=== PATIENT | male | born 1965 | race Caucasian/White ===

== ENCOUNTER 2017-05-09 15:00 | Outpatient (RCR) | payer MEDICAID, SELFPAY | END 2017-05-09 15:01 | disposition home or self-care (01) | LOC: PT 15:00 | PROVIDERS: PCP Emergency Medicine; Visit Provider Family Medicine | DX: M54.2 Cervicalgia (principal); M79.601 Pain in right arm | CPT/HCPCS: 97010; 97012; 97014; 97035; 97110; 97140; 97164; G0283 ==

== ENCOUNTER → 2017-10-20 13:24 | Outpatient (CLI) | payer MEDICAID, SELFPAY ==
[2017-10-20 15:57] LABS: Free T4 (Free Thyroxine) 1.21 ng/dl (0.76-1.46); Thyroid Stimulating Hormone 0.52 uIU/ml (0.358-3.740)
== END ==
PROVIDERS: PCP Emergency Medicine; Visit Provider Otolaryngology
DX: D49.7 Neoplasm of unspecified behavior of endocrine glands and other parts of nervous system (principal); E03.9 Hypothyroidism, unspecified
CPT/HCPCS: 36415; 84439; 84443

== ENCOUNTER → 2017-10-24 14:47 | Outpatient (CLI) | payer MEDICAID, SELFPAY ==
--- NOTE | 2017-10-24 14:49 | US_ITS ---
US thyroid HISTORY: ITS.REASON: thyroid neoplasm ORDERING PHYSICIAN: Ranjan Gonzales MD PATIENT AGE: 52 years Comparison: 08/30/2014 FINDINGS: Status post bilateral thyroidectomy. No nodules or residual tissue apparent. No abnormal fluid collections. IMPRESSION: Status post thyroidectomy with no masses or nodules apparent
== END ==
PROVIDERS: PCP Emergency Medicine; Visit Provider Otolaryngology
DX: E03.9 Hypothyroidism, unspecified (principal); D49.7 Neoplasm of unspecified behavior of endocrine glands and other parts of nervous system
CPT/HCPCS: 76536

== ENCOUNTER → 2018-04-06 12:56 | Outpatient (CLI) | payer MEDICAID, SELFPAY ==
[2018-04-06 13:30] LABS: Free T4 (Free Thyroxine) 1.29 ng/dl (0.76-1.46); Thyroid Stimulating Hormone 0.96 uIU/ml (0.358-3.740)
== END ==
PROVIDERS: Visit Provider Otolaryngology
DX: E03.9 Hypothyroidism, unspecified (principal)
CPT/HCPCS: 36415; 84439; 84443

== ENCOUNTER → 2019-04-05 11:31 | Outpatient (CLI) | payer OTHER, SELFPAY ==
[2019-04-05 12:59] LABS: Free T4 (Free Thyroxine) 1.38 ng/dl (0.76-1.46); Thyroid Stimulating Hormone 3.11 uIU/ml (0.358-3.740)
== END ==
PROVIDERS: Visit Provider Otolaryngology
DX: E03.9 Hypothyroidism, unspecified (principal)
CPT/HCPCS: 36415; 84439; 84443

== ENCOUNTER → 2020-04-10 11:45 | Outpatient (CLI) | payer OTHER, SELFPAY ==
[2020-04-10 13:16] LABS: Free T4 (Free Thyroxine) 1.38 ng/dl (0.78-2.19)
[2020-04-10 13:31] LABS: Thyroid Stimulating Hormone 0.47 uIU/mL (0.465-4.68)
== END ==
PROVIDERS: Visit Provider Otolaryngology
DX: E03.9 Hypothyroidism, unspecified (principal)
CPT/HCPCS: 36415; 84439; 84443

== ENCOUNTER → 2021-05-21 12:51 | Outpatient (CLI) | payer OTHER, SELFPAY ==
[2021-05-21 15:19] LABS: Basophils % 0.8 % (0.1-2.0); Eosinophils # 0.1 K/mm3 (0.0-0.4); Eosinophils % 1.6 % (0.1-12.0); Hemoglobin 14.5 g/dL (14.1-18.0); Lymphocytes # 2.2 K/mm3 (0.7-4.5); Lymphocytes % 46.9 % (10-50); Mean Corpuscular HGB Conc 32.3 g/dL (31.8-35.4); Mean Corpuscular Hemoglobin 30.1 pg (27.0-31.2); Mean Corpuscular Volume 93.1 fl (80-94); Mean Platelet Volume 9.4 fl (7.4-10.4); Monocytes # 0.4 K/mm3 (0.1-1.0); Monocytes % 8.6 % (1.7-9.3); Neutrophils % 42.2 % (37.0-80.0); Platelet Count 264 K/mm3 (142-424); Red Blood Count 4.83 M/mm3 (4.60-6.20); Red Cell Distribution Width 13.9 % (11.5-17.5); White Blood Count 4.6 K/mm3 (4.8-10.8)
[2021-05-21 16:24] LABS: Alanine Aminotransferase 28 U/L (12-78); Albumin Level 4.8 g/dl (3.5-5.0); Alkaline Phosphatase 43 U/L (38-126); Anion Gap 15.1 mEq/L (5-15); Aspartate Amino Transferase 35 U/L (17-59); Bilirubin,Total 0.5 mg/dl (0.2-1.3); Blood Urea Nitrogen 13 mg/dl (9-20); Calcium 9.6 mg/dl (8.4-10.2); Carbon Dioxide 27 mmol/L (22.0-30.0); Chloride 102 mmol/L (98-107); Chol/HDL Ratio 5.8 (1-3.5); Cholesterol 216 mg/dl (140-200); Estimated Glomerular Filt Rate 100 ml/min (>60); GFR (African American) 121 ML/MIN (>60); Globulin 2.4 g/dL (1.3-3.2); Glucose 99 mg/dl (74-100); HDL Cholesterol 37 mg/dl (40-60); Potassium 4.1 mmoL/L (3.5-5.1); Sodium 140 mmol/L (136-145); Total Protein,Serum 7.2 g/dl (6.3-8.2); Triglycerides 133 mg/dl (30-150); VLDL Cholesterol 27 mg/dL (0-40)
[2021-05-21 16:36] LABS: Direct LDL Cholesterol 137.77 mg/dL (100-129)
[2021-05-21 16:41] LABS: Free T4 (Free Thyroxine) 1.18 ng/dl (0.78-2.19)
[2021-05-21 16:56] LABS: Prostate Specific Ag Screen 0.6 ng/ml (0.0-4.0); Thyroid Stimulating Hormone 4.15 uIU/mL (0.465-4.68)
== END ==
PROVIDERS: Visit Provider Emergency Medicine
DX: C73 Malignant neoplasm of thyroid gland (principal); I10 Essential (primary) hypertension; E78.5 Hyperlipidemia, unspecified; E55.9 Vitamin D deficiency, unspecified; Z12.5 Encounter for screening for malignant neoplasm of prostate
CPT/HCPCS: 80053; 80061; 82306; 84439; 84443; 85025; G0103

== ENCOUNTER → 2021-06-02 09:22 | Outpatient (CLI) | payer OTHER, SELFPAY ==
--- NOTE | 2021-06-02 09:22 | MR_ITS ---
FINAL REPORT CLINICAL HISTORY: CHRONIC LBP X'S YEARS. PT STATES THAT BACK IS STIFF, PAIN RADIATES DOWN BILATERAL EXTREMITIES. FINDINGS: Multiplanar MR imaging of the lumbar spine was performed without contrast. On the sagittal T2-weighted images, disc degeneration is seen at several levels. There is no evidence of fracture. The conus has an unremarkable appearance. L1-2: No significant canal stenosis or neural foraminal narrowing. L2-3: No significant canal stenosis or neural foraminal narrowing. L3-4: An annular bulge is present. There is no significant canal stenosis or neural foraminal narrowing. L4-5: An annular bulge is present. There is mild bilateral neural foraminal narrowing. There is no significant canal stenosis. L5-S1: No significant canal stenosis or neural foraminal narrowing. IMPRESSION: Mild degenerative disc disease as above. Reviewed, Interpreted and Dictated by Дмитрий Prescott III, MD Transcribed by Rosa Maria Ribeiro Authenticated by Дмитрий Prescott III, MD on 06/03/2021 07:53:24 AM [facility]
--- NOTE | 2021-06-02 09:22 | MR_ITS ---
FINAL REPORT CLINICAL HISTORY: neck pain, chronic. nki. numbness tingling and pain that runs down bilateral extremities. FINDINGS: Multiplanar MR imaging of the cervical spine was performed without contrast. On the sagittal T2-weighted images, disc degeneration is seen at multiple levels. There is no evidence of fracture. There is mild kyphosis centered at C5-6. The cervical spinal cord has an unremarkable appearance without evidence of mass, edema or syrinx. No significant canal stenosis is identified. The cervicomedullary junction is normal. C2-3: There is no significant canal stenosis or neural foraminal narrowing. C3-4: There is no significant canal stenosis or neural foraminal narrowing. C4-5: An annular bulge is present. There is a new left paracentral disc protrusion which mildly indents the thecal sac. C5-6: There is disc osteophyte complex. There is a new small right paracentral disc protrusion which causes mild cord contouring. There is moderate bilateral neural foraminal narrowing, worse on the right as compared to the prior exam. There is mild central canal stenosis with an AP diameter of the thecal sac of 8 mm. C6-7: There is disc osteophyte complex. There is a stable small right paracentral disc protrusion. There is moderate right and mild left neural foraminal narrowing. C7-T1: There is no significant canal stenosis or neural foraminal narrowing. IMPRESSION: Multilevel degenerative disc disease as described above. New disc protrusions at C4-5 and C5-6 with a stable disc protrusion at C6-7. Reviewed, Interpreted and Dictated by Дмитрий Prescott III, MD Transcribed by Rosa Maria Ribeiro Authenticated by Дмитрий Prescott III, MD on 06/03/2021 07:53:25 AM [facility]
== END ==
PROVIDERS: PCP Emergency Medicine; Visit Provider Emergency Medicine
DX: M54.2 Cervicalgia (principal); M54.9 Dorsalgia, unspecified; M54.50 Low back pain, unspecified
CPT/HCPCS: 72141; 72148; 76376

== ENCOUNTER 2021-12-29 15:41 | Emergency (ER) | payer OTHER, SELFPAY ==
[2021-12-29 15:51] VITALS: BMI 29.4
--- NOTE | 2021-12-29 15:52 | CT_ITS ---
PROCEDURE INFORMATION: Exam: CT Abdomen And Pelvis With Contrast Exam date and time: 12/29/2021 4:24 PM Age: 56 years old Clinical indication: Abdominal pain; Generalized; Additional info: Rlq pain TECHNIQUE: Imaging protocol: Computed tomography of the abdomen and pelvis with contrast. Radiation optimization: All CT scans at this facility use at least one of these dose optimization techniques: automated exposure control; mA and/or kV adjustment per patient size (includes targeted exams where dose is matched to clinical indication); or iterative reconstruction. Contrast material: ISOVUE; Contrast volume: 75 ml; Contrast route: IV; COMPARISON: MR LUMBAR SPINE WO CON 06/02/2021 10:02 AM FINDINGS: Liver: Normal. No mass. Gallbladder and bile ducts: Normal. No calcified stones. No ductal dilation. Pancreas: Normal. No ductal dilation. Spleen: Normal. No splenomegaly. Adrenal glands: Normal. No mass. Kidneys and ureters: Mild right hydronephrosis and ureterectasis with abrupt transition of the caliber of the ureter in its distal 3rd, series 3, image 90 and contiguous. No obstructing stone is currently seen in this may be related to recent passage of a stone with some distal ureteral edema, or potentially a obstructing ureteral lesion. Urology consultation is recommended. Limited infiltration in the right perirenal fat. Stomach and bowel: Limited diverticulosis. Appendix: Normal appendix. Intraperitoneal space: Unremarkable. No free air. No significant fluid collection. Vasculature: Atherosclerosis without aneurysm. Lymph nodes: Unremarkable. No enlarged lymph nodes. Urinary bladder: Unremarkable as visualized. Reproductive: Unremarkable as visualized. Bones/joints: Unremarkable. No acute fracture. Soft tissues: Unremarkable. IMPRESSION: Mild right hydronephrosis and ureterectasis with abrupt transition of the caliber of the ureter in its distal 3rd, series 3, image 90 and contiguous. No obstructing stone is currently seen , and this may be related to recent passage of a stone with some distal ureteral edema, or potentially an obstructing ureteral lesion. Urology consultation is recommended.
[2021-12-29 15:53] VITALS: BP 177/90; PULSE 67; RESP 18; TEMP 36.6; O2SAT 98; BMI 29.4
[2021-12-29 15:57] LABS: Microscopic, Urine URINE MICROSCOPIC (MICROSCOPIC)
[2021-12-29 16:10] LABS: Basophils # 0.1 K/mm3 (0-0.2); Basophils % 0.6 % (0.1-2.0); Eosinophils # 0.1 K/mm3 (0.0-0.4); Eosinophils % 0.7 % (0.1-12.0); Hematocrit 44.9 % (42.0-52.0); Hemoglobin 14.9 g/dL (14.1-18.0); Lymphocytes # 1.4 K/mm3 (0.7-4.5); Lymphocytes % 11.7 % (10-50); Mean Corpuscular HGB Conc 33.1 g/dL (31.8-35.4); Mean Corpuscular Hemoglobin 29.5 pg (27.0-31.2); Mean Platelet Volume 8.5 fl (7.4-10.4); Monocytes # 0.6 K/mm3 (0.1-1.0); Monocytes % 4.6 % (1.7-9.3); Neutrophils # 10.1 K/mm3 (1.8-7.8); Neutrophils % 82.4 % (37.0-80.0); Platelet Count 267 K/mm3 (142-424); Red Blood Count 5.04 M/mm3 (4.60-6.20); Red Cell Distribution Width 13.5 % (11.5-17.5); White Blood Count 12.2 K/mm3 (4.8-10.8)
[2021-12-29 16:12] LABS: Appearance,Urine SL CLOUDY (Clear); Bilirubin,Urine Negative (Negative); Blood, Urine 1+ (Negative); Color,Urine YELLOW (Yellow); Glucose,Urine (UA) Negative (Negative); Ketones,Urine 1+ (Negative); Leukocyte Esterase,Urine Negative (Negative); Nitrate,Urine Negative (Negative); PH,Urine 5.5 (5.0-8.5); Protein,Urine Negative (Negative); Specific Gravity, Urine 1.025 (1.005-1.030); Urobilinogen,Urine 0.2 EU/dl (0.2)
[2021-12-29 16:12] LABS: Chloride 101 mmol/L (98-107); Potassium 4.3 mmoL/L (3.5-5.1); Sodium 138 mmol/L (136-145)
[2021-12-29 16:14] LABS: Amylase 77 U/L (30-110)
[2021-12-29 16:15] LABS: Alanine Aminotransferase 40 U/L (12-78); Albumin Level 4.6 g/dl (3.5-5.0); Alkaline Phosphatase 59 U/L (38-126); Anion Gap 15.3 mEq/L (5-15); Aspartate Amino Transferase 41 U/L (17-59); Bilirubin,Direct 0.2 mg/dl (0.0-0.4); Bilirubin,Indirect 0.2 mg/dL (0.0-0.9); Bilirubin,Total 0.4 mg/dl (0.2-1.3); Bilirubin,Unconjugated 0.3 mg/dL (0.0-1.1); Blood Urea Nitrogen 13 mg/dl (9-20); Calcium 9.8 mg/dl (8.4-10.2); Carbon Dioxide 26 mmol/L (22.0-30.0); Creatinine Clearance Estimated 89 mL/min (50-200); Estimated Glomerular Filt Rate 62 ml/min (>60); GFR (African American) 76 ML/MIN (>60); Glucose 125 mg/dl (74-100); Lipase 72 U/L (23-300); Total Protein,Serum 7.5 g/dl (6.3-8.2)
[2021-12-29 16:23] LABS: Squamous Epithelial Cell,Urine Occasional #/hpf (0-5); WBC,Urine Occasional #/hpf (0-3)
--- NOTE | 2021-12-29 16:27 | PC.NURSE ---
Pt to Rad
--- NOTE | 2021-12-29 16:31 | HMH.EDABDPAI ---
Discharge Plan Disposition Patient Disposition: Home, Self-Care Prescriptions Prescriptions: New tamsulosin [Flomax] 0.4 mg capsule 0.4 mg PO DAILY Qty: 10 0RF No Action fluticasone propionate 50 mcg/actuation spray,suspension See Rx Instructions .ROUTE .COMPLEX Qty: 16 5RF Dose Instruction: SPRAY 1 TIME IN EACH N OSTRIL ONCE A DAY Rx Instructions: SPRAY 1 TIME IN EACH N OSTRIL ONCE A DAY gabapentin 800 mg tablet 800 mg PO TID baclofen 10 mg tablet 10 mg PO TID hydrocodone-acetaminophen 10-325 mg tablet 1 tab PO Q8H PRN levothyroxine 125 mcg tablet 125 mcg PO DAILY Qty: 90 4RF montelukast 10 mg tablet See Rx Instructions .ROUTE .COMPLEX Qty: 90 3RF Dose Instruction: TAKE 1 TABLET 1 TIME EACH DAY IN THE EVENING FOR BREATHING PROBLEMS. Rx Instructions: TAKE 1 TABLET 1 TIME EACH DAY IN THE EVENING FOR BREATHING PROBLEMS. pantoprazole 40 mg tablet,delayed release (DR/EC) See Rx Instructions .ROUTE .COMPLEX Qty: 90 3RF Dose Instruction: TAKE 1 TABLET 1 TIME EACH DAY FOR REFLUX Rx Instructions: TAKE 1 TABLET 1 TIME EACH DAY pravastatin 40 mg tablet See Rx Instructions .ROUTE .COMPLEX Qty: 90 3RF Dose Instruction: TAKE 1 TABLET 1 TIME EACH DAY AT BEDTIME FOR CHOLESTEROL Rx Instructions: TAKE 1 TABLET 1 TIME EACH DAY AT BEDTIME FOR CHOLESTEROL lisinopril 10 mg tablet See Rx Instructions .ROUTE .COMPLEX Qty: 90 0RF Dose Instruction: TAKE 1 TABLET 1 TIME EACH DAY FOR BLOOD PRESSURE. Rx Instructions: TAKE 1 TABLET 1 TIME EACH DAY FOR BLOOD PRESSURE. polyethylene glycol 3350 17 gram/dose powder See Rx Instructions .ROUTE .COMPLEX Qty: 238 2RF Dose Instruction: MIX 17 GRAMS IN 8 OUNCES OF WATER AND DRINK ONCE A DAY. Rx Instructions: MIX 17 GRAMS IN 8 OUNCES OF WATER AND DRINK ONCE A DAY. Referrals Follow up/Referrals: Pastor Michel MD [Primary Care Provider] - See instructions Clinical Impressions Clinical Impression: Renal colic on right side Instructions Patient Instructions: DI for Kidney Stones Discharge ED Provider: Pastor Michel Abdominal Pain HPI General Chief Complaint: Abdominal Pain Stated Complaint: lower right Abd pain Time Seen by Provider: 12/29/21 16:05 Mode of Arrival: Wheelchair Source of Information: Patient and Medical Record Limitations: No Limitations Description of Symptoms (Recalled from ER Triage Doc. by RN): C/O RLQ pain since waking this AM. Denies difficulty with urination or BM. Advises that he vomited once earlier today. History of Present Illness HPI narrative: progressive rt sided lower abd pain since this am MD complaint: abdominal pain Onset (ago): hour(s) Consistency: constant Location: RLQ Severity: moderate Quality: sharp Associated symptoms: denies other symptoms Treatments prior to arrival: prescription analgesics Related Data Home Medications Medication Instructions Recorded Confirmed gabapentin 800 mg tablet 800 mg PO TID Pain 03/24/17 12/11/21 baclofen 10 mg tablet 10 mg PO TID Pain 10/19/18 12/11/21 hydrocodone 10 mg-acetaminophen 1 tab PO Q8H PRN 05/21/21 12/11/21 325 mg tablet Previous Rx's Medication Instructions Recorded levothyroxine 125 mcg tablet 125 mcg PO DAILY THYROID #90 tabs 08/20/21 montelukast 10 mg tablet See Rx Instructions .Route 08/20/21 .COMPLEX #90 tabs pantoprazole 40 mg tablet,delayed See Rx Instructions .Route 08/20/21 release .COMPLEX #90 tabs pravastatin 40 mg tablet See Rx Instructions .Route 08/20/21 .COMPLEX #90 tabs lisinopril 10 mg tablet See Rx Instructions .Route 08/23/21 .COMPLEX #90 tabs polyethylene glycol 3350 17 See Rx Instructions .Route 11/06/21 gram/dose oral powder .COMPLEX #238 grams fluticasone propionate 50 See Rx Instructions .Route 12/11/21 mcg/actuation nasal .COMPLEX #16 grams spray,suspension tamsulosin 0.4 mg capsule (Flomax) 0.4 mg PO DAILY #10
--- NOTE | 2021-12-29 16:34 | PC.NURSE ---
Pt returned from Rad via w/c and hooked back up to monitor
[2021-12-29 16:45] VITALS: BP 166/86; PULSE 80; O2SAT 96
--- NOTE | 2021-12-29 18:30 | PC.NURSE ---
pt family called back for update
[2021-12-29 18:35] VITALS: BP 127/87; PULSE 91; RESP 20; O2SAT 95
[2021-12-29 19:02] VITALS: BP 127/87; PULSE 94; RESP 18; TEMP 36.9; O2SAT 94
== END 2021-12-29 19:02 | disposition home or self-care (01) ==
PROVIDERS: Emergency Provider Emergency Medicine; PCP Emergency Medicine
DX: R10.31 Right lower quadrant pain (principal); R39.198 Other difficulties with micturition; Z79.51 Long term (current) use of inhaled steroids; Z79.899 Other long term (current) drug therapy
CPT/HCPCS: 74177; 80048; 80076; 81001; 82150; 83690; 85025; 96361; 96374; 96375; 99285; J2405; Q9967

== ENCOUNTER → 2022-05-15 14:04 | Outpatient (CLI) | payer OTHER, SELFPAY ==
--- NOTE | 2022-05-15 14:14 | CA_ITS ---
FINAL REPORT TECHNIQUE: Color Doppler, duplex Doppler and michel scale sonography of the bilateral neck arterial vasculature was performed. Velocities were measured in the carotid arteries. Stenosis evaluation based on the validated velocity criteria. CLINICAL HISTORY: bruit and dizziness, HTN, hyperlipidemia. FINDINGS: The peak systolic velocity of the right common carotid artery is 108 cm/s. The peak systolic velocity of the right internal carotid artery is 92 cm/s and end diastolic velocity 45 cm/s. The ICA CCA ratio was 0.98. A small amount of plaque is present. The right external carotid artery is patent. The right vertebral artery is patent with antegrade flow. The peak systolic velocity of the left common carotid artery is 123 cm/s. The peak systolic velocity of the left internal carotid artery is 106 cm/s and end diastolic velocity 48 cm/s. The ICA CCA ratio was 1.0. A small amount of plaque is present. The left external carotid artery is patent.The left vertebral artery is patent with antegrade flow. IMPRESSION: Less than 50% bilateral carotid stenoses. Bilateral patent vertebral arteries with antegrade flow. If indicated, CTA or MRA could further evaluate. Reviewed, Interpreted and Dictated by Дмитрий Prescott III, MD Transcribed by May Banks Authenticated and [facility]
== END ==
PROVIDERS: PCP Emergency Medicine; Visit Provider Emergency Medicine
DX: R09.89 Other specified symptoms and signs involving the circulatory and respiratory systems (principal); R42 Dizziness and giddiness
CPT/HCPCS: 93880

== ENCOUNTER → 2022-05-27 09:36 | Outpatient (CLI) | payer OTHER, SELFPAY ==
[2022-05-27 11:03] LABS: Blood Urea Nitrogen 12 mg/dl (9-20); Estimated Glomerular Filt Rate 77 ml/min (>60); GFR (African American) 93 ML/MIN (>60)
== END ==
PROVIDERS: PCP Emergency Medicine; Visit Provider Emergency Medicine
DX: I10 Essential (primary) hypertension (principal)
CPT/HCPCS: 36415; 82565; 84520

== ENCOUNTER → 2022-05-28 12:26 | Outpatient (CLI) | payer OTHER, SELFPAY ==
--- NOTE | 2022-05-28 12:26 | CT_ITS ---
FINAL REPORT CLINICAL HISTORY: carotid stenosis FINDINGS: Thin section axial CT with IV contrast supplemented with multiplanar reconstruction under CT angiogram protocol. This study was performed with techniques to keep radiation doses as low as reasonably achievable (ALARA). Individualized dose reduction techniques using automated exposure control or adjustment of mA and/or kV according to the patient''s size were employed. NASCET criteria was utilized during interpretation. Aortic arch: Arch shows no significant narrowing. Great vessel origins are widely patent. Right carotid: Very mild calcification. Left than 50% stenosis of the proximal ICA. Remaining ICA is patent to the skull base. Left carotid: Less than 50% stenosis of the proximal left ICA due to calcified plaque. Vertebral: Left vertebral artery is dominant. No significant stenosis is present. IMPRESSION: Less than 50% bilateral carotid stenosis. Reviewed, Interpreted and Dictated by La Doty MD Transcribed by Anderson Landa Authenticated and [facility]
== END ==
PROVIDERS: PCP Emergency Medicine; Visit Provider Emergency Medicine
DX: I65.23 Occlusion and stenosis of bilateral carotid arteries (principal)
CPT/HCPCS: 70498; Q9967

== ENCOUNTER → 2022-11-01 10:11 | Outpatient (CLI) | payer OTHER, SELFPAY ==
--- NOTE | 2022-11-01 10:17 | CT_ITS ---
FINAL REPORT TECHNIQUE: Axial images through the abdomen and pelvis were performed without contrast. This study was performed with techniques to keep radiation doses as low as reasonably achievable, (ALARA). Individualized dose reduction techniques using automated exposure control or adjustment of mA and/or kV according to the patient's size were employed. CLINICAL HISTORY: kidney stone, rt flank pain COMPARISON: 12/29/2021 FINDINGS: Abdomen: The lung bases are clear. The liver parenchyma is homogeneous. The gallbladder is present. The spleen, pancreas, adrenals and kidneys are unremarkable. There is marked right hydronephrosis and proximal hydroureter. There is abnormal soft tissue density associated with the mid right ureter. Mild surrounding stranding is identified. There is an apparent soft tissue mass in the mid right ureter well seen on images 35 and 36 of series 601. There has been interval development of adenopathy adjacent to the ureteral mass, largest measuring 2.8 cm in greatest dimension. Other nodes measure up to 1.8 cm in greatest dimension. Pelvis: The urinary bladder is decompressed. There are scattered diverticula throughout the sigmoid colon. The appendix is not visualized. IMPRESSION: Soft tissue mass in the mid right ureter highly concerning for the possibility of transient cell carcinoma. Recommend retrograde ureterogram and urologic evaluation. Interval development of extensive adenopathy. Reviewed, Interpreted and Dictated by Oscar Fried MD Transcribed by May Banks Authenticated and [facility]
[2022-11-01 12:54] LABS: MANUAL DIFFERENTIAL MANUAL DIFFERENTIAL (MANUAL DIFF)
[2022-11-01 13:03] LABS: Basophils % 0.5 % (0.1-2.0); Eosinophils # 0.1 K/mm3 (0.0-0.4); Eosinophils % 1.4 % (0.1-12.0); Hematocrit 44.5 % (42.0-52.0); Hemoglobin 14.6 g/dL (14.1-18.0); Lymphocytes # 2.2 K/mm3 (0.7-4.5); Lymphocytes % 28.6 % (10-50); Mean Corpuscular HGB Conc 32.8 g/dL (31.8-35.4); Mean Corpuscular Hemoglobin 29.7 pg (27.0-31.2); Mean Corpuscular Volume 90.4 fl (80-94); Mean Platelet Volume 8.7 fl (7.4-10.4); Monocytes # 0.6 K/mm3 (0.1-1.0); Monocytes % 8.3 % (1.7-9.3); Neutrophils # 4.7 K/mm3 (1.8-7.8); Neutrophils % 61.2 % (37.0-80.0); Platelet Count 291 K/mm3 (142-424); Red Blood Count 4.92 M/mm3 (4.60-6.20); Red Cell Distribution Width 13.3 % (11.5-17.5); White Blood Count 7.6 K/mm3 (4.8-10.8)
[2022-11-01 13:23] LABS: Lymphocytes % 33 % (10-50); Monocytes % 9 % (2-9); Neutrophils % 58 % (42-76); Platelet Estimate Normal; RBC Morphology Normal; Total Cells Counted 100
[2022-11-01 18:47] LABS: Alanine Aminotransferase 40 U/L (12-78); Albumin Level 4.9 g/dl (3.5-5.0); Albumin/Globulin Ratio 1.4 (1.1-1.8); Alkaline Phosphatase 75 U/L (38-126); Anion Gap 19.6 mEq/L (5-15); Aspartate Amino Transferase 36 U/L (17-59); Bilirubin,Indirect 0.2 mg/dL (0.0-0.9); Bilirubin,Total 0.2 mg/dl (0.2-1.3); Bilirubin,Unconjugated 0.3 mg/dL (0.0-1.1); Blood Urea Nitrogen 18 mg/dl (9-20); Calcium 10.2 mg/dl (8.4-10.2); Carbon Dioxide 27 mmol/L (22.0-30.0); Chloride 97 mmol/L (98-107); Cholesterol 217 mg/dl (140-200); Estimated Glomerular Filt Rate 48 ml/min (>60); GFR (African American) 58 ML/MIN (>60); Globulin 3.4 g/dL (1.3-3.2); Glucose 106 mg/dl (74-100); HDL Cholesterol 27 mg/dl (40-60); Potassium 4.6 mmoL/L (3.5-5.1); Sodium 139 mmol/L (136-145); Total Protein,Serum 8.3 g/dl (6.3-8.2); Triglycerides 162 mg/dl (30-150); VLDL Cholesterol 32 mg/dL (0-40)
[2022-11-01 18:58] LABS: Direct LDL Cholesterol 142.43 mg/dL (100-129)
[2022-11-01 19:04] LABS: 25-OH Vitamin D, Total 40.6 ng/mL (30-100)
[2022-11-01 19:18] LABS: Thyroid Stimulating Hormone 3.79 uIU/mL (0.465-4.68)
== END ==
PROVIDERS: Family Medicine; PCP Emergency Medicine; Visit Provider Emergency Medicine
DX: E55.9 Vitamin D deficiency, unspecified (principal); E78.5 Hyperlipidemia, unspecified; N39.0 Urinary tract infection, site not specified; E66.3 Overweight; Z68.27 Body mass index [BMI] 27.0-27.9, adult; N23 Unspecified renal colic; K21.9 Gastro-esophageal reflux disease without esophagitis
CPT/HCPCS: 74176; 80053; 80061; 80076; 82306; 84439; 84443; 85007; 85014; 85018; 85048; 85049; 87086

== ENCOUNTER → 2022-12-30 09:10 | Outpatient (CLI) | payer OTHER, SELFPAY ==
[2022-12-30 19:35] LABS: Anion Gap 17.6 mEq/L (5-15); Carbon Dioxide 25 mmol/L (22.0-30.0); Chloride 101 mmol/L (98-107); Potassium 4.6 mmoL/L (3.5-5.1); Sodium 139 mmol/L (136-145)
== END ==
PROVIDERS: PCP Internal Medicine; Visit Provider Internal Medicine
DX: E87.6 Hypokalemia (principal)
CPT/HCPCS: 80051

== ENCOUNTER 2023-03-06 10:23 | Outpatient (CLI) | payer OTHER, SELFPAY ==
[2023-03-06 19:09] LABS: Amphetamine/Metha Screen,Urine Negative ng/ml (<1000); Barbiturates Screen,Urine Negative ng/ml (<200); Benzodiazepines Screen,Urine Negative ng/ml (<200); Cannabinoid Screen,Urine Positive ng/ml (<50); Cocaine Screen,Urine Negative ng/ml (<300)
[2023-03-06 19:31] LABS: Methadone Screen,Urine Negative ng/ml (<300); Opiate Screen,Urine Negative ng/ml (<300); Phencyclidine Screen,Urine Negative ng/ml (<25)
== END 2023-03-06 23:59 ==
PROVIDERS: PCP Internal Medicine; Visit Provider Internal Medicine
DX: Z79.899 Other long term (current) drug therapy (principal)
CPT/HCPCS: 80307

== ENCOUNTER 2023-06-26 07:38 | Outpatient (CLI) | payer OTHER, SELFPAY ==
--- NOTE | 2023-06-26 07:45 | CT_ITS ---
FINAL REPORT TECHNIQUE: Routine axial images were obtained from the lung apices to below the diaphragm following IV contrast administration. Individualized dose reduction techniques using automated exposure control or adjustment of the mA and/or kV according to the patient size were employed. CLINICAL HISTORY: MALIGNANT TUMOR OF RT URETER COMPARISON: None FINDINGS: The mediastinal vasculature is adequately opacified. There is a right-sided chest port terminating in the SVC. No pleural or pericardial effusion is seen. No adenopathy or mass lesion is present. There are multiple nodular passages bilaterally which are ill-defined and well-seen in the superior segment of the left lower lobe on image 41 of series 6, this measures approximately 2 cm. IMPRESSION: Ill-defined nodular opacities which may be inflammatory or neoplastic. Recommend 4 to 6-week follow-up. Reviewed, Interpreted and Dictated by Oscar Fried MD Transcribed by PEDRO Flores Authenticated and [facility]
--- NOTE | 2023-06-26 07:45 | CT_ITS ---
FINAL REPORT TECHNIQUE: Pre-and postcontrast axial CT images of the abdomen and pelvis were obtained. Coronal reformatted images were also obtained and reviewed.This study was performed with techniques to keep radiation doses as low as reasonably achievable (ALARA). Individualized dose reduction techniques using automated exposure control or adjustment of mA and/or kV according to the patient''''s size were employed. CLINICAL HISTORY: MALIGNANT TUMOR OF RT URETER COMPARISON: 11/01/2022 FINDINGS: CT OF THE ABDOMEN AND PELVIS WITH AND WITHOUT CONTRAST Abdomen: The liver is mildly fatty infiltrated. The gallbladder is present.. The spleen is unremarkable. No adrenal mass is present. The pancreas has an unremarkable appearance. There is a right ureteral stent present with the proximal loop of the ureter within the right renal pelvis and the distal loop terminating in the urinary bladder. There is soft tissue thickening of the mid right ureter. The aorta is normal in caliber. There are small lymph nodes in the retroperitoneum, nonspecific. There are slightly more evident from the prior exam. No mass or abnormal fluid collection is seen. There is a large amount of stool throughout the colon. Pelvis: The appendix is not well-visualized. The urinary bladder thickened. Wall is diffusely No inflammatory process is seen. There is no evidence of bowel obstruction. Precontrast imaging demonstrates no evidence of nephrolithiasis. IMPRESSION: Interval placement of right ureteral stent. Abnormal urinary bladder wall thickening, may be due to cystitis. Small retroperitoneal lymph nodes more numerous from prior exam, cannot exclude metastatic adenopathy. Consider PET/CT for further evaluation. Reviewed, Interpreted and Dictated by Oscar Fried MD Transcribed by PEDRO Flores Authenticated and . [facility]
[2023-06-26 08:30] LABS: Blood Urea Nitrogen 19 mg/dl (9-20); Estimated Glomerular Filt Rate 44 ml/min (>60); GFR (African American) 54 ML/MIN (>60)
[2023-06-26] MEDS: SODIUM CHLORIDE 0.9% 10ML FLUSH SYRINGE 10 ML IV (09:20)
[2023-06-26] MEDS: SODIUM CHLORIDE 0.9% 10ML SYR (RAD ONLY) 10 ML IV (09:38)
[2023-06-26] MEDS: IOPAMIDOL-370 (76%);100ML BOTTLE 75 ML IV (09:38)
[2023-06-26 15:34] LABS: Free Thyroxine Index 3.1 ug/dL (5.93-13.13); T4 (Thyroxine) 12.1 ug/dl (5.53-11.0); Triiodothryronine (T3) Uptake 26 % (23.5-40.5)
== END 2023-06-26 09:25 | disposition home or self-care (01) ==
LOC: RAD 07:38
PROVIDERS: PCP Internal Medicine; Visit Provider Internal Medicine Hematology & Oncology
DX: C66.1 Malignant neoplasm of right ureter (principal)
CPT/HCPCS: 36415; 71260; 74178; 82565; 84436; 84443; 84479; 84520; 96523; J1642; Q9967

== ENCOUNTER 2023-12-10 15:53 | Outpatient (CLI) | payer OTHER, SELFPAY ==
[2023-12-10 16:05] VITALS: BP 101/70; PULSE 94; RESP 18; TEMP 36.6; O2SAT 98
[2023-12-10] MEDS: 0.9 % SODIUM CHLORIDE 1000ML 1,000 ML 999 ML IV (16:05)
[2023-12-10] MEDS: SODIUM CHLORIDE 0.9% 10ML FLUSH SYRINGE 10 ML IV (16:05)
[2023-12-10 17:15] VITALS: BP 109/62; PULSE 89; RESP 18; O2SAT 98
== END 2023-12-10 17:18 | disposition home or self-care (01) ==
LOC: INF 15:55
PROVIDERS: PCP Internal Medicine; Visit Provider Internal Medicine Hematology & Oncology
DX: E86.0 Dehydration (principal); T45.1X5A Adverse effect of antineoplastic and immunosuppressive drugs, initial encounter; K52.1 Toxic gastroenteritis and colitis; C67.9 Malignant neoplasm of bladder, unspecified
CPT/HCPCS: 96360; J1642; J7030

== ENCOUNTER 2024-04-05 14:29 | Outpatient (CLI) | payer OTHER, SELFPAY ==
[2024-04-05 14:38] VITALS: BP 119/66; PULSE 94; RESP 18; O2SAT 97
[2024-04-05] MEDS: 0.9 % SODIUM CHLORIDE 1000ML 1,000 ML 999 ML IV (14:38)
[2024-04-05 15:45] VITALS: BP 114/79; PULSE 69; RESP 18; O2SAT 96
== END 2024-04-05 15:45 | disposition home or self-care (01) ==
LOC: INF 14:30
PROVIDERS: PCP Internal Medicine; Visit Provider Internal Medicine Hematology & Oncology
DX: C66.9 Malignant neoplasm of unspecified ureter (principal)
CPT/HCPCS: 96360; J1642; J7030

== ENCOUNTER 2024-05-03 11:58 | Outpatient (CLI) | payer OTHER, SELFPAY ==
[2024-05-03 12:15] VITALS: BP 148/28; PULSE 103; RESP 18; TEMP 36.8; O2SAT 98
[2024-05-03 13:15] VITALS: BP 113/56; PULSE 100
[2024-05-03] MEDS: SODIUM CHLORIDE 0.9% 10ML FLUSH SYRINGE 10 ML IV (13:15)
[2024-05-03] MEDS: 0.9 % SODIUM CHLORIDE 1000ML 1,000 ML 999 ML IV (13:15)
== END 2024-05-03 13:20 | disposition home or self-care (01) ==
PROVIDERS: PCP Internal Medicine; Visit Provider Internal Medicine Hematology & Oncology
DX: C66.9 Malignant neoplasm of unspecified ureter (principal); C73 Malignant neoplasm of thyroid gland
CPT/HCPCS: 96360; J1642; J7030

== ENCOUNTER 2024-06-23 12:37 | Outpatient (CLI) | payer OTHER, SELFPAY ==
[2024-06-23 12:53] VITALS: BP 88/51; PULSE 94; RESP 17; O2SAT 95
[2024-06-23] MEDS: 0.9 % SODIUM CHLORIDE 1000ML 1,000 ML 999 ML IV (12:53)
[2024-06-23 13:53] VITALS: BP 91/50; PULSE 83; RESP 16
== END 2024-06-23 14:00 | disposition home or self-care (01) ==
LOC: INF 12:38
PROVIDERS: PCP Family Medicine; Visit Provider Internal Medicine Hematology & Oncology
DX: C66.1 Malignant neoplasm of right ureter (principal)
CPT/HCPCS: 96360; J1642; J7030

== ENCOUNTER 2024-06-30 12:34 | Outpatient (CLI) | payer OTHER, SELFPAY ==
[2024-06-30 12:45] VITALS: BP 101/59; PULSE 98; RESP 18; TEMP 36.6; O2SAT 99
[2024-06-30] MEDS: 0.9 % SODIUM CHLORIDE 1000ML 1,000 ML 999 ML IV (12:45)
[2024-06-30] MEDS: SODIUM CHLORIDE 0.9% 10ML FLUSH SYRINGE 10 ML IV (13:10)
[2024-06-30 13:45] VITALS: BP 92/52; PULSE 93; RESP 18; O2SAT 99
== END 2024-06-30 13:45 | disposition home or self-care (01) ==
LOC: INF 12:35
PROVIDERS: PCP Family Medicine; Visit Provider Internal Medicine Hematology & Oncology
DX: C66.9 Malignant neoplasm of unspecified ureter (principal)
CPT/HCPCS: 96360; J1642; J7030

== ENCOUNTER 2024-07-07 12:33 | Outpatient (CLI) | payer OTHER, SELFPAY ==
[2024-07-07 12:45] VITALS: BP 99/67; PULSE 105; RESP 18; O2SAT 98
[2024-07-07] MEDS: 0.9 % SODIUM CHLORIDE 1000ML 1,000 ML 999 ML IV (12:45)
[2024-07-07 13:55] VITALS: BP 82/42; PULSE 98; RESP 18; O2SAT 98
== END 2024-07-07 13:55 | disposition home or self-care (01) ==
LOC: INF 12:34
PROVIDERS: PCP Family Medicine; Visit Provider Internal Medicine Hematology & Oncology
DX: C66.9 Malignant neoplasm of unspecified ureter (principal)
CPT/HCPCS: 96360; J1642; J7030

== ENCOUNTER 2024-07-15 12:41 | Outpatient (CLI) | payer OTHER, SELFPAY ==
[2024-07-15] MEDS: 0.9 % SODIUM CHLORIDE 1000ML 1,000 ML 999 ML IV (12:59)
[2024-07-15 13:00] VITALS: BP 92/53; PULSE 95; RESP 16; O2SAT 98
[2024-07-15 14:00] VITALS: BP 91/56; PULSE 91; RESP 16
== END 2024-07-15 14:10 | disposition home or self-care (01) ==
LOC: INF 12:42
PROVIDERS: PCP Family Medicine; Visit Provider Internal Medicine Hematology & Oncology
DX: C66.9 Malignant neoplasm of unspecified ureter (principal)
CPT/HCPCS: 96360; J1642; J7030

== ENCOUNTER 2024-08-12 11:35 | Outpatient (CLI) | payer OTHER, SELFPAY ==
--- OUTSIDE RECORDS SUMMARY | 2024-06-14 13:00 | XMS_ITS | Encounter Summary ---
Author Organization Healthcare Address [address] [place] [address] Care Team Providers Care Electrocardiogram Technician Name Role Phone Efren Roy DO Unavailable [phone] Efren Roy DO Primary Care Provider [phone] Rosa Maria Beltran APRN Unavailable [phone] Bobby Vazquez MD Unavailable Cally Henderson Unavailable Reason for Visit * Reason Comments Follow-up * Episode Based Medications (Routine) - Authorized Specialty Diagnoses / Procedures Referred By Contac t Referred To Contact Diagnoses Dehydration Procedures IV Fluid NO Electrolytes Bobby Vazquez MD [address] [facility] [address] [place] [address] Phone: tel: fax: [facility] In[facility] [address] [place] [address] Phone: tel: fax: Referral ID Status Reason Start Date Expiration Date V isits Requested Visits Authorized [id number] Authorized 03/28/2023 09/26/2024 1 1 Encounter Details Date Type Department Care Team (Latest Contact Info) Description 06/14/2024 1:00 PM EDT Clinical Support [facility] [address] [facility], 2nd [place] [address] Dehydration (Primary Dx) Social History Tobacco Use Types Packs/Day Years Used Date Smoking Tobacco: Never Cigarettes 1.5 30 - 2006 Passive Smoke Exposure: Yes Smokeless Tobacco: Current Snuff Tobacco Cessation:Ready to Q uit: Not Asked; Counseling Given: No Comments:10 x daily Alcohol Use Standard Drinks/Week Comments Not Currently 0 (1 standard drink = 0.6 oz pure alcohol) Alcoholic Drinks/day: History of alcohol use Humiliation, Afraid, Rape, and Kick questionnair e Answer Date Recorded Within the last year, have y ou been afraid of your partner or ex-partner? No 05/27/2024 Within the last year, have y ou been humiliated or emotionally abused in other ways by your partner or ex-partner? No Within the last year, have y ou been kicked, hit, slapped, or otherwise physically hurt by your partner or ex-partner? No 05/27/2024 Within the last year, have y ou been raped or forced to have any kind of sexual activity by your partner or ex-partner? No 05/27/2024 PHQ-2 Answer Date Recorded Patient Health Questionnaire-2 Score 0 06/11/2024 Hunger Vital Sign Answer Date Recorded Within the past 12 months, y ou worried that your food would run out before you got the money to buy more. Never true 05/28/19 25 Within the past 12 months, t he food you bought just didn't last and you didn't have money to get more. Never true 05/27/2024 PRAPARE - Transportation Answer Date Re corded In the past 12 months, has l ack of transportation kept you from medical appointments or from getting medications? No 05/02 In the past 12 months, has l ack of transportation kept you from meetings, work, or from getting things needed for daily living? No 05/27/2024 Housing Stability Vital Sign Answer Epi e Recorded In the last 12 months, was t here a time when you were not able to pay the mortgage or rent on time? No 02/28/2023 Number of Places Lived in the Last Year Not on f ile 02/28/2023 In the last 12 months, was t here a time when you did not have a steady place to sleep or slept in a fpc (including now)? No 02/28/2023 PHQ-9 Answer Date Recorded Patient Health Questionnaire-9 Score 0 03/19/2024 Housing Stability Vital Sign Answer Epi e Recorded In the last 12 months, was t here a time when you were not able to pay the mortgage or rent on time? No 05/27/2024 In the past 12 months, how m any times have you moved where you were living? 0 05/27/2024 At any time in the past 12 m [facility], were you homeless or living in a fpc (including now)? No 05/27/2024 CAGE ASSESSMENT Answer Date Recorded Cage unable to access Not on file 02/27/2023 Cage max number of drinks Not on file 2022 Cage Beverages a week Not on file 02/27/2023 Have you ever felt you should CUT down on your d rinking? 0 02/27/2023 Have you been ANNOYED by people criticizing your drinking? 0 02/27/2023 Have you felt GUILTY about your drinking? 0 02/27/2023 Have you had a drink first t tianna in the morning (EYE-ENDOSCOPY SPECIALTY TECHNICIAN) to steady your nerves or to get rid of a hangover? 0 02/27/2023 CAGE Questionnaire Score 0 023 Utilities Answer Date Recorded In the past 12 months has th e electric, gas, oil, or water company threatened to shut off services in your home? No 05/27/2024 PHQ-2A Answer Date Recorded Depression Risk 0 04/30/2024 Sex and Gender Information Value Date Recorded Sex Assigned at Male 07/27/2024 6:43 PM EDT Legal Sex Male 6:40 PM EDT Gender Identity Male 07/27/2024 6:43 PM EDT Sexual Orientation Not on file documented as of this encounter Last Filed Vital Signs Vital Sign Reading Time Taken Comments Blood Pressure 101/67 06/14/2024 1:03 PM EDT Pulse 70 06/14/2024 1:03 PM EDT Temperature 36.7 C (98 F) 06/14/2024 1:03 PM EDT Respiratory Rate 16 06/14/2024 1:03 PM EDT Oxygen Saturation 98% 06/14/2024 1:03 PM EDT Inhaled Oxygen Concentration - - Weight 79.8 kg (175 lb 14.8 oz) 025 11:37 AM EDT Height - - Body Mass Index 25.24 06/11/2024 9:32 AM EDT documented in this encounter Miscellaneous Notes * Clinician Note - Leticia Dmuont RN - 06/14/2024 1:00 PM EDT This patient presents today for IVFs. Patient informed of the process for port access and IVF administration - patient agreeable and verbalized understanding. Port accessed. Patient denies any questions/concerns that need addressed with his provider. IVFs started. IVFs complete. Patient denies any distress - lung sounds clear. Vital signs stable. Port heparin locked and deaccessed. Patient instructed to contact their primary oncology office for any questions/concerns following being discharged from their appointment today. Patient stable and discharged. documented in this encounter Plan of Treatment Upcoming Encounters Date Type Department Care Team (Late st Contact Info) Description 08/27/2024 1:00 PM EDT Office Visit [facility] [address] [place] [address] Bobby Vazquez MD [address] [facility] Shantel Kenneth [address] [address] 08/27/2024 1:00 PM EDT Clinical Support [facility] [address] [place] [address] 08/27/2024 2:30 PM EDT Appointment [facility] Infusion [facility] [address] [place] [address] 10/19/2024 11:30 AM EDT Office Visit [facility] [address] [place] [address] Kym Romero APRN [address] [facility] Sh[address] Kenneth [address] [address] 11/24/2024 11:00 AM EDT Office Visit [facility] [address] [place] [address] Adal Franklin MD [address] [facility] [address] [place] [address] 12/15/2024 1:00 PM EDT Office Visit [facility] [address] [place] [address] Efren Fallon MD [address] [place] [address] 12/29/2024 9:30 AM EDT Clinical Support [facility] [address] [facility] [place] [address] 12/29/2024 10:00 AM EDT Office Visit [facility] [address] [id number] Carlito Mccartney MD [address] [facility] [address] [place] [address] 03/23/2025 10:40 AM EST Office Visit [facility] [address] [facility], [address] [place] [address] Arabella Romero, INTERNAL COMMUNICATIONS WRITER [address] [place] [address] documented as of this encounter Visit Diagnoses Diagnosis Dehydration- Primary documented in this encounter Administered Medications Inactive Administered Medications - up to 3 most recent administrations Medication Order MAR Action Action Date Dose Rate Site sodium chloride 0.9 % bolus 1,000 mL 1,000 mL, Intravenous, Once, 1 dose, On Fri06/14/24 at 1230, Administer over 60 Minutes, RoutineIndications:Dehydrat ion New Bag 06/14/2024 12:01 PM EDT 1,000 mL 1000 mL/hr documented in this encounter Additional Health Concerns Assessment Noted Time PHQ-9 Depression Total Score: 0 03/19/19 25 8:50 AM EST A fall risk assessment has been complete d for the patient 06/14/2024 11:40 AM EDT A Body Mass Index follow-up plan has been documented for the patient 05/27/2024 1:13 PM EDT documented as of this encounter Care Teams Electrocardiogram Technician Relationship Specialty Start Date End Date Efren Roy DO [address] [place] [address] PCP - General 03/04/23 Efren Roy DO [address] [place] [address] Pain Medicine 01/03/23 Rosa Maria Beltran APRN [address] [facility] [address] [place] [phone] Nurse Practitioner Family Medicine 07/21/23 Bobby Vazquez MD [address] [facility] [address] [place] [address] Consulting Physician Medical Oncology 09/17/23 Cally Henderson PA [address] [place] [address] Physician Tube Inspector Urology 09/17/23 documented as of this encounter
--- OUTSIDE RECORDS SUMMARY | 2024-06-16 10:00 | XMS_ITS | Encounter Summary ---
Author Organization [facility] Address [address] [place] [address] Care Team Providers Care It Infrastructure Consultant Name Role Phone Efren Roy DO Unavailable [phone] Efren Roy DO Primary Care Provider [phone] Rosa Maria Beltran APRN Unavailable [phone] Bobby Vazquez MD Unavailable Cally Henderson Unavailable [phone] Encounter Details Date Type Department Care Team (Latest Contact Info) Description 06/16/2024 10:00 AM EDT Clinical Support [facility] Multidisciplinary Oncology Clinic [address] [place] [address] Malignant tumor of right ureter (CMS/HCC) Social History Tobacco Use Types Packs/Day Years Used Date Smoking Tobacco: Never Cigarettes 1.5 30 - 2006 Passive Smoke Exposure: Yes Smokeless Tobacco: Current Snuff Comments:10 x daily Alcohol Use Standard Drinks/Week [...] Date Recorded Patient Health Questionnaire-2 Score 0 06/16/2024 Hunger Vital Sign Answer Date Recorded Within [...] place to sleep or slept in a half-way (including now)? No 02/28/2023 PHQ-9 Answer Date [...] any time in the past 12 m [facility], were you homeless or living in a half-way (including now)? No 05/27/2024 CAGE ASSESSMENT Answer [...] drink first t tianna in the morning (EYE-SCALER PACKER) to steady your nerves or to get rid of a hangover? 0 02/27/2023 CAGE Questionnaire Score 0 023 Utilities Answer Date Recorded In the past 12 months has th e [employer], gas, oil, or water company threatened to shut off services in your home? No 05/27/2024 PHQ-2A Answer Date Recorded Depression Risk 0 04/30/2024 Sex and Gender Information Value Date Recorded Sex Assigned at Male 07/27/2024 6:43 PM EDT Legal Sex Male 6:40 PM EDT Gender Identity Male 07/27/2024 6:43 PM EDT Sexual Orientation Not on file documented as of this encounter Functional Status * Over the past 2 weeks, how often have you been bothered by any of the following problems? Question Answer Date of Assessment Author Little interest or pleasure in doing things Not at all 06/16/2024 9:44 AM EDT Mair Newell Feeling down, depressed, or hopeless Not at all 06/16/2024 9:44 AM EDT Mari Newell Patient Health Questionnaire -2 Score 0 06/16/2024 9:44 AM EDT Mari Newell * Question Answer Date of Assessment Author Thoughts that you would be better off or hurting yourself in some way Not at all 06/16/2024 9:44 AM EDT Trini Newell documented as of this encounter Plan of Treatment Upcoming Encounters Date Type Department Care Team (Late st Contact Info) Description 08/27/2024 1:00 PM EDT Office Visit [facility] Multidisciplinary Oncology Clinic [address] [place] [address] Bobby Vazquez MD 800 [facility] Shantel Cooper [address] [address] 08/27/2024 1:00 PM EDT Clinical Support [facility] [address] [place] [address] 08/27/2024 2:30 PM EDT Appointment [facility] [address] [place] [address] 10/19/2024 11:30 AM EDT Office Visit [facility] [address] [place] [address] Kym Romero R, WET MILLING WHEEL OPERATOR [address] [facility] [address] [place] [address] 11/24/2024 11:00 AM EDT Office Visit [facility] [address] [place] [address] Adal Franklin MD [address] [facility] [address] [place] [address] 12/15/2024 1:00 PM EDT Office Visit [facility] [address] [place] [address] Efren Fallon MD [address] [employer] [address] [place] [address] 12/29/2024 9:30 AM EDT Clinical Support [facility] [address] [facility], [address] [place] [address] 12/29/2024 10:00 AM EDT Office Visit [facility] [address] [facility] [address] [place] [address] Carlito Mccartney MD [address] [facility] [address] [place] [address] 03/23/2025 10:40 AM EST Office Visit [facility] [address] [facility] [address] [place] [address] Arabella Romero, WET MILLING WHEEL OPERATOR [address] [place] [address] documented as of this encounter Procedures Procedure Name Priority Date/Time Associated Diagnosis Comments PHOSPHORUS, PLASMA Routine 06/16/2024 9: 54 AM EDT Malignant tumor of right ureter (CMS/HCC) MAGNESIUM, PLASMA Routine 06/16/2024 9:5 4 AM EDT Malignant tumor of right ureter (CMS/HCC) documented in this encounter Results * (ABNORMAL) Magnesium (06/16/2024 9:54 AM EDT) Magnesium, Plasma 1.7(L) 1.9 - 2.4 mg/dL 06/16/2024 11:04 AM EDT [facility] Blood Venous blood specimen / Unknown (Central Line) Existing Catheter / Unknown 06/16/2024 9:54 AM EDT 06/16/2024 10:21 AM EDT [place] WET MILLING WHEEL OPERATOR LAB BLOOD ORDERABLES Final R esult Performing Organization Address City/[facility]/ZIP Co de Phone Number [facility] [address] [place] [address] * (ABNORMAL) Phosphorus (06/16/2024 9:54 AM EDT) Phosphorus, Plasma 5.5(H) 2.5 - 4.5 mg/dL 06/16/2024 11:04 AM EDT [facility] Blood Venous blood specimen / Unknown (Central Line) Existing Catheter / Unknown 06/16/2024 9:54 AM EDT 06/16/2024 10:21 AM EDT [place] [employer] WET MILLING WHEEL OPERATOR LAB BLOOD ORDERABLES Final R esult [facility] [address] [place] [address] documented in this encounter Visit Diagnoses Diagnosis Malignant tumor of right ureter (CMS/HCC) documented in this encounter Additional Health Concerns Assessment Noted Time PHQ-9 Depression Total Score: 0 03/19/19 25 8:50 AM EST A fall risk assessment has been complete d for the patient 06/16/2024 10:56 AM EDT A Body Mass Index follow-up plan has been documented for the patient 05/27/2024 1:13 PM EDT documented as of this encounter Care Teams It Infrastructure Consultant Relationship Specialty Start Date End Date Efren Roy DO [address] [place], [place] [id number] PCP - General 03/04/23 Efren Roy DO [address] [place] [address] Pain Medicine 01/03/23 Rosa Maria Beltran APRN [address] [place] [address] [address] [place] [address] Nurse Practitioner Family Medicine 07/21/23 Bobby Vazquez MD 800 [facility] [address] [place] [address] Consulting Physician Medical Oncology 09/17/23 Cally Henderson PA [address] [facility] [address] [place] [address] Physician Schedule Clerk Urology 09/17/23 documented as of this encounter
--- OUTSIDE RECORDS SUMMARY | 2024-06-16 10:30 | XMS_ITS | Encounter Summary ---
Author Organization [facility] Address [address] [place] [address] Care Team Providers Care Upkeep Worker Name Role Phone Kirill Efren Parsons Unavailable [phone] Efren Roy DO Primary Care Provider [phone] Rosa Maria Beltran APRN Unavailable [phone] Bobby Vazquez MD Unavailable Cally Henderson Unavailable [phone] Reason for Referral * Imaging (Routine) - Closed Specialty Diagnoses / Procedures Referred By Contac t Referred To Contact Radiology Diagnoses Malignant tumor of right ureter (CMS/HCC) Procedures CT Abdomen Pelvis w IV Contrast Bobby Vazquez MD [address] [facility] [address] [place] [address] Phone: tel: fax: Referral ID Status Reason Start Date Expiration Date Visits Re quested Visits Authorized [id number] Closed 06/16/2024 12/16/2025 1 1 * Imaging (Routine) - Closed Specialty Diagnoses / Procedures Referred By Contac t Referred To Contact Radiology Diagnoses Malignant tumor of right ureter (CMS/HCC) Procedures CT Chest w IV Contrast Bobby Vazquez MD [address] [address] Phone: tel: fax: Referral ID Status Reason Start Date Expiration Date Visits Re quested Visits Authorized [id number] Closed 06/16/2024 12/16/2025 1 1 Reason for Visit * Reason Comments Follow-up Bladder Cancer Encounter Details Date Type Department Care Team (Late st Contact Info) Description 06/16/2024 10:30 AM EDT Office Visit [facility] Clinic [address] [place] [address] Sara Tesfaye, JYOTSNA 800 [facility] Shantel Barrerayaneli Garcia [address] [address] 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) Social History Tobacco Use Types [...] place to sleep or slept in a intermediate (including now)? No 02/28/2023 PHQ-9 Answer Date [...] any time in the past 12 m [facility], were you homeless or living in a intermediate (including now)? No 05/27/2024 CAGE ASSESSMENT Answer [...] drink first t tianna in the morning (EYE-WEB METHODS DEVELOPER) to steady your nerves or to get [...] Sign Reading Time Taken Comments Blood Pressure 100/66 06/16/2024 9:40 AM EDT Pulse 87 06/16/2024 9:40 AM EDT Temperature 36.5 C (97.7 F) 06/16/2024 9:40 AM EDT Respiratory Rate 16 06/16/2024 9:40 AM EDT Oxygen Saturation 96% 06/16/2024 9:40 AM EDT Inhaled Oxygen Concentration - - Weight 81.8 kg (180 lb 5.4 oz) 06/16/2024 9:40 A M EDT Height 177.8 cm (5' 10 ) 06/16/2024 9:40 AM EDT Body Mass Index 25.88 06/16/2024 9:40 AM EDT documented in this encounter Functional Status * Over the past 2 weeks, how often have you been bothered by any of the following problems? Question Answer Date of Assessment Author Little interest or pleasure in doing things Not at all 06/16/2024 9:44 AM EDT Mari Newell Feeling down, depressed, or hopeless Not at all 06/16/2024 9:44 AM EDT Mari Newell Patient Health Questionnaire -2 Score 0 06/16/2024 9:44 AM EDT Mari Newell * Question Answer Date of Assessment Author Thoughts that you would be better off or hurting yourself in some way Not at all 06/16/2024 9:44 AM EDT Trini Newell * Calculated C-SSRS Risk Score (Lifetime/Recent) Answer Date of Assessment Author No Risk Indicated 06/16/2024 10:56 AM EDT Jennie Sheriff * Question Answer Date of Assessment Author 1. Wish to be (Past 1 Month) No 025 10:56 AM EDT Jennie Mott 2. Non-Specific Active Suici katie Thoughts (Past 1 Month) No 06/16/2024 10:56 AM EDT Fanta Mott 6. Suicidal Behavior (Lifetime) No 5 10:56 AM EDT Jennie Mott documented as of this encounter Miscellaneous Notes * Progress Notes - Sara Tesfaye, HIDE AND SKIN PROCESSING WORKER - 06/16/2024 10:30 AM EDT Medical Oncology Clinic Note Patient Name: Adrián Goode Date of : 1965 59 y.o. Referring Physician:No referring provider defined for this encounter. Encounter Date: 06/17/2024 Interval History: The patient presents today for follow up and continuation of treatment. Here with his today. He is feeling pretty good today. He has a good appetite and drinking 5-6 mcdermott per day. He is changing his diet to decrease phosphorus. He gets fatigued quickly, has to rest more. He is using readers to see better but no blurred or double vision. He got fluids last week and he found it helpful with his energy, he would like to get fluids weekly at [facility]- locally. He denies N/V/D/C, edema, fever, chills, or hematuria. No other significant complications noted Oncology History: Oncology History Overview Note -12/10/22: He was seen by Dr. Lopez for his right flank pain for the past 6 weeks. He had a CT non-con showing right hydroureteronephrosis with transition point in the mid-distal ureter. -12/25/22: underwent right diagnostic ureteroscopy and ureteral biopsy. Path showed invasive high-grade urothelial carcinoma involving lamina propria. Negative for lymphovascular invasion. He also had right nephroureteral stent placed. - right distal ureter with right common iliac node >5cm with few additional smaller lymph nodes are observed throughout the right external iliac chain - his CrCl is >60 - discussed chemotherapy either ddMVAC vs. Cisplatin + gemcitabine - unfortunately, he is not a candidate for [id number] due to the size of his regional node - discussed risk and benefits with chemotherapy and its expected side effects - depending on the chemo response, he may nor may not be a surgical candidate - he decided to go with cisplatin + gemcitabine - He received total three cycles of cis and gem from 01/10/23 to 02/21/23. 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 Few additional smaller lymph nodes throughout the right external iliac chain, largest measuring 11mm. Mild urothelial thickening and enhancement within the distal right ureter consistent with the known urothelial carcinoma. Malignant tumor of right ureter (CMS/HCC) 01/03/2023 Initial Diagnosis Malignant tumor of right ureter (CMS/HCC) 01/10/2023 - 02/21/2023 Chemotherapy gemcitabine (Gemzar) 2,067.2 mg in sodium chloride 0.9 % 100 mL chemo IVPB, 1,000 mg/m2 = 2,067.2 mg, Intravenous, Once, 3 of 4 cycles Administration: 2,067.2 mg (01/10/2023), 2,067.2 mg (01/17/2023), 2,067.2 mg (01/31/2023), 2,067.2 mg (02/07/2023), 2,067.2 mg (02/21/2023) CISplatin (Platinol) 145 mg in sodium chloride 0.9 % 500 mL chemo IV, 70 mg/m2 = 145 mg, Intravenous, Once, 3 of 4 cycles Administration: 145 mg (01/10/2023), 145 mg (01/31/2023), 145 mg (02/21/2023) aprepitant (Cinvanti) 130 MG/18ML IV 130 mg, 130 mg, Intravenous, Once, 3 of 4 cycles Administration: 130 mg (01/10/2023), 130 mg (01/31/2023), 130 mg (02/21/2023) 03/26/2023 - 08/27/2023 Chemotherapy pembrolizumab (Keytruda) 200 mg in sodium chloride 0.9 % 100 mL chemo IVPB, 200 mg, Intravenous, Once, 8 of 12 cycles Administration: 200 mg (03/26/2023), 200 mg (04/16/2023), 200 mg (05/07/2023), 200 mg (05/28/2023), 200 mg (06/18/2023), 200 mg (07/09/2023), 200 mg (07/30/2023), 200 mg (08/20/2023) enfortumab vedotin-ejfv (Padcev) 110 mg in sodium chloride 0.9 % 100 mL chemo IVPB, 1.25 mg/kg = 110 mg, Intravenous, Once, 8 of 12 cycles Dose modification: 1 mg/kg (original dose 1.25 mg/kg, Cycle 3) Administration: 110 mg (03/26/2023), 110 mg (04/02/2023), 110 mg (04/16/2023), 85 mg (05/07/2023), 85 mg(05/14/2023), 85 mg (05/28/2023), 85 mg (06/04/2023), 85 mg (06/18/2023), 85 mg (06/25/2023), 85 mg (07/09/2023), 85 mg (07/16/2023), 110 mg (04/23/2023), 85 mg (07/30/2023), 85 mg (08/06/2023), 85 mg (08/20/2023), 85 mg (08/27/2023) 11/28/2023 - 04/16/2024 Research Study Participant [id number]: Arm 1: Sacituzumab govitecan weekly x 2 Every 21 Days Plan Provider: Bobby Vazquez MD Treatment goal: [No plan goal] Line of treatment: [No plan line of treatment] Associated studies: [facility] PATIENT Past Medical, Surgical, Family and Social History: Reviewed, and unchanged from most recent clinic visit or updated as indicated. Allergies and Adverse Drug Reactions: Enfortumab vedotin Medications: Reviewed Review of Systems: 14 pt review of systems performed and negative except as noted in HPI. Physical Exam: Visit Vitals BP 100/66 Pulse 87 Temp 36.5 ??C (97.7 ??F) Ht 1.778 m (5' 10 ) Wt 81.8 kg (180 lb 5.4 oz) SpO2 96% BMI 25.88 kg/m?? Wt Readings from Last 5 Encounters: 06/16/24 82.6 kg (182 lb 1.6 oz) 06/16/24 81.8 kg (180 lb 5.4 oz) 06/14/24 79.8 kg (175 lb 14.8 oz) 06/11/24 79.6 kg (175 lb 6.4 oz) 05/26/24 80.3 kg (177 lb) ECO General: Sitting/resting comfortably in chair, NAD HEENT: NCAT, PERRLA/EOMI, anicteric; no oral lesions Neck: Supple, no lymphadenopathy or JVD Heart: RRR, no MGR Lungs: CTAB; no rales, rhonchi or wheezes Abdomen: Soft, NTND, + BS, weight is stable Extremities: No edema, distal pulses intact Musculoskeletal: No focal tenderness or deformity Skin: No visible rashes or lesions Neuro: Grossly nonfocal; no localizing deficits of strength, sensation, or mentation Psychiatric: Normal mood and thought content LABS: Office Visit on 06/16/2024 Component Date Value Thyroid Stimulating Horm* 06/16/2024 6.11 (H) Glucose, Plasma 06/16/2024 90 BUN, Plasma 06/16/2024 7 (L) Creatinine, Plasma 06/16/2024 1.17 BUN/Creatinine Ratio 06/16/2024 6 Sodium, Plasma 06/16/2024 137 Potassium, Plasma 06/16/2024 4.4 Chloride, Plasma 06/16/2024 102 CO2, Plasma 06/16/2024 24 Anion Gap 06/16/2024 11 Total Calcium, Plasma 06/16/2024 9.5 Total Protein 06/16/2024 6.6 Albumin, Plasma 06/16/2024 3.6 AST, Plasma 06/16/2024 29 ALT, Plasma 06/16/2024 15 Alkaline Phosphatase, Pl* 06/16/2024 77 Total Bilirubin, Plasma 06/16/2024 <0.2 (L) eGFRcr 06/16/2024 71.4 WBC Count 06/16/2024 5.99 RBC Count 06/16/2024 3.82 (L) HGB 06/16/2024 10.0 (L) HCT 06/16/2024 31.4 (L) Platelet Count 06/16/2024 223 MCV 06/16/2024 82 MCH 06/16/2024 26.2 MCHC 06/16/2024 31.8 RDW 06/16/2024 15.4 (H) MPV 06/16/2024 9.3 nRBC 06/16/2024 0.0 Differential Type 06/16/2024 Automated Neutrophils % 06/16/2024 62 Lymphocytes % 06/16/2024 23 Monocytes % 06/16/2024 11 Eosinophils % 06/16/2024 3 Basophils % 06/16/2024 1 Immature Granulocytes % 06/16/2024 0 Neutrophils Absolute 06/16/2024 3.74 Lymphocytes Absolute 06/16/2024 1.36 Monocytes Absolute 06/16/2024 0.67 Eosinophils Absolute 06/16/2024 0.16 Basophils Absolute 06/16/2024 0.04 Immature Granulocytes Ab* 06/16/2024 0.02 Free T4, Plasma 06/16/2024 1.4 Clinical Support on 06/16/2024 Component Date Value Phosphorus, Plasma 06/16/2024 5.5 (H) Magnesium, Plasma 06/16/2024 1.7 (L) RADIOLOGY: No image results found. ASSESSMENT AND PLAN: Adrián Goode is a 59 y.o. male who initially presented with right flank pain and found to have right distal ureteral mass with regional nodes. #Stage IV Upper tract bladder cancer - Right distal ureter with right common iliac node >5cm with few additional smaller lymph nodes are observed throughout the right external iliac chain - his CrCl is >60 - discussed chemotherapy either ddMVAC vs. Cisplatin + gemcitabine - unfortunately, he is not a candidate for [id number] due to the size of his regional node - discussed risk and benefits with chemotherapy and its expected side effects - depending on the chemo response, he may nor may not be a surgical candidate - he decided to go with cisplatin + gemcitabine - He received total three cycles of cis and gem from 01/10/23 to 02/21/23. - had scans which unfortunately showed progression with interval enlargement and new retroperitoneal and pelvic lymph nodes - Discussed that he has now stage IV due to retroperitoneal nodes and the goal is not for cure unless he has a unremarkable response - Discussed pembrolizumab and enfortumab vedotin as a next line option and consent was obtained at last visit - CARIS results from 04/07/23; with benefit for pembrolizumab, high TMV 45, MSI high/dMMR, FGFR3 exon9 mutation - s/p stent exchange per Dr. Franklin on 05/02/23 - 05/26/2023 scans showed a mixed response. Given high TMB and MSI-H from CARIS, continue with pembro + EV - Currrently enrolled on [id number]: A Phase III Randomized Trial of Eribulin (NSC #790202) with or Without Gemcitabine Versus Standard of Care (Physician's Choice) for Treatment of Metastatic Urothelial Carcinoma Refractory to, or Ineligible for, Anti PD1/PDL1 Therapy 04/19/2024 - CT scan showed disease progression and the clinical trial drug is no longer working andhe will need to come off from the study - Given FGFR mutation positive, discussed erdafitinib as a next line therapy - Discussed the expected overall response rate of 40% with median survival around 12 months. Also discussed the potential side effects including but not limited to GI upset, hand-foot syndrome, hyperphosphatemia, nail hyperpigmentation, eye toxicity etc PLAN for 06/16/2024: - Continue Erdafitinib 8mg daily - Labs and PS reviewed and appropriate to proceed with today's treatment. Today: he got 1 liter NS and Magnesium replaced. - Previously, was scheduled to get 1 liter NS in CAT clinic. He can also pursue getting IVFs at [facility] closer to home. Consider scheduling IVFs for the days he follows up with us - Phosphorus today is 5.1-->>saw power driven brush maker who gave him foods to eat and supplement protein/renal drink with low phosphorus. - Of note, in hospital from 05/24-05/27 for progressive weakness and SOA and found to have CAP, CARLOS due to dehydration and hyperphosphatemia due to Erdafitinib. - Plan to Increase to 9 mg PO daily if serum phosphate level <9 mg/dL and there are no ocular disorders or no Grade >=2 adverse reactions but kept at 8 mg today 05/19/2024 due to Grade 1 elevation in LFTs - If no tolerable, consider reducing the dose to 6 mg - Seeing eye doctor on 07/19/2024-->>will need monthly follow up for 4 months (Erdafitinib) - RTC in 1 month to see Md/NICOLE with scans TSH elevated - TSH 6.11, Free T4 1.4- WNL - Taking Tirosint 125 mcg daily - Will cont to monitor, followed by Machine Operator Assistant Hyperphosphatemia - Phosphorus level 5.5 today, will continue on Erdafitinib 8mg and not change dose due to level of phosphorus - Will consider adding a phosphorus binder if level 7 or >, or having symptoms - Director Vaccine advised for him to use Nepro/Renal nutritional supplement and gave him a list of low phosphorus foods. The Nepro /Renal nutrition supplement is expensive and patient was given a carpenter list for it. The regular Boost drinks have too much phos. - Previously educated him on restrict phosphate intake to 600-800 mg/day (saw power driven brush maker) Time was spent on this encounter; including preparing to see the patient, which involved review/interpretation of diagnostics and reports; obtaining and/or reviewing separately obtained history; performing appropriate physical exam; ordering/scheduling medications, tests or procedures; communicating findings and counseling/educating the patient, family and/or caregiver; documentation in EMR; and care coordination. Attending physician previously developed plan of care, which I discussed with the patient, whom I saw independently. The patient verbalized understanding and agrees with plan. All questions answered to their satisfaction. Encouraged to call should other questions/concerns arise. The selection, dosing and administration of anti-cancer agents and the management of associated toxicities requires complex medical decision making and intensive monitoring for toxicity. Modifications of drug dose and schedule as well as the initiation of supportive care interventions are often necessary because of expected toxicities. This varies individually based on patient tolerability, priortreatments and comorbidities/risk status. Monitoring typically entails labs, imaging and/or other diagnostics, utilizing a healthcare delivery team experienced in the use of anticancer agents and themanagement of associated toxicities in patients with cancer. Sara Tesfaye APRN [facility] 1st floor [address] [facility], . * Progress Notes - Leticia Nails, PharmD - 06/16/2024 10:30 AM EDT Pharmacy Hematology/Oncology Treatment Note Adrián Goode is a 59 y.o. male with metastatic UTUC. Cancer Staging No matching staging information was found for the patient. Study Patient: Yes Treatment Plan reviewed for erdafitinib [x] Follow-Up Clinical Review for continuous oral therapy Patient History: 01/10/23: Will plan to start potentially neoadjuvant [place]/Cis. Creatinine is just below 60 ml/min today but ok with continuing today. Could consider split dose with C3 if worsens. 03/26/22: Unfortunately Mr. Goode has metastatic disease progression so will switch to EV + Pembro. 04/16/23: Mr. Goode presented to the ED after C1 with symptomatic anemia and was worked up by cardio-oncology for possible IO induced myocarditis; clinical suspicion is very low so will continue with combo treatment today. 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 He had a mild HSR to EV so added APAP/benadryl and extended infusion. 05/07/23: Mr. Goode has increasing CIPN so will drop EV to 1mg/kg. 07/09/23: OSH scans showed spots in lung which are questionable for metastatic disease; will get lungBx and if positive will likely refer to [facility]. Will continue EV + Pembro for now. 07/30/23: Lung bx was aborted due to resolution of the lesion. Will continue current treatment. 11/28/23: Patient begins treatment on [id number]: Arm 1: Sacituzumab govitecan weekly x2 every 21 days. He received education on this medication today in clinic. Labs were reviewed and are appropriate to proceed with therapy. 12/19/23: Mr. Goode reports experiencing diarrhea (~4 times/day) after his first cycle of Sacituzumab govitecan. He has not been routinely taking Imodium or Lomotil at home. Educated patient on proper administration of these medications and encouraged oral fluid intake. He will receive a 500 mL bolus in infusion today. Labs are appropriate to proceed with C2 of therapy. 12/26/23: Patient presented to infusion clinic for C2 D8 of therapy. He mentioned complaints of fatigue, rash, mucositis, and diarrhea after his D1 dose. The patient was assessed in infusion and deemed to have grade 3 fatigue. Sacituzumab govitecan was ultimately dose reduced to 75% of the originaldose to account for this toxicity. Dose adjustment were in line with study protocol parameters. Allother labs are appropriate to proceed with D8 of therapy today. 01/09/24: Mr. Goode is feeling much better today. His fatigue, nausea, and diarrhea has significantly improved. He was admitted on 12/28 for a UTI and ultimately discharged on levofloxacin that wascompleted yesterday (01/07). Calcium is slightly elevated today but otherwise appropriate to proceedwith Cycle 3 of therapy and will need to be reassessed by pharmacy satellite prior to Day 8 on 01/16/24. 01/28/24: Sacituzumab govitecan had it's FDA approval withdrawn due to lack of OS benefit in phase 3 trial and patients enrolled in S1937 are no longer eligible to use it as physician's choice; however, scans today demonstrate a favorable treatment response so will continue therapy. 03/19/24: Low blood pressure today with mild tachycardia, which patient attributes to being mildly dehydrated. Patient has PRN fluid order, will give 1L of NS today in infusion. Labs otherwise appropriate for patient to receive Sacituzumab today. Ok to continue on treatment. 04/09/24: Patient reports mild chronic back pain, for which NICOLE is enrolling him in the [employer] portal for future treatment. Labs otherwise ok to continue on Sacituzumab at this time. 04/28/24: Mr. Goode had scans that demonstrated progression of disease particularly in the lymph nodes. Dr. Vazquez met with patient via TeleHealth visit today. Will plan to transition to erdafitinibgiven FGFR mutation. 05/19/24: Mr. Goode has started erdafitinib and is tolerating well thus far. He reports thus far he has had no dry eyes/blurry vision or HFS. He notes he did have one episode of nausea, which was managed with home antiemetics, and he has ongoing constipation, which he manages with stool softeners. Phos level was <9 mg/dL today, but given new onset Grade 1 elevation of transaminases, will main tain erdafitinib at the 8 mg daily dose. Patient was referred to ophthalmology for monthly monitoring (for first 4 months). Will return in 4 weeks for repeat labs/phos level). 06/11/24: Patient seen in clinic by NICOLE. Reports having had 2 loose (but not watery) stools in the last 24 hours and continued fatigue. Otherwise is tolerating treatment well. Next planned ophthalmology treatment is planned for 06/19/24, patient aware to have follow up through August 2024. Labs meet parameters to continue on 8 mg dose. Today's Wt: 81.8 Dosing Wt: 80.4 kg Dosing Ht: 177.8 cm DosingBSA: 1.99 m2 Recent Labs: Lab Results Component Value Date WBC 5.99 06/16/2024 NEUTROABS 3.74 06/16/2024 HGB 10.0 (L) 06/16/2024 PLT 223 06/16/2024 Lab Results Component Value Date GLUCOSE 90 06/16/2024 NA 137 06/16/2024 CL 102 06/16/2024 K 4.4 06/16/2024 MG 1.7 (L) 06/16/2024 BUN 7 (L) 06/16/2024 CREATININE 1.17 06/16/2024 Lab Results Component Value Date AST 29 06/16/2024 ALT 15 06/16/2024 ALKPHOS 77 06/16/2024 BILITOT <0.2 (L) 06/16/2024 Lab Results Component Value Date PHOS 5.5 (H) 06/16/2024 Visit Vitals BP 100/66 Pulse 87 Temp 36.5 ??C (97.7 ??F) Resp 16 Other Relevant Monitoring: Next Generation Sequencing (Caris) 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 NTRK1/2/3 fusion not detected RET fusion not detected KRAS/NRAS/BRAF wt BRCA1/2 wt Treatment/Therapy Plan: Erdafitinib 8 mg by mouth daily [x] Maintained at 8 mg daily ([address]) d/t transaminitis Current Treatment Plan History: Erdafitinib: - Initiated April 2024 Rx information Rx sent to: [facility] Refills will be due: June 2024 Prior Treatment History: [place]/Cis Cycle 1: 01/10/23 Cycle 2: 01/31/23 Cycle 3: 02/21/23 EV + Pembro Cycle 1: 03/26, 04/02/23 Cycle 2: 04/16, 04/23/23 Cycle 3: 05/06, 05/14/23 Cycle 4: 05/27, 06/04/23 Cycle 5: 06/17, 06/25/23 Cycle 6: 07/08, 07/16/23 Cycle 7: 07/29, 08/06/23 Cycle 8: 08/19, 08/27/23 Sacituzumab govitecan ([id number]: Arm 1) Cycle 1: 11/28/23, 12/05/23 Cycle 2: 12/19/23, 12/26/23 (dose-reduced to 75% of original dose d/t fatigue) Cycle 3: 01/09/24, 01/16/24 Cycle 4: 01/27, 02/04/24 Cycle 5: 02/26, 03/05/24 Cycle 6: 03/19, 03/26/24 Cycle 7: 04/09, 04/16/24 Plan: Patient will return to clinic in 4 weeks. Will follow-up at that time. Pharmacist Attestation: Leticia Nails, PharmD Clinical Oncology Pharmacist documented in this encounter Plan of Treatment Upcoming Encounters Date Type Department Care Team (Late st Contact Info) Description 08/27/2024 1:00 PM EDT Office Visit [facility] [address] [place] [address] Bobby Vazquez MD 800 [facility] Sh[address] [address] 08/27/2024 1:00 PM EDT Clinical Support [facility] [address] [place] [address] 08/27/2024 2:30 PM EDT Appointment [facility] [address] [place] [address] 10/19/2024 11:30 AM EDT Office Visit [facility] [address] [place] [id number] Kym Romero, HIDE AND SKIN PROCESSING WORKER 800 [facility] [address] [place] [phone] 11/24/2024 11:00 AM EDT Office Visit [facility] [address] [place] [phone] Adal Franklin MD [address] [place] [address] 12/15/2024 1:00 PM EDT Office Visit [facility] [address] [place] [address] Efren Fallon MD [address] [facility] [address] [place] [address] 12/29/2024 9:30 AM EDT Clinical Support [facility] [address] [facility] [place] [id number] 12/29/2024 10:00 AM EDT Office Visit [facility] [address] [facility] [place] [phone] Carlito Mccartney MD [address] [facility] [address] [place] [address] 03/23/2025 10:40 AM EST Office Visit [facility] [address] [facility] [place] [address] Arabella Romero, [employer] AND [employer] PROCESSING WORKER [address] [place] [address] documented as of this encounter Procedures Procedure Name Priority Date/Time Associated Diagnosis Comments TSH REFLEX FT4 Routine 06/16/2024 9:54 AM EDT Malignant tumor of right ureter (CMS/HCC) CBC WITH AUTO DIFFERENTIAL Routine 06/16/2024 9:54 AM EDT Malignant tumor of right ureter (CMS/HCC) FREE T4, PLASMA Routine 06/16/2024 9:54 AM EDT Malignant tumor of right ureter (CMS/HCC) COMPREHENSIVE METABOLIC PANEL, PLASMA Routine 06/16/2024 9:54 AM EDT Malignant tumor of right ureter (CMS/HCC) documented in this encounter Results * CT Abdomen Pelvis w IV Contrast (07/14/2024 9:15 AM EDT) Anatomical Region Laterality Modality Abdomen, Pelvis Computed Tomogra phy Impressions 07/14/2024 10:14 AM EDT Chest: Interval increase in size of the left upper pretracheal lymph node in comparison to prior. Otherwise, no new site of disease in the chest. Abdomen/Pelvis: 1. A right nephroureteral stent is in place with associated urothelial thickening and enhancement of the right renal pelvis and proximal ureter and mild adjacent periureteric stranding similar to prior. No new renal or urothelial lesion identified. 2. Multiple new and increase in size the retroperitoneal and pelvic lymph nodes, as described above, concerning for metastatic lymphadenopathy. CRITICAL RESULT: No. COMMUNICATION: Per this written report. Drafted by Abbie Guido MD on 07/14/2024 9:41 AM Final report signed by Abbie Guido MD on 07/14/2024 10:14 AM Narrative 07/14/2024 10:14 AM EDT CLINICAL INDICATION: Bladder cancer, invasive, assess treatment response TECHNIQUE: Multiple axial CT images were obtained from thoracic inlet through pubic symphysis following administration of IV contrast, Omnipaque 300, 100 mL. Reformatted images in the coronal and sagittal planes were generated from the axial data set to facilitate diagnostic accuracy. Total DLP (Dose-Length Product): 993.50 mGy.cm (accession [id number]), 993.50 mGy.cm (accession [id number]). Please note: The reported value represents the total of one or more individual components during the CT acquisition on this date and at this time, and as such, the same value may appear in more than one CT report depending on the interpreting/reporting physicians. COMPARISON: None. FINDINGS: Chest: Lymph Nodes and Mediastinum: Interval increase in size of the left upper pretracheal lymph nodes currently measuring about 2.0 cm (series 4, image 87), in comparison to 1.2 cm previously. No mediastinal mass lesions. Cardiovascular: The heart is normal in caliber. No pericardial effusion. Thoracic great vessels are patent. Lungs and Pleura: The central airways are patent. No suspicious or sizable lung nodules to suggest metastatic disease. Bibasal atelectatic changes. No pleural effusions or suspicious thickening. Musculoskeletal and Body Wall: No clearly aggressive bone lesions. Abdomen/Pelvis: Liver, Gallbladder, Biliary Tract: No suspicious liver lesion. Unremarkable gallbladder. No bile duct dilatation. Spleen: Unremarkable. Pancreas: No suspicious pancreatic lesion. No duct dilatation. Adrenal Glands: Unremarkable. Kidneys: A right nephroureteral stent is in place with associated urothelial thickening and in enhancement of the right renal pelvis and proximal ureter with mild adjacent periureteric stranding similar to prior. Stable all fullness of the right pelvicalyceal system. No well-defined nodule or mass of the right renal collecting system. No suspicious cortical lesion of the right kidney. No suspicious left renal mass. No left hydronephrosis and no left urothelial thickening. Lymph Nodes: Interval increase in size and new retroperitoneal lymphadenopathy along the periaortic, pericaval and aortocaval region, for example aortocaval lymph node measuring about 18 mm (series 3, image 116), previously measured about 13 mm, new aortocaval and pericaval lymph nodes measuring up to 14 mm (series 3, image 137). Interval increase in size and multiple new lymph nodes in the pelvis along the common iliac, internal and external lymph node chains, for example left external iliac lymph node measuring about 3.1 cm (series 3, image 234) is, previously measured about 1.7 cm, right external iliac lymph node measuring about 3.0 cm (series 3, image 247), previously measured about 2.6 cm. Right internal iliac lymph node measuring about 1.6 cm (series 3, image 253), new from prior. Interval increase in size of the inguinal lymph nodes measuring about 1.3 cm, previously measured about 0.7 cm (series 3, image 291). Vasculature: The aortoiliac vasculature is normal in caliber and patent throughout demonstrating mild to moderate atherosclerotic changes. GI Tract/Mesentery/Peritoneum: The large and small bowel appear normal in caliber. No evidence of inflammatory change. No large suspicious peritoneal/mesenteric findings. Mild thickening of the peritoneal reflections in the lower abdomen and pelvis. Pelvic Viscera: Grossly similar mild wall thickening at the posterior bladder wall (series 3, image 269). Stable enlarged pelvic lymph nodes as described above. Free Fluid: No free fluid in the abdomen or pelvis. Musculoskeletal and Body Wall: No clearly aggressive bone lesion. Procedure Note Abbie Guido MD - 07/14/2024 CLINICAL INDICATION: Bladder cancer, invasive, assess treatment response TECHNIQUE: Multiple axial CT images were obtained from thoracic inlet through pubicsymphysis following administration of IV contrast, Omnipaque 300, 100 mL.Reformatted images in the coronal and sagittal planes were generated fromthe axial data set to facilitate diagnostic accuracy. Total DLP (Dose-Length Product): 993.50 mGy.cm (accession [id number]),993.50 mGy.cm (accession [id number]). Please note: The reported valuerepresents the total of one or more individual components during the CTacquisition on this date and at this time, and as such, the same value mayappear in more than one CT report depending on the interpreting/reportingphysicians. COMPARISON: None. FINDINGS: Chest: Lymph Nodes and Mediastinum: Interval increase in size of the left upperpretracheal lymph nodes currently measuring about 2.0 cm (series 4, image87), in comparison to 1.2 cm previously. No mediastinal mass lesions. Cardiovascular: The heart is normal in caliber. No pericardial effusion.Thoracic great vessels are patent. Lungs and Pleura: The central airways are patent. No suspicious or sizablelung nodules to suggest metastatic disease. Bibasal atelectatic changes.No pleural effusions or suspicious thickening. Musculoskeletal and Body Wall: No clearly aggressive bone lesions. Abdomen/Pelvis: Liver, Gallbladder, Biliary Tract: No suspicious liver lesion.Unremarkable gallbladder. No bile duct dilatation. Spleen: Unremarkable. Pancreas: No suspicious pancreatic lesion. No duct dilatation. Adrenal Glands: Unremarkable. Kidneys: A right nephroureteral stent is in place with associatedurothelial thickening and in enhancement of the right renal pelvis andproximal ureter with mild adjacent periureteric stranding similar toprior. Stable all fullness of the right pelvicalyceal system. Myrna-defined nodule or mass of the right renal collecting system. Nosuspicious cortical lesion of the right kidney. No suspicious left renalmass. No left hydronephrosis and no left urothelial thickening. Lymph Nodes: Interval increase in size and new retroperitoneallymphadenopathy along the periaortic, pericaval and aortocaval region, forexample aortocaval lymph node measuring about 18 mm (series 3, image 116),previously measured about 13 mm, new aortocaval and pericaval lymph nodesmeasuring up to 14 mm (series 3, image 137). Interval increase in size andmultiple new lymph nodes in the pelvis along the common iliac, internaland external lymph node chains, for example left external iliac lymph nodemeasuring about 3.1 cm (series 3, image 234) is, previously measured about1.7 cm, right external iliac lymph node measuring about 3.0 cm (series 3,image 247), previously measured about 2.6 cm. Right internal iliac lymphnode measuring about 1.6 cm (series 3, image 253), new from prior.Interval increase in size of the inguinal lymph nodes measuring about 1.3cm, previously measured about 0.7 cm (series 3, image 291). Vasculature: The aortoiliac vasculature is normal in caliber and patentthroughout demonstrating mild to moderate atherosclerotic changes. GI Tract/Mesentery/Peritoneum: The large and small bowel appear normal incaliber. No evidence of inflammatory change. No large suspiciousperitoneal/mesenteric findings. Mild thickening of the peritonealreflections in the lower abdomen and pelvis. Pelvic Viscera: Grossly similar mild wall thickening at the posteriorbladder wall (series 3, image 269). Stable enlarged pelvic lymph nodes asdescribed above. Free Fluid: No free fluid in the abdomen or pelvis. Musculoskeletal and Body Wall: No clearly aggressive bone lesion. IMPRESSION: Chest: Interval increase in size of the left upper pretracheal lymph nodein comparison to prior. Otherwise, no new site of disease in the chest. Abdomen/Pelvis: 1. A right nephroureteral stent is in place with associated urothelialthickening and enhancement of the right renal pelvis and proximal ureterand mild adjacent periureteric stranding similar to prior. No new renalor urothelial lesion identified. 2. Multiple new and increase in size the retroperitoneal and pelvic lymphnodes, as described above, concerning for metastatic lymphadenopathy. CRITICAL RESULT: No. COMMUNICATION: Per this written report. Drafted by Abbie Guido MD on 07/14/2024 9:41 AM Final report signed by Abbie Guido MD on 07/14/2024 10:14 AM Bobby Vazquez MD IMG CT PROCEDURES Final Result * CT Chest w IV Contrast (07/14/2024 9:15 AM EDT) Anatomical Region Laterality Modality Chest Computed Tomogra phy Impressions 07/14/2024 10:14 AM EDT Chest: Interval increase in size of the left upper pretracheal lymph node in comparison to prior. Otherwise, no new site of disease in the chest. Abdomen/Pelvis: 1. A right nephroureteral stent is in place with associated urothelial thickening and enhancement of the right renal pelvis and proximal ureter and mild adjacent periureteric stranding similar to prior. No new renal or urothelial lesion identified. 2. Multiple new and increase in size the retroperitoneal and pelvic lymph nodes, as described above, concerning for metastatic lymphadenopathy. CRITICAL RESULT: No. COMMUNICATION: Per this written report. Drafted by Abbie Guido MD on 07/14/2024 9:41 AM Final report signed by Abbie Guido MD on 07/14/2024 10:14 AM Narrative 07/14/2024 10:14 AM EDT CLINICAL INDICATION: Bladder cancer, invasive, assess treatment response TECHNIQUE: Multiple axial CT images were obtained from thoracic inlet through pubic symphysis following administration of IV contrast, Omnipaque 300, 100 mL. Reformatted images in the coronal and sagittal planes were generated from the axial data set to facilitate diagnostic accuracy. Total DLP (Dose-Length Product): 993.50 mGy.cm (accession [id number]), 993.50 mGy.cm (accession [id number]). Please note: The reported value represents the total of one or more individual components during the CT acquisition on this date and at this time, and as such, the same value may appear in more than one CT report depending on the interpreting/reporting physicians. COMPARISON: None. FINDINGS: Chest: Lymph Nodes and Mediastinum: Interval increase in size of the left upper pretracheal lymph nodes currently measuring about 2.0 cm (series 4, image 87), in comparison to 1.2 cm previously. No mediastinal mass lesions. Cardiovascular: The heart is normal in caliber. No pericardial effusion. Thoracic great vessels are patent. Lungs and Pleura: The central airways are patent. No suspicious or sizable lung nodules to suggest metastatic disease. Bibasal atelectatic changes. No pleural effusions or suspicious thickening. Musculoskeletal and Body Wall: No clearly aggressive bone lesions. Abdomen/Pelvis: Liver, Gallbladder, Biliary Tract: No suspicious liver lesion. Unremarkable gallbladder. No bile duct dilatation. Spleen: Unremarkable. Pancreas: No suspicious pancreatic lesion. No duct dilatation. Adrenal Glands: Unremarkable. Kidneys: A right nephroureteral stent is in place with associated urothelial thickening and in enhancement of the right renal pelvis and proximal ureter with mild adjacent periureteric stranding similar to prior. Stable all fullness of the right pelvicalyceal system. No well-defined nodule or mass of the right renal collecting system. No suspicious cortical lesion of the right kidney. No suspicious left renal mass. No left hydronephrosis and no left urothelial thickening. Lymph Nodes: Interval increase in size and new retroperitoneal lymphadenopathy along the periaortic, pericaval and aortocaval region, for example aortocaval lymph node measuring about 18 mm (series 3, image 116), previously measured about 13 mm, new aortocaval and pericaval lymph nodes measuring up to 14 mm (series 3, image 137). Interval increase in size and multiple new lymph nodes in the pelvis along the common iliac, internal and external lymph node chains, for example left external iliac lymph node measuring about 3.1 cm (series 3, image 234) is, previously measured about 1.7 cm, right external iliac lymph node measuring about 3.0 cm (series 3, image 247), previously measured about 2.6 cm. Right internal iliac lymph node measuring about 1.6 cm (series 3, image 253), new from prior. Interval increase in size of the inguinal lymph nodes measuring about 1.3 cm, previously measured about 0.7 cm (series 3, image 291). Vasculature: The aortoiliac vasculature is normal in caliber and patent throughout demonstrating mild to moderate atherosclerotic changes. GI Tract/Mesentery/Peritoneum: The large and small bowel appear normal in caliber. No evidence of inflammatory change. No large suspicious peritoneal/mesenteric findings. Mild thickening of the peritoneal reflections in the lower abdomen and pelvis. Pelvic Viscera: Grossly similar mild wall thickening at the posterior bladder wall (series 3, image 269). Stable enlarged pelvic lymph nodes as described above. Free Fluid: No free fluid in the abdomen or pelvis. Musculoskeletal and Body Wall: No clearly aggressive bone lesion. Procedure Note Abbie Guido MD - 07/14/2024 CLINICAL INDICATION: Bladder cancer, invasive, assess treatment response TECHNIQUE: Multiple axial CT images were obtained from thoracic inlet through pubicsymphysis following administration of IV contrast, Omnipaque 300, 100 mL.Reformatted images in the coronal and sagittal planes were generated fromthe axial data set to facilitate diagnostic accuracy. Total DLP (Dose-Length Product): 993.50 mGy.cm (accession [id number]),993.50 mGy.cm (accession [id number]). Please note: The reported valuerepresents the total of one or more individual components during the CTacquisition on this date and at this time, and as such, the same value mayappear in more than one CT report depending on the interpreting/reportingphysicians. COMPARISON: None. FINDINGS: Chest: Lymph Nodes and Mediastinum: Interval increase in size of the left upperpretracheal lymph nodes currently measuring about 2.0 cm (series 4, image87), in comparison to 1.2 cm previously. No mediastinal mass lesions. Cardiovascular: The heart is normal in caliber. No pericardial effusion.Thoracic great vessels are patent. Lungs and Pleura: The central airways are patent. No suspicious or sizablelung nodules to suggest metastatic disease. Bibasal atelectatic changes.No pleural effusions or suspicious thickening. Musculoskeletal and Body Wall: No clearly aggressive bone lesions. Abdomen/Pelvis: Liver, Gallbladder, Biliary Tract: No suspicious liver lesion.Unremarkable gallbladder. No bile duct dilatation. Spleen: Unremarkable. Pancreas: No suspicious pancreatic lesion. No duct dilatation. Adrenal Glands: Unremarkable. Kidneys: A right nephroureteral stent is in place with associatedurothelial thickening and in enhancement of the right renal pelvis andproximal ureter with mild adjacent periureteric stranding similar toprior. Stable all fullness of the right pelvicalyceal system. Myrna-defined nodule or mass of the right renal collecting system. Nosuspicious cortical lesion of the right kidney. No suspicious left renalmass. No left hydronephrosis and no left urothelial thickening. Lymph Nodes: Interval increase in size and new retroperitoneallymphadenopathy along the periaortic, pericaval and aortocaval region, forexample aortocaval lymph node measuring about 18 mm (series 3, image 116),previously measured about 13 mm, new aortocaval and pericaval lymph nodesmeasuring up to 14 mm (series 3, image 137). Interval increase in size andmultiple new lymph nodes in the pelvis along the common iliac, internaland external lymph node chains, for example left external iliac lymph nodemeasuring about 3.1 cm (series 3, image 234) is, previously measured about1.7 cm, right external iliac lymph node measuring about 3.0 cm (series 3,image 247), previously measured about 2.6 cm. Right internal iliac lymphnode measuring about 1.6 cm (series 3, image 253), new from prior.Interval increase in size of the inguinal lymph nodes measuring about 1.3cm, previously measured about 0.7 cm (series 3, image 291). Vasculature: The aortoiliac vasculature is normal in caliber and patentthroughout demonstrating mild to moderate atherosclerotic changes. GI Tract/Mesentery/Peritoneum: The large and small bowel appear normal incaliber. No evidence of inflammatory change. No large suspiciousperitoneal/mesenteric findings. Mild thickening of the peritonealreflections in the lower abdomen and pelvis. Pelvic Viscera: Grossly similar mild wall thickening at the posteriorbladder wall (series 3, image 269). Stable enlarged pelvic lymph nodes asdescribed above. Free Fluid: No free fluid in the abdomen or pelvis. Musculoskeletal and Body Wall: No clearly aggressive bone lesion. IMPRESSION: Chest: Interval increase in size of the left upper pretracheal lymph nodein comparison to prior. Otherwise, no new site of disease in the chest. Abdomen/Pelvis: 1. A right nephroureteral stent is in place with associated urothelialthickening and enhancement of the right renal pelvis and proximal ureterand mild adjacent periureteric stranding similar to prior. No new renalor urothelial lesion identified. 2. Multiple new and increase in size the retroperitoneal and pelvic lymphnodes, as described above, concerning for metastatic lymphadenopathy. CRITICAL RESULT: No. COMMUNICATION: Per this written report. Drafted by Abbie Guido MD on 07/14/2024 9:41 AM Final report signed by Abbie Guido MD on 07/14/2024 10:14 AM us Bobby Vazquez MD IMG CT PROCEDURES Final Result * Free T4, Plasma (06/16/2024 9:54 AM EDT) Free T4, Plasma 1.4 0.8 - 1.7 ng/dL 06/16/2024 11:48 AM EDT [facility] Blood Venous blood specimen / Unknown (Central Line) Existing Catheter / Unknown 06/16/2024 9:54 AM EDT 06/16/2024 10:21 AM EDT us Bobby Vazquez MD LAB BLOOD ORDERABLES Final Resul t Performing Organization Address City/[facility] Co de Phone Number [facility] [address] [place] [address] * (ABNORMAL) Phosphorus (06/16/2024 9:54 AM EDT) Phosphorus, Plasma 5.5(H) 2.5 - 4.5 mg/dL 06/16/2024 11:04 AM EDT [facility] Blood Venous blood specimen / Unknown (Central Line) Existing Catheter / Unknown 06/16/2024 9:54 AM EDT 06/16/2024 10:21 AM EDT Sara Tesfaye H[employer] AND [employer] PROCESSING WORKER LAB BLOOD ORDERABLES Final R esult Performing Organization Address City/[facility]/ZIP Co de Phone Number [facility] [address] [place] [address] * (ABNORMAL) Magnesium (06/16/2024 9:54 AM EDT) Magnesium, Plasma 1.7(L) 1.9 - 2.4 mg/dL 06/16/2024 11:04 AM EDT [facility] Blood Venous blood specimen / Unknown (Central Line) Existing Catheter / Unknown 06/16/2024 9:54 AM EDT 06/16/2024 10:21 AM EDT us Sara Tesfaye APRN LAB BLOOD ORDERABLES Final R esult Performing Organization Address City/[facility]/ZIP Co de Phone Number [facility] [address] [place] [address] * (ABNORMAL) TSH Reflex FT4 (06/16/2024 9:54 AM EDT) Thyroid Stimulating Hormone, Plasma 6.11(H) 0.40 - 4.20 uIU/mL 06/16/2024 11:04 AM EDT [facility] Blood Venous blood specimen / Unknown (Central Line) Existing Catheter / Unknown 06/16/2024 9:54 AM EDT 06/16/2024 10:21 AM EDT us Bobby Vazquez MD LAB BLOOD ORDERABLES Final Resul t Performing Organization Address City/[facility]/ZIP Co de Phone Number [facility] [address] [place] [address] * (ABNORMAL) Comprehensive Metabolic Panel, Plasma (06/16/2024 9:54 AM EDT) Glucose, Plasma 90 74 - 99 mg/dL 06/16/2024 11:04 AM EDT [facility] BUN, Plasma 7(L) 8 - 23 mg/dL 06/16/2024 11:04 AM EDT [facility] Creatinine, Plasma 1.17 0.70 - 1.20 mg/dL 06/16/2024 11:04 AM EDT [facility] BUN/Creatinine Ratio 6 06/16/2024 11:04 AM EDT [facility] Sodium, Plasma 137 136 - 145 mmol/L 06/16/2024 11:04 AM EDT [facility] Potassium, Plasma 4.4 3.6 - 4.9 mmol/L 06/16/2024 11:04 AM EDT [facility] Chloride, Plasma 102 97 - 107 mmol/L 06/16/2024 11:04 AM EDT [facility] CO2, Plasma 24 22 - 29 mmol/L 06/16/2024 11:04 AM EDT [facility] Anion Gap 11 6 - 16 mmol/L 06/16/2024 11:04 AM EDT [facility] Total Calcium, Plasma 9.5 8.9 - 10.2 mg/dL 06/16/2024 11:04 AM EDT [facility] Total Protein 6.6 6.3 - 7.9 g/dL 06/16/2024 11:04 AM EDT [facility] Albumin, Plasma 3.6 3.5 - 5.2 g/dL 06/16/2024 11:04 AM EDT [facility] AST, Plasma 29 10 - 50 U/L 06/16/2024 11:04 AM EDT [facility] ALT, Plasma 15 10 - 50 U/L 06/16/2024 11:04 AM EDT [facility] Alkaline Phosphatase, Plasma 77 40 - 115 U/L 06/16/2024 11:04 AM EDT [facility] Total Bilirubin, Plasma <0.2(L) 0.2 - 1.1 mg/dL 06/16/2024 11:04 AM EDT [facility] eGFRcr 71.4 mL/min/1.7 3m*2 06/16/2024 11:04 AM EDT [facility] Comment:Reported eGFRcr in m L/min/1.73m2 is based the CKD-EPI 2020 equation that does not use a race coefficient. Blood Venous blood specimen / Unknown (Central Line) Existing Catheter / Unknown 06/16/2024 9:54 AM EDT 06/16/2024 10:21 AM EDT us Bobby Vazquez MD LAB BLOOD ORDERABLES Final Resul t [facility] [address] [place] [address] * (ABNORMAL) CBC and Differential (06/16/2024 9:54 AM EDT) WBC Count 5.99 3.70 - 10.30 10*3/uL LAB HEMATOLOGY METHOD 06/16/2024 10:21 AM EDT [facility] RBC Count 3.82(L) 4.60 - 6.10 10*6/uL LAB HEMATOLOGY METHOD 06/16/2024 10:21 AM EDT [facility] HGB 10.0(L) 13.7 - 17.5 g/dL LAB HEMATOLOGY METHOD 06/16/2024 10:21 AM EDT [facility] HCT 31.4(L) 40.0 - 51.0 % LAB HEMATOLOGY METHOD 06/16/2024 10:21 AM EDT [facility] Platelet Count 223 155 - 369 10*3/uL LAB HEMATOLOGY METHOD 06/16/2024 10:21 AM EDT [facility] [facility] MCV 82 79 - 98 fL LAB HEMATOLOGY METHOD 06/16/2024 10:21 AM EDT [facility] MCH 26.2 26.0 - 32.0 pg LAB HEMATOLOGY METHOD 06/16/2024 10:21 AM EDT [facility] MCHC 31.8 30.7 - 35.5 g/dL LAB HEMATOLOGY METHOD 06/16/2024 10:21 AM EDT [facility] RDW 15.4(H) 11.5 - 14.5 % LAB HEMATOLOGY METHOD 06/16/2024 10:21 AM EDT [facility] MPV 9.3 8.8 - 12.5 fL LAB HEMATOLOGY METHOD 06/16/2024 10:21 AM EDT [facility] nRBC 0.0 <=0.0 per 100 WBCs LAB HEMATOLOGY METHOD 06/16/2024 10:21 AM EDT [facility] Differential Type Automated LAB HEMATOLOGY METHOD 06/16/2024 10:21 AM EDT [facility] Neutrophils % 62 % LAB HEMATOLOGY METHOD 06/16/2024 10:21 AM EDT [facility] Lymphocytes % 23 % LAB HEMATOLOGY METHOD 06/16/2024 10:21 AM EDT [facility] Monocytes % 11 % LAB HEMATOLOGY METHOD 06/16/2024 10:21 AM EDT [facility] Eosinophils % 3 % LAB HEMATOLOGY METHOD 06/16/2024 10:21 AM EDT [facility] Basophils % 1 % LAB HEMATOLOGY METHOD 06/16/2024 10:21 AM EDT [facility] Immature Granulocytes % 0 % LAB HEMATOLOGY METHOD 06/16/2024 10:21 AM EDT [facility] Neutrophils Absolute 3.74 1.60 - 6.10 10*3/uL LAB HEMATOLOGY METHOD 06/16/2024 10:21 AM EDT [facility] Lymphocytes Absolute 1.36 1.20 - 3.90 10*3/uL LAB HEMATOLOGY METHOD 06/16/2024 10:21 AM EDT [facility] Monocytes Absolute 0.67 0.30 - 0.90 10*3/uL LAB HEMATOLOGY METHOD 06/16/2024 10:21 AM EDT [facility] Eosinophils Absolute 0.16 0.00 - 0.50 10*3/uL LAB HEMATOLOGY METHOD 06/16/2024 10:21 AM EDT [facility] Basophils Absolute 0.04 0.00 - 0.10 10*3/uL LAB HEMATOLOGY METHOD 06/16/2024 10:21 AM EDT [facility] Immature Granulocytes Absolute 0.02 0.00 - 0.06 10*3/uL LAB HEMATOLOGY METHOD 06/16/2024 10:21 AM EDT [facility] Blood Venous blood specimen / Unknown (Central Line) Existing Catheter / Unknown 06/16/2024 9:54 AM EDT 06/16/2024 10:17 AM EDT Narrative [facility] - 06/16/2024 10:21 AM EDT Therapeutic decision making should be based on absolute values, rather than percentages. 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) documented [...] documented as of this encounter Care Teams Upkeep Worker Relationship Specialty Start Date End Date Efren Roy DO [address] [place] [address] PCP - General 03/04/23 Efren Roy DO [address] [place] [address] Pain Medicine 01/03/23 Rosa Maria Beltran APRN [address] [facility] [address] [place] [address] Nurse Practitioner Family Medicine 07/21/23 Bobby Vazquez MD [address] [facility] [address] [place] [address] Consulting Physician Medical Oncology 09/17/23 Cally Henderson PA [address] [place] [address] Physician Corn Shucker Urology 09/17/23 documented as of this encounter
--- OUTSIDE RECORDS SUMMARY | 2024-06-16 11:00 | XMS_ITS | Encounter Summary ---
Author Organization Healthcare Address [address] [place] [address] Care Team Providers Care Shelter Case Manager Name Role Phone Efren Roy DO Unavailable [phone] Efren Roy DO Primary Care Provider [phone] Rosa Maria Beltran APRN Unavailable [phone] Bobby Vazquez MD Unavailable Cally Henderson Unavailable Reason for Visit * Reason Comments Follow-up * Episode Based Medications (Routine) - Authorized Specialty Diagnoses / Procedures Referred By Contac t Referred To Contact Diagnoses Dehydration Procedures IV Fluid NO Electrolytes Bobby Vazquez MD [address] [facility] [address] [place] [address] Phone: tel: fax: [facility] [address] [place] [address] Phone: tel: fax: Referral ID Status Reason Start Date Expiration Date V isits Requested Visits Authorized [id number] Authorized 03/28/2023 09/26/2024 1 1 Encounter Details Date Type Department Care Team (Latest Contact Info) Description 06/16/2024 11:00 AM EDT Clinical Support [facility] [address] [facility], [address]nd [place] [address] Dehydration (Primary Dx); Malignant neoplasm of urinary bladder, unspecified site (CMS/HCC) Social History Tobacco Use Types Packs/Day [...] place to sleep or slept in a senior care (including now)? No 02/28/2023 PHQ-9 Answer Date [...] any time in the past 12 m onths, were you homeless or living in a senior care (including now)? 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 Suicidal Behavior (Lifetime) No 10:56 AM EDT Jennie Mott documented as of this encounter Miscellaneous Notes * Clinician Note - Joyce Cortes RN - 06/16/2024 11:00 AM EDT Pt ambulated to room without difficulty - present. Educated on IVF and patient stated understanding. Port accessed by prior clinic. GIN Cortes confirmed placement with flush and positive blood return. IVF bolus started. Electrolyte replacement given per protocol. JYOTSNA Tesfaye educated patient on low phosphorous foods. IVF completed and port flushed, positive blood return, heparin dwell, and de- accessed per protocol. Final VS and patient discharged. documented in this encounter Plan of Treatment Upcoming Encounters Date Type Department Care Team ([facility] Contact Info) Description 08/27/2024 1:00 PM EDT Office Visit [facility] [address] [place] [phone] Bobby Vazquez MD 800 [facility] [address] [place] [phone] 08/27/2024 1:00 PM EDT Clinical Support [facility] [address] [place] [phone] 08/27/2024 2:30 PM EDT Appointment [facility] [address] [place] [phone] 10/19/2024 11:30 AM EDT Office Visit [facility] [address] [place] [phone] Kym Romero, HR SYSTEMS ANALYST [address] [facility] [address] [place] [phone] 11/24/2024 11:00 AM EDT Office Visit [facility] [address] [place] [phone] Adal Franklin MD [address] [facility] [address] [place] [phone] 12/15/2024 1:00 PM EDT Office Visit [facility] [address] [place] [address] Efren Fallon MD [address] [facility] [address] [place] [address] 12/29/2024 9:30 AM EDT Clinical Support [facility] [address] [facility], [address] [place] [address] 12/29/2024 10:00 AM EDT Office Visit [facility] [address] [phone] Carlito Mccartney MD [address] [facility] [address] [place] [address] 03/23/2025 10:40 AM EST Office Visit [facility] [address] [phone] Arabella Romero, HR SYSTEMS ANALYST [address] [place] [address] documented as of this encounter Visit Diagnoses Diagnosis Dehydration- Primary Malignant neoplasm of urinary bladder, unspecified site (CMS/HCC) documented in this encounter Administered Medications Inactive Administered Medications - up to 3 most recent administrations Medication Order MAR Action Action Date Dose Rate Site magnesium oxide (Mag-Ox) tablet 400 mg 400 mg, Oral, Once as needed, 1 dose, Starting on Fri06/16/24 at 1118, Until Fri06/16/24 at 1125, Routine, For magnesium value 1.5 to 1.8 and patient having LESS THAN or EQUAL to 3 loose stools per dayIndications:Malignant neoplasm of urinary bladder, unspecified site (CMS/HCC) Given 06/16/2024 11:25 AM EDT 400 mg sodium chloride 0.9 % bolus 1,000 mL 1,000 mL, Intravenous, Once, 1 dose, On Fri06/16/24 at 1200, Administer over 60 Minutes, RoutineIndications:Dehydrat ion New Bag 06/16/2024 11:03 AM EDT 1,000 mL 1000 mL/hr documented in this encounter Additional Health Concerns Assessment Noted Time PHQ-9 Depression Total Score: 0 03/19/19 8:50 AM EST A fall risk assessment has been complete d for the patient 06/16/2024 10:56 AM EDT A Body Mass Index follow-up plan has been documented for the patient 05/27/2024 1:13 PM EDT documented as of this encounter Care Teams Shelter Case Manager Relationship Specialty Start Date End Date Efren Roy DO [address] [place], [place] [id number] PCP - General 03/04/23 Efren Roy JaquelineDO [address] [place], [place] [phone] Pain Medicine 01/03/23 Rosa Maria Beltran APRN [address] [facility] [address] [place] [phone] Nurse Practitioner Family Medicine 07/21/23 Bobby Vazquez MD 800 [facility] [address] [place] [address] Consulting Physician Medical Oncology 09/17/23 Cally Henderson PA [address] [place] [phone] Physician District Service Manager Urology 09/17/23 documented as of this encounter
--- OUTSIDE RECORDS SUMMARY | 2024-07-14 08:28 | XMS_ITS | Encounter Summary ---
Author Organization [facility] Address [address] [place] [address] Care Team Providers Care Engineer Process Name Role Phone Kirill Efren Parsons Unavailable [phone] Efren Roy DO Primary Care Provider [phone] Rosa Maria Beltran APRN Unavailable [phone] Bobby Vazquez MD Unavailable Cally Henderson Unavailable [phone] Reason for Referral * Imaging (Routine) - Closed Specialty Diagnoses / Procedures Referred By Contac t Referred To Contact Radiology Diagnoses Malignant tumor of right ureter (CMS/HCC) Procedures CT Abdomen Pelvis w IV Contrast Bobby Vazquez MD [address] [facility] [address] [place] [address] Phone: tel: fax: Referral ID Status Reason Start Date Expiration Date Visits Re quested Visits Authorized [id number] Closed 06/16/2024 12/16/2025 1 1 * Imaging (Routine) - Closed Specialty Diagnoses / Procedures Referred By Contac t Referred To Contact Radiology Diagnoses Malignant tumor of right ureter (CMS/HCC) Procedures CT Chest w IV Contrast Bobby Vazquez MD [address] [facility] [address] [place] [address] Phone: tel: fax: Referral ID Status Reason Start Date Expiration Date Visits Re quested Visits Authorized [id number] Closed 06/16/2024 12/16/2025 1 1 Reason for Visit * Imaging (Routine) - Closed Specialty Diagnoses / Procedures Referred By Contac t Referred To Contact Radiology Diagnoses Malignant tumor of right ureter (CMS/HCC) Procedures CT Abdomen Pelvis w IV Contrast Bobby Vazquez MD 800 [facility] [address] [place] [address] Phone: tel: fax: Referral ID Status Reason Start Date Expiration Date Visits Re quested Visits Authorized [id number] Closed 06/16/2024 12/16/2025 1 1 Encounter Details Date Type Department Care Team (Latest Contact Info) Description 07/14/2024 8:28 AM EDT - 07/14/2024 11:59 PM EDT Hospital Encounter [facility] [address] [place] [address] Malignant tumor of right ureter (CMS/HCC) Discharge Disposition: Home or Self Care Social History Tobacco Use Types Packs/Day Years [...] Date Recorded Patient Health Questionnaire-2 Score 0 07/14/2024 Hunger Vital Sign Answer Date Recorded Within [...] place to sleep or slept in a nursing home (including now)? No 02/28/2023 PHQ-9 Answer Date Recorded Patient Health Questionnaire-9 Score 0 07/14/2024 Housing Stability Vital Sign Answer Epi e Recorded In the last 12 months, was t here a time when you were not able to pay the mortgage or rent on time? No 05/27/2024 In the past 12 months, how m any times have you moved where you were living? 0 05/27/2024 At any time in the past 12 m [facility], were you homeless or living in a nursing home (including now)? 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 0 02/27/2023 CAGE Questionnaire Score 0 023 Utilities Answer Date Recorded In the past [address], gas, oil, or water company threatened to [...] pleasure in doing things Not at all 07/14/2024 12:22 PM Aide Garsia A Feeling down, depressed, or hopeless Not at all 07/14/2024 12:22 PM Aide Garsia A Patient Health Questionnaire -2 Score 0 07/14/2024 12:22 PM Aide Garsia A * Question Answer Date of Assessment Author Trouble falling or staying asleep, or sleeping too much Not at all 07/14/2024 12:22 PM Aide Parks A Feeling tired or having jeanie le energy Not at all 07/14/2024 12:22 PM Aide Garsia A Poor appetite or overeating Not at all 07/14/2024 12 :22 PM Aide Garsia A Feeling bad about yourself - or that you are a failure or have let yourself or your family down Not at all 07/14/2024 12:22 PM Aide Garsia A Trouble concentrating on things, such as reading the newspaper or watching television Not at all 07/14/2024 12:22 PM Aide Garsia A Moving or speaking so slowly that other people could have noticed? Or the opposite - being so fidgety or restless that you have been moving around a lot more than usual. Not at all 07/14/2024 12:22 PM Aide Spence Thoughts that you would be better off or hurting yourself in some way Not at all 07/14/2024 12:22 PM Jessica Garsia Patient Health Questionnaire -9 Score 0 07/14/2024 12:22 PM EDT Aide Ramirez * If you checked off any problems on this questionnaire so far, Question Answer Date of Assessment Author How difficult have these problems made it for you to do your work, take care of things at home, or get along with other people? Not difficult at all 07/14/2024 12:22 PM Jessica Garsia documented as of this encounter Medications at Time of Discharge dexamethasone (Decadron) 4 MG tabletIndications:M alignant tumor of right ureter (CMS/HCC) Take 2 tablets by mouth 2 times a day. Start day prior to docetaxel and continue for a total of 3 days. 72 tablet 07/14/2024 dronabinol (Marinol) 5 MG capsule Take 1 capsule by mouth 2 times a day before meals. 60 capsule 07/14/2024 erdafitinib (Balversa) 4 MG tablet Take 2 tablets (8 mg total) by mouth daily. Take with or without food. Do not crush, chew, or dissolve. Swallow tablet(s) whole. 60 tablet 2 06/01/2024 fluticasone (Flonase) 50 MCG/ACT nasal spray Administer 1 spray into each nostril 1 (one) time each day. Shake gently. Before first use, prime pump. After use, clean tip and replace cap. 16 g 12 08/20/2023 gabapentin (Neurontin) 800 MG tablet Take 1 tablet by mouth 3 (three) times a day. loperamide (Imodium A-D) 2 MG tabletIndications:D ehydration,Malignan t tumor of right ureter (CMS/HCC) 2 mg by mouth every 2 hours as needed for diarrhea; Not to exceed 16 mg in 24 hours 30 tablet 5 11/28/2023 magic mouthwash BLM (FIRST-Mouthwash) suspensionIndicatio ns:Malignant tumor of right ureter (CMS/HCC) Use 15 mL in the mouth or throat 4 (four) times a day as needed for mucositis (swish and swallow prn for mouth sores). 237 mL 3 04/30/2024 montelukast (Singulair) 10 MG tablet Take 1 tablet by mouth nightly. 30 tablet 05/27/2024 morphine CR (MS Contin) 15 MG 12 hr tablet TAKE 1 TABLET 2 TIMES EACH DAY DO NOT CRUSH, CHEW OR SPLIT. 60 tablet 05/05/2023 mupirocin (Bactroban) 2 % ointment Put muprocin in bilateral nares twice daily for 7 days 1 g 12/26/2023 Nutritional Supplements (nepro/carb steady) Take 237 mL by mouth 2 (two) times a day. 59439 mL 5 06/16/2024 ondansetron ODT (Zofran-ODT) 4 MG disintegrating tablet Take 2 tablets (8 mg) by mouth every 8 (eight) hours. Alternate with compazine 60 tablet 3 01/21/2024 oxyCODONE (Roxicodone) 10 MG immediate release tablet Take 1 tablet by mouth 4 (four) times a day as needed. pantoprazole (Protonix) 40 MG EC tablet Take 1 tablet by mouth daily. polyethylene glycol (Miralax) 17 GM/SCOOP powder Take 17 g by mouth daily. tamsulosin (Flomax) 0.4 MG 24 hr capsule TAKE 1 CAPSULE BY MOUTH ONCE A DAY WITH DINNER 30 capsule 02/17/2023 tiZANidine (Zanaflex) 2 MG tablet Take 1 tablet by mouth 3 (three) times a day as needed for muscle spasms. senna-docusate sodium (Senokot-S) 8.6-50 MG tablet Take 1 tablet by mouth 1 (one) time each day. 30 tablet 3 05/28/2023 OLANZapine (ZyPREXA) 10 MG tablet Take 1 tablet by mouth nightly. 5 prochlorperazine (Compazine) 10 MG tabletIndications:D ehydration,Malignan t tumor of right ureter (CMS/HCC) Take 1 tablet (10 mg) by mouth every 6 (six) hours if needed for nausea or vomiting. 30 tablet 5 11/28/2023 5 hydrOXYzine pamoate (Vistaril) 25 MG capsule Take 1 capsule (25 mg) by mouth 3 (three) times a day if needed for anxiety. 30 capsule 02/27/2024 5 oxybutynin XL (Ditropan-XL) 10 MG 24 hr tablet Take 1 tablet (10 mg) by mouth 1 (one) time each day. Do not crush, chew, or split. 30 tablet 11 07/30/2023 5 Tirosint 125 MCG capsule Take 1 capsule by mouth daily before breakfast. 90 capsule 06/18/2024 5 documented as of this encounter Miscellaneous Notes * Sirisha Apodaca N - 07/14/2024 8:31 AM EDT Images from the original note were not included. 1639 Caring for Yourself after Contrast Imaging If you had ORAL contrast: ?? You can go back to your normal diet and activities as tolerated. ?? Drink plenty of fluids, unless told otherwise. If you had IV contrast: ?? You can go back to your normal diet and activities as tolerated. ?? Drink plenty of fluids, unless told otherwise. ?? Leave a bandage on the site for 30 minutes (where the IV was inserted or blood was drawn). If you had Intravesical (bladder) contrast: ?? Return to normal diet and activity. What you need to know about delayed reaction to IV contrast What is IV Contrast? ?? Contrast is a dye that is put into your body through an IV. ?? It is used for imaging scans such as CT scans and MRIs. ?? The contrast makes blood vessels, organs and other parts of your body show up better on the scan. What do I need to do after IV contrast? ?? Drink lots of fluids. This will help flush the contrast out of your system. ?? Drink 2-3 extra glasses or bottles of water within 4 hours of your scan. What is a contrast reaction? ?? A contrast reaction is a bad side effect from the contrast dye. ?? It is rare but it does happen. ?? They can be mild - such as sneezing, itching, or hives. ?? They can be severe - such as trouble breathing, throat swelling, and irregular heart beat. When do these reactions happen? ?? They often happen right after the contrast is injected. ?? Some happen hours after going home. Go to the nearest Emergency Department right away if you have any of these symptoms after you leavethe clinic or hospital. ?? Sneezing ?? Itching in your mouth, throat, eyes, ears, or skin ?? Rash or hives ?? Throwing up or stomach sickness ?? High heart rate or ?racing? of your heart ?? Feeling dizzy or woozy ?? Feeling short of breath or like you can?t take a deep breath ?? Feeling very anxious for no other reason It is very important that these reactions be treated. Tell the doctor or nurse that you are having a reaction to IV contrast dye. Do not ignore any sign of a reaction! All reactions must be assessed by a doctor. Call 911 if you are alone and your reaction is more than mild sneezing or itching. If you have a mild reaction, call to speak with a Radiologist, explain that you havehad a contrast reaction, as this needs to be added to your medical record. documented in this encounter Plan of Treatment Upcoming Encounters Date Type Department Care Team (Late st Contact Info) Description 08/27/2024 1:00 PM EDT Office Visit [facility] Multidisciplinary Oncology Clinic [address] [place] [address] Bobby Vazquez MD 800 [facility] Sh[address] [address] 08/27/2024 1:00 PM EDT Clinical Support [facility] Multidisciplinary Oncology Clinic [address] [place] [address] 08/27/2024 2:30 PM EDT Appointment [facility] Infusion Clinic 2 [address] [place] [address] 10/19/2024 11:30 AM EDT Office Visit [facility] Multidisciplinary Oncology Clinic [address] [place] [phone] Kym Romero, DIRECTORY CLERK 800 [facility] [address] [place] [address] 11/24/2024 11:00 AM EDT Office Visit [facility] [address] [place] [address] Adal Franklin MD [address] [place] [address] 12/15/2024 1:00 PM EDT Office Visit [facility] [address] [facility] [place] [address] Efren Fallon MD 110 [facility] [address] [place] [address] 12/29/2024 9:30 AM EDT Clinical Support [facility] [address] [facility], [address]nd [place] [address] 12/29/2024 10:00 AM EDT Office Visit [facility] [address] [facility], [address]nd [place] [address] Carlito Mccartney MD [facility] [address] [place] [address] 03/23/2025 10:40 AM EST Office Visit [facility] [address] [facility], [address] [place] [address] Arabella Romero, DIRECTORY CLERK [address] [place] [address] documented as of this encounter Procedures Procedure Name Priority Date/Time Associated Diagnosis Comments CT ABDOMEN PELVIS W IV CONTRAST Routine 07/14/2024 9:15 AM EDT Malignant tumor of right ureter (CMS/HCC) CT CHEST W IV CONTRAST Routine 07/14/2024 9:15 AM EDT Malignant tumor of right ureter [...] Total DLP (Dose-Length Product): 993.50 mGy.cm (accession [id number]), 993.50 mGy.cm (accession [id number]). Please note: The reported value represents the [...] Total DLP (Dose-Length Product): 993.50 mGy.cm (accession [id number]),993.50 mGy.cm (accession [id number]). Please note: The reported valuerepresents the total [...] Total DLP (Dose-Length Product): 993.50 mGy.cm (accession [id number]), 993.50 mGy.cm (accession [id number]). Please note: The reported value represents the [...] Total DLP (Dose-Length Product): 993.50 mGy.cm (accession [id number]),993.50 mGy.cm (accession [id number]). Please note: The reported valuerepresents the total [...] on 07/14/2024 10:14 AM Bobby Vazquez MD IM CT PROCEDURES Final Result documented in this encounter Visit Diagnoses Diagnosis Malignant tumor of right ureter (CMS/HCC) documented in this encounter Administered Medications Inactive Administered Medications - up to 3 most recent administrations Medication Order MAR Action Action Date Dose Rate Site iohexol (OMNIPaque) 300 MG/ML injection 100 mL 100 mL, Intravenous, Once in imaging, 1 dose, Starting on Fri07/14/24 at 0831, Until Fri07/14/24 at 0915, Routine, Imaging Protocol Orders Given 07/14/2024 9:15 AM EDT 100 mL iohexol (OMNIPaque) 9 MG/ML oral contrast 500 mL 500 mL, Oral, Once in imaging, 1 dose, Starting on Fri07/14/24 at 0831, Until Fri07/14/24 at 0836, Routine, Imaging Protocol Orders Given 07/14/2024 8:36 AM EDT 500 mL documented in this encounter Additional Health Concerns Assessment Noted Time PHQ-9 Depression Total Score: 0 07/15/19 12:22 PM EDT A fall risk assessment has been complete d for the patient 07/14/2024 12:22 PM EDT A Body Mass Index follow-up plan has been documented for the patient 05/27/2024 1:13 PM EDT documented as of this encounter Care Teams Engineer Process Relationship Specialty Start Date End Date Efren Roy DO [address] [place] [address] PCP - General 03/04/23 Efren Roy DO [address] [place] [address] Pain Medicine 01/03/23 Rosa Maria Beltran APRN [address] [place] [address] Nurse Practitioner Family Medicine 07/21/23 Bobby Vazquez MD [address] [facility] [address] [place] [address] Consulting Physician Medical Oncology 09/17/23 Cally Henderson PA [address] [facility] [address] [place] [address] Physician Table Assembler Metal Urology 09/17/23 documented as of this encounter
--- OUTSIDE RECORDS SUMMARY | 2024-07-14 13:00 | XMS_ITS | Encounter Summary ---
Author Organization [facility] Address [address] [place] [address] Care Team Providers Care Boat Driver Name Role Phone Efren Roy DO Unavailable [phone] Efren Roy DO Primary Care Provider [phone] Rosa Maria Beltran OPERATIONS OFFICER Unavailable [phone] Bobby Vazquez MD Unavailable Cally Henderson Unavailable Reason for Visit * Reason Comments Follow-up Malignant tumor of r ight ureter Encounter Details Date Type Department Care Team (Late st Contact Info) Description 07/14/2024 1:00 PM EDT Office Visit [facility] Multidisciplinary Oncology Clinic [address] [place] [address] Kym Romero, OPERATIONS OFFICER [address] [facility] [address] [address] 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) Social History Tobacco Use Types Packs/Day Years Used Date Smoking Tobacco: Never Cigarettes 1.5 30 - 2006 Passive Smoke Exposure: Yes Smokeless Tobacco: Current Snuff Tobacco Cessation:Ready to Q uit: Not Asked; Counseling Given: Not Answered Comments:10 x daily Alcohol Use Standard Drinks/Week [...] place to sleep or slept in a assisted (including now)? No 02/28/2023 PHQ-9 Answer Date [...] any time in the past 12 m [facility], were you homeless or living in a assisted (including now)? No 05/27/2024 CAGE ASSESSMENT Answer [...] drink first t tianna in the morning (EYE-PRESS PULLER) to steady your nerves or to get rid of a hangover? 0 02/27/2023 CAGE Questionnaire Score 0 023 Utilities Answer Date Recorded In the past 12 months has th [employer] gas, oil, or water [employer] threatened to shut off services in your [...] Sign Reading Time Taken Comments Blood Pressure 105/73 07/14/2024 12:17 PM EDT Pulse 90 07/14/2024 12:17 PM EDT Temperature 36.4 C (97.6 F) 07/14/2024 12:17 PM EDT Respiratory Rate - - Oxygen Saturation 100% 07/14/2024 12:17 PM EDT Inhaled Oxygen Concentration - - Weight 80.1 kg (176 lb 9.4 oz) 07/14/2024 12:17 PM EDT Height 177.8 cm (5' 10 ) 07/14/2024 12:17 PM EDT Body Mass Index 25.34 07/14/2024 12:17 PM EDT documented in this encounter Functional Status * Over the past 2 weeks, how often have you been bothered by any of the following problems? Question Answer Date of Assessment Author Little interest or pleasure in doing things Not at all 07/14/2024 12:22 PM Aide Garsia Feeling down, depressed, or hopeless Not at all 07/14/2024 12:22 PM Aide Garsia Patient Health Questionnaire -2 Score 0 07/14/2024 12:22 PM Aide Garsia * Question Answer Date of Assessment Author Trouble falling or staying asleep, or sleeping too much Not at all 07/14/2024 12:22 PM Aide Parks Feeling tired or having jeanie le energy Not at all 07/14/2024 12:22 PM Aide Garsia Poor appetite or overeating Not at all 07/14/2024 12 :22 PM Aide Garsia A Feeling bad about yourself - or that you are a failure or have let yourself or your family down Not at all 07/14/2024 12:22 PM Aide Garsia Trouble concentrating on things, such as reading the newspaper or watching television Not at all 07/14/2024 12:22 PM Aide Garsia Moving or speaking so slowly that other [...] Questionnaire -9 Score 0 07/14/2024 12:22 PM Aide Garsia * If you checked off any problems on this questionnaire so far, Question Answer Date of Assessment Author How difficult have these problems made it for you to do your work, take care of things at home, or get along with other people? Not difficult at all 07/14/2024 12:22 PM Jessica Garsia documented as of this encounter Miscellaneous Notes * Progress Notes - Kym Romero APRN - 07/14/2024 1:00 PM EDT Medical Oncology Clinic Note Patient Name: Adrián Goode Date of : 1965 59 y.o. Referring Physician:No referring provider defined for this encounter. Encounter Date: 07/14/2024 Interval History: The patient presents today for follow up and continuation of treatment with Erdafitinib. He is heretoday accompanied by hs . He rates pain 6/10 today and would like a refill on Marinol. It helpswith his appetite. He alternates between diarrhea and constipation. Has fatigue. Appetite is low and weight is fluctuating. Denies neuropathy, edema, n/v. No other significant clinical findings. Oncology History: Oncology History Overview Note -12/10/22: [...] unfortunately, he is not a candidate for [id number] due to the size of his regional [...] (08/27/2023) 11/28/2023 - 04/16/2024 Research Study Participant [id number]: Arm 1: Sacituzumab govitecan weekly x 2 Every 21 Days Plan Provider: Bobby Vazquez MD Treatment goal: [No plan goal] Line of treatment: [No plan line of treatment] Associated studies: [facility] RESEARCH PATIENT Past Medical, Surgical, Family and Social History: Reviewed, and unchanged from most recent clinic visit or updated as indicated. Allergies and Adverse Drug Reactions: Enfortumab vedotin Medications: Reviewed Review of Systems: 14 pt review of systems performed and negative except as noted in HPI. Physical Exam: Temp: [36.4 ??C (97.6 ??F)] 36.4 ??C (97.6 ??F) Heart Rate: [90] 90 BP: (105)/(73) 105/73 SpO2: [100 %] 100 % ECO General: Sitting/resting comfortably in chair, NAD HEENT: NCAT, PERRLA/EOMI, anicteric; no oral lesions Neck: Supple, no lymphadenopathy or JVD Heart: RRR, no MGR Lungs: CTAB; no rales, rhonchi or wheezes Abdomen: Soft, NTND, + BS Extremities: No edema, distal pulses intact Musculoskeletal: No focal tenderness or deformity Skin: No visible rashes or lesions Neuro: Grossly nonfocal; no localizing deficits of strength, sensation, or mentation Psychiatric: Normal mood and thought content LABS: Clinical Support on 07/14/2024 Component Date Value WBC Count 07/14/2024 7.19 RBC Count 07/14/2024 4.11 (L) HGB 07/14/2024 10.5 (L) HCT 07/14/2024 33.4 (L) Platelet Count 07/14/2024 248 MCV 07/14/2024 81 MCH 07/14/2024 25.5 (L) MCHC 07/14/2024 31.4 RDW 07/14/2024 14.7 (H) MPV 07/14/2024 9.4 nRBC 07/14/2024 0.0 Differential Type 07/14/2024 Automated Neutrophils % 07/14/2024 69 Lymphocytes % 07/14/2024 18 Monocytes % 07/14/2024 10 Eosinophils % 07/14/2024 1 Basophils % 07/14/2024 1 Immature Granulocytes % 07/14/2024 1 Neutrophils Absolute 07/14/2024 5.00 Lymphocytes Absolute 07/14/2024 1.32 Monocytes Absolute 07/14/2024 0.71 Eosinophils Absolute 07/14/2024 0.07 Basophils Absolute 07/14/2024 0.04 Immature Granulocytes Ab* 07/14/2024 0.05 Glucose, Plasma 07/14/2024 95 BUN, Plasma 07/14/2024 14 Creatinine, Plasma 07/14/2024 1.09 BUN/Creatinine Ratio 07/14/2024 13 Sodium, Plasma 07/14/2024 133 (L) Potassium, Plasma 07/14/2024 4.4 Chloride, Plasma 07/14/2024 97 CO2, Plasma 07/14/2024 25 Anion Gap 07/14/2024 11 Total Calcium, Plasma 07/14/2024 9.9 Total Protein 07/14/2024 7.2 Albumin, Plasma 07/14/2024 3.8 AST, Plasma 07/14/2024 40 ALT, Plasma 07/14/2024 32 Alkaline Phosphatase, Pl* 07/14/2024 113 Total Bilirubin, Plasma 07/14/2024 <0.2 (L) eGFRcr 07/14/2024 77.7 RADIOLOGY: CLINICAL INDICATION: Bladder cancer, invasive, assess treatment response TECHNIQUE: Multiple axial CT images were obtained from thoracic inlet through pubic symphysis following administration of IV contrast, Omnipaque 300, 100 mL. Reformatted images in the coronal and sagittal planes were generated from the axial data set to facilitate diagnostic accuracy. Total DLP (Dose-Length Product): 993.50 mGy.cm (accession [id number]), 993.50 mGy.cm (accession [id number]). Please note: The reported value represents the [...] caliber. No pericardial effusion. Thoracic great vessels arepatent. Lungs and Pleura: The central airways are [...] new aortocaval and pericaval lymph nodes measuring upto 14 mm (series 3, image 137). Interval [...] (series 3, image 247), previously measured about 2.6cm. Right internal iliac lymph node measuring about [...] at the posterior bladder wall (series 3, ). Stable enlarged pelvic lymph nodes as described [...] as described above, concerning for metastatic lymphadenopathy. ASSESSMENT AND PLAN: Adrián Goode is a [...] unfortunately, he is not a candidate for [id number] due to the size of his regional [...] pembro + EV - Currrently enrolled on [id number]: A Phase III Randomized Trial of Eribulin (NSC #[id number]) with or Without Gemcitabine Versus Standard of [...] nail hyperpigmentation, eye toxicity etc PLAN for 07/14/2024: - Due to progression on scans (see above) will stop Erdafitinib 8mg daily - Labs and PS reviewed - Consent obtained today for Docetaxel per Dr. Vazquez - Slot held for 07/23/2024 for C1 Docetaxel - RTC on 08/13/2024 for f/up with Dr. Vazquez and C2 #TSH elevated - TSH 6.11, Free T4 1.4- WNL - Taking Tirosint 125 mcg daily - Will cont to monitor, followed by Die [employer] Bench [employer]amping #Hyperphosphatemia - Phosphorus level 5.5 on 06/16/2024, will no longer be monitored since he will not be taking Erdafitinib The selection, dosing and administration of anti-cancer [...] of associated toxicities in patients with cancer. Kym Romero APRN Division of Medical Oncology * Progress Notes - Leticia Nails PharmD - 07/14/2024 1:00 PM EDT Images from the original note were not included. Pharmacy Hematology/Oncology Patient Education Note I counseled the patient on their cancer treatment regimen, which is planned to start pending infusion schedule. The cancer therapy that this patient is scheduled to receive includes: docetaxel. I provided the patient with a written explanation of the docetaxel, and its expected side effects, toxicities, and adverse reactions, including but not limited to: Reduced blood counts Fatigue/weakness Diarrhea Nausea/vomiting Hair loss Rash/Skin/nail changes Infusion reactions Neuropathy Fluid buildup I provided verbal explanation of the same material and provided methods for self-monitoring: Management of antiemetics was reviewed Home steroid prescription instructions were reviewed Reasons to contact clinic (fever >100.4, uncontrolled symptoms, etc) were reviewed. [X] Docetaxel consent was signed 07/14/24. I answered all questions that the patient and caregiver had. The patient and caregiver demonstratedunderstanding of the material, and wished to proceed with the treatment. Leticia Nails PharmD Clinical Oncology Pharmacist documented in this encounter Plan of Treatment Upcoming Encounters Date Type Department Care Team (Late st Contact Info) Description 08/27/2024 1:00 PM EDT Office Visit [facility] Multidisciplinary Oncology Clinic [address] [place] [address] TaylorBobby currie MD 800 [facility] [address] [address] 08/27/2024 1:00 PM EDT Clinical Support [facility] Multidisciplinary Oncology Clinic [address] [place] [address] 08/27/2024 2:30 PM EDT Appointment [facility] [address] [place] [address] 10/19/2024 11:30 AM EDT Office Visit [facility] Multidisciplinary Oncology Clinic [address] [place] [phone] Kym Romero R, OPERATIONS OFFICER 800 [facility] [address] [place] [address] 11/24/2024 11:00 AM EDT Office Visit [facility]cology [facility] [address] [place] [address] Adal Franklin MD [address] [place] [phone] 12/15/2024 1:00 PM EDT Office Visit [facility] [address] [facility] [place] [address] Efren Fallon MD [address] [facility] [address] [place] [address] 12/29/2024 9:30 AM EDT Clinical Support [facility] [address] [facility] [place] [phone] 12/29/2024 10:00 AM EDT Office Visit [facility] [address] [facility] [place] [address] Carlito Mccartney MD [address] [facility] [address] [place] [phone] 03/23/2025 10:40 AM EST Office Visit [facility] [address] [facility] [place] [phone] Arabella Romero, OPERATIONS OFFICER [address] [place] [address] documented as of this encounter Results * (ABNORMAL) Comprehensive Metabolic Panel, Plasma (07/14/2024 10:09 AM EDT) Glucose, Plasma 95 74 - 99 mg/dL 07/14/2024 11:00 AM EDT [facility] BUN, Plasma 14 8 - 23 mg/dL 07/14/2024 11:00 AM EDT [facility] Creatinine, Plasma 1.09 0.70 - 1.20 mg/dL 07/14/2024 11:00 AM EDT [facility] BUN/Creatinine Ratio 13 07/14/2024 11:00 AM EDT [facility] Sodium, Plasma 133(L) 136 - 145 mmol/L 07/14/2024 11:00 AM EDT [facility] Potassium, Plasma 4.4 3.6 - 4.9 mmol/L 07/14/2024 11:00 AM EDT [facility] Chloride, Plasma 97 97 - 107 mmol/L 07/14/2024 11:00 AM EDT [facility] CO2, Plasma 25 22 - 29 mmol/L 07/14/2024 11:00 AM EDT [facility] Anion Gap 11 6 - 16 mmol/L 07/14/2024 11:00 AM EDT [facility] Total Calcium, Plasma 9.9 8.9 - 10.2 mg/dL 07/14/2024 11:00 AM EDT [facility] Total Protein 7.2 6.3 - 7.9 g/dL 07/14/2024 11:00 AM EDT [facility] Albumin, Plasma 3.8 3.5 - 5.2 g/dL 07/14/2024 11:00 AM EDT [facility] AST, Plasma 40 10 - 50 U/L 07/14/2024 11:00 AM EDT [facility] ALT, Plasma 32 10 - 50 U/L 07/14/2024 11:00 AM EDT [facility] Alkaline Phosphatase, Plasma 113 40 - 115 U/L 07/14/2024 11:00 AM EDT [facility] Total Bilirubin, Plasma <0.2(L) 0.2 - 1.1 mg/dL 07/14/2024 11:00 AM EDT [facility] eGFRcr 77.7 mL/min/1.7 3m*2 07/14/2024 11:00 AM EDT [facility] Comment:Reported eGFRcr in m L/min/1.73m2 is based the CKD-EPI 2020 equation that does not use a race coefficient. Blood Blood sample taken from central line / Unknown (Port) Long-term Catheter / Unknown 07/14/2024 10:09 AM EDT 07/14/2024 10:28 AM EDT us Bobby Vazquez MD LAB BLOOD ORDERABLES Final Resul t [facility] [address] [place] [address] * (ABNORMAL) CBC and Differential (07/14/2024 10:09 AM EDT) WBC Count 7.19 3.70 - 10.30 10*3/uL LAB HEMATOLOGY METHOD 07/14/2024 10:50 AM EDT [facility] RBC Count 4.11(L) 4.60 - 6.10 10*6/uL LAB HEMATOLOGY METHOD 07/14/2024 10:50 AM EDT [facility] HGB 10.5(L) 13.7 - 17.5 g/dL LAB HEMATOLOGY METHOD 07/14/2024 10:50 AM EDT [facility] HCT 33.4(L) 40.0 - 51.0 % LAB HEMATOLOGY METHOD 07/14/2024 10:50 AM EDT [facility] Platelet Count 248 155 - 369 10*3/uL LAB HEMATOLOGY METHOD 07/14/2024 10:50 AM EDT [facility] MCV 81 79 - 98 fL LAB HEMATOLOGY METHOD 07/14/2024 10:50 AM EDT [facility] MCH 25.5(L) 26.0 - 32.0 pg LAB HEMATOLOGY METHOD 07/14/2024 10:50 AM EDT [facility] MCHC 31.4 30.7 - 35.5 g/dL LAB HEMATOLOGY METHOD 07/14/2024 10:50 AM EDT [facility] RDW 14.7(H) 11.5 - 14.5 % LAB HEMATOLOGY METHOD 07/14/2024 10:50 AM EDT [facility] MPV 9.4 8.8 - 12.5 fL LAB HEMATOLOGY METHOD 07/14/2024 10:50 AM EDT [facility] nRBC 0.0 <=0.0 per 100 WBCs LAB HEMATOLOGY METHOD 07/14/2024 10:50 AM EDT [facility] Differential Type Automated LAB HEMATOLOGY METHOD 07/14/2024 10:50 AM EDT [facility] Neutrophils % 69 % LAB HEMATOLOGY METHOD 07/14/2024 10:50 AM EDT [facility] Lymphocytes % 18 % LAB HEMATOLOGY METHOD 07/14/2024 10:50 AM EDT [facility] Monocytes % 10 % LAB HEMATOLOGY METHOD 07/14/2024 10:50 AM EDT [facility] Eosinophils % 1 % LAB HEMATOLOGY METHOD 07/14/2024 10:50 AM EDT [facility] Basophils % 1 % LAB HEMATOLOGY METHOD 07/14/2024 10:50 AM EDT [facility] Immature Granulocytes % 1 % LAB HEMATOLOGY METHOD 07/14/2024 10:50 AM EDT [facility] Neutrophils Absolute 5.00 1.60 - 6.10 10*3/uL LAB HEMATOLOGY METHOD 07/14/2024 10:50 AM EDT [facility] Lymphocytes Absolute 1.32 1.20 - 3.90 10*3/uL LAB HEMATOLOGY METHOD 07/14/2024 10:50 AM EDT [facility] Monocytes Absolute 0.71 0.30 - 0.90 10*3/uL LAB HEMATOLOGY METHOD 07/14/2024 10:50 AM EDT [facility] Eosinophils Absolute 0.07 0.00 - 0.50 10*3/uL LAB HEMATOLOGY METHOD 07/14/2024 10:50 AM EDT [facility] Basophils Absolute 0.04 0.00 - 0.10 10*3/uL LAB HEMATOLOGY METHOD 07/14/2024 10:50 AM EDT [facility] Immature Granulocytes Absolute 0.05 0.00 - 0.06 10*3/uL LAB HEMATOLOGY METHOD 07/14/2024 10:50 AM EDT [facility] Blood Blood sample taken from central line / Unknown (Port) Long-term Catheter / Unknown 07/14/2024 10:09 AM EDT 07/14/2024 10:40 AM EDT Narrative [facility] - 07/14/2024 10:50 AM EDT Therapeutic decision making should be based on absolute values, rather than percentages. us Bobby Vazquez MD LAB BLOOD ORDERABLES Final Resul t [facility] [address] [place] [address] documented in this encounter Visit Diagnoses Diagnosis 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 documented in this encounter Additional Health Concerns Assessment Noted Time PHQ-9 Depression Total Score: 0 07/15/19 25 12:22 PM EDT A fall risk assessment has been complete d for the patient 07/14/2024 12:22 PM EDT A Body Mass Index follow-up plan has been documented for the patient 05/27/2024 1:13 PM EDT documented as of this encounter Care Teams Boat Driver Relationship Specialty Start Date End Date Efren Roy DO [address] [place] [id number] PCP - General 03/04/23 Efren Roy DO [address] [place] [id number] Pain Medicine 01/03/23 Rosa Maria Beltran APRN [address] [address] Nurse Practitioner Family Medicine 07/21/23 Bobby Vazquez MD [address] [facility] [address] [place] [address] Consulting Physician Medical Oncology 09/17/23 Cally Henderson PA [address] [facility] [address] [place] [address] Physician Mobile Ui Developer Urology 09/17/23 documented as of this encounter
--- OUTSIDE RECORDS SUMMARY | 2024-07-14 13:00 | XMS_ITS | Encounter Summary ---
Author Organization [facility] Address [address] [place] [address] Care Team Providers Care Pulmonary Nurse Practitioner Name Role Phone Efren Roy DO Unavailable [phone] Efrne Roy DO Primary Care Provider [phone] Rosa Maria Beltran APRN Unavailable [phone] Bobby Vazquez MD Unavailable Cally Henderson Unavailable [phone] Encounter Details Date Type Department Care Team (Latest Contact Info) Description 07/14/2024 1:00 PM EDT Clinical Support [facility] Multidisciplinary Oncology Clinic [address] [place] [address] Georgina Lucero, RN Malignant tumor of right [...] place to sleep or slept in a alf (including now)? No 02/28/2023 PHQ-9 Answer Date [...] any time in the past 12 m [facility], were you homeless or living in a alf (including now)? No 05/27/2024 CAGE ASSESSMENT Answer [...] drink first t tianna in the morning (EYE-RECREATION SPECIALIST) to steady your nerves or to get [...] Description 08/27/2024 1:00 PM EDT Office Visit [facility] Multidisciplinary Oncology Clinic [address] [place] [phone] Bobby Vazquez MD 800 [facility] [address] [address] 08/27/2024 1:00 PM EDT Clinical Support [facility] Multidisciplinary Oncology Clinic [address] [place] [phone] 08/27/2024 2:30 PM EDT Appointment [facility] Infusion Clinic [address] [place] [phone] 10/19/2024 11:30 AM EDT Office Visit [facility] [address] [place] [phone] Kym Romero, DEPARTMENT COORDINATOR 800 [facility] [address] [place] [phone] 11/24/2024 11:00 AM EDT Office Visit [facility] [address] [place] [phone] Adal Franklin MD [address] [place] [phone] 12/15/2024 1:00 PM EDT Office Visit [facility] [address] [place] [address] Efren Fallon MD 110 [facility] [address] [place] [address] 12/29/2024 9:30 AM EDT Clinical Support [facility] [address] [facility], [address]nd [place] [phone] 12/29/2024 10:00 AM EDT Office Visit [facility] [address] [facility], [address] [place] [phone] Carlito Mccartney MD [address] [facility] [address] [place] [address] 03/23/2025 10:40 AM EST Office Visit [facility] [address] [facility], [address]nd [place] [phone] Arabella Romero, DEPARTMENT COORDINATOR [address] [place] [address] documented as of this encounter [...] - 99 mg/dL 07/14/2024 11:00 AM EDT [facility] BUN, Plasma 14 8 - 23 mg/dL 07/14/2024 11:00 AM EDT [facility] Creatinine, Plasma 1.09 0.70 - 1.20 mg/dL 07/14/2024 11:00 AM EDT [facility] BUN/Creatinine Ratio 13 07/14/2024 11:00 AM EDT [facility] Sodium, Plasma 133(L) 136 - 145 mmol/L 07/14/2024 11:00 AM EDT [facility] Potassium, Plasma 4.4 3.6 - 4.9 mmol/L 07/14/2024 11:00 AM EDT [facility] Chloride, Plasma 97 97 - 107 mmol/L 07/14/2024 11:00 AM EDT [facility] CO2, Plasma 25 22 - 29 mmol/L 07/14/2024 11:00 AM EDT [facility] Anion Gap 11 6 - 16 mmol/L 07/14/2024 11:00 AM EDT [facility] Total Calcium, Plasma 9.9 8.9 - 10.2 mg/dL 07/14/2024 11:00 AM EDT [facility] Total Protein 7.2 6.3 - 7.9 g/dL 07/14/2024 11:00 AM EDT [facility] Albumin, Plasma 3.8 3.5 - 5.2 g/dL 07/14/2024 11:00 AM EDT [facility] AST, Plasma 40 10 - 50 U/L 07/14/2024 11:00 AM EDT [facility] ALT, Plasma 32 10 - 50 U/L 07/14/2024 11:00 AM EDT [facility] Alkaline Phosphatase, Plasma 113 40 - 115 U/L 07/14/2024 11:00 AM EDT [facility] Total Bilirubin, Plasma <0.2(L) 0.2 - 1.1 mg/dL 07/14/2024 11:00 AM EDT [facility] eGFRcr 77.7 mL/min/1.7 3m*2 07/14/2024 11:00 AM EDT [facility] Comment:Reported eGFRcr in m L/min/1.73m2 is based the CKD-EPI 2020 equation that does not use a race coefficient. Blood Blood sample taken from central line / Unknown (Port) Long-term Catheter / Unknown 07/14/2024 10:09 AM EDT 07/14/2024 10:28 AM EDT us Bobby Vazquez MD LAB BLOOD ORDERABLES Final Resul t [facility] [address] [place] [address] * (ABNORMAL) CBC and Differential (07/14/2024 10:09 AM EDT) WBC Count 7.19 3.70 - 10.30 10*3/uL LAB HEMATOLOGY METHOD 07/14/2024 10:50 AM EDT [facility] RBC Count 4.11(L) 4.60 - 6.10 10*6/uL LAB HEMATOLOGY METHOD 07/14/2024 10:50 AM EDT [facility] HGB 10.5(L) 13.7 - 17.5 g/dL LAB HEMATOLOGY METHOD 07/14/2024 10:50 AM EDT [facility] HCT 33.4(L) 40.0 - 51.0 % LAB HEMATOLOGY METHOD 07/14/2024 10:50 AM EDT [facility] Platelet Count 248 155 - 369 10*3/uL LAB HEMATOLOGY METHOD 07/14/2024 10:50 AM EDT [facility] MCV 81 79 - 98 fL LAB HEMATOLOGY METHOD 07/14/2024 10:50 AM EDT [facility] MCH 25.5(L) 26.0 - 32.0 pg LAB HEMATOLOGY METHOD 07/14/2024 10:50 AM EDT [facility] MCHC 31.4 30.7 - 35.5 g/dL LAB HEMATOLOGY METHOD 07/14/2024 10:50 AM EDT [facility] RDW 14.7(H) 11.5 - 14.5 % LAB HEMATOLOGY METHOD 07/14/2024 10:50 AM EDT [facility] MPV 9.4 8.8 - 12.5 fL LAB HEMATOLOGY METHOD 07/14/2024 10:50 AM EDT [facility] nRBC 0.0 <=0.0 per 100 WBCs LAB HEMATOLOGY METHOD 07/14/2024 10:50 AM EDT [facility] Differential Type Automated LAB HEMATOLOGY METHOD 07/14/2024 10:50 AM EDT [facility] Neutrophils % 69 % LAB HEMATOLOGY METHOD 07/14/2024 10:50 AM EDT [facility] Lymphocytes % 18 % LAB HEMATOLOGY METHOD 07/14/2024 10:50 AM EDT [facility] Monocytes % 10 % LAB HEMATOLOGY METHOD 07/14/2024 10:50 AM EDT [facility] Eosinophils % 1 % LAB HEMATOLOGY METHOD 07/14/2024 10:50 AM EDT [facility] Basophils % 1 % LAB HEMATOLOGY METHOD 07/14/2024 10:50 AM EDT [facility] Immature Granulocytes % 1 % LAB HEMATOLOGY METHOD 07/14/2024 10:50 AM EDT [facility] Neutrophils Absolute 5.00 1.60 - 6.10 10*3/uL LAB HEMATOLOGY METHOD 07/14/2024 10:50 AM EDT [facility] Lymphocytes Absolute 1.32 1.20 - 3.90 10*3/uL LAB HEMATOLOGY METHOD 07/14/2024 10:50 AM EDT [facility] Monocytes Absolute 0.71 0.30 - 0.90 10*3/uL LAB HEMATOLOGY METHOD 07/14/2024 10:50 AM EDT [facility] Eosinophils Absolute 0.07 0.00 - 0.50 10*3/uL LAB HEMATOLOGY METHOD 07/14/2024 10:50 AM EDT [facility] Basophils Absolute 0.04 0.00 - 0.10 10*3/uL LAB HEMATOLOGY METHOD 07/14/2024 10:50 AM EDT [facility] Immature Granulocytes Absolute 0.05 0.00 - 0.06 10*3/uL LAB HEMATOLOGY METHOD 07/14/2024 10:50 AM EDT [facility] Blood Blood sample taken from central line / Unknown (Port) Long-term Catheter / Unknown 07/14/2024 10:09 AM EDT 07/14/2024 10:40 AM EDT Narrative [facility] - 07/14/2024 10:50 AM EDT Therapeutic decision making should be based on absolute values, rather than percentages. us Bobby Vazquez MD LAB BLOOD ORDERABLES Final Resul t [facility] [address] [place] [phone] documented in this encounter Visit Diagnoses Diagnosis [...] documented as of this encounter Care Teams Pulmonary Nurse Practitioner Relationship Specialty Start Date End Date Efren Roy DO [address] [place] [id number] PCP - General 03/04/23 Efren Roy DO [address] [place] [address] Pain Medicine 01/03/23 Rosa Maria Beltran APRN [address] [facility] [address] [place] [phone] Nurse Practitioner Family Medicine 07/21/23 Bobby Vazquez MD 800 [facility] [address] [facility] [address] [place] [phone] Consulting Physician Medical Oncology 09/17/23 Cally Henderson PA [address] [address] Physician [employer] Urology 09/17/23 documented as of this encounter
--- OUTSIDE RECORDS SUMMARY | 2024-07-23 11:29 | XMS_ITS | Encounter Summary ---
Author Organization Healthcare Address [address] [place] [address] Care Team Providers Care Wound Nurse Name Role Phone Efren Roy DO Unavailable [phone] Efren Roy DO Primary Care Provider [phone] Rosa Maria Beltran APRN Unavailable Bobby Vazquez MD Unavailable Cally Henderson Unavailable [phone] Reason for Visit * Reason Comments Vomiting * Auth/Cert (Routine) Specialty Diagnoses / Procedures Referred By Contmartha t Referred To Contact Diagnoses Nausea and vomiting, unspecified vomiting type [facility] [address] [place] [address] Phone: tel: [facility] A Emergency Department [address] [place] [address] Phone: tel: Referral ID Status Reason Start Date Expiration Date Visits Re quested Visits Authorized [id number] 1 1 Encounter Details Date Type Department Care Team (Latest Contact Info) Description 07/23/2024 11:29 AM EDT - 07/24/2024 9:27 AM EDT Hospital Encounter [facility] Emergency Department [address] [place] [address] Tanna Grande MD [address] [place] [address] Elliot Frankel MD [address] [place] [address] Tomasz Pedraza DO [address] [place] [address] Radha Wong MD [address] [place] [address] Acute cystitis without hematuria (Primary [...] place to sleep or slept in a halfway (including now)? No 02/28/2023 PHQ-9 Answer Date [...] any time in the past 12 m [facility], were you homeless or living in a halfway (including now)? No 05/27/2024 CAGE ASSESSMENT Answer [...] drink first t tianna in the morning (EYE-ASSISTANT IMPORT MANAGER) to steady your nerves or to get [...] by mouth 2 (two) times a day. 31922 mL 5 06/16/2024 ondansetron ODT (Zofran-ODT) 4 [...] time each day. 30 tablet 3 05/28/2023 amoxicillin (Amoxil) 500 MG capsuleIndications: Acute cystitis without hematuria Take 1 capsule by mouth 3 times a day for 10 days. 30 capsule 07/27/2024 5 cefadroxil (Duricef) 500 MG capsuleIndications: Acute cystitis without hematuria Take 2 capsules by mouth 2 times a day for 10 days. 40 capsule 07/24/2024 5 OLANZapine (ZyPREXA) 10 MG tablet Take [...] not crush, chew, or split. 30 tablet 07/30/2023 5 Tirosint 125 MCG capsule Take 1 capsule by mouth daily before breakfast. 90 capsule 06/18/2024 5 documented as of this encounter Miscellaneous Notes * Progress Notes - Shital Campo MD - 07/24/2024 9:27 AM EDT [facility] Urology Inpatient Progress Note Primary Attending: [...] urologic perspective Shital Campo MD Msc Urology PGY-7 Cosigned by Lucille Crockett MD at 07/24/2024 3:50 PM EDT Associated attestation - Lucille Crockett MD - 07/24/2024 3:50 PM EDT I saw and evaluated the patient with the resident/fellow. I discussed the case with the resident/fellow and agree with the findings and plan as documented. * Jg Garza MD - 07/24/2024 9:13 AM EDT Images from the original note were not included. [id number] Bladder Infection, Male (Adult) You have a [...] dizziness Last Reviewed Date: 2021 00:00:00 ?? [id number] [employer]. All rights reserved. This information is not intended as a substitute for professional medical care. Always follow your healthcare professional's instructions. * Discharge Summary - Jg Newby MD - 07/24/2024 9:00 AM EDT Hospitalization Admit Date/Time: 07/23/2024 11:29 AM Admitting Attending: Discharge Date: 07/24/2024 Discharge Attending Physician: Radha Wong MD PCP name and Address: Efren Roy DO [address] [place] [address] / [place] [address] Referring provider name and address: No referring [...] Your Medications These medications were sent to [facility] - [place], [place] - 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 [facility] at [facility]. Cal Stanford 07/23/24 9127 * H&P - Ave Hoffman MD - [...] Value Units Date/Time Urine culture- (clean catch) [[id number]] Collected: 07/23/24 1536 Order Status: Sent Specimen: [...] 5mg BiD for nausea, as well as [id number] IV q6hr PRN - Continue Flomax 0.4mg [...] pIV CODE: Full Code SOCIAL: Lives in [facility] PT/OT: Not indicated at this time [...] Procedure Laterality Date COLONOSCOPY PORTACATH PLACEMENT Right NM CYSTO/URETERO/PYELOSCOPY, DX Right 12/20/2022 Procedure: DIAGNOSTIC URETEROSCOPY; Surgeon: Sunday Lopez MD; Location: [facility]; Service: Urology THYROID SURGERY N/A Thyroid Surgery from [facility] UPPER GASTROINTESTINAL ENDOSCOPY [4] Family History Problem [...] MD Consult ordered by: Tanna Grande MD [facility] Urology Consult Note 07/23/24 Service Requesting [...] For questions or concerns, please contact the construction project administrator urologic oncology resident via [employer] Secure Chat. Shital Campo MD Msc Urology [...] Procedure Laterality Date COLONOSCOPY PORTACATH PLACEMENT Right NM CYSTO/URETERO/PYELOSCOPY, DX Right 12/20/2022 Procedure: DIAGNOSTIC URETEROSCOPY; Surgeon: Sunday Lopez MD; Location: [facility] OR; Service: Urology THYROID SURGERY N/A Thyroid Surgery from [facility] UPPER GASTROINTESTINAL ENDOSCOPY [3] Family History Problem [...] at this time. History provided by: Patient ship keeper used: No Main ED Adrián Goode is [...] draw Order ID Start Status Ordering Provider [id number] 07/24/24399 Acknowledged HOFFMAN, ALI N 07/25/24 0400 Scheduled HOFFMAN, ALI N 07/26/24 0400 Scheduled HOFFMAN, ALI N 07/27/24 0400 Scheduled HOFFMAN, ALI N 07/28/24 0400 Scheduled HOFFMAN, ALI N Acknowledged HOFFMAN, ALI N 07/23/24 193 Phosphorus, Plasma Morning draw Order ID Start Status Ordering Provider [id number] 07/24/24399 Acknowledged HOFFMAN, ALI N 07/25/24 0400 Scheduled HOFFMAN, ALI N 07/26/24 0400 Scheduled HOFFMAN, ALI N 07/27/24 0400 Scheduled HOFFMAN, ALI N 07/28/24 040 Scheduled HOFFMAN, ALI N Acknowledged HOFFMAN, ALI N 07/23/24 193 Magnesium, Plasma Morning draw Order ID Start Status Ordering Provider [id number] 07/24/24399 Acknowledged HOFFMAN, ALI N 07/25/24 0400 Scheduled HOFFMAN, ALI N 07/26/24 0400 Scheduled HOFFMAN, ALI N 07/27/24 0400 Scheduled HOFFMAN, ALI N 07/28/24 0400 Scheduled HOFFMAN, ALI N Acknowledged HOFFMAN, ALI N 07/23/24 1930 CBC and Differential Morning draw Order ID Start Status Ordering Provider [id number] 07/24/24399 Acknowledged HOFFMAN, ALI N 07/25/24 0400 [...] 07/23/24 1209 Magnesium STAT Final result TANNA GRADNE Estella 07/23/24 1123 Bladder scan Once Acknowledged [...] Lactic acid, venous STAT Final result [facility] ED Course as of 07/23/241935July 23, 2024 [...] Procedure Laterality Date COLONOSCOPY PORTACATH PLACEMENT Right NM CYSTO/URETERO/PYELOSCOPY, DX Right 12/20/2022 Procedure: DIAGNOSTIC URETEROSCOPY; Surgeon: Sunday Lopez MD; Location: [facility]; Service: Urology THYROID SURGERY N/A Thyroid Surgery from [facility] UPPER GASTROINTESTINAL ENDOSCOPY [3] Family History Problem [...] 1:00 PM EDT Office Visit [facility] Multidisciplinary Oncology Clinic [address] [place] [address] Bobby Vazquez MD [address] [facility] [address] [place] [address] 08/27/2024 1:00 PM EDT Clinical Support [facility] Multidisciplinary Oncology Clinic [address] [place] [address] 08/27/2024 2:30 PM EDT Appointment [facility] Infusion Clinic [address] [place] [address] 10/19/2024 11:30 AM EDT Office Visit [facility] Multidisciplinary Oncology Clinic [address] [place] [address] Kym Romero, JYOTSNA [address] [facility] [address] [place] [address] 11/24/2024 11:00 AM EDT Office Visit [facility] Multidisciplinary Oncology Clinic [address] [place] [address] Adal Franklin MD [address] [facility] [address] [place] [address] 12/15/2024 1:00 PM EDT Office Visit [facility] [address] [place] [address] Efren Fallon MD [address] [facility] [address] [place] [address] 12/29/2024 9:30 AM EDT Clinical Support [facility] [address] [facility], [address] [place] [address] 12/29/2024 10:00 AM EDT Office Visit [facility] [address] [facility], [address] [place] [address] Carlito Mccartney MD [address] [facility] [address] [place] [address] 03/23/2025 10:40 AM EST Office Visit [facility] [address] [facility], [address] [place] [address] Arabella Romero, PROFESSOR OF GRAPHIC DESIGN [address] [place] [address] documented as of this encounter [...] CBC and Differential (07/24/2024 4:06 AM EDT) WBC Count 8.94 3.70 - 10.30 10*3/uL LAB HEMATOLOGY METHOD 07/24/2024 4:11 AM EDT [facility] RBC Count 3.56(L) 4.60 - 6.10 10*6/uL LAB HEMATOLOGY METHOD 07/24/2024 4:11 AM EDT [facility] HGB 9.2(L) 13.7 - 17.5 g/dL LAB HEMATOLOGY METHOD 07/24/2024 4:11 AM EDT [facility] HCT 28.2(L) 40.0 - 51.0 % LAB HEMATOLOGY METHOD 07/24/2024 4:11 AM EDT [facility] Platelet Count 203 155 - 369 10*3/uL LAB HEMATOLOGY METHOD 07/24/2024 4:11 AM EDT [facility] MCV 79 79 - 98 fL LAB HEMATOLOGY METHOD 07/24/2024 4:11 AM EDT [facility] MCH 25.8(L) 26.0 - 32.0 pg LAB HEMATOLOGY METHOD 07/24/2024 4:11 AM EDT [facility] MCHC 32.6 30.7 - 35.5 g/dL LAB HEMATOLOGY METHOD 07/24/2024 4:11 AM EDT [facility] RDW 15.5(H) 11.5 - 14.5 % LAB HEMATOLOGY METHOD 07/24/2024 4:11 AM EDT [facility] MPV 9.3 8.8 - 12.5 fL LAB HEMATOLOGY METHOD 07/24/2024 4:11 AM EDT [facility] nRBC 0.0 <=0.0 per 100 WBCs LAB HEMATOLOGY METHOD 07/24/2024 4:11 AM EDT [facility] Differential Type Automated LAB HEMATOLOGY METHOD 07/24/2024 4:11 AM EDT [facility] Neutrophils % 75 % LAB HEMATOLOGY METHOD 07/24/2024 4:11 AM EDT [facility] Lymphocytes % 16 % LAB HEMATOLOGY METHOD 07/24/2024 4:11 AM EDT [facility] Monocytes % 8 % LAB HEMATOLOGY METHOD 07/24/2024 4:11 AM EDT [facility] Eosinophils % 1 % LAB HEMATOLOGY METHOD 07/24/2024 4:11 AM EDT [facility] Basophils % 0 % LAB HEMATOLOGY METHOD 07/24/2024 4:11 AM EDT [facility] Immature Granulocytes % 0 % LAB HEMATOLOGY METHOD 07/24/2024 4:11 AM EDT [facility] Neutrophils Absolute 6.64(H) 1.60 - 6.10 10*3/uL LAB HEMATOLOGY METHOD 07/24/2024 4:11 AM EDT [facility] Lymphocytes Absolute 1.45 1.20 - 3.90 10*3/uL LAB HEMATOLOGY METHOD 07/24/2024 4:11 AM EDT [facility] Monocytes Absolute 0.73 0.30 - 0.90 10*3/uL LAB HEMATOLOGY METHOD 07/24/2024 4:11 AM EDT [facility] Eosinophils Absolute 0.06 0.00 - 0.50 10*3/uL LAB HEMATOLOGY METHOD 07/24/2024 4:11 AM EDT [facility] Basophils Absolute 0.02 0.00 - 0.10 10*3/uL LAB HEMATOLOGY METHOD 07/24/2024 4:11 AM EDT [facility] Immature Granulocytes Absolute 0.04 0.00 - 0.06 10*3/uL LAB HEMATOLOGY METHOD 07/24/2024 4:11 AM EDT [facility] Blood Venous blood specimen / Unknown Venipuncture / Unknown 07/24/2024 4:06 AM EDT 07/24/2024 4:08 AM EDT Narrative [facility] - 07/24/2024 4:11 AM EDT Therapeutic decision making should be based on absolute values, rather than percentages. us Elliot Frankel MD LAB BLOOD ORDERABLES Final Res ult Performing Organization Address City/[facility]/ZIP Co de Phone Number [facility] [address] [place] [address] * Magnesium, Plasma (07/24/2024 4:06 AM EDT) Magnesium, Plasma 2.0 1.9 - 2.4 mg/dL 07/24/2024 4:50 AM EDT [facility] Blood Venous blood specimen / Unknown Venipuncture / Unknown 07/24/2024 4:06 AM EDT 07/24/2024 4:19 AM EDT us Elliot Frankel MD LAB BLOOD ORDERABLES Final Res ult Performing Organization Address [facility] Co de Phone Number [facility] [address] [place] [address] * Phosphorus, Plasma (07/24/2024 4:06 AM EDT) Phosphorus, Plasma 3.3 2.5 - 4.5 mg/dL 07/24/2024 4:50 AM EDT [facility] Blood Venous blood specimen / Unknown Venipuncture / Unknown 07/24/2024 4:06 AM EDT 07/24/2024 4:19 AM EDT us Elliot Frankel MD LAB BLOOD ORDERABLES Final Res ult Performing Organization Address [facility] [place] [address] * (ABNORMAL) Comprehensive Metabolic Panel, Plasma (07/24/2024 4:06 AM EDT) Glucose, Plasma 100(H) 74 - 99 mg/dL 07/24/2024 4:50 AM EDT [facility] BUN, Plasma 14 8 - 23 mg/dL 07/24/2024 4:50 AM EDT [facility] Creatinine, Plasma 1.15 0.70 - 1.20 mg/dL 07/24/2024 4:50 AM EDT [facility] BUN/Creatinine Ratio 12 07/24/2024 4:50 AM EDT [facility] Sodium, Plasma 138 136 - 145 mmol/L 07/24/2024 4:50 AM EDT [facility] Potassium, Plasma 4.1 3.6 - 4.9 mmol/L 07/24/2024 4:50 AM EDT [facility] Chloride, Plasma 102 97 - 107 mmol/L 07/24/2024 4:50 AM EDT [facility] CO2, Plasma 26 22 - 29 mmol/L 07/24/2024 4:50 AM EDT [facility] Anion Gap 10 6 - 16 mmol/L 07/24/2024 4:50 AM EDT [facility] Total Calcium, Plasma 9.3 8.9 - 10.2 mg/dL 07/24/2024 4:50 AM EDT [facility] Total Protein 6.3 6.3 - 7.9 g/dL 07/24/2024 4:50 AM EDT [facility] Albumin, Plasma 3.4(L) 3.5 - 5.2 g/dL 07/24/2024 4:50 AM EDT [facility] AST, Plasma 31 10 - 50 U/L 07/24/2024 4:50 AM EDT [facility] ALT, Plasma 29 10 - 50 U/L 07/24/2024 4:50 AM EDT [facility] Alkaline Phosphatase, Plasma 91 40 - 115 U/L 07/24/2024 4:50 AM EDT [facility] Total Bilirubin, Plasma <0.2(L) 0.2 - 1.1 mg/dL 07/24/2024 4:50 AM EDT [facility] eGFRcr 72.9 mL/min/1.7 3m*2 07/24/2024 4:50 AM EDT [facility] Comment:Reported eGFRcr in m L/min/1.73m2 is based the CKD-EPI 2020 equation that does not use a race coefficient. Blood Venous blood specimen / Unknown Venipuncture / Unknown 07/24/2024 4:06 AM EDT 07/24/2024 4:19 AM EDT us Elliot Frankel MD LAB BLOOD ORDERABLES Final Res ult Performing Organization Address [facility] [place] [address] * Creatinine, urine, random (07/23/2024 10:59 PM EDT) Creatinine, Urine 16 mg/dL 07/23/2024 11:46 PM EDT [facility] Urine Urine specimen obtained by clean catch procedure / Unknown Non-blood Collection / Unknown 07/23/2024 10:59 PM EDT 07/23/2024 11:14 PM EDT Tomasz Pedraza DO LAB URINE ORDERABLES Final Res ult Performing Organization Address [facility] de Phone Number [facility] [address] [place] [address] * Sodium, urine, random (07/23/2024 10:59 PM EDT) Sodium, Urine 22 mmol/L 07/23/2024 11:46 PM EDT [facility] Urine Urine specimen obtained by clean catch procedure / Unknown Non-blood Collection / Unknown 07/23/2024 10:59 PM EDT 07/23/2024 11:14 PM EDT Tomasz Pedraza DO LAB URINE ORDERABLES Final Res ult Performing Organization Address [facility] de Phone Number [facility] [address] [place] [address] * (ABNORMAL) Urine culture- (clean catch) (07/23/2024 3:36 PM EDT) Culture 10,000 - 100,000 CFU/mL Enterococcus faecalis(A) JENNY 07/26/2024 10:31 AM EDT [facility] Comment: This isolate has been identified using the FDA Approved [employer] [place] System Edited result: Previously reported as [...] MICROBIOLOGY - GENERAL ORDER NAHEED Final Result [facility] [address] [place] [address] * CT Abdomen Pelvis w IV Contrast [...] Vladimir Flores MD on 07/23/2024 2:40 PM us Benny Joy MD IMG CT PROCEDURES Fin al Result * Urinalysis Microscopic Examination (07/23/2024 1:38 PM EDT) Urine Urine specimen obtained by clean catch procedure / Unknown Non-blood Collection / Unknown 07/23/2024 1:38 PM EDT 07/23/2024 1:41 PM EDT us Benny Joy MD LAB URINE ORDERABLES Final Result [facility] [address] [place] [address] * (ABNORMAL) Urinalysis with reflex microscopic (Culture NOT Included) (07/23/2024 1:38 PM EDT) Color, Urine Dark Yellow LAB URINALYSIS - AUTOMATED METHOD 07/23/2024 2:14 PM EDT [facility] Clarity, Urine Clear LAB URINALYSIS - AUTOMATED METHOD 07/23/2024 2:14 PM EDT [facility] Spec [place], Urine 1.008 1.005 - 1.030 LAB URINALYSIS - AUTOMATED METHOD 07/23/2024 2:14 PM EDT [facility] pH, Urine 6.5 5.0 - 8.0 LAB URINALYSIS - AUTOMATED METHOD 07/23/2024 2:14 PM EDT [facility] Protein, Urine 100(A) Negative mg/dL LAB URINALYSIS - AUTOMATED METHOD 07/23/2024 2:14 PM EDT [facility] Glucose, Urine Negative Negative mg/dL LAB URINALYSIS - AUTOMATED METHOD 07/23/2024 2:14 PM EDT [facility] Ketones, Urine Negative Negative mg/dL LAB URINALYSIS - AUTOMATED METHOD 07/23/2024 2:14 PM EDT [facility] Blood, Urine Moderate(A) Negative LAB URINALYSIS - AUTOMATED METHOD 07/23/2024 2:14 PM EDT [facility] Bilirubin, Urine Negative Negative LAB URINALYSIS - AUTOMATED METHOD 07/23/2024 2:14 PM EDT [facility] Urobilinogen, Urine 1.0 0.2 to 1.0 mg/dL LAB URINALYSIS - AUTOMATED METHOD 07/23/2024 2:14 PM EDT [facility] Leukocytes, Urine Trace(A) Negative LAB URINALYSIS - AUTOMATED METHOD 07/23/2024 2:14 PM EDT [facility] Nitrite, Urine Positive(A) Negative LAB URINALYSIS - AUTOMATED METHOD 07/23/2024 2:14 PM EDT [facility] RBC, Urine 4 - 10(A) 0 to 3 /HPF LAB URINALYSIS - AUTOMATED METHOD 07/23/2024 2:14 PM EDT [facility] Comment:This result was prev iously suppressed from the chart. WBC, Urine 0 - 5 0 to 5 /HPF LAB URINALYSIS - AUTOMATED METHOD 07/23/2024 2:14 PM EDT [facility] Comment:This result was prev iously suppressed from the chart. Squamous Epithelial Cells 0 - 2 0 to 5 /HPF LAB URINALYSIS - AUTOMATED METHOD 07/23/2024 2:14 PM EDT [facility] Comment:This result was prev iously suppressed from the chart. Hyaline Casts 0 - 2 0 to 5 /LPF LAB URINALYSIS - AUTOMATED METHOD 07/23/2024 2:14 PM EDT [facility] Comment:This result was prev iously suppressed from the chart. Bacteria, Urine Negative Negative LAB URINALYSIS - AUTOMATED METHOD 07/23/2024 2:14 PM EDT [facility] Comment: Verified by manual microscopic. Specimen color or other interfering substances may cause false positive nitrite. This result was previously suppressed from the chart. Renal Tubular Cells Present Absent 07/23/2024 2:14 PM EDT [facility] Comment:This result was prev iously suppressed from the chart. Urine Urine specimen obtained by clean catch procedure / Unknown Non-blood Collection / Unknown 07/23/2024 1:38 PM EDT 07/23/2024 1:41 PM EDT Narrative [facility] - 07/23/2024 2:14 PM EDT Performed by manual method us Benny Joy MD LAB URINE ORDERABLES Final Result [facility] [address] [place] [address] * (ABNORMAL) Magnesium (07/23/2024 11:55 AM EDT) Magnesium, Plasma 1.8(L) 1.9 - 2.4 mg/dL 07/23/2024 12:25 PM EDT [facility] Blood Venous blood specimen / Unknown Venipuncture / Unknown 07/23/2024 11:55 AM EDT 07/23/2024 11:58 AM EDT us Tanna Heller LAB BLOOD ORDERABLES Final Resul t Performing Organization Address City/[facility]/ZIP Co de Phone Number [facility] [address] [place] [address] * Lactic acid, venous (07/23/2024 11:55 AM EDT) Lactate, Venous, Whole Blood 1.7 0.5 - 2.2 mmol/L LAB HEMATOLOGY METHOD 07/23/2024 11:59 AM EDT [facility] Blood Venous blood specimen / Unknown Venipuncture / Unknown 07/23/2024 11:55 AM EDT 07/23/2024 11:58 AM EDT us Benny Joy MD LAB BLOOD ORDERABLES Final Result Performing Organization Address [facility] [place] [address] * Phosphorus (07/23/2024 11:55 AM EDT) Phosphorus, Plasma 2.6 2.5 - 4.5 mg/dL 07/23/2024 12:25 PM EDT [facility] Blood Venous blood specimen / Unknown Venipuncture / Unknown 07/23/2024 11:55 AM EDT 07/23/2024 11:58 AM EDT us Benny Joy MD LAB BLOOD ORDERABLES Final Result Performing Organization Address City/[facility] Co de Phone Number [facility] [address] [place] [address] * (ABNORMAL) CBC w/diff (07/23/2024 11:55 AM EDT) [facility] WBC Count 14.74(H) 3.70 - 10.30 10*3/uL LAB HEMATOLOGY METHOD 07/23/2024 12:01 PM EDT [facility] RBC Count 4.20(L) 4.60 - 6.10 10*6/uL LAB HEMATOLOGY METHOD 07/23/2024 12:01 PM EDT [facility] HGB 10.9(L) 13.7 - 17.5 g/dL LAB HEMATOLOGY METHOD 07/23/2024 12:01 PM EDT [facility] HCT 32.8(L) 40.0 - 51.0 % LAB HEMATOLOGY METHOD 07/23/2024 12:01 PM EDT [facility] Platelet Count 243 155 - 369 10*3/uL LAB HEMATOLOGY METHOD 07/23/2024 12:01 PM EDT [facility] MCV 78(L) 79 - 98 fL LAB HEMATOLOGY METHOD 07/23/2024 12:01 PM EDT [facility] MCH 26.0 26.0 - 32.0 pg LAB HEMATOLOGY METHOD 07/23/2024 12:01 PM EDT [facility] MCHC 33.2 30.7 - 35.5 g/dL LAB HEMATOLOGY METHOD 07/23/2024 12:01 PM EDT [facility] RDW 14.9(H) 11.5 - 14.5 % LAB HEMATOLOGY METHOD 07/23/2024 12:01 PM EDT [facility] MPV 9.5 8.8 - 12.5 fL LAB HEMATOLOGY METHOD 07/23/2024 12:01 PM EDT [facility] nRBC 0.0 <=0.0 per 100 WBCs LAB HEMATOLOGY METHOD 07/23/2024 12:01 PM EDT [facility] Differential Type Automated LAB HEMATOLOGY METHOD 07/23/2024 12:01 PM EDT [facility] Neutrophils % 85 % LAB HEMATOLOGY METHOD 07/23/2024 12:01 PM EDT [facility] Lymphocytes % 8 % LAB HEMATOLOGY METHOD 07/23/2024 12:01 PM EDT [facility] Monocytes % 6 % LAB HEMATOLOGY METHOD 07/23/2024 12:01 PM EDT [facility] Eosinophils % 0 % LAB HEMATOLOGY METHOD 07/23/2024 12:01 PM EDT [facility] Basophils % 0 % LAB HEMATOLOGY METHOD 07/23/2024 12:01 PM EDT [facility] Immature Granulocytes % 1 % LAB HEMATOLOGY METHOD 07/23/2024 12:01 PM EDT [facility] Neutrophils Absolute 12.58(H) 1.60 - 6.10 10*3/uL LAB HEMATOLOGY METHOD 07/23/2024 12:01 PM EDT [facility] Lymphocytes Absolute 1.15(L) 1.20 - 3.90 10*3/uL LAB HEMATOLOGY METHOD 07/23/2024 12:01 PM EDT [facility] Monocytes Absolute 0.93(H) 0.30 - 0.90 10*3/uL LAB HEMATOLOGY METHOD 07/23/2024 12:01 PM EDT [facility] Eosinophils Absolute 0.00 0.00 - 0.50 10*3/uL LAB HEMATOLOGY METHOD 07/23/2024 12:01 PM EDT [facility] Basophils Absolute 0.01 0.00 - 0.10 10*3/uL LAB HEMATOLOGY METHOD 07/23/2024 12:01 PM EDT [facility] Immature Granulocytes Absolute 0.07(H) 0.00 - 0.06 10*3/uL LAB HEMATOLOGY METHOD 07/23/2024 12:01 PM EDT [facility] Blood Venous blood specimen / Unknown Venipuncture / Unknown 07/23/2024 11:55 AM EDT 07/23/2024 11:58 AM EDT Narrative [facility] - 07/23/2024 12:01 PM EDT Therapeutic decision making should be based on absolute values, rather than percentages. us Benny Joy MD LAB BLOOD ORDERABLES Final Result [facility] [address] [place] [address] * (ABNORMAL) CMP (07/23/2024 11:55 AM EDT) Glucose, Plasma 115(H) 74 - 99 mg/dL 07/23/2024 12:25 PM EDT [facility] BUN, Plasma 17 8 - 23 mg/dL 07/23/2024 12:25 PM EDT [facility] Creatinine, Plasma 1.43(H) 0.70 - 1.20 mg/dL 07/23/2024 12:25 PM EDT [facility] BUN/Creatinine Ratio 12 07/23/2024 12:25 PM EDT [facility] Sodium, Plasma 129(L) 136 - 145 mmol/L 07/23/2024 12:25 PM EDT [facility] Potassium, Plasma 4.9 3.6 - 4.9 mmol/L 07/23/2024 12:25 PM EDT [facility] Chloride, Plasma 93(L) 97 - 107 mmol/L 07/23/2024 12:25 PM EDT [facility] CO2, Plasma 23 22 - 29 mmol/L 07/23/2024 12:25 PM EDT [facility] Anion Gap 13 6 - 16 mmol/L 07/23/2024 12:25 PM EDT [facility] Total Calcium, Plasma 9.6 8.9 - 10.2 mg/dL 07/23/2024 12:25 PM EDT [facility] Total Protein 7.2 6.3 - 7.9 g/dL 07/23/2024 12:25 PM EDT [facility] Albumin, Plasma 4.0 3.5 - 5.2 g/dL 07/23/2024 12:25 PM EDT [facility] AST, Plasma 40 10 - 50 U/L 07/23/2024 12:25 PM EDT [facility] ALT, Plasma 37 10 - 50 U/L 07/23/2024 12:25 PM EDT [facility] Alkaline Phosphatase, Plasma 110 40 - 115 U/L 07/23/2024 12:25 PM EDT [facility] Total Bilirubin, Plasma <0.2(L) 0.2 - 1.1 mg/dL 07/23/2024 12:25 PM EDT [facility] eGFRcr 56.1 mL/min/1.7 3m*2 07/23/2024 12:25 PM EDT [facility] Comment:Reported eGFRcr in m L/min/1.73m2 is based the CKD-EPI 2020 equation that does not use a race coefficient. Blood Venous blood specimen / Unknown Venipuncture / Unknown 07/23/2024 11:55 AM EDT 07/23/2024 11:58 AM EDT Benny Joy MD LAB BLOOD ORDERABLES Final Result [facility] [address] [place] [address] documented in this encounter Visit Diagnoses Diagnosis [...] STAT 1912 (New Bag - Provider: Olga Johnston)194 (Stopped - Provider: Olga Johnston) dronabinol (Marinol) capsule 5 mg 5 mg, Oral, 2 times daily before meals, First dose on Fri07/24/24 at 0800, Until Discontinued, Routine 07 (Given - Provid er: Shae Love RN) fluticasone (Flonase) nasal spray 1 spray 1 spray, Each Nostril, Daily, First dose on Fri07/23/24 at 1920, Until Discontinued, Routine 1937 (Given - Provider: Olga Johnston) 0815 (Given - Provider: Shae Love RN) gabapentin (Neurontin) capsule 800 mg 800 mg, Oral, 3 times daily, First dose on Fri07/23/24 at 2100, Until Discontinued 2139 (Given - Provider: Jewel Arreola RN) 0815 [...] Arreola RN) 0812 (Given - Provider: Shae Love RN) morphine PF 4 mg (COMPLETED) 4 mg, Intravenous, Once, 1 dose, On Fri07/23/24 at 1230, STAT 1302 (Given - Provider: Hua Ledezma RN) morphine PF 4 mg (COMPLETED) 4 mg, Intravenous, Once, 1 dose, On Fri07/23/24 at 1600, STAT 1609 (Given - Provider: Hua Ledezma RN) morphine PF 4 mg (COMPLETED) 4 mg, Intravenous, Once, 1 dose, On Fri07/23/24 at 1920, STAT 193 (Given - Provider: Olga Johnston) OLANZapine (ZyPREXA) [...] 1 dose, On Fri07/23/24 at 1825, STAT 183 (Given - Provider: Hua Ledezma RN) oxyCODONE [...] Olga Johnston) 0815 (Given - Provider: Shae Love, GIN) polyethylene glycol (Miralax) packet 17 g 17 g, Oral, Daily, First dose on Fri07/23/24 at 1920, Until Discontinued 1938 (Given - Provider: Olga Johnston) 0815 (Given - Provider: Shae Love, GIN) sodium chloride 0.9 % flush 10 mL(Linked Group 1) 10 mL, Intravenous, Every 12 hours, First dose on Fri07/23/24 at 1905, Until Discontinued, Routine 191 (Given - Provider: Olga Johnston) 0648 (Given - Provider: Chris Ortiz) tamsulosin (Flomax) 24 hr capsule 0.4 mg 0.4 mg, Oral, Daily, First dose on Fri07/23/24 at 1920, Until Discontinued, Routine 193 (Given - Provider: Olga Johnston) 0815 (Given - Provider: Shae Love, GIN) Continuous Medication Order 07/22/2024 07/23/2024 07/24/2024 lactated Ringer's infusion 120 mL/hr, Intravenous, Continuous, Starting on Fri07/23/24 at 2015, Until 07/24/24 at 0906, Routine 2106 (New Bag - Provider: Olga Johnston) 0916 (Stopped - Provider: Shae Love, GIN) PRN Medication Order 07/22/2024 07/23/2024 07/24/2024 ondansetron [...] documented as of this encounter Care Teams Wound Nurse Relationship Specialty Start Date End Date Efren Roy DO [address] [place] [id number] PCP - General 03/04/23 Efren Roy DO [address] [place] [id number] Pain Medicine 01/03/23 Rosa Maria Beltran APRN [address] [facility] [address] [place] [address] Nurse Practitioner Family Medicine 07/21/23 Bobby Vazquez MD [address] [facility] [facility] Saurav [address] [place] [id number] Consulting Physician Medical Oncology 09/17/23 Cally Henderson PA [address] [id number] Physician Postal Clerk Urology 09/17/23 documented as of this encounter
--- OUTSIDE RECORDS SUMMARY | 2024-07-27 18:26 | XMS_ITS | Encounter Summary ---
Author Organization Healthcare Address [address] [place] [address] Care Team Providers Care Consulting Services Manager Name Role Phone Efren Roy DO Unavailable [phone] Efrne Roy DO Primary Care Provider [phone] Rosa Maria Beltran APRN Unavailable [phone] Bobby Vazquez MD Unavailable Cally Henderson Unavailable [phone] Reason for Visit * Reason Comments Abdominal Pain Constipation * Auth/Cert (Routine) Specialty Diagnoses / Procedures Referred By Contac t Referred To Contact Diagnoses Hydronephrosis Hydronephrosis with renal and ureteral calculus obstruction Hydronephrosis, unspecified hydronephrosis type Adal Franklin MD [address] [facility] [address] [place] [address] Phone: tel: fax: [facility] [address] [place] [address] Phone: tel: Referral ID Status Reason Start Date Expiration Date Visits Re quested Visits Authorized [id number] 1 1 Encounter Details Date Type Department Care Team (Late st Contact Info) Description 07/27/2024 6:26 PM EDT - 07/28/2024 3:44 PM EDT Hospital Encounter [facility] [address] [place] [address] Jin Clark MD [address] [place] [address] Lincoln Arnold MD [address] [place] [address] Adal Franklin MD [address] [facility] [address] [place] [address] Hydronephrosis with renal and ureteral calculus obstruction (Primary Dx); Hydronephrosis, unspecified hydronephrosis type Discharge Disposition: Home or Self Care Social [...] Date Recorded Patient Health Questionnaire-2 Score 0 08/06/2024 Hunger Vital Sign Answer Date Recorded Within [...] place to sleep or slept in a group home (including now)? No 02/28/2023 PHQ-9 Answer [...] any time in the past 12 m [facility], were you homeless or living in a group home (including now)? No 05/27/2024 CAGE ASSESSMENT [...] drink first t tianna in the morning (EYE-SUPERINTENDENT DRILLING) to steady your nerves or to get [...] Sign Reading Time Taken Comments Blood Pressure 108/60 07/28/2024 2:45 PM EDT Pulse 81 07/28/2024 2:45 PM EDT Temperature 36.7 C (98 F) 07/28/2024 2:15 PM EDT Respiratory Rate 15 07/28/2024 2:45 PM EDT Oxygen Saturation 97% 07/28/2024 2:45 PM EDT Inhaled Oxygen Concentration - - Weight 80.7 kg (178 lb) 07/27/2024 6:33 PM EDT Height 177.8 cm (5' 10 ) 07/27/2024 6:33 PM EDT Body Mass Index 25.54 07/27/2024 6:33 PM EDT documented in this encounter Functional Status * Calculated C-SSRS Risk Score (Lifetime/Recent) Answer Date of Assessment Author No Risk Indicated 07/28/2024 10:43 AM EDT Makayla Eagle RN * Question Answer Date of Assessment Author 1. Wish to be (Past 1 Month) No 025 10:43 AM EDT Makayla Burden RN 2. Non-Specific Active Suici katie Thoughts (Past 1 Month) No 07/28/2024 10:43 AM EDT Miguel Burden RN 6. Suicidal Behavior (Lifetime) No 10:43 AM EDT Makayla Burden RN documented as of this encounter Discharge Instructions * Discharge Instructions* Efren Knight MD - 07/28/2024 2:41 PM EDT Urology Discharge Instructions: Continue ureteral stent Precautions: - You have received sedation/anesthesia today. You may not drive, drink alcohol, or do anything that requires a clear head for the next 24 hours. Medications: - You may take 200mg phenazopyridine (Pyridium) up to three times daily for stent and bladder discomfort. This medication will make your urine turn orange. - You may take 500mg Tylenol every 6 hours for mild - moderate pain. You may take up to 1000mg every 6 hours but do not take more than 4000mg in a day. - You may also take 600mg ibuprofen (if you normally are able to) every 6 hours for mild-moderate pain. - You may resume your previous medications unless otherwise instructed. Nutrition: - You may resume your normal diet as tolerated, focusing on liquids to keep yourself hydrated. Activity: - You may resume normal physical activity as tolerated - You may not drive for 24 hours after surgery Potential Issues: - It is normal to have some mild bladder, abdominal, or flank discomfort as well as some urinary frequency and discomfort with voiding - Call the office if you have a fever greater than 101 F - Call the office if you have severe abdominal discomfort, nausea and vomiting, or feeling unwell Follow Up: - You will not require surgery in 08/2024 as previously scheduled. We will call you to coordinate follow up with Dr. Franklin in 4 months to discuss repeat ureteral stent exchange. Questions or Concerns and Appointments (physicians work at both clinics so confirm your location ahead of your appointment) [facility] Urology Department Clinic at [address], [address], [facility], [address] [place] [address] Clinic After Hours [facility] Office Building Urology Clinic [address] [facility] [address] [place] [address] Clinic After Hours documented in this encounter Medications at Time [...] by mouth 2 (two) times a day. [address]2837 mL 5 06/16/2024 ondansetron ODT (Zofran-ODT) 4 [...] time each day. 30 tablet 3 05/28/2023 phenazopyridine (Pyridium) 200 MG tablet Take 1 tablet by mouth 3 times a day as needed for pain, discomfort or irritation for up to 3 days. 10 tablet 07/28/2024 5 amoxicillin (Amoxil) 500 MG capsuleIndications: Acute cystitis without hematuria Take 1 capsule by mouth 3 times a day for 10 days. 30 capsule 07/27/2024 5 cefadroxil (Duricef) 500 MG capsuleIndications: Acute cystitis without hematuria Take 2 capsules by mouth 2 times a day for 10 days. 40 capsule 07/24/2024 5 lactulose (Kristalose) 10 g packetIndications:M alignant neoplasm of urinary bladder, unspecified site (CMS/HCC) Take 1 packet by mouth 3 times a day. 90 packet 07/27/2024 5 OLANZapine (ZyPREXA) 10 MG tablet Take [...] needed for anxiety. 30 capsule 02/27/2024 5 Tirosint 125 MCG capsule Take 1 capsule by mouth daily before breakfast. 90 capsule 06/18/2024 5 documented as of this encounter Miscellaneous Notes * Odessa Ames RN - 07/28/2024 2:30 PM EDT Images from the original note were not included. 68 Cystoscopy Discharge Instructions () Cystoscopy is a test that lets your doctor look inside your bladder. If you have stones, they may be removed during the cystoscopy. Home care ?? If you have back pain or bladder spasms, warm tub baths (no bubbles) may help it go away. ?? You may see some blood in your urine. If so, it will look pink. This should go away within 48 hours. ?? Drink 6 to 8 glasses of liquid each day. Limit the amount of caffeine. ?? You may feel like resting more after surgery. Slowly start to do more each day. Rest when you feel it?s needed. Call your doctor if you have any of the following ?? Temperature over 101.5??F or any other sign or symptom of infection ?? Trouble passing urine ?? Clots of blood in urine You can call the Urology Clinic at . Nights, weekends and holidays, call [facility] at and ask for the Urology Resident technical solutions engineer. Call [phone] if you have any of the following ?? A lot of pain or vomiting ?? Urine becomes bright martinez red or has many clots of blood in it ?? Shaking chills ?? A large amount of bleeding ?? Cannot urinate for 10 to 12 hours and have lower abdominal pain or bloating * Anesthesia PACU Signout - Gilma Mcdonald DO - 07/28/2024 2:22 PM EDT Patient: Adrián Goode Anesthesia Type: general Vitals Value Taken Time BP 106/58 07/28/24 14:15 Temp 36.7 ??C (98.1 ??F) 07/28/24 13:44 Pulse 89 07/28/24 14:21 Resp 13 07/28/24 14:21 SpO2 94 % 07/28/24 14:21 Vitals shown include unfiled device data. Anesthesia PACU Signout Patient location during evaluation: PACU Patient participation: complete - patient participated Level of consciousness: baseline and awake Pain management: adequate (pain score 0-3) Airway patency: natural airway Hydration status: stable PONV: none Cardiovascular status: hemodynamically stable and blood pressure returned to baseline Respiratory status: spontaneous ventilation, unassisted, nonlabored ventilation and room air Discharge Disposition: home Cosigned by Nanda Arce MD at 07/28/2024 2:37 PM EDT Associated attestation - Nanda Arce MD - 07/28/2024 2:37 PM EDT Agree with above assessment and evaluation from resident/COMMUNITY ARTS OFFICER. * Op Note - Efren Knight MD - 07/28/2024 1:22 PM EDT Operative Note Date: 07/28/24 Location: [facility] Name: Adrián Goode, : 1965, Diagnoses: Pre-op Diagnosis Hydronephrosis with renal and ureteral calculus obstruction Post-op Diagnosis Hydronephrosis with renal and ureteral calculus obstruction Procedure(s): Cystoscopy with right retrograde pyelogram Right ureteral stent exchange Attending Surgeon(s): * Gloria Velasquez - Primary Inside Sales Account Representative(s): * Efren Knight MD - Resident - Assisting Anesthesia: General ASA: III Blood Administration: Blood Product Administration History Date Volume Status Transfuse RBC 04/05/2023 1000 mL Completed 04/05/232006 Estimated Blood Loss: Minimal Drains: * None in log * Implants Type Name Action Serial No. Stent STENT URETERAL TRIA FIRM MONOFILAMENT 7F/26CM - [id number] Implanted Specimen: Specimens ID Source Frozen? A Kidney, Right Description: Right kidney urine for culture Findings: Cystoscopy without mass, tumor, or lesion. Bullous edema noted around right ureteral orifice with ureteral stent in place Right retrograde pyelogram with dilated collecting system, urine sent for culture Right ureteral stent (7Fr x26CM Tria) exchanged with some resistance in the mid ureter Indications: Adrián Goode is a 59 y.o. male with hx of UTUC of right distal ureter and retroperitoneal and pelvic LAD causing right ureteral obstruction. He was admitted to the hospital with rightflank pain and hydronephrosis with sent in place. After a discussion of risks and benefits he elected to proceed to the OR for cystoscopy with right ureteral stent exchange. Narrative: After informed consent was obtained, the patient was brought into the surgical suite. The patient was placed in the dorsal lithotomy position. General anesthesia was administered, SCDs were placed onthe patient and preoperative antibiotics were administered prior to the start of the case. A 21 Fr rigid cystoscope was introduced into the patient's urethral meatus and advanced into the urinary bladder. The bladder was examined and did not have any masses or stones. Bullous edema was noted near the right ureteral orifice in the setting of indwelling stent. The ureteral stent was seen extruding from the right ureteral orifice. A sensor wire was advanced alongside the stent and up to the mid ureter were resistance was met. A 5Fr open ended ureteral cathter was advanced over the wire and past the point of resistance under fluoroscopy allowing the wire to be advanced into the right collecting system. The distal end of the stent was grasped and it was removed in its entirety. Right renal pelvis urine was collected and sent for culture. A retrograde pyelogram was performed showing a dilated collecting system. A 7 Fr x 26 cm Tria stent without strings was placed with some resistance at the mid ureter. The patient tolerated the procedure well and was awakened from anesthesia without difficulty. Dr. Velasquez was present for the entirety of the procedure. Postoperative Plan: The patient will follow up in 4 months to discuss repeat stent change. He will be discharged home when meeting PACU goals of care. Surgery in 08/2024 will be cancelled. There were NO signs of surgical site infection (SSI) present at the time of surgery (PATOS). Complications: None; patient tolerated the procedure well. Submitted by: Efren Knight MD - 07/28/2024 Cosigned by Gloria Velasquez MD at 07/29/2024 1:42 PM EDT Associated attestation - Gloria Velasquez MD - 07/29/2024 1:42 PM EDT I was present for the entirety of the procedure(s). * Significant Event - Jin Olivas DO - 07/28/2024 6:26 AM EDT Patient to OR today for cystoscopy and right ureteral stent exchange - No significant change in HPI - Risks and benefits were discussed with the patient including but not limited to bleeding, infection, damage to surrounding structures, need for further procedures, anesthesia risks, blood clot, embolism, stroke, and heart attack. - Patient verbally expressed agreement. Written consent obtained and placed in the patient's chart - NPO since midnight Anish Olivas DO PGY-3, Department of Urology Pager: [phone] Cosigned by Gloria Velaqsuez MD at 07/28/2024 12:51 PM EDT Associated attestation - Gloria Velasquez MD - 07/28/2024 12:51 PM EDT I saw and evaluated the patient. I discussed the case with the resident/fellow and agree with the findings and plan as documented. Gloria Velasquez MD * H&P - German Franklin MD - 07/27/2024 11:42 PM EDTAssociated Order(s): Consult to Urology Consult to Urology Consult performed by: German Franklin MD Consult ordered by: Jin Clark MD [facility] Urology Consult Note 07/27/24 Service Requesting Consultation: EM CC: flank pain, n/v HPI: Adrián Goode is a 59 y.o. 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 He has right ureteral obstruction due to UTUC/bulky richelle disease, last exchanged in January. He is scheduled for his next exchange 08/27. He recently presented to the ED on 07/23/24 with a three day history of N/V with difficulty urinating. At the time, he had an CARLOS that was thought to be related to dehydration and evidence of UTI. He was given fluids and had improvement in labs and symptoms so was discharged from ED obs 07/24. He re- presents today with similar complaints. He has had right flank pain, nausea, and reduced urine output. He denies vomiting, fevers, dysuria, hematuria, CP, or SOB. He has had improvement in urine output and pain since receiving fluids in ED. Of note, he was discharged from ED on 07/24 with Cefadroxil, but notified of urine culture results and transitioned to Amoxicillin today. From a cancer perspective, he was initially [...] to receive his first infusion of docetaxal 07/23, but he was unable to receive it dueto his symptoms. Past Medical History: Medical History[1] Past Surgical History:: Surgical History[2] Family History: Family History[3] Social History: Social History[4] PHYSICAL EXAM: Temp: [36.8 ??C (98.3 ??F)-36.9 ??C (98.5 ??F)] 36.9 ??C (98.5 ??F) Heart Rate: [83-110] 98 Resp: [12-24] 13 BP: (81-101)/(53-68) 94/67 SpO2: [96 %-100 %] 98 % No intake/output data recorded. I/O this shift: In: 100 [IV Piggyback:100] Out: - GEN: NAD HEENT: NCAT, EOMI RESP: Equal bilateral chest rise, normal work of breathing CV: Appears well perfused ABD: Soft, nontender, nondistended, right CVAT EXT: No gross deformities MSK: Normal ROM in BL UE NEURO: No focal deficits, AOx3 PSYCH: Appropriate mood and affect LABS: Results from last 7 days Lab Units 07/27/24 1850 WBC 10*3/uL 9.93 HEMOGLOBIN g/dL 10.5* HEMATOCRIT % 32.2* PLATELETS 10*3/uL 249 Results from last 7 days Lab Units 07/27/24 1850 SODIUM mmol/L 131* POTASSIUM mmol/L 4.1 CHLORIDE mmol/L 95* CO2 mmol/L 23 BUN mg/dL 11 CREATININE mg/dL 1.16 EGFR mL/min/1.73m*2 72.1 GLUCOSE mg/dL 100* CALCIUM mg/dL 9.2 Results from last 7 days Lab Units 07/27/24 1951 COLOR UA Dark Yellow SPEC GRAV U 1.008 PH UA 7.0 PROTEIN UR mg/dL 100* GLUCOSE UA mg/dL Negative KETONES UA mg/dL Negative LEUKOCYTES UA Small* NITRITE UA Positive* RBC, URINE /HPF 3 WBC, URINE /HPF 0 - 5 SQUAMOUS /HPF 0 - 2 BACTERIA UR HPF Present Results from last 7 days Lab Units 07/23/24 1536 URINE CULTURE 10,000 - 100,000 CFU/mL Enterococcus faecalis* Imaging: I personally reviewed the following imaging: - CT abd/pel 07/27, compared to 07/23 and 07/14: right ureteral stent in appropriate position with hydronephrosis gradually increasing on imaging over the last two weeks, mildly distended bladder with some surrounding stranding, similar LAD compared to prior exams Hospital Problem List: Active Problems: There are no active Hospital Problems. Assessment: Adrián Goode is a 59 y.o. male with hx of UTUC of right distal ureter and retroperitoneal and pelvic LAD causing right ureteral obstruction. This is managed with indwelling stent, lastexchanged 02/2024. Patient is due for next exchange 08/27. This is his second presentation to ED in last week for flank pain, nausea, and poor UOP. At visit 07/23, he had CARLOS that improved with fluid resuscitation and UTI. He was prescribed Cefadroxil at that time as well, however, urine culture resulted as E. Faecalis which is not covered by that. He was called and prescribed amoxicillin today. Here-presented with similar symptoms. He is afebrile and HDS. He was a little hypotensive upon arrival, but that improved with fluids. He does not have leukocytosis and Cr is normal. UA consistent withindwelling stent vs persistent UTI. Imaging does show slight worsening of right hydro with each setof scans from 07/14 to 07/23 to today. Discussed with patient that we would recommend stent exchange sooner than 08/27. If he is feeling well enough to go home tonight, we could reschedule this as an outpatient sooner or he could stay for continued fluids and pain control with plans to add him on while here. Patient elected for stent exchange while inpatient. It has been 6 mo since last stent exchange so it is reasonable to believe that his syx will improvewith an exchange. However, given progression of disease, did discuss very small possibility of overall stent failure in which case he may need a nephrostomy tube in the future. He expressed understanding. Plan: - admit to uro obs - npo at al - to OR for cysto, right stent exchange as TSA; paper consent obtained and placed in chart - mIVF - Unasyn based on ucx from 07/23 which grew sung-sensitive E. faecalis - resume home meds as appropriate - SQH for DVT PPX Komal Franklin MD PGY-3 Urology [1] Past Medical History: Diagnosis Date Acute kidney failure, unspecified ([facility]) 02/28/2023 Adverse effect of anesthesia aspirated during colonoscopy few yrs. ago - also DDD cervical area Bladder cancer ([facility]) 12/2022 Cancer ([facility]) thyroid - surgery only Cervicalgia Neck pain [...] Procedure Laterality Date COLONOSCOPY PORTACATH PLACEMENT Right CA CYSTO/URETERO/PYELOSCOPY, DX Right 12/20/2022 Procedure: DIAGNOSTIC URETEROSCOPY; Surgeon: Sunday Lopez MD; Location: [facility]; Service: Urology THYROID SURGERY N/A [facility] UPPER GASTROINTESTINAL ENDOSCOPY [3] Family History Problem [...] use Cosigned by Adal Franklin MD at 07/29/2024 1:26 PM EDT Associated attestation - Adla Franklin MD - 07/29/2024 1:26 PM EDT I saw and evaluated the patient with the resident/fellow. I discussed the case with the resident/fellow and agree with the findings and plan as documented. * ED Provider Notes - Shantell Chua MD - 07/27/2024 6:16 PM EDT Images from the original note were not included. - HPI Chief Complaint Patient presents with Abdominal Pain Constipation HPI Adrián Goode is a 59 y.o. male presenting to the ED with decreased UOP and flank pain. 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 Due to his bulky LAD, he has received right ureteral stent exchanges every 6 months with his nextone due on 08/27/24. Patient was admitted to ED observation at that time for treatment of CARLOS with IV hydration and antibiotics for urinary tract infection. He was discharged in hemodynamically stable condition with improving CARLOS. He was called today to discussed that his by mouth antibiotics, cefadroxil, did not adequately covered bacteria found on culture. He was told to switch to amoxicillin. He was unable to start the medication before he hand decreased urine output, last urination was at 1000, and worsening right flank pain. On arrival to the emergency department patient was found to be hypotensive and felt generally weak. Patient History Medical History[1] Surgical History[2] Family History[3] Social History[4] Allergies: Allergies[5] Physical Exam ED Triage Vitals [07/27/24 1821] Temp Heart Rate Resp BP 36.8 ??C (98.3 ??F) 110 16 84/53 SpO2 Temp src Heart Rate Source Patient Position 96 % -- -- Sitting BP Location FiO2 (%) Right arm -- Physical Exam Vitals and nursing note reviewed. Constitutional: General: He is not in acute distress. Appearance: He is well-developed. He is ill-appearing. HENT: Head: Normocephalic and atraumatic. Eyes: Conjunctiva/sclera: Conjunctivae normal. Cardiovascular: Rate and Rhythm: Regular rhythm. Heart sounds: No murmur heard. Comments: Borderline tachycardia Pulmonary: Effort: Pulmonary effort is normal. No respiratory distress. Breath sounds: Normal breath sounds. Abdominal: General: Abdomen is flat. Palpations: Abdomen is soft. Tenderness: There is abdominal tenderness in the suprapubic area. There is right CVA tenderness. There is no left CVA tenderness, guarding or rebound. Musculoskeletal: General: No swelling. Cervical back: Neck supple. Skin: General: Skin is warm and dry. Capillary Refill: Capillary refill takes less than 2 seconds. Neurological: General: No focal deficit present. Mental Status: He is alert and oriented to person, place, and time. Psychiatric: Mood and Affect: Mood normal. Jesus Coma Scale Score: 15 ED Course & MDM - Assessment: 59 y.o. male presents to ED with complaint of right flank pain, generalized weakness, decreased urine output. It should be noted that the chronic conditions included in HPI, which currently is not atgoal therapy. This complicates the clinical picture because it Comorbidities: may be exacerbating symptoms Differential Diagnosis: Urinary tract infection, CARLOS, urinary retention, bowel obstruction In order to fully explore the differential diagnosis the following treatments and tests were ordered: ED Medication Administration from 07/27/2024 1815 to 07/28/2024 0001 Date/Time Order Dose Route Action 07/27/2024 1857 EDT lactated Ringer's bolus 1,614 mL 1,614 mL Intravenous New Bag 07/27/2024 1858 EDT piperacillin-tazobactam (Zosyn) 4.5 g in sodium chloride 0.9% 100 mL IVPB (vialadapter required) 4.5 g Intravenous New Bag 07/27/2024 1937 EDT piperacillin-tazobactam (Zosyn) 4.5 g in sodium chloride 0.9% 100 mL IVPB (vialadapter required) 0 g Intravenous Stopped 07/27/20242058 EDT lactated Ringer's bolus 1,614 mL 0 mL Intravenous Stopped 07/27/20242106 EDT iohexol (OMNIPaque) 300 MG/ML injection 100 mL 100 mL Intravenous Given 07/27/20242124 EDT HYDROmorphone (Dilaudid) injection 0.5 mg 0.5 mg Intravenous Given All Other Orders Ordered Status Ordering Provider 07/28/24 0001 Hemogram (CBC) Morning draw Start Status Ordering Provider 07/29/24 0400 Scheduled GERMAN FRANKLIN 07/30/24 0400 Scheduled GERMAN FRANKLIN 07/31/24 0400 Scheduled GERMAN FRANKLIN 08/01/24 0400 Scheduled GERMAN FRANKLIN 08/02/24 0400 Scheduled GERMAN FRANKLIN Ordered GERMAN FRANKLIN 07/28/24 0001 Basic metabolic panel Morning draw Start Status Ordering Provider 07/29/24 0400 Scheduled GERMAN FRANKLIN 07/30/24 0400 Scheduled GERMAN FRANKLIN 07/31/24 0400 Scheduled GERMAN FRANKLIN 08/01/24 0400 Scheduled LISBETH FRANKLINNDRA Quyen 08/02/24 0400 Scheduled MAXIMILIAN FRANKLINRA M Ordered GERMAN FRANKLIN 07/28/24 0001 Ambulate patient 4 times daily Ordered GERMAN FRANKLIN 07/28/24 0001 Do Not Give Nicotine Replacement Until discontinued Ordered GERMAN FRANKLIN 07/28/24 0001 NPO diet NPO except: Sips with meds Diet effective now Ordered GERMAN FRANKLIN 07/28/24 0001 Mobility Orders Until discontinued Ordered GERMAN FRANKLIN 07/28/24 0001 Out of Bed Until discontinued Ordered GERMAN FRANKLIN 07/28/24 0001 Notify Provider Until discontinued Ordered GERMAN FRANKLIN 07/28/24 0001 Vital Signs (Every 4 hours) Every 4 hours Ordered GERMAN FRANKLIN 07/28/24 0001 Check pulse oximetry (Every 4 hours) Every 4 hours Ordered GERMAN FRANKLIN 07/28/24 0001 Intake and Output (Every 4 hours) Every 4 hours Ordered FRANKLIN, GERMAN M 07/28/24 0001 Insert peripheral IV Once Placed in And Linked Group Ordered GERMAN FRANKLIN 07/28/24 0001 Saline lock IV Once Placed in And Linked Group Ordered GERMAN FRANKLIN M 07/28/24 0001 Do NOT transfer patient to [facility] without chief resident or attending apporval Until discontinued Ordered GERMAN FRANKLIN 07/28/24 0001 Initiate observation status Once Ordered GERMAN FRANKLIN 07/28/24 0001 Full code Continuous Ordered GERMAN FRANKLIN Quyen 07/27/242237 Consult to Urology Once Specialty: Urology Provider: (Not yet assigned) Completed SHANTELL CHUA 07/27/241956 Urinalysis Microscopic Examination Once Final result SHANTELL CHUA 07/27/24 185 Urinalysis with reflex microscopic AND reflex culture (IF UTI SUSPECTED) STAT Final result SHANTELL CHUA 07/27/24 185 Urinalysis with reflex microscopic (Culture NOT Included) PROCEDURE ONCE Final result SHANTELL CHUA 07/27/24 185 Urine Heaton Panel PROCEDURE ONCE Final result SHANTELL CHUA 07/27/24 184 CBC w/diff STAT Final result SHANTELL CHUA 07/27/24 184 CMP STAT Final result SHANTELL CHUA 07/27/24 1844 Lipase STAT Final result SHANTELL CHUA 07/27/24 184 Lactic acid, venous STAT Final result SHANTELL CHUA 07/27/24 184 Procalcitonin STAT Final result SHANTELL CHUA 07/27/[address] Abdomen Pelvis w IV Contrast Once Final result SHANTELL CHUA ED Course as of 07/28/24 0014 FriJuly 27, 20242057 Urinalysis with reflex microscopic AND reflex culture (IF UTI SUSPECTED)(!) Still consistent with urinary tract infection with small leukocytes and positive nitrites. Micro pending. [KAT] 2058 Sodium(!): 131 Mild hyponatremia [KAT] 2058 Hemoglobin(!): 10.5 Nonactionable [KAT] 2118 Creatinine: 1.16 Improving from recent admission when had CARLOS with Cr 1.43 [KAT] 2210 WBC, Urine: 0 - 5 Micro shows more reassuring findings with bacteria present but 0-5 WBC [KAT] 234 Consulted urology and had interactive discussion about patient's clinical presentation and recent visits for UTI, hypotension on arrival and worsening hydro on scans. They will admit patient forstent exchange. Pt agreeable to this plan. [KAT] ED Course User Index [KAT] Shantell Chua MD Clinical Impressions as of 07/28/24 0014 Hydronephrosis, unspecified hydronephrosis type Social Determinates of Health Risks (including Economic Stability, Education and level of understanding, Healthcare access and quality and concerning social factors): None identified on this visit Ultimately, this patient was Was admitted (Admission) The primary encounter diagnosis was Hydronephrosis with renal and ureteral calculus obstruction. A diagnosis of Hydronephrosis, unspecified hydronephrosis type was also pertinent to this visit.. Patient believed to require admission for the listed diagnoses. The urology service was consulted for admission and was agreeable to admit to Acute Floor (Med/Surg). ED Prescriptions None Disposition Admit Admitting/Attending Physician: ADAL FRANKLIN [[id number]] Provider Care Team: URO ONCOLOGY [[id number]] Are they the primary team?: Yes [1] - Shantell Chua MD Resident 07/28/24 0011 [1] Past Medical History: Diagnosis Date Acute [...] Procedure Laterality Date COLONOSCOPY PORTACATH PLACEMENT Right CA CYSTO/URETERO/PYELOSCOPY, DX Right 12/20/2022 Procedure: DIAGNOSTIC URETEROSCOPY; Surgeon: Sunday Lopez MD; Location: [facility]; Service: Urology THYROID SURGERY N/A Thyroid Surgery from [facility] UPPER GASTROINTESTINAL ENDOSCOPY [3] Family History Problem [...] document in the comment field Back pain Shantell Chua MD Resident 07/28/24 0014 Cosigned by Jin Clark MD at 07/28/2024 6:56 AM EDT Associated attestation - Jin Clark MD - 07/28/2024 6:56 AM EDT I saw and evaluated the patient with the resident/fellow. I discussed the case with the resident/fellow and agree with the findings and plan as documented. * ED Triage Notes - Richa Mota RN - 07/27/2024 6:16 PM EDT Says he has bladder cancer and has been having abd pain and has not been able to urinate or have a bowel movement since yesterday. documented in this encounter Plan of Treatment Upcoming Encounters Date Type Department Care Team (Late st Contact Info) Description 08/27/2024 1:00 PM EDT Office Visit [facility] Multidisciplinary Oncology Clinic [address] [phone] Bobby Vazquez MD [address] [facility] [address] [place] [address] 08/27/2024 1:00 PM EDT Clinical Support [facility] Multidisciplinary Oncology Clinic [address] [place] [phone] 08/27/2024 2:30 PM EDT Appointment [facility] Infusion Clinic [address] [phone] 10/19/2024 11:30 AM EDT Office Visit [facility] Multidisciplinary Oncology Clinic [address] [place] [phone] Kym Romero, PHYSICAL SCIENTIST [address] [facility] [address] [place] [address] 11/24/2024 11:00 AM EDT Office Visit [facility] Multidisciplinary Oncology Clinic [address] [place] [phone] Adal Franklin MD [address] [facility] [address] [place] [phone] 12/15/2024 1:00 PM EDT Office Visit [facility] [address] [place] [address] Efren Fallon MD [address] [facility] [address] [place] [address] 12/29/2024 9:30 AM EDT Clinical Support [facility] [address] [facility], [address] [place] [address] 12/29/2024 10:00 AM EDT Office Visit [facility] [address] [facility], [address] [place] [address] Carlito Mccartney MD [address] [facility] [address] [place] [phone] 03/23/2025 10:40 AM EST Office Visit [facility] [address] [facility] [place] [address] Arabella Romero, PHYSICAL SCIENTIST [address] [place] [phone] documented as of this encounter Procedures Procedure Name Priority Date/Time Associated Diagnosis Comments FL LESS THAN 1 HOUR (NON-REPORTABLE) Routine 07/28/2024 1:42 PM EDT URINE CULTURE Routine 07/28/2024 1:32 PM EDT Hydronephrosis with renal and ureteral calculus obstruction CA CYSTOSCOPY,INSERT URETERAL STENT 07/28/2024 12:39 PM EDT Hydronephrosis with renal and ureteral calculus obstruction CT ABDOMEN PELVIS W IV CONTRAST STAT 07/27/2024 9:11 PM EDT URINALYSIS WITH REFLEX MICROSCOPIC AND CULTURE STAT 07/27/2024 7:51 PM EDT URINE HEATON PANEL STAT 07/27/2024 7:51 PM EDT URINALYSIS MICROSCOPIC FOR UA REFLEX STAT 07/27/2024 7:51 PM EDT URINALYSIS WITH REFLEX MICROSCOPIC STAT 07/27/2024 7:51 PM EDT LACTATE, VENOUS STAT 07/27/2024 6:50 PM EDT PROCALCITONIN, PLASMA STAT 07/27/2024 6:50 PM EDT CBC WITH AUTO DIFFERENTIAL STAT 07/27/2024 6:50 PM EDT LIPASE, PLASMA STAT 07/27/2024 6:50 PM EDT COMPREHENSIVE METABOLIC PANEL, PLASMA STAT 07/27/2024 6:50 PM EDT documented in this encounter Results * FL Less than 1 Hour Intraoperative (07/28/2024 1:42 PM EDT) Narrative IMAGING - 07/28/2024 1:42 PM EDT Images were obtained for surgical purposes. See Gloria Velasquez's surgical note in the patient's chart for the findings. Gloria Velasquez MD IMG FLUOROSCOPY PROCEDURES F inal Result IMAGING * Urine Culture (07/28/2024 1:32 PM EDT) Culture No growth at day 1 07/29/2024 11:09 AM EDT [facility] Urine Right kidney structure / Unknown 07/28/2024 1:32 PM EDT 07/28/2024 2:03 PM EDT Comment:Pre-op diagnosis: Hydronephrosis with renal and ureteral calculus obstruction [N13.2] Gloria Velasquez MD LAB MICROBIOLOGY - GENERAL O RDERABLES Final Result [facility] [address] [facility] [place] [address] * CT Abdomen Pelvis w IV Contrast (07/27/2024 9:11 PM EDT) Anatomical Region Laterality Modality Abdomen, Pelvis Computed Tomogra phy Impressions 07/27/2024 11:14 PM EDT Significant urinary bladder wall thickening with perivesical fat stranding. Correlate for cystitis. Known high-grade upper tract urothelial carcinoma. Similar mild thickening of the right renal pelvis and proximal ureter. No obvious masses discerned within the right collecting system. Similar retroperitoneal, pelvic and inguinal femoral lymphadenopathy. Similar mild right hydronephrosis with a indwelling JJ stent in place. No left hydronephrosis. CRITICAL RESULT: No. COMMUNICATION: Per this written report. Drafted by Bonnie Roberson MD on 07/27/2024 11:02 PM Final report signed by Bonnie Roberson MD on 07/27/2024 11:14 PM Narrative 07/27/2024 11:14 PM EDT CLINICAL INDICATION: Abdominal pain, acute, nonlocalized TECHNIQUE: Imaging of the abdomen and pelvis was performed, from lung bases through pubic symphysis, using spiral technique, following administration of IV contrast, Omnipaque 300, 100 mL. Delayed (excretory phase) images were performed through the kidneys. Reformatted images in the coronal and sagittal planes were generated from the axial data set to facilitate diagnostic accuracy. Total DLP (Dose-Length Product): 729.47 mGy.cm. Please note: The reported value represents the total of one or more individual components during the CT acquisition on this date and at this time, and as such, the same value may appear in more than one CT report depending on the interpreting/reporting physicians. COMPARISON: 07/23/2024 FINDINGS: Lung Bases: Bibasal atelectasis. Liver/Gallbladder/Biliary system: The liver demonstrates homogeneous enhancement. Normal Gallbladder. No intra- or extra-hepatic biliary ductal dilatation. Spleen: The spleen enhances homogeneously. Pancreas: The pancreas enhances homogeneously. Adrenals: The adrenals are morphologically unremarkable. Kidneys: Similar mild right hydronephrosis with a indwelling JJ stent in place. Similar mild thickening of the right renal pelvis. No obvious masses discerned. Punctate stone in the left lower pole. No left hydronephrosis. Bowel/Mesentery: Small hiatal hernia. The small bowel is not dilated. The large bowel loops are not dilated. Uncomplicated colonic diverticulosis pronounced in the sigmoid colon. The appendix is not visualized. Vessels/Lymph Nodes: The abdominal aorta is unremarkable. Redemonstrated periportal, para-aortic and retrocaval lymph nodes dominant in the aortocaval window measuring 1.9 cm similar to prior. Unchanged large right pelvic lymph node measuring 3.4 cm in AP diameter. Similar left pelvic wall lymph nodes. Similar right inguinal femoral nodes measuring approximately 1.7 cm in the inguinal region. Fluid Survey: No free fluid in the abdomen. No free fluid in the pelvis. Pelvis: No pelvic mass. Diffusely thickened urinary bladder with perivesical fat stranding. Nonspecific stranding in the pelvis. Body Wall: Normal. Bones: No acute fracture. Procedure Note Bonnie Roberson MD - 07/27/2024 CLINICAL INDICATION: Abdominal pain, acute, nonlocalized TECHNIQUE: Imaging of the abdomen and pelvis was performed, from lung bases throughpubic symphysis, using spiral technique, following administration of IVcontrast, Omnipaque 300, 100 mL. Delayed (excretory phase) images wereperformed through the kidneys. Reformatted images in the coronal andsagittal planes were generated from the axial data set to facilitatediagnostic accuracy. Total DLP (Dose-Length Product): 729.47 mGy.cm. Please note: The reportedvalue represents the total of one or more individual components during theCT acquisition on this date and at this time, and as such, the same valuemay appear in more than one CT report depending on theinterpreting/reporting physicians. COMPARISON: 07/23/2024 FINDINGS: Lung Bases: Bibasal atelectasis. Liver/Gallbladder/Biliary system: The liver demonstrates homogeneousenhancement. Normal Gallbladder. No intra- or extra-hepatic biliary ductaldilatation. Spleen: The spleen enhances homogeneously. Pancreas: The pancreas enhances homogeneously. Adrenals: The adrenals are morphologically unremarkable. Kidneys: Similar mild right hydronephrosis with a indwelling JJ stent inplace. Similar mild thickening of the right renal pelvis. No obviousmasses discerned. Punctate stone in the left lower pole. No lefthydronephrosis. Bowel/Mesentery: Small hiatal hernia. The small bowel is not dilated. Thelarge bowel loops are not dilated. Uncomplicated colonic diverticulosispronounced in the sigmoid colon. The appendix is not visualized. Vessels/Lymph Nodes: The abdominal aorta is unremarkable. Redemonstratedperiportal, para-aortic and retrocaval lymph nodes dominant in theaortocaval window measuring 1.9 cm similar to prior. Unchanged large rightpelvic lymph node measuring 3.4 cm in AP diameter. Similar left pelvicwall lymph nodes. Similar right inguinal femoral nodes measuringapproximately 1.7 cm in the inguinal region. Fluid Survey: No free fluid in the abdomen. No free fluid in the pelvis. Pelvis: No pelvic mass. Diffusely thickened urinary bladder withperivesical fat stranding. Nonspecific stranding in the pelvis. Body Wall: Normal. Bones: No acute fracture. IMPRESSION: Significant urinary bladder wall thickening with perivesical fatstranding. Correlate for cystitis. Known high-grade upper tract urothelial carcinoma. Similar mild thickeningof the right renal pelvis and proximal ureter. No obvious masses discernedwithin the right collecting system. Similar retroperitoneal, pelvic andinguinal femoral lymphadenopathy. Similar mild right hydronephrosis with a indwelling JJ stent in place. Noleft hydronephrosis. CRITICAL RESULT: No. COMMUNICATION: Per this written report. Drafted by Bonnie Roberson MD on 07/27/2024 11:02 PM Final report signed by Bonnie Roberson MD on 07/27/2024 11:14 PM Jin Clark MD IMG CT PROCEDURES Final Result * Urinalysis Microscopic Examination (07/27/2024 7:51 PM EDT) Urine Urine specimen obtained by clean catch procedure / Unknown Non-blood Collection / Unknown 07/27/2024 7:51 PM EDT 07/27/2024 7:54 PM EDT us Jin Clark MD LAB URINE ORDERABLES Fi nal Result [facility] [address] [place] [address] * Urine Heaton Panel (07/27/2024 7:51 PM EDT) Extra Reflex urine culture not indicated 07/27/2024 10:01 PM EDT [facility] Urine Urine specimen obtained by clean catch procedure / Unknown Non-blood Collection / Unknown 07/27/2024 7:51 PM EDT 07/27/2024 8:04 PM EDT Jin Clark MD LAB URINE ORDERABLES Fi nal Result [facility] [address] [place] [address] * (ABNORMAL) Urinalysis with reflex microscopic (Culture NOT Included) (07/27/2024 7:51 PM EDT) Color, Urine Dark Yellow LAB URINALYSIS - AUTOMATED METHOD 07/27/2024 9:44 PM EDT [facility] Clarity, Urine Clear LAB URINALYSIS - AUTOMATED METHOD 07/27/2024 9:44 PM EDT [facility] Spec [place], Urine 1.008 1.005 - 1.030 LAB URINALYSIS - AUTOMATED METHOD 07/27/2024 9:44 PM EDT [facility] pH, Urine 7.0 5.0 - 8.0 LAB URINALYSIS - AUTOMATED METHOD 07/27/2024 9:44 PM EDT [facility] Protein, Urine 100(A) Negative mg/dL LAB URINALYSIS - AUTOMATED METHOD 07/27/2024 9:44 PM EDT [facility] Glucose, Urine Negative Negative mg/dL LAB URINALYSIS - AUTOMATED METHOD 07/27/2024 9:44 PM EDT [facility] Ketones, Urine Negative Negative mg/dL LAB URINALYSIS - AUTOMATED METHOD 07/27/2024 9:44 PM EDT [facility] Blood, Urine Large(A) Negative LAB URINALYSIS - AUTOMATED METHOD 07/27/2024 9:44 PM EDT [facility] Bilirubin, Urine Negative Negative LAB URINALYSIS - AUTOMATED METHOD 07/27/2024 9:44 PM EDT [facility] Urobilinogen, Urine 1.0 0.2 to 1.0 mg/dL LAB URINALYSIS - AUTOMATED METHOD 07/27/2024 9:44 PM EDT [facility] Leukocytes, Urine Small(A) Negative LAB URINALYSIS - AUTOMATED METHOD 07/27/2024 9:44 PM EDT [facility] Nitrite, Urine Positive(A) Negative LAB URINALYSIS - AUTOMATED METHOD 07/27/2024 9:44 PM EDT [facility] RBC, Urine 3 0 to 3 /HPF LAB URINALYSIS - AUTOMATED METHOD 07/27/2024 9:44 PM EDT [facility] Comment: Confirmed This result was previously suppressed from the chart. WBC, Urine 0 - 5 0 to 5 /HPF LAB URINALYSIS - AUTOMATED METHOD 07/27/2024 9:44 PM EDT [facility] Comment:This result was prev iously suppressed from the chart. Squamous Epithelial Cells 0 - 2 0 to 5 /HPF LAB URINALYSIS - AUTOMATED METHOD 07/27/2024 9:44 PM EDT [facility] Comment:This result was prev iously suppressed from the chart. Hyaline Casts 0 - 2 0 to 5 /LPF LAB URINALYSIS - AUTOMATED METHOD 07/27/2024 9:44 PM EDT [facility] Comment:This result was prev iously suppressed from the chart. Bacteria, Urine Present Negative LAB URINALYSIS - AUTOMATED METHOD 07/27/2024 9:44 PM EDT [facility] Comment:This result was prev iously suppressed from the chart. Urine Urine specimen obtained by clean catch procedure / Unknown Non-blood Collection / Unknown 07/27/2024 7:51 PM EDT 07/27/2024 7:54 PM EDT Narrative [facility] - 07/27/2024 9:44 PM EDT Performed by manual method us Jin Clark MD LAB URINE ORDERABLES Fi nal Result [facility] [address] [place] [address] * Procalcitonin (07/27/2024 6:50 PM EDT) Procalcitonin, Plasma 0.07 <0.09 ng/mL 07/27/2024 7:45 PM EDT [facility] Blood Venous blood specimen / Unknown Venipuncture / Unknown 07/27/2024 6:50 PM EDT 07/27/2024 7:04 PM EDT Narrative [facility] - 07/27/2024 7:45 PM EDT Procalcitonin concentrations in healthy individuals are <0.09 ng/mL. Published data support the following interpretive risk assessment: An elevated procalcitonin result does not always indicate sepsis. Various non-infectious conditions are known to increase procalcitonin. Results should be considered in the context of clinical symptoms and other laboratory tests. Procalcitonin >2.0 ng/mL: Concentrations >2.0 ng/mL on the first day of ICU admission are associated with a higher risk of progression to severe sepsis and/or septic shock. The change in PCT over time may help predict 28 day mortality risk. Please consult [email or web address]-aie-xizhbhzpdt.com for more information. Test performed at [facility]. Jin Clark MD LAB BLOOD ORDERABLES Fi nal Result Performing Organization Address [facility] [place] [address] * Lactic acid, venous (07/27/2024 6:50 PM EDT) Lactate, Venous, Whole Blood 1.9 0.5 - 2.2 mmol/L LAB HEMATOLOGY METHOD 07/27/2024 7:14 PM EDT [facility] Blood Venous blood specimen / Unknown Venipuncture / Unknown 07/27/2024 6:50 PM EDT 07/27/2024 7:09 PM EDT Result [facility] Jin Clark MD LAB BLOOD ORDERABLES Fi nal Result Performing Organization Address [facility] [place] [address] * Lipase (07/27/2024 6:50 PM EDT) Lipase, Plasma 25 19 - 63 U/L 07/27/2024 7:45 PM EDT [facility] Blood Venous blood specimen / Unknown Venipuncture / Unknown 07/27/2024 6:50 PM EDT 07/27/2024 7:04 PM EDT Jin Clark MD LAB BLOOD ORDERABLES Fi nal Result Performing Organization Address [facility] Co de Phone Number [facility] [address] [place] [address] [place] [address] * (ABNORMAL) CMP (07/27/2024 6:50 PM EDT) Glucose, Plasma 100(H) 74 - 99 mg/dL 07/27/2024 7:45 PM EDT [facility] BUN, Plasma 11 8 - 23 mg/dL 07/27/2024 7:45 PM EDT [facility] Creatinine, Plasma 1.16 0.70 - 1.20 mg/dL 07/27/2024 7:45 PM EDT [facility] BUN/Creatinine Ratio 9 07/27/2024 7:45 PM EDT [facility] Sodium, Plasma 131(L) 136 - 145 mmol/L 07/27/2024 7:45 PM EDT [facility] Potassium, Plasma 4.1 3.6 - 4.9 mmol/L 07/27/2024 7:45 PM EDT [facility] Chloride, Plasma 95(L) 97 - 107 mmol/L 07/27/2024 7:45 PM EDT [facility] CO2, Plasma 23 22 - 29 mmol/L 07/27/2024 7:45 PM EDT [facility] Anion Gap 13 6 - 16 mmol/L 07/27/2024 7:45 PM EDT [facility] Total Calcium, Plasma 9.2 8.9 - 10.2 mg/dL 07/27/2024 7:45 PM EDT [facility] Total Protein 7.0 6.3 - 7.9 g/dL 07/27/2024 7:45 PM EDT [facility] Albumin, Plasma 3.8 3.5 - 5.2 g/dL 07/27/2024 7:45 PM EDT [facility] AST, Plasma 48 10 - 50 U/L 07/27/2024 7:45 PM EDT [facility] ALT, Plasma 37 10 - 50 U/L 07/27/2024 7:45 PM EDT [facility] Alkaline Phosphatase, Plasma 109 40 - 115 U/L 07/27/2024 7:45 PM EDT [facility] Total Bilirubin, Plasma 0.2 0.2 - 1.1 mg/dL 07/27/2024 7:45 PM EDT [facility] eGFRcr 72.1 mL/min/1.7 3m*2 07/27/2024 7:45 PM EDT [facility] Comment:Reported eGFRcr in m L/min/1.73m2 is based the CKD-EPI 2020 equation that does not use a race coefficient. Blood Venous blood specimen / Unknown Venipuncture / Unknown 07/27/2024 6:50 PM EDT 07/27/2024 7:04 PM EDT us Jin Clark MD LAB BLOOD ORDERABLES Fi nal Result [facility] [address] [place] [address] * (ABNORMAL) CBC w/diff (07/27/2024 6:50 PM EDT) WBC Count 9.93 3.70 - 10.30 10*3/uL LAB HEMATOLOGY METHOD 07/27/2024 7:46 PM EDT [facility] RBC Count 4.06(L) 4.60 - 6.10 10*6/uL LAB HEMATOLOGY METHOD 07/27/2024 7:46 PM EDT [facility] HGB 10.5(L) 13.7 - 17.5 g/dL LAB HEMATOLOGY METHOD 07/27/2024 7:46 PM EDT [facility] HCT 32.2(L) 40.0 - 51.0 % LAB HEMATOLOGY METHOD 07/27/2024 7:46 PM EDT [facility] Platelet Count 249 155 - 369 10*3/uL LAB HEMATOLOGY METHOD 07/27/2024 7:46 PM EDT [facility] MCV 79 79 - 98 fL LAB HEMATOLOGY METHOD 07/27/2024 7:46 PM EDT [facility] MCH 25.9(L) 26.0 - 32.0 pg LAB HEMATOLOGY METHOD 07/27/2024 7:46 PM EDT [facility] MCHC 32.6 30.7 - 35.5 g/dL LAB HEMATOLOGY METHOD 07/27/2024 7:46 PM EDT [facility] RDW 15.7(H) 11.5 - 14.5 % LAB HEMATOLOGY METHOD 07/27/2024 7:46 PM EDT [facility] MPV 9.8 8.8 - 12.5 fL LAB HEMATOLOGY METHOD 07/27/2024 7:46 PM EDT [facility] nRBC 0.0 <=0.0 per 100 WBCs LAB HEMATOLOGY METHOD 07/27/2024 7:46 PM EDT [facility] Differential Type Automated LAB HEMATOLOGY METHOD 07/27/2024 7:46 PM EDT [facility] Neutrophils % 77 % LAB HEMATOLOGY METHOD 07/27/2024 7:46 PM EDT [facility] Lymphocytes % 11 % LAB HEMATOLOGY METHOD 07/27/2024 7:46 PM EDT [facility] Monocytes % 10 % LAB HEMATOLOGY METHOD 07/27/2024 7:46 PM EDT [facility] Eosinophils % 1 % LAB HEMATOLOGY METHOD 07/27/2024 7:46 PM EDT [facility] Basophils % 0 % LAB HEMATOLOGY METHOD 07/27/2024 7:46 PM EDT [facility] Immature Granulocytes % 1 % LAB HEMATOLOGY METHOD 07/27/2024 7:46 PM EDT [facility] Neutrophils Absolute 7.63(H) 1.60 - 6.10 10*3/uL LAB HEMATOLOGY METHOD 07/27/2024 7:46 PM EDT [facility] Lymphocytes Absolute 1.11(L) 1.20 - 3.90 10*3/uL LAB HEMATOLOGY METHOD 07/27/2024 7:46 PM EDT [facility] Monocytes Absolute 1.02(H) 0.30 - 0.90 10*3/uL LAB HEMATOLOGY METHOD 07/27/2024 7:46 PM EDT [facility] Eosinophils Absolute 0.06 0.00 - 0.50 10*3/uL LAB HEMATOLOGY METHOD 07/27/2024 7:46 PM EDT [facility] Basophils Absolute 0.03 0.00 - 0.10 10*3/uL LAB HEMATOLOGY METHOD 07/27/2024 7:46 PM EDT [facility] Immature Granulocytes Absolute 0.08(H) 0.00 - 0.06 10*3/uL LAB HEMATOLOGY METHOD 07/27/2024 7:46 PM EDT [facility] Blood Venous blood specimen / Unknown Venipuncture / Unknown 07/27/2024 6:50 PM EDT 07/27/2024 7:04 PM EDT Narrative [facility] - 07/27/2024 7:46 PM EDT Therapeutic decision making should be based on absolute values, rather than percentages. us Jin Clark MD LAB BLOOD ORDERABLES Fi nal Result [facility] [address] [place] [address] documented in this encounter Visit Diagnoses Diagnosis Hydronephrosis- Primary Hydronephrosis with renal and ureteral calculus obstruction Hydronephrosis, unspecified hydronephrosis type documented in this encounter Admitting Diagnoses Diagnosis Hydronephrosis documented in this encounter Administered Medications Inactive Administered Medications - up to 3 most recent administrations Medication Order MAR Action Action Date Dose Rate Site acetaminophen (Tylenol) tablet 1,000 mg 1,000 mg, Oral, Once as needed, 1 dose, Starting on Fri07/28/24 at 1338, Until Fri07/28/24 at 1744, Routine, Recovery (Phase I only), pain score of >1 out of 10 acetaminophen (Tylenol) tablet 650 mg 650 mg, Oral, Every 6 hours scheduled, First dose on Fri07/28/24 at 0005, Until Discontinued, Routine Given 07/28/2024 1:37 AM EDT 650 mg ampicillin-sulbactam (Unasyn) 3 g in sodium chloride 0.9% 100 mL IVPB (vial adapter required) 3 g, Intravenous, Every 6 hours, First dose on Fri07/28/24 at 0015, Until Discontinued, Routine New Bag 07/28/2024 7:45 AM EDT 3 g 220 mL/hr New Bag 07/28/2024 1:37 AM EDT 3 g 220 mL/hr docusate sodium (Colace) capsule 100 mg 100 mg, Oral, 2 times daily, First dose on Fri07/28/24 at 0005, Until Discontinued, Routine Given 07/28/2024 8:00 AM EDT 100 mg Given 07/28/2024 1:37 AM EDT 100 mg droperidol (Inapsine) injection 0.625 mg 0.625 mg, Intravenous, Once as needed, 1 dose, Starting on Fri07/28/24 at 1338, Until Fri07/28/24 at 1744, Routine, Recovery (Phase I only), nausea, vomiting enoxaparin (Lovenox) syringe 40 mg 40 mg, Subcutaneous, Every 24 hours scheduled, First dose on Fri07/28/24 at 0900, Until Discontinued, RoutineIndications:Prophylaxis of Venous Thromboembolism fentaNYL (Sublimaze) injection 50 mcg 50 mcg, Intravenous, Every 5 min PRN, 2 doses, Starting on Fri07/28/24 at 1338, Until Fri07/28/24 at 1744, Routine, Recovery (Phase I only), pain score of 5-8 out of 10 HYDROmorphone (Dilaudid) injection 0.5 mg 0.5 mg, Intravenous, Once, 1 dose, On Fri07/27/24 at 2125, Routine Given 07/27/2024 9:25 PM EDT 0.5 mg HYDROmorphone (Dilaudid) injection 0.5 mg 0.5 mg, Intravenous, Every 2 hour PRN, Starting on Fri07/28/24 at 1051, Until Fri07/28/24 at 1744, Routine, Recovery(Phase II-Outpatient)/On Unit(Inpatient), mild - moderate pain HYDROmorphone (Dilaudid) injection 0.5 mg 0.5 mg, Intravenous, Every 10 min PRN, 2 doses, Starting on Fri07/28/24 at 1338, Until Fri07/28/24 at 1744, Routine, Recovery (Phase I only), pain score of 9-10 out of 10 HYDROmorphone (Dilaudid) injection 1 mg 1 mg, Intravenous, Every 2 hour PRN, Starting on Fri07/28/24 at 1051, Until Fri07/28/24 at 1744, Routine, Recovery(Phase II-Outpatient)/On Unit(Inpatient), severe pain ibuprofen tablet 400 mg 400 mg, Oral, Every 6 hours PRN, Starting on Fri07/28/24 at 0001, Until Fri07/28/24 at 1744, Routine, mild pain Given 07/28/2024 7:46 AM EDT 400 mg iohexol (OMNIPaque) 300 MG/ML injection 100 mL 100 mL, Intravenous, Once in imaging, 1 dose, Starting on Fri07/27/24 at 2103, Until Fri07/27/24 at 2107, Routine, Imaging Protocol Orders Given 07/27/2024 9:07 PM EDT 100 mL lactated Ringer's bolus 1,614 mL 1,614 mL (20 mL/kg 80.7 kg), Intravenous, Once, 1 dose, On Fri07/27/24 at 1855, Administer over 2 Hours, Routine New Bag 07/27/2024 6:57 PM EDT 1,614 mL 807 mL/hr lactated Ringer's infusion 75 mL/hr, Intravenous, Continuous, Starting on Fri07/28/24 at 0005, Until Fri07/28/24 at 1744, Routine New Bag 07/28/2024 12:54 PM EDT Restarted 07/28/2024 9:42 AM EDT 75 mL/hr 75 mL/hr New Bag 07/28/2024 1:42 AM EDT 75 mL/hr 75 mL/hr morphine CR (MS Contin) 12 hr tablet 15 mg 15 mg, Oral, 2 times daily, First dose on Fri07/28/24 at 0900, Until Discontinued, Routine Given 07/28/2024 8:00 AM EDT 15 mg ondansetron (Zofran) injection 4 mg 4 mg, Intravenous, Every 6 hours PRN, Starting on Fri07/28/24 at 0001, Until Fri07/28/24 at 1744, Routine, nausea, vomiting ondansetron (Zofran) injection 4 mg 4 mg, Intravenous, Once as needed, 1 dose, Starting on Fri07/28/24 at 1338, Until Fri07/28/24 at 1744, Routine, Recovery (Phase I only), nausea, vomiting oxyCODONE (Roxicodone) immediate release tablet 10 mg 10 mg, Oral, Every 6 hours PRN, Starting on Fri07/28/24 at 0656, Until Fri07/28/24 at 1744, Routine, severe pain oxyCODONE (Roxicodone) immediate release tablet 10 mg 10 mg, Oral, Once as needed, 2 doses, Starting on Fri07/28/24 at 1338, Until Fri07/28/24 at 1744, Routine, Recovery (Phase I only), pain score of 6-8 out of 10 oxyCODONE (Roxicodone) immediate release tablet 5 mg 5 mg, Oral, Once as needed, 2 doses, Starting on Fri07/28/24 at 1338, Until Fri07/28/24 at 1744, Routine, Recovery (Phase I only), pain score of 3-5 out of 10 phenazopyridine (Pyridium) tablet 200 mg 200 mg, Oral, 3 times daily PRN, Starting on Fri07/28/24 at 0000, Until Fri07/28/24 at 1744, Routine, pain, discomfort, irritation piperacillin-tazobactam (Zosyn) 4.5 g in sodium chloride 0.9% 100 mL IVPB (vial adapter required) 4.5 g, Intravenous, Once, 1 dose, On Fri07/27/24 at 1855, Routine New Bag 07/27/2024 6:58 PM EDT 4.5 g 220 mL/hr Povidone-Iodine 5 % swab solution 1 Application Nasal, Once, 1 dose, On Fri07/28/24 at 1130, Routine Given 07/28/2024 11:02 AM EDT 1 Application sodium chloride 0.9 % flush 10 mL 10 mL, Intravenous, Every 12 hours, First dose on Fri07/28/24 at 0005, Until Discontinued, Routine sodium chloride 0.9 % flush 10 mL 10 mL, Intravenous, As needed, Starting on Fri07/27/24 at 2359, Until Fri07/28/24 at 1744, Routine, line care sodium chloride 0.9 % flush 10 mL 10 mL, Intravenous, Every 12 hours, First dose on Fri07/28/24 at 1130, Until Discontinued, Routine, Holding - Preprocedure Given 07/28/2024 11:02 AM EDT 10 mL sodium chloride 0.9 % flush 10 mL 10 mL, Intravenous, As needed, Starting on Fri07/28/24 at 1041, Until Fri07/28/24 at 1744, Routine, Holding - Preprocedure, line care tamsulosin (Flomax) 24 hr capsule 0.4 mg 0.4 mg, Oral, Nightly, First dose on Fri07/28/24 at 0005, Until Discontinued, Routine Given 07/28/2024 1:37 AM EDT 0.4 mg documented in this encounter Active and Recently Administered Medications Times are shown in EDT. Scheduled Medication Order 07/26/2024 07/27/2024 07/28/2024 acetaminophen (Tylenol) tablet 650 mg 650 mg, Oral, Every 6 hours scheduled, First dose on Fri07/28/24 at 0005, Until Discontinued, Routine 0137 (Given - Provid er: Re Mcmahon)0510 (Not Given - Provider: Re Mcmahon - Reason: NPO)1037 (MAR Hold - Provider: Automatic Transfer Provider - Reason: Patient in procedure)1200 (Dose Auto Held - Provider: Automatic Transfer Provider)1744 (MAR Unhold - Provider: Automatic Discharge Provider) ampicillin-sulbactam (Unasyn) 3 g in sodium chloride 0.9% 100 mL IVPB (vial adapter required) 3 g, Intravenous, Every 6 hours, First dose on Fri07/28/24 at 0015, Until Discontinued, Routine 0137 (New Bag - Prov ider: Re Mcmahon)0207 (Stopped - Provider: Re Mcmahon)0745 (New Bag - Provider: Marilee Quiroga, GIN)0942 (Stopped - Provider: Marilee Quiroga, GIN)1215 (Canceled Entry - Provider: Automatic Discharge Provider - Comment: Automatically canceled at discontinue of medication order) docusate sodium (Colace) capsule 100 mg 100 mg, Oral, 2 times daily, First dose on Fri07/28/24 at 0005, Until Discontinued, Routine 0137 (Given - Provid er: Re Mcmahon)0800 (Given - Provider: Marilee Quiroga, RN)1037 (MAR Hold - Provider: Automatic Transfer Provider - Reason: Patient in procedure)1744 (MAR Unhold - Provider: Automatic Discharge Provider) enoxaparin (Lovenox) syringe 40 mg 40 mg, Subcutaneous, Every 24 hours scheduled, First dose on Fri07/28/24 at 0900, Until Discontinued, Routine 0800 (Not Given - Provider: Marilee Quiroga, GIN - Reason: Patient/family refused)1037 (MAR Hold - Provider: Automatic Transfer Provider - Reason: Patient in procedure)1744 (MAR Unhold - Provider: Automatic Discharge Provider) HYDROmorphone (Dilaudid) injection 0.5 mg (COMPLETED) 0.5 mg, Intravenous, Once, 1 dose, On Fri07/27/24 at 2125, Routine 212 (Given - Provider: Indiana Rascon, RN) iohexol (OMNIPaque) 300 MG/ML injection 100 mL (COMPLETED) 100 mL, Intravenous, Once in imaging, 1 dose, Starting on Fri07/27/24 at 2103, Until Fri07/27/24 at 210, Routine, Imaging Protocol Orders 2106 (Given - Provider: Loki Rosas) lactated Ringer's bolus 1,614 mL (COMPLETED) 1,614 mL (20 mL/kg 80.7 kg), Intravenous, Once, 1 dose, On Fri07/27/24 at 1855, Administer over 2 Hours, Routine 185 (New Bag - Provider: Karma Hopkins)2058 (Stopped - Provider: Indiana Rascon, GIN) lactated Ringer's infusion 20 mL/hr, Intravenous, Once, 1 dose, On Fri07/28/24 at 1430, Routine 1430 (Canceled Entry - Provider: Automatic Discharge Provider - Comment: Automatically canceled at discontinue of medication order) morphine CR (MS Contin) 12 hr tablet 15 mg 15 mg, Oral, 2 times daily, First dose on Fri07/28/24 at 0900, Until Discontinued, Routine 0800 (Given - Provid er: Marilee Quiroga RN)1037 (MAY Hold - Provider: Automatic Transfer Provider - Reason: Patient in procedure)1744 (MAY Unhold - Provider: Automatic Discharge Provider) piperacillin-tazobactam (Zosyn) 4.5 g in sodium chloride 0.9% 100 mL IVPB (vial adapter required) (COMPLETED) 4.5 g, Intravenous, Once, 1 dose, On Fri07/27/24 at 1855, Routine 1858 (New Bag - Provider: Karma Hopkins)1937 (Stopped - Provider: Ara Woodruff, RN) Povidone-Iodine 5 % swab solution 1 Application (COMPLETED) Nasal, Once, 1 dose, On Fri07/28/24 at 1130, Routine 1102 (Given - Provid er: Makayla Burden RN) sodium chloride 0.9 % flush 10 mL(Linked Group 1) 10 mL, Intravenous, Every 12 hours, First dose on Fri07/28/24 at 0005, Until Discontinued, Routine 0144 (Not Given - Provider: Re Mcmahon - Reason: Order parameters not met - Comment: fluids infusing)1037 (MAR Hold - Provider: Automatic Transfer Provider - Reason: Patient in procedure)1205 (Dose Auto Held - Provider: Automatic Transfer Provider)1744 (MAR Unhold - Provider: Automatic Discharge Provider) sodium chloride 0.9 % flush 10 mL(Linked Group 2) 10 mL, Intravenous, Every 12 hours, First dose on Fri07/28/24 at 1130, Until Discontinued, Routine, Holding - Preprocedure 1102 (Given - Provid er: Makayla Burden RN) tamsulosin (Flomax) 24 hr capsule 0.4 mg 0.4 mg, Oral, Nightly, First dose on Fri07/28/24 at 0005, Until Discontinued, Routine 0137 (Given - Provid er: Re Mcmahon)1037 (MAY Hold - Provider: Automatic Transfer Provider - Reason: Patient in procedure)1744 (MAR Unhold - Provider: Automatic Discharge Provider) Continuous Medication Order 07/26/2024 07/27/2024 07/28/2024 lactated Ringer's infusion 75 mL/hr, Intravenous, Continuous, Starting on Fri07/28/24 at 0005, Until Fri07/28/24 at 1744, Routine 0142 (New Bag - Prov ider: Re Mcmahon)0746 (Paused - Provider: Marilee Quiroga, GIN)0942 (Restarted - Provider: Marilee Quiroga RN)1253 (Paused - Provider: Miriam Mayfield CRNA - Comment: Switch to gravity)1254 (New Bag - Provider: Miriam Mayfield CRNA) PRN Medication Order 07/26/2024 07/27/2024 07/28/2024 acetaminophen (Tylenol) tablet 1,000 mg 1,000 mg, Oral, Once as needed, 1 dose, Starting on Fri07/28/24 at 1338, Until Fri07/28/24 at 1744, Routine, Recovery (Phase I only), pain score of >1 out of 10 droperidol (Inapsine) injection 0.625 mg 0.625 mg, Intravenous, Once as needed, 1 dose, Starting on Fri07/28/24 at 1338, Until Fri07/28/24 at 1744, Routine, Recovery (Phase I only), nausea, vomiting fentaNYL (Sublimaze) injection 50 mcg 50 mcg, Intravenous, Every 5 min PRN, 2 doses, Starting on Fri07/28/24 at 1338, Until Fri07/28/24 at 1744, Routine, Recovery (Phase I only), pain score of 5-8 out of 10 HYDROmorphone (Dilaudid) injection 0.5 mg(Linked Group 3) 0.5 mg, Intravenous, Every 2 hour PRN, Starting on Fri07/28/24 at 1051, Until Fri07/28/24 at 1744, Routine, Recovery(Phase II-Outpatient)/On Unit(Inpatient), mild - moderate pain HYDROmorphone (Dilaudid) injection 0.5 mg 0.5 mg, Intravenous, Every 10 min PRN, 2 doses, Starting on Fri07/28/24 at 1338, Until Fri07/28/24 at 1744, Routine, Recovery (Phase I only), pain score of 9-10 out of 10 HYDROmorphone (Dilaudid) injection 1 mg(Linked Group 3) 1 mg, Intravenous, Every 2 hour PRN, Starting on Fri07/28/24 at 1051, Until Fri07/28/24 at 1744, Routine, Recovery(Phase II-Outpatient)/On Unit(Inpatient), severe pain ibuprofen tablet 400 mg 400 mg, Oral, Every 6 hours PRN, Starting on Fri07/28/24 at 0001, Until Fri07/28/24 at 1744, Routine, mild pain 0746 (Given - Provid er: Marilee Quiroga RN)1037 (MAY Hold - Provider: Automatic Transfer Provider - Reason: Patient in procedure)1744 (MAY Unhold - Provider: Automatic Discharge Provider) iohexol (OMNIPaque) 300 MG/ML injection (CANCELED) As needed, Starting on Fri07/28/24 at 1200, Until Fri07/28/24 at 1348, Routine, Intraprocedure 1322 (Given - Provid er: Gloria Velasquez MD) ondansetron (Zofran) injection 4 mg 4 mg, Intravenous, Every 6 hours PRN, Starting on Fri07/28/24 at 0001, Until Fri07/28/24 at 1744, Routine, nausea, vomiting 1037 ([facility] Hold - Pro vider: Automatic Transfer Provider - Reason: Patient in procedure)174 ([facility] Unhold - Provider: Automatic Discharge Provider) ondansetron (Zofran) injection 4 mg 4 mg, Intravenous, Once as needed, 1 dose, Starting on Fri07/28/24 at 1338, Until Fri07/28/24 at 1744, Routine, Recovery (Phase I only), nausea, vomiting oxyCODONE (Roxicodone) immediate release tablet 10 mg 10 mg, Oral, Every 6 hours PRN, Starting on Fri07/28/24 at 0656, Until Fri07/28/24 at 1744, Routine, severe pain 1037 ([facility] Hold - Pro vider: Automatic Transfer Provider - Reason: Patient in procedure)1743 ([facility] Unhold - Provider: Automatic Discharge Provider) oxyCODONE (Roxicodone) immediate release tablet 10 mg(Linked Group 4) 10 mg, Oral, Once as needed, 2 doses, Starting on Fri07/28/24 at 1338, Until Fri07/28/24 at 1744, Routine, Recovery (Phase I only), pain score of 6-8 out of 10 oxyCODONE (Roxicodone) immediate release tablet 5 mg(Linked Group 4) 5 mg, Oral, Once as needed, 2 doses, Starting on Fri07/28/24 at 1338, Until Fri07/28/24 at 1744, Routine, Recovery (Phase I only), pain score of 3-5 out of 10 phenazopyridine (Pyridium) tablet 200 mg 200 mg, Oral, 3 times daily PRN, Starting on Fri07/28/24 at 0000, Until Fri07/28/24 at 1744, Routine, pain, discomfort, irritation 1037 ([facility] Hold - Pro vider: Automatic Transfer Provider - Reason: Patient in procedure)174 ([facility] Unhold - Provider: Automatic Discharge Provider) sodium chloride 0.9 % flush 10 mL(Linked Group 1) 10 mL, Intravenous, As needed, Starting on Fri07/27/24 at 2359, Until Fri07/28/24 at 1744, Routine, line care 1037 ([facility] Hold - Pro vider: Automatic Transfer Provider - Reason: Patient in procedure)1743 ([facility] Unhold - Provider: Automatic Discharge Provider) sodium chloride 0.9 % flush 10 mL(Linked Group 2) 10 mL, Intravenous, As needed, Starting on Fri07/28/24 at 1041, Until Fri07/28/24 at 1744, Routine, Holding - Preprocedure, line care Linked Groups Order Group 1: Insert peripheral IV (CANCELED) Once, On Fri07/28/24 at 0000, For 1 occurrence And Saline lock IV (CANCELED) Once, On Fri07/28/24 at 0000, For 1 occurrence And sodium chloride 0.9 % flush 10 mLJump to med 10 mL, Intravenous, Every 12 hours, First dose on Fri07/28/24 at 0005, Until Discontinued, Routine And sodium chloride 0.9 % flush 10 mLJump to med 10 mL, Intravenous, As needed, Starting on Fri07/27/24 at 2359, Until Fri07/28/24 at 1744, Routine, line care Group 2: Insert peripheral IV (CANCELED) Once, On Fri07/28/24 at 1042, For 1 occurrence, Holding - Preprocedure And Saline lock IV (CANCELED) Once, On Fri07/28/24 at 1042, For 1 occurrence, Holding - Preprocedure And sodium chloride 0.9 % flush 10 mLJump to med 10 mL, Intravenous, Every 12 hours, First dose on Fri07/28/24 at 1130, Until Discontinued, Routine, Holding - Preprocedure And sodium chloride 0.9 % flush 10 mLJump to med 10 mL, Intravenous, As needed, Starting on Fri07/28/24 at 1041, Until Fri07/28/24 at 1744, Routine, Holding - Preprocedure, line care Group 3: HYDROmorphone (Dilaudid) injection 0.5 mgJump to med 0.5 mg, Intravenous, Every 2 hour PRN, Starting on Fri07/28/24 at 1051, Until Fri07/28/24 at 1744, Routine, Recovery(Phase II-Outpatient)/On Unit(Inpatient), mild - moderate pain Or HYDROmorphone (Dilaudid) injection 1 mgJump to med 1 mg, Intravenous, Every 2 hour PRN, Starting on Fri07/28/24 at 1051, Until Fri07/28/24 at 1744, Routine, Recovery(Phase II-Outpatient)/On Unit(Inpatient), severe pain Group 4: oxyCODONE (Roxicodone) immediate release tablet 5 mgJump to med 5 mg, Oral, Once as needed, 2 doses, Starting on Fri07/28/24 at 1338, Until Fri07/28/24 at 1744, Routine, Recovery (Phase I only), pain score of 3-5 out of 10 Or oxyCODONE (Roxicodone) immediate release tablet 10 mgJump to med 10 mg, Oral, Once as needed, 2 doses, Starting on Fri07/28/24 at 1338, Until Fri07/28/24 at 1744, Routine, Recovery (Phase I only), pain score of 6-8 out of 10 documented in this encounter Additional Health Concerns Assessment Noted Time PHQ-9 Depression Total Score: 0 07/15/19 12:22 PM EDT A fall risk assessment has been complete d for the patient 07/14/2024 12:22 PM EDT A Body Mass Index follow-up plan has been documented for the patient 05/27/2024 1:13 PM EDT documented as of this encounter Care Teams Consulting Services Manager Relationship Specialty Start Date End Date Efren Roy DO [address] [place] [id number] PCP - General 03/04/23 Efren Roy DO [address] [place] [id number] Pain Medicine 01/03/23 Rosa Maria Beltran APRN [address] [place] [address] [address] [place] [address] Nurse Practitioner Family Medicine 07/21/23 Bobby Vazquez MD [address] [facility] Shantel Cooper [facility] [address] [place] [address] Consulting Physician Medical Oncology 09/17/23 Cally Henderson PA [address] [place] [address] Physician Inside Sales Account Representative Urology 09/17/23 documented as of this encounter
--- OUTSIDE RECORDS SUMMARY | 2024-07-28 09:45 | XMS_ITS | Encounter Summary ---
Author Organization Healthcare Address [address] [place] [address] Care Team Providers Care Patent Drafter Name Role Phone Efren Roy DO Unavailable [phone] Efren Roy DO Primary Care Provider [phone] Rosa Maria Beltran APRN Unavailable [phone] Bobby Vazquez MD Unavailable Cally Henderson Unavailable [phone] Reason for Visit * Reason Comments Abdominal Pain Constipation * Auth/Cert (Routine) Specialty Diagnoses / Procedures Referred By Contac t Referred To Contact Diagnoses Hydronephrosis Hydronephrosis with renal and ureteral calculus obstruction Hydronephrosis, unspecified hydronephrosis type Adal Franklin MD [address] [facility] [address] [place] [address] Phone: tel: fax: [facility] [address] [place] [address] Phone: tel: Referral ID Status Reason Start Date Expiration Date Visits Re quested Visits Authorized [id number] 1 1 Encounter Details Date Type Department Care Team ([facility] st Contact Info) Description 07/28/2024 9:45 AM EDT - 07/28/2024 11:05 AM EDT Surgery [facility] [address] [place] [address] Gloria Velasquez MD [address] [place] [phone] CYSTOSCOPY, WITH URETERAL STENT INSERTION [69217 (CPT )] Surgery Details Date/Time Status Location OR Service Patient Class Case Class Case Type Trauma Case? 07/28/2024 9:45 AM Posted [facility] 19 Urology Inpatient E-Electiv e Panel 1 [...] place to sleep or slept in a longterm (including now)? No 02/28/2023 PHQ-9 Answer Date [...] any time in the past 12 m [facility], were you homeless or living in a longterm (including now)? No 05/27/2024 CAGE ASSESSMENT Answer [...] drink first t tianna in the morning (EYE-RETAIL PHARMACY MANAGER) to steady your nerves or to [...] confirm your location ahead of your appointment) [facility] Urology Department Clinic at [address], 2nd Floor, [facility], [address] [place] [address] Clinic After Hours [facility] Office Building Urology Clinic [address] [facility] [facility] [address] [place] [address] Clinic After Hours documented in this encounter [...] by mouth 2 (two) times a day. 34805 mL 5 06/16/2024 ondansetron ODT (Zofran-ODT) 4 [...] at . Nights, weekends and holidays, call [facility] at and ask for the Urology Resident supervisor home restoration service. Call [phone] if you have any of the following [...] Agree with above assessment and evaluation from resident/FRUIT PACKER. * Op Note - Efren Knight MD - 07/28/2024 1:22 PM EDT Operative Note Date: 07/28/24 Location: [place] OR Name: Adrián Goode, : 1965, Diagnoses: Pre-op Diagnosis Hydronephrosis with renal and ureteral calculus obstruction Post-op Diagnosis Hydronephrosis with renal and ureteral calculus obstruction Procedure(s): Cystoscopy with right retrograde pyelogram Right ureteral stent exchange Attending Surgeon(s): * Gloria Velasquez - Primary Clinical Dietitian(s): * Efren Knight MD - Resident - Assisting Anesthesia: General ASA: III Blood Administration: Blood Product Administration History Date Volume Status Transfuse RBC 04/05/2023 1000 mL Completed 04/05/232006 Estimated Blood Loss: Minimal Drains: * None in log * Implants Type Name Action Serial No. Stent STENT URETERAL [employer] MONOFILAMENT 7F/[id number] - [id number] Implanted Specimen: Specimens ID Source Frozen? A [...] Olivas DO PGY-3, Department of Urology Pager: [phone] Cosigned by Gloria Velasquez MD at 07/28/2024 [...] MD Consult ordered by: Jin Clark MD [facility] Urology Consult Note 07/27/24 Service Requesting [...] admit to uro obs - npo at [place] - to OR for cysto, right stent [...] - also DDD cervical area Bladder cancer ([facility]) 12/2022 Cancer ([facility]) thyroid - surgery only Cervicalgia Neck [...] Procedure Laterality Date COLONOSCOPY PORTACATH PLACEMENT Right VT CYSTO/URETERO/PYELOSCOPY, DX Right 12/20/2022 Procedure: DIAGNOSTIC URETEROSCOPY; Surgeon: Sunday Lopez MD; Location: [facility]; Service: Urology THYROID SURGERY N/A Thyroid Surgery from [employer] UPPER GASTROINTESTINAL ENDOSCOPY [3] Family History Problem [...] 07/28/24 0001 Do NOT transfer patient to [facility] without chief resident or attending apporval [...] 1.16 Improving from recent admission when had CAROLS with Cr 1.43 [KAT] 2210 WBC, Urine: [...] None Disposition Admit Admitting/Attending Physician: ADAL FRANKLIN [[id number]] Provider Care Team: URO ONCOLOGY [[id number]] Are [...] Procedure Laterality Date COLONOSCOPY PORTACATH PLACEMENT Right VT CYSTO/URETERO/PYELOSCOPY, DX Right 12/20/2022 Procedure: DIAGNOSTIC URETEROSCOPY; Surgeon: Sunday Lopez MD; Location: [facility]; Service: Urology THYROID SURGERY N/A [facility] UPPER GASTROINTESTINAL ENDOSCOPY [3] Family [...] Description 08/27/2024 1:00 PM EDT Office Visit [facility] Multidisciplinary Oncology Clinic [address] [place] [phone] Bobby Vazquez MD 800 [facility] [address] [place] [phone] 08/27/2024 1:00 PM EDT Clinical Support [facility] Multidisciplinary Oncology Clinic [address] [place] [phone] 08/27/2024 2:30 PM EDT Appointment [facility] 2 [address] [place] [phone] 10/19/2024 11:30 AM EDT Office Visit [facility] Multidisciplinary Oncology Clinic [address] [place] [phone] Kym Romero, INVENTORY AUDITOR 800 [facility] [address] [place] [address] 11/24/2024 11:00 AM EDT Office Visit [facility] Multidisciplinary Oncology Clinic [address] [place] [phone] Adal Franklin MD [address] [facility] [address] [place] [phone] 12/15/2024 1:00 PM EDT Office Visit [facility] [address] [place] [address] Efren Fallon MD 110 [facility] [address] [place] [address] 12/29/2024 9:30 AM EDT Clinical Support [facility] [address] [facility], 2nd [place] [address] 12/29/2024 10:00 AM EDT Office Visit [facility] [address] [facility], 2nd [place] [address] Carlito Mccartney MD [address] [facility] [address] [place] [phone] 03/23/2025 10:40 AM EST Office Visit [facility] [address] [facility], [address] [place] [address] Arabella Romero, INVENTORY AUDITOR [address] [place] [phone] documented as of this encounter Procedures Procedure Name Priority Date/Time Associated Diagnosis Comments FL LESS THAN 1 HOUR (NON-REPORTABLE) Routine 07/28/2024 1:42 PM EDT URINE CULTURE Routine 07/28/2024 1:32 PM EDT Hydronephrosis with renal and ureteral calculus obstruction VT CYSTOSCOPY,INSERT URETERAL STENT 07/28/2024 12:39 PM EDT [...] at day 1 07/29/2024 11:09 AM EDT [facility] Urine Right kidney structure / Unknown 07/28/2024 1:32 PM EDT 07/28/2024 2:03 PM EDT Comment:Pre-op diagnosis: Hydronephrosis with renal and ureteral calculus obstruction [N13.2] Gloria Velasquez MD LAB MICROBIOLOGY - GENERAL O RDERABLES Final Result [facility] [address] [place] [address] * CT Abdomen Pelvis w IV Contrast [...] MD LAB URINE ORDERABLES Fi nal Result [facility] [address] [place] [address] * Urine [place] Panel (07/27/2024 7:51 PM EDT) Extra Reflex urine culture not indicated 07/27/2024 10:01 PM EDT [facility] Urine Urine specimen obtained by clean catch procedure / Unknown Non-blood Collection / Unknown 07/27/2024 7:51 PM EDT 07/27/2024 8:04 PM EDT Jin Clark MD LAB URINE ORDERABLES Fi nal Result [facility] [address] [place] [address] * (ABNORMAL) Urinalysis with reflex microscopic (Culture NOT Included) (07/27/2024 7:51 PM EDT) Color, Urine Dark Yellow LAB URINALYSIS - AUTOMATED METHOD 07/27/2024 9:44 PM EDT [facility] Clarity, Urine Clear LAB URINALYSIS - AUTOMATED METHOD 07/27/2024 9:44 PM EDT [facility] Spec [facility], Urine 1.008 1.005 - 1.030 LAB URINALYSIS - AUTOMATED METHOD 07/27/2024 9:44 PM EDT [facility] pH, Urine 7.0 5.0 - 8.0 LAB URINALYSIS - AUTOMATED METHOD 07/27/2024 9:44 PM EDT [facility] Protein, Urine 100(A) Negative mg/dL LAB URINALYSIS - AUTOMATED METHOD 07/27/2024 9:44 PM EDT [facility] Glucose, Urine Negative Negative mg/dL LAB URINALYSIS - AUTOMATED METHOD 07/27/2024 9:44 PM EDT [facility] Ketones, Urine Negative Negative mg/dL LAB URINALYSIS - AUTOMATED METHOD 07/27/2024 9:44 PM EDT [facility] Blood, Urine Large(A) Negative LAB URINALYSIS - AUTOMATED METHOD 07/27/2024 9:44 PM EDT [facility] Bilirubin, Urine Negative Negative LAB URINALYSIS - AUTOMATED METHOD 07/27/2024 9:44 PM EDT [facility] Urobilinogen, Urine 1.0 0.2 to 1.0 mg/dL LAB URINALYSIS - AUTOMATED METHOD 07/27/2024 9:44 PM EDT [facility] Leukocytes, Urine Small(A) Negative LAB URINALYSIS - AUTOMATED METHOD 07/27/2024 9:44 PM EDT [facility] Nitrite, Urine Positive(A) Negative LAB URINALYSIS - AUTOMATED METHOD 07/27/2024 9:44 PM EDT [facility] RBC, Urine 3 0 to 3 /HPF LAB URINALYSIS - AUTOMATED METHOD 07/27/2024 9:44 PM EDT [facility] Comment: Confirmed This result was previously suppressed from the chart. WBC, Urine 0 - 5 0 to 5 /HPF LAB URINALYSIS - AUTOMATED METHOD 07/27/2024 9:44 PM EDT [facility] Comment:This result was prev iously suppressed from the chart. Squamous Epithelial Cells 0 - 2 0 to 5 /HPF LAB URINALYSIS - AUTOMATED METHOD 07/27/2024 9:44 PM EDT [facility] Comment:This result was prev iously suppressed from the chart. Hyaline Casts 0 - 2 0 to 5 /LPF LAB URINALYSIS - AUTOMATED METHOD 07/27/2024 9:44 PM EDT [facility] Comment:This result was prev iously suppressed from the chart. Bacteria, Urine Present Negative LAB URINALYSIS - AUTOMATED METHOD 07/27/2024 9:44 PM EDT [facility] Comment:This result was prev iously suppressed from the chart. Urine Urine specimen obtained by clean catch procedure / Unknown Non-blood Collection / Unknown 07/27/2024 7:51 PM EDT 07/27/2024 7:54 PM EDT [facility] - 07/27/2024 9:44 PM EDT Performed by manual method us Jin Clark MD LAB URINE ORDERABLES Fi nal Result [facility] [address] [place] [address] * Procalcitonin (07/27/2024 6:50 PM EDT) Procalcitonin, Plasma 0.07 <0.09 ng/mL 07/27/2024 7:45 PM EDT [facility] Blood Venous blood specimen / Unknown Venipuncture / Unknown 07/27/2024 6:50 PM EDT 07/27/2024 7:04 PM EDT [facility] - 07/27/2024 7:45 PM EDT Procalcitonin [...] predict 28 day mortality risk. Please consult [email or web address]-[email or web address] for more information. Test performed at [facility], Core Laboratory. Jin Clark MD LAB BLOOD ORDERABLES Fi nal Result Performing Organization Address City/[facility]/[place] [address] * Lactic acid, venous (07/27/2024 6:50 PM EDT) Lactate, Venous, Whole Blood 1.9 0.5 - 2.2 mmol/L LAB HEMATOLOGY METHOD 07/27/2024 7:14 PM EDT [facility] Blood Venous blood specimen / Unknown Venipuncture / Unknown 07/27/2024 6:50 PM EDT 07/27/2024 7:09 PM EDT Jin Clark MD LAB BLOOD ORDERABLES Fi nal Result Performing Organization Address City/[facility] Co de Phone Number [facility] [address] [place] [address] * Lipase (07/27/2024 6:50 PM EDT) Lipase, Plasma 25 19 - 63 U/L 07/27/2024 7:45 PM EDT [facility] Blood Venous blood specimen / Unknown Venipuncture / Unknown 07/27/2024 6:50 PM EDT 07/27/2024 7:04 PM EDT Jin Clark MD LAB BLOOD ORDERABLES Fi nal Result Performing Organization Address City/[facility]/ZIP Co de Phone Number [facility] [address] [place] [address] * (ABNORMAL) CMP (07/27/2024 6:50 PM EDT) Glucose, Plasma 100(H) 74 - 99 mg/dL 07/27/2024 7:45 PM EDT [facility] BUN, Plasma 11 8 - 23 mg/dL 07/27/2024 7:45 PM EDT [facility] Creatinine, Plasma 1.16 0.70 - 1.20 mg/dL 07/27/2024 7:45 PM EDT [facility] BUN/Creatinine Ratio 9 07/27/2024 7:45 PM EDT [facility] Sodium, Plasma 131(L) 136 - 145 mmol/L 07/27/2024 7:45 PM EDT [facility] Potassium, Plasma 4.1 3.6 - 4.9 mmol/L 07/27/2024 7:45 PM EDT [facility] Chloride, Plasma 95(L) 97 - 107 mmol/L 07/27/2024 7:45 PM EDT [facility] CO2, Plasma 23 22 - 29 mmol/L 07/27/2024 7:45 PM EDT [facility] Anion Gap 13 6 - 16 mmol/L 07/27/2024 7:45 PM EDT [facility] Total Calcium, Plasma 9.2 8.9 - 10.2 mg/dL 07/27/2024 7:45 PM EDT [facility] Total Protein 7.0 6.3 - 7.9 g/dL 07/27/2024 7:45 PM EDT [facility] Albumin, Plasma 3.8 3.5 - 5.2 g/dL 07/27/2024 7:45 PM EDT [facility] AST, Plasma 48 10 - 50 U/L 07/27/2024 7:45 PM EDT [facility] ALT, Plasma 37 10 - 50 U/L 07/27/2024 7:45 PM EDT [facility] Alkaline Phosphatase, Plasma 109 40 - 115 U/L 07/27/2024 7:45 PM EDT [facility] Total Bilirubin, Plasma 0.2 0.2 - 1.1 mg/dL 07/27/2024 7:45 PM EDT [facility] eGFRcr 72.1 mL/min/1.7 3m*2 07/27/2024 7:45 PM EDT [facility] Comment:Reported eGFRcr in m L/min/1.73m2 is based the CKD-EPI 2020 equation that does not use a race coefficient. Blood Venous blood specimen / Unknown Venipuncture / Unknown 07/27/2024 6:50 PM EDT 07/27/2024 7:04 PM EDT us Jin Clark MD LAB BLOOD ORDERABLES Fi nal Result [facility] [address] [place] [address] * (ABNORMAL) CBC w/diff (07/27/2024 6:50 PM EDT) WBC Count 9.93 3.70 - 10.30 10*3/uL LAB HEMATOLOGY METHOD 07/27/2024 7:46 PM EDT [facility] RBC Count 4.06(L) 4.60 - 6.10 10*6/uL LAB HEMATOLOGY METHOD 07/27/2024 7:46 PM EDT [facility] HGB 10.5(L) 13.7 - 17.5 g/dL LAB HEMATOLOGY METHOD 07/27/2024 7:46 PM EDT [facility] HCT 32.2(L) 40.0 - 51.0 % LAB HEMATOLOGY METHOD 07/27/2024 7:46 PM EDT [facility] Platelet Count 249 155 - 369 10*3/uL LAB HEMATOLOGY METHOD 07/27/2024 7:46 PM EDT [facility] MCV 79 79 - 98 fL LAB HEMATOLOGY METHOD 07/27/2024 7:46 PM EDT [facility] MCH 25.9(L) 26.0 - 32.0 pg LAB HEMATOLOGY METHOD 07/27/2024 7:46 PM EDT [facility] MCHC 32.6 30.7 - 35.5 g/dL LAB HEMATOLOGY METHOD 07/27/2024 7:46 PM EDT [facility] RDW 15.7(H) 11.5 - 14.5 % LAB HEMATOLOGY METHOD 07/27/2024 7:46 PM EDT [facility] MPV 9.8 8.8 - 12.5 fL LAB HEMATOLOGY METHOD 07/27/2024 7:46 PM EDT [facility] nRBC 0.0 <=0.0 per 100 WBCs LAB HEMATOLOGY METHOD 07/27/2024 7:46 PM EDT [facility] Differential Type Automated LAB HEMATOLOGY METHOD 07/27/2024 7:46 PM EDT [facility] Neutrophils % 77 % LAB HEMATOLOGY METHOD 07/27/2024 7:46 PM EDT [facility] Lymphocytes % 11 % LAB HEMATOLOGY METHOD 07/27/2024 7:46 PM EDT [facility] Monocytes % 10 % LAB HEMATOLOGY METHOD 07/27/2024 7:46 PM EDT [facility] Eosinophils % 1 % LAB HEMATOLOGY METHOD 07/27/2024 7:46 PM EDT [facility] Basophils % 0 % LAB HEMATOLOGY METHOD 07/27/2024 7:46 PM EDT [facility] Immature Granulocytes % 1 % LAB HEMATOLOGY METHOD 07/27/2024 7:46 PM EDT [facility] Neutrophils Absolute 7.63(H) 1.60 - 6.10 10*3/uL LAB HEMATOLOGY METHOD 07/27/2024 7:46 PM EDT [facility] Lymphocytes Absolute 1.11(L) 1.20 - 3.90 10*3/uL LAB HEMATOLOGY METHOD 07/27/2024 7:46 PM EDT [facility] Monocytes Absolute 1.02(H) 0.30 - 0.90 10*3/uL LAB HEMATOLOGY METHOD 07/27/2024 7:46 PM EDT [facility] Eosinophils Absolute 0.06 0.00 - 0.50 10*3/uL LAB HEMATOLOGY METHOD 07/27/2024 7:46 PM EDT [facility] Basophils Absolute 0.03 0.00 - 0.10 10*3/uL LAB HEMATOLOGY METHOD 07/27/2024 7:46 PM EDT [facility] Immature Granulocytes Absolute 0.08(H) 0.00 - 0.06 10*3/uL LAB HEMATOLOGY METHOD 07/27/2024 7:46 PM EDT [facility] Blood Venous blood specimen / Unknown Venipuncture / Unknown 07/27/2024 6:50 PM EDT 07/27/2024 7:04 PM EDT Narrative [facility] - 07/27/2024 7:46 PM EDT Therapeutic decision making should be based on absolute values, rather than percentages. us Jin Clark MD LAB BLOOD ORDERABLES Fi nal Result [facility] [address] [place] [address] documented in this encounter Visit Diagnoses Diagnosis [...] Transfer Provider - Reason: Patient in procedure)1744 ([facility] Unhold - Provider: Automatic Discharge Provider) HYDROmorphone [...] at 1855, Administer over 2 Hours, Routine 1856 (New Bag - Provider: Karma Hopkins)2058 (Stopped [...] (Given - Provid er: Marilee Quiroga RN)1037 ([facility] Hold - Provider: Automatic Transfer Provider - Reason: Patient in procedure)1744 ([facility] Unhold - Provider: Automatic Discharge Provider) piperacillin-tazobactam (Zosyn) 4.5 g in sodium chloride 0.9% 100 mL IVPB (vial adapter required) (COMPLETED) 4.5 g, Intravenous, Once, 1 dose, On Fri07/27/24 at 1855, Routine 1858 (New Bag - Provider: Karma Hopkins)193 (Stopped - Provider: rAa Woodruff, GIN) Povidone-Iodine 5 % swab solution 1 Application (COMPLETED) Nasal, Once, 1 dose, On Fri07/28/24 at 1130, Routine 1102 (Given - Provid er: Makayla Burden, GIN) sodium chloride 0.9 % flush 10 [...] ([facility] Unhold - Provider: Automatic Discharge Provider) iohexol [...] Transfer Provider - Reason: Patient in procedure)174 ([facility] Unhold - Provider: Automatic Discharge Provider) ondansetron (Zofran) injection 4 mg 4 mg, Intravenous, Once as needed, 1 dose, Starting on Fri07/28/24 at 1338, Until Fri07/28/24 at 1744, Routine, Recovery (Phase I only), nausea, vomiting oxyCODONE (Roxicodone) immediate release tablet 10 mg 10 mg, Oral, Every 6 hours PRN, Starting on Fri07/28/24 at 0656, Until Fri07/28/24 at 1744, Routine, severe pain 1037 ([facility] Hold - Pro vider: Automatic Transfer Provider - Reason: Patient in procedure)1743 ([facility] Unhold - Provider: Automatic Discharge Provider) oxyCODONE [...] at 1744, Routine, pain, discomfort, irritation 1037 ([facility] Hold - Pro vider: Automatic Transfer Provider - Reason: Patient in procedure)174 ([facility] Unhold - Provider: Automatic Discharge Provider) sodium chloride 0.9 % flush 10 mL(Linked Group 1) 10 mL, Intravenous, As needed, Starting on Fri07/27/24 at 2359, Until Fri07/28/24 at 1744, Routine, line care 1037 ([facility] Hold - Pro vider: Automatic Transfer Provider - Reason: Patient in procedure)1744 ([facility] Unhold - Provider: Automatic Discharge Provider) sodium [...] documented as of this encounter Care Teams Patent Drafter Relationship Specialty Start Date End Date Efren Roy DO [address] [place] [address] PCP - General 03/04/23 Efren Roy DO [address] [place] [address] Pain Medicine 01/03/23 Rosa Maria Beltran APRN [address] [place] [phone] Nurse Practitioner Family Medicine 07/21/23 Bobby Vazquez MD [address] [facility] [address] [place] [address] Consulting Physician Medical Oncology 09/17/23 Cally Henderson PA [address] [place] [address] Physician Clinical Dietitian Urology 09/17/23 documented as of this encounter
--- OUTSIDE RECORDS SUMMARY | 2024-07-28 12:54 | XMS_ITS | Encounter Summary ---
Author Organization Healthcare Address [address] [place] [address] Care Team Providers Care Chemist Internship Name Role Phone Efren Roy DO Unavailable [phone] Efren Roy DO Primary Care Provider [phone] Rosa Maria Beltran APRN Unavailable [phone] Bobby Vazquez MD Unavailable Cally Henderson Unavailable [phone] Reason for Visit * Auth/Cert (Routine) Specialty Diagnoses / Procedures Referred By Ric t Referred To Contact Diagnoses Hydronephrosis Hydronephrosis with renal and ureteral calculus obstruction Hydronephrosis, unspecified hydronephrosis type Adal Franklin MD [address] [facility] [address] [place] [address] Phone: tel: fax: [facility] [address] [place] [address] Phone: tel: Referral ID Status Reason Start Date Expiration Date Visits Re quested Visits Authorized [id number] 1 1 Encounter Details Date Type Department Care Team (Late st Contact Info) Description 07/28/2024 12:54 PM EDT Anesthesia Event [facility] [address] [place] [address] Juvenal Royal MD [address] [place] [address] Fariha Kwon PA [address] [place] [address] Anesthesia Record Procedure Summary Procedure [...] place to sleep or slept in a mcc (including now)? No 02/28/2023 PHQ-9 Answer Date [...] time in the past 12 m [facility], were you homeless or living in a mcc (including now)? No 05/27/2024 CAGE ASSESSMENT Answer [...] drink first t tianna in the morning (EYE-HIGH SCHOOL GUIDANCE COUNSELOR) to steady your nerves or to get rid of a hangover? 0 02/27/2023 CAGE Questionnaire Score 0 023 Utilities Answer Date Recorded In the past 12 months has th [employer] electric, gas, oil, or water company threatened [...] Notes * Anesthesia Postprocedure Evaluation - Miriam Mafyield CRNA - 07/28/2024 1:51 PM EDT Patient: [...] and Staff Patient location during procedure: OR PIPING ENGINEER: Miriam Mayfield CRNA Performed: PIPING ENGINEER Patient Condition Indications for airway management: anesthesia [...] CYSTOSCOPY, WITH URETERAL STENT INSERTION (Right) Location: [facility] [place] OR Surgeons: Adal Franklin MD HPI Adrián [...] Functions Testing Results: No results found for: LAP7YWH , EMJ4KTIO , BYZ6GWS , FVCPRED Body mass index is 25.54 [...] have CAD, CHF, dysrhythmias, pacemaker or past UT. hypertension: Respiratory: no asthma: no COPD: Respiratory ROS additional comments: Former smoker HEENT: missing teeth.Does not have loose teeth. Neurological: no seizures: Did not have a cerebrovascular accident.Does not have TIA. Musculoskeletal: Does not have cervical spine limited mobility. [facility] additional comments: cervical DDD with limited mobility [...] Plan ASA 3 Plan was reviewed with: PIPING ENGINEER and attending Anesthesia technique(s) discussed with the [...] Procedure Laterality Date COLONOSCOPY PORTACATH PLACEMENT Right SC CYSTO/URETERO/PYELOSCOPY, DX Right 12/20/2022 Procedure: DIAGNOSTIC URETEROSCOPY; Surgeon: Sunday Lopez MD; Location: [facility] Service: Urology THYROID SURGERY N/A Thyroid Surgery from [facility] [place] UPPER GASTROINTESTINAL ENDOSCOPY [3] Allergies Allergen Reactions Enfortumab Vedotin Other - please document in the comment field Back pain documented in this encounter Plan of Treatment Upcoming Encounters Date Type Department Care Team (Late st Contact Info) Description 08/27/2024 1:00 PM EDT Office Visit [facility] Multidisciplinary Oncology Clinic [address] [place] [address] Bobby Vazquez MD 800 [facility] Shantel Cooper [address] [address] 08/27/2024 1:00 PM EDT Clinical Support [facility] Multidisciplinary Oncology Clinic [address] [place] [address] 08/27/2024 2:30 PM EDT Appointment [facility] Infusion Clinic 2 [address] [place] [address] 10/19/2024 11:30 AM EDT Office Visit [facility] [address] [place] [address] Kym Romero, THERAPIST ASST 800 [facility] Shantel [address] [place] [address] 11/24/2024 11:00 AM EDT Office Visit [facility] [address] [place] [address] Adal Franklin MD [address] [place] [address] 12/15/2024 1:00 PM EDT Office Visit [facility] [address] [facility] [place] [address] Efren Fallon MD 110 [facility] [address] [place] [address] 12/29/2024 9:30 AM EDT Clinical Support [facility] [address] [facility], [address]nd [place] [address] 12/29/2024 10:00 AM EDT Office Visit [facility] [address] [facility], [address] [place] [address] Carlito Mccartney MD [facility] [facility] [address] [place] [address] 03/23/2025 10:40 AM EST Office Visit [facility] [address] [facility], [address] [place] [address] Arabella Romero, THERAPIST ASST [address] [place] [address] documented as of this encounter Procedures Procedure Name Priority Date/Time Associated Diagnosis Comments PB ANESTHESIA PLACEHOLDER Routine 07/28/2024 1:02 PM EDT SC AN ELECTIVE ENDOTRACHEAL AIRWAY Routine 07/28/2024 1:02 PM EDT documented in this encounter Results * SC AN ELECTIVE ENDOTRACHEAL AIRWAY, PB ANESTHESIA PLACEHOLDER (07/28/2024 1:02 PM EDT) Narrative Miriam Mayfield CRNA - 07/28/2024 1:02 PM EDT Miriam Mayfield CRNA 07/28/2024 1:14 PM Airway Date/Time: 07/28/2024 1:02 PM Reason: elective Airway not difficult General Information and Staff Patient location during procedure: OR PIPING ENGINEER: Miriam Mayfield CRNA Performed: PIPING ENGINEER Patient Condition Indications for airway management: anesthesia [...] (+) ETCO2, Atraumatic, No change to dentition. Juvenal Royal MD ANESTHESIA ORDERABLES Final Res [...] documented as of this encounter Care Teams Chemist Internship Relationship Specialty Start Date End Date Efren Roy DO [address] [place] [phone] PCP - General 03/04/23 Efren Roy DO [address] [place] [phone] Pain Medicine 01/03/23 Rosa Maria Beltran APRN [address] [place] [address] [address] [place] [address] Nurse Practitioner Family Medicine 07/21/23 Bobby Vazquez MD 800 [facility] [address] [place] [address] Consulting Physician Medical Oncology 09/17/23 Cally Henderson PA [address] [facility] [address] [place] [address] Physician Webbing Seamer [employer] Urology 09/17/23 documented as of this encounter
--- OUTSIDE RECORDS SUMMARY | 2024-08-02 09:30 | XMS_ITS | Encounter Summary ---
Author Organization [facility] Address [address] [place] [address] Care Team Providers Care Underground Electrician Name Role Phone Efren Roy DO Unavailable [phone] Efren Roy DO Primary Care Provider [phone] Rosa Maria Beltran APRN Unavailable [phone] Bobby Vazquez MD Unavailable Cally Henderson Unavailable [phone] Reason for Visit * Reason Comments Labs PORT labs Encounter Details Date Type Department Care Team (Latest Contact Info) Description 08/02/2024 9:30 AM EDT Clinical Support [facility] [address] [place] [address] Post-surgical hypothyroidism Social History Tobacco Use Types [...] place to sleep or slept in a snf (including now)? No 02/28/2023 PHQ-9 Answer Date [...] any time in the past 12 m [facility], were you homeless or living in a snf (including now)? No 05/27/2024 CAGE ASSESSMENT Answer [...] drink first t tianna in the morning (EYE-PLANNING OFFICIAL) to steady your nerves or to get [...] Description 08/27/2024 1:00 PM EDT Office Visit [facility] Multidisciplinary Oncology Clinic [address] [place] [address] Bobby Vazquez MD 800 [facility] Shantel Barrerason [address] [address] 08/27/2024 1:00 PM EDT Clinical Support [facility] Multidisciplinary Oncology Clinic [address] [place] [address] 08/27/2024 2:30 PM EDT Appointment [facility] Infusion Clinic 2 [address] [place] [address] 10/19/2024 11:30 AM EDT Office Visit [facility] Multidisciplinary Oncology Clinic [address] [place] [address] Kym Romero, JYOTSNA 800 [facility] Shantel Barrerason [address] [address] 11/24/2024 11:00 AM EDT Office Visit [facility] [address] [place] [address] Adal Franklin MD [address] [facility] [address] [place] [address] 12/15/2024 1:00 PM EDT Office Visit [facility] [address] [place] [address] Efren Fallon MD [address] [place] [address] 12/29/2024 9:30 AM EDT Clinical Support [facility] [address] [facility], [address] [place] [address] 12/29/2024 10:00 AM EDT Office Visit [facility] [address] [facility], [address] [place] [address] Carlito Mccartney MD [address] [facility] 125 [place] [address] 03/23/2025 10:40 AM EST Office Visit [facility] [address] [facility], [address] [place] [address] Arabella Romero, RUG SETTER VELVET [address] [place] [address] documented as of this encounter Procedures Procedure Name Priority Date/Time Associated Diagnosis Comments TSH Routine 08/02/2024 9:30 AM EDT Post-surgical hypothyroidism FREE T4, PLASMA Routine 08/02/2024 9:30 AM EDT Post-surgical hypothyroidism documented in this encounter Results * T4, free (08/02/2024 9:30 AM EDT) Free T4, Plasma 1.6 0.8 - 1.7 ng/dL 08/02/2024 10:13 AM EDT [facility] Blood Blood sample taken from central line / Unknown (Port) Long-term Catheter / Unknown 08/02/2024 9:30 AM EDT 08/02/2024 9:36 AM EDT us Carlito Mccartney MD LAB BLOOD ORDERABLES Final Resu lt Performing Organization Address [facility] Co de Phone Number [facility] [address] [place] [address] * (ABNORMAL) TSH (08/02/2024 9:30 AM EDT) Thyroid Stimulating Hormone, Plasma 6.39(H) 0.40 - 4.20 uIU/mL 08/02/2024 10:13 AM EDT [facility] Blood Blood sample taken from central line / Unknown (Port) Long-term Catheter / Unknown 08/02/2024 9:30 AM EDT 08/02/2024 9:36 AM EDT us Carlito Mccartney MD LAB BLOOD ORDERABLES Final Resu lt Performing Organization Address [facility] [place] [address] documented in this encounter Visit Diagnoses Diagnosis [...] documented as of this encounter Care Teams Underground Electrician Relationship Specialty Start Date End Date Efren Roy DO [address] [place] [address] PCP - General 03/04/23 Efren Roy DO [address] [place], [place] [address] Pain Medicine 01/03/23 Rosa Maria Beltran APRN [address] [facility] 125 [place] [address] Nurse Practitioner Family Medicine 07/21/23 Bobby Vazquez MD 800 [facility] [address] [place] [address] Consulting Physician Medical Oncology 09/17/23 Cally Henderson PA [address] [facility] [address] [place] [address] Physician Prosthetist Urology 09/17/23 documented as of this encounter
--- OUTSIDE RECORDS SUMMARY | 2024-08-02 10:00 | XMS_ITS | Encounter Summary ---
Author Organization [facility] Address [address] [place] [address] Care Team Providers Care Cutter Operator Helper Name Role Phone Efren Roy DO Unavailable [phone] Efren Roy DO Primary Care Provider Rosa Maria Beltran APRN Unavailable [phone] Bobby Vazquez MD Unavailable Cally Henderson Unavailable [phone] Reason for Visit * Reason Comments Follow-up Encounter Details Date Type Department Care Team (Late st Contact Info) Description 08/02/2024 10:00 AM EDT Office Visit [facility] Res[facility] [address] [facility], 2nd [place] [address] Carlito Mccartney MD [address] [place] [address] Post-surgical hypothyroidism (Primary Dx); H/O malignant neoplasm of thyroid; Sinus tachycardia; Fatigue, unspecified type Social History Tobacco Use Types Packs/Day Years Used Date Smoking Tobacco: Never Cigarettes 1.5 30 - 2006 Passive Smoke Exposure: Yes Smokeless Tobacco: Current Snuff Tobacco Cessation:Ready to Q uit: No; Counseling Given: No Comments:10 x daily Alcohol [...] time in the past 12 m [facility], were you homeless or living [...] drink first t tianna in the morning (EYE-GREEN HOUSE MANAGER) to steady your nerves or to get rid of a hangover? 0 02/27/2023 CAGE Questionnaire Score 0 023 Utilities Answer Date Recorded In the past 12 months has th e [employer], gas, oil, or water company threatened to [...] Sign Reading Time Taken Comments Blood Pressure 105/70 08/02/2024 8:47 AM EDT Pulse 110 08/02/2024 8:47 AM EDT Temperature 36.8 C (98.3 F) 08/02/2024 8:47 AM EDT Respiratory Rate 18 08/02/2024 8:47 AM EDT Oxygen Saturation 98% 08/02/2024 8:47 AM EDT Inhaled Oxygen Concentration - - Weight 79.3 kg (174 lb 13.2 oz) 08/02/2024 8:47 AM EDT Height 177.8 cm (5' 10 ) 08/02/2024 8:47 AM EDT Body Mass Index 25.08 08/02/2024 8:47 AM EDT documented in this encounter Miscellaneous Notes * Progress Notes - Carlito Mccartney MD - 08/02/2024 10:00 AM EDT Reason for visit: F/U on Thyroid cancer and Hypothyroidism. Subjective Adrián Goode is a 59 y.o. male. The Pt is here w/ his girlfriend who contributed to the history. His previous visit at the [facility] was on 05/05/24. He has been following up w/ Medical Oncology for metastatic upper tract urothelial cancer. Reviewedthe office note by Kym Romero APRN dated 07/15/24. Due to progression on scans, Erdafitinib 8mgdaily was stopped and he was prescribed Docetaxel per Dr. Vazquez. His thyroid cancer history dates back to about 2014 when he was found w/ a goiter on exam by his PCP. A thyroid US was done and the Pt was subsequently scheduled for a Bx but it was reportedly not successful so, he was scheduled for thyroid surgery which he had in 2 steps in 11/2014 and in 01/2015. His path showed a L-sided 0.4 cm PTC- FV. The patient does not report problems with swallowing. No hoarseness. The patient reports fatigue, cold intolerance, and anxiousness. He denies tremulousness, palpitations, and sweating. No weight loss compared to 05/2024. The patient is on (Tirosint) 125 MCG daily (changed to tirosint after his labs in 10/2023). He takesit qam before eating. There is no personal history of radiation exposure prior to thyroid cancer Dx. There is no family history of thyroid cancer. There is family history of thyroid problems, hypothyroidism in sister. Objective VS: Blood pressure 105/70, pulse 110, temperature 36.8 ??C (98.3 ??F), temperature source Oral, resp. rate 18, height 1.778 m (5' 10 ), weight 79.3 kg (174 lb 13.2 oz), SpO2 98%. Body mass index is 25.08 kg/m??. Wt 79.7 kg (175 lb 11.3 oz) on 05/05/2024. Wt (180 lb 12.4 oz) on 02/04/24. PE: Constitutional: Appearance: chronically ill-appearing. HENT: NL voice. Neck: Thyroidectomy scar. No neck LN enlargement. Cardiovascular: Heart Rate: sinus tachycardia. NL S1 S2. Pulmonary: Effort: Pulmonary effort is normal. No wheezes / crackles. Neurological: Mental Status: alert. No tremor. Tests Reviewed: TSH Free T4 0.40 - 4.20 uIU/mL 0.8 - 1.7 ng/dL 02/27/2023 46.09 1.0 03/14/2023 46.00 04/05/2023 15.59 1.4 05/07/2023 18.40 06/18/2023 15.70 1.2 07/16/2023 0.55 07/21/2023 1.97 1.4 07/30/2023 8.35 09/10/2023 10.20 10/15/2023 24.50 1.2 02/04/24 3.43 1.4 05/05/2024 05/24/2024 06/16/2024 08/02/2024 Free T4 0.8 - 1.7 ng/dL 1.7 1.5 1.4 1.6 TSH 0.40 - 4.20 uIU/mL 0.45 4.17 6.11 (H) 6.39 (H) 08/06/23 at 11:47 am ACTH 7.2 - 63 pg/mL 17.1 Cortisol Before 10am: 3.7- 9.4. After 5pm: 2.9-17.3 7.9 PTH Intact Total 9 - 77 pg/mL 23 07/27/2024 CREATININE 1.16 POTASSIUM 4.1 SODIUM 131 CALCIUM 9.2 AST 48 ALT 37 ALP 109 WBC 9.3 HEMOGLOBIN 10.5 PLATELETS 249 Thyroid Path 11/15/14 LEFT SUPERIOR PARATHYROID, BIOPSY (A): - CELLULAR PARATHYROID TISSUE. TOTAL LEFT THYROID, SUBTOTAL RIGHT (13.8 GM), EXCISION (B): - MARKED CHRONIC CLASSIC LYMPHOCYTIC THYROIDITIS (CARLOS'S TYPE) WITH 1.2 CM HURTHLE CELL NODULE. 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 - INCLUDED BENIGN LYMPH NODES (0/2). Thyroid Path 01/11/15 RIGHT SUPERIOR PARATHYROID, BIOPSY (A): - NORMOCELLULAR PARATHYROID TISSUE. THYROID, RIGHT LOBE, COMPLETION THYROIDECTOMY (B): - FLORID CHRONIC LYMPHOCYTIC THYROIDITIS WITH FOCAL PERITHYROIDAL FIBROSIS AND SUTURE GRANULOMATA (STATUS POST LEFT THYROID LOBECTOMY AND ISTHMUSECTOMY). - NO MALIGNANCY IDENTIFIED. Brain MRI 08/14/23: No evidence of brain metastases. Assessment/Plan Post surgical hypothyroidism The elevated TSH in 01/2023 was in the setting of inconsistency w/ taking LT4 when he was having chemoRX. It gradually improved to NL in early - mid 07/2023 after becoming more consistent taking LT4. However, it went up again on 07/30/23 and in 09/2023 which can be in the setting of decreased GI absorption. I adjusted his LT4 to 137 mcg daily in 08/2023. Recheck TSH still elevated in 10/2023, LT4 tablet form was changed to Ti-rosint for more consistent GI absorption. HIS DOSE WAS DECREASED FROM 137 to 125 MCG DAILY on 05/05/24 due to low-normal TSH, tachycardia, and weight loss. TSH borderline higher than normal but with normal free T4 today. Will continue same dosage and monitor. 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 No SOTO was needed after thyroidectomy. Sinus tachycardia No hypotension or fever. Fatigue Multifactorial. Cortisol and ACTH NL in 08/2023. His calcium NL in 07/2024. PTH WNL in 08/2023. He hasanemia and progression of his urothelial cancer. RTC: 3 months. Tests ordered: TSH FT4 in 3 months. Electronically signed by: Carlito Mccartney MD [facility] [place]. [address] PHONE [phone] FAX: [phone] documented in this encounter Plan of Treatment Upcoming Encounters Date Type Department Care Team (Late st Contact Info) Description 08/27/2024 1:00 PM EDT Office Visit [facility] [address] [place] [address] Bobby Vazquez MD 800 [facility] [address] [place] [address] 08/27/2024 1:00 PM EDT Clinical Support [facility] [address] [place] [address] 08/27/2024 2:30 PM EDT Appointment [facility] 2 [address] [place] [address] 10/19/2024 11:30 AM EDT Office Visit [facility] [address] [place] [address] Kym Romero, AUTOMATIC OUTSOLE CUTTER 800 [facility] [address] [place] [address] 11/24/2024 11:00 AM EDT Office Visit [facility] [address] [place] [address] Adal Franklin MD [address] [facility] [address] [place] [address] 12/15/2024 1:00 PM EDT Office Visit [facility] [address] [facility] [place] [address] Efren Fallon MD [address] [facility] [address] [place] [address] 12/29/2024 9:30 AM EDT Clinical Support [facility] 800 [facility], 2nd [place] [address] 12/29/2024 10:00 AM EDT Office Visit [facility] 800 [facility], [address]nd [place] [address] Carlito Mccartney MD [facility] [address] [place] [address] 03/23/2025 10:40 AM EST Office Visit [facility] Res[facility] 800 [facility], [address]nd [place] [address] Arabella Romero, AUTOMATIC OUTSOLE CUTTER [address] [place] [address] Scheduled Orders Name Type Priority Associated Diagnoses Orde r Schedule Thyroid Stimulating Hormone, Plasma (TSH) Lab Routine Post-surgical hypothyroidism Expected: 11/02/2024 (Approximate), Expires: 02/03/2026 Free T4, Plasma Lab Routine Post-surgical hypothyroidism Expected: 11/02/2024 (Approximate), Expires: 02/03/2026 documented as of this encounter Visit Diagnoses Diagnosis Post-surgical hypothyroidism- Primary Postsurgical hypothyroidism H/O malignant neoplasm of thyroid Sinus tachycardia Other specified cardiac dysrhythmias Fatigue, unspecified type documented in this encounter Additional Health Concerns Assessment Noted Time PHQ-9 Depression Total Score: 0 07/15/19 25 12:22 PM EDT A fall risk assessment has been complete d for the patient 08/02/2024 8:51 AM EDT A Body Mass Index follow-up plan has been documented for the patient 05/27/2024 1:13 PM EDT documented as of this encounter Care Teams Cutter Operator Helper Relationship Specialty Start Date End Date Efren Roy DO [address] [place] [address] PCP - General 03/04/23 Efren Roy DO [address] [place] [address] Pain Medicine 01/03/23 Rosa Maria Beltran APRN [address] [facility] 125 [place] [phone] Nurse Practitioner Family Medicine 07/21/23 Bobby Vazquez MD 800 [facility] [address] [facility] 134 [place] [address] Consulting Physician Medical Oncology 09/17/23 Cally Henderson PA [address] [facility] [address] [place] [address] Physician Pearl Diver Urology 09/17/23 documented as of this encounter
--- OUTSIDE RECORDS SUMMARY | 2024-08-06 11:30 | XMS_ITS | Encounter Summary ---
Author Organization [facility] Address [address] [place] [address] Care Team Providers Care Record Changer Assembler Name Role Phone Efren Roy DO Unavailable [phone] Efren Roy DO Primary Care Provider [phone] Rosa Maria Beltran APRN Unavailable [phone] Bobby Vazquez MD Unavailable Cally Henderson Unavailable [phone] Encounter Details Date Type Department Care Team (Latest Contact Info) Description 08/06/2024 11:30 AM EDT Clinical Support [facility] Multidisciplinary Oncology Clinic [address] [place] [address] Social History Tobacco Use Types Packs/Day Years [...] place to sleep or slept in a jail (including now)? No 02/28/2023 PHQ-9 Answer Date [...] any time in the past 12 m [facility], were you homeless or living in a jail (including now)? 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 0 02/27/2023 CAGE Questionnaire Score 0 023 Utilities Answer Date Recorded In the past 12 months has e [employer], gas, oil, or water [employer] [place] threatened to shut off services in your [...] pleasure in doing things Not at all 08/06/2024 11:03 AM EDT Gretchen Wei Feeling down, depressed, or hopeless Not at all 08/06/2024 11:03 AM EDT Gretchen Wei Patient Health Questionnaire -2 Score 0 08/06/2024 11:03 AM EDT Gretchen Wei * Question Answer Date of Assessment Author Thoughts that you would be b ramin off or hurting yourself in some way Not at all 08/06/2024 11:03 AM EDT Gretchne Wei documented as of this encounter Miscellaneous Notes * Clinician Note - Purvi Morales RN - 08/06/2024 11:30 AM EDT Patient was accessed without difficulty. Good blood return. Labs obtained and sent to lab. Patient complained that the antimicrobial dressing and he began to complain of pain at the insertion site. Changed to a transparent dressing and the pain went away. Heparin given. documented in this encounter Plan of Treatment Upcoming Encounters Date Type Department Care Team (Late st Contact Info) Description 08/27/2024 1:00 PM EDT Office Visit [facility] Multidisciplinary Oncology Clinic [address] [place] [address] Bobby Vazquez MD 800 [facility] Kenneth [facility] 134 [place] [address] 08/27/2024 1:00 PM EDT Clinical Support [facility] [address] [place] [address] 08/27/2024 2:30 PM EDT Appointment [facility] 2 [address] [place] [address] 10/19/2024 11:30 AM EDT Office Visit [facility] Multidisciplinary Oncology Clinic [address] [place] [address] Kym Romero, MARKETING EXECUTIVE 800 [facility] [address] [place] [address] 11/24/2024 11:00 AM EDT Office Visit [facility] Multidisciplinary Oncology Clinic [address] [place] [address] Adal Franklin MD [address] [place] [address] 12/15/2024 1:00 PM EDT Office Visit [facility] [address] [place] [address] Efren Fallon MD [address] [facility] 550 [place] [address] 12/29/2024 9:30 AM EDT Clinical Support [facility]ck [facility] Respiratory 800 [facility], 2nd [place] [address] 12/29/2024 10:00 AM EDT Office Visit [facility] Res[facility] 800 [facility], 2nd [place] [address] Carlito Mccartney MD [address] [facility] 125 [place] [address] 03/23/2025 10:40 AM EST Office Visit [facility] Head[facility]ck [facility] Respiratory 800 [facility], [address]nd [place] [address] Arabella Romero, MARKETING EXECUTIVE 800 [place] [address] documented as of this encounter Visit Diagnoses Not on filedocumented in this encounter Additional Health Concerns Assessment Noted Time PHQ-9 Depression Total Score: 0 07/15/19 25 12:22 PM EDT A fall risk assessment has been complete d for the patient 08/06/2024 12:31 PM EDT A Body Mass Index follow-up plan has been documented for the patient 05/27/2024 1:13 PM EDT documented as of this encounter Care Teams Record Changer Assembler Relationship Specialty Start Date End Date Efren Roy DO [address] [place] [address] PCP - General 03/04/23 Efren Roy DO [address] [place] [address] Pain Medicine 01/03/23 Rosa Maria Beltran APRN [address] [place] [address] Nurse Practitioner Family Medicine 07/21/23 Bobby Vazquez MD 800 [facility] [address] Cooper [facility] [address] [place] [address] Consulting Physician Medical Oncology 09/17/23 Cally Henderson PA [address] [facility] [address] [place] [address] Physician Interface Designer Urology 09/17/23 documented as of this encounter
--- OUTSIDE RECORDS SUMMARY | 2024-08-06 11:30 | XMS_ITS | Encounter Summary ---
Author Organization [facility] Address [address] [place] [address] Care Team Providers Care Salt Washer Name Role Phone Efren Roy DO Unavailable [phone] Efren Roy DO Primary Care Provider [phone] Rosa Maria Beltran ACOUSTICAL INSTALLER Unavailable [phone] Bobby Vazquez MD Unavailable Cally Henderson Unavailable Reason for Visit * Reason Comments Follow-up Malignant tumor of r ight ureter Encounter Details Date Type Department Care Team (Late st Contact Info) Description 08/06/2024 11:30 AM EDT Office Visit [facility] Multidisciplinary Oncology Clinic [address] [place] [address] Sara Tesfaye, ACOUSTICAL INSTALLER [address] [facility] [address] [place] [address] Malignant neoplasm of urinary bladder, unspecified site (CMS/HCC) (Primary Dx); Dysuria; Dehydration; Malignant tumor of right ureter (CMS/HCC) Social [...] place to sleep or slept in a penitentiary (including now)? No 02/28/2023 PHQ-9 Answer Date [...] any time in the past 12 m [facility], were you homeless or living in a penitentiary (including now)? No 05/27/2024 CAGE ASSESSMENT Answer [...] drink first t tianna in the morning (EYE-DRIVE THRU ORDER TAKER) to steady your nerves or to get rid of a hangover? 0 02/27/2023 CAGE Questionnaire Score 0 023 Utilities Answer Date Recorded In the past 12 months has th e [place], gas, oil, or water [employer] threatened to shut off services in your [...] Sign Reading Time Taken Comments Blood Pressure 103/73 08/06/2024 11:01 AM EDT Pulse 115 08/06/2024 11:01 AM EDT Temperature - - Respiratory Rate 16 08/06/2024 11:01 AM EDT Oxygen Saturation 97% 08/06/2024 11:01 AM EDT Inhaled Oxygen Concentration - - Weight 76.9 kg (169 lb 8.5 oz) 08/06/2024 11:01 AM EDT Height 177.8 cm (5' 10 ) 08/06/2024 11:01 AM EDT Body Mass Index 24.33 08/06/2024 11:01 AM EDT documented in this encounter Functional Status * Over the past 2 weeks, how often have you been bothered by any of the following problems? Question Answer Date of Assessment Author Little interest or pleasure in doing things Not at all 08/06/2024 11:03 AM Gretchen Posey Feeling down, depressed, or hopeless Not at all 08/06/2024 11:03 AM Gretchen Posey Patient Health Questionnaire -2 Score 0 08/06/2024 11:03 AM TAYET Gretchen Wei * Question Answer Date of Assessment Author Thoughts that you would be b ramin off or hurting yourself in some way Not at all 08/06/2024 11:03 AM Gretchen Posey documented as of this encounter Miscellaneous Notes * Progress Notes - Sara Tesfaye APRN - 08/06/2024 11:30 AM EDT Medical Oncology Clinic Note Patient Name: Adrián Goode Date of : 1965 59 y.o. Referring Physician:No referring provider defined for this encounter. Encounter Date: 08/06/2024 Interval History: The patient presents today for follow up and continuation of treatment. Here with this . He reports going to the [facility] 07/27 for flank pain and constipation, while in the hospital Dr. Franklin completed a cystoscopy and stent exchange. He is continues to have back painfrom lower to mid back, he is taking pain medications and it is not helping. Pain level 8/10, we discussed making a referral to Palliative Pain Management and he is agreeable. He makes himself eat meals but appetite is decreased. He is drinking 2 supplement shakes per day. He notes he is losing weight despite eating. He has constipation, goes 3-4 days without having a stool, uses miralax and a stool softener daily. Has fatigue, doesn't feel like doing much. Denies neuropathy, edema, n/v. No other significant [...] unfortunately, he is not a candidate for [id number] due to the size of his regional [...] (08/27/2023) 11/28/2023 - 04/16/2024 Research Study Participant [id number]: Arm 1: Sacituzumab govitecan weekly x 2 Every 21 Days Plan Provider: Bobby Vazquez MD Treatment goal: [No plan goal] Line of treatment: [No plan line of treatment] Associated studies: [facility] RESEARCH PATIENT 07/23/2024 - Chemotherapy DOCEtaxel (Taxotere) 150 mg in sodium chloride 0.9 % 250 mL IVPB, 75 mg/m2 = 150 mg, Intravenous, Once, 0 of 6 cycles Past Medical, Surgical, Family and Social History: Reviewed, and unchanged from most recent clinic visit or updated as indicated. Allergies and Adverse Drug Reactions: Enfortumab vedotin Medications: Reviewed Review of Systems: 14 pt review of systems performed and negative except as noted in HPI. Physical Exam: Temp: [37 ??C (98.6 ??F)] 37 ??C (98.6 ??F) Heart Rate: [107-115] 107 Resp: [16-17] 17 BP: (103-110)/(73-75) 110/75 SpO2: [97 %-98 %] 98 % Wt Readings from Last 5 Encounters: 08/06/24 76.3 kg (168 lb 3.4 oz) 08/06/24 76.9 kg (169 lb 8.5 oz) 08/02/24 79.3 kg (174 lb 13.2 oz) 07/27/24 80.7 kg (178 lb) 07/23/24 80.7 kg (178 lb) ECO General: Sitting/resting comfortably in chair, NAD, thin, fatigued HEENT: NCAT, PERRLA/EOMI, anicteric; no oral lesions [...] and thought content LABS: Office Visit on 08/06/2024 Component Date Value Glucose, Plasma 08/06/2024 95 BUN, Plasma 08/06/2024 21 Creatinine, Plasma 08/06/2024 1.05 BUN/Creatinine Ratio 08/06/2024 20 Sodium, Plasma 08/06/2024 133 (L) Potassium, Plasma 08/06/2024 4.5 Chloride, Plasma 08/06/2024 97 CO2, Plasma 08/06/2024 23 Anion Gap 08/06/2024 13 Total Calcium, Plasma 08/06/2024 9.9 Total Protein 08/06/2024 7.8 Albumin, Plasma 08/06/2024 4.3 AST, Plasma 08/06/2024 43 ALT, Plasma 08/06/2024 30 Alkaline Phosphatase, Pl* 08/06/2024 117 (H) Total Bilirubin, Plasma 08/06/2024 0.2 eGFRcr 08/06/2024 81.3 WBC Count 08/06/2024 22.24 (H) RBC Count 08/06/2024 4.38 (L) HGB 08/06/2024 11.2 (L) HCT 08/06/2024 34.8 (L) Platelet Count 08/06/2024 313 MCV 08/06/2024 80 MCH 08/06/2024 25.6 (L) MCHC 08/06/2024 32.2 RDW 08/06/2024 17.2 (H) MPV 08/06/2024 9.4 nRBC 08/06/2024 0.0 Differential Type 08/06/2024 Automated Neutrophils % 08/06/2024 86 Lymphocytes % 08/06/2024 7 Monocytes % 08/06/2024 5 Eosinophils % 08/06/2024 0 Basophils % 08/06/2024 0 Immature Granulocytes % 08/06/2024 2 Neutrophils Absolute 08/06/2024 19.25 (H) Lymphocytes Absolute 08/06/2024 1.45 Monocytes Absolute 08/06/2024 1.14 (H) Eosinophils Absolute 08/06/2024 0.01 Basophils Absolute 08/06/2024 0.04 Immature Granulocytes Ab* 08/06/2024 0.35 (H) RADIOLOGY: CLINICAL INDICATION: Bladder cancer, invasive, assess treatment response TECHNIQUE: Multiple axial CT images were obtained from thoracic inlet through pubic symphysis following administration of IV contrast, Omnipaque 300, 100 mL. Reformatted images in the coronal and sagittal planes were generated from the axial data set to facilitate diagnostic accuracy. Total DLP (Dose-Length Product): 993.50 mGy.cm (accession [id number]), 993.50 mGy.cm (accession [id number]). Please note: The reported value represents the [...] at the posterior bladder wall (series 3, [id number]). Stable enlarged pelvic lymph nodes as described [...] unfortunately, he is not a candidate for [id number] due to the size of his regional [...] pembro + EV - Currrently enrolled on [id number]: A Phase III Randomized Trial of Eribulin (NSC #[id number]) with or Without Gemcitabine Versus Standard of [...] nail hyperpigmentation, eye toxicity etc PLAN for 08/06/24: - Due to progression on scans (see above) will stop Erdafitinib 8mg daily. - Okay to proceed with C1D1 Docetaxel - Labs and PS reviewed - Getting weekly IV fluids as needed - RTC on 08/27/2024 for f/up with Dr. Vazquez and C2 #Opioid induced constipation #Pain management - Constipation for 2-4 days - Using miralax and stool softeners - E'scribed lactulose, sent to infusion chair today - Pain is not controlled with oxycodone, MS contin and gabapentin - will make a referral for Palliative Medicine- he is currently on a wait list #Hydronephrosis with renal and ureteral calculus obstruction - Followed by Urology - Had cystoscopy and stent exchange on 07/28 - F/u on 11/[address] Franklin #Decreased appetite Weight loss - Weight loss of 10 lbs since 07/23/24 - Encouraged a high calorie and high protein diet - He is drinking Nepro/carb supplements 1-2 per day #TSH elevated - TSH 6.11, Free T4 1.4- WNL - Taking Tirosint 125 mcg daily - Will cont to monitor, followed by Cnc Lathe Machine Operator #Hyperphosphatemia - Phosphorus level 5.5 on 06/16/2024, will no longer be monitored since he will not be taking Erdafitinib Time was spent on this encounter; including preparing to see the patient, which involved review/interpretation of diagnostics and reports; obtaining and/or reviewing separately obtained history; performing appropriate physical exam; ordering/scheduling medications, tests or procedures; communicating findings and counseling/educating the patient, family and/or caregiver; documentation in EMR; and care coordination. The selection, dosing and administration of anti-cancer [...] APRN [facility] 1st floor [facility], . * Progress Notes - Rocky Martinez, PharmD - 08/06/2024 11:30 AM EDT Pharmacy Hematology/Oncology Treatment Note Adrián Goode is a 59 y.o. male with metastatic UTUC. Cancer Staging No matching staging information was found for the patient. Study Patient: Yes Treatment Plan reviewed for Docetaxel [x] Follow-Up Clinical Review for Cycle 1 [] Follow-Up Clinical Review for continuous oral therapy Patient History: 01/10/23: Will plan to start potentially neoadjuvant Appling/Cis. Creatinine is just below 60 ml/min today [...] and if positive will likely refer to [facility]. Will continue EV + Pembro for now. 07/30/23: Lung bx was aborted due to resolution of the lesion. Will continue current treatment. 11/28/23: Patient begins treatment on [id number]: Arm 1: Sacituzumab govitecan weekly x2 every [...] which NICOLE is enrolling him in the [employer] [facility] portal for future treatment. Labs otherwise ok [...] parameters to continue on 8 mg dose. 08/06/24: Unfortunately, Mr. Goode was found to have disease progression on 07/14/24 scans. Mr. Goode was seen in clinic by NICOLE for initiation of docetaxel therapy. Labs meet parameters for treatment. Today's Wt: 81.8 Dosing Wt: 80.4 kg Dosing Ht: 177.8 cm DosingBSA: 1.99 m2 Recent Labs: Lab Results Component Value Date WBC 22.24 (H) 08/06/2024 NEUTROABS 19.25 (H) 08/06/2024 HGB 11.2 (L) 08/06/2024 PLT 313 08/06/2024 Lab Results Component Value Date GLUCOSE 95 08/06/2024 NA 133 (L) 08/06/2024 CL 97 08/06/2024 K 4.5 08/06/2024 MG 2.0 07/24/2024 BUN 21 08/06/2024 CREATININE 1.05 08/06/2024 Lab Results Component Value Date AST 43 08/06/2024 ALT 30 08/06/2024 ALKPHOS 117 (H) 08/06/2024 BILITOT 0.2 08/06/2024 Lab Results Component Value Date PHOS 3.3 07/24/2024 Visit Vitals BP 103/73 Pulse (!) 115 Resp 16 Other Relevant Monitoring: Next Generation Sequencing (Caris) 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 NTRK1/2/3 fusion not detected RET fusion not detected KRAS/NRAS/BRAF wt BRCA1/2 wt Treatment/Therapy Plan: Docetaxel 75 mg/m2 (150 mg) IV on Day 1 Every 21 days [x] Maintained at 8 mg daily ([address]) d/t transaminitis Current Treatment Plan History: Docetaxel - Cycle 1: 08/06/24 Rx information Rx sent to: [facility] Refills will be due: June 2024 Prior Treatment History: Appling/Cis Cycle 1: 01/10/23 Cycle 2: 01/31/23 Cycle 3: 02/21/23 EV + Pembro Cycle 1: 03/26, 04/02/23 Cycle 2: 04/16, 04/23/23 Cycle 3: 05/06, 05/14/23 Cycle 4: 05/27, 06/04/23 Cycle 5: 06/17, 06/25/23 Cycle 6: 07/08, 07/16/23 Cycle 7: 07/29, 08/06/23 Cycle 8: 08/19, 08/27/23 Sacituzumab govitecan ([id number]: Arm 1) Cycle 1: 11/28/23, 12/05/23 Cycle 2: 12/19/23, 12/26/23 (dose-reduced to 75% of original dose d/t fatigue) Cycle 3: 01/09/24, 01/16/24 Cycle 4: 01/27, 02/04/24 Cycle 5: 02/26, 03/05/24 Cycle 6: 03/19, 03/26/24 Cycle 7: 04/09, 04/16/24 Erdafitinib: - Initiated April 2024 - Discontinued August 2024 for progression Plan: Patient will return to clinic in 4 weeks. Will follow-up at that time. Pharmacist Attestation: Rocky Martinez PharmD Clinical Oncology Pharmacist documented in this encounter Plan of Treatment Upcoming Encounters Date Type Department Care Team (Late st Contact Info) Description 08/27/2024 1:00 PM EDT Office Visit [facility] Multidisciplinary Oncology Clinic [address] [place] [address] Bobby Vazquez MD [address] [facility] [address] [address] 08/27/2024 1:00 PM EDT Clinical Support [facility] Multidisciplinary Oncology Clinic [address] [place] [address] 08/27/2024 2:30 PM EDT Appointment [facility] Infusion Clinic [address] [place] [address] 10/19/2024 11:30 AM EDT Office Visit [facility] Multidisciplinary Oncology Clinic [address] [place] [address] Kym Romero, JYOTSNA [address] [facility] [address] [place] [address] 11/24/2024 11:00 AM EDT Office Visit [facility] Multidisciplinary Oncology Clinic [address] [place] [address] Adal Franklin MD [address] [facility] [address] [place] [address] 12/15/2024 1:00 PM EDT Office Visit [facility] [address] [place] [address] Efren Fallon MD [address] [place] [address] 12/29/2024 9:30 AM EDT Clinical Support [facility] [address] [facility]nd [place] [address] 12/29/2024 10:00 AM EDT Office Visit [facility] [address] [facility] [place] [address] Carlito Mccartney MD [address] [facility] [address] [place] [address] 03/23/2025 10:40 AM EST Office Visit [facility] [address] [facility] [place] [address] Arabella Romero, ACOUSTICAL INSTALLER [address] [place] [address] documented as of this encounter Procedures Procedure Name Priority Date/Time Associated Diagnosis Comments COMPREHENSIVE METABOLIC PANEL, PLASMA Routine 08/06/2024 12:16 PM EDT Malignant neoplasm of urinary bladder, unspecified site (CMS/HCC) CBC WITH AUTO DIFFERENTIAL Routine 08/06/2024 11:26 AM EDT Malignant neoplasm of urinary bladder, unspecified site (CMS/HCC) documented in this encounter Results * (ABNORMAL) Comprehensive Metabolic Panel, Plasma (08/06/2024 12:16 PM EDT) Glucose, Plasma 95 74 - 99 mg/dL 08/06/2024 12:16 PM EDT [facility] BUN, Plasma 21 8 - 23 mg/dL 08/06/2024 12:16 PM EDT [facility] Creatinine, Plasma 1.05 0.70 - 1.20 mg/dL 08/06/2024 12:16 PM EDT [facility] BUN/Creatinine Ratio 20 08/06/2024 12:16 PM EDT [facility] Sodium, Plasma 133(L) 136 - 145 mmol/L 08/06/2024 12:16 PM EDT [facility] Potassium, Plasma 4.5 3.6 - 4.9 mmol/L 08/06/2024 12:16 PM EDT [facility] Chloride, Plasma 97 97 - 107 mmol/L 08/06/2024 12:16 PM EDT [facility] CO2, Plasma 23 22 - 29 mmol/L 08/06/2024 12:16 PM EDT [facility] Anion Gap 13 6 - 16 mmol/L 08/06/2024 12:16 PM EDT [facility] Total Calcium, Plasma 9.9 8.9 - 10.2 mg/dL 08/06/2024 12:16 PM EDT [facility] Total Protein 7.8 6.3 - 7.9 g/dL 08/06/2024 12:16 PM EDT [facility] Albumin, Plasma 4.3 3.5 - 5.2 g/dL 08/06/2024 12:16 PM EDT [facility] AST, Plasma 43 10 - 50 U/L 08/06/2024 12:16 PM EDT [facility] ALT, Plasma 30 10 - 50 U/L 08/06/2024 12:16 PM EDT [facility] Alkaline Phosphatase, Plasma 117(H) 40 - 115 U/L 08/06/2024 12:16 PM EDT [facility] Total Bilirubin, Plasma 0.2 0.2 - 1.1 mg/dL 08/06/2024 12:16 PM EDT [facility] eGFRcr 81.3 mL/min/1.7 3m*2 08/06/2024 12:16 PM EDT [facility] Comment:Reported eGFRcr in m L/min/1.73m2 is based the CKD-EPI 2020 equation that does not use a race coefficient. Blood Venous blood specimen / Unknown 08/06/2024 11:45 AM EDT us Bobby Vazquez MD LAB BLOOD ORDERABLES Final Resul t [facility] [address] [place] [address] * (ABNORMAL) CBC and Differential (08/06/2024 11:26 AM EDT) WBC Count 22.24(H) 3.70 - 10.30 10*3/uL LAB HEMATOLOGY METHOD 08/06/2024 12:23 PM EDT [facility] RBC Count 4.38(L) 4.60 - 6.10 10*6/uL LAB HEMATOLOGY METHOD 08/06/2024 12:23 PM EDT [facility] HGB 11.2(L) 13.7 - 17.5 g/dL LAB HEMATOLOGY METHOD 08/06/2024 12:23 PM EDT [facility] HCT 34.8(L) 40.0 - 51.0 % LAB HEMATOLOGY METHOD 08/06/2024 12:23 PM EDT [facility] Platelet Count 313 155 - 369 10*3/uL LAB HEMATOLOGY METHOD 08/06/2024 12:23 PM EDT [facility] MCV 80 79 - 98 fL LAB HEMATOLOGY METHOD 08/06/2024 12:23 PM EDT [facility] MCH 25.6(L) 26.0 - 32.0 pg LAB HEMATOLOGY METHOD 08/06/2024 12:23 PM EDT [facility] MCHC 32.2 30.7 - 35.5 g/dL LAB HEMATOLOGY METHOD 08/06/2024 12:23 PM EDT [facility] RDW 17.2(H) 11.5 - 14.5 % LAB HEMATOLOGY METHOD 08/06/2024 12:23 PM EDT [facility] MPV 9.4 8.8 - 12.5 fL LAB HEMATOLOGY METHOD 08/06/2024 12:23 PM EDT [facility] nRBC 0.0 <=0.0 per 100 WBCs LAB HEMATOLOGY METHOD 08/06/2024 12:23 PM EDT [facility] Differential Type Automated LAB HEMATOLOGY METHOD 08/06/2024 12:23 PM EDT [facility] Neutrophils % 86 % LAB HEMATOLOGY METHOD 08/06/2024 12:23 PM EDT [facility] Lymphocytes % 7 % LAB HEMATOLOGY METHOD 08/06/2024 12:23 PM EDT [facility] Monocytes % 5 % LAB HEMATOLOGY METHOD 08/06/2024 12:23 PM EDT [facility] Eosinophils % 0 % LAB HEMATOLOGY METHOD 08/06/2024 12:23 PM EDT [facility] Basophils % 0 % LAB HEMATOLOGY METHOD 08/06/2024 12:23 PM EDT [facility] Immature Granulocytes % 2 % LAB HEMATOLOGY METHOD 08/06/2024 12:23 PM EDT [facility] Neutrophils Absolute 19.25(H) 1.60 - 6.10 10*3/uL LAB HEMATOLOGY METHOD 08/06/2024 12:23 PM EDT [facility] Lymphocytes Absolute 1.45 1.20 - 3.90 10*3/uL LAB HEMATOLOGY METHOD 08/06/2024 12:23 PM EDT [facility] Monocytes Absolute 1.14(H) 0.30 - 0.90 10*3/uL LAB HEMATOLOGY METHOD 08/06/2024 12:23 PM EDT [facility] Eosinophils Absolute 0.01 0.00 - 0.50 10*3/uL LAB HEMATOLOGY METHOD 08/06/2024 12:23 PM EDT [facility] Basophils Absolute 0.04 0.00 - 0.10 10*3/uL LAB HEMATOLOGY METHOD 08/06/2024 12:23 PM EDT [facility] Immature Granulocytes Absolute 0.35(H) 0.00 - 0.06 10*3/uL LAB HEMATOLOGY METHOD 08/06/2024 12:23 PM EDT [facility] Blood Venous blood specimen / Unknown (Central Line) Existing Catheter / Unknown 08/06/2024 11:26 AM EDT 08/06/2024 12:20 PM EDT Narrative [facility] - 08/06/2024 12:23 PM EDT Therapeutic decision making should be based on absolute values, rather than percentages. us Bobby Vazquez MD LAB BLOOD ORDERABLES Final Resul t [facility] [address] [place] [address] documented in this encounter Visit Diagnoses Diagnosis Malignant neoplasm of urinary bladder, unspecified site (CMS/HCC)- Primary Dysuria Dehydration Malignant tumor of right ureter (CMS/HCC) documented in this encounter Additional Health Concerns Assessment Noted Time PHQ-9 Depression Total Score: 0 05/14/20 25 12:22 PM EDT A fall risk assessment has been complete d for the patient 08/06/2024 12:31 PM EDT A Body Mass Index follow-up plan has been documented for the patient 05/27/2024 1:13 PM EDT documented as of this encounter Care Teams Salt Washer Relationship Specialty Start Date End Date Efren Roy DO [address] [place], [place] [id number] PCP - General 03/04/23 Efren Roy DO [address] [place], [place] [id number] Pain Medicine 01/03/23 Rosa Maria Beltran APRN [address] [facility] [address] [place] [phone] Nurse Practitioner Family Medicine 07/21/23 Bobby Vazquez MD [address] [facility] [address] [place] [address] Consulting Physician Medical Oncology 09/17/23 Cally Henderson PA [address] [place] [phone] Physician Assisted Living Assistant Urology 09/17/23 documented as of this encounter
--- OUTSIDE RECORDS SUMMARY | 2024-08-06 12:29 | XMS_ITS | Encounter Summary ---
Author Organization [facility] Address [address] [place] [address] Care Team Providers Care Criminal Intelligence Analyst Name Role Phone Efren Roy DO Unavailable [phone] Efren Roy DO Primary Care Provider [phone] Rosa Maria Beltran APRN Unavailable [phone] Bobby Vazquez MD Unavailable Cally Henderson Unavailable [phone] Reason for Visit * Episode Based Medications (Routine) - Authorized Specialty Diagnoses / Procedures Referred By Contmartha t Referred To Contact Diagnoses Malignant tumor of right ureter (CMS/HCC) Procedures DOCEtaxel Every 21 Days Bobby Vazquez MD [address] [place] [address] [address] Phone: tel: fax: Bobby Vazquez MD [address] [place] [address] [address] Phone: tel: fax: Referral ID Status Reason Start Date Expiration Date V isits Requested Visits Authorized [id number] Authorized 07/21/2024 01/20/2026 1 3 Encounter Details Date Type Department Care Team (Latest Contact Info) Description 08/06/2024 12:29 PM EDT - 08/06/2024 11:59 PM EDT Hospital Encounter [facility] 1 [address] [place] [address] Malignant tumor of right ureter (CMS/HCC) (Primary [...] any time in the past [address] [facility], were you homeless or living in [...] drink first t tianna in the morning (EYE-STRAIGHT CUTTER MACHINE) to steady your nerves or to get rid of a hangover? 0 02/27/2023 CAGE Questionnaire Score 0 023 Utilities Answer Date Recorded In the past 12 months has e [employer], gas, oil, or water [employer] threatened to shut off services in your [...] as needed for anxiety. 30 capsule 07/29/2024 loperamide (Imodium A-D) 2 MG tabletIndications:D ehydration,Malignan [...] by mouth 2 (two) times a day. 09984 mL 5 06/16/2024 ondansetron ODT (Zofran-ODT) 4 [...] nausea or vomiting. 30 tablet 5 08/06/2024 tamsulosin (Flomax) 0.4 MG 24 hr capsule TAKE 1 CAPSULE BY MOUTH ONCE A DAY WITH DINNER 30 capsule 02/17/2023 Tirosint 125 MCG capsule Take 1 capsule by mouth daily before breakfast. 90 capsule 1 08/02/2024 tiZANidine (Zanaflex) 2 MG tablet Take 1 tablet by mouth 3 (three) times a day as needed for muscle spasms. lactulose (Chronulac) 10 GM/15ML oral solution Take 15 mL by mouth 2 times a day as needed (For constipation. Hold for diarrhea). 946 mL 1 08/06/2024 5 OLANZapine (ZyPREXA) 5 MG tablet Take 1 tablet by mouth nightly. Please send to infusion chair WH1 30 tablet 2 08/06/2024 5 senna-docusate sodium (Senokot-S) 8.6-50 MG tablet Take [...] Description 08/27/2024 1:00 PM EDT Office Visit [facility] [address] [place] [address] Bobby Vazquez MD 800 [facility] Sh[address] [address] 08/27/2024 1:00 PM EDT Clinical Support [facility] 800 [place] [address] 08/27/2024 2:30 PM EDT Appointment [facility] 2 [address] [place] [address] 10/19/2024 11:30 AM EDT Office Visit [facility] 800 [place] [address] Kym Romero, INDUSTRIAL SOCIOLOGIST 800 [facility] Sh[address] [place] [address] 11/24/2024 11:00 AM EDT Office Visit [facility] 800 [place] [address] Adal [place] MD [address] [facility] [address] [place] [address] 12/15/2024 1:00 PM EDT Office Visit [facility] [address] [place] [address] Efren Fallon MD [address] [facility] 550 [place] [address] 12/29/2024 9:30 AM EDT Clinical Support [facility] 800 [facility], 2[address] [place] [address] 12/29/2024 10:00 AM EDT Office Visit [facility] 800 [facility], [address] [place] [address] Carlito Mccartney MD 2195 [facility] 125 [place] [address] 03/23/2025 10:40 AM EST Office Visit [facility] 800 [facility] 2nd [place] [address] Arabella Romero, INDUSTRIAL SOCIOLOGIST 800 [place] [address] documented as of this encounter Visit Diagnoses [...] documented as of this encounter Care Teams Criminal Intelligence Analyst Relationship Specialty Start Date End Date Efren Roy DO [address] [place] [address] PCP - General 03/04/23 Efren Roy DO [address] [place] [address] Pain Medicine 01/03/23 Rosa Maria Beltran APRN [address] [address] Nurse Practitioner Family Medicine 07/21/23 Bobby Vazquez MD 800 [facility] Shantel Cooper [facility] [address] [place] [address] Consulting Physician Medical Oncology 09/17/23 Cally Henderson PA [address] [place] [address] Physician Industrial/Organizational Psychologist Urology 09/17/23 documented as of this encounter
[2024-08-12 11:50] VITALS: BP 89/62; PULSE 111; RESP 16; O2SAT 99
[2024-08-12] MEDS: 0.9 % SODIUM CHLORIDE 1000ML 1,000 ML 999 ML IV (11:50)
[2024-08-12] MEDS: SODIUM CHLORIDE 0.9% 10ML FLUSH SYRINGE 10 ML IV (11:50)
[2024-08-12 12:50] VITALS: BP 102/70; PULSE 100; RESP 17
--- OUTSIDE RECORDS SUMMARY | 2024-08-12 13:22 | XMS_ITS | Encounter Summary ---
Author Organization [facility] Address [address] [place] [address] Care Team Providers Care Meter Installer Name Role Phone Efren Roy DO Unavailable [phone] Efren Roy DO Primary Care Provider [phone] Rosa Maria Beltran APRN Unavailable [phone] Bobby Vazquez MD Unavailable Cally Henderson Unavailable [phone] Encounter Details Date Type Department Care Team (Latest Contact Info) Description 07/14/2024 Travel Social History Tobacco Use Types Packs/Day Years [...] place to sleep or slept in a [place] facility (including now)? No 02/28/2023 PHQ-9 Answer Date [...] any time in the past 12 [facility], [facility] or living in a [place] [facility] [place] facility (including now)? No 05/27/2024 CAGE ASSESSMENT Answer [...] drink first t tianna in the morning (EYE-SUPERVISOR ELECTRONICS INSPECTION) to steady your nerves or to get rid of a hangover? 0 02/27/2023 CAGE Questionnaire Score 0 023 Utilities Answer Date Recorded In the past 12 months has th [employer], gas, oil, or water company threatened to [...] usual. Not at all 07/14/2024 12:22 PM EDT Aide Iyer Thoughts that you would be better off or hurting yourself in some way Not at all 07/14/2024 12:22 PM EDT Jessica Ramirez A Patient Health Questionnaire -9 Score 0 07/14/2024 12:22 PM EDT Adie Ramirez * If you checked off any problems on this questionnaire so far, Question Answer Date of Assessment Author How difficult have these problems made it for you to do your work, take care of things at home, or get along with other people? Not difficult at all 07/14/2024 12:22 PM EDT Jessica Ramirez A documented as of this encounter Plan of Treatment Upcoming Encounters Date Type Department Care Team (Late st Contact Info) Description 08/27/2024 1:00 PM EDT Office Visit [facility] 800 [place] [address] Bobby Vazquez MD 800 [facility] [address] [address] 08/27/2024 1:00 PM EDT Clinical Support [facility] 800 [place] [address] 08/27/2024 2:30 PM EDT Appointment [facility] 2 [address] [place] [address] 10/19/2024 11:30 AM EDT Office Visit [facility] 800 [place] [address] Kym Romero APRN 800 [facility] Kenneth [facility] 134 [place] [address] 11/24/2024 11:00 AM EDT Office Visit [facility] 800 [place] [address] Adal [place] MD [address] [place] [address] 12/15/2024 1:00 PM EDT Office Visit [facility] [address] [place] [address] Efren Fallon MD [address] [facility] [address] [place] [address] 12/29/2024 9:30 AM EDT Clinical Support [facility] 800 [facility], 2nd [place] [address] 12/29/2024 10:00 AM EDT Office Visit [facility] 800 [facility], 2nd [place] [address] Carlito Mccartney MD 2195 [facility] 125 [place] [address] 03/23/2025 10:40 AM EST Office Visit [facility] 800 [facility], [address]nd [place] [address] Arabella Romero, MACHINE TOOL DRESSER 800 [place] [address] documented as of this encounter Visit Diagnoses [...] documented as of this encounter Care Teams Meter Installer Relationship Specialty Start Date End Date Efren Roy DO [address] [place] [address] PCP - General 03/04/23 Efren Roy DO 439 [place] [address] Pain Medicine 01/03/23 Rosa Maria Beltran APRN 2195 [facility] [address] [place] [address] Nurse Practitioner Family Medicine 07/21/23 Bobby Vazquez MD 800 [facility] [address] [place] [address] Consulting Physician Medical Oncology 09/17/23 Cally Henderson PA [address] [place] [address] Physician Chainman Urology 09/17/23 documented as of this encounter
--- OUTSIDE RECORDS SUMMARY | 2024-08-12 13:22 | XMS_ITS | Encounter Summary ---
Author Organization [facility] Address [address] [place] [address] Care Team Providers Care Studio Couch Frame Builder Name Role Phone Kirill Efren Jaqueline HOWELL Unavailable [phone] Efren Roy DO Primary Care Provider Rosa Maria Beltran APRN Unavailable [phone] Bobby Vazquez MD Unavailable Cally Henderson Unavailable [phone] Encounter Details Date Type Department Care Team (Late st Contact Info) Description 07/15/2024 Orders Only [facility] 800 [place] [address] Bobby Vazquez MD [address] [address] Malignant tumor of right ureter (CMS/HCC) (Primary [...] in the past 12 m [facility], were you homeless or living in a [...] drink first t tianna in the morning (EYE-COOK NIGHT) to steady your nerves or to get [...] [facility] 800 [place] [address] Bobby Vazquez MD [address] [facility] Sh[address] [address] 08/27/2024 1:00 PM EDT Clinical Support [facility] 800 [place] [address] 08/27/2024 2:30 PM EDT Appointment [facility] 2 [address] [place] [address] 10/19/2024 11:30 AM EDT Office Visit [facility] 800 [place] [address] Kym Romero, MD SENIOR RESEARCH SCIENTIST 800 [facility] [address] [place] [address] 11/24/2024 11:00 AM EDT Office Visit [facility] 800 [place] [address] Adal [place] MD [address] [place] [address] 12/15/2024 1:00 PM EDT Office Visit [facility] 110 [facility] [place] [address] Efren Fallon MD [address] [facility] 550 [place] [address] 12/29/2024 9:30 AM EDT Clinical Support [facility] [address] [facility], 2nd [place] [address] 12/29/2024 10:00 AM EDT Office Visit [facility] 800 [facility] 2nd [place] [address] Carlito Mccartney MD 2195 [facility] 125 [place] [address] 03/23/2025 10:40 AM EST Office Visit [facility] [address] [facility], 2nd [place] [address] Arabella Romero, MD SENIOR RESEARCH SCIENTIST 800 [place] [address] Scheduled Orders Name Type Priority Associated Diagnoses Orde r Schedule CBC and differential Lab Routine Malignant tumor of right ureter (CMS/HCC) Expected: 08/27/2024, Expires: 08/27/2025 Comprehensive metabolic panel Lab Routine Malignant tumor of right ureter (CMS/HCC) Expected: 08/27/2024, Expires: 08/27/2025 documented as of this encounter Visit Diagnoses [...] documented as of this encounter Care Teams Studio Couch Frame Builder Relationship Specialty Start Date End Date Efren Roy DO [address] [place] [address] PCP - General 03/04/23 Efren Roy DO [address] [place], [place] [address] Pain Medicine 01/03/23 Rosa Maria Beltran APRN [address] [place] [address] [address] [place] [address] Nurse Practitioner Family Medicine 07/21/23 Bobby Vazquez MD 800 [facility] [address] [place] [address] Consulting Physician Medical Oncology 09/17/23 Cally Henderson PA [address] [place] [address] Physician String Studies Director Urology 09/17/23 documented as of this encounter
--- OUTSIDE RECORDS SUMMARY | 2024-08-12 13:22 | XMS_ITS | Encounter Summary ---
Author Organization [facility] Address [address] [place] [address] Care Team Providers Care Lap Winding Machine Operator Name Role Phone Efren Roy DO Unavailable [phone] Efren Roy DO Primary Care Provider [phone] Rosa Maria Beltran APRN Unavailable [phone] Bobby Vazquez MD Unavailable Cally Henderson Unavailable [phone] Encounter Details Date Type Department Care Team (Late st Contact Info) Description 06/15/2024 Clinical Support [facility] [address] [place] [address] Rocky Martinez, PharmD Malignant neoplasm of urinary bladder, unspecified site (CMS/HCC) (Primary Dx) Social History Tobacco Use [...] time in the past 12 m [facility], were you homeless or living [...] drink first t tianna in the morning (EYE-FOOD SAMPLER) to steady your nerves or to get [...] Description 08/27/2024 1:00 PM EDT Office Visit [facility] [address] [place] [address] Bobby Vazquez MD 800 [facility] Shantel Bar[address] [address] 08/27/2024 1:00 PM EDT Clinical Support [facility] [address] [place] [address] 08/27/2024 2:30 PM EDT Appointment [facility] Infusion Clinic 2 [address] [place] [address] 10/19/2024 11:30 AM EDT Office Visit [facility] [address] [place] [address] Kym Romero, JYOTSNA 800 [facility] Shantel [address] [address] 11/24/2024 11:00 AM EDT Office Visit [facility] [address] [place] [address] Adal [place] MD [address] [place] [address] 12/15/2024 1:00 PM EDT Office Visit [facility] [address] [place] [address] Efren Fallon MD [address] [place] [address] 12/29/2024 9:30 AM EDT Clinical Support [facility] 800 [facility], 2nd [place] [address] 12/29/2024 10:00 AM EDT Office Visit [facility] 800 [facility], [address] [place] [address] Carlito Mccartney MD 2195 [facility] 125 [place] [address] 03/23/2025 10:40 AM EST Office Visit [facility] 800 [facility], [address] [place] [address] Arabella Romero, MIDDLE SCHOOL SPORTS COACH [address] [place] [address] documented as of this encounter Visit Diagnoses Diagnosis Malignant neoplasm of urinary bladder, unspecified site (CMS/HCC)- Primary documented in this encounter Additional Health Concerns Assessment Noted Time PHQ-9 Depression Total Score: 0 03/19/19 25 8:50 AM EST A fall risk assessment has been complete d for the patient 06/14/2024 11:40 AM EDT A Body Mass Index follow-up plan has been documented for the patient 05/27/2024 1:13 PM EDT documented as of this encounter Care Teams Lap Winding Machine Operator Relationship Specialty Start Date End Date Efren Roy DO 439 [place] [address] PCP - General 03/04/23 Efren Roy JaquelineDO 439 [place] [address] Pain Medicine 01/03/23 Rosa Maria Beltran APRN 2195 [facility] [address] [place] [address] Nurse Practitioner Family Medicine 07/21/23 Bobby Vazquez MD 800 [facility] Shantel Cooper [facility] Saur[address] [place] [address] Consulting Physician Medical Oncology 09/17/23 Cally Henderson PA [address] [place] [address] Physician High Pressure Firer Urology 09/17/23 documented as of this encounter
--- OUTSIDE RECORDS SUMMARY | 2024-08-12 13:22 | XMS_ITS | Encounter Summary ---
Author Organization [facility] Address [address] [place] [address] Care Team Providers Care Egg Factory Worker Name Role Phone Efren Roy DO Unavailable [phone] Efren Roy DO Primary Care Provider [phone] Rosa Maria Beltran APRN Unavailable [phone] Bobby Vazquez MD Unavailable Cally Henderson Unavailable [phone] Encounter Details Date Type Department Care Team (Latest Contact Info) Description 07/13/2024 Travel Social History Tobacco Use Types Packs/Day [...] drink first t tianna in the morning (EYE-AFLOAT CRYPTOLOGIC MANAGER) to steady your nerves or to [...] Description 08/27/2024 1:00 PM EDT Office Visit [facility] 800 [place] [address] Bobby Vazquez MD 800 [facility] Sh[address] [address] 08/27/2024 1:00 PM EDT Clinical Support [facility] 800 [place] [address] 08/27/2024 2:30 PM EDT Appointment [facility] Infusion Clinic 2 [address] [place] [address] 10/19/2024 11:30 AM EDT Office Visit [facility] [address] [place] [address] Kym Romero, RADIATION OFFICER 800 [facility] Shantel Barrerason [address] [address] 11/24/2024 11:00 AM EDT Office Visit [facility] [address] [place] [address] Adal [place] MD [address] [facility] [address] [place] [address] 12/15/2024 1:00 PM EDT Office Visit [facility] [address] [place] [address] Efren Fallon MD [address] [facility] S[address] [place] [address] 12/29/2024 9:30 AM EDT Clinical Support [facility] 800 [facility], 2nd [place] [address] 12/29/2024 10:00 AM EDT Office Visit [facility] 800 [facility], 2nd [place] [address] Carlito Mccartney MD 2195 [facility] 125 [place] [address] 03/23/2025 10:40 AM EST Office Visit [facility] 800 [facility], 2nd [place] [address] Arabella Romero, RADIATION OFFICER 800 [place] [address] documented as of this encounter Visit Diagnoses [...] documented as of this encounter Care Teams Egg Factory Worker Relationship Specialty Start Date End Date Efren Roy DO [address] [place] [address] PCP - General 03/04/23 Efren Roy DO [address] [place] [address] Pain Medicine 01/03/23 Rosa Maria Beltran APRN 2195 [facility] [address] [place] [address] Nurse Practitioner Family Medicine 07/21/23 Bobby Vazquez MD 800 [facility] S[facility] [place] [address] Consulting Physician Medical Oncology 09/17/23 Cally Henderson PA [address] [place] [address] Physician Betting Agency Manager Urology 09/17/23 documented as of this encounter
--- OUTSIDE RECORDS SUMMARY | 2024-08-12 13:22 | XMS_ITS | Encounter Summary ---
Author Organization [facility] Address [address] [place] [address] Care Team Providers Care Tight Cooper Name Role Phone Efren Roy DO Unavailable [phone] Efren Roy DO Primary Care Provider [phone] Rosa Maria Beltran APRN Unavailable [phone] Bobby Vazquez MD Unavailable Cally Henderson Unavailable [phone] Encounter Details Date Type Department Care Team (Latest Contact Info) Description 07/22/2024 Travel Social History Tobacco Use Types Packs/Day [...] in the past 12 m [facility], were you homeless or living in a [...] drink first t tianna in the morning (EYE-TECHNICAL SUPPORT INTERNSHIP) to steady your nerves or to get [...] Description 08/27/2024 1:00 PM EDT Office Visit [facility] [address] [place] [address] Bobby Vazquez MD 800 [facility] [address] [address] 08/27/2024 1:00 PM EDT Clinical Support [facility] [address] [place] [address] 08/27/2024 2:30 PM EDT Appointment [facility] Infusion Clinic 2 [address] [place] [address] 10/19/2024 11:30 AM EDT Office Visit [facility] 800 [place] [address] Kym Romero, MEDICAL CASE MANAGER 800 [facility] Shantel Barrerason [address] [address] 11/24/2024 11:00 AM EDT Office Visit [facility] 800 [place] [address] Adal [place] MD [address] [place] [address] 12/15/2024 1:00 PM EDT Office Visit [facility] [address] [place] [address] Efren Fallon MD [address] [facility] [address] [place] [address] 12/29/2024 9:30 AM EDT Clinical Support [facility] 800 [facility], 2nd [place] [address] 12/29/2024 10:00 AM EDT Office Visit [facility] 800 [facility], 2nd [place] [address] Carlito Mccartney MD [address] [facility] [address] [place] [address] 03/23/2025 10:40 AM EST Office Visit [facility] 800 [facility], 2nd [place] [address] Arabella Romero, MEDICAL CASE MANAGER 800 [place] [address] documented as of this encounter Visit Diagnoses [...] documented as of this encounter Care Teams Tight Cooper Relationship Specialty Start Date End Date Efren Roy DO [address] [place] [address] PCP - General 03/04/23 Efren Roy DO 439 [place] [address] Pain Medicine 01/03/23 Rosa Maria Beltran APRN [address] [facility] [address] [place] [address] Nurse Practitioner Family Medicine 07/21/23 Bobby Vazquez MD 800 [facility] [address] [place] [address] Consulting Physician Medical Oncology 09/17/23 Cally Henderson PA [address] [place] [address] Physician Mine Inspector Urology 09/17/23 documented as of this encounter
--- OUTSIDE RECORDS SUMMARY | 2024-08-12 13:22 | XMS_ITS | Encounter Summary ---
Author Organization [facility] Address [address] [place] [address] Care Team Providers Care Slate Roofer Name Role Phone Efren Roy DO Unavailable [phone] Efren Roy DO Primary Care Provider [phone] Rosa Maria Beltran APRN Unavailable Bobby Vazquez MD Unavailable Cally Henderson Unavailable [phone] Encounter Details Date Type Department Care Team (Late st Contact Info) Description [facility]/19[facility] [address] [place] [address] Rosa Maria Eckert MD [address] [address] Social History Tobacco Use Types Packs/Day Years [...] time in the past 12 m [facility], were you homeless or living in a [...] drink first t tianna in the morning (EYE-FURNACE COMBUSTION TESTER) to steady your nerves or to get [...] as of this encounter Miscellaneous Notes * Telephone Encounter - Miya Crow - 07/19/2024 8:32 AM EDT Called lvm for patient that we need to reschedule today's appointment due to provider having familyemergency. documented in this encounter Plan of Treatment Upcoming Encounters Date Type Department Care Team (Late st Contact Info) Description 08/27/2024 1:00 PM EDT Office Visit [facility] [address] [place] [address] Bobby Vazquez MD 800 [facility] [address] [address] 08/27/2024 1:00 PM EDT Clinical Support [facility] [address] [place] [address] 08/27/2024 2:30 PM EDT Appointment [facility] 2 [address] [place] [address] 10/19/2024 11:30 AM EDT Office Visit [facility] [address] [place] [address] Kym Romero, CANINE ENFORCEMENT OFFICER 800 [facility] Shant[address] [place] [address] 11/24/2024 11:00 AM EDT Office Visit [facility] [address] [place] [address] Adal [place] MD [address] [place] [address] 12/15/2024 1:00 PM EDT Office Visit [facility] [address] [facility] [place] [address] Efren Fallon MD [address] [facility] [address] [place] [address] 12/29/2024 9:30 AM EDT Clinical Support [facility] 800 [facility] 2nd [place] [address] 12/29/2024 10:00 AM EDT Office Visit [facility] [address] [address] Carlito Mccartney MD 2195 [facility] 125 [place] [address] 03/23/2025 10:40 AM EST Office Visit [facility] [address] [address] Arabella Romero, CANINE ENFORCEMENT OFFICER 800 [place] [address] documented as of this encounter Visit Diagnoses [...] documented as of this encounter Care Teams Slate Roofer Relationship Specialty Start Date End Date Efren Roy DO [address] [place] [address] [id number] PCP - General 03/04/23 Efren Roy DO [address] [place] [address] Pain Medicine 01/03/23 Rosa Maria Beltran APRN 2195 [facility] [address] 125 [place] [address] Nurse Practitioner Family Medicine 07/21/23 Bobby Vazquez MD 800 [facility] Saurav [address] [place] [address] Consulting Physician Medical Oncology 09/17/23 Cally Henderson PA [address] [facility] [address] [place] [address] Physician Weld Lay Out Worker Urology 09/17/23 documented as of this encounter
--- OUTSIDE RECORDS SUMMARY | 2024-08-12 13:22 | XMS_ITS | Encounter Summary ---
Author Organization [facility] Address [address] [place] [address] Care Team Providers Care Rn Pacu Name Role Phone Efren Roy DO Unavailable [phone] Efren Roy DO Primary Care Provider [phone] Rosa Maria Beltran APRN Unavailable [phone] Bobby Vazquez MD Unavailable Cally Henderson Unavailable [phone] Encounter Details Date Type Department Care Team (Late st Contact Info) Description 07/13/2024 Refill [facility] 800 [place] [address] Bobby Vazquez MD [address] [address] Social History Tobacco Use Types Packs/Day Years [...] drink first t tianna in the morning (EYE-LAMINATION INSPECTOR) to steady your nerves or to get rid of a hangover? 0 02/27/2023 CAGE Questionnaire Score 0 023 Utilities Answer Date Recorded In the past 12 months has e [employer], gas, oil, or water company threatened to [...] Description 08/27/2024 1:00 PM EDT Office Visit [facility] 800 [place] [address] Bobby Vazquez MD 800 [facility] Shantel Cooper [address] [address] 08/27/2024 1:00 PM EDT Clinical Support [facility] 800 [place] [address] 08/27/2024 2:30 PM EDT Appointment [facility] 2 [address] [place] [address] 10/19/2024 11:30 AM EDT Office Visit [facility] [address] [place] [address] Kym Romero, VICE PRESIDENT INTEGRATED 800 [facility] Kenneth [address] [address] 11/24/2024 11:00 AM EDT Office Visit [facility] [address] [place] [address] Adal [place] MD [address] [facility] [address] [place] [address] 12/15/2024 1:00 PM EDT Office Visit [facility] [address] [facility] [place] [address] Efren Fallon MD 110 [facility] 550 [place] [address] 12/29/2024 9:30 AM EDT Clinical Support [facility] 800 [facility], 2nd [place] [address] 12/29/2024 10:00 AM EDT Office Visit [facility] [address] [address] Carlito Mccartney MD 2195 [facility] 125 [place] [address] 03/23/2025 10:40 AM EST Office Visit [facility] 800 [facility], 2nd [place] [address] Arabella Romero, VICE PRESIDENT INTEGRATED 800 [place] [address] documented as of this encounter Visit Diagnoses [...] documented as of this encounter Care Teams Rn Pacu Relationship Specialty Start Date End Date Efren Roy DO 439 [place] [address] PCP - General 03/04/23 Efren Roy DO [address] [place] [address] Pain Medicine 01/03/23 Rosa Maria Beltran APRN 2195 [facility] [address] 125 [place] [address] Nurse Practitioner Family Medicine 07/21/23 Bobby Vazquez MD 800 [facility] [address] 134 [place] [address] Consulting Physician Medical Oncology 09/17/23 Cally Henderson PA [address] [place] [address] Physician Senior Boiler Operator Urology 09/17/23 documented as of this encounter
--- OUTSIDE RECORDS SUMMARY | 2024-08-12 13:22 | XMS_ITS | Encounter Summary ---
Author Organization [facility] Address [address] [place] [address] Care Team Providers Care Unit Control Worker Name Role Phone Efren Roy DO Unavailable [phone] Efren Roy DO Primary Care Provider [phone] Rosa Maria Beltran APRN Unavailable [phone] Bobby Vazquez MD Unavailable Cally Henderson Unavailable [phone] Reason for Visit * Reason Onset Date Comments Distress Screen Follow-up 07/06/2024 Encounter Details Date Type Department Care Team (Late st Contact Info) Description 07/06/2024 Telephone [facility] 800 [place] [address] Tarsha Rider Distress Screen Follow-up Social History Tobacco Use Types Packs/Day Years [...] time in the past 12 m [facility], were you homeless or living [...] drink first t tianna in the morning (EYE-SIEVE REPAIRER) to steady your nerves or to get [...] encounter Miscellaneous Notes * Telephone Encounter - Tarsha Rider - 07/06/2024 2:43 PM EDT Encounter Type: Distress Follow Up - Phone Call Disease Status: Established Patient Clinic Location: [facility] Disease Type: Urinary Bladder Intervention Level: 2 Units (1 unit = 15 minutes): 1 Narrative: pet crematory worker contacted patient as a follow up to recent distress screen score. SW introduced self, explained non-urgent nature of the call, and inquired about patient's well-being. Patient endorses doing well overall. He is hopeful his Boost will be delivered today by [facility]. SW reiterated ongoing availability of Psych-Onc services to which the patient denied any immediate needs. SW encouraged patient to reach out should any questions or needs arise. Patient expressed understandingand appreciation for the call. Tarsha Rider, HARBOR PILOT, STAFF FIELD ENGINEER [facility] Psych-Oncology Services [phone] documented in this encounter Plan of Treatment Upcoming Encounters Date Type Department Care Team (Late st Contact Info) Description 08/27/2024 1:00 PM EDT Office Visit [facility] 800 [place] [address] Bobby Vazquez MD 800 [facility] Kenneth [facility] 134 [place] [address] 08/27/2024 1:00 PM EDT Clinical Support [facility] [address] [place] [address] 08/27/2024 2:30 PM EDT Appointment [facility] 2 7[address] [place] [address] 10/19/2024 11:30 AM EDT Office Visit [facility] [address] [place] [address] Kym Romero, METAL PAINTER 800 [facility] 134 [place] [address] 11/24/2024 11:00 AM EDT Office Visit [facility] Mult[facility]isciplinary Oncology Clinic [address] [place] [address] Adal [place] MD [address] [place] [address] 12/15/2024 1:00 PM EDT Office Visit [facility] [address] [facility] [place] [address] Efren Fallon MD 110 [facility] 550 [place] [address] 12/29/2024 9:30 AM EDT Clinical Support [facility] 800 [facility], 2nd [place] [address] 12/29/2024 10:00 AM EDT Office Visit [facility] 800 [facility], 2nd [place] [address] Carlito Mccartney MD 2195 [facility] S[address] [place] [address] 03/23/2025 10:40 AM EST Office Visit [facility] 800 [facility], 2nd [place] [address] Arabella Romero, METAL PAINTER 800 [place] [address] documented as of this encounter Visit Diagnoses [...] documented as of this encounter Care Teams Unit Control Worker Relationship Specialty Start Date End Date Efren Roy DO 439 [place] [address] PCP - General 03/04/23 Efren Roy DO [address] [place] [address] Pain Medicine 01/03/23 Rosa Maria Beltran APRN 2195 [facility] 125 [place] [address] Nurse Practitioner Family Medicine 07/21/23 Bobby Vazquez MD 800 [facility] Shantel [address] S[address] [place] [address] Consulting Physician Medical Oncology 09/17/23 Cally Henderson PA [address] [place] [address] Physician Metal Ceiling Hanger Urology 09/17/23 documented as of this encounter
--- OUTSIDE RECORDS SUMMARY | 2024-08-12 13:22 | XMS_ITS | Encounter Summary ---
Author Organization [facility] Address [address] [place] [address] Care Team Providers Care Equipment Lead Name Role Phone Efren Roy DO Unavailable [phone] Efren Roy DO Primary Care Provider [phone] Rosa Maria Beltran APRN Unavailable [phone] Bobby Vazquez MD Unavailable Cally Henderson Unavailable [phone] Encounter Details Date Type Department Care Team (Latest Contact Info) Description 06/16/2024 Travel Social History Tobacco Use Types Packs/Day [...] any time in the past 12 m [facility], were you homeless or living in a [...] drink first t tianna in the morning (EYE-COMMUNICATIONS CONTROLLER) to steady your nerves or to get [...] (Past 1 Month) No 025 10:56 AM TAYET Jennie Mott 2. Non-Specific Active Suici katie Thoughts (Past 1 Month) No 06/16/2024 10:56 AM EDT Fanta Mott 6. Suicidal Behavior (Lifetime) No 10:56 AM TAYET Jennie Mott documented as of this encounter Plan of Treatment Upcoming Encounters Date Type Department Care Team (Ghislaine Contact Info) Description 08/27/2024 1:00 PM EDT Office Visit [facility] Multidisciplinary Oncology Clinic 800 [place] [address] Bobby Vazquez MD 800 [facility] Kenneth [facility] 134 [place] [address] 08/27/2024 1:00 PM EDT Clinical Support [facility] [address] [place] [address] 08/27/2024 2:30 PM EDT Appointment [facility] 2 7[address] [place] [address] 10/19/2024 11:30 AM EDT Office Visit [facility] Multidisciplinary Oncology Clinic 800 [place] [address] Kym Romero, PROPERTY INSURANCE INSPECTOR 800 [facility] 134 [place] [address] 11/24/2024 11:00 AM EDT Office Visit [facility] Mult[facility]isciplinary Oncology Clinic 800 [place] [address] Adal [place] MD [address] [facility] [address] [place] [address] 12/15/2024 1:00 PM EDT Office [facility] 110 [facility] [place] [address] Efren Fallon MD 110 [address] [facility] 550 [place] [address] 12/29/2024 9:30 AM EDT Clinical Support [facility] 800 [facility], 2nd [place] [address] 12/29/2024 10:00 AM EDT Office Visit [facility] [address] [address] Carlito Mccartney MD 2195 [facility] 125 [place] [address] 03/23/2025 10:40 AM EST Office Visit [facility] 800 [facility] 2nd [place] [address] Arabella Romero, JYOTSNA 800 [place] [address] documented as of this encounter [...] documented as of this encounter Care Teams Equipment Lead Relationship Specialty Start Date End Date Efren Roy DO [address] [place] [address] PCP - General 03/04/23 Efren Roy DO [address] [place] [address] Pain Medicine 01/03/23 Rosa Maria Beltran APRN 5 [facility] 125 [place] [address] Nurse Practitioner Family Medicine 07/21/23 Bobby Vazquez MD 800 [facility] Shantel Cooper [facility] 134 [place] [address] Consulting Physician Medical Oncology 09/17/23 Cally Henderson PA 740 [address] [facility] [address] [place] [address] Physician Master Certified Rv Technician Urology 09/17/23 documented as of this encounter
--- OUTSIDE RECORDS SUMMARY | 2024-08-12 13:23 | XMS_ITS | Encounter Summary ---
Author Organization [facility] Address [address] [place] [address] Care Team Providers Care Curriculum Coach Name Role Phone Efren Roy DO Unavailable [phone] Efren Roy DO Primary Care Provider [phone] Rosa Maria Beltran APRN Unavailable Bobby Vazquez MD Unavailable Cally Henderson Unavailable Encounter Details Date Type Department Care Team (Late st Contact Info) Description 05/31/2024 Refill [facility] 800 [place] [address] Bobby Vazquez MD [address] [address] Social History Tobacco Use Types Packs/Day Years Used Date Smoking Tobacco: Passive Smo ke Exposure - Never Smoker Cigarettes 1.5 30 03/03/18 - 2006 Passive Smoke Exposure: Yes Smokeless [...] Date Recorded Patient Health Questionnaire-2 Score 0 05/19/2024 Hunger Vital Sign Answer Date Recorded Within [...] place to sleep or slept in a care home (including now)? No 02/28/2023 PHQ-9 Answer [...] in the past 12 m [facility], were you homeless or living in a care home (including now)? No 05/27/2024 CAGE ASSESSMENT [...] drink first t tianna in the morning (EYE-FUNDS DEVELOPMENT DIRECTOR) to steady your nerves or to get rid of a hangover? 0 02/27/2023 CAGE Questionnaire Score 0 023 Utilities Answer Date Recorded In the past 12 months has th [employer], gas, oil, or water [employer] threatened to shut off services in your home? No 05/27/2024 PHQ-2A Answer Date Recorded Depression Risk 0 04/30/2024 Sex and Gender Information Value Date Recorded Sex Assigned at Male 07/27/2024 6:43 PM EDT Legal Sex Male 6:40 PM EDT Gender Identity Male 07/27/2024 6:43 PM EDT Sexual Orientation Not on file documented as of this encounter Miscellaneous Notes * Telephone Encounter - Louise Adair - 06/01/2024 8:15 AM EDT Status Update Call #1 1st call regarding the status of the initial request. Best contact number: [phone] Optimal time of day to reach caller: Anytime Additional comments/information from caller: Patient calling to check on the status of this. Note: Please do not reply to this message. Follow-up communication and further actions as a result of this message need to be communicated with the patient directly, if the patient is not active onMyChart. If the patient is active on MyChart, they will receive notification of the communication/outcome via [employer]. * Telephone Encounter - Zaria Randall - 05/31/2024 10:32 AM EDT Patient Phone Message Reason for Call: Mr. Goode was recently discharged and was told to come in sooner than scheduledappointment for labs. They are not sure if any orders are in place. Best contact number and optimal time of day to reach caller: [phone] Note: Please do not reply to this message. Follow-up communication and further actions as a result of this message need to be communicated with the patient directly, if the patient is not active onMyChart. If the patient is active on MyChart, they will receive notification of the communication/outcome via [employer]. documented in this encounter Plan of Treatment Upcoming Encounters Date Type Department Care Team (Late st Contact Info) Description 08/27/2024 1:00 PM EDT Office Visit [facility] Multidisciplinary Oncology Clinic 800 [place] [address] Bobby Vazquez MD 800 [facility] [address] [address] 08/27/2024 1:00 PM EDT Clinical Support [facility] Multidisciplinary Oncology Clinic 800 [place] [address] 08/27/2024 2:30 PM EDT Appointment [facility] Infusion Clinic 2 [address] [place] [address] 10/19/2024 11:30 AM EDT Office Visit [facility] Multidisciplinary Oncology Clinic 800 [place] [address] Kym Romero, JYOTSNA 800 [facility] Kenneth [facility] 134 [place] [address] 11/24/2024 11:00 AM EDT Office Visit [facility] Multidisciplinary Oncology Clinic [address] [place] [address] Adal [place] MD [address] [facility] [address] [place] [address] 12/15/2024 1:00 PM EDT Office Visit [facility] [address] [place] [address] Efren Fallon MD 110 [facility] 550 [place] [address] 12/29/2024 9:30 AM EDT Clinical Support [facility] 800 [facility], 2nd [place] [address] 12/29/2024 10:00 AM EDT Office Visit [facility] 800 [facility], 2nd [place] [address] Carlito Mccartney MD 2195 [facility] 125 [place] [address] 03/23/2025 10:40 AM EST Office Visit [facility] 800 [facility], 2nd [place] [address] Arabella Rmoero, PUNCH PRESS SETTER 800 [place] [address] documented as of this encounter Visit Diagnoses Not on filedocumented in this encounter Additional Health Concerns Assessment Noted Time PHQ-9 Depression Total Score: 0 03/19/19 25 8:50 AM EST A fall risk assessment has been complete d for the patient 05/19/2024 10:27 AM EDT A Body Mass Index follow-up plan has been documented for the patient 05/27/2024 1:13 PM EDT documented as of this encounter Care Teams Curriculum Coach Relationship Specialty Start Date End Date Efren Roy DO [address] [place] [address] PCP - General 03/04/23 Efren Roy DO [address] [place] [address] Pain Medicine 01/03/23 Rosa Maria Beltran APRN 2195 [facility] [address] [place] [address] Nurse Practitioner Family Medicine 07/21/23 Bobby Vazquez MD 800 [facility] S[facility]av 134 [place] [address] Consulting Physician Medical Oncology 09/17/23 Cally Henderson PA [address] [place] [address] Physician Electric Stove Installer Urology 09/17/23 documented as of this encounter
--- OUTSIDE RECORDS SUMMARY | 2024-08-12 13:23 | XMS_ITS | Encounter Summary ---
Author Organization [facility] Address [address] [place] [address] Care Team Providers Care Business Banking Sales Assistant Name Role Phone Efren Roy DO Unavailable [phone] Efren Roy DO Primary Care Provider Rosa Maria Beltran APRN Unavailable Bobby Vazquez MD Unavailable Cally Henderson Unavailable Encounter Details Date Type Department Care Team (Late st Contact Info) Description 06/16/2024 Telephone [facility] [address] [place] [address] Bobby Vazquez MD [address] [address] Social History Tobacco Use Types [...] drink first t tianna in the morning (EYE-LMFT) to steady your nerves or to get rid of a hangover? 0 02/27/2023 CAGE Questionnaire Score 0 023 Utilities Answer Date Recorded In the past 12 months has th e [employer], gas, oil, or water company threatened to [...] encounter Miscellaneous Notes * Telephone Encounter - Anderson Hernandezpaulo Trotter - 06/16/2024 11:16 AM EDT Patient Phone Message Reason for Call: [facility] infusion dept. Is calling whoever is sending a referral to them is sending it to there phone line and not there fax line. There fax number is [phone] Best contact number and optimal time of day to reach caller:[phone] Note: Please do not reply to this message. Follow-up communication and further actions as a result of this message need to be communicated with the patient directly, if the patient is not active on MyChart. If the patient is active on MyChart, they will receive notification of the communication/outcome via amBX. documented in this encounter Plan of Treatment Upcoming Encounters Date Type Department Care Team (Late st Contact Info) Description 08/27/2024 1:00 PM EDT Office Visit [facility] Multidisciplinary Oncology Clinic [address] [place] [address] Bobby Vazquez MD 800 [facility] Shantel Cooper [address] [address] 08/27/2024 1:00 PM EDT Clinical Support [facility] [address] [place] [address] 08/27/2024 2:30 PM EDT Appointment [facility] Infusion [facility] 2 [address] [place] [address] 10/19/2024 11:30 AM EDT Office Visit [facility] Multidisciplinary Oncology Clinic [address] [place] [address] Kym Romero, MANAGER COMMUNITY RELATIONS 800 [facility] [address] [place] [address] 11/24/2024 11:00 AM EDT Office Visit [facility] [address] [place] [address] Adal Franklin MD [address] [place] [address] 12/15/2024 1:00 PM EDT Office Visit [facility] 110 [facility] [place] [address] Efren Fallon MD 110 [facility] [address] [place] [address] 12/29/2024 9:30 AM EDT Clinical Support [facility] [address] [phone] 12/29/2024 10:00 AM EDT Office Visit [facility] [address] [address] Carlito Mccartney MD Critical access hospital5 [facility] 125 [place] [address] 03/23/2025 10:40 AM EST Office Visit [facility] [address] [address] Arabella Romero, MANAGER COMMUNITY RELATIONS 800 [place] [address] documented as of this encounter Visit Diagnoses [...] documented as of this encounter Care Teams Business Banking Sales Assistant Relationship Specialty Start Date End Date Efren Roy DO [address] [place], [place] [phone] PCP - General 03/04/23 Efren Roy DO [address] [place], [place] [phone] Pain Medicine 01/03/23 Rosa Maria Beltran APRN [address] [facility] S[address] [place] [address] Nurse Practitioner Family Medicine 07/21/23 Bobby Vazquez MD 800 [facility] [address] [place] [address] Consulting Physician Medical Oncology 09/17/23 Cally Henderson PA 740 [facility] [address] [place] [address] Physician Invoicing Machine Operator Urology 09/17/23 documented as of this encounter
--- OUTSIDE RECORDS SUMMARY | 2024-08-12 13:23 | XMS_ITS | Encounter Summary ---
Author Organization [facility] Address [address] [place] [address] Care Team Providers Care Neon Sign Maker Name Role Phone Efren Roy DO Unavailable [phone] Efren Roy DO Primary Care Provider [phone] Rosa Maria Beltran APRN Unavailable [phone] Bobby Vazquez MD Unavailable Cally Henderson Unavailable [phone] Encounter Details Date Type Department Care Team (Latest Contact Info) Description 07/28/2024 Travel Social History Tobacco Use Types Packs/Day [...] place to sleep or slept in a usp (including now)? No 02/28/2023 PHQ-9 Answer Date [...] time in the past [address] [facility], were you homeless or living in a usp (including now)? No 05/27/2024 CAGE ASSESSMENT Answer [...] drink first t tianna in the morning (EYE-SUPPLY CHAIN COORDINATOR) to steady your nerves or to get [...] Month) No 025 10:43 AM EDT Makayla Burden, RN 2. Non-Specific Active Suici katie Thoughts (Past 1 Month) No 07/28/2024 10:43 AM EDT Miguel Burden, RN 6. Suicidal Behavior (Lifetime) No 10:43 AM EDT Makayla Burden, RN documented as of this encounter Plan of Treatment Upcoming Encounters Date Type Department Care Team (Late st Contact Info) Description 08/27/2024 1:00 PM EDT Office Visit [facility] Multidisciplinary Oncology Clinic [address] [place] [address] Bobby Vazquez MD 800 [facility] Shantel Cooper [address] [address] 08/27/2024 1:00 PM EDT Clinical Support [facility] Multidisciplinary Oncology Clinic [address] [place] [address] 08/27/2024 2:30 PM EDT Appointment [facility] Infusion Clinic 2 [address] [place] [address] 10/19/2024 11:30 AM EDT Office Visit [facility] [address] [place] [address] Kym Romero, IT SECURITY PROJECT MANAGER 800 [facility] [address] [place] [address] 11/24/2024 11:00 AM EDT Office Visit [facility] [address] [place] [address] Adal Franklin MD [address] [facility] [address] [place] [address] 12/15/2024 1:00 PM EDT Office Visit [facility] [address] [place] [address] Efren Fallon MD 110 [address] [facility] [address] [place] [address] 12/29/2024 9:30 AM EDT Clinical Support [facility] 800 [facility] [address] [place] [address] 12/29/2024 10:00 AM EDT Office Visit [facility] [address] [address] Carlito Mccartney MD 2195 [facility] 125 [place] [address] 03/23/2025 10:40 AM EST Office Visit [facility] [address] [address] Arabella Romero, IT SECURITY PROJECT MANAGER 800 [place] [address] documented as of this encounter Visit Diagnoses [...] documented as of this encounter Care Teams Neon Sign Maker Relationship Specialty Start Date End Date Efren Roy DO 439 [place], [place] [phone] PCP - General 03/04/23 Efren Roy DO [address] [place] [address] Pain Medicine 01/03/23 Rosa Maria Beltran APRN 2195 [facility] [address] [place] [address] Nurse Practitioner Family Medicine 07/21/23 Bobby Vazquez MD 800 [facility] [address] [place] [address] Consulting Physician Medical Oncology 09/17/23 Cally Henderson PA 740 [address] [facility] [address] [place] [address] Physician Sort Worker Urology 09/17/23 documented as of this encounter
--- OUTSIDE RECORDS SUMMARY | 2024-08-12 13:23 | XMS_ITS | Encounter Summary ---
Author Organization [facility] Address [address] [place] [address] Care Team Providers Care Farrowing Worker Name Role Phone Efren Roy DO Unavailable [phone] Efren Roy DO Primary Care Provider [phone] Rosa Maria Beltran APRN Unavailable [phone] Bobby Vazquez MD Unavailable Cally Henderson Unavailable [phone] Encounter Details Date Type Department Care Team (Late st Contact Info) Description 06/23/2024 Telephone [facility] [address] [place] [address] [address] Ramos [address] [address] Social History Tobacco Use Types Packs/Day Years [...] place to sleep or slept in a long-term (including now)? No 02/28/2023 PHQ-9 Answer Date [...] were you homeless or living in a long-term (including now)? No 05/27/2024 CAGE ASSESSMENT Answer [...] drink first t tianna in the morning (EYE-DEMONSTRATOR SALES) to steady your nerves or to get rid of a hangover? 0 02/27/2023 CAGE Questionnaire Score 0 023 Utilities Answer Date Recorded In the past 12 months has th e [employer], gas, oil, or water [employer] threatened to shut off services in your home? No 05/27/2024 PHQ-2A Answer Date Recorded Depression Risk 0 04/30/2024 Sex and Gender Information Value Date Recorded Sex Assigned at Male 07/27/2024 6:43 PM EDT Legal Sex Male 6:40 PM EDT Gender Identity Male 07/27/2024 6:43 PM EDT Sexual Orientation Not on file documented as of this encounter Miscellaneous Notes * Telephone Encounter - Radha Ramos - 06/23/2024 3:12 PM EDT Reason for call: ONS Referral source: RD Call details: F/u phone call to patient r/t oral supplements; discussed that this is in process with [facility] unable to do Nepro for pt; [facility] which is similar to Nepro and rec 1-2/day. Pt voiced understanding; RD will continue to be avail prn. Wt Readings from Last 5 Encounters: 06/16/24 82.6 kg (182 lb 1.6 oz) 06/16/24 81.8 kg (180 lb 5.4 oz) 06/14/24 79.8 kg (175 lb 14.8 oz) 06/11/24 79.6 kg (175 lb 6.4 oz) 05/26/24 80.3 kg (177 lb) Ht Readings from Last 1 Encounters: 06/16/24 1.778 m (5' 10 ) BMI Readings from Last 1 Encounters: 06/16/24 26.13 kg/m?? Current Medications[1] [1] Current Outpatient Medications: erdafitinib (Balversa) 4 MG tablet, Take 2 tablets (8 mg total) by mouth daily. Take with or without food. Do not crush, chew, or dissolve. Swallow tablet(s) whole., Disp: 60 tablet, Rfl: 2 fluticasone (Flonase) 50 MCG/ACT nasal spray, Administer 1 spray into each nostril 1 (one) time each day. Shake gently. Before first use, prime pump. After use, clean tip and replace cap., Disp: 16 g, Rfl: 12 gabapentin (Neurontin) 800 MG tablet, Take 1 tablet by mouth 3 (three) times a day., Disp: , Rfl: hydrOXYzine pamoate (Vistaril) 25 MG capsule, Take 1 capsule (25 mg) by mouth 3 (three) times a dayif needed for anxiety., Disp: 30 capsule, Rfl: 0 loperamide (Imodium A-D) 2 MG tablet, 2 mg by mouth every 2 hours as needed for diarrhea; Not to exceed 16 mg in 24 hours, Disp: 30 tablet, Rfl: 5 magic mouthwash BLM (FIRST-Mouthwash) suspension, Use 15 mL in the mouth or throat 4 (four) times aday as needed for mucositis (swish and swallow prn for mouth sores)., Disp: 237 mL, Rfl: 3 montelukast (Singulair) 10 MG tablet, Take 1 tablet by mouth nightly., Disp: 30 tablet, Rfl: 0 morphine CR (MS Contin) 15 MG 12 hr tablet, TAKE 1 TABLET 2 TIMES EACH DAY DO NOT CRUSH, CHEW OR SPLIT., Disp: 60 tablet, Rfl: 0 mupirocin (Bactroban) 2 % ointment, Put muprocin in bilateral nares twice daily for 7 days, Disp: 1g, Rfl: 0 Nutritional Supplements (nepro/carb steady), Take 237 mL by mouth 2 (two) times a day., Disp: [id number], Rfl: 5 OLANZapine (ZyPREXA) 10 MG tablet, Take 1 tablet by mouth nightly., Disp: , Rfl: ondansetron ODT (Zofran-ODT) 4 MG disintegrating tablet, Take 2 tablets (8 mg) by mouth every 8 (eight) hours. Alternate with compazine, Disp: 60 tablet, Rfl: 3 oxybutynin XL (Ditropan-XL) 10 MG 24 hr tablet, Take 1 tablet (10 mg) by mouth 1 (one) time each day. Do not crush, chew, or split., Disp: 30 tablet, Rfl: 11 oxyCODONE (Roxicodone) 10 MG immediate release tablet, Take 1 tablet by mouth 4 (four) times a day as needed., Disp: , Rfl: pantoprazole (Protonix) 40 MG EC tablet, Take 1 tablet by mouth daily., Disp: , Rfl: polyethylene glycol (Miralax) 17 GM/SCOOP powder, Take 17 g by mouth daily., Disp: , Rfl: prochlorperazine (Compazine) 10 MG tablet, Take 1 tablet (10 mg) by mouth every 6 (six) hours if needed for nausea or vomiting., Disp: 30 tablet, Rfl: 5 senna-docusate sodium (Senokot-S) 8.6-50 MG tablet, Take 1 tablet by mouth 1 (one) time each day., Disp: 30 tablet, Rfl: 3 tamsulosin (Flomax) 0.4 MG 24 hr capsule, TAKE 1 CAPSULE BY MOUTH ONCE A DAY WITH DINNER, Disp: 30 capsule, Rfl: 0 Tirosint 125 MCG capsule, Take 1 capsule by mouth daily before breakfast., Disp: 90 capsule, Rfl: 0 tiZANidine (Zanaflex) 2 MG tablet, Take 1 tablet by mouth 3 (three) times a day as needed for muscle spasms., Disp: , Rfl: documented in this encounter Plan of Treatment Upcoming Encounters Date Type Department Care Team (Late st Contact Info) Description 08/27/2024 1:00 PM EDT Office Visit [facility] Multidisciplinary Oncology Clinic 800 [place] [address] Bobby Vazquez MD 800 [facility] Shant[address] [address] 08/27/2024 1:00 PM EDT Clinical Support [facility] Multidisciplinary Oncology Clinic 800 [place] [address] 08/27/2024 2:30 PM EDT Appointment [facility] Infusion [facility] 2 [address] [place] [address] 10/19/2024 11:30 AM EDT Office Visit [facility]cology [facility] 800 [place] [phone] Kym Romero, DISC PAD PLATE FILLER 800 [facility] Shant[address] [place] [address] 11/24/2024 11:00 AM EDT Office Visit [facility] [address] [place] [phone] Adal Franklin MD [address] [place] [address] 12/15/2024 1:00 PM EDT Office Visit [facility] [address] [facility] [place] [address] Efren Fallon MD [address] [facility] [address] [place] [address] 12/29/2024 9:30 AM EDT Clinical Support [facility] 800 [facility], [address] [place] [address] 12/29/2024 10:00 AM EDT Office Visit [facility] 800 [facility] [address] [place] [address] Carlito Mccartney MD 2195 [facility] 125 [place] [address] 03/23/2025 10:40 AM EST Office Visit [facility] 800 [facility] [address] [place] [address] Arabella Romero, DISC PAD PLATE FILLER 800 [place] [address] documented as of this encounter Visit Diagnoses [...] documented as of this encounter Care Teams Farrowing Worker Relationship Specialty Start Date End Date Efren Roy DO [address] [place] [address] PCP - General 03/04/23 Efren Roy DO [address] [place] [address] Pain Medicine 01/03/23 Rosa Maria Beltran APRN 2195 [facility] 125 [place] [address] Nurse Practitioner Family Medicine 07/21/23 Bobby Vazquez MD 800 [facility] S[address] [place] [address] Consulting Physician Medical Oncology 09/17/23 Cally Henderson PA 740 [address] [facility] [address] [place] [address] Physician Cuff Setter Urology 09/17/23 documented as of this encounter
--- OUTSIDE RECORDS SUMMARY | 2024-08-12 13:23 | XMS_ITS | Encounter Summary ---
Author Organization [facility] Address [address] [place] [address] Care Team Providers Care Waiter/Waitress Captain Name Role Phone Efren Roy DO Unavailable [phone] Efren Roy DO Primary Care Provider Rosa Maria Beltran APRN Unavailable [phone] Bobby Vazquez MD Unavailable Cally Henderson Unavailable Encounter Details Date Type Department Care Team (Late st Contact Info) Description 03/19/2023 Lab Requisition [facility] H Lab 800 [place] [address] Ryan Hewitt MD 800 [place] [phone] Malignant neoplasm of right ureter (CMS/HCC) Social History Tobacco Use Types Packs/Day Years Used Date Smoking Tobacco: Former Cigarettes 1 7 - 2006 Smokeless Tobacco: Current Snuff Comments:10 x daily Alcohol Use Standard Drinks/Week Comments Not Currently 0 (1 standard drink = 0.6 oz pure alcohol) Alcoholic Drinks/day: History of alcohol use PHQ-2 Answer Date Recorded Patient Health Questionnaire-2 Score 0 01/13/2023 Hunger Vital Sign Answer Date Recorded Within the past 12 months, y ou worried that your food would run out before you got the money to buy more. Never true 02/29/20 Within the past 12 months, t he food you bought just didn't last and you didn't have money to get more. Never true 02/28/2023 PRAPARE - Transportation Answer Date Re corded In the past 12 months, has l ack of transportation kept you from medical appointments or from getting medications? No 02/01 In the past 12 months, has l ack of transportation kept you from meetings, work, or from getting things needed for daily living? No 02/28/2023 Housing Stability Vital Sign Answer Epi e [...] health care facility (including now)? No 02/28/2023 CAGE ASSESSMENT Answer Date Recorded Cage unable [...] drink first t tianna in the morning (EYE-ELECTRICAL ENGINEERING PROFESSOR) to steady your nerves or to get rid of a hangover? 0 02/27/2023 CAGE Questionnaire Score 0 023 Utilities Answer Date Recorded In the past 12 months has th e electric, gas, oil, or water company threatened to shut off services in your home? No 02/28/2023 PHQ-2A Answer Date Recorded Patient Health Questionnaire-2 Score 0 01/13/2023 Sex and Gender Information Value Date Recorded Sex Assigned at Male 07/27/2024 6:43 PM EDT Legal Sex Male 6:40 PM EDT Gender Identity Male 07/27/2024 6:43 PM EDT Sexual Orientation Not on file documented as of this encounter Plan of Treatment Upcoming Encounters Date Type Department Care Team (Late st Contact Info) Description 08/27/2024 1:00 PM EDT Office Visit [facility] Multidisciplinary Oncology Clinic 800 [place] [phone] Bobby Vazquez MD 800 [facility] [address] [facility] 134 [place] [address] 08/27/2024 1:00 PM EDT Clinical Support [facility] 800 [place] [address] 08/27/2024 2:30 PM EDT Appointment [facility] Infusion [facility] 2 [address] [place] [address] 10/19/2024 11:30 AM EDT Office Visit [facility] Multidisciplinary Oncology Clinic 800 [place] [address] Kym Romero, TAX ECONOMIST 800 [facility] [address] [place] [address] 11/24/2024 11:00 AM EDT Office Visit [facility] Multidisciplinary Oncology Clinic 800 [place] [phone] Adal Franklin MD [address] [facility] [address] [place] [address] 12/15/2024 1:00 PM EDT Office Visit [facility] [address] [place] [address] Efren Fallon MD [address] [facility] [address] [place] [address] 12/29/2024 9:30 AM EDT Clinical Support [facility] 800 [facility], 2nd [place] [address] 12/29/2024 10:00 AM EDT Office Visit [facility] 800 [facility], 2nd [place] [address] Carlito Mccartney MD [address] [place] [address] 03/23/2025 10:40 AM EST Office Visit [facility] 800 [facility], 2nd [place] [address] Arabella Romero, TAX ECONOMIST 800 [place] [address] documented as of this encounter Procedures Procedure Name Priority Date/Time Associated Diagnosis Comments AP MISCELLANEOUS LAB TEST (SO) Routine 03/19/2023 12:00 AM EST Malignant neoplasm of right ureter (CMS/HCC) documented in this encounter Results * - AP Miscellaneous Test (03/19/2023 12:00 AM EST) Test name IN Profile-Ca ris 04/07/2023 3:42 PM EST [facility] Comment:[id number] Test Result See Scan 04/07/2023 3:42 PM EST [facility] See Scanned Result 04/07/2023 3:42 PM EST [facility] Tissue 03/19/2023 03/19/2023 3:5 1 PM EST us Ryan Hewitt MD LAB REF LAB BLOOD AND FLUID O RD Final Result [facility] 800 [place] [address] documented in this encounter Visit Diagnoses Diagnosis Malignant neoplasm of right ureter documented in this encounter Additional Health Concerns Infection Onset Date Last Indicated Resolved Time COVID-19 Rule-Out 12/29/2023 12/29/2023 12/29/2023 1:16 PM EDT COVID-19 Rule-Out 05/24/2024 05/24/2024 05/24/2024 8:55 PM EDT Respiratory Rule-Out 05/24/2024 05/24/2024 025 1:33 AM EDT Assessment Noted Time A fall risk assessment has been complete d for the patient 03/14/2023 8:06 AM EST A Body Mass Index follow-up plan has been documented for the patient 03/01/2023 12:26 PM EST documented as of this encounter Care Teams Waiter/Waitress Captain Relationship Specialty Start Date End Date Efren Roy DO [address] [place], [place] [phone] PCP - General 03/04/23 Efren Roy DO [address] [place], [place] [phone] Pain Medicine 01/03/23 Rosa Maria Beltran APRN [address] [facility] [address] [place] [phone] Nurse Practitioner Family Medicine 07/21/23 Bobby Vazquez MD 800 [facility] [address] [place] [address] Consulting Physician Medical Oncology 09/17/23 Cally Henderson PA [address] [place] [address] Physician Bookkeeper Receptionist Urology 09/17/23 documented as of this encounter
--- OUTSIDE RECORDS SUMMARY | 2024-08-12 13:23 | XMS_ITS | Encounter Summary ---
Author Organization [facility] Address [address] [place] [address] Care Team Providers Care Program Director Cable Television Name Role Phone Efren Roy DO Unavailable [phone] Efren Roy DO Primary Care Provider Rosa Maria Beltran APRN Unavailable Bobby Vazquez MD Unavailable Cally Henderson Unavailable Encounter Details Date Type Department Care Team (Late st Contact Info) Description 03/31/2023 Orders Only [facility] [address] [place] [address] Bobby Vazquez MD [address] [address] Social History Tobacco Use Types [...] the money to buy more. Never true 12/29/20 23 Within the past 12 months, t he [...] place to sleep or slept in a chcf (including now)? No 02/28/2023 CAGE ASSESSMENT Answer [...] drink first t tianna in the morning (EYE-MASS COMMUNICATIONS INSTRUCTOR) to steady your nerves or to get [...] Description 08/27/2024 1:00 PM EDT Office Visit [facility] Multidisciplinary Oncology Clinic [address] [place] [address] Bobby Vazquez MD 800 [facility] Kenneth [facility] 134 [place] [address] 08/27/2024 1:00 PM EDT Clinical Support [facility] [address] [place] [address] 08/27/2024 2:30 PM EDT Appointment [facility] Infusion [facility] 2 [address] [place] [address] 10/19/2024 11:30 AM EDT Office Visit [facility] Multidisciplinary Oncology Clinic [address] [place] [address] Kym Romero, HOT MOLDER 800 [facility] 134 [place] [address] 11/24/2024 11:00 AM EDT Office Visit [facility] Multidisciplinary Oncology Clinic [address] [place] [address] Adal Franklin MD 740 [facility] [address] [place] [address] 12/15/2024 1:00 PM EDT Office Visit [facility] 110 [place] [address] Efren Fallon MD 110 [facility] 550 [place] [address] 12/29/2024 9:30 AM EDT Clinical Support [facility] 800 [facility], 2nd [place] [address] 12/29/2024 10:00 AM EDT Office Visit [facility] 800 [facility], 2nd [place] [address] Carlito Mccartney MD 5 [facility] 125 [place] [address] 03/23/2025 10:40 AM EST Office Visit [facility] 800 [facility], 2nd [place] [address] Arabella Romero APRN 800 [place] [address] documented as of this encounter Visit Diagnoses Not on filedocumented in this encounter Additional Health Concerns Infection Onset Date Last Indicated Resolved Time COVID-19 Rule-Out 12/29/2023 12/29/2023 12/29/2023 1:16 PM EDT COVID-19 Rule-Out 05/24/2024 05/24/2024 05/24/2024 8:55 PM EDT Respiratory Rule-Out 05/24/2024 05/24/2024 025 1:33 AM EDT Assessment Noted Time A fall risk assessment has been complete d for the patient 03/26/2023 10:50 AM EST A Body Mass Index follow-up plan has been documented for the patient 03/01/2023 12:26 PM EST documented as of this encounter Care Teams Program Director Cable Television Relationship Specialty Start Date End Date Efren Roy DO [address] [place] [id number] PCP - General 03/04/23 Efren Roy DO [address] [place] [address] Pain Medicine 01/03/23 Rosa Maria Beltran APRN 219 [facility] 125 [place] [address] Nurse Practitioner Family Medicine 07/21/23 Bobby Vazquez MD [address] Shantel Cooper [facility] Saurav [address] [place] [address] Consulting Physician Medical Oncology 09/17/23 Cally Henderson PA [address] [place] [address] Physician Yolk Spray Drier Urology 09/17/23 documented as of this encounter
--- OUTSIDE RECORDS SUMMARY | 2024-08-12 13:23 | XMS_ITS | Encounter Summary ---
Author Organization [facility] Address [address] [place] [address] Care Team Providers Care Proof Clerk Name Role Phone Efren Roy DO Unavailable [phone] Efren Roy DO Primary Care Provider [phone] Rosa Maria Beltran APRN Unavailable [phone] Bobby Vazquez MD Unavailable Cally Henderson Unavailable [phone] Encounter Details Date Type Department Care Team (Latest Contact Info) Description 08/02/2024 Travel Social History Tobacco Use Types Packs/Day [...] time in the past 12 m [facility], were you homeless or living [...] drink first t tianna in the morning (EYE-NUTRITION FACULTY MEMBER) to steady your nerves or to get [...] Description 08/27/2024 1:00 PM EDT Office Visit [facility] Multidisciplinary Oncology Clinic 800 [place] [address] Bobby Vazquez MD 800 [facility] Sh[address] [address] 08/27/2024 1:00 PM EDT Clinical Support [facility] Multidisciplinary Oncology Clinic 800 [place] [address] 08/27/2024 2:30 PM EDT Appointment [facility] Infusion Clinic 2 7[address] [place] [address] 10/19/2024 11:30 AM EDT Office Visit [facility] Multidisciplinary Oncology Clinic 800 [place] [address] Kym Romero, HEATING AND VENTILATING TENDER 800 [facility] Shantel Barrerason [address] [address] 11/24/2024 11:00 AM EDT Office Visit [facility] Multidisciplinary Oncology Clinic 800 [place] [address] Adal Franklin MD [address] [facility] [address] [place] [address] 12/15/2024 1:00 PM EDT Office Visit [facility] [address] [place] [address] Efren Fallon MD 110 [address] [facility] Saur[address] [place] [address] 12/29/2024 9:30 AM EDT Clinical Support [facility] 800 [facility], 2nd [place] [address] 12/29/2024 10:00 AM EDT Office Visit [facility] 800 [facility], 2nd [place] [address] Carlito Mccartney MD 2195 [facility] 125 [place] [address] 03/23/2025 10:40 AM EST Office Visit [facility] 800 [facility], 2nd [place] [address] Arabella Romero, HEATING AND VENTILATING TENDER 800 [place] [address] documented as of this encounter Visit Diagnoses [...] documented as of this encounter Care Teams Proof Clerk Relationship Specialty Start Date End Date Erfen Roy DO [address] [place] [address] PCP - General 03/04/23 Efren Roy DO 439 [place] [address] Pain Medicine 01/03/23 Rosa Maria Beltran APRN 2195 [facility] S[address] [place] [address] Nurse Practitioner Family Medicine 07/21/23 Bobby Vazquez MD 800 [facility] S[facility] [address] [place] [address] Consulting Physician Medical Oncology 09/17/23 Cally Henderson PA [address] [place] [address] Physician Fire Sprinkler Inspector Urology 09/17/23 documented as of this encounter
--- OUTSIDE RECORDS SUMMARY | 2024-08-12 13:23 | XMS_ITS | Encounter Summary ---
Author Organization [facility] Address [address] [place] [address] Care Team Providers Care Cisco Administrator Name Role Phone Kirill Efren Jaqueline HOWELL Unavailable [phone] Efren Roy DO Primary Care Provider [phone] Rosa Maria Beltran APRN Unavailable Bobby Vazquez MD Unavailable Cally Henderson Unavailable Reason for Visit * Reason Onset Date Comments Med Refill 07/29/2024 Encounter Details Date Type Department Care Team (Late st Contact Info) Description 07/29/2024 Refill [facility] [address] [place] [address] Bobby Vazquez MD [address] [address] Social History Tobacco Use Types Packs/Day Years [...] drink first t tianna in the morning (EYE-ALGORITHM DESIGN ENGINEER) to steady your nerves or to get [...] Description 08/27/2024 1:00 PM EDT Office Visit [facility] Multidisciplinary Oncology Clinic [address] [place] [address] Bobby Vazqeuz MD 800 [facility] Sh[address] [address] 08/27/2024 1:00 PM EDT Clinical Support [facility] Multidisciplinary Oncology Clinic [address] [place] [address] 08/27/2024 2:30 PM EDT Appointment [facility] Infusion [facility] 2 [address] [place] [address] 10/19/2024 11:30 AM EDT Office Visit [facility] Multidisciplinary Oncology Clinic [address] [place] [address] Kym Romero, SHERIFF 800 [facility] [address] [place] [address] 11/24/2024 11:00 AM EDT Office Visit [facility] [address] [place] [address] Adal Franklin MD [address] [place] [address] 12/15/2024 1:00 PM EDT Office Visit [facility] 110 [facility] [place] [address] Efren Fallon MD 110 [address] [facility] 550 [place] [address] 12/29/2024 9:30 AM EDT Clinical Support [facility] Res[facility] 800 [facility], 2nd [place] [address] 12/29/2024 10:00 AM EDT Office Visit [facility] [address] [address] Carlito Mccartney MD 2195 [facility] 125 [place] [address] 03/23/2025 10:40 AM EST Office Visit [facility] Res[facility] 800 [facility], 2nd [place] [address] Arabella Romeor, SHERIFF [address] [place] [address] documented as of this encounter Visit Diagnoses [...] documented as of this encounter Care Teams Cisco Administrator Relationship Specialty Start Date End Date Efren Roy DO 439 [place] [address] PCP - General 03/04/23 Efren Roy DO [address] [place] [address] [id number] Pain Medicine 01/03/23 Rosa Maria Beltran APRN 2195 [facility] 125 [place] [address] Nurse Practitioner Family Medicine 07/21/23 Bobby Vazquez MD 800 [facility] S[address] [place] [address] Consulting Physician Medical Oncology 09/17/23 Cally Henderson PA 740 [facility] [address] [place] [address] Physician Board Certified Behavioral Analyst Urology 09/17/23 documented as of this encounter
--- OUTSIDE RECORDS SUMMARY | 2024-08-12 13:23 | XMS_ITS | Encounter Summary ---
Author Organization [facility] Address [address] [place] [address] Care Team Providers Care Roving Winder Name Role Phone Efren Roy DO Unavailable [phone] Efren Roy DO Primary Care Provider Rosa Maria Beltran APRN Unavailable [phone] Bobby Vazquez MD Unavailable Cally Henderson Unavailable Encounter Details Date Type Department Care Team (Late st Contact Info) Description 08/02/2024 Results Follow-Up [facility]ck [facility] Respiratory [address] 2[address] [place] [address] Carlito Mccartney MD 6696 [facility] [address] 125 [place] [address] Social History Tobacco Use Types Packs/Day Years [...] any time in the past 12 m [facility], were you homeless or living in a [...] drink first t tianna in the morning (EYE-DRY PAN FEEDER) to steady your nerves or to get rid of a hangover? 0 02/27/2023 CAGE Questionnaire Score 0 023 Utilities Answer Date Recorded In the past 12 months has e [employer], gas, oil, or water company threatened to [...] Description 08/27/2024 1:00 PM EDT Office Visit [facility] Multidisciplinary Oncology Clinic 800 [place] [address] Bobby Vazquez MD 800 [facility] Shantel Cooper [address] [address] 08/27/2024 1:00 PM EDT Clinical Support [facility] Multidisciplinary Oncology Clinic 800 [place] [address] 08/27/2024 2:30 PM EDT Appointment [facility] Infusion [facility] 2 [address] [place] [address] 10/19/2024 11:30 AM EDT Office Visit [facility] Multidisciplinary Oncology Clinic 800 [place] [address] Kym Romero, PUMP PRESS OPERATOR [address] Shantel Cooper [address] [place] [address] 11/24/2024 11:00 AM EDT Office Visit [facility] 800 [place] [address] Adal Franklin MD [address] [facility] [address] [place] [address] 12/15/2024 1:00 PM EDT Office Visit [facility] [address] [facility] [place] [address] Efren Fallon MD 110 [address] [facility] 550 [place] [address] 12/29/2024 9:30 AM EDT Clinical Support [facility] Respiratory 800 [facility], 2nd [place] [address] 12/29/2024 10:00 AM EDT Office Visit [facility] Res[facility] [address] [address] Carlito Mccartney MD 2195 [facility] 125 [place] [address] 03/23/2025 10:40 AM EST Office Visit [facility] [address] [address] Arabella Romero, PUMP PRESS OPERATOR 800 [place] [address] documented as of this encounter Visit Diagnoses [...] documented as of this encounter Care Teams Roving Winder Relationship Specialty Start Date End Date Efren Roy DO 439 [place] [address] PCP - General 03/04/23 Efren Roy DO 439 [place] [address] Pain Medicine 01/03/23 Rosa Maria Beltran APRN 2195 [facility] [address] 125 [place] [address] Nurse Practitioner Family Medicine 07/21/23 Bobby Vazquez MD 800 [facility] 134 [place] [address] Consulting Physician Medical Oncology 09/17/23 Cally Henderson PA 740 [address] [facility] [address] [place] [address] Physician Delivery Crew Member Urology 09/17/23 documented as of this encounter
--- OUTSIDE RECORDS SUMMARY | 2024-08-12 13:23 | XMS_ITS | Encounter Summary ---
Author Organization [facility] Address [address] 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) Bobby Vazquez MD 800 [facility] Shantel Cooper [address] [address] Phone: tel: fax: [facility] CC Hematology/BMT and Cellular Therapy Program [address] [place] [address] Phone: tel: fax: Referral ID Status Reason Start Date Expiration Date Visits Requested Visits Authorized [id number] Authorized Consult and Treat 08/10/2024 02/09/2026 1 1 Encounter Details Date Type Department Care Team (Late st Contact Info) Description 08/10/2024 Telephone [facility] 800 [place] [address] Bobby Vazquez MD [address] [place] [address] Social History Tobacco Use Types Packs/Day [...] any time in the past 12 m [facility], were you homeless or living in [...] drink first t tianna in the morning (EYE-RUNNING INSTRUCTOR) to steady your nerves or to [...] encounter Miscellaneous Notes * Telephone Encounter - Lin Breen - 08/10/2024 11:35 AM EDT Urgent referral placed, last office note mentions pt is on waiting list. * Telephone Encounter - Lucy Markham - 08/10/2024 10:42 AM EDT Patient Phone Message Reason for Call: Pts sister is calling because when they were seen last week they were told he would be referred to palliative care and they haven't heard anything yet. His pain is getting worse so they really need to be seen. Please call with update. Best contact number and optimal time of day to reach caller: [phone] Note: Please do not reply to this message. Follow-up communication and further actions as a result of this message need to be communicated with the patient directly, if the patient is not active onMyChart. If the patient is active on MyChart, they will receive notification of the communication/outcome via [employer]. documented in this encounter Plan of Treatment Upcoming Encounters Date Type Department Care Team (Late st Contact Info) Description 08/27/2024 1:00 PM EDT Office Visit [facility] Multidisciplinary Oncology Clinic 800 [place] [address] Bobby Vazquez MD 800 [facility] Shantel Cooper [address] [address] 08/27/2024 1:00 PM EDT Clinical Support [facility] Multidisciplinary Oncology Clinic 800 [place] [address] 08/27/2024 2:30 PM EDT Appointment [facility] Infusion Clinic 2 [address] [place] [address] 10/19/2024 11:30 AM EDT Office Visit [facility] Multidisciplinary Oncology Clinic [address] [place] [address] Kym Romero, POULTRY FIELD SERVICE TECHNICIAN 800 [facility] Sh[address] [place] [address] 11/24/2024 11:00 AM EDT Office Visit [facility] 800 [place] [address] Adal Franklin MD [address] [place] [address] 12/15/2024 1:00 PM EDT Office Visit [facility] 110 [place] [address] Efren Fallon MD 110 [address] [facility] 550 [place] [address] 12/29/2024 9:30 AM EDT Clinical Support [facility] Res[facility] 800 [facility], 2nd [place] [address] 12/29/2024 10:00 AM EDT Office Visit [facility] Res[facility] [address] [address] Carlito Mccartney MD 2195 [facility] 125 [place] [address] 03/23/2025 10:40 AM EST Office Visit [facility]ck [facility] Respiratory 800 [facility] 2nd [place] [address] Arabella Romero, POULTRY FIELD SERVICE TECHNICIAN 800 [place] [address] Scheduled Referrals Name Type Priority Associated Diagnoses Orde r Schedule Ambulatory referral to Palliative Care Outpatient Referral Routine Malignant neoplasm of urinary bladder, unspecified site (CMS/HCC) Malignant tumor of right ureter (CMS/HCC) 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) Expected: 08/10/2024 (Approximate), Expires: 2026 documented as of this encounter Visit Diagnoses Diagnosis Malignant neoplasm of urinary bladder, unspecified site (CMS/HCC)- Primary Malignant tumor of right ureter (CMS/HCC) 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) documented in this encounter Additional Health Concerns Assessment Noted Time PHQ-9 Depression Total Score: 0 07/15/19 25 12:22 PM EDT A fall risk assessment has been complete d for the patient 08/06/2024 12:31 PM EDT A Body Mass Index follow-up plan has been documented for the patient 05/27/2024 1:13 PM EDT documented as of this encounter Care Teams Job Development Specialist Relationship Specialty Start Date End Date Efren Roy DO 439 [place] [address] PCP - General 03/04/23 Efren Roy DO [address] [place] [address] Pain Medicine 01/03/23 Rosa Maria Beltran APRN [address] [place] [address] Nurse Practitioner Family Medicine 07/21/23 Bobby Vazquez MD 800 [facility] 134 [place] [address] Consulting Physician Medical Oncology 09/17/23 Cally Henderson PA [address] [place] [address] Physician Industrial Relations Representative Urology 09/17/23 documented as of this encounter
--- OUTSIDE RECORDS SUMMARY | 2024-08-12 13:23 | XMS_ITS | Encounter Summary ---
Author Organization [facility] Address [address] [place] [address] Care Team Providers Care Branch Service Representative Name Role Phone Efren Roy DO Unavailable [phone] Efren Roy DO Primary Care Provider [phone] Rosa Maria Beltran APRN Unavailable [phone] Bobby Vazquez MD Unavailable Cally Henderson Unavailable [phone] Encounter Details Date Type Department Care Team (Latest Contact Info) Description 06/13/2024 Travel Social History Tobacco Use Types Packs/Day [...] drink first t tianna in the morning (EYE-SALES AGENT BUSINESS SERVICES) to steady your nerves or to get [...] 1:00 PM EDT Office Visit [facility] Multidisciplinary Oncology Clinic 800 [place] [address] Bobby Vazquez MD 800 [facility] [address] [address] 08/27/2024 1:00 PM EDT Clinical Support [facility] Multidisciplinary Oncology Clinic 800 [place] [address] 08/27/2024 2:30 PM EDT Appointment [facility] Infusion Clinic 2 [address] [place] [address] 10/19/2024 11:30 AM EDT Office Visit [facility] Multidisciplinary Oncology Clinic [address] [place] [address] Kym Romero APRN 800 [facility] Kenneth [address] [address] 11/24/2024 11:00 AM EDT Office Visit [facility] Multidisciplinary Oncology Clinic 800 [place] [address] Adal Fraknlin MD [address] [place] [address] 12/15/2024 1:00 PM EDT Office Visit [facility] Eye [facility] [address] [facility] [address] Efren Fallon MD [address] [facility] [address] [place] [address] 12/29/2024 9:30 AM EDT Clinical Support [facility] Respiratory 800 [facility], 2nd [place] [address] 12/29/2024 10:00 AM EDT Office Visit [facility]ck [facility] Respiratory 800 [facility], 2nd [place] [address] Carlito Mccartney MD [facility] 125 [place] [address] 03/23/2025 10:40 AM EST Office Visit [facility] Head[facility] Neck [facility] Respiratory 800 [facility], [address]nd [place] [address] Arabella Romero, WOOL FLEECE GRADER 800 [place] [address] documented as of this encounter Visit Diagnoses Not on filedocumented in this encounter Additional Health Concerns Assessment Noted Time PHQ-9 Depression Total Score: 0 03/19/19 25 8:50 AM EST A fall risk assessment has been complete d for the patient 06/11/2024 9:42 AM EDT A Body Mass Index follow-up plan has been documented for the patient 05/27/2024 1:13 PM EDT documented as of this encounter Care Teams Branch Service Representative Relationship Specialty Start Date End Date Efren Roy DO [address] [place] [address] PCP - General 03/04/23 Efren Roy DO [address] [place] [address] Pain Medicine 01/03/23 Rosa Maria Beltran APRN 2195 [facility] [address] 125 [place] [address] Nurse Practitioner Family Medicine 07/21/23 Bobby Vazquez MD 800 [facility] [address] [place] [address] Consulting Physician Medical Oncology 09/17/23 Cally Henderson PA [address] [place] [address] Physician Burrer Hand Urology 09/17/23 documented as of this encounter
--- OUTSIDE RECORDS SUMMARY | 2024-08-12 13:23 | XMS_ITS | Encounter Summary ---
Author Organization [facility] Address [address] [place] [address] Care Team Providers Care Hydraulic Jack Mechanic Name Role Phone Efren Roy DO Unavailable [phone] Efren Roy DO Primary Care Provider [phone] Rosa Maria Beltran APRN Unavailable [phone] Bobby Vazquez MD Unavailable Cally Henderson Unavailable [phone] Encounter Details Date Type Department Care Team (Latest Contact Info) Description 08/06/2024 Travel Social History Tobacco Use Types Packs/Day [...] any time in the past 12 m [facility], were you homeless or living [...] drink first t tianna in the morning (EYE-BUILDING RIGGER) to steady your nerves or to get rid of a hangover? 0 02/27/2023 CAGE Questionnaire Score 0 023 Utilities Answer Date Recorded In the past 12 months has th [email or web address], gas, oil, or water company threatened [...] Gretchen Wei documented as of this encounter Plan of Treatment Upcoming Encounters Date Type Department Care Team (Late st Contact Info) Description 08/27/2024 1:00 PM EDT Office Visit [facility] [address] [place] [address] Bobby Vazquez MD 800 [facility] Sh[address] [address] 08/27/2024 1:00 PM EDT Clinical Support [facility] Multidisciplinary Oncology Clinic [address] [place] [address] 08/27/2024 2:30 PM EDT Appointment [facility] 2 [address] [place] [address] 10/19/2024 11:30 AM EDT Office Visit [facility] [address] [place] [address] Kym Romero, FINANCIAL AIDS OFFICER 800 [facility] [address] [place] [address] 11/24/2024 11:00 AM EDT Office Visit [facility] [address] [place] [address] Adal Franklin MD [address] [place] [address] 12/15/2024 1:00 PM EDT Office Visit [facility] [address] [place] [address] Efren Fallon MD [address] [facility] [address] [place] [address] 12/29/2024 9:30 AM EDT Clinical Support [facility] 800 [facility], 2nd [place] [address] 12/29/2024 10:00 AM EDT Office Visit [facility] [address] [address] Carlito Mccartney MD 2195 [facility] 125 [place] [address] 03/23/2025 10:40 AM EST Office Visit [facility] [address] [address] Arabella Romero, FINANCIAL AIDS OFFICER [address] [place] [address] documented as of this encounter [...] documented as of this encounter Care Teams Hydraulic Jack Mechanic Relationship Specialty Start Date End Date Efren Roy DO [address] [place] [address] [id number] PCP - General 03/04/23 Efren Roy DO [address] [place] [address] Pain Medicine 01/03/23 Rosa Maria Beltran APRN 2195 [facility] 125 [place] [address] Nurse Practitioner Family Medicine 07/21/23 Bobby Vazquez MD 800 [facility] [address] [place] [address] Consulting Physician Medical Oncology 09/17/23 Cally Henderson PA [address] [facility] [address] [place] [address] Physician Hair Colorist Urology 09/17/23 documented as of this encounter
--- OUTSIDE RECORDS SUMMARY | 2024-08-12 13:23 | XMS_ITS | Encounter Summary ---
Author Organization [facility] Address [address] [place] [address] Care Team Providers Care [employer] Hazmat Tanker Driver Name Role Phone Efren Roy DO Unavailable [phone] Efren Roy DO Primary Care Provider [phone] Rosa Maria Beltran APRN Unavailable [phone] Bobby Vazquez MD Unavailable Cally Henderson Unavailable [phone] Encounter Details Date Type Department Care Team (Latest Contact Info) Description 06/14/2024 Travel Social History Tobacco Use Types Packs/Day [...] place to sleep or slept in a detention (including now)? No 02/28/2023 PHQ-9 Answer Date [...] any time in the past 12 m [facility], were you homeless or living in a detention (including now)? No 05/27/2024 CAGE ASSESSMENT Answer [...] drink first t tianna in the morning (EYE-BAR CAPTAIN) to steady your nerves or to get [...] Description 08/27/2024 1:00 PM EDT Office Visit [facility] Multidisciplinary Oncology Clinic [address] [place] [address] Bobby Vazquez MD 800 [facility] [address] [address] 08/27/2024 1:00 PM EDT Clinical Support [facility] Multidisciplinary Oncology Clinic [address] [place] [address] 08/27/2024 2:30 PM EDT Appointment [facility] Infusion Clinic 2 [address] [place] [address] 10/19/2024 11:30 AM EDT Office Visit [facility] Multidisciplinary Oncology Clinic [address] [place] [address] Kym Romero, ONCOLOGY TRANSPLANT NETWORK MANAGER 800 [facility] Shantel Barrerason [address] [address] 11/24/2024 11:00 AM EDT Office Visit [facility] Multidisciplinary Oncology Clinic [address] [place] [address] Adal Franklin MD [address] [facility] [address] [place] [address] 12/15/2024 1:00 PM EDT Office Visit [facility] [address] [place] [address] Efren Fallon MD [address] [facility] [address] [place] [address] 12/29/2024 9:30 AM EDT Clinical Support [facility] 800 [facility], 2nd [place] [address] 12/29/2024 10:00 AM EDT Office Visit [facility] 800 [facility], 2nd [place] [address] Carlito Mccartney MD 2195 [facility] 125 [place] [address] 03/23/2025 10:40 AM EST Office Visit [facility] 800 [facility], 2nd [place] [address] Arabella Romero, ONCOLOGY TRANSPLANT NETWORK MANAGER [address] [place] [address] documented as of this encounter Visit Diagnoses [...] documented as of this encounter Care Teams [employer] Hazmat Tanker Driver Relationship Specialty Start Date End Date Efren Roy DO [address] [place] [address] PCP - General 03/04/23 Efren Roy DO [address] [place] [address] Pain Medicine 01/03/23 Rosa Maria Beltran APRN [address] [facility] [address] [place] [address] Nurse Practitioner Family Medicine 07/21/23 Bobby Vazquez MD 800 [facility] [place] [address] Consulting Physician Medical Oncology 09/17/23 Cally Henderson PA [address] [place] [address] Physician Sanitary Plumber Urology 09/17/23 documented as of this encounter
--- OUTSIDE RECORDS SUMMARY | 2024-08-12 13:24 | XMS_ITS | Encounter Summary ---
Author Organization [facility] Address [address] [place] [address] Care Team Providers Care Theoretical Physics Teacher Name Role Phone Efren Roy DO Unavailable [phone] Efren Roy DO Primary Care Provider [phone] Rosa Maria Beltran APRN Unavailable Bobby Vazquez MD Unavailable Cally Henderson Unavailable [phone] Encounter Details Date Type Department Care Team (Late st Contact Info) Description 07/27/2024 Telephone [facility] 800 [place] [address] Bobby Vazquez MD [address] [address] Social History Tobacco Use Types [...] place to sleep or slept in a prison (including now)? No 02/28/2023 PHQ-9 Answer Date [...] time in the past [address] [facility], were you homeless or living in a prison (including now)? No 05/27/2024 CAGE ASSESSMENT Answer [...] drink first t tianna in the morning (EYE-LEAK DETECTION ENGINEER) to steady your nerves or to get rid of a hangover? 0 02/27/2023 CAGE Questionnaire Score 0 023 Utilities Answer Date Recorded In the past 12 months has th e [employer], gas, oil, or water company threatened to [...] Description 08/27/2024 1:00 PM EDT Office Visit [facility] Mult[facility]isciplinary Oncology Clinic 800 [place] [address] Bobby Vazquez MD 800 [facility] Shantel Cooper [address] [address] 08/27/2024 1:00 PM EDT Clinical Support [facility] 800 [place] [address] 08/27/2024 2:30 PM EDT Appointment [facility] 2 [address] [place] [address] 10/19/2024 11:30 AM EDT Office Visit [facility] [address] [place] [address] Kym Romero, X RAY TECHNICIAN 800 [facility] [address] [place] [address] 11/24/2024 11:00 AM EDT Office Visit [facility] 800 [place] [address] Adal Franklin MD [address] [place] [address] 12/15/2024 1:00 PM EDT Office Visit [facility] [address] [facility] [place] [address] Efren Fallon MD [address] [facility] [address] [place] [address] 12/29/2024 9:30 AM EDT Clinical Support [facility] 800 [facility], [address] [place] [address] 12/29/2024 10:00 AM EDT Office Visit [facility] 800 [facility], [address] [place] [address] Carlito Mccartney MD 2195 [facility] [address] [place] [address] 03/23/2025 10:40 AM EST Office Visit [facility] 800 [facility], [address] [place] [address] Arabella Romero, X RAY TECHNICIAN 800 [place] [address] documented as of this encounter Visit Diagnoses [...] documented as of this encounter Care Teams Theoretical Physics Teacher Relationship Specialty Start Date End Date Efren Roy DO [address] [place], [place] [phone] PCP - General 03/04/23 Efren Roy DO [address] [place] [address] Pain Medicine 01/03/23 Rosa Maria Beltran, JYOTSNA 2195 [facility] [address] [place] [address] Nurse Practitioner Family Medicine 07/21/23 Bobby Vazquez MD 800 [facility] [address] [place] [address] Consulting Physician Medical Oncology 09/17/23 Cally Henderson PA [address] [place] [address] Physician Commercial Loan Analyst Urology 09/17/23 documented as of this encounter
--- OUTSIDE RECORDS SUMMARY | 2024-08-12 13:24 | XMS_ITS | Encounter Summary ---
Author Organization [facility] Address [address] [place] [address] Care Team Providers Care Newscast Producer Name Role Phone Efren Roy DO Unavailable [phone] Efren Roy DO Primary Care Provider Rosa Maria Beltran APRN Unavailable Bobby Vazquez MD Unavailable Cally Henderson Unavailable [phone] Encounter Details Date Type Department Care Team (Late st Contact Info) Description 07/27/2024 Telephone [facility] [address] [place] [address] Bobby Vazquez MD [address] [address] Social History Tobacco Use Types [...] any time in the past 12 m [facility], were you homeless or living [...] drink first t tianna in the morning (EYE-PUMP MECHANIC) to steady your nerves or to get rid of a hangover? 0 02/27/2023 CAGE Questionnaire Score 0 023 Utilities Answer Date Recorded In the past 12 months has th e [employer], gas, oil, or water company threatened to [...] * Telephone Encounter - Lin Breen - 07/27/2024 9:01 AM EDT Addressed in separate encounter. * Telephone Encounter - Lucy Markham - 07/27/2024 8:41 AM EDT Patient Phone Message Reason for Call: Sister Minerva is calling to find out if or when infusion will be r/s. Pt was scheduled for last Friday but ended up in the ED instead. Please call to discuss Best contact number and optimal time of day to reach caller: [phone] Note: Please do not reply to this message. Follow-up communication and further actions as a result of this message need to be communicated with the patient directly, if the patient is not active onMyChart. If the patient is active on MyChart, they will receive notification of the communication/outcome via MyChart. documented in this encounter Plan of Treatment Upcoming Encounters Date Type Department Care Team (Late st Contact Info) Description 08/27/2024 1:00 PM EDT Office Visit [facility] Multidisciplinary Oncology Clinic [address] [place] [address] Bobby Vazquez MD 800 [facility] [address] [place] [address] 08/27/2024 1:00 PM EDT Clinical Support [facility] Multidisciplinary Oncology Clinic [address] [place] [address] 08/27/2024 2:30 PM EDT Appointment [facility] Infusion Clinic 2 [address] [place] [address] 10/19/2024 11:30 AM EDT Office Visit [facility] Multidisciplinary Oncology Clinic [address] [place] [address] Kym Romero, TRUCK SALES REPRESENTATIVE 800 [facility] [address] [place] [address] 11/24/2024 11:00 AM EDT Office Visit [facility] Multidisciplinary Oncology Clinic [address] [place] [address] Adal Franklin MD [address] [facility] [address] [place] [address] 12/15/2024 1:00 PM EDT Office Visit [facility] [address] [place] [address] Efren Fallon MD 110 [facility] 550 [place] [address] 12/29/2024 9:30 AM EDT Clinical Support [facility] 800 [facility], 2nd [place] [address] 12/29/2024 10:00 AM EDT Office Visit [facility] [address] [facility], 2nd [place] [address] Carlito Mccartney MD 2194 [facility] 125 [place] [address] 03/23/2025 10:40 AM EST Office Visit [facility] [address] [facility], 2nd [place] [address] Arabella Romero, TRUCK SALES REPRESENTATIVE [address] [place] [address] documented as of this encounter [...] documented as of this encounter Care Teams Newscast Producer Relationship Specialty Start Date End Date Efren Roy DO [address] [place] [address] PCP - General 03/04/23 Efren Roy DO [address] [place] [address] Pain Medicine 01/03/23 Rosa Maria Beltran APRN [address] [place] [address] Nurse Practitioner Family Medicine 07/21/23 Bobby Vazquez MD 800 [facility] Shantel Sadlerrickson [facility] S[address] [place] [address] Consulting Physician Medical Oncology 09/17/23 Cally Henderson PA [address] [address] Physician Altitude Chamber Technician Urology 09/17/23 documented as of this encounter
--- OUTSIDE RECORDS SUMMARY | 2024-08-12 13:24 | XMS_ITS ---
Author Organization [facility] Address [address] [place] [address] Care Team Providers Care Occupational Therapy Director Name Role Phone Efren Roy DO Unavailable [phone] Efren Roy DO Primary Care Provider Rosa Maria Beltran APRN Unavailable Bobby Vazquez MD Unavailable Cally Henderson Unavailable Active Problems Problem Noted Date Diagnosed Date Hydronephrosis 07/28/2024 Cancer related pain 05/25/2024 Non-seasonal allergic rhinitis 05/24/2024 Second hand smoke exposure 02/04/2024 Adverse effect of anesthesia 10/15/2023 Overview (10/15/2023): aspirated during colonoscopy few yrs. ago - also DDD cervical area DDD (degenerative disc disease), lumbar 10/15/19 Overview (10/15/2023): and cervical Dental disease 10/15/2023 Overview (10/15/2023): endentulous Status post administration of cardiotoxic chemot herapy 04/17/2023 Tobacco use disorder 04/09/2023 Cervical radicular pain 04/09/2023 Thyroid malignant neoplasm 04/09/2023 Hyperglycemia 04/09/2023 Dehydration 03/28/2023 Malignant neoplasm of urinary bladder 03/26/2023 Nausea 03/26/2023 Weight loss 03/26/2023 Flank pain 03/26/2023 Bilateral low back pain with right-sided sciatic a 03/26/2023 Complex care coordination 03/26/2023 Other chronic pain 03/14/2023 Hypertensive chronic kidney disease with stage 1 through stage 4 chronic kidney disease, or unspecified chronic kidney disease 02/28/2023 Hypothyroidism, unspecified 02/28/2023 Hyperlipidemia, unspecified 02/27/2023 Tachycardia, unspecified 02/27/2023 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 Essential (primary) hypertension 12/20/2022 Hydronephrosis with ureteral stricture, not elsewhere classified 12/20/2022 Sacroiliitis, not elsewhere classified Gastro-esophageal reflux disease without esophag itis 11/01/2022 Postprocedural hypothyroidism 11/01/2022 Other spondylosis with radiculopathy, lumbar reg ion 07/25/2022 Occlusion and stenosis of unspecified carotid ar ana m 05/28/2022 Current Treatment and Therapy Plans (ONC) Med Onc Outpatient Electrolyte Replacement Protocol* Plan Start Date: 02/04/2024 Plan Provider:Shameka Greer APRN Linked Problems Malignant neoplasm of urinar y bladder, unspecified site (CMS/HCC) Treatment Medications No medications scheduled. DOCEtaxel Every 21 Days* Plan Start Date:07/14/2024 Plan Provider:Bobby Vazquez MD Linked Problems Malignant tumor of right ure ter (CMS/HCC) Treatment Medications Current Day (Day 1 , Cycle 2 - Planned for 08/27/2024) Next Day (Day 1, Cycle 3 - Planned for 09/17/2024) DOCEtaxel (Taxotere)DOCEtaxe l (Taxotere) chemo IVPB 250 mL DOCEtaxel (Taxotere) 150 mg in sodium chloride 0.9 % 250 mL IVPB DOCEtaxel (Taxotere) 150 mg in sodium chloride 0.9 % 250 mL IVPB Other Current Plans IV Fluid NO Electrolytes* Plan Start Date:03/28/2023 Plan Provider:Bobby Vazquez MD Linked Problems Dehydration Treatment Medications No medications scheduled. Past Treatment and Therapy Plans Oncology Treatment Plan Name Start Date Discontinue Date Treatment Medications Discontinue Reason Plan Provider Cycles [id number]: Arm 1: Sacituzumab govitecan weekly x 2 Every 21 Days 11/28/1904/28/2024 sacituzumab govitecan-hziy (Trodelvy)sacituzum ab govitecan-hziy (Trodelvy) IVPB - 250 mL Progression Bobby Vazquez MD 7 of 18 cycles started ENFORTUMAB VEDOTIN WEEKLY X 2 / PEMBROLIZUMAB EVERY 21 DAYS 03/26/19 24 10/01/2023 enfortumab vedotin-ejfv (Padcev)enfortumab vedotin-ejfv IVPBpembrolizumab (Keytruda)pembroliz umab (Keytruda) IVPB Therapy Complete Bobby Vazquez MD 8 of 12 cycles started Gemcitabine Weekly X 2 / Cisplatin Every 21 Days 023 03/13/2023 CISplatin (Platinol)CISplatin (Platinol) IVPBgemcitabine (Gemzar)gemcitabine (Gemzar) IVPB Other (See Comments) Bobby Vazquez MD 3 of 4 cycles started Lifetime Dose Tracking * Chemical Lifetime Dose Automatic Entry Manual Entr y Fluoro Time 1.369 minutes 1.369 minutes 0 minutes Air Kerma 17.06 mGy 17.06 mGy 0 mGy Radiation (DLP) Retired 368 mGy-cm. 368 mGy-cm. 0 mG y-cm. CTDIvol 10.8 mGy 10.8 mGy 0 mGy Air Kerma Area Product 20.24 Gym 20.24 Gym 0 Gym Resolved Problems Problem Noted Date Diagnosed Date Resolved Date Pneumonia of right lower lob e due to infectious organism 05/24/2024 05/27/2024 Cancer 10/15/2023 01/28/2024 Overview (10/15/2023): thyroid - surgery only Congested nose 10/15/2023 01/28/2024 Personal history of other di seases of the circulatory system 10/15/2023 01/28/2024 Overview (10/15/2023): History of hypertension Personal history of other di seases of the digestive system 10/15/2023 01/28/2024 Overview (10/15/2023): History of esophageal reflux Personal history of other di seases of the musculoskeletal system and connective tissue 10/15/2023 01/28/2024 Overview (10/15/2023): History of backache Second hand smoke exposure 04/09/2023 1 03/29/2023 Hypertension 04/09/2023 01/28/2024 Overweight (BMI 25.0-29.9) 04/09/2023 0 04/09/2024 Renal colic on right side 04/09/2023 Anorexia 03/26/2023 01/28/2024 Encounter for injection education 03/26/2023 01/28/2024 Right lower quadrant abdominal pain 03/26/2023 01/28/2024 Immunodeficiency, unspecified 03/14/2023 01/28/2024 Systemic inflammatory respon se syndrome (sirs) of non-infectious origin without acute organ dysfunction 03/14/2023 01/28/2024 Localized enlarged lymph nodes 03/05/2023 01/28/2024 Other nonspecific abnormal f inding of lung field 03/05/2023 01/28/2024 Unspecified hydronephrosis 03/05/2023 1 03/29/2023 CARLOS (acute kidney injury) 02/28/2023 Confusion 02/27/2023 01/28/2024 Altered mental status, unspecified 02/27/2023 01/28/2024 Disorientation, unspecified 02/27/2023 01/28/2024 Mixed disorder of acid-base balance 02/27/2023 01/28/2024 Other specified disorders of kidney and ureter 01/01/2023 01/28/2024 Other abnormal findings on c ytological and histological examination of urine 12/20/20222023 Ureteral mass 12/10/2022 01/28/2024 Disorder of kidney and ureter, unspecified 11/21/2022 01/28/2024 Unspecified renal colic 11/01/202201/02 Dizziness and giddiness 08/14/202201/02 Other specified symptoms and signs involving the circulatory and respiratory systems 05/15/2022 01/28/2024 Cervicalgia 09/21/2015 01/28/2024 Abnormal immunological findi ngs in specimens from other organs, systems and tissues 06/16/2014 1 03/29/2023
--- OUTSIDE RECORDS SUMMARY | 2024-08-12 13:24 | XMS_ITS | Encounter Summary ---
Author Organization [facility] Address [address] [place] [address] Care Team Providers Care Retail Pharmacy Technician Name Role Phone Efren oRy DO Unavailable [phone] Efren Roy DO Primary Care Provider [phone] Rosa Maria Beltran APRN Unavailable Bobby Vazquez MD Unavailable Cally Henderson Unavailable Encounter Details Date Type Department Care Team (Late st Contact Info) Description 07/27/2024 Orders Only [facility] [address] [place] [address] Bobby Vazquez MD [address] [address] Social History Tobacco Use Types [...] in a chcf (including now)? No 02/28/2023 PHQ-9 Answer Date [...] any time in the past 12 m [facility], were you homeless or living in a chcf (including now)? No 05/27/2024 CAGE ASSESSMENT Answer [...] drink first t tianna in the morning (EYE-OTHER WOOD PROCESSING MACHINE OPERATOR) to steady your nerves or to get rid of a hangover? 0 02/27/2023 CAGE Questionnaire Score 0 023 Utilities Answer Date Recorded In the past 12 months has e [employer], gas, oil, or water company threatened to [...] Description 08/27/2024 1:00 PM EDT Office Visit [facility] Multidisciplinary Oncology Clinic [address] [place] [address] Bobby Vazquez MD 800 [facility] Shantel Cooper [address] [address] 08/27/2024 1:00 PM EDT Clinical Support [facility] [address] [place] [address] 08/27/2024 2:30 PM EDT Appointment [facility] Infusion Clinic 2 [address] [place] [address] 10/19/2024 11:30 AM EDT Office Visit [facility] Multidisciplinary Oncology Clinic [address] [place] [address] Kym Romero, BIOLOGICAL INSPECTOR 800 [facility] Kenneth [address] [address] 11/24/2024 11:00 AM EDT Office Visit [facility] [address] [place] [address] Adal Franklin MD [address] [facility] [address] [place] [address] 12/15/2024 1:00 PM EDT Office Visit [facility] [address] [facility] [place] [address] Efren Fallon MD 110 [facility] 550 [place] [address] 12/29/2024 9:30 AM EDT Clinical Support [facility] 800 [facility], 2nd [place] [address] 12/29/2024 10:00 AM EDT Office Visit [facility] [address] [address] Carlito Mccartney MD 2195 [facility] 125 [place] [address] 03/23/2025 10:40 AM EST Office Visit [facility] 800 [facility], 2nd [place] [address] Arabella Romero, BIOLOGICAL INSPECTOR [address] [place] [address] documented as of this encounter Visit Diagnoses [...] documented as of this encounter Care Teams Retail Pharmacy Technician Relationship Specialty Start Date End Date Efren Roy DO [address] [place] [address] PCP - General 03/04/23 Efren Roy DO [address] [place], [place] [phone] Pain Medicine 01/03/23 Rosa Maria Beltran APRN [address] [facility] Saur[address] [place] [address] Nurse Practitioner Family Medicine 07/21/23 Bobby Vazquez MD 800 [facility] [address] Saurav [address] [place] [address] Consulting Physician Medical Oncology 09/17/23 Cally Henderson PA [address] [place] [address] Physician Sew Out Operator Urology 09/17/23 documented as of this encounter
--- OUTSIDE RECORDS SUMMARY | 2024-08-12 13:24 | XMS_ITS | Encounter Summary ---
Author Organization [facility] Address [address] [place] [address] Care Team Providers Care Creel Cleaner Name Role Phone Efren Roy DO Unavailable [phone] Efren Roy DO Primary Care Provider [phone] Rosa Maria Beltran APRN Unavailable [phone] Bobby Vazquez MD Unavailable Cally Henderson Unavailable [phone] Encounter Details Date Type Department Care Team (Latest Contact Info) Description 07/27/2024 Travel Social History Tobacco Use Types Packs/Day [...] in the past 12 m [facility], were you homeless or living in [...] drink first t tianna in the morning (EYE-VERIFICATION LEAD) to steady your nerves or to get [...] Date of Assessment Author No Risk Indicated 07/27/2024 7:14 PM EDT Indiana Rascon RN * Question Answer Date of Assessment Author 1. Wish to be (Past 1 Month) No 025 7:14 PM EDT Indiana Rascon, RN 2. Non-Specific Active Suici katie Thoughts (Past 1 Month) No 07/27/2024 7:14 PM EDT Shanna Rascon RN 6. Suicidal Behavior (Lifetime) No 7:14 PM EDT Indiana Rascon, RN documented as of this encounter Plan of Treatment Upcoming Encounters Date Type Department Care Team (Late st Contact Info) Description 08/27/2024 1:00 PM EDT Office Visit [facility] Multidisciplinary Oncology Clinic [address] [place] [address] Bobby Vazquez MD 800 [facility] Shantel Cooper [address] [address] 08/27/2024 1:00 PM EDT Clinical Support [facility] Multidisciplinary Oncology Clinic [address] [place] [address] 08/27/2024 2:30 PM EDT Appointment [facility] Infusion Clinic 2 [address] [place] [address] 10/19/2024 11:30 AM EDT Office Visit [facility] [address] [place] [address] Kym Romero, CLIENT LIAISON 800 [facility] Shantel [address] Saurav [address] [place] [address] 11/24/2024 11:00 AM EDT Office Visit [facility] [address] [place] [address] Adal Franklin MD [address] [place] [address] 12/15/2024 1:00 PM EDT Office Visit [facility] [address] [facility] [place] [address] Efren Fallon MD 110 [address] [facility] Saurav [address] [place] [address] 12/29/2024 9:30 AM EDT Clinical Support [facility] 800 [facility], 2nd [place] [address] 12/29/2024 10:00 AM EDT Office Visit [facility] 800 [facility] 2nd [place] [address] Carlito Mccartney MD 2195 [facility] Saur[address] [place] [address] 03/23/2025 10:40 AM EST Office Visit [facility] 800 [facility] 2nd [place] [address] Arabella Romero, CLIENT LIAISON 800 [place] [address] documented as of this encounter Visit Diagnoses [...] documented as of this encounter Care Teams Creel Cleaner Relationship Specialty Start Date End Date Efren Roy DO [address] [place], [place] [phone] PCP - General 03/04/23 Efren Roy DO [address] [place] [phone] Pain Medicine 01/03/23 Rosa Maria Beltran APRN [address] [place] [address] [address] [place] [address] Nurse Practitioner Family Medicine 07/21/23 Bobby Vazquez MD 800 [facility] [address] [place] [address] Consulting Physician Medical Oncology 09/17/23 Cally Henderson PA 740 [facility] [address] [place] [address] Physician Publication Distributor Urology 09/17/23 documented as of this encounter
--- OUTSIDE RECORDS SUMMARY | 2024-08-12 13:24 | XMS_ITS | Encounter Summary ---
Author Organization [facility] Address [address] [place] [address] Care Team Providers Care Doughnut Batter Mixer Name Role Phone Efren Roy DO Unavailable [phone] Efren Roy DO Primary Care Provider [phone] Rosa Maria Beltran APRN Unavailable Bobby Vazquez MD Unavailable Cally Henderson Unavailable [phone] Encounter Details Date Type Department Care Team (Late st Contact Info) Description 07/27/2024 Results Follow-Up [facility] A Emergency Department [address] [place] [address] Alma Garvey, PharmD [address] [place] [address] Social History Tobacco Use Types Packs/Day Years [...] in the past [address] 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 He was discharged with prescription for cefadroxil. Antibiotic may not adequately cover the organism resulted. Contacted patient to relay results and discuss therapy change. New prescription for Amoxicillin [facility] Patient expressed understanding and all questions answered. documented in this encounter Plan of Treatment Upcoming Encounters Date Type Department Care Team (Late st Contact Info) Description 08/27/2024 1:00 PM EDT Office Visit [facility] Multidisciplinary Oncology Clinic [address] [place] [address] Bobby Vazquez MD 800 [facility] Kenneth [facility] 134 [place] [address] 08/27/2024 1:00 PM EDT Clinical Support [facility] Multidisciplinary Oncology Clinic [address] [place] [address] 08/27/2024 2:30 PM EDT Appointment [facility] Infusion Clinic 2 [address] [place] [address] 10/19/2024 11:30 AM EDT Office Visit [facility] Multidisciplinary Oncology Clinic [address] [place] [address] Kym Romero, INTEGRITY ASSESSOR 800 [facility] [address] [address] 11/24/2024 11:00 AM EDT Office Visit [facility] Multidisciplinary Oncology Clinic [address] [place] [address] Adal Franklin MD [address] [facility] [address] [place] [address] 12/15/2024 1:00 PM EDT Office Visit [facility] 110 [place] [address] Efren Fallon MD 110 [facility] 550 [place] [address] 12/29/2024 9:30 AM EDT Clinical Support [facility] 800 [facility], 2nd [place] [address] 12/29/2024 10:00 AM EDT Office Visit [facility] 800 [facility], 2nd [place] [address] Carlito Mccartney MD 2195 [facility] Saur[address] 125 [place] [address] 03/23/2025 10:40 AM EST Office Visit [facility] 800 [facility], [address] [place] [address] Arabella Romero APRN [address] [place] [address] documented as of this encounter [...] documented as of this encounter Care Teams Doughnut Batter Mixer Relationship Specialty Start Date End Date Efren Roy DO [address] [place] [address] PCP - General 03/04/23 Efren Roy DO [address] [place] [address] Pain Medicine 01/03/23 Rosa Maria Beltran APRN 219 [facility] 125 [place] [address] Nurse Practitioner Family Medicine 07/21/23 Bobby Vazquez MD 800 [facility] Shant[address] Saurav [address] [place] [address] Consulting Physician Medical Oncology 09/17/23 Cally Henderson PA [address] [facility] [address] [place] [address] Physician Finish Rolls Operator Urology 09/17/23 documented as of this encounter
--- OUTSIDE RECORDS SUMMARY | 2024-08-12 13:24 | XMS_ITS | Clinical Summary ---
Author Organization [facility] Address [address] [place] [address] Phone Care Team Providers Care Pocketed Spring Assembler Name Role Phone Unavailable Primary Care Provider Unavailabl e Social History Tobacco Use Types Packs/Day Years Used Date Smoking Tobacco: Never Assessed Sex and Gender Information Value Date Recorded Sex Assigned at Not on file Legal Sex Male 12:46 PM EDT Gender Identity Not on file Sexual Orientation Not on file Plan of Treatment Health Maintenance Due Date Last Done Comments Annual Wellness Exam 02/10/1967 Hepatitis C Screening 02/10/1982 DTaP/TDaP/Td (1 - Tdap) 02/10/1983 Cologuard 02/10/2009 Colon Cancer Screening 02/10/2009 Colonoscopy 02/10/2009 FIT 02/10/2009 Sigmoidoscopy 02/10/2009 Virtual Colonography 02/10/2009 Pneumococcal Vaccine 50+ (1 of 1 - PCV) 02/10/2014 Zoster (1 of 2) 02/10/2014 COVID-19 Vaccine ( - 2023-2 5 season) 2023 Influenza Vaccine (Season Ended) 2024 02/12/2022, 11/29/2016 Hepatitis B Vaccine Aged Out No longe r eligible based on patient's age to complete this topic Meningococcal B Vaccine Aged Out No l onger eligible based on patient's age to complete this topic
--- OUTSIDE RECORDS SUMMARY | 2024-08-12 13:24 | XMS_ITS | Encounter Summary ---
Author Organization [facility] Address [address] [place] [address] Care Team Providers Care Salesperson Florist Supplies Name Role Phone Efren Roy DO Unavailable [phone] Efren Roy DO Primary Care Provider [phone] Rosa Maria Beltran APRN Unavailable [phone] Bobby Vazquez MD Unavailable Cally Henderson Unavailable [phone] Encounter Details Date Type Department Care Team (Late st Contact Info) Description 07/27/2024 Telephone [facility] [address] [place] [address] Bobby Vazquez MD [address] [address] Social History Tobacco Use Types [...] first t tianna in the morning (EYE-FOOD PROCESSING PLANT MANAGER) to steady your nerves or to get rid of a hangover? 0 02/27/2023 CAGE Questionnaire Score 0 023 Utilities Answer Date Recorded In the past 12 months has th e [employer], gas, oil, or water company threatened to [...] Telephone Encounter - Lin Breen - 07/27/2024 2:56 PM EDT Called and spoke with pts sister, let her know script was sent in to local pharmacy. Also advised her on pt trying Milk of Magnesia if needed. ER precautions given, she verbalized understanding and had no further questions. * Telephone Encounter - Lin Breen - 07/27/2024 2:26 PM EDT Called and spoke with patients sister, patient has not had a bowel movement for about 5 days now. He is taking Miralax, stool softener and suppository with no relief but did quit doing the suppositories the other day. No abdominal pain, nausea or vomiting. He is eating and drinking okay as well. She is wondering if there is something else patient can try for constipation. * Telephone Encounter - Alma Longoria - 07/27/2024 2:21 PM EDT Patient Phone Message Reason for Call: Pt sisters calling about him being constipated for about 5 days now. Can you call in anything? Best contact number and optimal time of day to reach caller: [phone] Note: Please do not reply to this message. Follow-up communication and further actions as a result of this message need to be communicated with the patient directly, if the patient is not active onMyChart. If the patient is active on MyChart, they will receive notification of the communication/outcome via [employer]. documented in this encounter Plan of Treatment Upcoming Encounters Date Type Department Care Team (Late st Contact Info) Description 08/27/2024 1:00 PM EDT Office Visit [facility] Multidisciplinary Oncology Clinic [address] [place] [address] Bobby Vazquez MD 800 [facility] Shant[address] [address] 08/27/2024 1:00 PM EDT Clinical Support [facility] Multidisciplinary Oncology Clinic [address] [place] [address] 08/27/2024 2:30 PM EDT Appointment [facility] Infusion Clinic 2 [address] [place] [address] 10/19/2024 11:30 AM EDT Office Visit [facility] Multidisciplinary Oncology Clinic [address] [place] [address] Kym Romero, MATTRESS RENOVATOR 800 [facility] Kenneth [address] [address] 11/24/2024 11:00 AM EDT Office Visit [facility] Multidisciplinary Oncology Clinic [address] [place] [address] Adal Franklin MD [address] [facility] [address] [place] [address] 12/15/2024 1:00 PM EDT Office [facility] [address] [place] [address] Efren Fallon MD [address] [facility] 550 [place] [address] 12/29/2024 9:30 AM EDT Clinical Support [facility] 800 [facility], 2nd [place] [address] 12/29/2024 10:00 AM EDT Office Visit [facility] 800 [facility], 2nd [place] [address] Carlito Mccartney MD 2195 [facility] 125 [place] [address] 03/23/2025 10:40 AM EST Office Visit [facility] 800 [facility], 2nd [place] [address] Arabella Romero, MATTRESS RENOVATOR [address] [place] [address] documented as of this encounter Visit Diagnoses [...] documented as of this encounter Care Teams Salesperson Florist Supplies Relationship Specialty Start Date End Date Efren Roy DO [address] [place] [address] PCP - General 03/04/23 Efren Roy DO [address] [place] [address] Pain Medicine 01/03/23 Rosa Maria Beltran APRN 2195 [facility] Saur[address] [place] [address] Nurse Practitioner Family Medicine 07/21/23 Bobby Vazquez MD 800 [facility] [address] Saur[address] [place] [address] Consulting Physician Medical Oncology 09/17/23 Cally Henderson PA [address] [place] [address] Physician Induction Coordination Power Engineer Urology 09/17/23 documented as of this encounter
--- OUTSIDE RECORDS SUMMARY | 2024-08-12 13:24 | XMS_ITS | Encounter Summary ---
Author Organization [facility] Address [address] [place] [address] Care Team Providers Care Wood Turning Lathe Operator Name Role Phone Efren Roy DO Unavailable [phone] Efren Roy DO Primary Care Provider [phone] Rosa Maria Beltran APRN Unavailable [phone] Bobby Vazquez MD Unavailable Cally Henderson Unavailable [phone] Encounter Details Date Type Department Care Team (Late st Contact Info) Description 07/23/2024 Telephone [facility] [address] [place] [address] Humberto Larios, PharmD Social History Tobacco Use Types Packs/Day Years [...] any time in the past 12 m [facility], were you homeless or living [...] drink first t tianna in the morning (EYE-WOMENS VOLLEYBALL COACH) to steady your nerves or to get rid of a hangover? 0 02/27/2023 CAGE Questionnaire Score 0 023 Utilities Answer Date Recorded In the past 12 months has th e [employer], gas, oil, or water [employer] threatened to shut off services in your home? No 05/27/2024 PHQ-2A Answer Date Recorded Depression Risk 0 04/30/2024 Sex and Gender Information Value Date Recorded Sex Assigned at Male 07/27/2024 6:43 PM EDT Legal Sex Male 6:40 PM EDT Gender Identity Male 07/27/2024 6:43 PM EDT Sexual Orientation Not on file documented as of this encounter Miscellaneous Notes * Telephone Encounter - Humberto Larios PharmD - 07/23/2024 9:[address] [facility] Discharge of Clinical Services Specialty Medications and their indications: [place] Reason(s) for discharge: Discontinued/ Completed Therapy Summary of care provided: Benefits investigation and Prior authorization Patient's ongoing unmet needs/care: Patient has no ongoing unmet needs. Instructions or referral information provided to the patient/responsible green party: No referral information needed- Medication was stopped Humberto Larios PharmD 07/23/2024 9:30 AM documented in this encounter Plan of Treatment Upcoming Encounters Date Type Department Care Team (Late st Contact Info) Description 08/27/2024 1:00 PM EDT Office Visit [facility] Multidisciplinary Oncology Clinic [address] [place] [address] Bobby Vazquez MD 800 [facility] Shantel Cooper [address] [address] 08/27/2024 1:00 PM EDT Clinical Support [facility] 800 [place] [address] 08/27/2024 2:30 PM EDT Appointment [facility] Infusion Clinic 2 [address] [place] [address] 10/19/2024 11:30 AM EDT Office Visit [facility] [address] [place] [address] Kym Romero R, PLASTIC SURGERY MANAGER 800 [facility] [address] Saurav [address] [place] [address] 11/24/2024 11:00 AM EDT Office Visit [facility] 800 [place] [address] Adal Franklin MD [address] [facility] [address] [place] [address] 12/15/2024 1:00 PM EDT Office Visit [facility] [address] [facility] [place] [address] Efren Fallon MD [address] [facility] 550 [place] [address] 12/29/2024 9:30 AM EDT Clinical Support [facility] 800 [facility], 2nd [place] [address] 12/29/2024 10:00 AM EDT Office Visit [facility] 800 [facility] 2nd [place] [address] Carlito Mccartney MD [address] [facility] 125 [place] [address] 03/23/2025 10:40 AM EST Office Visit [facility] 800 [facility] 2nd [place] [address] Arabella Romero, PLASTIC SURGERY MANAGER 800 [place] [address] documented as of this encounter Visit Diagnoses [...] documented as of this encounter Care Teams Wood Turning Lathe Operator Relationship Specialty Start Date End Date Efren Roy DO [address] [place] [address] PCP - General 03/04/23 Efren Roy DO [address] [place] [address] Pain Medicine 01/03/23 Rosa Maria Beltran, PLASTIC SURGERY MANAGER [address] [facility] 125 [place] [address] Nurse Practitioner Family Medicine 07/21/23 Bobby Vazquez MD 800 [facility] [address] S[address] [place] [address] Consulting Physician Medical Oncology 09/17/23 Cally Henderson PA [address] [place] [address] Physician Extension Service Agent Urology 09/17/23 documented as of this encounter
--- OUTSIDE RECORDS SUMMARY | 2024-08-12 13:24 | XMS_ITS | Encounter Summary ---
Author Organization [facility] Address [address] [place] [address] Care Team Providers Care Six Sigma Black Trainer Name Role Phone Efren Roy DO Unavailable [phone] Efren Roy DO Primary Care Provider [phone] Rosa Maria Beltran APRN Unavailable [phone] Bobby Vazquez MD Unavailable Cally Henderson Unavailable [phone] Encounter Details Date Type Department Care Team (Latest Contact Info) Description 07/23/2024 Travel Social History Tobacco Use Types Packs/Day [...] drink first t tianna in the morning (EYE-CONTROL OFFICER) to steady your nerves or to get [...] Arreola RN documented as of this encounter Plan of Treatment Upcoming Encounters Date Type Department Care Team (Late st Contact Info) Description 08/27/2024 1:00 PM EDT Office Visit [facility] Multidisciplinary Oncology Clinic [address] [place] [address] Bobby Vazquez MD 800 [facility] Shantel Cooper [address] [address] 08/27/2024 1:00 PM EDT Clinical Support [facility] Multidisciplinary Oncology Clinic [address] [place] [address] 08/27/2024 2:30 PM EDT Appointment [facility] Infusion Clinic 2 [address] [place] [address] 10/19/2024 11:30 AM EDT Office Visit [facility] [address] [place] [address] Kym Romero, SENIOR ENERGY TRADER 800 [facility] Shantel Cooper [address] [place] [address] 11/24/2024 11:00 AM EDT Office Visit [facility] [address] [place] [address] Adal Franklin MD [address] [place] [address] 12/15/2024 1:00 PM EDT Office Visit [facility] [address] [facility] [place] [address] Efren Fallon MD [address] [facility] [address] [place] [address] 12/29/2024 9:30 AM EDT Clinical Support [facility] [address] [facility], [address] [place] [address] 12/29/2024 10:00 AM EDT Office Visit [facility] [address] [facility], [address] [place] [address] Carlito Mccartney MD 2[address] [facility] [address] [place] [address] 03/23/2025 10:40 AM EST Office Visit [facility] 800 [facility] [address] [place] [address] Arabella Romero, SENIOR ENERGY TRADER [address] [place] [address] documented as of this encounter Visit Diagnoses [...] documented as of this encounter Care Teams Six Sigma Black Trainer Relationship Specialty Start Date End Date Efren Roy DO [address] [place], [place] [id number] PCP - General 03/04/23 Efren Roy DO [address] [place] [id number] Pain Medicine 01/03/23 Rosa Maria Beltran APRN [address] [place] [address] [address] [place] [address] Nurse Practitioner Family Medicine 07/21/23 Bobby Vazquez MD 800 [facility] [address] [place] [address] Consulting Physician Medical Oncology 09/17/23 Cally Henderson PA [address] [facility] [address] [place] [address] Physician Distribution Operations Supervisor Urology 09/17/23 documented as of this encounter
--- OUTSIDE RECORDS SUMMARY | 2024-08-12 13:25 | XMS_ITS | Encounter Summary ---
Author Organization [facility] Address [address] [place] [address] Care Team Providers Care Stock Lifter Name Role Phone Pastor Michel MD Primary Care Provider + [phone] Pastor Michel MD Primary Care Provider + [phone] Efren Roy DO Unavailable [phone] Efren Roy DO Primary Care Provider [phone] Rosa Maria Beltran APRN Unavailable [phone] Bobby Vazquez MD Unavailable Cally Henderson Unavailable [phone] Encounter Details Date Type Department Care Team (Late st Contact Info) Description 11/01/2022 Orders Only External Location [address] [place] [address] Provider, External Social History Tobacco Use Types Packs/Day Years Used Date Smoking Tobacco: Former Alcohol Use Standard Drinks/Week Comments Not Currently 0 (1 standard drink = 0.6 oz pure alcohol) Alcoholic Drinks/day: History of alcohol use Sex and Gender Information Value Date Recorded [...] Office Visit [facility] [address] [place] [address] Bobby Vazquez MD 800 [facility] Kenneth [facility] [address] [place] [address] 08/27/2024 1:00 PM EDT Clinical Support [facility] [address] [place] [address] 08/27/2024 2:30 PM EDT Appointment [facility] Infusion [facility] 2 [address] [place] [address] 10/19/2024 11:30 AM EDT Office Visit [facility] [address] [place] [address] Kym Romero, PRESS TENDER INCENDIARY GRENADE 800 [facility] [address] [place] [address] 11/24/2024 11:00 AM EDT Office Visit [facility] [address] [place] [address] Adal Franklin MD [address] [place] [address] 12/15/2024 1:00 PM EDT Office Visit [facility] [address] [place] [address] Efren Fallon MD 110 [facility] [address] [place] [address] 12/29/2024 9:30 AM EDT Clinical Support [facility] 800 [facility], [address]nd [place] [address] 12/29/2024 10:00 AM EDT Office Visit [facility] 800 [facility], [address] [place] [address] Carlito Mccartney MD [address] [place] [address] 03/23/2025 10:40 AM EST Office Visit [facility] [address] , [address] [place] [address] Arabella Romero, PRESS TENDER INCENDIARY GRENADE [address] [place] [address] documented as of this encounter Procedures Procedure Name Priority Date/Time Associated Diagnosis Comments CT OUTSIDE IMAGES 11/01/2022 10:21 AM EDT documented in this encounter Results * CT OUTSIDE IMAGES (11/01/2022 10:21 AM EDT) Anatomical Region Laterality Modality Computed Tomogra phy 11/01/2022 10:2 1 AM EDT External Provider IMG CT PROCEDURES Final Result documented in this encounter Visit Diagnoses Not on filedocumented in this encounter Additional Health Concerns Infection Onset Date Last Indicated Resolved Time COVID-19 Rule-Out 03/14/2023 03/14/2023 03/14/2023 3:07 PM EST COVID-19 Rule-Out 12/29/2023 12/29/2023 12/29/2023 1:16 PM EDT COVID-19 Rule-Out 05/24/2024 05/24/2024 05/24/2024 8:55 PM EDT Respiratory Rule-Out 05/24/2024 05/24/2024 025 1:33 AM EDT documented as of this encounter Care Teams Stock Lifter Relationship Specialty Start Date End Date Pastor Michel MD [address] [place] [address] PCP - General 07/14/20 01/02/23 Pastor Michel MD [address] [place] [address] PCP - General 01/03/23 03/03/23 Efren Roy DO [address] [place] [address] PCP - General 03/04/23 Efren Roy DO [address] [place] [address] Pain Medicine 01/03/23 Rosa Maria Beltran APRN [address] [facility] [address] [place] [address] Nurse Practitioner Family Medicine 07/21/23 Bobby Vazquez MD 800 [facility] [address] [place] [address] Consulting Physician Medical Oncology 09/17/23 Cally Henderson PA [address] [facility] [address] [place] [address] Physician Industrial Green Systems Designer Urology 09/17/23 documented as of this encounter
--- OUTSIDE RECORDS SUMMARY | 2024-08-12 13:25 | XMS_ITS | Encounter Summary ---
Author Organization [facility] Address [address] [place] [address] Care Team Providers Care Educational Fundraising Director Name Role Phone Pastor Michel MD Primary Care Provider + [phone] Pastor Michel MD Primary Care Provider + [phone] Efren Roy DO Unavailable [phone] Efren Roy DO Primary Care Provider [phone] Rosa Maria Beltran TRANSPLANTER Unavailable [phone] Bobby Vazquez MD Unavailable Cally Henderson Unavailable [phone] Encounter Details Date Type Department Care Team (Late st Contact Info) Description 12/29/2021 Orders Only External Location [address] [place] [address] Pastor Michel MD [address] [place] [address] Social History Tobacco Use Types Packs/Day Years [...] Office Visit [facility] [address] [place] [address] Bobby Vazquez MD 800 [facility] Kenneth [facility] [address] [place] [address] 08/27/2024 1:00 PM EDT Clinical Support [facility] [address] [place] [address] 08/27/2024 2:30 PM EDT Appointment [facility] 2 [address] [place] [address] 10/19/2024 11:30 AM EDT Office Visit [facility] [address] [place] [address] Kym Romero, TRANSPLANTER 800 [facility] [address] [place] [address] 11/24/2024 11:00 AM EDT Office Visit [facility] Multidisciplinary Oncology Clinic [address] [place] [address] Adal Franklin MD [address] [place] [address] 12/15/2024 1:00 PM EDT Office Visit [facility] [address] [place] [address] Efren Fallon MD 110 [facility] [address] [place] [address] 12/29/2024 9:30 AM EDT Clinical Support [facility] 800 [facility], 2nd [place] [address] 12/29/2024 10:00 AM EDT Office Visit [facility] 800 [facility], [address]nd [place] [address] Carlito Mccartney MD [address] [facility] [address] [place] [address] 03/23/2025 10:40 AM EST Office Visit [facility] 800 [facility], [address]nd [place] [address] Arabella Romero, TRANSPLANTER [address] [place] [address] documented as of this encounter Procedures Procedure Name Priority Date/Time Associated Diagnosis Comments CT OUTSIDE IMAGES 12/29/2021 4:24 PM EDT documented in this encounter Results * CT OUTSIDE IMAGES (12/29/2021 4:24 PM EDT) Anatomical Region Laterality Modality Computed Tomogra phy 12/29/2021 4:24 PM EDT Pastor Michel MD IMG CT PROCEDURES Final Resu lt documented in this encounter Visit Diagnoses Not on filedocumented in this encounter Additional Health Concerns Infection Onset Date Last Indicated Resolved Time COVID-19 Rule-Out 03/14/2023 03/14/2023 03/14/2023 3:07 PM EST COVID-19 Rule-Out 12/29/2023 12/29/2023 12/29/2023 1:16 PM EDT COVID-19 Rule-Out 05/24/2024 05/24/2024 05/24/2024 8:55 PM EDT Respiratory Rule-Out 05/24/2024 05/24/2024 025 1:33 AM EDT documented as of this encounter Care Teams Educational Fundraising Director Relationship Specialty Start Date End Date Pastor Michel MD [address] [place] [address] PCP - General 07/14/20 01/02/23 Pastor Michel MD [address] [place] [address] PCP - General 01/03/23 03/03/23 Efren Roy DO [address] [place] [address] PCP - General 03/04/23 Efren Roy DO [address] [place] [address] [phone] Pain Medicine 01/03/23 Rosa Maria Beltran APRN [address] [place] [address] [address] [place] [address] Nurse Practitioner Family Medicine 07/21/23 Bobby Vazquez MD 800 [facility] [address] [place] [address] Consulting Physician Medical Oncology 09/17/23 Cally Henderson PA [address] [facility] [address] [place] [address] Physician Doctor Of Naprapathy Urology 09/17/23 documented as of this encounter
--- OUTSIDE RECORDS SUMMARY | 2024-08-12 13:25 | XMS_ITS | Clinical Summary ---
Author Organization [facility] Address [address] [place] [address] Care Team Providers Care Lehr Operator Name Role Phone Efren Roy DO Unavailable [phone] Efren Roy DO Primary Care Provider Rosa Maria Beltran APRN Unavailable [phone] Bobby Vazquez MD Unavailable Cally Henderson Unavailable [phone] Allergies Active Allergy Reactions Criticality Noted Date Comments Enfortumab Vedotin Other - please docum ent in the comment field Low 03/26/2023 Back pain Medications pantoprazole (Protonix) 40 MG EC tablet Take 1 tablet by mouth daily. Active polyethylene glycol (Miralax) 17 GM/SCOOP powder Take 17 g by mouth daily. Active oxyCODONE (Roxicodone) 10 MG immediate release tablet Take 1 tablet by mouth 4 (four) times a day as needed. Active tamsulosin (Flomax) 0.4 MG 24 hr capsule TAKE 1 CAPSULE BY MOUTH ONCE A DAY WITH DINNER 30 capsule 02/18/20 Active tiZANidine (Zanaflex) 2 MG tablet Take 1 tablet by mouth 3 (three) times a day as needed for muscle spasms. Active morphine CR (MS Contin) 15 MG 12 hr tablet TAKE 1 TABLET 2 TIMES EACH DAY DO NOT CRUSH, CHEW OR SPLIT. 60 tablet 05/05/19 24 Active senna-docusate sodium (Senokot-S) 8.6-50 MG tablet Take 1 tablet by mouth 1 (one) time each day. 30 tablet 3 05/28/19 24 Active Additional Information Patient not taking.Reported on 08/06/2024 fluticasone (Flonase) 50 MCG/ACT nasal spray Administer 1 spray into each nostril 1 (one) time each day. Shake gently. Before first use, prime pump. After use, clean tip and replace cap. 16 g 12 08/20/19 24 Active loperamide (Imodium A-D) 2 MG tabletIndications: Dehydration,Malign ant tumor of right ureter (CMS/HCC) 2 mg by mouth every 2 hours as needed for diarrhea; Not to exceed 16 mg in 24 hours 30 tablet 5 11/28/19 24 Active mupirocin (Bactroban) 2 % ointment Put muprocin in bilateral nares twice daily for 7 days 1 g 12/26/19 24 Active ondansetron ODT (Zofran-ODT) 4 MG disintegrating tablet Take 2 tablets (8 mg) by mouth every 8 (eight) hours. Alternate with compazine 60 tablet 3 01/21/20 24 Active gabapentin (Neurontin) 800 MG tablet Take 1 tablet by mouth 3 (three) times a day. Active magic mouthwash BLM (FIRST-Mouthwash) suspensionIndicati ons:Malignant tumor of right ureter (CMS/HCC) Use 15 mL in the mouth or throat 4 (four) times a day as needed for mucositis (swish and swallow prn for mouth sores). 237 mL 3 04/30/19 25 Active montelukast (Singulair) 10 MG tablet Take 1 tablet by mouth nightly. 30 tablet 05/28/19 25 Active erdafitinib (Balversa) 4 MG tablet Take 2 tablets (8 mg total) by mouth daily. Take with or without food. Do not crush, chew, or dissolve. Swallow tablet(s) whole. 60 tablet 2 06/02/19 25 025 Active Nutritional Supplements (nepro/carb steady) Take 237 mL by mouth 2 (two) times a day. 94855 mL 5 06/17/19 25 025 Active dexamethasone (Decadron) 4 MG tabletIndications: Malignant tumor of right ureter (CMS/HCC) Take 2 tablets by mouth 2 times a day. Start day prior to docetaxel and continue for a total of 3 days. 72 tablet 07/15/19 25 Active dronabinol (Marinol) 5 MG capsule Take 1 capsule by mouth 2 times a day before meals. 60 capsule 07/15/19 25 Active hydrOXYzine pamoate (Vistaril) 25 MG capsule Take 1 capsule by mouth 3 times a day as needed for anxiety. 30 capsule 07/30/19 25 Active Tirosint 125 MCG capsule Take 1 capsule by mouth daily before breakfast. 90 capsule 1 08/03/19 25 Active prochlorperazine (Compazine) 10 MG tabletIndications: Dehydration,Malign ant tumor of right ureter (CMS/HCC) Take 1 tablet by mouth every 6 hours as needed for nausea or vomiting. 30 tablet 5 08/07/19 25 Active OLANZapine (ZyPREXA) 5 MG tablet Take 1 tablet by mouth nightly. Please send to infusion chair WH1 30 tablet 2 08/07/19 25 025 Active lactulose (Chronulac) 10 GM/15ML oral solution Take 15 mL by mouth 2 times a day as needed (For constipation. Hold for diarrhea). 946 mL 1 08/07/19 25 025 Active OLANZapine (ZyPREXA) 10 MG tablet Take 1 tablet by mouth nightly. 025 Discontinu ed(Per Patient Report) oxybutynin XL (Ditropan-XL) 10 MG 24 hr tablet Take 1 tablet (10 mg) by mouth 1 (one) time each day. Do not crush, chew, or split. 30 tablet 11 07/30/19 24 025 Discontinu ed(Stop Taking at Discharge) prochlorperazine (Compazine) 10 MG tabletIndications: Dehydration,Malign ant tumor of right ureter (CMS/HCC) Take 1 tablet (10 mg) by mouth every 6 (six) hours if needed for nausea or vomiting. 30 tablet 5 11/28/19 24 025 Discontinu ed(Reorder ) hydrOXYzine pamoate (Vistaril) 25 MG capsule Take 1 capsule (25 mg) by mouth 3 (three) times a day if needed for anxiety. 30 capsule 02/27/20 24 025 Discontinu ed(Reorder ) Tirosint 125 MCG capsule Take 1 capsule by mouth daily before breakfast. 90 capsule 06/19/19 25 025 Discontinu ed(Reorder ) dronabinol (Marinol) 5 MG capsule Take 1 capsule by mouth 2 times a day before meals. 60 capsule 07/14/19 25 025 Discontinu ed(Reorder ) cefadroxil (Duricef) 500 MG capsuleIndications :Acute cystitis without hematuria Take 2 capsules by mouth 2 times a day for 10 days. 40 capsule 07/25/19 25 025 Discontinu ed(Per Patient Report) amoxicillin (Amoxil) 500 MG capsuleIndications :Acute cystitis without hematuria Take 1 capsule by mouth 3 times a day for 10 days. 30 capsule 07/28/19 25 025 Discontinu ed(Per Patient Report) lactulose (Kristalose) 10 g packet Take 1 packet by mouth 3 times a day. 90 packet 1 07/28/19 25 025 Discontinu ed(Reorder ) lactulose (Kristalose) 10 g packetIndications: Malignant neoplasm of urinary bladder, unspecified site (CMS/HCC) Take 1 packet by mouth 3 times a day. 90 packet 07/28/19 25 025 Discontinu ed(Reorder ) phenazopyridine (Pyridium) 200 MG tablet Take 1 tablet by mouth 3 times a day as needed for pain, discomfort or irritation for up to 3 days. 10 tablet 07/29/19 25 025 lactulose (Kristalose) 10 g packetIndications: Malignant neoplasm of urinary bladder, unspecified site (CMS/HCC) Take 1 packet by mouth 3 times a day. 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); Malignant neoplasm of urinary bladder, unspecified site (CMS/HCC); Dysuria Discharge Disposition: Home or Self Care 08/06/2024 11:30 AM EDT Clinical Support [facility] [address] [place] [address] 08/06/2024 11:30 AM EDT Office Visit [facility] Clinic [address] [place] [phone] Sara Tesfaye APRN Malignant neoplasm of urinary bladder, unspecified site (CMS/HCC) (Primary Dx); Dysuria; Dehydration; Malignant tumor of right ureter (CMS/HCC) 08/06/2024 Travel 08/02/2024 10:00 AM EDT Office Visit [facility] [address] [phone] Carlito Mccarteny MD Post-surgical hypothyroidism (Primary Dx); H/O malignant neoplasm of thyroid; Sinus tachycardia; Fatigue, unspecified type 08/02/2024 9:30 AM EDT Clinical Support [facility] [address] [phone] Post-surgical hypothyroidism 08/02/2024 Results Follow-Up [facility] [address] [phone] Carlito Mccartney MD 08/02/2024 Travel 07/29/2024 Refill [facility] [address] [address] Bobby Vazquez MD 07/28/2024 12:54 PM EDT Anesthesia Event [facility] [address] [address] Juvenal Royal MD Rock, Holly R, PA 07/28/2024 9:45 AM EDT - 07/28/2024 11:05 AM EDT Surgery [facility] [address] [address] Gloria Velasquez MD CYSTOSCOPY, WITH URETERAL STENT INSERTION [[id number] (CPT )] 07/28/2024 Travel 07/27/2024 6:26 PM EDT - 07/28/2024 3:44 PM EDT Hospital Encounter [facility] [address] [address] Jin Clark MD Micciche, MD Noemi Savage Patrick J, MD Hydronephrosis with renal and ureteral calculus obstruction (Primary Dx); Hydronephrosis, unspecified hydronephrosis type Discharge Disposition: Home or Self Care 07/27/2024 Travel 07/27/2024 Telephone [facility] [address] [place] [address] Bobby Vazquez MD 07/27/2024 Orders Only [facility] [address] [place] [address] Bobby Vazquez MD 07/27/2024 Telephone [facility] [address] [place] [address] Bobby Vazquez MD 07/27/2024 Results Follow-Up [facility] [address] [place] [address] Alma Garvey, PharmD 07/27/2024 Telephone [facility] [address] [place] [address] Bobby Vazquez MD 07/23/2024 11:29 AM EDT - 07/24/2024 9:27 AM EDT Hospital Encounter [facility] [address] [place] [phone] Holli Ledezma MD Trott, Terren R, MD Carter, Craig T, DO Wells, Kimberly J, MD Acute cystitis without hematuria (Primary Dx); Nausea and vomiting, unspecified vomiting type; Hyponatremia; Malignant neoplasm of urinary bladder, unspecified site (CMS/HCC) Discharge Disposition: Home or Self Care 07/23/2024 Travel 07/23/2024 Telephone [facility] [address] [place] [phone] Humberto Larios, PharmD 07/22/2024 Travel 07/19/2024 Telephone [facility] [address] [place] [address] Rosa Maria Eckert MD 07/15/2024 Orders Only [facility] [address] [place] [phone] Bobby Vazquez MD 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 [place] [address] Malignant tumor of right ureter (CMS/HCC) Discharge Disposition: Home or Self Care 07/14/2024 Travel 07/13/2024 Travel 07/13/2024 Refill [facility] [address] [place] [address] Bobby Vazquez MD 07/06/2024 Telephone [facility] [address] [place] [address] Tarsha Rider Distress Screen Follow-up 06/23/2024 Telephone [facility] [address] [place] [phone] Radha Ramos 06/16/2024 11:00 AM EDT Clinical Support [facility] [address] [facility] [address] [place] [address] Dehydration (Primary Dx); Malignant neoplasm of urinary bladder, unspecified site (CMS/HCC) 06/16/2024 10:30 AM EDT Office Visit [facility] [address] [place] [phone] Sara Tesfaye APRN 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) 06/16/2024 10:00 AM EDT Clinical Support [facility] [address] [place] [phone] Malignant tumor of right ureter (CMS/HCC) 06/16/2024 Telephone [facility] [address] [place] [phone] Bobby Vazquez MD 06/16/2024 Travel 06/15/2024 Clinical Support [facility] [address] [place] [phone] Rocky Martinez, PharmD Malignant neoplasm of urinary bladder, unspecified site (CMS/HCC) (Primary Dx) 06/14/2024 1:00 PM EDT Clinical Support [facility] [address] [facility] [address] [place] [address] Dehydration (Primary Dx) 06/14/2024 Travel 06/13/2024 Travel 06/11/2024 10:00 AM EDT Office Visit [facility] [address] [place] [phone] Kym Romero APRN 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) 06/11/2024 9:30 AM EDT Clinical Support [facility] [address] [place] [address] Malignant tumor of right ureter (CMS/HCC) 06/11/2024 Nutrition [facility] [address] [place] [address] Richard Radha Gauthier 06/11/2024 Travel 06/10/2024 Travel 06/02/2024 Telephone [facility] [address] [place] [phone] Madisyn Gaspar, PharmD 05/31/2024 Refill [facility] [address] [place] [address] Bobby Vazquez MD 05/25/2024 Travel 05/24/2024 6:29 PM EDT - 05/27/2024 2:16 PM EDT Hospital Encounter [facility] Inpatient [address] [place] [address] Lincoln Arnold MD Prabhu, MD Emmett Randolph Gareth J, MD Kirk, Rosendo Hauser MD Pneumonia of right lower lobe due to infectious organism (Primary Dx); Weakness Discharge Disposition: Home or Self Care 05/24/2024 Travel 05/24/2024 Telephone [facility] [address] [place] [address] Sara Tesfaye APRN 05/19/2024 11:30 AM EDT Office Visit [facility] [address] [place] [address] Kym Romero, NUCLEAR MONITORING TECHNICIAN 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) 05/19/2024 11:00 AM EDT Clinical Support [facility] [address] [place] [address] Malignant tumor of right ureter (CMS/HCC) 05/19/2024 Travel 05/14/2024 Travel from Last 3 Months Immunizations Immunization Administration Dates Next Due Influenza, injectable, quadrivalent 11/29/2016 Influenza, injectable, quadrivalent, preservativ e free 02/12/2022 Influenza, seasonal, injectable 11/29/2016 Family History Medical History Relation Name Comments Colon cancer Brother Cardiac disorder Father Elaine Goode Hypertension Father Elaine Goode Other cancer Mother Other cancer Sister 1 Hepatitis Sister 2 Anesthesia problems Neg Hx Malig Hyperthermia Neg Hx Pseudochol deficiency Neg Hx Relation Name Status Comments Brother Father Elaine Goode Mother Sister 1 Sister 2 Social History Tobacco Use Types Packs/Day Years [...] drink first t tianna in the morning (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 0 02/27/2023 CAGE Questionnaire Score 0 023 Utilities Answer Date Recorded In the past 12 months has th e [employer], gas, oil, or water company threatened to shut off services in your home? No 05/27/2024 PHQ-2A Answer Date Recorded Depression Risk 0 04/30/2024 Sex and Gender Information Value Date Recorded Sex Assigned at Male 07/27/2024 6:43 PM EDT Legal Sex Male 6:40 PM EDT Gender Identity Male 07/27/2024 6:43 PM EDT Sexual Orientation Not on file Last Filed Vital Signs Vital Sign Reading [...] Mass Index 24.14 08/06/2024 12:32 PM EDT Plan of Treatment Upcoming Encounters Date Type Department Care Team (Late st Contact Info) Description 08/27/2024 1:00 PM EDT Office Visit [facility] [address] [place] [phone] Bobby Vazquez MD 800 [facility] [address] [place] [address] 08/27/2024 1:00 PM EDT Clinical Support [facility] [address] [place] [phone] 08/27/2024 2:30 PM EDT Appointment [facility] Infusion Clinic [address] [place] [phone] 10/19/2024 11:30 AM EDT Office Visit [facility] [address] [place] [phone] Kym Romero, JYOTSNA 800 [facility] [address] [place] [phone] 11/24/2024 11:00 AM EDT Office Visit [facility] [address] [place] [phone] Adal Franklin MD [address] [facility] [address] [place] [phone] 12/15/2024 1:00 PM EDT Office Visit [facility] [address] [place] [address] Efren Fallon MD [address] [place] [address] 12/29/2024 9:30 AM EDT Clinical Support [facility] [address] [facility], [address]nd [place] [phone] 12/29/2024 10:00 AM EDT Office Visit [facility] [address] [facility], [address]nd [place] [address] Carlito Mccartney MD [address] [place] [address] 03/23/2025 10:40 AM EST Office Visit [facility] [address] [facility], [address] [place] [address] Arabella Romero, NUCLEAR MONITORING TECHNICIAN [address] [place] [address] Health Maintenance Due Date Last Done Comments [facility]-Infant/Child/Adol SDOH Screenings 1965 [id number] Vaccine (#1) 02/10/1969 [facility]-Pneumococcal Vaccine: 50 + Years (1 of 2 - PCV) 02/10/1983 [facility]-Zoster Vaccines (1 of 2) 02/10/1983 CT Colonography 02/10/2009 Colonoscopy 02/10/2009 FIT-DNA 02/10/2009 FIT 02/10/2009 FOBT 02/10/2009 Sigmoidoscopy 02/10/2009 [facility]-Colorectal Cancer Screening 02/10/2009 [facility]-RSV Vaccine: 60+ Years o r (1 - Risk 60-74 years 1-dose series) 2024 [facility]-Influenza Vaccine (Seaso n Ended) 2024 02/12/2022, 11/29/2016, 11/29/2016 [facility]- SDOH Screenings 11/27/2024 [facility]-Adult SDOH Screenings 11/27/2024 05/27/2024 [facility]-Depression Screening 08/06/2025 025, 07/14/2024, 04/30/2024 [facility]-DTaP,Tdap,and Td Vaccine s (2 - Td or Tdap) 04/21/2033 04/21/2023 [facility]-HIV Screening Completed 05/24/2024, 02/27/2023, 06/16/2014 [facility]-Hepatitis C Screening Completed 2024, 02/27/2023, 02/27/2023 HPV Vaccines Aged Out No longer eligi ble based on patient's age to complete this topic [facility]-HIB Vaccines Aged Out No longer e ligible based on patient's age to complete this topic [facility]-Hepatitis A Vaccines Aged Out No longer eligible based on patient's age to complete this topic [facility]-IPV Vaccines Aged Out No longer e ligible based on patient's age to complete this topic [facility]-Rotavirus Vaccines Aged Out No lo nger eligible based on patient's age to complete this topic Medical Devices Implanted Type Area Vegetable Worker Device Identifier Shelf Expiration Date Model / Serial / Lot Stent Ureteral Double Pigtail Pos 6fr 26cm - [id number] - [id number] Implanted:Qty: 1 on 02/20/2024 by Adal Franklin MD at [facility] [id number] 11/30/2025 [id number] / [id number] / [id number] Stent Ureteral [employer] Monofilament 7f/26cm - [id number] Implanted:Qty: 1 on 07/28/2024 by Gloria Velasquez MD at [facility] Stent Right: Ureter [employer]-[id number] 02/07/2027 [id number] / / [id number] Stent Ureteral Double Pigtail Pos 6fr 26cm - [id number] Implanted:Qty: 1 on 12/20/2022 by Sunday Lopez MD at [facility] Right: Ureter [employer]-[id number] 07/14/2024 [id number] / / [id number] [employer] 8fr - [id number] Implanted:Qty: 1 on 01/30/2023 by Lincoln Patel MD at [facility] [employer]-[id number] / / Stent Ureteral Double Pigtail Pos 6fr 26cm - [id number] - [id number] Implanted:Qty: 1 on 05/02/2023 by Adal Franklin MD at [facility] Right: Ureter [employer]-[id number] 12/08/2024 [id number] / NA / [id number] Stent Ureteral Double Pigtail Pos 6fr 26cm - [id number] Implanted:Qty: 1 on 11/07/2023 by Adal Franklin MD at [facility] Right: Ureter [employer]-[id number] 08/20/2025 [id number] / / [id number] Procedures Procedure Name Priority Date/Time Associated Diagnosis Comments COMPREHENSIVE METABOLIC PANEL, PLASMA Routine 08/06/2024 12:16 PM EDT Malignant neoplasm of urinary bladder, unspecified site (CMS/HCC) CBC WITH AUTO DIFFERENTIAL Routine 08/06/2024 11:26 AM EDT Malignant neoplasm of urinary bladder, unspecified site (CMS/HCC) FREE T4, PLASMA Routine 08/02/2024 9:30 AM EDT Post-surgical hypothyroidism TSH Routine 08/02/2024 9:30 AM EDT Post-surgical hypothyroidism FL LESS THAN 1 HOUR (NON-REPORTABLE) Routine 07/28/2024 1:42 PM EDT URINE CULTURE Routine 07/28/2024 1:32 PM EDT Hydronephrosis with renal and ureteral calculus obstruction PB ANESTHESIA PLACEHOLDER Routine 07/28/2024 1:02 PM EDT TN AN ELECTIVE ENDOTRACHEAL AIRWAY Routine 07/28/2024 1:02 PM EDT TN CYSTOSCOPY,INSERT URETERAL STENT 07/28/2024 12:39 PM EDT Hydronephrosis with renal and ureteral calculus obstruction CT ABDOMEN PELVIS W IV CONTRAST STAT 07/27/2024 9:11 PM EDT URINALYSIS MICROSCOPIC FOR UA REFLEX STAT 07/27/2024 7:51 PM EDT URINE HEATON PANEL STAT 07/27/2024 7:51 PM EDT URINALYSIS WITH REFLEX MICROSCOPIC STAT 07/27/2024 7:51 PM EDT URINALYSIS WITH REFLEX MICROSCOPIC AND CULTURE STAT 07/27/2024 7:51 PM EDT PROCALCITONIN, PLASMA STAT 07/27/2024 6:50 PM EDT LACTATE, VENOUS STAT 07/27/2024 6:50 PM EDT LIPASE, PLASMA STAT 07/27/2024 6:50 PM EDT COMPREHENSIVE METABOLIC PANEL, PLASMA STAT 07/27/2024 6:50 PM EDT CBC WITH AUTO DIFFERENTIAL STAT 07/27/2024 6:50 PM EDT CBC WITH AUTO DIFFERENTIAL STAT 07/24/2024 4:06 AM EDT MAGNESIUM, PLASMA STAT 07/24/2024 4:0 6 AM EDT PHOSPHORUS, PLASMA STAT 07/24/2024 4: 06 AM EDT COMPREHENSIVE METABOLIC PANEL, PLASMA STAT 07/24/2024 4:06 AM EDT CREATININE, RANDOM URINE STAT 07/23/2024 10:59 PM EDT SODIUM, URINE, RANDOM STAT 07/23/2024 10:59 PM EDT URINE CULTURE STAT 07/23/2024 3:[address] ABDOMEN PELVIS W IV CONTRAST STAT 07/23/2024 1:50 PM EDT URINALYSIS MICROSCOPIC FOR UA REFLEX STAT 07/23/2024 1:38 PM EDT URINALYSIS WITH REFLEX MICROSCOPIC STAT 07/23/2024 1:38 PM EDT MAGNESIUM, PLASMA STAT Add-on 07/23/2024 11:55 AM EDT LACTATE, VENOUS STAT 07/23/2024 11:55 AM EDT PHOSPHORUS, PLASMA STAT 07/23/2024 11:55 AM EDT CBC WITH AUTO DIFFERENTIAL STAT 07/23/2024 11:55 AM EDT COMPREHENSIVE METABOLIC PANEL, PLASMA STAT 07/23/2024 11:55 AM EDT COMPREHENSIVE METABOLIC PANEL, PLASMA Routine 07/14/2024 10:09 AM EDT Malignant tumor of right ureter (CMS/HCC) CBC WITH AUTO DIFFERENTIAL Routine 07/14/2024 10:09 AM EDT Malignant tumor of right ureter (CMS/HCC) CT ABDOMEN PELVIS W IV CONTRAST Routine 07/14/2024 9:15 AM EDT Malignant tumor of right ureter (CMS/HCC) CT CHEST W IV CONTRAST Routine 9:15 AM EDT Malignant tumor of right ureter (CMS/HCC) FREE T4, PLASMA Routine 06/16/2024 9:54 AM EDT Malignant tumor of right ureter (CMS/HCC) MAGNESIUM, PLASMA Routine 06/16/2024 9:5 4 AM EDT Malignant tumor of right ureter (CMS/HCC) PHOSPHORUS, PLASMA Routine 06/16/2024 9: 54 AM EDT Malignant tumor of right ureter (CMS/HCC) CBC WITH AUTO DIFFERENTIAL Routine 06/16/2024 9:54 AM EDT Malignant tumor of right ureter (CMS/HCC) COMPREHENSIVE METABOLIC PANEL, PLASMA Routine 06/16/2024 9:54 AM EDT Malignant tumor of right ureter (CMS/HCC) TSH REFLEX FT4 Routine 06/16/2024 9:54 AM EDT Malignant tumor of right ureter (CMS/HCC) PHOSPHORUS, PLASMA Add-On 06/11/2024 9: 13 AM EDT Malignant tumor of right ureter (CMS/HCC) CBC WITH AUTO DIFFERENTIAL Routine 06/11/2024 9:13 AM EDT Malignant tumor of right ureter (CMS/HCC) COMPREHENSIVE METABOLIC PANEL, PLASMA Routine 06/11/2024 9:13 AM EDT Malignant tumor of right ureter (CMS/HCC) PHOSPHORUS, PLASMA Routine 05/27/2024 5: 03 AM EDT MAGNESIUM, PLASMA Routine 05/27/2024 5:0 3 AM EDT BASIC METABOLIC PANEL, PLASMA Routine 05/27/2024 5:03 AM EDT PHOSPHORUS, PLASMA Routine 05/26/2024 4: 38 AM EDT MAGNESIUM, PLASMA Routine 05/26/2024 4:3 8 AM EDT CBC WITH AUTO DIFFERENTIAL Routine 05/26/2024 4:38 AM EDT BASIC METABOLIC PANEL, PLASMA Routine 05/26/2024 4:38 AM EDT METHICILLIN RESISTANT STAPHYLOCOCCUS AUREUS (MRSA) BY PCR Routine 05/25/2024 9:30 AM EDT RENAL FUNCTION PANEL, PLASMA Routine 05/25/2024 4:28 AM EDT PROTHROMBIN TIME(PT) / INR Routine 05/25/2024 4:28 AM EDT CBC W/O DIFFERENTIAL Routine 05/25/2024 4:28 AM EDT BLOOD CULTURE (AEROBIC/ANAEROBIC SET) Routine 05/25/2024 4:28 AM EDT STREPTOCOCCUS PNEUMONIAE AND LEGIONELLA URINARY ANTIGEN STAT 05/25/2024 12:40 AM EDT TROPONIN T, HIGH SENSITIVITY, 2 HOUR, PLASMA Timed 05/24/2024 9:[address] ANGIO PULMONARY EMBOLISM STAT 05/24/2024 9:[address] HEAD WO IV CONTRAST STAT 9:27 PM EDT URINALYSIS MICROSCOPIC FOR UA REFLEX STAT 05/24/2024 9:15 PM EDT URINE HEATON PANEL STAT 05/24/2024 9:15 PM EDT URINALYSIS WITH REFLEX MICROSCOPIC STAT 05/24/2024 9:15 PM EDT URINALYSIS WITH REFLEX MICROSCOPIC AND CULTURE STAT 05/24/2024 9:15 PM EDT TROPONIN T, HIGH SENSITIVITY, 0 HOUR, PLASMA, REFLEX TO 2 HOUR STAT 05/24/2024 7:26 PM EDT LACTATE, VENOUS STAT 05/24/2024 7:26 PM EDT NASOPHARYNGEAL RESPIRATORY PANEL Add-On 05/24/2024 7:26 PM EDT SARS-COV-2, FLU A, FLU B, AND RSV - RAPID STAT 05/24/2024 7:26 PM EDT XR CHEST 2 VIEWS STAT 05/24/2024 7:06 PM EDT ED HIV 1/2 ANTIBODY/ANTIGEN SCREEN WITH REFLEX TO HIV I/II DIFFERENTIATION STAT 05/24/2024 6:47 PM EDT ED PROTOCOL HIV 1/2 ANTIBODY/ANTIGEN SCREEN W/REFLEX TO HIV 1/2 ANTIBODY DIFFERENTIATION STAT 05/24/2024 6:47 PM EDT HEPATITIS C ANTIBODY - ED W/REFLEX TO HCV QUANT PCR STAT 05/24/2024 6:47 PM EDT PHOSPHORUS, PLASMA STAT 05/24/2024 6: 47 PM EDT MAGNESIUM, PLASMA STAT 05/24/2024 6:4 7 PM EDT FREE T4, PLASMA STAT 05/24/2024 6:47 PM EDT TSH STAT 05/24/2024 6:47 PM EDT CBC WITH AUTO DIFFERENTIAL STAT 05/24/2024 6:47 PM EDT COMPREHENSIVE METABOLIC PANEL, PLASMA STAT 05/24/2024 6:47 PM EDT ECG ADULT STAT 05/24/2024 5:31 PM EDT PHOSPHORUS, PLASMA Routine 05/19/2024 11:09 AM EDT Malignant tumor of right ureter (CMS/HCC) COMPREHENSIVE METABOLIC PANEL, PLASMA Routine 05/19/2024 11:09 AM EDT Malignant tumor of right ureter (CMS/HCC) CBC WITH AUTO DIFFERENTIAL Routine 05/19/2024 11:09 AM EDT Malignant tumor of right ureter (CMS/HCC) from Last 3 Months Results * (ABNORMAL) Comprehensive Metabolic Panel, Plasma (08/06/2024 12:16 PM EDT) Only the most recent of9 resultswithin the time period is included. Glucose, Plasma 95 74 - 99 mg/dL 08/06/2024 12:16 PM EDT [facility] BUN, Plasma 21 8 - 23 mg/dL 08/06/2024 12:16 PM EDT [facility] Creatinine, Plasma 1.05 0.70 - 1.20 mg/dL 08/06/2024 12:16 PM EDT [facility] BUN/Creatinine Ratio 20 08/06/2024 12:16 PM EDT [facility] Sodium, Plasma 133(L) 136 - 145 mmol/L 08/06/2024 12:16 PM EDT [facility] Potassium, Plasma 4.5 3.6 - 4.9 mmol/L 08/06/2024 12:16 PM EDT [facility] Chloride, Plasma 97 97 - 107 mmol/L 08/06/2024 12:16 PM EDT [facility] CO2, Plasma 23 22 - 29 mmol/L 08/06/2024 12:16 PM EDT [facility] Anion Gap 13 6 - 16 mmol/L 08/06/2024 12:16 PM EDT [facility] Total Calcium, Plasma 9.9 8.9 - 10.2 mg/dL 08/06/2024 12:16 PM EDT [facility] Total Protein 7.8 6.3 - 7.9 g/dL 08/06/2024 12:16 PM EDT [facility] Albumin, Plasma 4.3 3.5 - 5.2 g/dL 08/06/2024 12:16 PM EDT [facility] AST, Plasma 43 10 - 50 U/L 08/06/2024 12:16 PM EDT [facility] ALT, Plasma 30 10 - 50 U/L 08/06/2024 12:16 PM EDT [facility] Alkaline Phosphatase, Plasma 117(H) 40 - 115 U/L 08/06/2024 12:16 PM EDT [facility] Total Bilirubin, Plasma 0.2 0.2 - 1.1 mg/dL 08/06/2024 12:16 PM EDT [facility] eGFRcr 81.3 mL/min/1.7 3m*2 08/06/2024 12:16 PM EDT [facility] Comment:Reported eGFRcr in m L/min/1.73m2 is based the CKD-EPI 2020 equation that does not use a race coefficient. Blood Venous blood specimen / Unknown 08/06/2024 11:45 AM EDT us Bobby Vazquez MD LAB BLOOD ORDERABLES Final Resul t [facility] [address] [place] [address] * (ABNORMAL) CBC and Differential (08/06/2024 11:26 AM EDT) Only the most recent of10 resultswithin the time period is included. WBC Count 22.24(H) 3.70 - 10.30 10*3/uL LAB HEMATOLOGY METHOD 08/06/2024 12:23 PM EDT [facility] RBC Count 4.38(L) 4.60 - 6.10 10*6/uL LAB HEMATOLOGY METHOD 08/06/2024 12:23 PM EDT [facility] HGB 11.2(L) 13.7 - 17.5 g/dL LAB HEMATOLOGY METHOD 08/06/2024 12:23 PM EDT [facility] HCT 34.8(L) 40.0 - 51.0 % LAB HEMATOLOGY METHOD 08/06/2024 12:23 PM EDT [facility] Platelet Count 313 155 - 369 10*3/uL LAB HEMATOLOGY METHOD 08/06/2024 12:23 PM EDT [facility] MCV 80 79 - 98 fL LAB HEMATOLOGY METHOD 08/06/2024 12:23 PM EDT [facility] MCH 25.6(L) 26.0 - 32.0 pg LAB HEMATOLOGY METHOD 08/06/2024 12:23 PM EDT [facility] MCHC 32.2 30.7 - 35.5 g/dL LAB HEMATOLOGY METHOD 08/06/2024 12:23 PM EDT [facility] RDW 17.2(H) 11.5 - 14.5 % LAB HEMATOLOGY METHOD 08/06/2024 12:23 PM EDT [facility] MPV 9.4 8.8 - 12.5 fL LAB HEMATOLOGY METHOD 08/06/2024 12:23 PM EDT [facility] nRBC 0.0 <=0.0 per 100 WBCs LAB HEMATOLOGY METHOD 08/06/2024 12:23 PM EDT [facility] Differential Type Automated LAB HEMATOLOGY METHOD 08/06/2024 12:23 PM EDT [facility] Neutrophils % 86 % LAB HEMATOLOGY METHOD 08/06/2024 12:23 PM EDT [facility] Lymphocytes % 7 % LAB HEMATOLOGY METHOD 08/06/2024 12:23 PM EDT [facility] Monocytes % 5 % LAB HEMATOLOGY METHOD 08/06/2024 12:23 PM EDT [facility] Eosinophils % 0 % LAB HEMATOLOGY METHOD 08/06/2024 12:23 PM EDT [facility] Basophils % 0 % LAB HEMATOLOGY METHOD 08/06/2024 12:23 PM EDT [facility] Immature Granulocytes % 2 % LAB HEMATOLOGY METHOD 08/06/2024 12:23 PM EDT [facility] Neutrophils Absolute 19.25(H) 1.60 - 6.10 10*3/uL LAB HEMATOLOGY METHOD 08/06/2024 12:23 PM EDT [facility] Lymphocytes Absolute 1.45 1.20 - 3.90 10*3/uL LAB HEMATOLOGY METHOD 08/06/2024 12:23 PM EDT [facility] Monocytes Absolute 1.14(H) 0.30 - 0.90 10*3/uL LAB HEMATOLOGY METHOD 08/06/2024 12:23 PM EDT [facility] Eosinophils Absolute 0.01 0.00 - 0.50 10*3/uL LAB HEMATOLOGY METHOD 08/06/2024 12:23 PM EDT [facility] Basophils Absolute 0.04 0.00 - 0.10 10*3/uL LAB HEMATOLOGY METHOD 08/06/2024 12:23 PM EDT [facility] Immature Granulocytes Absolute 0.35(H) 0.00 - 0.06 10*3/uL LAB HEMATOLOGY METHOD 08/06/2024 12:23 PM EDT [facility] Blood Venous blood specimen / Unknown (Central Line) Existing Catheter / Unknown 08/06/2024 11:26 AM EDT 08/06/2024 12:20 PM EDT Narrative [facility] - 08/06/2024 12:23 PM EDT Therapeutic decision making should be based on absolute values, rather than percentages. us Bobby Vazquez MD LAB BLOOD ORDERABLES Final Resul t [facility] [address] [place] [address] * (ABNORMAL) TSH (08/02/2024 9:30 AM EDT) Only the most recent of2 resultswithin the time period is included. Thyroid Stimulating Hormone, Plasma 6.39(H) 0.40 - 4.20 uIU/mL 08/02/2024 10:[address] [facility] Blood Blood sample taken from central line / Unknown (Port) Long-term Catheter / Unknown 08/02/2024 9:30 AM EDT 08/02/2024 9:36 AM EDT us Carlito Mccartney MD LAB BLOOD ORDERABLES Final Resu lt Performing Organization Address [facility]/[place] [address] * T4, free (08/02/2024 9:30 AM EDT) Only the most recent of3 resultswithin the time period is included. Free T4, Plasma 1.6 0.8 - 1.7 ng/dL 08/02/2024 10:[address] [facility] Blood Blood sample taken from central line / Unknown (Port) Long-term Catheter / Unknown 08/02/2024 9:30 AM EDT 08/02/2024 9:36 AM EDT us Carlito Mccartney MD LAB BLOOD ORDERABLES Final Resu lt Performing Organization Address [facility]/[place] [address] * [place] Less than 1 Hour Intraoperative (07/28/2024 1:42 PM EDT) Narrative [facility] - 07/28/2024 1:42 PM EDT Images were obtained for surgical purposes. See Gloria Velasquez's surgical note in the patient's chart for the findings. us Gloria Velasquez MD IMG FLUOROSCOPY PROCEDURES F inal Result Performing Organization Address City/[facility]/ZIP Co de Phone Number IMAGING * Urine Culture (07/28/2024 1:32 PM EDT) Only the most recent of2 resultswithin the time period is included. Culture No growth at day 1 07/29/2024 11:09 AM EDT [facility] Urine Right kidney structure / Unknown 07/28/2024 1:32 PM EDT 07/28/2024 2:03 PM EDT Comment:Pre-op diagnosis: Hydronephrosis with renal and ureteral calculus obstruction [N13.2] us Gloria Velasquez MD LAB MICROBIOLOGY - GENERAL O RDERABLES Final Result [facility] [address] [place] [address] * [place] AN ELECTIVE ENDOTRACHEAL AIRWAY, PB ANESTHESIA PLACEHOLDER (07/28/2024 1:02 PM EDT) Narrative Miriam Mayfield CRNA - 07/28/2024 1:02 PM EDT Miriam Mayfield CRNA 07/28/2024 1:14 PM Airway Date/Time: 07/28/2024 1:02 PM Reason: elective Airway not difficult General Information and Staff Patient location during procedure: [place] PROFESSIONAL VOLLEYBALL PLAYER: Miriam Mayfield CRNA Performed: PROFESSIONAL VOLLEYBALL PLAYER Patient Condition Indications for airway management: anesthesia [...] Royal MD ANESTHESIA ORDERABLES Final Res ult * CT Abdomen Pelvis w IV Contrast (07/27/2024 9:11 PM EDT) Only the most recent of3 resultswithin the time period is included. Anatomical Region Laterality Modality Abdomen, Pelvis Computed [...] MD IMG CT PROCEDURES Final Result * Urine [place] Panel (07/27/2024 7:51 PM EDT) Only the most recent of2 resultswithin the time period is included. Extra Reflex urine culture not indicated 07/27/2024 10:01 PM EDT [facility] Urine Urine specimen obtained by clean catch procedure / Unknown Non-blood Collection / Unknown 07/27/2024 7:51 PM EDT 07/27/2024 8:04 PM EDT Jin Clark MD LAB URINE ORDERABLES Fi nal Result [facility] [address] [place] [address] * Urinalysis Microscopic Examination (07/27/2024 7:51 PM EDT) Only the most recent of3 resultswithin the time period is included. Urine Urine specimen obtained by clean catch procedure / Unknown Non-blood Collection / Unknown 07/27/2024 7:51 PM EDT 07/27/2024 7:54 PM EDT us Jin Clark MD LAB URINE ORDERABLES Fi nal Result [facility] [address] [place] [address] * (ABNORMAL) Urinalysis with reflex microscopic (Culture NOT Included) (07/27/2024 7:51 PM EDT) Only the most recent of3 resultswithin the time period is included. Color, Urine Dark Yellow LAB URINALYSIS - AUTOMATED METHOD 07/27/2024 9:44 PM EDT [facility] Clarity, Urine Clear LAB URINALYSIS - AUTOMATED METHOD 07/27/2024 9:44 PM EDT [facility] Spec [place], Urine 1.008 1.005 - 1.030 LAB URINALYSIS - AUTOMATED METHOD 07/27/2024 9:44 PM EDT [facility] pH, Urine 7.0 5.0 - 8.0 LAB URINALYSIS - AUTOMATED METHOD 07/27/2024 9:44 PM EDT [facility] Protein, Urine 100(A) Negative mg/dL LAB URINALYSIS - AUTOMATED METHOD 07/27/2024 9:44 PM EDT [facility] Glucose, Urine Negative Negative mg/dL LAB URINALYSIS - AUTOMATED METHOD 07/27/2024 9:44 PM EDT [facility] Ketones, Urine Negative Negative mg/dL LAB URINALYSIS - AUTOMATED METHOD 07/27/2024 9:44 PM EDT [facility] Blood, Urine Large(A) Negative LAB URINALYSIS - AUTOMATED METHOD 07/27/2024 9:44 PM EDT [facility] Bilirubin, Urine Negative Negative LAB URINALYSIS - AUTOMATED METHOD 07/27/2024 9:44 PM EDT [facility] Urobilinogen, Urine 1.0 0.2 to 1.0 mg/dL LAB URINALYSIS - AUTOMATED METHOD 07/27/2024 9:44 PM EDT [facility] Leukocytes, Urine Small(A) Negative LAB URINALYSIS - AUTOMATED METHOD 07/27/2024 9:44 PM EDT [facility] Nitrite, Urine Positive(A) Negative LAB URINALYSIS - AUTOMATED METHOD 07/27/2024 9:44 PM EDT [facility] RBC, Urine 3 0 to 3 /HPF LAB URINALYSIS - AUTOMATED METHOD 07/27/2024 9:44 PM EDT [facility] Comment: Confirmed This result was previously suppressed from the chart. WBC, Urine 0 - 5 0 to 5 /HPF LAB URINALYSIS - AUTOMATED METHOD 07/27/2024 9:44 PM EDT [facility] Comment:This result was prev iously suppressed from the chart. Squamous Epithelial Cells 0 - 2 0 to 5 /HPF LAB URINALYSIS - AUTOMATED METHOD 07/27/2024 9:44 PM EDT [facility] Comment:This result was prev iously suppressed from the chart. Hyaline Casts 0 - 2 0 to 5 /LPF LAB URINALYSIS - AUTOMATED METHOD 07/27/2024 9:44 PM EDT [facility] Comment:This result was prev iously suppressed from the chart. Bacteria, Urine Present Negative LAB URINALYSIS - AUTOMATED METHOD 07/27/2024 9:44 PM EDT [facility] Comment:This result was prev iously suppressed from the chart. Urine Urine specimen obtained by clean catch procedure / Unknown Non-blood Collection / Unknown 07/27/2024 7:51 PM EDT 07/27/2024 7:54 PM EDT Narrative [facility] - 07/27/2024 9:44 PM EDT Performed by manual method us Jin Clark MD LAB URINE ORDERABLES Fi nal Result [facility] [address] [place] [address] * Lactic acid, venous (07/27/2024 6:50 PM EDT) Only the most recent of3 resultswithin the time period is included. Lactate, Venous, Whole Blood 1.9 0.5 - 2.2 mmol/L LAB HEMATOLOGY METHOD 07/27/2024 7:14 PM EDT [facility] Blood Venous blood specimen / Unknown Venipuncture / Unknown 07/27/2024 6:50 PM EDT 07/27/2024 7:09 PM EDT Jin Clark MD LAB BLOOD ORDERABLES Fi nal Result Performing Organization Address [facility] Co de Phone Number [facility] [address] [place] [address] * Procalcitonin (07/27/2024 6:50 PM EDT) Procalcitonin, Plasma 0.07 <0.09 ng/mL 07/27/2024 7:45 PM EDT [facility] Blood Venous blood specimen / Unknown Venipuncture / Unknown 07/27/2024 6:50 PM EDT 07/27/2024 7:04 PM EDT Narrative [facility] - 07/27/2024 7:45 PM EDT [...] predict 28 day mortality risk. Please consult [email or web address] for more information. Test performed at [facility]. Jin Clark MD LAB BLOOD ORDERABLES Fi nal Result Performing Organization Address City/[facility]/ZIP Co de Phone Number [facility] [address] [place] [address] * Lipase (07/27/2024 6:50 PM EDT) Lipase, Plasma 25 19 - 63 U/L 07/27/2024 7:45 PM EDT [facility] Blood Venous blood specimen / Unknown Venipuncture / Unknown 07/27/2024 6:50 PM EDT 07/27/2024 7:04 PM EDT Jin Clark MD LAB BLOOD ORDERABLES Fi nal Result Performing Organization Address City/[facility]/ZIP Co de Phone Number [facility] [address] [place] [address] * Phosphorus, Plasma (07/24/2024 4:06 AM EDT) Only the most recent of8 resultswithin the time period is included. Phosphorus, Plasma 3.3 2.5 - 4.5 mg/dL 07/24/2024 4:50 AM EDT [facility] Blood Venous blood specimen / Unknown Venipuncture / Unknown 07/24/2024 4:06 AM EDT 07/24/2024 4:19 AM EDT Elliot Frankel MD LAB BLOOD ORDERABLES Final Res ult Performing Organization Address City/[facility]/[place] [address] * Magnesium, Plasma (07/24/2024 4:06 AM EDT) Only the most recent of6 resultswithin the time period is included. Magnesium, Plasma 2.0 1.9 - 2.4 mg/dL 07/24/2024 4:50 AM EDT [facility] Blood Venous blood specimen / Unknown Venipuncture / Unknown 07/24/2024 4:06 AM EDT 07/24/2024 4:19 AM EDT Elliot Frankel MD LAB BLOOD ORDERABLES Final Res ult [facility] [address] [place] [address] * Sodium, urine, random (07/23/2024 10:59 PM EDT) Sodium, Urine 22 mmol/L 07/23/2024 11:46 PM EDT [facility] Urine Urine specimen obtained by clean catch procedure / Unknown Non-blood Collection / Unknown 07/23/2024 10:59 PM EDT 07/23/2024 11:14 PM EDT us Tomasz T Milo DO LAB URINE ORDERABLES Final Res ult Performing Organization Address [facility]/ZIP Co de Phone Number [facility] [address] [place] [address] * Creatinine, urine, random (07/23/2024 10:59 PM EDT) Creatinine, Urine 16 mg/dL 07/23/2024 11:46 PM EDT [facility] Urine Urine specimen obtained by clean catch procedure / Unknown Non-blood Collection / Unknown 07/23/2024 10:59 PM EDT 07/23/2024 11:14 PM EDT us Pandabuser DO LAB URINE ORDERABLES Final Res ult Performing Organization Address [facility] de Phone Number [facility] [address] [place] [address] * CT Chest w IV Contrast (07/14/2024 [...] Total DLP (Dose-Length Product): 993.50 mGy.cm (accession [id number]), 993.50 mGy.cm (accession [id number]). Please note: The reported value represents the [...] Total DLP (Dose-Length Product): 993.50 mGy.cm (accession [id number]),993.50 mGy.cm (accession [id number]). Please note: The reported valuerepresents the total [...] MD IMG CT PROCEDURES Final Result * (ABNORMAL) TSH Reflex FT4 (06/16/2024 9:54 AM EDT) Pathologist [facility] Thyroid Stimulating Hormone, Plasma 6.11(H) 0.40 - 4.20 uIU/mL 06/16/2024 11:04 AM EDT [facility] Blood Venous blood specimen / Unknown (Central Line) Existing Catheter / Unknown 06/16/2024 9:54 AM EDT 06/16/2024 10:21 AM EDT us Bobby Vazquez MD LAB BLOOD ORDERABLES Final Resul t [facility] [address] [place] [address] * (ABNORMAL) Basic metabolic panel (05/27/2024 5:03 AM EDT) Only the most recent of2 resultswithin the time period is included. Pathologist [facility] Glucose, Plasma 103(H) 74 - 99 mg/dL 05/27/2024 5:49 AM EDT [facility] BUN, Plasma 7(L) 8 - 23 mg/dL 05/27/2024 5:49 AM EDT [facility] Creatinine, Plasma 1.08 0.70 - 1.20 mg/dL 05/27/2024 5:49 AM EDT [facility] BUN/Creatinine Ratio 6 05/27/2024 5:49 AM EDT [facility] Sodium, Plasma 140 136 - 145 mmol/L 05/27/2024 5:49 AM EDT [facility] Potassium, Plasma 4.1 3.6 - 4.9 mmol/L 05/27/2024 5:49 AM EDT [facility] Chloride, Plasma 103 97 - 107 mmol/L 05/27/2024 5:49 AM EDT [facility] CO2, Plasma 25 22 - 29 mmol/L 05/27/2024 5:49 AM EDT [facility] Anion Gap 12 6 - 16 mmol/L 05/27/2024 5:49 AM EDT [facility] Total Calcium, Plasma 9.6 8.9 - 10.2 mg/dL 05/27/2024 5:49 AM EDT [facility] eGFRcr 78.6 mL/min/1.7 3m*2 05/27/2024 5:49 AM EDT [facility] Comment:Reported eGFRcr in m L/min/1.73m2 is based the CKD-EPI 2020 equation that does not use a race coefficient. Blood Venous blood specimen / Unknown Venipuncture / Unknown 05/27/2024 5:03 AM EDT 05/27/2024 5:17 AM EDT us Rosendo Heard MD LAB BLOOD ORDERABLES Final Res ult [facility] [address] [place] [address] * Methicillin Resistant Staphylococcus aureus (MRSA) by PCR (05/25/2024 9:30 AM EDT) Pathologist [facility] Methicillin Resistant Staphylococcus aureus (MRSA) by PCR Not Detected Not Detected 05/25/2024 11:54 AM EDT [facility] Swab Both anterior nares / Unknown Non-blood Collection / Unknown 05/25/2024 9:30 AM EDT 05/25/2024 9:57 AM EDT Narrative [facility] - 05/25/2024 11:54 AM EDT This test is FDA approved for use with nares swab specimens using the eSwabs. This test is used for clinical purposes. It should not be regarded as investigational or for research. This laboratory is certified under the Clinical Laboratory improvement Amendments of 1988 (CLIA-88 as qualified to perform high complexity clinical laboratory testing. Rosendo Heard MD LAB MICROBIOLOGY - GENERAL ORD ERABLES Final Result Performing Organization Address City/[facility]/ZIP Co de Phone Number [facility] [address] [place] [address] * Blood Culture (Aerobic/Anaerobet Set) (05/25/2024 4:28 AM EDT) Culture No growth at day 5 05/30/2024 7:01 AM EDT [facility] Blood Structure of part of left upper limb / Unknown Venipuncture / Unknown 05/25/2024 4:28 AM EDT 05/25/2024 5:58 AM EDT Narrative [facility] - 05/30/2024 7:01 AM EDT Low blood volume submitted, results may be compromised Elsa Mohamud APRN LAB MICROBIOLOGY - GENERAL ORDERABLES Final Result [facility] [address] [place] [address] * Prothrombin Time/INR (05/25/2024 4:28 AM EDT) Prothrombin Time 13.9 12.0 - 14.3 sec 05/25/2024 5:16 AM EDT [facility] INR 1.1 0.9 - 1.1 05/25/2024 5:16 AM EDT [facility] Blood Venous blood specimen / Unknown Venipuncture / Unknown 05/25/2024 4:28 AM EDT 05/25/2024 5:02 AM EDT Narrative [facility] - 05/25/2024 5:16 AM EDT OPTIMAL INR RANGES FOR PATIENT ON ORAL ANTICOAGULANT THERAPY Prevention of venous thromboembolism INR 2.0 to 3.0 In patients with heart disease: Atrial fibrillation INR 2.0 to 3.0 Valvular heart disease INR 2.0 to 3.0 Tissue heart valves INR 2.0 to 3.0 Mechanical prosthetic valves INR 2.5 to 3.5 Prevention of recurrent NH INR 2.5 to 3.5 us Elsa Mohamud NUCLEAR MONITORING TECHNICIAN LAB BLOOD ORDERABLES Final Result [facility] [address] [place] [address] * (ABNORMAL) CBC (05/25/2024 4:28 AM EDT) WBC Count 8.29 3.70 - 10.30 10*3/uL LAB HEMATOLOGY METHOD 05/25/2024 5:05 AM EDT [facility] RBC Count 3.64(L) 4.60 - 6.10 10*6/uL LAB HEMATOLOGY METHOD 05/25/2024 5:05 AM EDT [facility] HGB 9.8(L) 13.7 - 17.5 g/dL LAB HEMATOLOGY METHOD 05/25/2024 5:05 AM EDT [facility] HCT 30.6(L) 40.0 - 51.0 % LAB HEMATOLOGY METHOD 05/25/2024 5:05 AM EDT [facility] Platelet Count 233 155 - 369 10*3/uL LAB HEMATOLOGY METHOD 05/25/2024 5:05 AM EDT [facility] MCV 84 79 - 98 fL LAB HEMATOLOGY METHOD 05/25/2024 5:05 AM EDT [facility] MCH 26.9 26.0 - 32.0 pg LAB HEMATOLOGY METHOD 05/25/2024 5:05 AM EDT [facility] MCHC 32.0 30.7 - 35.5 g/dL LAB HEMATOLOGY METHOD 05/25/2024 5:05 AM EDT [facility] RDW 15.6(H) 11.5 - 14.5 % LAB HEMATOLOGY METHOD 05/25/2024 5:05 AM EDT [facility] MPV 9.6 8.8 - 12.5 fL LAB HEMATOLOGY METHOD 05/25/2024 5:05 AM EDT [facility] nRBC 0.0 <=0.0 per 100 WBCs LAB HEMATOLOGY METHOD 05/25/2024 5:05 AM EDT [facility] Blood Venous blood specimen / Unknown Venipuncture / Unknown 05/25/2024 4:28 AM EDT 05/25/2024 5:02 AM EDT Elsa Mohamud APRN LAB BLOOD ORDERABLES Final Result [facility] [address] [place] [address] * (ABNORMAL) Renal function panel (05/25/2024 4:28 AM EDT) Glucose, Plasma 116(H) 74 - 99 mg/dL 05/25/2024 5:51 AM EDT [facility] BUN, Plasma 13 8 - 23 mg/dL 05/25/2024 5:51 AM EDT [facility] [facility] Creatinine, Plasma 1.23(H) 0.70 - 1.20 mg/dL 05/25/2024 5:51 AM EDT [facility] BUN/Creatinine Ratio 11 05/25/2024 5:51 AM EDT [facility] Sodium, Plasma 141 136 - 145 mmol/L 05/25/2024 5:51 AM EDT [facility] Potassium, Plasma 4.3 3.6 - 4.9 mmol/L 05/25/2024 5:51 AM EDT [facility] Chloride, Plasma 102 97 - 107 mmol/L 05/25/2024 5:51 AM EDT [facility] CO2, Plasma 27 22 - 29 mmol/L 05/25/2024 5:51 AM EDT [facility] Anion Gap 12 6 - 16 mmol/L 05/25/2024 5:51 AM EDT [facility] Total Calcium, Plasma 9.6 8.9 - 10.2 mg/dL 05/25/2024 5:51 AM EDT [facility] Phosphorus, Plasma 5.5(H) 2.5 - 4.5 mg/dL 05/25/2024 5:51 AM EDT [facility] Albumin, Plasma 3.7 3.5 - 5.2 g/dL 05/25/2024 5:51 AM EDT [facility] eGFRcr 67.2 mL/min/1.7 3m*2 05/25/2024 5:51 AM EDT [facility] Comment:Reported eGFRcr in m L/min/1.73m2 is based the CKD-EPI 2020 equation that does not use a race coefficient. Blood Venous blood specimen / Unknown Venipuncture / Unknown 05/25/2024 4:28 AM EDT 05/25/2024 5:11 AM EDT Elsa Mohamud APRN LAB BLOOD ORDERABLES Final Result [facility] [address] [place] [address] * Streptococcus pneumoniae and Legionella Urinary Antigen (05/25/2024 12:40 AM EDT) Pathologist [facility] Legionella pneumophila serogroup 1 Antigen Result (Urine) Negative Negative 05/25/2024 8:02 AM EDT [facility] Streptococcus pneumoniae Antigen Result (Urine) Negative Negative 05/25/2024 8:02 AM EDT [facility] Urine Urine specimen obtained by clean catch procedure / Unknown Non-blood Collection / Unknown 05/25/2024 12:40 AM EDT 05/25/2024 12:42 AM EDT Elsa Mohamud APRN LAB MICROBIOLOGY - GENERAL ORDERABLES Final Result [facility] [address] [place] [address] * (ABNORMAL) Troponin T, High Sensitivity, 2 Hour, Plasma (05/24/2024 9:37 PM EDT) Troponin T, High Sensitivity, 2 Hour 31(H) <19 ng/L 05/24/2024 10:00 PM EDT [facility] Troponin Delta 7 <10 ng/L 05/24/2024 10:00 PM EDT [facility] Troponin Delta Interpretation Not Significant 05/24/2024 10:00 PM EDT [facility] Comment:Not Significant. No acute change in troponin observed between the baseline and 2 hour samples. Blood Venous blood specimen / Unknown Venipuncture / Unknown 05/24/2024 9:37 PM EDT 05/24/2024 9:40 PM EDT us Lincoln Arnold MD LAB BLOOD ORDERABLES Final Result [facility] [address] [place] [address] * CT Angio Pulmonary Embolism (05/24/2024 9:27 PM EDT) Anatomical Region Laterality Modality Chest Computed Tomogra phy Impressions 05/24/2024 10:19 PM EDT No pulmonary embolism. Endobronchial debris in the right lower lobe bronchus with associated consolidation of the right medial and lateral segments suggestive of aspiration or infection. CRITICAL RESULT: No. COMMUNICATION: Per this written report. Drafted by Bonnie Roberson MD on 05/24/2024 10:17 PM Final report signed by Bonnie Roberson MD on 05/24/2024 10:19 PM Narrative 05/24/2024 10:19 PM EDT CLINICAL INDICATION: concern for pe TECHNIQUE: Imaging of the chest was performed from thoracic inlet through upper abdomen, using spiral technique, with administration of IV contrast per the pulmonary angiogram protocol. 100 mL of Omnipaque-350 were administered intravenously. Coronal MIP images were reconstructed from this dataset. Total DLP (Dose-Length Product): 1435.24 mGy.cm. Please note: The reported value represents the total of one or more individual components during the CT acquisition on this date and at this time, and as such, the same value may appear in more than one CT report depending on the interpreting/reporting physicians. COMPARISON: 04/19/2024 FINDINGS: Pulmonary Arteries/Vessels: No filling defect. Right Heart Strain: Absent. Mediastinum and Pleura: No mediastinal or hilar adenopathy. No pleural or pericardial effusion. Lungs: Endobronchial debris in the right lower lobe bronchus with associated consolidation of the right medial and lateral segments of the lower lobe. Upper Abdomen: No suspicious lesions in the partially visualized upper abdomen. Musculoskeletal: No suspicious lytic or sclerotic lesion. Procedure Note Bonnie Roberson MD - 05/24/2024 CLINICAL INDICATION: concern for pe TECHNIQUE: Imaging of the chest was performed from thoracic inlet through upperabdomen, using spiral technique, with administration of IV contrast perthe pulmonary angiogram protocol. 100 mL of Omnipaque-350 wereadministered intravenously. Coronal MIP images were reconstructed fromthis dataset. Total DLP (Dose-Length Product): 1435.24 mGy.cm. Please note: The reportedvalue represents the total of one or more individual components during theCT acquisition on this date and at this time, and as such, the same valuemay appear in more than one CT report depending on theinterpreting/reporting physicians. COMPARISON: 04/19/2024 FINDINGS: Pulmonary Arteries/Vessels: No filling defect. Right Heart Strain: Absent. Mediastinum and Pleura: No mediastinal or hilar adenopathy. No pleural orpericardial effusion. Lungs: Endobronchial debris in the right lower lobe bronchus withassociated consolidation of the right medial and lateral segments of thelower lobe. Upper Abdomen: No suspicious lesions in the partially visualized upperabdomen. Musculoskeletal: No suspicious lytic or sclerotic lesion. IMPRESSION: No pulmonary embolism. Endobronchial debris in the right lower lobe bronchus with associatedconsolidation of the right medial and lateral segments suggestive ofaspiration or infection. CRITICAL RESULT: No. COMMUNICATION: Per this written report. Drafted by Bonnie Roberson MD on 05/24/2024 10:17 PM Final report signed by Bonnie Roberson MD on 05/24/2024 10:19 PM us Lincoln Arnold MD IMG CT PROCEDURES Final Res ult * CT Head wo IV Contrast (05/24/2024 9:27 PM EDT) Anatomical Region Laterality Modality Head Computed Tomogra phy Impressions 05/24/2024 9:48 PM EDT No acute findings. CRITICAL RESULT: No. COMMUNICATION: Per this written report. Drafted by Jose Woods MD on 05/24/2024 9:46 PM Final report signed by Jose Woods MD on 05/24/2024 9:48 PM Narrative 05/24/2024 9:48 PM EDT CLINICAL INDICATION: ams TECHNIQUE: Routine contiguous axial CT images of the head were obtained without contrast administration. Total DLP (Dose-Length Product): 1435.24 mGy.cm. Please note: The reported value represents the total of one or more individual components during the CT acquisition on this date and at this time, and as such, the same value may appear in more than one CT report depending on the interpreting/reporting physicians. COMPARISON: 02/27/2023 FINDINGS: The CSF spaces appear clear. There is no midline shift, no attenuation of the basilar cisterns. Stable ventricular size, configuration. No evidence of acute large territory infarct. No acute intracranial hemorrhage. The calvarium and the skull base are without acute findings. The mastoids, middle ear cavities, and the paranasal sinuses are aerated. Extracranial soft tissues without acute findings. Procedure Note Jose Woods MD - 05/24/2024 CLINICAL INDICATION: ams TECHNIQUE: Routine contiguous axial CT images of the head were obtained withoutcontrast administration. Total DLP (Dose-Length Product): 1435.24 mGy.cm. Please note: The reportedvalue represents the total of one or more individual components during theCT acquisition on this date and at this time, and as such, the same valuemay appear in more than one CT report depending on theinterpreting/reporting physicians. COMPARISON: 02/27/2023 FINDINGS: The CSF spaces appear clear. There is no midline shift, no attenuation of the basilar cisterns. Stable ventricular size, configuration. No evidence of acute large territory infarct. No acute intracranial hemorrhage. The calvarium and the skull base are without acute findings. The mastoids, middle ear cavities, and the paranasal sinuses areaerated. Extracranial soft tissues without acute findings. IMPRESSION: No acute findings. CRITICAL RESULT: No. COMMUNICATION: Per this written report. Drafted by Jose Woods MD on 05/24/2024 9:46 PM Final report signed by Jose Woods MD on 05/24/2024 9:48 PM Lincoln Arnold MD IMG CT PROCEDURES Final Res ult * SARS-CoV-2, Flu A, Flu B, and RSV - Rapid (05/24/2024 7:26 PM EDT) [facility] SARS CoV-2/COVID-19 RNA PCR Result Not Detected Not Detected 05/24/2024 8:55 PM EDT [facility] Influenza A Virus PCR Result Not Detected Not Detected 05/24/2024 8:55 PM EDT [facility] Influenza B Virus PCR Result Not Detected Not Detected 05/24/2024 8:55 PM EDT [facility] Respiratory Syncytial Virus (RSV) PCR Result Not Detected Not Detected 05/24/2024 8:55 PM EDT [facility] Swab Nasopharyngeal structure / Unknown Non-blood Collection / Unknown 05/24/2024 7:26 PM EDT 05/24/2024 7:54 PM EDT Narrative [facility] - 05/24/2024 8:55 PM EDT This test is FDA approved for use with nasopharyngeal specimens in Viral Transport Media (VTM). This test is used for clinical purposes. It should not be regarded as investigational or for research. This laboratory is certified under the Clinical Laboratory improvement Amendments of 1988 (CLIA-88 as qualified to perform high complexity clinical laboratory testing. This test was performed on the Xpert Xpress SARS CoV-2 Plus assay test, a PCR- based method. Negative results should be considered presumptive and do not preclude current or future infection obtained through community transmission or other exposures. Negative results must be considered in the context of an individual's recent exposures, history, presence of clinical signs and symptoms consistent with COVID-19. Lincoln Arnold MD LAB MICROBIOLOGY - GENERAL ORDERABLES Final Result [facility] [address] [place] [address] * (ABNORMAL) Troponin now and 120 min (05/24/2024 7:26 PM EDT) [facility] Troponin T, High Sensitivity, 0 Hour 38(H) <19 ng/L 05/24/2024 7:51 PM EDT [facility] Blood Venous blood specimen / Unknown Venipuncture / Unknown 05/24/2024 7:26 PM EDT 05/24/2024 7:28 PM EDT Lincoln Arnold MD LAB BLOOD ORDERABLES Final Result [facility] [address] [place] [address] * Nasopharyngeal Respiratory Panel (05/24/2024 7:26 PM EDT) [facility] Nasopharyngeal Respiratory PCR Interpretation Not Detected for all analytes Not Detected for all analytes 05/25/2024 1:33 AM EDT [facility] Swab Nasopharyngeal structure / Unknown Non-blood Collection / Unknown 05/24/2024 7:26 PM EDT 05/24/2024 7:54 PM EDT Narrative [facility] - 05/25/2024 1:33 AM EDT This assay can detect Adenovirus, Coronavirus, Human Metapneumovirus, Human Rhino/Enterovirus, Influenza A, Influenza A H1, Influenza A H1 2009, Influenza A H3, Influenza B, Parainfluenza Virus 1, Parainfluenza Virus 2, Parainfluenza Virus 3, Parainfluenza Virus 4, Respiratory Syncytial Virus A, Respiratory Syncytial Virus B, Chlamydia pneumoniae, and Mycoplasma pneumoniae. Note: This assay does NOT detect SARS/CoV, novel Coronavirus 2019-nCoV, Bordetella pertussis or Bordetella parapertussis. Nasopharyngeal Respiratory PCR Panel is performed using the Vision[employer] ePlex instrument. This test is FDA approved for use with Nasopharyngeal swabs only. This test is used for clinical purposes. It should not be regarded as investigational or for research. [facility] Micro[facility] Laboratory is certified under the Clinical Laboratory Improvement Amendments of 1988 (CLIA-88) as qualified to perform high complexity clinical laboratory testing. Elsa Mohamud APRN LAB MICROBIOLOGY - GENERAL ORDERABLES Final Result [facility] [address] [place] [address] * XR Chest 2 Views (05/24/2024 7:06 PM EDT) Anatomical Region Laterality Modality Chest Computed Radiogr aphy Impressions 05/24/2024 7:37 PM EDT No appreciable consolidation. Blunting of the posterior costophrenic sulci on the lateral view, suggesting presence of small effusions. CRITICAL RESULT: No. COMMUNICATION: Per this written report. Drafted by Jose Woods MD on 05/24/2024 7:35 PM Final report signed by Jose Woods MD on 05/24/2024 7:37 PM Narrative 05/24/2024 7:37 PM EDT CLINICAL INDICATION: SOA TECHNIQUE: XR CHEST 2 VIEWS COMPARISON: Chest x-ray 12/29/2023, CT of the chest 04/19/2024 FINDINGS: Stable cardiac size, and similar appearance of the cardiac and mediastinal contours. No appreciable consolidation. Blunting of the posterior costophrenic sulci on the lateral view, suggesting small basilar effusions. No pneumothorax. Right IJ Port-A-Cath in place, the tip of the catheter at the cavoatrial border. No free subdiaphragmatic gas. No acute osseous findings. Procedure Note Jose Woods MD - 05/24/2024 CLINICAL INDICATION: SOA TECHNIQUE: XR CHEST 2 VIEWS COMPARISON: Chest x-ray 12/29/2023, CT of the chest 04/19/2024 FINDINGS: Stable cardiac size, and similar appearance of the cardiac and mediastinalcontours. No appreciable consolidation. Blunting of the posteriorcostophrenic sulci on the lateral view, suggesting small basilareffusions. No pneumothorax. Right IJ Port-A-Cath in place, the tip of thecatheter at the cavoatrial border. No free subdiaphragmatic gas. No acuteosseous findings. IMPRESSION: No appreciable consolidation. Blunting of the posterior costophrenic sulcion the lateral view, suggesting presence of small effusions. CRITICAL RESULT: No. COMMUNICATION: Per this written report. Drafted by Jose Woods MD on 05/24/2024 7:35 PM Final report signed by Jose Woods MD on 05/24/2024 7:37 PM Lincoln Arnold MD IMG XR PROCEDURES Final Res ult * ED HIV 1/2 Antibody/Antigen Screen w/Reflex to HIV 1/2 Differentiation (05/24/2024 6:47 PM EDT) Pathologist [facility] HIV 1 & 2 Antibody/Antigen Screen Non Reactive Non Reactive 05/24/2024 7:38 PM EDT [facility] Comment:Screening for HIV 1 & 2 antibodies, and P24 antigen is NONREACTIVE. No confirmatory testing is required. Blood Venous blood specimen / Unknown Venipuncture / Unknown 05/24/2024 6:47 PM EDT 05/24/2024 6:58 PM EDT Lincoln Arnold MD LAB BLOOD ORDERABLES Final Result Performing Organization Address [facility] Co de Phone Number [facility] [address] [place] [address] * Hepatitis C Antibody - ED (05/24/2024 6:47 PM EDT) [facility] Hepatitis C Antibody Negative Negative 05/24/2024 7:38 PM EDT [facility] Blood Venous blood specimen / Unknown Venipuncture / Unknown 05/24/2024 6:47 PM EDT 05/24/2024 6:59 PM EDT Lincoln Arnold MD LAB BLOOD ORDERABLES Final Result Performing Organization Address City/[facility]/ZIP Co de Phone Number [facility] [address] [place] [address] * EKG now - STAT (adult) (05/24/2024 5:31 PM EDT) [facility] EKG DIAGNOSIS CLASS Borderline Normal MUSE ECG Ventricular Rate 119 BPM MUSE ECG Atrial Rate 119 BPM MUSE ECG TN Interval 150 ms MUSE ECG QRSD Interval 64 ms MUSE ECG QT Interval 280 ms MUSE ECG QTC Interval 393 ms MUSE ECG P [place] 55 degrees MUSE ECG R [place] 13 degrees MUSE ECG T Wave [place] 36 degrees MUSE ECG Diagnosis Poor data quality, interpretation may be adversely affected MUSE ECG Diagnosis Sinus tachycardia MUSE ECG Diagnosis Otherwise normal ECG MUSE ECG Diagnosis MUSE ECG Diagnosis Confirmed by Soledad Orta ([id number]) on 05/25/2024 10:57:28 AM MUSE ECG 05/24/2024 5:31 PM EDT 05/25/2024 10:57 AM EDT us Lincoln Arnold MD ECG ORDERABLES Final Resul t MUSE ECG from Last 3 Months Insurance [employer] [facility] MEDICAID Advance Directives * Full Code (Latest Code Status on File) Date Activated Date Inactivated Comments 07/28/2024 12:01 AM 07/28/2024 5:50 PM Question Answer Comments I have reviewed the capacity from the link above and, if needed, have updated to appropriate status: Yes * Full Code Date Activated Date Inactivated Comments 07/23/2024 7:02 PM 07/24/2024 11:33 AM Question Answer Comments I have reviewed the capacity from the link above and, if needed, have updated to appropriate status: Yes * Full Code Date Activated Date Inactivated Comments 05/24/2024 11:57 PM 05/27/2024 4:21 PM * Full Code Date Activated Date Inactivated Comments 02/27/2023 3:34 PM 03/01/2023 5:31 PM Question Answer Comments Patient has decision-making capacity? Yes Care Teams Lehr Operator Relationship Specialty Start Date End Date Efren Roy DO [address] [place], [place] [id number] PCP - General 03/04/23 Efren Roy DO [address] [place], [place] [id number] Pain Medicine 01/03/23 Rosa Maria Beltran APRN [address] [place] [address] [address] [place] [address] Nurse Practitioner Family Medicine 07/21/23 Bobby Vazquez MD [address] [facility] [address] [place] [address] Consulting Physician Medical Oncology 09/17/23 Cally Henderson PA [address] [facility] [address] [place] [address] Physician Department Store Salesperson Urology 09/17/23
== END 2024-08-12 12:55 | disposition home or self-care (01) ==
LOC: INF 11:36
PROVIDERS: PCP Family Medicine; Visit Provider Internal Medicine Hematology & Oncology
DX: C67.9 Malignant neoplasm of bladder, unspecified (principal)
CPT/HCPCS: 96360; J1642; J7030

== ENCOUNTER 2024-08-19 12:02 | Outpatient (CLI) | payer OTHER, SELFPAY ==
--- OUTSIDE RECORDS SUMMARY | 2024-07-14 08:28 | XMS_ITS | Encounter Summary ---
Author Organization [facility] Address [address] [place] [address] Care Team Providers Care Health Services Coordinator Name Role Phone Kirill Efren Parsons Unavailable [phone] Efren Roy DO Primary Care Provider [phone] Rosa Maria Beltran APRN Unavailable [phone] Bobby Vazquez MD Unavailable Cally Henderson Unavailable [phone] Reason for Referral * Imaging (Routine) - Closed Specialty Diagnoses / Procedures Referred By Contac t Referred To Contact Radiology Diagnoses Malignant tumor of right ureter (CMS/HCC) Procedures CT Abdomen Pelvis w IV Contrast Bobby Vazquez MD [address] [facility] [address] [place] [address] Phone: tel: fax: Referral ID Status Reason Start Date Expiration Date Visits Re quested Visits Authorized [id number] Closed 06/16/2024 12/16/2025 1 1 * Imaging (Routine) - Closed Specialty Diagnoses / Procedures Referred By Contac t Referred To Contact Radiology Diagnoses Malignant tumor of right ureter (CMS/HCC) Procedures CT Chest w IV Contrast Bobby Vazquez MD [address] [facility] [address] [place] [address] Phone: tel: fax: Referral ID Status Reason Start Date Expiration Date Visits Re quested Visits Authorized [id number] Closed 06/16/2024 12/16/2025 1 1 Reason for Visit * Imaging (Routine) - Closed Specialty Diagnoses / Procedures Referred By Contac t Referred To Contact Radiology Diagnoses Malignant tumor of right ureter (CMS/HCC) Procedures CT Abdomen Pelvis w IV Contrast Bobby Vazquez MD 800 [facility] [address] [place] [address] Phone: tel: fax: Referral ID Status Reason Start Date Expiration Date Visits Re quested Visits Authorized [id number] Closed 06/16/2024 12/16/2025 1 1 Encounter Details Date Type Department Care Team (Latest Contact Info) Description 07/14/2024 8:28 AM EDT - 07/14/2024 11:59 PM EDT Hospital Encounter [facility] [address] [place] [address] Malignant tumor of right ureter [...] place to sleep or slept in a fci (including now)? No 02/28/2023 PHQ-9 Answer Date [...] any time in the past 12 m [facility], were you homeless or living in a fci (including now)? No 05/27/2024 CAGE ASSESSMENT Answer [...] drink first t tianna in the morning (EYE-HUMAN CAPITAL ANALYST) to steady your nerves or to get rid of a hangover? 0 02/27/2023 CAGE Questionnaire Score 0 023 Utilities Answer Date Recorded In the past 12 months has th [employer], gas, oil, or water company threatened to [...] by mouth 2 (two) times a day. 82095 mL 5 06/16/2024 ondansetron ODT (Zofran-ODT) 4 [...] powder Take 17 g by mouth daily. senna-docusate sodium (Senokot-S) 8.6-50 MG tablet Take 1 tablet by mouth 1 (one) time each day. 30 tablet 3 05/28/2023 tamsulosin (Flomax) 0.4 MG 24 hr capsule TAKE 1 CAPSULE BY MOUTH ONCE A DAY WITH DINNER 30 capsule 02/17/2023 tiZANidine (Zanaflex) 2 MG tablet Take 1 tablet by mouth 3 (three) times a day as needed for muscle spasms. hydrOXYzine pamoate (Vistaril) 25 MG capsule Take 1 capsule (25 mg) by mouth 3 (three) times a day if needed for anxiety. 30 capsule 02/27/2024 OLANZapine (ZyPREXA) 10 MG tablet Take 1 tablet by mouth nightly. 5 oxybutynin XL (Ditropan-XL) 10 MG 24 hr tablet Take 1 tablet (10 mg) by mouth 1 (one) time each day. Do not crush, chew, or split. 30 tablet 11 07/30/2023 5 prochlorperazine (Compazine) 10 MG tabletIndications:D ehydration,Malignan t tumor of right ureter (CMS/HCC) Take 1 tablet (10 mg) by mouth every 6 (six) hours if needed for nausea or vomiting. 30 tablet 5 11/28/2023 5 Tirosint 125 MCG capsule Take 1 [...] Care Team (Late st Contact Info) Description 08/20/2024 9:30 AM EDT Office Visit [facility] Multidisciplinary Oncology Clinic [address] [place] [address] Sara Tesfaye APRN 800 [facility] Kenneth [address] [phone] 08/27/2024 1:00 PM EDT Office Visit [facility] Multidisciplinary Oncology Clinic [address] [place] [address] Bobby Vazquez MD 800 [facility] [address] [phone] 08/27/2024 1:00 PM EDT Clinical Support [facility] [address] [place] [address] 08/27/2024 2:30 PM EDT Appointment [facility] Infusion [facility] 2 [address] [place] [address] 09/17/2024 2:30 PM EDT Appointment [facility] 2 [address] [place] [address] 10/08/2024 2:30 PM EDT Appointment [facility] 2 [address] [place] [address] 10/19/2024 11:30 AM EDT Office Visit [facility] Multidisciplinary Oncology Clinic [address] [place] [address] Kym Romero, DIRECTOR [employer] 800 [facility] Kenneth [facility] [address] [place] [address] 11/24/2024 11:00 AM EDT Office Visit [facility] [address] [place] [address] Adal Franklin MD [address] [facility] [address] [place] [address] 12/15/2024 1:00 PM EDT Office Visit [facility] [address] [facility] [place] [address] Efren Fallon MD [address] [facility] [address] [place] [address] 12/29/2024 9:30 AM EDT Clinical Support [facility] [address] [facility], 2nd [place] [address] 12/29/2024 10:00 AM EDT Office Visit [facility] [address] [facility], [address]nd [place] [address] Carlito Mccartney MD [address] [facility] [address] [place] [address] 03/23/2025 10:40 AM EST Office Visit [facility] [address] [facility], [address]nd [place] [address] Arabella Romero, DIRECTOR [employer] [address] [place] [address] documented as of this encounter Procedures Procedure [...] Total DLP (Dose-Length Product): 993.50 mGy.cm (accession [id number]), 993.50 mGy.cm (accession [id number]). Please note: The reported value represents the [...] Total DLP (Dose-Length Product): 993.50 mGy.cm (accession [id number]),993.50 mGy.cm (accession [id number]). Please note: The reported valuerepresents the total [...] Total DLP (Dose-Length Product): 993.50 mGy.cm (accession [id number]), 993.50 mGy.cm (accession [id number]). Please note: The reported value represents the [...] Total DLP (Dose-Length Product): 993.50 mGy.cm (accession [id number]),993.50 mGy.cm (accession [id number]). Please note: The reported valuerepresents the total [...] Vazquez MD IMG CT PROCEDURES Final Result documented in this [...] documented as of this encounter Care Teams Health Services Coordinator Relationship Specialty Start Date End Date Efren Roy DO [address] [place] [address] PCP - General 03/04/23 Efren Roy DO [address] [place] [address] Pain Medicine 01/03/23 Rosa Maria Beltran APRN [address] [place] [address] [address] [place] [address] Nurse Practitioner Family Medicine 07/21/23 Bobby Vazquez MD 800 [facility] Saurav [address] [place] [address] Consulting Physician Medical Oncology 09/17/23 Cally Henderson PA [address] [facility] [address] [place] [address] Physician Bi Consultant Urology 09/17/23 documented as of this encounter
--- OUTSIDE RECORDS SUMMARY | 2024-07-14 13:00 | XMS_ITS | Encounter Summary ---
Author Organization [facility] Address [address] [place] [address] Care Team Providers Care Machinist Bench Name Role Phone Efren Roy DO Unavailable [phone] Efren Roy DO Primary Care Provider [phone] Rosa Maria Beltran APRN Unavailable [phone] Bobby Vazquez MD Unavailable Cally Henderson Unavailable [phone] Encounter Details Date Type Department Care Team (Latest Contact Info) Description 07/14/2024 1:00 PM EDT Clinical Support [facility] Multidisciplinary Oncology Clinic [address] [place] [address] Georgina Lucero, RN Malignant tumor of right ureter (CMS/HCC) Social [...] place to sleep or slept in a skilled nursing (including now)? No 02/28/2023 PHQ-9 Answer Date [...] any time in the past 12 m [facility], were you homeless or living in a skilled nursing (including now)? No 05/27/2024 CAGE ASSESSMENT Answer [...] drink first t tianna in the morning (EYE-COLOR SPRAYER) to steady your nerves or to get rid of a hangover? 0 02/27/2023 CAGE Questionnaire Score 0 023 Utilities Answer Date Recorded In the past 12 months has e electric, gas, oil, or water company threatened to shut off services in your home? No 05/27/2024 PHQ-2A Answer Date Recorded Depression Risk 0 04/30/2024 Sex and Gender Information Value Date Recorded Sex Assigned at Male 07/27/2024 6:43 PM EDT Legal Sex Male 6:40 PM EDT Gender Identity Male 07/27/2024 6:43 PM EDT Sexual Orientation Not on file documented as of this encounter Miscellaneous Notes * Progress Notes - Georgina Lucero, RN - 07/14/2024 1:00 PM EDT Port labs drawn documented in this encounter Plan of Treatment Upcoming Encounters Date Type Department Care Team (Late st Contact Info) Description 08/20/2024 9:30 AM EDT Office Visit [facility] Multidisciplinary Oncology Clinic [address] [place] [address] Sara Tesfaye APRN [address] [facility] [address] [phone] 08/27/2024 1:00 PM EDT Office Visit [facility] Multidisciplinary Oncology Clinic [address] [place] [address] Bobby Vazquez MD [address] [facility] [address] [address] 08/27/2024 1:00 PM EDT Clinical Support [facility] [address] [place] [address] 08/27/2024 2:30 PM EDT Appointment [facility] 2 [address] [place] [address] 09/17/2024 2:30 PM EDT Appointment [facility] [address] [place] [address] 10/08/2024 2:30 PM EDT Appointment [facility] [address] [place] [address] 10/19/2024 11:30 AM EDT Office Visit [facility] Multidisciplinary Oncology Clinic [address] [place] [address] Kym Romero, FLOOR NURSE [address] [facility] [address] [place] [address] 11/24/2024 11:00 AM EDT Office Visit [facility] [address] [place] [phone] Adal [place] MD [address] [place] [address] 12/15/2024 1:00 PM EDT Office Visit [facility] [address] [facility] [place] [address] Efren Fallon MD [address] [place] [address] 12/29/2024 9:30 AM EDT Clinical Support [facility] [address] [facility]nd [place] [phone] 12/29/2024 10:00 AM EDT Office Visit [facility] [address] [facility]nd [place] [address] Carlito Mccartney MD [address] [facility] [address] [place] [address] 03/23/2025 10:40 AM EST Office Visit [facility] [address] [facility]nd [place] [address] Arabella Romero, FLOOR NURSE [address] [place] [address] documented as of this encounter Procedures Procedure Name Priority Date/Time Associated Diagnosis Comments CBC WITH AUTO DIFFERENTIAL Routine 07/14/2024 10:09 AM EDT Malignant tumor of right ureter (CMS/HCC) COMPREHENSIVE METABOLIC PANEL, PLASMA Routine 07/14/2024 10:09 AM EDT Malignant tumor of right ureter (CMS/HCC) documented in this encounter Results * (ABNORMAL) Comprehensive Metabolic Panel, Plasma (07/14/2024 10:09 AM EDT) Glucose, Plasma 95 74 - 99 mg/dL 07/14/2024 11:00 AM EDT [facility] BUN, Plasma 14 8 - 23 mg/dL 07/14/2024 11:00 AM EDT [facility] Creatinine, Plasma 1.09 0.70 - 1.20 mg/dL 07/14/2024 11:00 AM EDT [facility] BUN/Creatinine Ratio 13 07/14/2024 11:00 AM EDT [facility] Sodium, Plasma 133(L) 136 - 145 mmol/L 07/14/2024 11:00 AM EDT [facility] Potassium, Plasma 4.4 3.6 - 4.9 mmol/L 07/14/2024 11:00 AM EDT [facility] Chloride, Plasma 97 97 - 107 mmol/L 07/14/2024 11:00 AM EDT [facility] CO2, Plasma 25 22 - 29 mmol/L 07/14/2024 11:00 AM EDT [facility] Anion Gap 11 6 - 16 mmol/L 07/14/2024 11:00 AM EDT [facility] Total Calcium, Plasma 9.9 8.9 - 10.2 mg/dL 07/14/2024 11:00 AM EDT [facility] Total Protein 7.2 6.3 - 7.9 g/dL 07/14/2024 11:00 AM EDT [facility] Albumin, Plasma 3.8 3.5 - 5.2 g/dL 07/14/2024 11:00 AM EDT [facility] AST, Plasma 40 10 - 50 U/L 07/14/2024 11:00 AM EDT [facility] ALT, Plasma 32 10 - 50 U/L 07/14/2024 11:00 AM EDT [facility] Alkaline Phosphatase, Plasma 113 40 - 115 U/L 07/14/2024 11:00 AM EDT [facility] Total Bilirubin, Plasma <0.2(L) 0.2 - 1.1 mg/dL 07/14/2024 11:00 AM EDT [facility] eGFRcr 77.7 mL/min/1.7 3m*2 07/14/2024 11:00 AM EDT [facility] Comment:Reported eGFRcr in m L/min/1.73m2 is based the CKD-EPI 2020 equation that does not use a race coefficient. Blood Blood sample taken from central line / Unknown (Port) Long-term Catheter / Unknown 07/14/2024 10:09 AM EDT 07/14/2024 10:28 AM EDT us Bobby Vazquez MD LAB BLOOD ORDERABLES Final Resul t [facility] [address] [place] [address] * (ABNORMAL) CBC and Differential (07/14/2024 10:09 AM EDT) WBC Count 7.19 3.70 - 10.30 10*3/uL LAB HEMATOLOGY METHOD 07/14/2024 10:50 AM EDT [facility] RBC Count 4.11(L) 4.60 - 6.10 10*6/uL LAB HEMATOLOGY METHOD 07/14/2024 10:50 AM EDT [facility] HGB 10.5(L) 13.7 - 17.5 g/dL LAB HEMATOLOGY METHOD 07/14/2024 10:50 AM EDT [facility] HCT 33.4(L) 40.0 - 51.0 % LAB HEMATOLOGY METHOD 07/14/2024 10:50 AM EDT [facility] Platelet Count 248 155 - 369 10*3/uL LAB HEMATOLOGY METHOD 07/14/2024 10:50 AM EDT [facility] MCV 81 79 - 98 fL LAB HEMATOLOGY METHOD 07/14/2024 10:50 AM EDT [facility] MCH 25.5(L) 26.0 - 32.0 pg LAB HEMATOLOGY METHOD 07/14/2024 10:50 AM EDT [facility] MCHC 31.4 30.7 - 35.5 g/dL LAB HEMATOLOGY METHOD 07/14/2024 10:50 AM EDT [facility] RDW 14.7(H) 11.5 - 14.5 % LAB HEMATOLOGY METHOD 07/14/2024 10:50 AM EDT [facility] MPV 9.4 8.8 - 12.5 fL LAB HEMATOLOGY METHOD 07/14/2024 10:50 AM EDT [facility] nRBC 0.0 <=0.0 per 100 WBCs LAB HEMATOLOGY METHOD 07/14/2024 10:50 AM EDT [facility] Differential Type Automated LAB HEMATOLOGY METHOD 07/14/2024 10:50 AM EDT [facility] Neutrophils % 69 % LAB HEMATOLOGY METHOD 07/14/2024 10:50 AM EDT [facility] Lymphocytes % 18 % LAB HEMATOLOGY METHOD 07/14/2024 10:50 AM EDT [facility] Monocytes % 10 % LAB HEMATOLOGY METHOD 07/14/2024 10:50 AM EDT [facility] Eosinophils % 1 % LAB HEMATOLOGY METHOD 07/14/2024 10:50 AM EDT [facility] Basophils % 1 % LAB HEMATOLOGY METHOD 07/14/2024 10:50 AM EDT [facility] Immature Granulocytes % 1 % LAB HEMATOLOGY METHOD 07/14/2024 10:50 AM EDT [facility] Neutrophils Absolute 5.00 1.60 - 6.10 10*3/uL LAB HEMATOLOGY METHOD 07/14/2024 10:50 AM EDT [facility] Lymphocytes Absolute 1.32 1.20 - 3.90 10*3/uL LAB HEMATOLOGY METHOD 07/14/2024 10:50 AM EDT [facility] Monocytes Absolute 0.71 0.30 - 0.90 10*3/uL LAB HEMATOLOGY METHOD 07/14/2024 10:50 AM EDT [facility] Eosinophils Absolute 0.07 0.00 - 0.50 10*3/uL LAB HEMATOLOGY METHOD 07/14/2024 10:50 AM EDT [facility] Basophils Absolute 0.04 0.00 - 0.10 10*3/uL LAB HEMATOLOGY METHOD 07/14/2024 10:50 AM EDT [facility] Immature Granulocytes Absolute 0.05 0.00 - 0.06 10*3/uL LAB HEMATOLOGY METHOD 07/14/2024 10:50 AM EDT [facility] Blood Blood sample taken from central line / Unknown (Port) Long-term Catheter / Unknown 07/14/2024 10:09 AM EDT 07/14/2024 10:40 AM EDT Narrative [facility] - 07/14/2024 10:50 AM EDT Therapeutic decision making should be based on absolute values, rather than percentages. us Bobby Vazquez MD LAB BLOOD ORDERABLES Final Resul t [facility] [address] [place] [address] documented in this encounter Visit Diagnoses Diagnosis [...] documented as of this encounter Care Teams Machinist Bench Relationship Specialty Start Date End Date Efren Roy DO [address] [place] [address] PCP - General 03/04/23 Efren Roy DO [address] [place] [address] Pain Medicine 01/03/23 Rosa Maria Beltran APRN [address] [facility] [address] [place] [address] Nurse Practitioner Family Medicine 07/21/23 Bobby Vazquez MD [address] [facility] [address] [place] [address] Consulting Physician Medical Oncology 09/17/23 Cally Henderson PA [address] [place] [address] Physician Coordinator Skill Training Program Urology 09/17/23 documented as of this encounter
--- OUTSIDE RECORDS SUMMARY | 2024-07-14 13:00 | XMS_ITS | Encounter Summary ---
Author Organization [facility] Address [address] [place] [address] Care Team Providers Care Printed Circuit Board Preassembler Name Role Phone Efren Roy DO Unavailable [phone] Efren Roy DO Primary Care Provider [phone] Rosa Maria Beltran PRIMER INSPECTOR Unavailable Bobby Vazquez MD Unavailable Cally Henderson Unavailable Reason for Visit * Reason Comments Follow-up Malignant tumor of r ight ureter Encounter Details Date Type Department Care Team (Late st Contact Info) Description 07/14/2024 1:00 PM EDT Office Visit [facility] Multidisciplinary Oncology Clinic [address] [place] [address] Kym Romero, PRIMER INSPECTOR [address] [facility] [address] [address] Malignant tumor of right ureter (CMS/HCC) (Primary [...] place to sleep or slept in a retirement (including now)? No 02/28/2023 PHQ-9 Answer Date [...] any time in the past 12 m [facility], were you homeless or living in a retirement (including now)? No 05/27/2024 CAGE ASSESSMENT Answer [...] drink first t tianna in the morning (EYE-CONTRACT ASSISTANT) to steady your nerves or to get rid of a hangover? 0 02/27/2023 CAGE Questionnaire Score 0 023 Utilities Answer Date Recorded In the past 12 months has th [employer], gas, oil, or water [employer] threatened to shut off services in your [...] unfortunately, he is not a candidate for [id number] due to the size of his regional [...] (08/27/2023) 11/28/2023 - 04/16/2024 Research Study Participant [id number]: Arm 1: Sacituzumab govitecan weekly x 2 Every 21 Days Plan Provider: Bobby Vazquez MD Treatment goal: [No plan goal] Line of treatment: [No plan line of treatment] Associated studies: [facility] RESEARCH PATIENT Past Medical, Surgical, Family and [...] Total DLP (Dose-Length Product): 993.50 mGy.cm (accession [id number]), 993.50 mGy.cm (accession [id number]). Please note: The reported value represents the [...] at the posterior bladder wall (series 3, [id number]). Stable enlarged pelvic lymph nodes as described [...] unfortunately, he is not a candidate for [id number] due to the size of his regional [...] pembro + EV - Currrently enrolled on [id number]: A Phase III Randomized Trial of Eribulin (NSC #[id number]) with or Without Gemcitabine Versus Standard of [...] - Will cont to monitor, followed by Meat Washer #Hyperphosphatemia - Phosphorus level 5.5 on 06/16/2024, [...] Description 08/20/2024 9:30 AM EDT Office Visit [facility] Multidisciplinary Oncology Clinic [address] [place] [address] Sara Tesfaye APRN 800 [facility] [address] [place] [address] 08/27/2024 1:00 PM EDT Office Visit [facility] Multidisciplinary Oncology Clinic [address] [place] [address] Bobby Vazquez MD 800 [facility] Shantel Cooper [facility] [address] [place] [address] 08/27/2024 1:00 PM EDT Clinical Support [facility] Multidisciplinary Oncology Clinic [address] [place] [address] 08/27/2024 2:30 PM EDT Appointment [facility] 2 [address] [place] [address] 09/17/2024 2:30 PM EDT Appointment [facility] Infusion Clinic 2 [address] [place] [address] 10/08/2024 2:30 PM EDT Appointment [facility] Infusion Clinic 2 [address] [place] [address] 10/19/2024 11:30 AM EDT Office Visit [facility] Multidisciplinary Oncology Clinic [address] [place] [phone] Kym Romero, PRIMER INSPECTOR 800 [facility] Shantel Cooper [facility] [address] [place] [address] 11/24/2024 11:00 AM EDT Office Visit [facility] Multidisciplinary Oncology Clinic [address] [place] [address] Adal [place] MD [address] [place] [address] 12/15/2024 1:00 PM EDT Office Visit [facility] [address] [place] [address] Efren Fallon MD 110 [facility] [address] [place] [address] 12/29/2024 9:30 AM EDT Clinical Support [facility] [address] [facility], 2nd [place] [address] 12/29/2024 10:00 AM EDT Office Visit [facility] [address] [facility], 2nd [place] [address] Carlito Mccartney MD [address] [facility] [address] [place] [address] 03/23/2025 10:40 AM EST Office Visit [facility] [address] [facility], 2nd [place] [address] Arabella Romero, PRIMER INSPECTOR [address] [place] [address] documented as of this encounter Results * (ABNORMAL) Comprehensive Metabolic Panel, Plasma (07/14/2024 10:09 AM EDT) Glucose, Plasma 95 74 - 99 mg/dL 07/14/2024 11:00 AM EDT [facility] BUN, Plasma 14 8 - 23 mg/dL 07/14/2024 11:00 AM EDT [facility] Creatinine, Plasma 1.09 0.70 - 1.20 mg/dL 07/14/2024 11:00 AM EDT [facility] BUN/Creatinine Ratio 13 07/14/2024 11:00 AM EDT [facility] Sodium, Plasma 133(L) 136 - 145 mmol/L 07/14/2024 11:00 AM EDT [facility] Potassium, Plasma 4.4 3.6 - 4.9 mmol/L 07/14/2024 11:00 AM EDT [facility] Chloride, Plasma 97 97 - 107 mmol/L 07/14/2024 11:00 AM EDT [facility] CO2, Plasma 25 22 - 29 mmol/L 07/14/2024 11:00 AM EDT [facility] Anion Gap 11 6 - 16 mmol/L 07/14/2024 11:00 AM EDT [facility] Total Calcium, Plasma 9.9 8.9 - 10.2 mg/dL 07/14/2024 11:00 AM EDT [facility] Total Protein 7.2 6.3 - 7.9 g/dL 07/14/2024 11:00 AM EDT [facility] Albumin, Plasma 3.8 3.5 - 5.2 g/dL 07/14/2024 11:00 AM EDT [facility] AST, Plasma 40 10 - 50 U/L 07/14/2024 11:00 AM EDT [facility] ALT, Plasma 32 10 - 50 U/L 07/14/2024 11:00 AM EDT [facility] Alkaline Phosphatase, Plasma 113 40 - 115 U/L 07/14/2024 11:00 AM EDT [facility] Total Bilirubin, Plasma <0.2(L) 0.2 - 1.1 mg/dL 07/14/2024 11:00 AM EDT [facility] eGFRcr 77.7 mL/min/1.7 3m*2 07/14/2024 11:00 AM EDT [facility] Comment:Reported eGFRcr in m L/min/1.73m2 is based the CKD-EPI 2020 equation that does not use a race coefficient. Blood Blood sample taken from central line / Unknown (Port) Long-term Catheter / Unknown 07/14/2024 10:09 AM EDT 07/14/2024 10:28 AM EDT us Bobby Vazquez MD LAB BLOOD ORDERABLES Final Resul t [facility] [address] [place] [address] * (ABNORMAL) CBC and Differential (07/14/2024 10:09 AM EDT) WBC Count 7.19 3.70 - 10.30 10*3/uL LAB HEMATOLOGY METHOD 07/14/2024 10:50 AM EDT [facility] RBC Count 4.11(L) 4.60 - 6.10 10*6/uL LAB HEMATOLOGY METHOD 07/14/2024 10:50 AM EDT [facility] HGB 10.5(L) 13.7 - 17.5 g/dL LAB HEMATOLOGY METHOD 07/14/2024 10:50 AM EDT [facility] HCT 33.4(L) 40.0 - 51.0 % LAB HEMATOLOGY METHOD 07/14/2024 10:50 AM EDT [facility] Platelet Count 248 155 - 369 10*3/uL LAB HEMATOLOGY METHOD 07/14/2024 10:50 AM EDT [facility] MCV 81 79 - 98 fL LAB HEMATOLOGY METHOD 07/14/2024 10:50 AM EDT [facility] MCH 25.5(L) 26.0 - 32.0 pg LAB HEMATOLOGY METHOD 07/14/2024 10:50 AM EDT [facility] MCHC 31.4 30.7 - 35.5 g/dL LAB HEMATOLOGY METHOD 07/14/2024 10:50 AM EDT [facility] RDW 14.7(H) 11.5 - 14.5 % LAB HEMATOLOGY METHOD 07/14/2024 10:50 AM EDT [facility] MPV 9.4 8.8 - 12.5 fL LAB HEMATOLOGY METHOD 07/14/2024 10:50 AM EDT [facility] nRBC 0.0 <=0.0 per 100 WBCs LAB HEMATOLOGY METHOD 07/14/2024 10:50 AM EDT [facility] Differential Type Automated LAB HEMATOLOGY METHOD 07/14/2024 10:50 AM EDT [facility] Neutrophils % 69 % LAB HEMATOLOGY METHOD 07/14/2024 10:50 AM EDT [facility] Lymphocytes % 18 % LAB HEMATOLOGY METHOD 07/14/2024 10:50 AM EDT [facility] Monocytes % 10 % LAB HEMATOLOGY METHOD 07/14/2024 10:50 AM EDT [facility] Eosinophils % 1 % LAB HEMATOLOGY METHOD 07/14/2024 10:50 AM EDT [facility] Basophils % 1 % LAB HEMATOLOGY METHOD 07/14/2024 10:50 AM EDT [facility] Immature Granulocytes % 1 % LAB HEMATOLOGY METHOD 07/14/2024 10:50 AM EDT [facility] Neutrophils Absolute 5.00 1.60 - 6.10 10*3/uL LAB HEMATOLOGY METHOD 07/14/2024 10:50 AM EDT [facility] Lymphocytes Absolute 1.32 1.20 - 3.90 10*3/uL LAB HEMATOLOGY METHOD 07/14/2024 10:50 AM EDT [facility] Monocytes Absolute 0.71 0.30 - 0.90 10*3/uL LAB HEMATOLOGY METHOD 07/14/2024 10:50 AM EDT [facility] Eosinophils Absolute 0.07 0.00 - 0.50 10*3/uL LAB HEMATOLOGY METHOD 07/14/2024 10:50 AM EDT [facility] Basophils Absolute 0.04 0.00 - 0.10 10*3/uL LAB HEMATOLOGY METHOD 07/14/2024 10:50 AM EDT [facility] Immature Granulocytes Absolute 0.05 0.00 - 0.06 10*3/uL LAB HEMATOLOGY METHOD 07/14/2024 10:50 AM EDT [facility] Blood Blood sample taken from central line / Unknown (Port) Long-term Catheter / Unknown 07/14/2024 10:09 AM EDT 07/14/2024 10:40 AM EDT Narrative [facility] - 07/14/2024 10:50 AM EDT Therapeutic decision making should be based on absolute values, rather than percentages. us Bobby Vazquez MD LAB BLOOD ORDERABLES Final Resul t [facility] [address] [place] [address] documented in this encounter Visit Diagnoses Diagnosis [...] documented as of this encounter Care Teams Printed Circuit Board Preassembler Relationship Specialty Start Date End Date Efren Roy DO [address] [place] [address] PCP - General 03/04/23 Efren Roy DO [address] [place] [address] Pain Medicine 01/03/23 Rosa Maria Beltran APRN [address] [facility] [address] [place] [address] Nurse Practitioner Family Medicine 07/21/23 Bobby Vazquez MD 800 [facility] [address] [place] [address] Consulting Physician Medical Oncology 09/17/23 Cally Henderson PA [address] [facility] [address] [place] [address] Physician Dimension Stone Quarry Supervisor Urology 09/17/23 documented as of this encounter
--- OUTSIDE RECORDS SUMMARY | 2024-07-23 11:29 | XMS_ITS | Encounter Summary ---
Author Organization Healthcare Address [address] [place] [address] Care Team Providers Care Rug Clipper Name Role Phone Efren Roy DO Unavailable [phone] Efren Roy DO Primary Care Provider [phone] Rosa Maria Beltran APRN Unavailable [phone] Bobby Vazquez MD Unavailable Cally Henderson Unavailable [phone] Reason for Visit * Reason Comments Vomiting * Auth/Cert (Routine) Specialty Diagnoses / Procedures Referred By Contmartha t Referred To Contact Diagnoses Nausea and vomiting, unspecified vomiting type [facility] [address] [place] [address] Phone: tel: [facility] Emergency Department [address] [place] [address] Phone: tel: Referral ID Status Reason Start Date Expiration Date Visits Re quested Visits Authorized [id number] 1 1 Encounter Details Date Type Department Care Team (Latest Contact Info) Description 07/23/2024 11:29 AM EDT - 07/24/2024 9:27 AM EDT Hospital Encounter [facility] Emergency [facility] [address] [place] [address] Tanna Grande MD [address] [place] [address] Elliot Frankel MD [address] [place] [address] Tomasz Pedraza DO [address] [place] [address] Radha Wong MD [address] [place] [address] Acute cystitis without hematuria (Primary Dx); Nausea and vomiting, unspecified vomiting type; Hyponatremia; Malignant neoplasm of urinary bladder, unspecified site (CMS/HCC) Discharge Disposition: Home or Self Care [...] any time in the past 12 [facility], were you homeless or living in a [...] drink first t tianna in the morning (EYE-OVEN HEATER) to steady your nerves or to get [...] Sign Reading Time Taken Comments Blood Pressure 107/69 07/24/2024 9:19 AM EDT Pulse 82 07/24/2024 9:19 AM EDT Temperature 36.6 C (97.9 F) 07/24/2024 9:19 AM EDT Respiratory Rate 14 07/24/2024 9:19 AM EDT Oxygen Saturation 98% 07/24/2024 9:19 AM EDT Inhaled Oxygen Concentration - - Weight 80.7 kg (178 lb) 07/23/2024 10:51 AM EDT Height 177.8 cm (5' 10 ) 07/23/2024 10:51 AM EDT Body Mass Index 25.54 07/23/2024 10:51 AM EDT documented in this encounter Functional Status * Calculated C-SSRS Risk Score (Lifetime/Recent) Answer Date of Assessment Author No Risk Indicated 07/23/2024 9:57 PM EDT Lazaro Arreola RN * Question Answer Date of Assessment Author 1. Wish to be (Past 1 Month) No 025 9:57 PM EDT Jewel Arreola RN 2. Non-Specific Active Suici katie Thoughts (Past 1 Month) No 07/23/2024 9:57 PM EDT Jewel Arreola RN 6. Suicidal Behavior (Lifetime) No 9:57 PM EDT Jewel Arreola RN documented as of this encounter Discharge Instructions * Discharge Instructions* Jg Newby MD - 07/23/2024 8:30 PM EDT You were admitted to ED OBS for concerns of persistent nausea and vomiting with a possible infection. We will be discharging you with cefadroxil to take for 10 more days for antibiotic treatment. Please follow up with your cancer doctor as soon as possible to discuss starting your chemotherapy medication. You also need to follow with Urology to have your stent replaced. This is on 6/27/25. documented in this encounter Medications at Time of Discharge [...] by mouth 2 (two) times a day. 57374 mL 5 06/16/2024 ondansetron ODT (Zofran-ODT) 4 [...] a day as needed for muscle spasms. amoxicillin (Amoxil) 500 MG capsuleIndications: Acute cystitis without hematuria Take 1 capsule by mouth 3 times a day for 10 days. 30 capsule 07/27/2024 5 cefadroxil (Duricef) 500 MG capsuleIndications: Acute cystitis without hematuria Take 2 capsules by mouth 2 times a day for 10 days. 40 capsule 07/24/2024 5 hydrOXYzine pamoate (Vistaril) 25 MG capsule Take 1 capsule (25 mg) by mouth 3 (three) times a day if needed for anxiety. 30 capsule 02/27/2024 5 OLANZapine (ZyPREXA) 10 MG tablet Take 1 tablet by mouth nightly. oxybutynin XL (Ditropan-XL) 10 MG 24 hr [...] encounter Miscellaneous Notes * Progress Notes - Shital Campo MD - 07/24/2024 9:27 AM EDT [facility] Urology Inpatient Progress Note Primary Attending: Adal Franklin MD Procedure(s): None SUBJECTIVE: He feels much better this morning and has been able to eat and drink without issue. PHYSICAL EXAM: Temp: [36.3 ??C (97.4 ??F)-37.1 ??C (98.7 ??F)] 36.6 ??C (97.9 ??F) Heart Rate: [59-105] 82 Resp: [10-17] 14 BP: (97-124)/(56-86) 107/69 SpO2: [92 %-100 %] 98 % I O Shift I O 24Hrs LDAs I/O this shift: In: - Out: 800 [Urine:800] I/O last 3 completed shifts: In: 2340 (29 mL/kg) [P.O.:240; I.V.:1999 (24.8 mL/kg); IV Piggyback:100] Out: 2089 (25.9 mL/kg) [Urine:2089 (0.7 mL/kg/hr)] Weight: 80.7 kg GEN: NAD HEENT: NCAT, EOMI RESP: Equal bilateral chest rise, normal work of breathing CV: Regular rate, appears well perfused ABD: Nondistended : No CVA tenderness EXT: No gross deformities MSK: Full ROM in BL UE NEURO: No focal deficits, alert and oriented PSYCH: Normal mood and affect LABS: Results from last 7 days Lab Units 07/24/24 0406 WBC 10*3/uL 8.94 HEMOGLOBIN g/dL 9.2* HEMATOCRIT % 28.2* PLATELETS 10*3/uL 203 Results from last 7 days Lab Units 07/24/24 0406 SODIUM mmol/L 138 POTASSIUM mmol/L 4.1 CHLORIDE mmol/L 102 CO2 mmol/L 26 BUN mg/dL 14 CREATININE mg/dL 1.15 EGFR mL/min/1.73m*2 72.9 GLUCOSE mg/dL 100* CALCIUM mg/dL 9.3 Results from last 7 days Lab Units 07/23/24 1338 COLOR UA Dark Yellow SPEC GRAV U 1.008 PH UA 6.5 PROTEIN UR mg/dL 100* GLUCOSE UA mg/dL Negative KETONES UA mg/dL Negative LEUKOCYTES UA Trace* NITRITE UA Positive* RBC, URINE /HPF 4 - 10* WBC, URINE /HPF 0 - 5 SQUAMOUS /HPF 0 - 2 BACTERIA UR HPF Negative IMAGING: No new imaging HOSPITAL PROBLEM LIST: 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 Due to his bulky LAD, he has received right ureteral stent exchanges every 6months with his next one due on 08/27/24. On CT he does have mild worsening of his right hydronephrosis, but his stent appears to be in an appropriate position. He did have an CARLOS with a creatinine of1.43 from a normal baseline, but this has since improved after PO and IV hydration. This indicates his CARLOS was due to dehydration from frequent emesis as opposed to stent failure given the lack of hydronephrosis on his scan from 07/14/24. He also had signs of possible infection on his UA and a urineculture is pending. As such, there is no emergent need to exchange his stent, and this can be done at his previously scheduled time. PLAN: - Keep scheduled stent exchange for 08/27 - Recommend discharging with antibiotics to treat a possible UTI - Ok to discharge from a urologic perspective Shital Campo MD [employer] [facility] PGY-6 Cosigned by Lucille Crockett MD at 07/24/2024 3:50 PM EDT Associated attestation - Lucille Crockett MD - 07/24/2024 3:50 PM EDT I saw and evaluated the patient with the resident/fellow. I discussed the case with the resident/fellow and agree with the findings and plan as documented. * Jg Garza MD - 07/24/2024 9:13 AM EDT Images from the original note were not included. [id number] Bladder Infection, Male (Adult) You have a bladder infection. Pee (urine) is normally free of bacteria. But bacteria can get into the urinary tract from the skinaround the rectum. Or it may travel in the blood from other parts of the body. This is called a urinary tract infection (UTI). An infection can occur anywhere in the urinary tract. It could be in a kidney (pyelonephritis) or in the bladder (cystitis) and urethra (urethritis). The urethra is the tube that drains pee from the bladder through the tip of the penis. The most common place for a UTI is in the bladder. This is called a bladder infection. Most bladderinfections are easily treated. They aren't serious unless the infection spreads up to the kidney. The terms bladder infection, UTI, and cystitis are often used to describe the same thing. But they aren?t always the same. Cystitis is an inflammation of the bladder. The most common cause of cystitis is an infection. Keep in mind: ?? Infections in pee are called UTIs. ?? Cystitis is often caused by a UTI. ?? Not all UTIs and cases of cystitis are bladder infections. ?? Bladder infections are the most common type of cystitis. Symptoms of a bladder infection The infection causes inflammation in the urethra and bladder. This inflammation causes many of the symptoms. The most common symptoms of a bladder infection are: ?? Pain or burning feeling when peeing ?? Having to go more often than normal ?? Feeling like you need to go right away ?? Only a small amount of pee comes out ?? Blood in your pee ?? Discomfort in your belly (abdomen), often in the lower belly, above the pubic bone ?? Cloudy, strong, or bad-smelling pee ?? Unable to pee (urinary retention) ?? Urinary incontinence ?? Fever ?? Loss of appetite Older adults may also feel confused. Causes of a bladder infection Bladder infections aren't contagious. You can't get one from someone else, from a toilet seat, or from sharing a bath. The most common cause of bladder infections is bacteria from the bowels. The bacteria get onto the skin around the opening of the urethra. From there they can get into the pee and travel up to the bladder. This causes inflammation and an infection. This often happens because of: ?? An enlarged prostate ?? Poor cleaning of the genitals ?? Procedures that put a tube in your bladder, such as a Ryan catheter ?? Bowel incontinence ?? Older age ?? Not emptying your bladder (the pee stays there, giving the bacteria a chance to grow) ?? Dehydration (this lets pee stay in the bladder longer) ?? Constipation (this can cause the bowels to push on the bladder or urethra and keep the bladder from emptying) Treatment Bladder infections are treated with antibiotics. They often clear up quickly without complications.Treatment helps prevent a more serious kidney infection. Medicines Medicines can help in treating a bladder infection: ?? You may have been given phenazopyridine to ease burning when you pee. It will cause your pee to be bright orange. It can stain clothing. ?? You may have been prescribed antibiotics. Take this medicine until you have finished it, even ifyou feel better. Taking all of the medicine will make sure the infection has cleared. You can use acetaminophen or ibuprofen for pain, fever, or discomfort, unless another medicine was prescribed. You can also alternate them. Or you can use both together. They work differently and area different class of medicines, so taking them together is not an overdose. If you have chronic liver or kidney disease, talk with your healthcare provider before using these medicines. Also talk with your provider if you?ve had a stomach ulcer or GI (gastrointestinal) bleeding or are taking blood thinner medicines. Home care Here are some guidelines to help you care for yourself at home: ?? Drink plenty of fluids, unless your healthcare provider told you not to. Fluids will prevent dehydration and flush out your bladder. ?? Use good personal hygiene. Wipe from front to back after using the toilet, and clean your penis regularly. If you aren?t circumcised, retract the foreskin when cleaning. ?? Pee more often. Don?t try to hold it in for long periods of time, if possible. ?? Wear loose-fitting clothes and cotton underwear. Don't wear tight-fitting pants. This helps keepyou clean and dry. ?? Change your diet to prevent constipation. This means eating more fresh foods and more fiber, andless junk and fatty foods. ?? Don't have sex until your symptoms are gone. ?? Don't have caffeine, alcohol, and spicy foods. These can irritate the bladder. Follow-up care Follow up with your healthcare provider, or as advised, if all symptoms haven't cleared up in 5 days. It's important to keep your follow-up appointment. You can talk with your provider to see if you need more tests of the urinary tract. This is especially important if you have infections that keep coming back. If a culture was done, you'll be told if your treatment needs to be changed. If directed, you can call to find out the results. If X-rays were taken, you'll be told of any findings that may affect your care. Call 911 Call 911 if any of these occur: ?? Trouble breathing ?? Trouble waking up ?? Feeling confused ?? Fainting or loss of consciousness ?? Fast heart rate When to get medical advice Call your healthcare provider right away if any of these occur: ?? Fever of 100.4??F (38??C) or higher, or as advised by your provider ?? Your symptoms don?t improve after 2 days of treatment ?? Back or belly pain that gets worse ?? Repeated vomiting, or you aren?t able to keep medicine down ?? Weakness or dizziness Last Reviewed Date: 2021 00:00:00 ?? [id number] [employer]. All rights reserved. This information is not intended as a substitute for professional medical care. Always follow your healthcare professional's instructions. * Discharge Summary - Jg Newby MD - 07/24/2024 9:00 AM EDT Hospitalization Admit Date/Time: 07/23/2024 11:29 AM Admitting Attending: Discharge Date: 07/24/2024 Discharge Attending Physician: Radha Wong MD PCP name and Address: Efren Roy DO [address] [place] [address] / [place] [address] Referring provider name and address: No referring provider defined for this encounter. Chief Concern, Brief History of Present Illness, and Hospital Course Adrián Goode is a 59 y.o. male with PMH significant for bladder cancer, HLD, HTN, and right portacath placement admitted to ED Observation for CARLOS and complicated UTI. #Cystitis ISO Stage IV Bladder Cancer #Inability to tolerate PO (improving) - Patient presents with history of right ureteral stent and hx of metastatic bladder cancer - Following with hematology oncology with previous infusion treatments, planned to start new chemotherapy today but has had worsening n/v in the past 24 hours - Worsening lower abdominal pain and new inability to tolerate oral intake - Labs notable for elevated WBC (however started on steroids 1 day prior for heme/onc history) - UA shows nitrites but no bacteria, urology recommends no acute urologic intervention and outpatient stent replacement - On ED Obs evaluation with IV fluids and IV pain regimen, patient has been shown to tolerate oral hydration - CT abd showing bilateral mild hydroureteronephrosis, left periureteral stranding and bladder wallthickening Intervention: - Admit to ED OBS for overnight management of cystitis symptoms in the setting of poor oral intake - given ceftriaxone 2 g in ED, fluids End results: - patient feeling much better, labs improved - will send home with cefadroxil 1000 mg BID for 10 days to complete treatment for complicated UTI - follow up with your #Pre-Renal (likely) CARLOS, resolved - Patient presents with Cr of 1.4, greater than baseline of 1 - Notably has had vomiting/nausea and reduced intake for 24 hours - Likely etiology is pre-renal, some concern of obstructive pathology in the setting of metastatic cancer and bladder cancer - Hydronephrosis worsening bilaterally in CT imaging of the kidneys - Patient now tolerating oral intake, s/p 2L LR in ED - Cr. Improved to baseline 1.15 on discharge Medication changes: Cefadroxil 1000 mg BID for 10 days Do not take any more dexamethasone due to not getting chemo, discuss with your oncologist prior to starting docetaxel at later time Surgeries and Procedures Medication List .. cefadroxil 500 MG capsule Commonly known as: Duricef Take 2 capsules by mouth 2 times a day for 10 days. . dexamethasone 4 MG tablet Commonly known as: Decadron Take 2 tablets by mouth 2 times a day. Start day prior to docetaxel and continue for a total of 3 days. dronabinol 5 MG capsule Commonly known as: Marinol Take 1 capsule by mouth 2 times a day before meals. erdafitinib 4 MG tablet Commonly known as: Balversa Take 2 tablets (8 mg total) by mouth daily. Take with or without food. Do not crush, chew, or dissolve. Swallow tablet(s) whole. fluticasone 50 MCG/ACT nasal spray Commonly known as: Flonase Administer 1 spray into each nostril 1 (one) time each day. Shake gently. Before first use, prime pump. After use, clean tip and replace cap. gabapentin 800 MG tablet Commonly known as: Neurontin Take 1 tablet by mouth 3 (three) times a day. hydrOXYzine pamoate 25 MG capsule Commonly known as: Vistaril Take 1 capsule (25 mg) by mouth 3 (three) times a day if needed for anxiety. loperamide 2 MG tablet Commonly known as: Imodium A-D 2 mg by mouth every 2 hours as needed for diarrhea; Not to exceed 16 mg in 24 hours magic mouthwash BLM suspension Use 15 mL in the mouth or throat 4 (four) times a day as needed for mucositis (swish and swallow prn for mouth sores). montelukast 10 MG tablet Commonly known as: Singulair Take 1 tablet by mouth nightly. morphine CR 15 MG 12 hr tablet Commonly known as: MS Contin TAKE 1 TABLET 2 TIMES EACH DAY DO NOT CRUSH, CHEW OR SPLIT. mupirocin 2 % ointment Commonly known as: Bactroban Put muprocin in bilateral nares twice daily for 7 days nepro/carb steady Take 237 mL by mouth 2 (two) times a day. OLANZapine 10 MG tablet Commonly known as: ZyPREXA Take 1 tablet by mouth nightly. ondansetron ODT 4 MG disintegrating tablet Commonly known as: Zofran-ODT Take 2 tablets (8 mg) by mouth every 8 (eight) hours. Alternate with compazine oxybutynin XL 10 MG 24 hr tablet Commonly known as: Ditropan-XL Take 1 tablet (10 mg) by mouth 1 (one) time each day. Do not crush, chew, or split. oxyCODONE 10 MG immediate release tablet Commonly known as: Roxicodone Take 1 tablet by mouth 4 (four) times a day as needed. pantoprazole 40 MG EC tablet Commonly known as: Protonix Take 1 tablet by mouth daily. polyethylene glycol 17 GM/SCOOP powder Commonly known as: Miralax Take 17 g by mouth daily. prochlorperazine 10 MG tablet Commonly known as: Compazine Take 1 tablet (10 mg) by mouth every 6 (six) hours if needed for nausea or vomiting. senna-docusate sodium 8.6-50 MG tablet Commonly known as: Senokot-S Take 1 tablet by mouth 1 (one) time each day. tamsulosin 0.4 MG 24 hr capsule Commonly known as: Flomax TAKE 1 CAPSULE BY MOUTH ONCE A DAY WITH DINNER Tirosint 125 MCG capsule Generic drug: levothyroxine Take 1 capsule by mouth daily before breakfast. tiZANidine 2 MG tablet Commonly known as: Zanaflex Take 1 tablet by mouth 3 (three) times a day as needed for muscle spasms. Where to Get Your Medications These medications were sent to [facility] - [place], [place] - [address] [facility] [id number] cefadroxil 500 MG capsule Discharge Diagnosis Medical Problems Post Discharge Instructions You were admitted to ED OBS for concerns of persistent nausea and vomiting with a possible infection. We will be discharging you with cefadroxil to take for 10 more days for antibiotic treatment. Please follow up with your cancer doctor as soon as possible to discuss starting your chemotherapy medication. You also need to follow with Urology to have your stent replaced. This is on 08/27/24. 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 HENT: Head: Normocephalic and atraumatic. Cardiovascular: Rate and Rhythm: Normal rate and regular rhythm. Pulses: Normal pulses. Heart sounds: Normal heart sounds. Pulmonary: Effort: Pulmonary effort is normal. Breath sounds: Normal breath sounds. Abdominal: Tenderness: There is abdominal tenderness. Musculoskeletal: Right lower leg: No edema. Left lower leg: No edema. Neurological: Mental Status: He is alert and oriented to person, place, and time. Discharge Disposition/Condition Disposition: Home Condition: Stable (s/sx potential problems absent or manageable) I spent >30 minutes of patient care and instruction time in preparation for this discharge. Jg Newby MD, PGY-2 Internal Medicine Pager: [phone], Epic chat preferred Cosigned by Radha Wong MD at 07/31/2024 7:31 AM EDT Associated attestation - Radha Wong MD - 07/31/2024 7:31 AM EDT I saw and evaluated the patient with the resident/fellow. I discussed the case with the resident/fellow and agree with the findings and plan as documented. I spent 35 minutes of patient care and instruction time in preparation for this discharge. * ED Notes - Cal Stanford - 07/23/2024 10:55 PM EDT Assumed care of pt at this time. Pt is AAOX4, on CCM, VS stable and WNL. Side rails up x2, call light within reach. No needs expressed/identified at this time. [facility] Cal Stanford 07/23/24 9024 * H&P - Ave Hoffman MD - 07/23/2024 7:19 PM EDT Images from the original note were not included. EB OBS History and Physical Note Patient: Adrián Goode Admit Date: 07/23/2024 Admitting Attending: Elliot Frankel MD Chief Complaint: Chief Complaint Patient presents with Vomiting HPI: Adrián Goode is a 59 y.o. male with PMH significant for bladder cancer, HLD, HTN, and right portacath placement presenting for nausea and vomiting. Per ED resident report, patient notes symptoms of nausea and vomiting that began 07/22/24 in the PM.Patient has had vomiting overnight as well as 3 episodes of vomiting throughout 07/23/24 (today). His PO has been difficult, and he also notes that he was going to start a new chemotherapy medication today at his infusion clinic. Patient endorses symptoms of burning with urination as well as constipation, and also endorses a history of right nephroureteral stent that has not been exchanged in an extended period of time (last planned August 2024). Steroids were also started 07/22/24. On evaluation by ED OBS team, patient notes that he has some improved PO with fluid hydration here in ED. He otherwise endorses pain, but notably, patient has chronic pain medications including oral morphine and gabapentin that he has not been able to tolerate orally since yesterday. Dysuria remains. ED Course: Vitals POA: 109/72, 98.7F, 73 HR, 16 RR, 99% O2. Lab work pertinent for Cr to 1.43 (baseline 1), Na of 129 (baseline 135), chloride 93 (baseline 100), blood in urine with positive nitritesand negative bacteria, WBC of 14. ED Imaging conducted and significant for, CT abdomen revealing mild left hydroureteronephrosis with adjacent periureteral stranding and increased from previous- alongside this, bladder wall thickening with adjacent stranding and trace fluid. Moderate right hydroureteronephrosis has also increased in interval size from last time as well. Additional workup/management in ED includes but not limited to: IV morphine for pain, Rocephin 2g IV. ROS: Review of Systems As Per HPI History: Medical History[1] Problem List[2] Surgical History[3] Family History[4] Social History Socioeconomic History Marital status: Significant Other Spouse name: Not on file Number of children: Not on file Years of education: Not on file Highest education level: Not on file Occupational History Not on file Tobacco Use Smoking status: Never Passive exposure: Yes Smokeless tobacco: Current Types: Snuff Tobacco comments: 10 x daily Vaping Use Vaping status: Never Used Substance and Sexual Activity Alcohol use: Not Currently Comment: Alcoholic Drinks/day: History of alcohol use Drug use: Not Currently Comment: Drug use: History of drug use Sexual activity: Not Currently Partners: Female Other Topics Concern Not on file Social History Narrative Not on file Social Drivers of Health Financial Resource Strain: Not on file Food Insecurity: No Food Insecurity (05/27/2024) Hunger Vital Sign Worried About Running Out of Food in the Last Year: Never true Ran Out of Food in the Last Year: Never true Transportation Needs: No Transportation Needs (05/27/2024) PRAPARE - Transportation Lack of Transportation (Medical): No Lack of Transportation (Non-Medical): No Physical Activity: Not on file Stress: Not on file Social Connections: Not on file Intimate Partner Violence: Not At Risk (05/27/2024) Humiliation, Afraid, Rape, and Kick questionnaire Fear of Current or Ex-Partner: No Emotionally Abused: No Physically Abused: No Sexually Abused: No Housing Stability: Low Risk (05/27/2024) Housing Stability Vital Sign Unable to Pay for Housing in the Last Year: No Number of Times Moved in the Last Year: 0 Homeless in the Last Year: No Allergies[5] Medications: Home Medications: Current Outpatient Medications Medication Instructions dexamethasone (DECADRON) 8 mg, Oral, 2 times daily, Start day prior to docetaxel and continue for atotal of 3 days. dronabinol (MARINOL) 5 mg, Oral, 2 times daily before meals erdafitinib (BALVERSA) 8 mg, Oral, Daily, Take with or without food. Do not crush, chew, or dissolve. Swallow tablet(s) whole. fluticasone (Flonase) 50 MCG/ACT nasal spray 1 spray, Each Nostril, Daily, Shake gently. Before first use, prime pump. After use, clean tip and replace cap. gabapentin (NEURONTIN) 800 mg, 3 times daily hydrOXYzine pamoate (VISTARIL) 25 mg, Oral, 3 times daily PRN loperamide (Imodium A-D) 2 MG tablet 2 mg by mouth every 2 hours as needed for diarrhea; Not to exceed 16 mg in 24 hours magic mouthwash BLM (FIRST-Mouthwash) suspension 15 mL, Mouth/Throat, 4 times daily PRN montelukast (SINGULAIR) 10 mg, Oral, Nightly morphine CR (MS Contin) 15 MG 12 hr tablet TAKE 1 TABLET 2 TIMES EACH DAY DO NOT CRUSH, CHEW OR SPLIT. mupirocin (Bactroban) 2 % ointment Put muprocin in bilateral nares twice daily for 7 days Nutritional Supplements (nepro/carb steady) 237 mL, Oral, 2 times daily OLANZapine (ZyPREXA) 10 MG tablet Take 1 tablet by mouth nightly. ondansetron ODT (ZOFRAN-ODT) 8 mg, Oral, Every 8 hours scheduled, Alternate with compazine oxybutynin XL (DITROPAN-XL) 10 mg, Oral, Daily, Do not crush, chew, or split. oxyCODONE (ROXICODONE) 10 mg, 4 times daily PRN pantoprazole (Protonix) 40 MG EC tablet Take 1 tablet by mouth daily. polyethylene glycol (Miralax) 17 GM/SCOOP powder Take 17 g by mouth daily. prochlorperazine (COMPAZINE) 10 mg, Oral, Every 6 hours PRN senna-docusate sodium (Senokot-S) 8.6-50 MG tablet 1 tablet, Oral, Daily tamsulosin (Flomax) 0.4 MG 24 hr capsule TAKE 1 CAPSULE BY MOUTH ONCE A DAY WITH DINNER Tirosint 125 mcg, Oral, Daily before breakfast tiZANidine (ZANAFLEX) 2 mg, 3 times daily PRN Current Medications: cefTRIAXone, 2 g, Intravenous, Once [START ON 07/24/2024] dronabinol, 5 mg, Oral, BID AC fluticasone, 1 spray, Each Nostril, Daily gabapentin, 800 mg, Oral, TID [START ON 07/24/2024] levothyroxine, 125 mcg, Oral, q AM montelukast, 10 mg, Oral, Nightly morphine CR, 15 mg, Oral, BID morphine, 4 mg, Intravenous, Once OLANZapine, 10 mg, Oral, Nightly oxybutynin XL, 10 mg, Oral, Daily oxyCODONE, 10 mg, Oral, q6h ERASTO pantoprazole, 40 mg, Oral, Daily polyethylene glycol, 17 g, Oral, Daily sodium chloride, 10 mL, Intravenous, q12h tamsulosin, 0.4 mg, Oral, Daily PRN medications: ondansetron, ondansetron ODT, polyethylene glycol, senna, Insert peripheral IV AND Saline lock IV AND sodium chloride AND sodium chloride Objective: Visit Vitals BP 108/67 Pulse 73 Temp 36.4 ??C (97.6 ??F) Resp 16 Ht 1.778 m (5' 10 ) Wt 80.7 kg (178 lb) SpO2 99% BMI 25.54 kg/m?? Smoking Status Never BSA 2 m?? Physical Exam Constitutional: Appearance: He is ill-appearing. HENT: Right Ear: External ear normal. Left Ear: External ear normal. Nose: No congestion. Mouth/Throat: Mouth: Mucous membranes are dry. Eyes: General: Scleral icterus present. Pulmonary: Effort: No respiratory distress. Abdominal: Tenderness: There is abdominal tenderness (Diffusely across lower abdomen). Skin: General: Skin is warm and dry. Neurological: Mental Status: He is alert. Mental status is at baseline. Laboratory: Heme: Lab Results Component Value Date WBC 14.74 (H) 07/23/2024 RBC 4.20 (L) 07/23/2024 HGB 10.9 (L) 07/23/2024 HCT 32.8 (L) 07/23/2024 PLT 243 07/23/2024 MCV 78 (L) 07/23/2024 MCH 26.0 07/23/2024 MCHC 33.2 07/23/2024 RDW 14.9 (H) 07/23/2024 NRBC 0.0 07/23/2024 Lab Results Component Value Date WBC 14.74 (H) 07/23/2024 NEUTOPHILPCT 85 07/23/2024 LYMPHOPCT 8 07/23/2024 MONOPCT 6 07/23/2024 EOSPCT 0 07/23/2024 Coagulation: No results found for: INR , PT , PTT , CLFGN Renal: Lab Results Component Value Date NA 129 (L) 07/23/2024 K 4.9 07/23/2024 CL 93 (L) 07/23/2024 CO2 23 07/23/2024 BUN 17 07/23/2024 CREATININE 1.43 (H) 07/23/2024 GLUCOSE 115 (H) 07/23/2024 CALCIUM 9.6 07/23/2024 MG 1.8 (L) 07/23/2024 PHOS 2.6 07/23/2024 Liver: Lab Results Component Value Date AST 40 07/23/2024 ALT 37 07/23/2024 BILITOT <0.2 (L) 07/23/2024 Glucose: No results found for: PGLU Lab Results Component Value Date HGBA1C 5.5 04/09/2023 Microbiology Results Procedure Component Value Units Date/Time Urine culture- (clean catch) [[id number]] Collected: 07/23/24 1536 Order Status: Sent Specimen: Urine, Clean Catch Updated: 07/23/24 1617 ? Imaging: CT Abdomen Pelvis w IV Contrast Result Date: 07/23/2024 Redemonstration extensive adenopathy about the abdomen and pelvis as above concerning for metastatic lymphadenopathy, similar over the short-term interval. Redemonstration right ureteral stent in situ. Interval increased moderate right hydroureteronephrosis to the level of the mid ureter with associated urothelial hyperenhancement. Ureteral stenosis or underlying lesion not excluded. Persistent right periureteral stranding and trace fluid. Mild left hydroureteronephrosis with adjacent periureteral stranding, increased over the interval. Borderline bladder wall thickening with adjacent stranding and trace fluid, correlate for cystitis/urinary tract infection. Mild thickening distal thoracic esophagus, nonspecific, correlate for reflux and reflux esophagitis. CRITICAL RESULT: No. COMMUNICATION: Per this written report. Drafted by Vladimir Folres MD on 07/23/2024 2:26 PM Final report signed by Vladimir Flores MD on 07/23/2024 2:40 PM Assessment & Plan: Adrián Goode is a 59 y.o. male with PMH significant for bladder cancer, HLD, HTN, and right portacath placement admitted to ED Observation for CARLOS and complicated UTI. #Cystitis ISO Stage IV Bladder Cancer #Inability to tolerate PO (improving) - Patient presents with history of right ureteral stent and hx of metastatic bladder cancer - Following with hematology oncology with previous infusion treatments, planned to start new chemotherapy today but has had worsening n/v in the past 24 hours - Worsening lower abdominal pain and new inability to tolerate oral intake - Labs notable for elevated WBC (however started on steroids 1 day prior for heme/onc history) - UA shows nitrites but no bacteria, urology recommends no acute urologic intervention and outpatient stent replacement - On ED Obs evaluation with IV fluids and IV pain regimen, patient has been shown to tolerate oral hydration PLAN: - Admit to ED OBS for overnight management of cystitis symptoms in the setting of poor oral intake - Continue Rocephin 2g IV q24hr, plan to discharge with Cefadroxil 1g BiD for 10 days of total treatment - q4hr vitals, morning CBC/CMP/Mag/Phos - Oral pain regimen: home regimen of Oxy 10mg q6hr scheduled, MS Contin 15mg BiD, Gabapentin 800mg TiD - Hold chemotherapy agents at this time, continue drobanbinol 5mg BiD for nausea, as well as [id number] IV q6hr PRN - Continue Flomax 0.4mg daily, Oxybutynin 10mg daily - Prompt f/u outpatient with oncology for re-establishing oncological drugs #Pre-Renal (likely) CARLOS - Patient presents with Cr of 1.4, greater than baseline of 1 - Notably has had vomiting/nausea and reduced intake for 24 hours - Likely etiology is pre-renal, some concern of obstructive pathology in the setting of metastatic cancer and bladder cancer - Hydronephrosis worsening bilaterally in CT imaging of the kidneys - Patient now tolerating oral intake, s/p 2L LR in ED PLAN: - Maintenance fluids at 1x, 120ml/hr for 12 hours - Urine sodium, urine creatinine ordered and pending - Re-evaluate with morning CMP - Encourage PO as tolerated #Chronic Conditions - Seasonal allergies: Singular 10mg nightly - Insomnia: Zyprexa 10mg nightly - Hypothyroidism: Synthroid 125mcg daily in mornings - GERD: Continue Protonix 40mg daily - Opioid induced constipation: Miralax 17g daily, Senna 8.6mg nightly PRN F: Regular E: Monitor and replace as necessary N: Regular GI: no PPI DVT prophylaxis: pLOV Lines and Tubes: pIV CODE: Full Code SOCIAL: [facility] PT/OT: Not indicated at this time Ave Hoffman MD PGY-2 Family Medicine [1] Past Medical History: Diagnosis Date Acute kidney failure, unspecified (CMS/HCC) 02/28/2023 Adverse effect of anesthesia aspirated during colonoscopy few yrs. ago - also DDD cervical area Bladder cancer (CMS/HCC) 12/2022 Cancer (CMS/HCC) thyroid - surgery only Cervicalgia Neck pain Congested nose Cough mild cough, mild chest congestion, started week ago from 02/16/24, denies fever, fatigue DDD (degenerative disc disease), lumbar and cervical Dental disease endentulous GERD (gastroesophageal reflux disease) Hyperlipidemia Hypertension Hypothyroidism Personal history of other diseases of the circulatory system History of hypertension Personal history of other diseases of the digestive system History of esophageal reflux Personal history of other diseases of the musculoskeletal system and connective tissue History of backache Personal history of other endocrine, nutritional and metabolic disease History Of Hypercholesterolemia [2] Patient Active Problem List Diagnosis Malignant tumor of right ureter (CMS/HCC) Malignant neoplasm of urinary bladder (CMS/HCC) Nausea Weight loss Flank pain Bilateral low back pain with right-sided sciatica Complex care coordination Dehydration Tobacco use disorder Cervical radicular pain Essential (primary) hypertension Gastro-esophageal reflux disease without esophagitis Hyperlipidemia, unspecified Hypertensive chronic kidney disease with stage 1 through stage 4 chronic kidney disease, or unspecified chronic kidney disease Hypothyroidism, unspecified Occlusion and stenosis of unspecified carotid artery Other chronic pain Other spondylosis with radiculopathy, lumbar region Postprocedural hypothyroidism Sacroiliitis, not elsewhere classified (CMS/HCC) Tachycardia, unspecified Thyroid malignant neoplasm (CMS/HCC) Hydronephrosis with ureteral stricture, not elsewhere classified Hyperglycemia Status post administration of cardiotoxic chemotherapy Adverse effect of anesthesia DDD (degenerative disc disease), lumbar Dental disease Second hand smoke exposure Non-seasonal allergic rhinitis Cancer related pain [3] Past Surgical History: Procedure Laterality Date COLONOSCOPY PORTACATH PLACEMENT Right [place] CYSTO/URETERO/PYELOSCOPY, DX Right 12/20/2022 Procedure: DIAGNOSTIC URETEROSCOPY; Surgeon: Sunday Lopez MD; Location: [facility]; Service: Urology THYROID SURGERY N/A Thyroid Surgery from [place] UPPER GASTROINTESTINAL ENDOSCOPY [4] Family History Problem Relation Name Age of Onset Other cancer Mother Cardiac disorder Father Elaine Goode Hypertension Father Elaine Goode Other cancer Sister Hepatitis Sister Colon cancer Brother Anesthesia problems Neg Hx Malig Hyperthermia Neg Hx Pseudochol deficiency Neg Hx [5] Allergies Allergen Reactions Enfortumab Vedotin Other - please document in the comment field Back pain Cosigned by Radha Wong MD at 07/31/2024 7:30 AM EDT Associated attestation - Radha Wong MD - 07/31/2024 7:30 AM EDT I saw and evaluated the patient with the resident/fellow. I discussed the case with the resident/fellow and agree with the findings and plan as documented. I personally spent a total of 20 minutes on this encounter. This time includes face to face with patient, counseling, and discussion and/or coordination of care. * Consults - Shital Campo MD - 07/23/2024 3:45 PM EDTAssociated Order(s): Consult to Urology Consult to Urology Consult performed by: Shital Campo MD Consult ordered by: Tanna Grande MD [facility] Urology Consult Note 07/23/24 Service Requesting Consultation: ED CC: hydronephrosis with stent in place HPI: Adrián Goode is a 59 y.o. 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 From a cancer perspective, he was initially diagnosed in the Fall 2022 with a right distal ureteralmass and large right common iliac node. At that time he had a ureteral stent placed and has had it exchanged every 6 months. He was initially started on cisplatin and gemcitabine from 01/2023-01/2023. However, he then had progression of his disease with large RP nodes and was switched to EV Pembro in 04/2023. He then progressed again on scans as of 07/14/24 and he was scheduled to start docetaxel. He was supposed to receive his first infusion of docetaxal today, but he was unable to receive it due to his symptoms. He has been nauseous with frequent vomiting for the last 3 days. He had predominantly left sided abdominal pain, but he also just feels poorly all over his body. What ultimately made him come to the ED was difficulty urinating. He otherwise denied any dysuria, fevers, or chills. He also has had GI upset and was given a dose of steroids yesterday for possible immunotherapy colitis. He initially reported difficulty urinating, but once he got to the ED and was given some IV fluids,he was able to urinate a moderate volume of clear, yellow urine. Past Medical History: reviewed Medical History[1] Past Surgical History: reviewed Surgical History[2] Family History: reviewed Family History[3] Social History: reviewed Social History[4] Outpatient Medications: Current Outpatient Medications Medication Instructions dexamethasone (DECADRON) 8 mg, Oral, 2 times daily, Start day prior to docetaxel and continue for atotal of 3 days. dronabinol (MARINOL) 5 mg, Oral, 2 times daily before meals erdafitinib (BALVERSA) 8 mg, Oral, Daily, Take with or without food. Do not crush, chew, or dissolve. Swallow tablet(s) whole. fluticasone (Flonase) 50 MCG/ACT nasal spray 1 spray, Each Nostril, Daily, Shake gently. Before first use, prime pump. After use, clean tip and replace cap. gabapentin (NEURONTIN) 800 mg, 3 times daily hydrOXYzine pamoate (VISTARIL) 25 mg, Oral, 3 times daily PRN loperamide (Imodium A-D) 2 MG tablet 2 mg by mouth every 2 hours as needed for diarrhea; Not to exceed 16 mg in 24 hours magic mouthwash BLM (FIRST-Mouthwash) suspension 15 mL, Mouth/Throat, 4 times daily PRN montelukast (SINGULAIR) 10 mg, Oral, Nightly morphine CR (MS Contin) 15 MG 12 hr tablet TAKE 1 TABLET 2 TIMES EACH DAY DO NOT CRUSH, CHEW OR SPLIT. mupirocin (Bactroban) 2 % ointment Put muprocin in bilateral nares twice daily for 7 days Nutritional Supplements (nepro/carb steady) 237 mL, Oral, 2 times daily OLANZapine (ZyPREXA) 10 MG tablet Take 1 tablet by mouth nightly. ondansetron ODT (ZOFRAN-ODT) 8 mg, Oral, Every 8 hours scheduled, Alternate with compazine oxybutynin XL (DITROPAN-XL) 10 mg, Oral, Daily, Do not crush, chew, or split. oxyCODONE (ROXICODONE) 10 mg, 4 times daily PRN pantoprazole (Protonix) 40 MG EC tablet Take 1 tablet by mouth daily. polyethylene glycol (Miralax) 17 GM/SCOOP powder Take 17 g by mouth daily. prochlorperazine (COMPAZINE) 10 mg, Oral, Every 6 hours PRN senna-docusate sodium (Senokot-S) 8.6-50 MG tablet 1 tablet, Oral, Daily tamsulosin (Flomax) 0.4 MG 24 hr capsule TAKE 1 CAPSULE BY MOUTH ONCE A DAY WITH DINNER Tirosint 125 mcg, Oral, Daily before breakfast tiZANidine (ZANAFLEX) 2 mg, 3 times daily PRN PHYSICAL EXAM: Temp: [36.7 ??C (98 ??F)-37.1 ??C (98.7 ??F)] 36.7 ??C (98 ??F) Heart Rate: [80-93] 80 Resp: [16-17] 16 BP: (107-109)/(72-74) 107/74 SpO2: [97 %-98 %] 98 % GEN: Appears chronically ill HEENT: NCAT, EOMI RESP: Equal bilateral chest rise, normal work of breathing CV: Regular rate, appears well perfused ABD: Nondistended. Mildly tender diffusely. : No CVA tenderness. EXT: No gross deformities MSK: Full ROM in BL UE NEURO: No focal deficits, alert and oriented PSYCH: Normal mood and affect LABS: Results from last 7 days Lab Units 07/23/24 1155 WBC 10*3/uL 14.74* HEMOGLOBIN g/dL 10.9* HEMATOCRIT % 32.8* PLATELETS 10*3/uL 243 Results from last 7 days Lab Units 07/23/24 1155 SODIUM mmol/L 129* POTASSIUM mmol/L 4.9 CHLORIDE mmol/L 93* CO2 mmol/L 23 BUN mg/dL 17 CREATININE mg/dL 1.43* EGFR mL/min/1.73m*2 56.1 GLUCOSE mg/dL 115* CALCIUM mg/dL 9.6 Results from last 7 days Lab Units 07/23/24 1338 COLOR UA Dark Yellow SPEC GRAV U 1.008 PH UA 6.5 PROTEIN UR mg/dL 100* GLUCOSE UA mg/dL Negative KETONES UA mg/dL Negative LEUKOCYTES UA Trace* NITRITE UA Positive* RBC, URINE /HPF 4 - 10* WBC, URINE /HPF 0 - 5 SQUAMOUS /HPF 0 - 2 BACTERIA UR HPF Negative Imaging: CT A&P (07/23/24): I personally reviewed this scan from a urologic perspective. He has mild right sided hydronephrosis which is slightly worse than his scan from 07/14/24. The right ureteral stent appears to be in an appropriate position. His bladder is mildly distended with some mild wall thickening which may indicate cystits. He also has extensive pelvic and RP LAD which is the same as his last scan. Hospital Problem List: High Grade Upper Tract Urothelial Carcinoma with Bulky Lymphadenopathy Nausea & Vomiting Assessment: Adrián Goode is a 59 y.o. 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 Due to his bulky LAD, he has received right ureteral stent exchanges every 6months with his next one due on 08/27/24. On CT he does have mild worsening of his right hydronephrosis, but his stent appears to be in an appropriate position. He does have an CARLOS with a creatinine of 1.43 from a normal baseline. This is more likely to be due to dehydration from frequent emesis than stent failure given the lack of hydronephrosis on his scan from 07/14/24. He also has signs of possi ble infection on his UA and a urine culture is pending. His symptoms are likely not related to the hydronephrosis seen on his scan and instead could be attributed to his metastatic disease, current use of systemic therapy, viral illness, or a UTI. As such, there is no emergent need to exchange his stent, and this can be done at his previously scheduled time. Plan: - No acute urologic intervention indicated - Keep scheduled stent exchange for 08/27/24 - Recommend treating for possible UTI with tailoring to culture data as they become available - Recommend IV hydration and rechecking his kidney function - No urologic indication for admission and would recommend admission to Hospital Medicine if he requires inpatient care. For questions or concerns, please contact the occupational safety specialist urologic oncology resident via [employer]. Shital Campo MD Msc Urology PGY-3 [1] Past Medical History: Diagnosis Date Acute kidney failure, unspecified (CMS/HCC) 02/28/2023 Adverse effect of anesthesia aspirated during colonoscopy few yrs. ago - also DDD cervical area Bladder cancer (CMS/HCC) 12/2022 Cancer (CMS/HCC) thyroid - surgery only Cervicalgia Neck pain Congested nose Cough mild cough, mild chest congestion, started week ago from 02/16/24, denies fever, fatigue DDD (degenerative disc disease), lumbar and cervical Dental disease endentulous GERD (gastroesophageal reflux disease) Hyperlipidemia Hypertension Hypothyroidism Personal history of other diseases of the circulatory system History of hypertension Personal history of other diseases of the digestive system History of esophageal reflux Personal history of other diseases of the musculoskeletal system and connective tissue History of backache Personal history of other endocrine, nutritional and metabolic disease History Of Hypercholesterolemia [2] Past Surgical History: Procedure Laterality Date COLONOSCOPY PORTACATH PLACEMENT Right [place] CYSTO/URETERO/PYELOSCOPY, DX Right 12/20/2022 Procedure: DIAGNOSTIC URETEROSCOPY; Surgeon: Sunday Lopez MD; Location: [facility]; Service: Urology THYROID SURGERY N/A Thyroid Surgery from [place] UPPER GASTROINTESTINAL ENDOSCOPY [3] Family History Problem Relation Name Age of Onset Other cancer Mother Cardiac disorder Father Elaine Goode Hypertension Father Elaine Goode Other cancer Sister Hepatitis Sister Colon cancer Brother Anesthesia problems Neg Hx Malig Hyperthermia Neg Hx Pseudochol deficiency Neg Hx [4] Social History Tobacco Use Smoking status: Never Passive exposure: Yes Smokeless tobacco: Current Types: Snuff Tobacco comments: 10 x daily Vaping Use Vaping status: Never Used Substance Use Topics Alcohol use: Not Currently Comment: Alcoholic Drinks/day: History of alcohol use Drug use: Not Currently Comment: Drug use: History of drug use Cosigned by Adal Franklin MD at 07/27/2024 6:58 AM EDT Associated attestation - Adal Franklin MD - 07/27/2024 6:58 AM EDT I saw and evaluated the patient with the resident/fellow. I discussed the case with the resident/fellow and agree with the findings and plan as documented. * ED Provider Notes - Lester Gonzalez DO - 07/23/2024 10:44 AM EDT Images from the original note were not included. - HPI Chief Complaint Patient presents with Vomiting PIT NOTE Adrián Goode is a 59 y.o. male with a h/o bladder cancer, HLD, HTN, and right portacath placement who presents to the ED with vomiting. Pt c/o nausea and vomiting since yesterday. Pt states stent was supposed to be replaced in August but was not. Pt denies smoking, etoh, and recreational drug use.Pt denies chest pain, shortness of breath, cough, abdominal pain, and diarrhea. Pt denies any othercomplaints at this time. 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 male with history of metastatic upper tract bladder cancer stage IV with right ureteral stent, Hld, HTN, right portacath placement, history of thyroid cancer s/p thyroidectomy in 2014. Presents to the ED with nausea and vomiting for 1 day. Patient states he has vomited 3 times today and has had a hard time keeping anything down. He reports he had planned to start a new chemotherapy medication today at infusion clinic but had to cancel due to vomiting. Denies blood in the vomit. States his last bowel movement was 2 days ago and does not believe he has passed gas. Patient also states he has had pain and burning with urination for around 1 week and has felt an overal increased difficulty in urinating. Denies blood in his urine. Has a history of a right nephroureteral stent that was planned for exchange at the end of August. States he has overall feeling of weakness. Patient does note that he started steroids yesterday morning in preparation of infusion today. Denies fever, chest pain, SOA, diarrhea, swelling. Patient History Medical History[1] Surgical History[2] Family History[3] Social History[4] Allergies: Allergies[5] Physical Exam ED Triage Vitals [07/23/24 1051] Temp Heart Rate Resp BP 37.1 ??C (98.7 ??F) 93 17 109/72 SpO2 Temp Source Heart Rate Source Patient Position -- Oral -- -- BP Location FiO2 (%) -- -- Physical Exam Constitutional: General: He is not in acute distress. Appearance: He is normal weight. HENT: Head: Normocephalic. Comments: No facial swelling Mouth/Throat: Mouth: Mucous membranes are moist. Eyes: Conjunctiva/sclera: Conjunctivae normal. Cardiovascular: Rate and Rhythm: Normal rate and regular rhythm. Heart sounds: Normal heart sounds. Pulmonary: Effort: Pulmonary effort is normal. No respiratory distress. Breath sounds: Normal breath sounds and air entry. Comments: Speaking full sentences. Symmetric chest rise Abdominal: General: There is no distension. Palpations: Abdomen is soft. Tenderness: There is abdominal tenderness (diffusely in lower quadrants, greater in suprapubic region). Musculoskeletal: General: Normal range of motion. Cervical back: Normal range of motion. Comments: Atraumatic, moves all extremities spontaneously Skin: General: Skin is warm. Comments: Facial redness appreciated, patient denies recent sun exposure and denies feeling hot Neurological: Mental Status: He is alert and oriented to person, place, and time. Mental status is at baseline. Comments: Awake Psychiatric: Mood and Affect: Mood normal. Behavior: Behavior normal. No data recorded ED Course & MDM Date/Time: 07/23/2024/11:24 AM Scribe Attestation: This note was dictated to me, Dora Engle, acting as a scribe for Dr. Benny Joy MD. Attending Attestation: The documentation was recorded by Dora Engle acting as scribe in my presence at the time of the encounter and accurately reflects the service I personally performed. - Assessment: 59 y.o. male presents to ED with complaint of nausea and vomiting. It should be noted that the chronic conditions includes bladder cancer stage IV, right nephroureteral stent, which currently is not at goal therapy. This complicates the clinical picture because it Comorbidities: may be exacerbatingsymptoms, increases the amount and complexity of data to be reviewed, and complicates the clinical workup Differential Diagnosis: complication of nephroureteral stent, cystitis, bowel obstruction, UTI, gastroenteritis, In order to fully explore the differential diagnosis the following treatments and tests were ordered: ED Medication Administration from 07/23/2024 1044 to 07/23/2024 1935 Date/Time Order Dose Route Action 07/23/2024 1158 EDT lactated Ringer's infusion 1,000 mL 1,000 mL Intravenous New Bag 07/23/2024 1300 EDT ondansetron (Zofran) injection 4 mg 4 mg Intravenous Given 07/23/2024 1302 EDT morphine PF 4 mg 4 mg Intravenous Given 07/23/2024 1330 EDT lactated Ringer's infusion 1,000 mL 0 mL Intravenous Stopped 07/23/2024 1345 EDT iohexol (OMNIPaque) 300 MG/ML injection 100 mL 100 mL Intravenous Given 07/23/2024 1609 EDT morphine PF 4 mg 4 mg Intravenous Given 07/23/2024 1839 EDT oxyCODONE (Roxicodone) immediate release tablet 10 mg 10 mg Oral Given 07/23/2024 191 EDT lactated Ringer's infusion 1,000 mL 1,000 mL Intravenous New Bag 07/23/20241911 EDT cefTRIAXone (Rocephin) 2 g in sodium chloride 0.9% 100 mL IVPB (vial adapter required) 2 g Intravenous New Bag 07/23/20241913 EDT sodium chloride 0.9 % flush 10 mL 10 mL Intravenous Given 07/23/20241922 EDT oxyCODONE (Roxicodone) immediate release tablet 10 mg 10 mg Oral Not Given All Other Orders Ordered Status Ordering Provider 07/23/241929 Comprehensive Metabolic Panel, Plasma Morning draw Order ID Start Status Ordering Provider [id number] 07/24/24399 Acknowledged HOFFMAN, ALI N 07/25/24 0400 Scheduled HOFFMAN, ALI N 07/26/24 0400 Scheduled HOFFMAN, ALI N 07/27/24 0400 Scheduled HOFFMAN, ALI N 07/28/24 0400 Scheduled HOFFMAN, ALI N Acknowledged HOFFMAN, ALI N 07/23/24 193 Phosphorus, Plasma Morning draw Order ID Start Status Ordering Provider [id number] 07/24/24399 Acknowledged HOFFMAN, ALI N 07/25/24 0400 Scheduled HOFFMAN, ALI N 07/26/24 0400 Scheduled HOFFMAN, ALI N 07/27/24 0400 Scheduled HOFFMAN, ALI N 07/28/24 040 Scheduled HOFFMAN, ALI N Acknowledged HOFFMAN, ALI N 07/23/24 193 Magnesium, Plasma Morning draw Order ID Start Status Ordering Provider [id number] 07/24/24399 Acknowledged HOFFMAN, ALI N 07/25/24 0400 Scheduled HOFFMAN, ALI N 07/26/24 0400 Scheduled HOFFMAN, ALI N 07/27/24 0400 Scheduled HOFFMAN, ALI N 07/28/24 0400 Scheduled HOFFMAN, ALI N Acknowledged HOFFMAN, ALI N 07/23/24 1930 CBC and Differential Morning draw Order ID Start Status Ordering Provider [id number] 07/24/24399 Acknowledged HOFFMAN, ALI N 07/25/24 0400 Scheduled HOFFMAN, ALI N 07/26/24 0400 Scheduled HOFFMAN, ALI N 07/27/24 0400 Scheduled HOFFMAN, ALI N 07/28/24 0400 Scheduled HOFFMAN, ALI N Acknowledged HOFFMAN, ALI N 07/23/24 190 Vital Signs Every 4 hours Acknowledged JG NEWBY 07/23/241900 Notify Provider Until discontinued Comments: temp greater than 100.4, SBP greater than 160/less than 90, MAPs greater than 110, less than 65, HR greater than 110/less than 50, SpO2 less than 88, Glucose less than 80 or greater than 250, chest pain = obtain ECG and notify provider Acknowledged JG NEWBY 07/23/24 190 Insert peripheral IV Once Placed in And Linked Group Acknowledged JG NEWBY 07/23/24 190 Saline lock IV Once Placed in And Linked Group Acknowledged JG NEWBY 07/23/24 190 Full code Continuous Acknowledged JG NEWBY 07/23/24 190 Adult diet Diet texture: Regular Diet effective now Acknowledged JG NEWBY 07/23/24 190 Sequential compression device Until discontinued Comments: SCDs must be in place and turned on EXCEPT when ACTIVELY ambulating. Acknowledged JG NEWBY 07/23/24 1606 Diet effective now Canceled LESTER GONZALEZ 07/23/24 1606 PO challenge Once Acknowledged LESTER GONZALEZ 07/23/24 1527 Urine culture- (clean catch) STAT In process LESTER GONZALEZ 07/23/24 1459 Consult to Urology Once Specialty: Urology Provider: (Not yet assigned) Completed LESTER GONZALEZ 07/23/24 1344 Urinalysis Microscopic Examination Once Final result BENNY JOY 07/23/24 1209 Magnesium STAT Final result TANNA GRANDE Estella 07/23/24 1123 Bladder scan Once Acknowledged BENNY JOY 07/23/[address] Abdomen Pelvis w IV Contrast Once Final result BENNY JOY 07/23/24 1123 Insert peripheral IV Once Acknowledged BENNY JOY 07/23/24 1123 CMP STAT Final result BENNY JOY 07/23/24 1123 CBC w/diff STAT Final result BENNY JOY 07/23/24 1123 Urinalysis with reflex microscopic (Culture NOT Included) STAT Final result BENNY JOY 07/23/24 1123 Phosphorus STAT Final result BENNY JOY 07/23/24 1123 Lactic acid, venous STAT Final result BENNY JYO ED Course as of 07/23/241935July 23, 2024 1224 Patient is hemodynamically stable. Hx of stage IV metastatic bladder cancer. Aox3, states he vomited 3x today and last took prochlorperazine at 7am. He denies nausea at this time. Feels overall weak. Suprapubic tenderness on exam. States he has had pain and burning with urination over the pastweek. Hx of nephroureteral stent [MD] 1226 CBC w/diff(!) Leukocytosis WBC 14.74. Left shift ANC 12.58 [MD] 1232 CMP(!) Creatinine 1.43, NA 129 [MD] 1233 Bladder scan performed 71mL [MD] 1350 Urinalysis with reflex microscopic (Culture NOT Included)(!) Positive for nitrites, tace leukocytes, moderate blood in urine. Urine culture ordered [MD] 1515 CT Abdomen Pelvis w IV Contrast Worsening hydronephrosis bilaterally [MD] 1521 Urology consulted [MD] 1612 Pending urine culture [MD] 1613 Will PO challenge and re-evaluate [MD] 1752 Patient tolerating PO but minimal to no improvement in overall feeling. Will plan to admit to ED obs for IV fluid hydration, pain control, improvement of hyponatremia likely secondary to hypovolemia . Monitor CMP [MD] ED Course User Index [MD] Lester Gonzalez, DO Clinical Impressions as of 07/23/241935 Nausea and vomiting, unspecified vomiting type Hyponatremia Malignant neoplasm of urinary bladder, unspecified site (CMS/HCC) Social Determinates of Health Risks (including Economic Stability, Education and level of understanding, Healthcare access and quality and concerning social factors): None identified on this visit Ultimately, this patient was Was admitted (Admission) The primary encounter diagnosis was Nausea and vomiting, unspecified vomiting type. Diagnoses of Hyponatremia and Malignant neoplasm of urinary bladder, unspecified site (CMS/HCC) were also pertinent to this visit.. Patient believed to require admission for the listed diagnoses. The Ed Observation service was consulted for admission and was agreeable to admit to ED Obs for rehydrationwith IV fluids,and monitoring in setting of hyponatremia likely due to hypovolemia . ED Prescriptions None Disposition Observation Provider Care Team: AMANDA DAVIS ADULT [56] Are they the primary team?: Yes [1] - [1] Past Medical History: Diagnosis Date Acute kidney failure, unspecified (CMS/HCC) 02/28/2023 Adverse effect of anesthesia aspirated during colonoscopy few yrs. ago - also DDD cervical area Bladder cancer (CMS/HCC) 12/2022 Cancer (CMS/HCC) thyroid - surgery only Cervicalgia Neck pain Congested nose Cough mild cough, mild chest congestion, started week ago from 02/16/24, denies fever, fatigue DDD (degenerative disc disease), lumbar and cervical Dental disease endentulous GERD (gastroesophageal reflux disease) Hyperlipidemia Hypertension Hypothyroidism Personal history of other diseases of the circulatory system History of hypertension Personal history of other diseases of the digestive system History of esophageal reflux Personal history of other diseases of the musculoskeletal system and connective tissue History of backache Personal history of other endocrine, nutritional and metabolic disease History Of Hypercholesterolemia [2] Past Surgical History: Procedure Laterality Date COLONOSCOPY PORTACATH PLACEMENT Right [place] CYSTO/URETERO/PYELOSCOPY, DX Right 12/20/2022 Procedure: DIAGNOSTIC URETEROSCOPY; Surgeon: Sunday Lopez MD; Location: [facility]; Service: Urology THYROID SURGERY N/A Thyroid Surgery from [facility] UPPER GASTROINTESTINAL ENDOSCOPY [3] Family History Problem Relation Name Age of Onset Other cancer Mother Cardiac disorder Father Elaine Goode Hypertension Father Elaine Goode Other cancer Sister Hepatitis Sister Colon cancer Brother Anesthesia problems Neg Hx Malig Hyperthermia Neg Hx Pseudochol deficiency Neg Hx [4] Tobacco Use Smoking status: Never Passive exposure: Yes Smokeless tobacco: Current Types: Snuff Tobacco comments: 10 x daily Vaping Use Vaping status: Never Used Substance Use Topics Alcohol use: Not Currently Comment: Alcoholic Drinks/day: History of alcohol use Drug use: Not Currently Comment: Drug use: History of drug use [5] Allergies Allergen Reactions Enfortumab Vedotin Other - please document in the comment field Back pain Lester Gonzalez DO Resident 07/23/241935 Cosigned by Elliot Frankel MD at 07/26/2024 3:50 PM EDT Associated attestation - Elliot Frankel MD - 07/26/2024 3:50 PM EDT I saw and evaluated the patient with the resident/fellow. I discussed the case with the resident/fellow and agree with the findings and plan as documented. * ED Triage Notes - Merle Julian, RN - 07/23/2024 10:44 AM EDT [place] since yesterday documented in this encounter Plan of Treatment Upcoming Encounters Date Type Department Care Team (Late st Contact Info) Description 08/20/2024 9:30 AM EDT Office Visit [facility] Multidisciplinary Oncology Clinic [address] [place] [address] Sara Tesfaye APRN [address] [facility] [address] [address] 08/27/2024 1:00 PM EDT Office Visit [facility] Multidisciplinary Oncology [facility] [address] [place] [phone] Bobby Vazquez MD [address] [facility] [address] [address] 08/27/2024 1:00 PM EDT Clinical Support [facility] Mult[facility] Oncology Clinic [address] [place] [address] 08/27/2024 2:30 PM EDT Appointment [facility] Infusion Clinic [address] [place] [address] 09/17/2024 2:30 PM EDT Appointment [facility] Infusion Clinic [address] [place] [address] 10/08/2024 2:30 PM EDT Appointment [facility] Infusion [facility] [address] [place] [address] 10/19/2024 11:30 AM EDT Office Visit [facility] Multidisciplinary Oncology Clinic [address] [place] [phone] Kym Romero CATALYST OPERATOR [address] [facility] [place] [address] [address] 11/24/2024 11:00 AM EDT Office Visit [facility] [address] [place] [address] Adal Franklin MD [address] [place] [address] 12/15/2024 1:00 PM EDT Office Visit [facility] [address] [place] [address] Efren Fallon MD [address] [place] [address] 12/29/2024 9:30 AM EDT Clinical Support [facility] [address] [facility] [place] [address] 12/29/2024 10:00 AM EDT Office Visit [facility] [address] [facility] [place] [phone] Carlito Mccartney MD [address] [facility] [address] [place] [address] 03/23/2025 10:40 AM EST Office Visit [facility] [address] [facility], [address] [place] [address] Arabella Romero, CATALYST OPERATOR [address] [place] [address] documented as of this encounter Procedures Procedure Name Priority Date/Time Associated Diagnosis Comments CBC WITH AUTO DIFFERENTIAL STAT 07/24/2024 4:06 AM EDT PHOSPHORUS, PLASMA STAT 07/24/2024 4: 06 AM EDT MAGNESIUM, PLASMA STAT 07/24/2024 4:0 6 AM EDT COMPREHENSIVE METABOLIC PANEL, PLASMA STAT 07/24/2024 4:06 AM EDT SODIUM, URINE, RANDOM STAT 07/23/2024 10:59 PM EDT CREATININE, RANDOM URINE STAT 07/23/2024 10:59 PM EDT URINE CULTURE STAT 07/23/2024 3:[address] ABDOMEN PELVIS W IV CONTRAST STAT 07/23/2024 1:50 PM EDT URINALYSIS MICROSCOPIC FOR UA REFLEX STAT 07/23/2024 1:38 PM EDT URINALYSIS WITH REFLEX MICROSCOPIC STAT 07/23/2024 1:38 PM EDT LACTATE, VENOUS STAT 07/23/2024 11:55 AM EDT CBC WITH AUTO DIFFERENTIAL STAT 07/23/2024 11:55 AM EDT PHOSPHORUS, PLASMA STAT 07/23/2024 11 :55 AM EDT MAGNESIUM, PLASMA STAT Add-on 07/23/2024 11: 55 AM EDT COMPREHENSIVE METABOLIC PANEL, PLASMA STAT 07/23/2024 11:55 AM EDT documented in this encounter Results * (ABNORMAL) CBC and Differential (07/24/2024 4:06 AM EDT) Pathologist [facility] WBC Count 8.94 3.70 - 10.30 10*3/uL LAB HEMATOLOGY METHOD 07/24/2024 4:11 AM EDT [facility] RBC Count 3.56(L) 4.60 - 6.10 10*6/uL LAB HEMATOLOGY METHOD 07/24/2024 4:11 AM EDT [facility] HGB 9.2(L) 13.7 - 17.5 g/dL LAB HEMATOLOGY METHOD 07/24/2024 4:11 AM EDT [facility] HCT 28.2(L) 40.0 - 51.0 % LAB HEMATOLOGY METHOD 07/24/2024 4:11 AM EDT [facility] Platelet Count 203 155 - 369 10*3/uL LAB HEMATOLOGY METHOD 07/24/2024 4:11 AM EDT [facility] MCV 79 79 - 98 fL LAB HEMATOLOGY METHOD 07/24/2024 4:11 AM EDT [facility] MCH 25.8(L) 26.0 - 32.0 pg LAB HEMATOLOGY METHOD 07/24/2024 4:11 AM EDT [facility] MCHC 32.6 30.7 - 35.5 g/dL LAB HEMATOLOGY METHOD 07/24/2024 4:11 AM EDT [facility] RDW 15.5(H) 11.5 - 14.5 % LAB HEMATOLOGY METHOD 07/24/2024 4:11 AM EDT [facility] MPV 9.3 8.8 - 12.5 fL LAB HEMATOLOGY METHOD 07/24/2024 4:11 AM EDT [facility] nRBC 0.0 <=0.0 per 100 WBCs LAB HEMATOLOGY METHOD 07/24/2024 4:11 AM EDT [facility] Differential Type Automated LAB HEMATOLOGY METHOD 07/24/2024 4:11 AM EDT [facility] Neutrophils % 75 % LAB HEMATOLOGY METHOD 07/24/2024 4:11 AM EDT [facility] Lymphocytes % 16 % LAB HEMATOLOGY METHOD 07/24/2024 4:11 AM EDT [facility] Monocytes % 8 % LAB HEMATOLOGY METHOD 07/24/2024 4:11 AM EDT [facility] Eosinophils % 1 % LAB HEMATOLOGY METHOD 07/24/2024 4:11 AM EDT [facility] Basophils % 0 % LAB HEMATOLOGY METHOD 07/24/2024 4:11 AM EDT [facility] Immature Granulocytes % 0 % LAB HEMATOLOGY METHOD 07/24/2024 4:11 AM EDT [facility] Neutrophils Absolute 6.64(H) 1.60 - 6.10 10*3/uL LAB HEMATOLOGY METHOD 07/24/2024 4:11 AM EDT [facility] Lymphocytes Absolute 1.45 1.20 - 3.90 10*3/uL LAB HEMATOLOGY METHOD 07/24/2024 4:11 AM EDT [facility] Monocytes Absolute 0.73 0.30 - 0.90 10*3/uL LAB HEMATOLOGY METHOD 07/24/2024 4:11 AM EDT [facility] Eosinophils Absolute 0.06 0.00 - 0.50 10*3/uL LAB HEMATOLOGY METHOD 07/24/2024 4:11 AM EDT [facility] Basophils Absolute 0.02 0.00 - 0.10 10*3/uL LAB HEMATOLOGY METHOD 07/24/2024 4:11 AM EDT [facility] Immature Granulocytes Absolute 0.04 0.00 - 0.06 10*3/uL LAB HEMATOLOGY METHOD 07/24/2024 4:11 AM EDT [facility] Blood Venous blood specimen / Unknown Venipuncture / Unknown 07/24/2024 4:06 AM EDT 07/24/2024 4:08 AM EDT Narrative [facility] - 07/24/2024 4:11 AM EDT Therapeutic decision making should be based on absolute values, rather than percentages. Elliot Frankel MD LAB BLOOD ORDERABLES Final Res ult Performing Organization Address City/[facility]/ZIP Co de Phone Number [facility] [address] [place] [address] * Magnesium, Plasma (07/24/2024 4:06 AM EDT) Magnesium, Plasma 2.0 1.9 - 2.4 mg/dL 07/24/2024 4:50 AM EDT [facility] Blood Venous blood specimen / Unknown Venipuncture / Unknown 07/24/2024 4:06 AM EDT 07/24/2024 4:19 AM EDT Elliot Frankel MD LAB BLOOD ORDERABLES Final Res ult [facility] [address] [place] [address] * Phosphorus, Plasma (07/24/2024 4:06 AM EDT) Phosphorus, Plasma 3.3 2.5 - 4.5 mg/dL 07/24/2024 4:50 AM EDT [facility] Blood Venous blood specimen / Unknown Venipuncture / Unknown 07/24/2024 4:06 AM EDT 07/24/2024 4:19 AM EDT us Elliot Frankel MD LAB BLOOD ORDERABLES Final Res ult [facility] [address] [place] [address] * (ABNORMAL) Comprehensive Metabolic Panel, Plasma (07/24/2024 4:06 AM EDT) Glucose, Plasma 100(H) 74 - 99 mg/dL 07/24/2024 4:50 AM EDT [facility] BUN, Plasma 14 8 - 23 mg/dL 07/24/2024 4:50 AM EDT [facility] Creatinine, Plasma 1.15 0.70 - 1.20 mg/dL 07/24/2024 4:50 AM EDT [facility] BUN/Creatinine Ratio 12 07/24/2024 4:50 AM EDT [facility] Sodium, Plasma 138 136 - 145 mmol/L 07/24/2024 4:50 AM EDT [facility] Potassium, Plasma 4.1 3.6 - 4.9 mmol/L 07/24/2024 4:50 AM EDT [facility] Chloride, Plasma 102 97 - 107 mmol/L 07/24/2024 4:50 AM EDT [facility] CO2, Plasma 26 22 - 29 mmol/L 07/24/2024 4:50 AM EDT [facility] Anion Gap 10 6 - 16 mmol/L 07/24/2024 4:50 AM EDT [facility] Total Calcium, Plasma 9.3 8.9 - 10.2 mg/dL 07/24/2024 4:50 AM EDT [facility] Total Protein 6.3 6.3 - 7.9 g/dL 07/24/2024 4:50 AM EDT [facility] Albumin, Plasma 3.4(L) 3.5 - 5.2 g/dL 07/24/2024 4:50 AM EDT [facility] AST, Plasma 31 10 - 50 U/L 07/24/2024 4:50 AM EDT [facility] ALT, Plasma 29 10 - 50 U/L 07/24/2024 4:50 AM EDT [facility] Alkaline Phosphatase, Plasma 91 40 - 115 U/L 07/24/2024 4:50 AM EDT [facility] Total Bilirubin, Plasma <0.2(L) 0.2 - 1.1 mg/dL 07/24/2024 4:50 AM EDT [facility] eGFRcr 72.9 mL/min/1.7 3m*2 07/24/2024 4:50 AM EDT [facility] Comment:Reported eGFRcr in m L/min/1.73m2 is based the CKD-EPI 2020 equation that does not use a race coefficient. Blood Venous blood specimen / Unknown Venipuncture / Unknown 07/24/2024 4:06 AM EDT 07/24/2024 4:19 AM EDT us Elliot Frankel MD LAB BLOOD ORDERABLES Final Res ult Performing Organization Address City/[facility]/ZIP Co de Phone Number [facility] [address] [place] [address] * Creatinine, urine, random (07/23/2024 10:59 PM EDT) Creatinine, Urine 16 mg/dL 07/23/2024 11:46 PM EDT [facility] Urine Urine specimen obtained by clean catch procedure / Unknown Non-blood Collection / Unknown 07/23/2024 10:59 PM EDT 07/23/2024 11:14 PM EDT us Tomasz Pedraza DO LAB URINE ORDERABLES Final Res ult [facility] [address] [place] [address] * Sodium, urine, random (07/23/2024 10:59 PM EDT) Sodium, Urine 22 mmol/L 07/23/2024 11:46 PM EDT [facility] Urine Urine specimen obtained by clean catch procedure / Unknown Non-blood Collection / Unknown 07/23/2024 10:59 PM EDT 07/23/2024 11:14 PM EDT us Tomasz Pedraza DO LAB URINE ORDERABLES Final Res ult Performing Organization Address City/[facility]/ZIP Co de Phone Number [facility] [address] [place] [address] * (ABNORMAL) Urine culture- (clean catch) (07/23/2024 3:36 PM EDT) [facility] Culture 10,000 - 100,000 CFU/mL Enterococcus faecalis(A) JENNY 07/26/2024 10:31 AM EDT [facility] Comment: This isolate has been identified using the FDA Approved Be[employer]ky[employer] [place] System Edited result: Previously reported as Gram positive cocci on 07/24/2024 at 1253 EDT. Urine Urine specimen obtained by clean catch procedure / Unknown Non-blood Collection / Unknown 07/23/2024 3:36 PM EDT 07/23/2024 4:17 PM EDT Narrative Organism Antibiotic Method Susceptibility Enterococcus faecalis Ampicillin JENNY 1 ug/ml: Susceptible Enterococcus faecalis Daptomycin JENNY 2 ug/ml: Susceptible Enterococcus faecalis Gentamicin Synergy , 500 UG/ML JENNY <=500 ug/ml: Susceptible Comment:Synergy of a minoglycoside with Penicillin is likely. Serious Enterococcal infections require combined therapy with high dose Ampicillin or Vancomycin plus Gentamicin or Streptomycin. Enterococcus faecalis Levofloxacin JENNY <=1 ug/ml: Susceptible Enterococcus faecalis Linezolid JENNY <=1 ug/ml: Susceptible Enterococcus faecalis Penicillin G JENNY 4 ug/ml: Susceptible Enterococcus faecalis Streptomycin Syner gy, 1000 UG/ML JENNY <=1,000 ug/ml: Susceptible Comment:Synergy of a minoglycoside with Penicillin is likely. Serious Enterococcal infections require combined therapy with high dose Ampicillin or Vancomycin plus Gentamicin or Streptomycin. Enterococcus faecalis Tetracycline JENNY <=0.5 ug/ml: Susceptible Enterococcus faecalis Vancomycin JENNY 1 ug/ml: Susceptible Tanna Heller LAB MICROBIOLOGY - GENERAL ORDER NAHEED Final Result Performing Organization Address [facility]/ZIP Co de Phone Number [facility] [address] [place] [address] * CT Abdomen Pelvis w IV Contrast (07/23/2024 1:50 PM EDT) Anatomical Region Laterality Modality Abdomen, Pelvis Computed Tomogra phy Impressions 07/23/2024 2:40 PM EDT Redemonstration extensive adenopathy about the abdomen and pelvis as above concerning for metastatic lymphadenopathy, similar over the short-term interval. Redemonstration right ureteral stent in situ. Interval increased moderate right hydroureteronephrosis to the level of the mid ureter with associated urothelial hyperenhancement. Ureteral stenosis or underlying lesion not excluded. Persistent right periureteral stranding and trace fluid. Mild left hydroureteronephrosis with adjacent periureteral stranding, increased over the interval. Borderline bladder wall thickening with adjacent stranding and trace fluid, correlate for cystitis/urinary tract infection. Mild thickening distal thoracic esophagus, nonspecific, correlate for reflux and reflux esophagitis. CRITICAL RESULT: No. COMMUNICATION: Per this written report. Drafted by Vladimir Flores MD on 07/23/2024 2:26 PM Final report signed by Vladimir Flores MD on 07/23/2024 2:40 PM Narrative 07/23/2024 2:40 PM EDT CLINICAL INDICATION: Abdominal pain, acute, nonlocalized TECHNIQUE: Imaging of the abdomen and pelvis was performed, from lung bases through pubic symphysis, using spiral technique, following administration of IV contrast. Delayed (excretory phase) images were performed through the kidneys. Reformatted images in the coronal and sagittal planes were generated from the axial data set to facilitate diagnostic accuracy. Total DLP (Dose-Length Product): 1249.44 mGy.cm. Please note: The reported value represents the total of one or more individual components during the CT acquisition on this date and at this time, and as such, the same value may appear in more than one CT report depending on the interpreting/reporting physicians. COMPARISON: 07/14/2024 FINDINGS: Lung Bases: Mild dependent scarring and atelectasis right greater than left. Liver: No suspicious focal hepatic mass lesion. Portal vein is patent. Gallbladder:No abnormal gallbladder wall thickening. Spleen: No suspicious splenic mass lesion. Pancreas: No suspicious pancreatic mass lesion. Adrenals: No suspicious adrenal mass lesion. Kidneys: Mild left hydroureteronephrosis with adjacent periureteral stranding, increased over the interval. Redemonstration right ureteral stent, proximal aspect of the right renal collecting system with distal aspect terminating within the urinary bladder. Interval increased moderate right hydroureteronephrosis to the level of the mid ureter with associated urothelial hyperenhancement. Ureteral stenosis or underlying lesion not excluded. No obstructing ureteral calculus. Borderline bladder wall thickening with adjacent stranding and trace fluid, correlate for cystitis/urinary tract infection. Persistent right periureteral stranding and trace fluid. Bowel/Mesentery: Mild thickening distal thoracic esophagus, nonspecific, correlate for reflux and reflux esophagitis. No evidence of small bowel obstruction. Unchanged mild thickening of the peritoneal reflections lower abdomen and pelvis. Vessels/Lymph Nodes: Atherosclerotic disease bilateral aorta and iliac vasculature. Redemonstration extensive adenopathy about the abdomen and pelvis, grossly similar over the short-term interval. For example 2.7 cm left iliac chain image 66 series 2 and 2.1 cm left iliac chain image 65 series 2, similar over the interval. 3.1 cm right external iliac chain lymph node image 71 series 2, similar over the interval. Additional right inguinal adenopathy similar over the interval. Multiple retroperitoneal periaortic lymph nodes, similar over the interval, for example 14 mm image 40 series 2, previously 14 mm. Findings concerning for metastatic lymphadenopathy. Fluid Survey: Trace scattered free fluid. Body Wall: Mild scattered subcutaneous edema. Bones: No acute osseous abnormality. Procedure Note Vladimir Flores MD - 07/23/2024 CLINICAL INDICATION: Abdominal pain, acute, nonlocalized TECHNIQUE: Imaging of the abdomen and pelvis was performed, from lung bases throughpubic symphysis, using spiral technique, following administration of IVcontrast. Delayed (excretory phase) images were performed through thekidneys. Reformatted images in the coronal and sagittal planes weregenerated from the axial data set to facilitate diagnostic accuracy. Total DLP (Dose-Length Product): 1249.44 mGy.cm. Please note: The reportedvalue represents the total of one or more individual components during theCT acquisition on this date and at this time, and as such, the same valuemay appear in more than one CT report depending on theinterpreting/reporting physicians. COMPARISON: 07/14/2024 FINDINGS: Lung Bases: Mild dependent scarring and atelectasis right greater thanleft. Liver: No suspicious focal hepatic mass lesion. Portal vein is patent. Gallbladder:No abnormal gallbladder wall thickening. Spleen: No suspicious splenic mass lesion. Pancreas: No suspicious pancreatic mass lesion. Adrenals: No suspicious adrenal mass lesion. Kidneys: Mild left hydroureteronephrosis with adjacent periureteralstranding, increased over the interval. Redemonstration right ureteralstent, proximal aspect of the right renal collecting system with distalaspect terminating within the urinary bladder. Interval increased moderateright hydroureteronephrosis to the level of the mid ureter with associatedurothelial hyperenhancement. Ureteral stenosis or underlying lesion notexcluded. No obstructing ureteral calculus. Borderline bladder wallthickening with adjacent stranding and trace fluid, correlate forcystitis/urinary tract infection. Persistent right periureteral strandingand trace fluid. Bowel/Mesentery: Mild thickening distal thoracic esophagus, nonspecific,correlate for reflux and reflux esophagitis. No evidence of small bowelobstruction. Unchanged mild thickening of the peritoneal reflections lowerabdomen and pelvis. Vessels/Lymph Nodes: Atherosclerotic disease bilateral aorta and iliacvasculature. Redemonstration extensive adenopathy about the abdomen andpelvis, grossly similar over the short-term interval. For example 2.7 cmleft iliac chain image 66 series 2 and 2.1 cm left iliac chain image 65series 2, similar over the interval. 3.1 cm right external iliac chainlymph node image 71 series 2, similar over the interval. Additional rightinguinal adenopathy similar over the interval. Multiple retroperitonealperiaortic lymph nodes, similar over the interval, for example 14 mm image40 series 2, previously 14 mm. Findings concerning for metastaticlymphadenopathy. Fluid Survey: Trace scattered free fluid. Body Wall: Mild scattered subcutaneous edema. Bones: No acute osseous abnormality. IMPRESSION: Redemonstration extensive adenopathy about the abdomen and pelvis as aboveconcerning for metastatic lymphadenopathy, similar over the short-terminterval. Redemonstration right ureteral stent in situ. Interval increased moderateright hydroureteronephrosis to the level of the mid ureter with associatedurothelial hyperenhancement. Ureteral stenosis or underlying lesion notexcluded. Persistent right periureteral stranding and trace fluid. Mild left hydroureteronephrosis with adjacent periureteral stranding,increased over the interval. Borderline bladder wall thickening with adjacent stranding and tracefluid, correlate for cystitis/urinary tract infection. Mild thickening distal thoracic esophagus, nonspecific, correlate forreflux and reflux esophagitis. CRITICAL RESULT: No. COMMUNICATION: Per this written report. Drafted by Vladimir Flores MD on 07/23/2024 2:26 PM Final report signed by Vladimir Flores MD on 07/23/2024 2:40 PM Benny Joy MD IMG CT PROCEDURES Fin al Result * Urinalysis Microscopic Examination (07/23/2024 1:38 PM EDT) Urine Urine specimen obtained by clean catch procedure / Unknown Non-blood Collection / Unknown 07/23/2024 1:38 PM EDT 07/23/2024 1:41 PM EDT Benny Joy MD LAB URINE ORDERABLES Final Result [facility] [address] [place] [address] * (ABNORMAL) Urinalysis with reflex microscopic (Culture NOT Included) (07/23/2024 1:38 PM EDT) Color, Urine Dark Yellow LAB URINALYSIS - AUTOMATED METHOD 07/23/2024 2:14 PM EDT [facility] Clarity, Urine Clear LAB URINALYSIS - AUTOMATED METHOD 07/23/2024 2:14 PM EDT [facility] Spec [place], Urine 1.008 1.005 - 1.030 LAB URINALYSIS - AUTOMATED METHOD 07/23/2024 2:14 PM EDT [facility] pH, Urine 6.5 5.0 - 8.0 LAB URINALYSIS - AUTOMATED METHOD 07/23/2024 2:14 PM EDT [facility] Protein, Urine 100(A) Negative mg/dL LAB URINALYSIS - AUTOMATED METHOD 07/23/2024 2:14 PM EDT [facility] Glucose, Urine Negative Negative mg/dL LAB URINALYSIS - AUTOMATED METHOD 07/23/2024 2:14 PM EDT [facility] Ketones, Urine Negative Negative mg/dL LAB URINALYSIS - AUTOMATED METHOD 07/23/2024 2:14 PM EDT [facility] Blood, Urine Moderate(A) Negative LAB URINALYSIS - AUTOMATED METHOD 07/23/2024 2:14 PM EDT [facility] Bilirubin, Urine Negative Negative LAB URINALYSIS - AUTOMATED METHOD 07/23/2024 2:14 PM EDT [facility] Urobilinogen, Urine 1.0 0.2 to 1.0 mg/dL LAB URINALYSIS - AUTOMATED METHOD 07/23/2024 2:14 PM EDT [facility] Leukocytes, Urine Trace(A) Negative LAB URINALYSIS - AUTOMATED METHOD 07/23/2024 2:14 PM EDT [facility] Nitrite, Urine Positive(A) Negative LAB URINALYSIS - AUTOMATED METHOD 07/23/2024 2:14 PM EDT [facility] RBC, Urine 4 - 10(A) 0 to 3 /HPF LAB URINALYSIS - AUTOMATED METHOD 07/23/2024 2:14 PM EDT [facility] Comment:This result was prev iously suppressed from the chart. WBC, Urine 0 - 5 0 to 5 /HPF LAB URINALYSIS - AUTOMATED METHOD 07/23/2024 2:14 PM EDT [facility] Comment:This result was prev iously suppressed from the chart. Squamous Epithelial Cells 0 - 2 0 to 5 /HPF LAB URINALYSIS - AUTOMATED METHOD 07/23/2024 2:14 PM EDT [facility] Comment:This result was prev iously suppressed from the chart. Hyaline Casts 0 - 2 0 to 5 /LPF LAB URINALYSIS - AUTOMATED METHOD 07/23/2024 2:14 PM EDT [facility] Comment:This result was prev iously suppressed from the chart. Bacteria, Urine Negative Negative LAB URINALYSIS - AUTOMATED METHOD 07/23/2024 2:14 PM EDT [facility] Comment: Verified by manual microscopic. Specimen color or other interfering substances may cause false positive nitrite. This result was previously suppressed from the chart. Renal Tubular Cells Present Absent 07/23/2024 2:14 PM EDT [facility] Comment:This result was prev iously suppressed from the chart. Urine Urine specimen obtained by clean catch procedure / Unknown Non-blood Collection / Unknown 07/23/2024 1:38 PM EDT 07/23/2024 1:41 PM EDT Narrative [facility] - 07/23/2024 2:14 PM EDT Performed by manual method us Benny Joy MD LAB URINE ORDERABLES Final Result Performing Organization Address City/[facility]/[place] [address] * (ABNORMAL) Magnesium (07/23/2024 11:55 AM EDT) Magnesium, Plasma 1.8(L) 1.9 - 2.4 mg/dL 07/23/2024 12:25 PM EDT [facility] Blood Venous blood specimen / Unknown Venipuncture / Unknown 07/23/2024 11:55 AM EDT 07/23/2024 11:58 AM EDT us Tanna Heller LAB BLOOD ORDERABLES Final Resul t Performing Organization Address City/[facility] [place] [address] * Lactic acid, venous (07/23/2024 11:55 AM EDT) Lactate, Venous, Whole Blood 1.7 0.5 - 2.2 mmol/L LAB HEMATOLOGY METHOD 07/23/2024 11:59 AM EDT [facility] Blood Venous blood specimen / Unknown Venipuncture / Unknown 07/23/2024 11:55 AM EDT 07/23/2024 11:58 AM EDT us Benny Joy MD LAB BLOOD ORDERABLES Final Result Performing Organization Address City/[facility]/[place] [address] * Phosphorus (07/23/2024 11:55 AM EDT) Phosphorus, Plasma 2.6 2.5 - 4.5 mg/dL 07/23/2024 12:25 PM EDT [facility] Blood Venous blood specimen / Unknown Venipuncture / Unknown 07/23/2024 11:55 AM EDT 07/23/2024 11:58 AM EDT us Benny Joy MD LAB BLOOD ORDERABLES Final Result [facility] [address] [place] [address] * (ABNORMAL) CBC w/diff (07/23/2024 11:55 AM EDT) Pathologist [facility] WBC Count 14.74(H) 3.70 - 10.30 10*3/uL LAB HEMATOLOGY METHOD 07/23/2024 12:01 PM EDT [facility] RBC Count 4.20(L) 4.60 - 6.10 10*6/uL LAB HEMATOLOGY METHOD 07/23/2024 12:01 PM EDT [facility] HGB 10.9(L) 13.7 - 17.5 g/dL LAB HEMATOLOGY METHOD 07/23/2024 12:01 PM EDT [facility] HCT 32.8(L) 40.0 - 51.0 % LAB HEMATOLOGY METHOD 07/23/2024 12:01 PM EDT [facility] Platelet Count 243 155 - 369 10*3/uL LAB HEMATOLOGY METHOD 07/23/2024 12:01 PM EDT [facility] MCV 78(L) 79 - 98 fL LAB HEMATOLOGY METHOD 07/23/2024 12:01 PM EDT [facility] MCH 26.0 26.0 - 32.0 pg LAB HEMATOLOGY METHOD 07/23/2024 12:01 PM EDT [facility] MCHC 33.2 30.7 - 35.5 g/dL LAB HEMATOLOGY METHOD 07/23/2024 12:01 PM EDT [facility] RDW 14.9(H) 11.5 - 14.5 % LAB HEMATOLOGY METHOD 07/23/2024 12:01 PM EDT [facility] MPV 9.5 8.8 - 12.5 fL LAB HEMATOLOGY METHOD 07/23/2024 12:01 PM EDT [facility] nRBC 0.0 <=0.0 per 100 WBCs LAB HEMATOLOGY METHOD 07/23/2024 12:01 PM EDT [facility] Differential Type Automated LAB HEMATOLOGY METHOD 07/23/2024 12:01 PM EDT [facility] Neutrophils % 85 % LAB HEMATOLOGY METHOD 07/23/2024 12:01 PM EDT [facility] Lymphocytes % 8 % LAB HEMATOLOGY METHOD 07/23/2024 12:01 PM EDT [facility] Monocytes % 6 % LAB HEMATOLOGY METHOD 07/23/2024 12:01 PM EDT [facility] Eosinophils % 0 % LAB HEMATOLOGY METHOD 07/23/2024 12:01 PM EDT [facility] Basophils % 0 % LAB HEMATOLOGY METHOD 07/23/2024 12:01 PM EDT [facility] Immature Granulocytes % 1 % LAB HEMATOLOGY METHOD 07/23/2024 12:01 PM EDT [facility] Neutrophils Absolute 12.58(H) 1.60 - 6.10 10*3/uL LAB HEMATOLOGY METHOD 07/23/2024 12:01 PM EDT [facility] Lymphocytes Absolute 1.15(L) 1.20 - 3.90 10*3/uL LAB HEMATOLOGY METHOD 07/23/2024 12:01 PM EDT [facility] Monocytes Absolute 0.93(H) 0.30 - 0.90 10*3/uL LAB HEMATOLOGY METHOD 07/23/2024 12:01 PM EDT [facility] Eosinophils Absolute 0.00 0.00 - 0.50 10*3/uL LAB HEMATOLOGY METHOD 07/23/2024 12:01 PM EDT [facility] Basophils Absolute 0.01 0.00 - 0.10 10*3/uL LAB HEMATOLOGY METHOD 07/23/2024 12:01 PM EDT [facility] Immature Granulocytes Absolute 0.07(H) 0.00 - 0.06 10*3/uL LAB HEMATOLOGY METHOD 07/23/2024 12:01 PM EDT [facility] Blood Venous blood specimen / Unknown Venipuncture / Unknown 07/23/2024 11:55 AM EDT 07/23/2024 11:58 AM EDT Narrative [facility] - 07/23/2024 12:01 PM EDT Therapeutic decision making should be based on absolute values, rather than percentages. us Benny Joy MD LAB BLOOD ORDERABLES Final Result [facility] [address] [place] [address] * (ABNORMAL) CMP (07/23/2024 11:55 AM EDT) Glucose, Plasma 115(H) 74 - 99 mg/dL 07/23/2024 12:25 PM EDT [facility] BUN, Plasma 17 8 - 23 mg/dL 07/23/2024 12:25 PM EDT [facility] Creatinine, Plasma 1.43(H) 0.70 - 1.20 mg/dL 07/23/2024 12:25 PM EDT [facility] BUN/Creatinine Ratio 12 07/23/2024 12:25 PM EDT [facility] Sodium, Plasma 129(L) 136 - 145 mmol/L 07/23/2024 12:25 PM EDT [facility] Potassium, Plasma 4.9 3.6 - 4.9 mmol/L 07/23/2024 12:25 PM EDT [facility] Chloride, Plasma 93(L) 97 - 107 mmol/L 07/23/2024 12:25 PM EDT [facility] CO2, Plasma 23 22 - 29 mmol/L 07/23/2024 12:25 PM EDT [facility] Anion Gap 13 6 - 16 mmol/L 07/23/2024 12:25 PM EDT [facility] Total Calcium, Plasma 9.6 8.9 - 10.2 mg/dL 07/23/2024 12:25 PM EDT [facility] Total Protein 7.2 6.3 - 7.9 g/dL 07/23/2024 12:25 PM EDT [facility] Albumin, Plasma 4.0 3.5 - 5.2 g/dL 07/23/2024 12:25 PM EDT [facility] AST, Plasma 40 10 - 50 U/L 07/23/2024 12:25 PM EDT [facility] ALT, Plasma 37 10 - 50 U/L 07/23/2024 12:25 PM EDT [facility] Alkaline Phosphatase, Plasma 110 40 - 115 U/L 07/23/2024 12:25 PM EDT [facility] Total Bilirubin, Plasma <0.2(L) 0.2 - 1.1 mg/dL 07/23/2024 12:25 PM EDT [facility] eGFRcr 56.1 mL/min/1.7 3m*2 07/23/2024 12:25 PM EDT [facility] Comment:Reported eGFRcr in m L/min/1.73m2 is based the CKD-EPI 2020 equation that does not use a race coefficient. Blood Venous blood specimen / Unknown Venipuncture / Unknown 07/23/2024 11:55 AM EDT 07/23/2024 11:58 AM EDT Benny Joy MD LAB BLOOD ORDERABLES Final Result [facility] [address] [place] [address] documented in this encounter Visit Diagnoses Diagnosis Acute cystitis without hematuria- Primary Nausea and vomiting, unspecified vomiting type Hyponatremia Hyposmolality and/or hyponatremia Malignant neoplasm of urinary bladder, unspecified site (CMS/HCC) documented in this encounter Administered Medications Inactive Administered Medications - up to 3 most recent administrations Medication Order MAR Action Action Date Dose Rate Site cefTRIAXone (Rocephin) 2 g in sodium chloride 0.9% 100 mL IVPB (vial adapter required) 2 g, Intravenous, Once, 1 dose, On Fri07/23/24 at 1905, STAT New Bag 07/23/2024 7:12 PM EDT 2 g 220 mL/hr dronabinol (Marinol) capsule 5 mg 5 mg, Oral, 2 times daily before meals, First dose on Fri07/24/24 at 0800, Until Discontinued, Routine Given 07/24/2024 7:29 AM EDT 5 mg fluticasone (Flonase) nasal spray 1 spray 1 spray, Each Nostril, Daily, First dose on Fri07/23/24 at 1920, Until Discontinued, Routine Given 07/24/2024 8:15 AM EDT 1 spray Given 07/23/2024 7:38 PM EDT 1 spray gabapentin (Neurontin) capsule 800 mg 800 mg, Oral, 3 times daily, First dose on Fri07/23/24 at 2100, Until Discontinued Given 07/24/2024 8:15 AM EDT 800 mg Given 07/23/2024 9:40 PM EDT 800 mg iohexol (OMNIPaque) 300 MG/ML injection 100 mL 100 mL, Intravenous, Once in imaging, 1 dose, Starting on Fri07/23/24 at 1212, Until Fri07/23/24 at 1345, Routine, Imaging Protocol Orders Given 07/23/2024 1:45 PM EDT 100 mL lactated Ringer's infusion 1,000 mL 1,000 mL, Intravenous, Once, 1 dose, On Fri07/23/24 at 1125, STAT New Bag 07/23/2024 11:58 AM EDT 1,000 mL lactated Ringer's infusion 1,000 mL 1,000 mL, Intravenous, Once, 1 dose, On Fri07/23/24 at 1905, STAT New Bag 07/23/2024 7:11 PM EDT 1,000 mL lactated Ringer's infusion 120 mL/hr, Intravenous, Continuous, Starting on Fri07/23/24 at 2015, Until Fri07/24/24 at 0906, Routine New Bag 07/23/2024 9:07 PM EDT 120 mL/hr 120 mL /hr levothyroxine (Synthroid, Levoxyl) tablet 125 mcg 125 mcg, Oral, Every morning, First dose on Fri07/24/24 at 0600, Until Discontinued Given 07/24/2024 6:48 AM EDT 125 mcg montelukast (Singulair) tablet 10 mg 10 mg, Oral, Nightly, First dose on Fri07/23/24 at 2100, Until Discontinued, Routine Given 07/23/2024 9:40 PM EDT 10 mg morphine CR (MS Contin) 12 hr tablet 15 mg 15 mg, Oral, 2 times daily, First dose on Fri07/23/24 at 2100, Until Discontinued, Routine Given 07/24/2024 8:12 AM EDT 15 mg Given 07/23/2024 9:40 PM EDT 15 mg morphine PF 4 mg 4 mg, Intravenous, Once, 1 dose, On Fri07/23/24 at 1230, STAT Given 07/23/2024 1:02 PM EDT 4 mg morphine PF 4 mg 4 mg, Intravenous, Once, 1 dose, On Fri07/23/24 at 1600, STAT Given 07/23/2024 4:09 PM EDT 4 mg morphine PF 4 mg 4 mg, Intravenous, Once, 1 dose, On Fri07/23/24 at 1920, STAT Given 07/23/2024 7:37 PM EDT 4 mg OLANZapine (ZyPREXA) tablet 10 mg 10 mg, Oral, Nightly, First dose on Fri07/23/24 at 2100, Until Discontinued, Routine Given 07/23/2024 9:40 PM EDT 10 mg ondansetron (Zofran) injection 4 mg 4 mg, Intravenous, Once, 1 dose, On Fri07/23/24 at 1230, STAT Given 07/23/2024 1:00 PM EDT 4 mg ondansetron (Zofran) injection 4 mg 4 mg, Intravenous, Every 6 hours PRN, Starting on Fri07/23/24 at 1901, Until 07/24/24 at 1127, STAT, vomiting, nausea ondansetron ODT (Zofran-ODT) disintegrating tablet 4 mg 4 mg, Oral, Every 8 hours PRN, Starting on Fri07/23/24 at 1914, Until 07/24/24 at 1127, STAT, nausea, vomiting Given 07/23/2024 9:39 PM EDT 4 mg oxybutynin XL (Ditropan-XL) 24 hr tablet 10 mg 10 mg, Oral, Daily, First dose on Fri07/23/24 at 1920, Until Discontinued Given 07/23/2024 7:37 PM EDT 10 mg oxyCODONE (Roxicodone) immediate release tablet 10 mg 10 mg, Oral, Once, 1 dose, On Fri07/23/24 at 1825, STAT Given 07/23/2024 6:39 PM EDT 10 mg oxyCODONE (Roxicodone) immediate release tablet 10 mg 10 mg, Oral, Every 6 hours scheduled, First dose on Fri07/23/24 at 1920, Until Discontinued, Routine Given 07/24/2024 6:48 AM EDT 10 mg Given 07/23/2024 11:33 PM EDT 10 mg pantoprazole (Protonix) EC tablet 40 mg 40 mg, Oral, Daily, First dose on Fri07/23/24 at 1920, Until Discontinued, Routine Given 07/24/2024 8:15 AM EDT 40 mg Given 07/23/2024 7:38 PM EDT 40 mg polyethylene glycol (Miralax) packet 17 g 17 g, Oral, Daily PRN, Starting on Fri07/23/24 at 1901, Until 07/24/24 at 1127, STAT, constipation polyethylene glycol (Miralax) packet 17 g 17 g, Oral, Daily, First dose on Fri07/23/24 at 1920, Until Discontinued Given 07/24/2024 8:15 AM EDT 17 g Given 07/23/2024 7:39 PM EDT 17 g senna (Senokot) tablet 8.6 mg 8.6 mg, Oral, Nightly PRN, Starting on Fri07/23/24 at 1901, Until 07/24/24 at 1127, STAT, constipation sodium chloride 0.9 % flush 10 mL 10 mL, Intravenous, Every 12 hours, First dose on Fri07/23/24 at 1905, Until Discontinued, Routine Given 07/24/2024 6:48 AM EDT 10 mL Given 07/23/2024 7:14 PM EDT 10 mL sodium chloride 0.9 % flush 10 mL 10 mL, Intravenous, As needed, Starting on Fri07/23/24 at 1900, Until 07/24/24 at 1127, Routine, line care tamsulosin (Flomax) 24 hr capsule 0.4 mg 0.4 mg, Oral, Daily, First dose on Fri07/23/24 at 1920, Until Discontinued, Routine Given 07/24/2024 8:15 AM EDT 0.4 mg Given 07/23/2024 7:37 PM EDT 0.4 mg documented in this encounter Active and Recently Administered Medications Times are shown in EDT. Scheduled Medication Order 07/22/2024 07/23/2024 07/24/2024 cefTRIAXone (Rocephin) 2 g in sodium chloride 0.9% 100 mL IVPB (vial adapter required) (COMPLETED) 2 g, Intravenous, Once, 1 dose, On Fri07/23/24 at 1905, STAT 1912 (New Bag - Provider: Olga Johnston)1945 (Stopped - Provider: Olga Johnston) dronabinol (Marinol) capsule 5 mg 5 mg, Oral, 2 times daily before meals, First dose on Fri07/24/24 at 0800, Until Discontinued, Routine 0729 (Given - Provid er: Shae Love RN) fluticasone (Flonase) nasal spray 1 spray 1 spray, Each Nostril, Daily, First dose on Fri07/23/24 at 1920, Until Discontinued, Routine 1938 (Given - Provider: Olga Johnston) 0815 (Given - Provider: Shae Love RN) gabapentin (Neurontin) capsule 800 mg 800 mg, Oral, 3 times daily, First dose on Fri07/23/24 at 2100, Until Discontinued 2140 (Given - Provider: Jewel Arreola RN) 0815 (Given - Provider: Shae Love RN) iohexol (OMNIPaque) 300 MG/ML injection 100 mL (COMPLETED) 100 mL, Intravenous, Once in imaging, 1 dose, Starting on Fri07/23/24 at 1212, Until Fri07/23/24 at 1345, Routine, Imaging Protocol Orders 1345 (Given - Provider: Pavel Larkin) lactated Ringer's infusion 1,000 mL (COMPLETED) 1,000 mL, Intravenous, Once, 1 dose, On Fri07/23/24 at 1125, STAT 1158 (New Bag - Provider: Hua Ledezma RN)1330 (Stopped - Provider: Hua Ledezma RN) lactated Ringer's infusion 1,000 mL (COMPLETED) 1,000 mL, Intravenous, Once, 1 dose, On Fri07/23/24 at 1905, STAT 1911 (New Bag - Provider: Olga Johnston)2230 (Stopped - Provider: Cal Stanford) levothyroxine (Synthroid, Levoxyl) tablet 125 mcg 125 mcg, Oral, Every morning, First dose on Fri07/24/24 at 0600, Until Discontinued 0648 (Given - Provid er: Chris Ortiz) montelukast (Singulair) tablet 10 mg 10 mg, Oral, Nightly, First dose on Fri07/23/24 at 2100, Until Discontinued, Routine 2139 (Given - Provider: Jewel Arreola RN) morphine CR (MS Contin) 12 hr tablet 15 mg 15 mg, Oral, 2 times daily, First dose on Fri07/23/24 at 2100, Until Discontinued, Routine 2139 (Given - Provider: Jewel Arreola RN) 0812 (Given - Provider: Shae Love, GIN) morphine PF 4 mg (COMPLETED) 4 mg, Intravenous, Once, 1 dose, On Fri07/23/24 at 1230, STAT 1302 (Given - Provider: Hua Ledezma RN) morphine PF 4 mg (COMPLETED) 4 mg, Intravenous, Once, 1 dose, On Fri07/23/24 at 1600, STAT 1609 (Given - Provider: Hua Ledezma RN) morphine PF 4 mg (COMPLETED) 4 mg, Intravenous, Once, 1 dose, On Fri07/23/24 at 1920, STAT 1937 (Given - Provider: Olga Johnston) OLANZapine (ZyPREXA) tablet 10 mg 10 mg, Oral, Nightly, First dose on Fri07/23/24 at 2100, Until Discontinued, Routine 2139 (Given - Provider: Jewel Arreola RN) ondansetron (Zofran) injection 4 mg (COMPLETED) 4 mg, Intravenous, Once, 1 dose, On Fri07/23/24 at 1230, STAT 1300 (Given - Provider: Hua Ledezma RN) oxybutynin XL (Ditropan-XL) 24 hr tablet 10 mg 10 mg, Oral, Daily, First dose on Fri07/23/24 at 1920, Until Discontinued 1936 (Given - Provider: Olga Johnston) 0812 (Not Given - Provider: Shae Love RN - Reason: Patient/family refused - Comment: patient reports he only takes at night) oxyCODONE (Roxicodone) immediate release tablet 10 mg (COMPLETED) 10 mg, Oral, Once, 1 dose, On Fri07/23/24 at 1825, STAT 1839 (Given - Provider: Hua Ledezma RN) oxyCODONE (Roxicodone) immediate release tablet 10 mg 10 mg, Oral, Every 6 hours scheduled, First dose on Fri07/23/24 at 1920, Until Discontinued, Routine 1922 (Not Given - Provider: Ishmael Brand, PharmD - Reason: Hold for condition: must add comment - Comment: Received one-time order)2333 (Given - Provider: Cal Stanford) 0648 (Given - Provider: Chris Ortiz) pantoprazole (Protonix) EC tablet 40 mg 40 mg, Oral, Daily, First dose on Fri07/23/24 at 1920, Until Discontinued, Routine 1937 (Given - Provider: Olga Johnston) 0815 (Given - Provider: Shae Love RN) polyethylene glycol (Miralax) packet 17 g 17 g, Oral, Daily, First dose on Fri07/23/24 at 1920, Until Discontinued 1938 (Given - Provider: Olga Johnston) 0815 (Given - Provider: Shae Love RN) sodium chloride 0.9 % flush 10 mL(Linked Group 1) 10 mL, Intravenous, Every 12 hours, First dose on Fri07/23/24 at 1905, Until Discontinued, Routine 1913 (Given - Provider: Olga Johnston) 0648 (Given - Provider: Chris Ortiz) tamsulosin (Flomax) 24 hr capsule 0.4 mg 0.4 mg, Oral, Daily, First dose on Fri07/23/24 at 1920, Until Discontinued, Routine 1936 (Given - Provider: Olga Johnston) 0815 (Given - Provider: Shae Love RN) Continuous Medication Order 07/22/2024 07/23/2024 07/24/2024 lactated Ringer's infusion 120 mL/hr, Intravenous, Continuous, Starting on Fri07/23/24 at 2015, Until 07/24/24 at 0906, Routine 2106 (New Bag - Provider: Olga Johnston) 0916 (Stopped - Provider: Shae Love RN) PRN Medication Order 07/22/2024 07/23/2024 07/24/2024 ondansetron (Zofran) injection 4 mg 4 mg, Intravenous, Every 6 hours PRN, Starting on Fri07/23/24 at 1901, Until 07/24/24 at 1127, STAT, vomiting, nausea ondansetron ODT (Zofran-ODT) disintegrating tablet 4 mg 4 mg, Oral, Every 8 hours PRN, Starting on Fri07/23/24 at 1914, Until 07/24/24 at 1127, STAT, nausea, vomiting 2138 (Given - Provider: Jewel Arreola RN) polyethylene glycol (Miralax) packet 17 g 17 g, Oral, Daily PRN, Starting on Fri07/23/24 at 1901, Until 07/24/24 at 1127, STAT, constipation senna (Senokot) tablet 8.6 mg 8.6 mg, Oral, Nightly PRN, Starting on Fri07/23/24 at 1901, Until 07/24/24 at 1127, STAT, constipation sodium chloride 0.9 % flush 10 mL(Linked Group 1) 10 mL, Intravenous, As needed, Starting on Fri07/23/24 at 1900, Until 07/24/24 at 1127, Routine, line care Linked Groups Order Group 1: Insert peripheral IV (CANCELED) Once, On Fri07/23/24 at 1901, For 1 occurrence And Saline lock IV (CANCELED) Once, On Fri07/23/24 at 1901, For 1 occurrence And sodium chloride 0.9 % flush 10 mLJump to med 10 mL, Intravenous, Every 12 hours, First dose on Fri07/23/24 at 1905, Until Discontinued, Routine And sodium chloride 0.9 % flush 10 mLJump to med 10 mL, Intravenous, As needed, Starting on Fri07/23/24 at 1900, Until 07/24/24 at 1127, Routine, line care documented in this encounter Additional Health Concerns Assessment Noted Time PHQ-9 Depression Total Score: 0 07/15/19 12:22 PM EDT A fall risk assessment has been complete d for the patient 07/14/2024 12:22 PM EDT A Body Mass Index follow-up plan has been documented for the patient 05/27/2024 1:13 PM EDT documented as of this encounter Care Teams Rug Clipper Relationship Specialty Start Date End Date Efren Roy DO [address] [place] [id number] PCP - General 03/04/23 Efren Roy DO [address] [place] [address] Pain Medicine 01/03/23 Rosa Maria Bel[place]an APRN [address] [facility] [address] [place] [phone] Nurse Practitioner Family Medicine 07/21/23 Bobby Vazquez MD [address] [facility] [address] [place] [phone] Consulting Physician Medical Oncology 09/17/23 Cally Henderson PA [address] [facility] [address] [place] [id number] Physician Marketing Editor Urology 09/17/23 documented as of this encounter
--- OUTSIDE RECORDS SUMMARY | 2024-07-27 18:26 | XMS_ITS | Encounter Summary ---
Author Organization Healthcare Address [address] [place] [address] Care Team Providers Care Janitor Caretaker Name Role Phone Efren Roy DO Unavailable [phone] Efren Roy DO Primary Care Provider [phone] Rosa Maria Beltran APRN Unavailable [phone] Bobby Vazquez MD Unavailable Cally Henderson Unavailable [phone] Reason for Visit * Reason Comments Abdominal Pain Constipation * Auth/Cert (Routine) Specialty Diagnoses / Procedures Referred By Contac t Referred To Contact Diagnoses Hydronephrosis Hydronephrosis with renal and ureteral calculus obstruction Hydronephrosis, unspecified hydronephrosis type Adal Franklin MD [address] [facility] [address] [place] [address] Phone: tel: fax: [facility] [address] [place] [address] Phone: tel: Referral ID Status Reason Start Date Expiration Date Visits Re quested Visits Authorized [id number] 1 1 Encounter Details Date Type Department Care Team (Late st Contact Info) Description 07/27/2024 6:26 PM EDT - 07/28/2024 3:44 PM EDT Hospital Encounter [facility] [address] [place] [address] Jin Clark MD [address] [place] [address] Lincoln Arnold MD [address] [place] [address] Adal Franklin MD [address] [facility] [address] [place] [address] Hydronephrosis with renal and ureteral [...] place to sleep or slept in a residential (including now)? No 02/28/2023 PHQ-9 Answer Date [...] any time in the past 12 m [facility], were you homeless or living in a residential (including now)? No 05/27/2024 CAGE ASSESSMENT Answer [...] drink first t tianna in the morning (EYE-TAVERN KEEPER) to steady your nerves or to get [...] confirm your location ahead of your appointment) [facility] Urology Department Clinic at [address], 2nd Floor, [facility], [address] [place] [address] Clinic After Hours [facility] Office Building Urology Clinic [address] [facility] [address] [place] [address] Clinic After Hours documented in this encounter [...] by mouth 2 (two) times a day. 06073 mL 5 06/16/2024 ondansetron ODT (Zofran-ODT) 4 [...] a day as needed for muscle spasms. phenazopyridine (Pyridium) 200 MG tablet Take 1 [...] needed for anxiety. 30 capsule 02/27/2024 5 lactulose (Kristalose) 10 g packetIndications:M alignant [...] of this encounter Miscellaneous Notes * Odessa Ames, RN - 07/28/2024 2:30 PM EDT Images [...] at . Nights, weekends and holidays, call [facility] at and ask for the Urology Resident distribution center manager. Call [phone] if you have any of the following [...] Agree with above assessment and evaluation from resident/BEER COOLER. * Op Note - Efren Knight MD - 07/28/2024 1:22 PM EDT Operative Note Date: 07/28/24 Location: [facility] Name: Adrián Goode, : 1965, Diagnoses: Pre-op Diagnosis Hydronephrosis with renal and ureteral calculus obstruction Post-op Diagnosis Hydronephrosis with renal and ureteral calculus obstruction Procedure(s): Cystoscopy with right retrograde pyelogram Right ureteral stent exchange Attending Surgeon(s): * Gloria Velasquez - Primary Manager Real Estate(s): * Efren Knight MD - Resident - Assisting Anesthesia: General ASA: III Blood Administration: Blood Product Administration History Date Volume Status Transfuse RBC 04/05/2023 1000 mL Completed 04/05/232006 Estimated Blood Loss: Minimal Drains: * None in log * Implants Type Name Action Serial No. Stent STENT URETERAL TRIA [employer]M MONOFILAMENT [id number]/[id number] - [id number] Implanted Specimen: Specimens ID Source Frozen? A [...] Olivas DO PGY-3, Department of Urology Pager: [phone] Cosigned by Gloria Velasquez MD at 07/28/2024 12:51 PM EDT Associated attestation - Gloria Velasquez MD - 07/28/2024 12:51 PM EDT I saw and evaluated the patient. I discussed the case with the resident/fellow and agree with the findings and plan as documented. Gloria Velasquez MD * H&P - German Franklin MD - 07/27/2024 11:42 PM EDTAssociated Order(s): Consult to Urology Consult to Urology Consult performed by: Geramn Franklin MD Consult ordered by: Jin Clark MD [facility] Urology Consult Note 07/27/24 Service Requesting Consultation: [...] admit to uro obs - npo at [place] - to OR for cysto, right stent exchange as TSA; paper consent obtained and placed in chart - mIVF - Unasyn based on ucx from 07/23 which grew sung-sensitive E. faecalis - resume home meds as appropriate - SQH for DVT PPX Komal Franklin MD PGY-3 Urology [1] Past Medical History: Diagnosis Date Acute kidney failure, unspecified ([facility]) 02/28/2023 Adverse effect of anesthesia aspirated during colonoscopy few yrs. ago - also DDD cervical area Bladder cancer ([facility]) 12/2022 Cancer ([facility]) thyroid - surgery only Cervicalgia Neck pain [...] Procedure Laterality Date COLONOSCOPY PORTACATH PLACEMENT Right DC CYSTO/URETERO/PYELOSCOPY, DX Right 12/20/2022 Procedure: DIAGNOSTIC URETEROSCOPY; Surgeon: Sunday Lopez MD; Location: [facility]; Service: Urology THYROID SURGERY N/A [facility] UPPER GASTROINTESTINAL ENDOSCOPY [3] Family [...] 07/29/2024 1:26 PM EDT Associated attestation - Adal Franklin MD - 07/29/2024 1:26 PM EDT [...] tract infection. He was discharged in hemodynamically stablecondition with improving CARLOS. He was called today [...] time. Psychiatric: Mood and Affect: Mood normal. Bradley Coma Scale Score: 15 ED Course & [...] 0001 Out of Bed Until discontinued Ordered FRANKLINGERMAN M 07/28/24 0001 Notify Provider Until discontinued Ordered FRANKLINLISBETHGERMAN M 07/28/24 0001 Vital Signs (Every 4 hours) Every 4 hours Ordered FRANKLIN, GERMAN M 07/28/24 0001 Check pulse oximetry (Every 4 hours) Every 4 hours Ordered FRANKLIN, GERMAN M 07/28/24 0001 Intake and Output (Every 4 hours) Every 4 hours Ordered FRANKLIN, GERMAN M 07/28/24 0001 Insert peripheral IV Once Placed in And Linked Group Ordered FRANKLIN, GERMAN M 07/28/24 0001 Saline lock IV Once Placed in And Linked Group Ordered FRANKLIN, GERMAN M 07/28/24 0001 Do NOT transfer patient to [facility] without chief resident or attending apporval Until discontinued Ordered FRANKLIN, GERMAN M 07/28/24 0001 Initiate observation status Once Ordered FRANKLIN, GERMAN M 07/28/24 0001 Full code Continuous Ordered FRANKLIN, GERMAN M 07/27/242237 Consult to Urology Once Specialty: Urology [...] None Disposition Admit Admitting/Attending Physician: ADAL FRANKLIN [[id number]] Provider Care Team: URO ONCOLOGY [[id number]] Are [...] Procedure Laterality Date COLONOSCOPY PORTACATH PLACEMENT Right DC CYSTO/URETERO/PYELOSCOPY, DX Right 12/20/2022 Procedure: DIAGNOSTIC URETEROSCOPY; Surgeon: Sunday Lopez MD; Location: [facility]; Service: Urology THYROID SURGERY N/A Thyroid Surgery from [facility] UPPER GASTROINTESTINAL ENDOSCOPY [3] Family History Problem [...] 9:30 AM EDT Office Visit [facility] Multidisciplinary Oncology Clinic [address] [place] [address] Sara Tesfaye, INTELLIGENT SYSTEMS ENGINEER [address] [facility] Shantel Cooper [address] [phone] 08/27/2024 1:00 PM EDT Office Visit [facility] Multidisciplinary Oncology Clinic [address] [place] [address] Bobby Vazquez MD [address] [facility] Shantel Cooper [address] [phone] 08/27/2024 1:00 PM EDT Clinical Support [facility] Multidisciplinary Oncology Clinic [address] [place] [address] 08/27/2024 2:30 PM EDT Appointment [facility] Infusion Clinic [address] [place] [address] 09/17/2024 2:30 PM EDT Appointment [facility] Infusion Clinic [address] [place] [address] 10/08/2024 2:30 PM EDT Appointment [facility] Infusion Clinic [address] [place] [address] 10/19/2024 11:30 AM EDT Office Visit [facility] Multidisciplinary Oncology Clinic [address] [place] [address] Kym Romero, INTELLIGENT SYSTEMS ENGINEER [address] [facility] Shantel Cooper [address] [phone] 11/24/2024 11:00 AM EDT Office Visit [facility] Multidisciplinary Oncology Clinic [address] [place] [address] Adal Franklin MD [address] [place] [address] 12/15/2024 1:00 PM EDT Office Visit [facility] [address] [place] [address] Efren Fallon MD [address] [place] [address] 12/29/2024 9:30 AM EDT Clinical Support [facility] [address] [facility] [place] [address] 12/29/2024 10:00 AM EDT Office Visit [facility] [address] [facility] [place] [address] Carlito Mccartney MD [address] [facility] [address] [place] [phone] 03/23/2025 10:40 AM EST Office Visit [facility] [address] [facility] [place] [phone] Arabella Romero, INTELLIGENT SYSTEMS ENGINEER [address] [place] [phone] documented as of this encounter Procedures Procedure Name Priority Date/Time Associated Diagnosis Comments FL LESS THAN 1 HOUR (NON-REPORTABLE) Routine 07/28/2024 1:42 PM EDT URINE CULTURE Routine 07/28/2024 1:32 PM EDT Hydronephrosis with renal and ureteral calculus obstruction DC CYSTOSCOPY,INSERT URETERAL STENT 07/28/2024 12:39 PM EDT [...] at day 1 07/29/2024 11:09 AM EDT [facility] Urine Right kidney structure / Unknown 07/28/2024 1:32 PM EDT 07/28/2024 2:03 PM EDT Comment:Pre-op diagnosis: Hydronephrosis with renal and ureteral calculus obstruction [N13.2] us Gloria Velasquez MD LAB MICROBIOLOGY - GENERAL O RDERABLES Final Result [facility] [address] [place] [address] * CT Abdomen Pelvis w IV Contrast [...] 7:51 PM EDT 07/27/2024 7:54 PM EDT Jin Clark MD LAB URINE ORDERABLES Fi nal Result [facility] [address] [place] [address] * Urine [place] Panel (07/27/2024 7:51 PM EDT) Extra Reflex urine culture not indicated 07/27/2024 10:01 PM EDT [facility] Urine Urine specimen obtained by clean catch procedure / Unknown Non-blood Collection / Unknown 07/27/2024 7:51 PM EDT 07/27/2024 8:04 PM EDT Jin Clark MD LAB URINE ORDERABLES Fi nal Result Performing Organization Address City/[facility]/ZIP Co de Phone Number [facility] [address] [place] [address] * (ABNORMAL) Urinalysis with reflex microscopic (Culture NOT Included) (07/27/2024 7:51 PM EDT) Color, Urine Dark Yellow LAB URINALYSIS - AUTOMATED METHOD 07/27/2024 9:44 PM EDT [facility] Clarity, Urine Clear LAB URINALYSIS - AUTOMATED METHOD 07/27/2024 9:44 PM EDT [facility] Spec [place], Urine 1.008 1.005 - 1.030 LAB URINALYSIS - AUTOMATED METHOD 07/27/2024 9:44 PM EDT [facility] pH, Urine 7.0 5.0 - 8.0 LAB URINALYSIS - AUTOMATED METHOD 07/27/2024 9:44 PM EDT [facility] Protein, Urine 100(A) Negative mg/dL LAB URINALYSIS - AUTOMATED METHOD 07/27/2024 9:44 PM EDT [facility] Glucose, Urine Negative Negative mg/dL LAB URINALYSIS - AUTOMATED METHOD 07/27/2024 9:44 PM EDT [facility] Ketones, Urine Negative Negative mg/dL LAB URINALYSIS - AUTOMATED METHOD 07/27/2024 9:44 PM EDT [facility] Blood, Urine Large(A) Negative LAB URINALYSIS - AUTOMATED METHOD 07/27/2024 9:44 PM EDT [facility] Bilirubin, Urine Negative Negative LAB URINALYSIS - AUTOMATED METHOD 07/27/2024 9:44 PM EDT [facility] Urobilinogen, Urine 1.0 0.2 to 1.0 mg/dL LAB URINALYSIS - AUTOMATED METHOD 07/27/2024 9:44 PM EDT [facility] Leukocytes, Urine Small(A) Negative LAB URINALYSIS - AUTOMATED METHOD 07/27/2024 9:44 PM EDT [facility] Nitrite, Urine Positive(A) Negative LAB URINALYSIS - AUTOMATED METHOD 07/27/2024 9:44 PM EDT [facility] RBC, Urine 3 0 to 3 /HPF LAB URINALYSIS - AUTOMATED METHOD 07/27/2024 9:44 PM EDT [facility] Comment: Confirmed This result was previously suppressed from the chart. WBC, Urine 0 - 5 0 to 5 /HPF LAB URINALYSIS - AUTOMATED METHOD 07/27/2024 9:44 PM EDT [facility] Comment:This result was prev iously suppressed from the chart. Squamous Epithelial Cells 0 - 2 0 to 5 /HPF LAB URINALYSIS - AUTOMATED METHOD 07/27/2024 9:44 PM EDT [facility] Comment:This result was prev iously suppressed from the chart. Hyaline Casts 0 - 2 0 to 5 /LPF LAB URINALYSIS - AUTOMATED METHOD 07/27/2024 9:44 PM EDT [facility] Comment:This result was prev iously suppressed from the chart. Bacteria, Urine Present Negative LAB URINALYSIS - AUTOMATED METHOD 07/27/2024 9:44 PM EDT [facility] Comment:This result was prev iously suppressed from the chart. Urine Urine specimen obtained by clean catch procedure / Unknown Non-blood Collection / Unknown 07/27/2024 7:51 PM EDT 07/27/2024 7:54 PM EDT Narrative [facility] - 07/27/2024 9:44 PM EDT Performed by manual method us Jin Clark MD LAB URINE ORDERABLES Fi nal Result [facility] [address] [place] [address] * Procalcitonin (07/27/2024 6:50 PM EDT) Procalcitonin, Plasma 0.07 <0.09 ng/mL 07/27/2024 7:45 PM EDT [facility] Blood Venous blood specimen / Unknown Venipuncture / Unknown 07/27/2024 6:50 PM EDT 07/27/2024 7:04 PM EDT Narrative [facility] - 07/27/2024 7:45 PM EDT [...] predict 28 day mortality risk. Please consult www.ytfnxr-wkw-kdtqrttwhl.com for more information. Test performed at [facility] Laboratory. Jin Clark MD LAB BLOOD ORDERABLES Fi nal Result [facility] [address] [place] [address] * Lactic acid, venous (07/27/2024 6:50 PM EDT) Lactate, Venous, Whole Blood 1.9 0.5 - 2.2 mmol/L LAB HEMATOLOGY METHOD 07/27/2024 7:14 PM EDT [facility] Blood Venous blood specimen / Unknown Venipuncture / Unknown 07/27/2024 6:50 PM EDT 07/27/2024 7:09 PM EDT Jin Clark MD LAB BLOOD ORDERABLES Fi nal Result [facility] [address] [place] [address] * Lipase (07/27/2024 6:50 PM EDT) Lipase, Plasma 25 19 - 63 U/L 07/27/2024 7:45 PM EDT [facility] Blood Venous blood specimen / Unknown Venipuncture / Unknown 07/27/2024 6:50 PM EDT 07/27/2024 7:04 PM EDT us Jin Clark MD LAB BLOOD ORDERABLES Fi nal Result [facility] [address] [place] [address] * (ABNORMAL) CMP (07/27/2024 6:50 PM EDT) Glucose, Plasma 100(H) 74 - 99 mg/dL 07/27/2024 7:45 PM EDT [facility] BUN, Plasma 11 8 - 23 mg/dL 07/27/2024 7:45 PM EDT [facility] Creatinine, Plasma 1.16 0.70 - 1.20 mg/dL 07/27/2024 7:45 PM EDT [facility] BUN/Creatinine Ratio 9 07/27/2024 7:45 PM EDT [facility] Sodium, Plasma 131(L) 136 - 145 mmol/L 07/27/2024 7:45 PM EDT [facility] Potassium, Plasma 4.1 3.6 - 4.9 mmol/L 07/27/2024 7:45 PM EDT [facility] Chloride, Plasma 95(L) 97 - 107 mmol/L 07/27/2024 7:45 PM EDT [facility] CO2, Plasma 23 22 - 29 mmol/L 07/27/2024 7:45 PM EDT [facility] Anion Gap 13 6 - 16 mmol/L 07/27/2024 7:45 PM EDT [facility] Total Calcium, Plasma 9.2 8.9 - 10.2 mg/dL 07/27/2024 7:45 PM EDT [facility] Total Protein 7.0 6.3 - 7.9 g/dL 07/27/2024 7:45 PM EDT [facility] Albumin, Plasma 3.8 3.5 - 5.2 g/dL 07/27/2024 7:45 PM EDT [facility] AST, Plasma 48 10 - 50 U/L 07/27/2024 7:45 PM EDT [facility] ALT, Plasma 37 10 - 50 U/L 07/27/2024 7:45 PM EDT [facility] Alkaline Phosphatase, Plasma 109 40 - 115 U/L 07/27/2024 7:45 PM EDT [facility] Total Bilirubin, Plasma 0.2 0.2 - 1.1 mg/dL 07/27/2024 7:45 PM EDT [facility] eGFRcr 72.1 mL/min/1.7 3m*2 07/27/2024 7:45 PM EDT [facility] Comment:Reported eGFRcr in m L/min/1.73m2 is based the CKD-EPI 2020 equation that does not use a race coefficient. Blood Venous blood specimen / Unknown Venipuncture / Unknown 07/27/2024 6:50 PM EDT 07/27/2024 7:04 PM EDT us Jin Clark MD LAB BLOOD ORDERABLES Fi nal Result [facility] [address] [place] [address] * (ABNORMAL) CBC w/diff (07/27/2024 6:50 PM EDT) WBC Count 9.93 3.70 - 10.30 10*3/uL LAB HEMATOLOGY METHOD 07/27/2024 7:46 PM EDT [facility] RBC Count 4.06(L) 4.60 - 6.10 10*6/uL LAB HEMATOLOGY METHOD 07/27/2024 7:46 PM EDT [facility] HGB 10.5(L) 13.7 - 17.5 g/dL LAB HEMATOLOGY METHOD 07/27/2024 7:46 PM EDT [facility] HCT 32.2(L) 40.0 - 51.0 % LAB HEMATOLOGY METHOD 07/27/2024 7:46 PM EDT [facility] Platelet Count 249 155 - 369 10*3/uL LAB HEMATOLOGY METHOD 07/27/2024 7:46 PM EDT [facility] MCV 79 79 - 98 fL LAB HEMATOLOGY METHOD 07/27/2024 7:46 PM EDT [facility] MCH 25.9(L) 26.0 - 32.0 pg LAB HEMATOLOGY METHOD 07/27/2024 7:46 PM EDT [facility] MCHC 32.6 30.7 - 35.5 g/dL LAB HEMATOLOGY METHOD 07/27/2024 7:46 PM EDT [facility] RDW 15.7(H) 11.5 - 14.5 % LAB HEMATOLOGY METHOD 07/27/2024 7:46 PM EDT [facility] MPV 9.8 8.8 - 12.5 fL LAB HEMATOLOGY METHOD 07/27/2024 7:46 PM EDT [facility] nRBC 0.0 <=0.0 per 100 WBCs LAB HEMATOLOGY METHOD 07/27/2024 7:46 PM EDT [facility] Differential Type Automated LAB HEMATOLOGY METHOD 07/27/2024 7:46 PM EDT [facility] Neutrophils % 77 % LAB HEMATOLOGY METHOD 07/27/2024 7:46 PM EDT [facility] Lymphocytes % 11 % LAB HEMATOLOGY METHOD 07/27/2024 7:46 PM EDT [facility] Monocytes % 10 % LAB HEMATOLOGY METHOD 07/27/2024 7:46 PM EDT [facility] Eosinophils % 1 % LAB HEMATOLOGY METHOD 07/27/2024 7:46 PM EDT [facility] Basophils % 0 % LAB HEMATOLOGY METHOD 07/27/2024 7:46 PM EDT [facility] Immature Granulocytes % 1 % LAB HEMATOLOGY METHOD 07/27/2024 7:46 PM EDT [facility] Neutrophils Absolute 7.63(H) 1.60 - 6.10 10*3/uL LAB HEMATOLOGY METHOD 07/27/2024 7:46 PM EDT [facility] Lymphocytes Absolute 1.11(L) 1.20 - 3.90 10*3/uL LAB HEMATOLOGY METHOD 07/27/2024 7:46 PM EDT [facility] Monocytes Absolute 1.02(H) 0.30 - 0.90 10*3/uL LAB HEMATOLOGY METHOD 07/27/2024 7:46 PM EDT [facility] Eosinophils Absolute 0.06 0.00 - 0.50 10*3/uL LAB HEMATOLOGY METHOD 07/27/2024 7:46 PM EDT [facility] Basophils Absolute 0.03 0.00 - 0.10 10*3/uL LAB HEMATOLOGY METHOD 07/27/2024 7:46 PM EDT [facility] Immature Granulocytes Absolute 0.08(H) 0.00 - 0.06 10*3/uL LAB HEMATOLOGY METHOD 07/27/2024 7:46 PM EDT [facility] Blood Venous blood specimen / Unknown Venipuncture / Unknown 07/27/2024 6:50 PM EDT 07/27/2024 7:04 PM EDT Narrative [facility] - 07/27/2024 7:46 PM EDT Therapeutic decision making should be based on absolute values, rather than percentages. us Jin Clark MD LAB BLOOD ORDERABLES Fi nal Result [facility] [address] [place] [address] documented in this encounter Visit Diagnoses Diagnosis [...] - Provider: Re Mcmahon - Reason: NPO)1037 (MAY Hold - Provider: Automatic Transfer Provider - Reason: Patient in procedure)1200 (Dose Auto Held - Provider: Automatic Transfer Provider)1744 (MAY Unhold - Provider: Automatic Discharge Provider) ampicillin-sulbactam [...] er: Re Mcmahon)0800 (Given - Provider: Marilee Quiroga RN)1037 (MAY Hold - Provider: Automatic Transfer Provider - Reason: Patient in procedure)1744 (MAY Unhold - Provider: Automatic Discharge Provider) enoxaparin (Lovenox) syringe 40 mg 40 mg, Subcutaneous, Every 24 hours scheduled, First dose on Fri07/28/24 at 0900, Until Discontinued, Routine 0800 (Not Given - Provider: Marilee Quiroga RN - Reason: Patient/family refused)1037 (MAY Hold - Provider: Automatic Transfer Provider - Reason: Patient in procedure)1744 (MAY Unhold - Provider: Automatic Discharge Provider) HYDROmorphone (Dilaudid) injection 0.5 mg (COMPLETED) 0.5 mg, Intravenous, Once, 1 dose, On Fri07/27/24 at 2125, Routine 2124 (Given - Provider: Indiana Rascon, RN) iohexol [...] at 1855, Administer over 2 Hours, Routine 1857 (New Bag - Provider: Karma Hopkins)2058 (Stopped - Provider: Indiana Rascon, RN) lactated Ringer's infusion 20 mL/hr, Intravenous, Once, [...] Karma Hopkins)1937 (Stopped - Provider: Ara Woodruff, GIN) Povidone-Iodine 5 % swab solution 1 Application [...] 0137 (Given - Provid er: Re Mcmahon)1037 (MAR Hold - Provider: Automatic Transfer Provider - Reason: Patient in procedure)1744 (MAR Unhold - Provider: Automatic Discharge Provider) Continuous Medication Order 07/26/2024 07/27/2024 07/28/2024 lactated Ringer's infusion 75 mL/hr, Intravenous, Continuous, Starting on Fri07/28/24 at 0005, Until Fri07/28/24 at 1744, Routine 0142 (New Bag - Prov ider: Re Mcmahon)0746 (Paused - Provider: Marilee Quiroga, GIN)0942 (Restarted - Provider: Marilee Quiroga, GIN)1253 (Paused - Provider: Miriam Mayfield CRNA - [...] (Given - Provid er: Marilee Quiroga RN)1037 ([facility] Hold - Provider: Automatic Transfer Provider - Reason: Patient in procedure)1744 ([facility] Unhold - Provider: Automatic Discharge Provider) iohexol (OMNIPaque) 300 MG/ML injection (CANCELED) As needed, Starting on Fri07/28/24 at 1200, Until Fri07/28/24 at 1348, Routine, Intraprocedure 1322 (Given - Provid er: Gloria Velasquez MD) ondansetron (Zofran) injection 4 mg 4 mg, Intravenous, Every 6 hours PRN, Starting on Fri07/28/24 at 0001, Until Fri07/28/24 at 1744, Routine, nausea, vomiting 1037 ([facility] Hold - Pro vider: Automatic Transfer Provider - Reason: Patient in procedure)1744 ([facility] Unhold - Provider: Automatic Discharge Provider) ondansetron (Zofran) injection 4 mg 4 mg, Intravenous, Once as needed, 1 dose, Starting on Fri07/28/24 at 1338, Until Fri07/28/24 at 1744, Routine, Recovery (Phase I only), nausea, vomiting oxyCODONE (Roxicodone) immediate release tablet 10 mg 10 mg, Oral, Every 6 hours PRN, Starting on Fri07/28/24 at 0656, Until Fri07/28/24 at 1744, Routine, severe pain 1037 ([facility] Hold - Pro vider: Automatic Transfer Provider - Reason: Patient in procedure)1744 ([facility] Unhold - Provider: Automatic Discharge Provider) oxyCODONE [...] at 1744, Routine, pain, discomfort, irritation 1037 ([facility] Hold - Pro vider: Automatic Transfer Provider - Reason: Patient in procedure)1744 ([facility] Unhold - Provider: Automatic Discharge Provider) sodium chloride 0.9 % flush 10 mL(Linked Group 1) 10 mL, Intravenous, As needed, Starting on Fri07/27/24 at 2359, Until Fri07/28/24 at 1744, Routine, line care 1037 ([facility] Hold - Pro vider: Automatic Transfer Provider - Reason: Patient in procedure)1744 ([facility] Unhold - Provider: Automatic Discharge Provider) sodium [...] documented as of this encounter Care Teams Janitor Caretaker Relationship Specialty Start Date End Date Efren Roy DO [address] [place] [address] PCP - General 03/04/23 Efren Roy DO [address] [place] [address] Pain Medicine 01/03/23 Rosa Maria Beltran APRN [address] [place] [address] [address] [place] [address] Nurse Practitioner Family Medicine 07/21/23 Bobby Vazquez MD [address] [facility] [address] [place] [address] Consulting Physician Medical Oncology 09/17/23 Cally Henderson PA [address] [facility] [address] [place] [address] Physician Manager Real Estate Urology 09/17/23 documented as of this encounter
--- OUTSIDE RECORDS SUMMARY | 2024-07-28 09:45 | XMS_ITS | Encounter Summary ---
Author Organization Healthcare Address [address] [place] [address] Care Team Providers Care Supervisor Major [employer]liance [employer] Name Role Phone Efren Roy DO Unavailable [phone] Efren Roy DO Primary Care Provider [phone] Rosa Maria Beltran APRN Unavailable [phone] Bobby Vazquez MD Unavailable Cally Henderson Unavailable [phone] Reason for Visit * Reason Comments Abdominal Pain Constipation * Auth/Cert (Routine) Specialty Diagnoses / Procedures Referred By Contac t Referred To Contact Diagnoses Hydronephrosis Hydronephrosis with renal and ureteral calculus obstruction Hydronephrosis, unspecified hydronephrosis type Adal Franklin MD [address] [facility] [address] [place] [address] Phone: tel: fax: [facility] [address] [place] [address] Phone: tel: Referral ID Status Reason Start Date Expiration Date Visits Re quested Visits Authorized [id number] 1 1 Encounter Details Date Type Department Care Team ([facility] st Contact Info) Description 07/28/2024 9:45 AM EDT - 07/28/2024 11:05 AM EDT Surgery [facility] [address] [place] [address] Gloria Velasquez MD [address] [place] [phone] CYSTOSCOPY, WITH URETERAL STENT INSERTION [81177 (CPT )] Surgery Details Date/Time Status Location OR Service Patient Class Case Class Case Type Trauma Case? 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) to steady your nerves or to get [...] Sign Reading Time Taken Comments Blood Pressure 104/63 07/28/2024 10:58 AM EDT Pulse 104 07/28/2024 10:58 AM EDT Temperature 36.8 C (98.3 F) 07/28/2024 10:58 AM EDT Respiratory Rate 17 07/28/2024 6:21 AM EDT Oxygen Saturation 97% 07/28/2024 10:58 AM EDT Inhaled Oxygen Concentration - - [...] confirm your location ahead of your appointment) [facility] Urology Department Clinic at [address], [address] Floor, [facility], [address] [place] [address] Clinic After Hours [facility] Urology Clinic [address] [facility] [address] [place] [address] Clinic After Hours documented in this encounter [...] by mouth 2 (two) times a day. 09988 mL 5 06/16/2024 ondansetron ODT (Zofran-ODT) 4 [...] at . Nights, weekends and holidays, call [facility] at and ask for the Urology Resident director of retail operations. Call 1 if you have any of the following [...] Agree with above assessment and evaluation from resident/RN UNIT MANAGER. * Op Note - Efren Knight MD - 07/28/2024 1:22 PM EDT Operative Note Date: 07/28/24 Location: [facility] Name: Adrián Goode, : 1965, Diagnoses: Pre-op Diagnosis Hydronephrosis with renal and ureteral calculus obstruction Post-op Diagnosis Hydronephrosis with renal and ureteral calculus obstruction Procedure(s): Cystoscopy with right retrograde pyelogram Right ureteral stent exchange Attending Surgeon(s): * Gloria Velasquez - Primary Volunteer Manager(s): * Efren Knight MD - Resident - Assisting Anesthesia: General ASA: III Blood Administration: Blood Product Administration History Date Volume Status Transfuse RBC 04/05/2023 1000 mL Completed 04/05/232006 Estimated Blood Loss: Minimal Drains: * None in log * Implants Type Name Action Serial No. Stent STENT URETERAL [employer]A [employer] MONOFILAMENT [id number]/[id number] - [id number] Implanted Specimen: Specimens ID Source Frozen? A [...] Olivas DO PGY-3, Department of Urology Pager: [phone] Cosigned by Gloria Velasquez MD at 07/28/2024 [...] MD Consult ordered by: Jin Clark MD [facility] Urology Consult Note 07/27/24 Service [...] admit to uro obs - npo at [place] - to OR for cysto, right stent [...] - also DDD cervical area Bladder cancer (CMS/[facility]) 12/2022 Cancer ([facility]) thyroid - surgery only Cervicalgia Neck [...] Procedure Laterality Date COLONOSCOPY PORTACATH PLACEMENT Right [place] CYSTO/URETERO/PYELOSCOPY, DX Right 12/20/2022 Procedure: DIAGNOSTIC URETEROSCOPY; Surgeon: Sunday Lopez MD; Location: [facility]; Service: Urology THYROID SURGERY N/A Thyroid Surgery from [facility] UPPER GASTROINTESTINAL ENDOSCOPY [3] Family History Problem [...] Scheduled GERMAN FRANKLIN 07/31/24 0400 Scheduled GERMAN RFANKLIN 08/01/24 0400 Scheduled GERMAN FRANKLIN 08/02/24 0400 Scheduled GERMAN FRANKLIN Ordered GERMAN FRANKLIN 07/28/24 0001 Basic metabolic panel Morning draw Start Status Ordering Provider 07/29/24 0400 Scheduled GERMAN FRANKLIN 07/30/24 0400 Scheduled GERMAN FRANKLIN 07/31/24 0400 Scheduled GERMAN FRANKLIN 08/01/24 0400 Scheduled MAXIMILIAN FRANKLINRA Quyen 08/02/24 0400 Scheduled GERMAN FRANKLIN Ordered GERMAN FRANKLIN 07/28/24 0001 Ambulate patient 4 times daily Ordered GERMAN FRANKLIN 07/28/24 0001 Do Not Give Nicotine Replacement Until discontinued Ordered GERMAN FRANKLIN 07/28/24 0001 NPO diet NPO except: Sips with meds Diet effective now Ordered GERMAN FRANKLIN 07/28/24 0001 Mobility Orders Until discontinued Ordered GERMAN FRANKLIN 07/28/24 0001 Out of Bed Until discontinued Ordered SEVERIANO GERMAN M 07/28/24 0001 Notify Provider Until discontinued Ordered FRANKLINLISBETHGERMAN M 07/28/24 0001 Vital Signs (Every 4 hours) Every 4 hours Ordered FRANKLINGERMAN JUAN M 07/28/24 0001 Check pulse oximetry (Every 4 hours) Every 4 hours Ordered FRANKLINGERMAN JUAN M 07/28/24 0001 Intake and Output (Every 4 hours) Every 4 hours Ordered GERMAN FRANKLIN M 07/28/24 0001 Insert peripheral IV Once Placed in And Linked Group Ordered FRANKLIN, GERMAN M 07/28/24 0001 Saline lock IV Once Placed in And Linked Group Ordered FRANKLIN, GERMAN M 07/28/24 0001 Do NOT transfer patient to [facility] without chief resident or attending apporval Until discontinued Ordered GERMAN FRANKLIN M 07/28/24 0001 Initiate observation status Once Ordered FRANKLIN, GERMAN M 07/28/24 0001 Full code Continuous Ordered GERMAN FRANKLIN 07/27/242237 Consult to Urology Once Specialty: Urology [...] PROCEDURE ONCE Final result SHANTELL CHUA 07/27/24 1844 CBC w/diff STAT Final result SHANTELL CHUA 07/27/24 1844 CMP STAT Final result SHANTELL CHUA 07/27/24 [...] Chua MD Clinical Impressions as of 07/28/24 001 Hydronephrosis, unspecified hydronephrosis type Social Determinates of [...] None Disposition Admit Admitting/Attending Physician: ADAL FRANKLIN [[id number]] Provider Care Team: URO ONCOLOGY [[id number]] Are [...] Procedure Laterality Date COLONOSCOPY PORTACATH PLACEMENT Right [place] CYSTO/URETERO/PYELOSCOPY, DX Right 12/20/2022 Procedure: DIAGNOSTIC URETEROSCOPY; Surgeon: Sunday Lopez MD; Location: [facility]; Service: Urology THYROID SURGERY N/A Thyroid Surgery from [facility] UPPER GASTROINTESTINAL ENDOSCOPY [3] Family [...] Description 08/20/2024 9:30 AM EDT Office Visit [facility] [address] [place] [address] Sara Tesfaye, SHUTTLER [address] [facility] Shantel Cooper [facility] [address] [place] [phone] 08/27/2024 1:00 PM EDT Office Visit [facility] [address] [place] [address] Bobby Vazquez MD [address] [facility] Shantel Cooper [address] [address] 08/27/2024 1:00 PM EDT Clinical Support [facility] [address] [place] [address] 08/27/2024 2:30 PM EDT Appointment [facility] [address] [place] [address] 09/17/2024 2:30 PM EDT Appointment [facility] 2 [address] [place] [address] 10/08/2024 2:30 PM EDT Appointment [facility] 2 [address] [place] [address] 10/19/2024 11:30 AM EDT Office Visit [facility] [address] [place] [address] Kym Romero, SHUTTLER [address] [facility] Shantel Cooper [address] [phone] 11/24/2024 11:00 AM EDT Office Visit [facility] [address] [place] [address] Adal Franklin MD [address] [place] [address] 12/15/2024 1:00 PM EDT Office Visit [facility] [address] [place] [address] Efren Fallon MD [address] [place] [address] 12/29/2024 9:30 AM EDT Clinical Support [facility] [address] [facility], [address]nd [place] [address] 12/29/2024 10:00 AM EDT Office Visit [facility] [address] [facility], [address]nd [place] [address] Carlito Mccartney MD [facility] [address] [place] [address] 03/23/2025 10:40 AM EST Office Visit [facility] [address] [facility] [place] [address] Arabella Romero, SHUTTLER [address] [place] [address] documented as of this encounter Procedures Procedure Name Priority Date/Time Associated Diagnosis Comments [place] LESS THAN 1 HOUR (NON-REPORTABLE) Routine 07/28/2024 1:42 PM EDT URINE CULTURE Routine 07/28/2024 1:32 PM EDT Hydronephrosis with renal and ureteral calculus obstruction [place] CYSTOSCOPY,INSERT URETERAL STENT 07/28/2024 12:39 PM EDT [...] at day 1 07/29/2024 11:09 AM EDT [facility] Urine Right kidney structure / Unknown 07/28/2024 1:32 PM EDT 07/28/2024 2:03 PM EDT Comment:Pre-op diagnosis: Hydronephrosis with renal and ureteral calculus obstruction [N13.2] us Gloria Velasquez MD LAB MICROBIOLOGY - GENERAL O RDERABLES Final Result [facility] [address] [place] [address] * CT Abdomen Pelvis w IV Contrast [...] MD LAB URINE ORDERABLES Fi nal Result [facility] [address] [place] [address] * Urine Heaton Panel (07/27/2024 7:51 PM EDT) Extra Reflex urine culture not indicated 07/27/2024 10:01 PM EDT [facility] Urine Urine specimen obtained by clean catch procedure / Unknown Non-blood Collection / Unknown 07/27/2024 7:51 PM EDT 07/27/2024 8:04 PM EDT us Jin Clark MD LAB URINE ORDERABLES Fi nal Result Performing Organization Address City/[facility]/ZIP Co de Phone Number [facility] [address] [place] [address] * (ABNORMAL) Urinalysis with reflex microscopic (Culture NOT Included) (07/27/2024 7:51 PM EDT) Color, Urine Dark Yellow LAB URINALYSIS - AUTOMATED METHOD 07/27/2024 9:44 PM EDT [facility] Clarity, Urine Clear LAB URINALYSIS - AUTOMATED METHOD 07/27/2024 9:44 PM EDT [facility] Spec Sawyer, Urine 1.008 1.005 - 1.030 LAB URINALYSIS - AUTOMATED METHOD 07/27/2024 9:44 PM EDT [facility] pH, Urine 7.0 5.0 - 8.0 LAB URINALYSIS - AUTOMATED METHOD 07/27/2024 9:44 PM EDT [facility] Protein, Urine 100(A) Negative mg/dL LAB URINALYSIS - AUTOMATED METHOD 07/27/2024 9:44 PM EDT [facility] Glucose, Urine Negative Negative mg/dL LAB URINALYSIS - AUTOMATED METHOD 07/27/2024 9:44 PM EDT [facility] Ketones, Urine Negative Negative mg/dL LAB URINALYSIS - AUTOMATED METHOD 07/27/2024 9:44 PM EDT [facility] Blood, Urine Large(A) Negative LAB URINALYSIS - AUTOMATED METHOD 07/27/2024 9:44 PM EDT [facility] Bilirubin, Urine Negative Negative LAB URINALYSIS - AUTOMATED METHOD 07/27/2024 9:44 PM EDT [facility] Urobilinogen, Urine 1.0 0.2 to 1.0 mg/dL LAB URINALYSIS - AUTOMATED METHOD 07/27/2024 9:44 PM EDT [facility] Leukocytes, Urine Small(A) Negative LAB URINALYSIS - AUTOMATED METHOD 07/27/2024 9:44 PM EDT [facility] Nitrite, Urine Positive(A) Negative LAB URINALYSIS - AUTOMATED METHOD 07/27/2024 9:44 PM EDT [facility] RBC, Urine 3 0 to 3 /HPF LAB URINALYSIS - AUTOMATED METHOD 07/27/2024 9:44 PM EDT [facility] Comment: Confirmed This result was previously suppressed from the chart. WBC, Urine 0 - 5 0 to 5 /HPF LAB URINALYSIS - AUTOMATED METHOD 07/27/2024 9:44 PM EDT [facility] Comment:This result was prev iously suppressed from the chart. Squamous Epithelial Cells 0 - 2 0 to 5 /HPF LAB URINALYSIS - AUTOMATED METHOD 07/27/2024 9:44 PM EDT [facility] Comment:This result was prev iously suppressed from the chart. Hyaline Casts 0 - 2 0 to 5 /LPF LAB URINALYSIS - AUTOMATED METHOD 07/27/2024 9:44 PM EDT [facility] Comment:This result was prev iously suppressed from the chart. Bacteria, Urine Present Negative LAB URINALYSIS - AUTOMATED METHOD 07/27/2024 9:44 PM EDT [facility] Comment:This result was prev iously suppressed from the chart. Urine Urine specimen obtained by clean catch procedure / Unknown Non-blood Collection / Unknown 07/27/2024 7:51 PM EDT 07/27/2024 7:54 PM EDT Narrative [facility] - 07/27/2024 9:44 PM EDT Performed by manual method us Jin Clark MD LAB URINE ORDERABLES Fi nal Result [facility] [address] [place] [address] * Procalcitonin (07/27/2024 6:50 PM EDT) Procalcitonin, Plasma 0.07 <0.09 ng/mL 07/27/2024 7:45 PM EDT [facility] Blood Venous blood specimen / Unknown Venipuncture / Unknown 07/27/2024 6:50 PM EDT 07/27/2024 7:04 PM EDT Narrative [facility] - 07/27/2024 7:45 PM EDT Procalcitonin [...] predict 28 day mortality risk. Please consult [email or web address]-xlv-[email or web address] for more information. Test performed at [facility]. Jin Clark MD LAB BLOOD ORDERABLES Fi nal Result Performing Organization Address City/[facility]/ZIP Co de Phone Number [facility] [address] [place] [address] * Lactic acid, venous (07/27/2024 6:50 PM EDT) Lactate, Venous, Whole Blood 1.9 0.5 - 2.2 mmol/L LAB HEMATOLOGY METHOD 07/27/2024 7:14 PM EDT [facility] Blood Venous blood specimen / Unknown Venipuncture / Unknown 07/27/2024 6:50 PM EDT 07/27/2024 7:09 PM EDT Jin Clark MD LAB BLOOD ORDERABLES Fi nal Result [facility] [address] [place] [address] * Lipase (07/27/2024 6:50 PM EDT) Lipase, Plasma 25 19 - 63 U/L 07/27/2024 7:45 PM EDT [facility] Blood Venous blood specimen / Unknown Venipuncture / Unknown 07/27/2024 6:50 PM EDT 07/27/2024 7:04 PM EDT us Jin Clark MD LAB BLOOD ORDERABLES Fi nal Result [facility] [address] [place] [address] * (ABNORMAL) CMP (07/27/2024 6:50 PM EDT) Glucose, Plasma 100(H) 74 - 99 mg/dL 07/27/2024 7:45 PM EDT [facility] BUN, Plasma 11 8 - 23 mg/dL 07/27/2024 7:45 PM EDT [facility] Creatinine, Plasma 1.16 0.70 - 1.20 mg/dL 07/27/2024 7:45 PM EDT [facility] BUN/Creatinine Ratio 9 07/27/2024 7:45 PM EDT [facility] Sodium, Plasma 131(L) 136 - 145 mmol/L 07/27/2024 7:45 PM EDT [facility] Potassium, Plasma 4.1 3.6 - 4.9 mmol/L 07/27/2024 7:45 PM EDT [facility] Chloride, Plasma 95(L) 97 - 107 mmol/L 07/27/2024 7:45 PM EDT [facility] CO2, Plasma 23 22 - 29 mmol/L 07/27/2024 7:45 PM EDT [facility] Anion Gap 13 6 - 16 mmol/L 07/27/2024 7:45 PM EDT [facility] Total Calcium, Plasma 9.2 8.9 - 10.2 mg/dL 07/27/2024 7:45 PM EDT [facility] Total Protein 7.0 6.3 - 7.9 g/dL 07/27/2024 7:45 PM EDT [facility] Albumin, Plasma 3.8 3.5 - 5.2 g/dL 07/27/2024 7:45 PM EDT [facility] AST, Plasma 48 10 - 50 U/L 07/27/2024 7:45 PM EDT [facility] ALT, Plasma 37 10 - 50 U/L 07/27/2024 7:45 PM EDT [facility] Alkaline Phosphatase, Plasma 109 40 - 115 U/L 07/27/2024 7:45 PM EDT [facility] Total Bilirubin, Plasma 0.2 0.2 - 1.1 mg/dL 07/27/2024 7:45 PM EDT [facility] eGFRcr 72.1 mL/min/1.7 3m*2 07/27/2024 7:45 PM EDT [facility] Comment:Reported eGFRcr in m L/min/1.73m2 is based the CKD-EPI 2020 equation that does not use a race coefficient. Blood Venous blood specimen / Unknown Venipuncture / Unknown 07/27/2024 6:50 PM EDT 07/27/2024 7:04 PM EDT us Jin Clark MD LAB BLOOD ORDERABLES Fi nal Result [facility] [address] [place] [address] * (ABNORMAL) CBC w/diff (07/27/2024 6:50 PM EDT) WBC Count 9.93 3.70 - 10.30 10*3/uL LAB HEMATOLOGY METHOD 07/27/2024 7:46 PM EDT [facility] RBC Count 4.06(L) 4.60 - 6.10 10*6/uL LAB HEMATOLOGY METHOD 07/27/2024 7:46 PM EDT [facility] HGB 10.5(L) 13.7 - 17.5 g/dL LAB HEMATOLOGY METHOD 07/27/2024 7:46 PM EDT [facility] HCT 32.2(L) 40.0 - 51.0 % LAB HEMATOLOGY METHOD 07/27/2024 7:46 PM EDT [facility] Platelet Count 249 155 - 369 10*3/uL LAB HEMATOLOGY METHOD 07/27/2024 7:46 PM EDT [facility] MCV 79 79 - 98 fL LAB HEMATOLOGY METHOD 07/27/2024 7:46 PM EDT [facility] MCH 25.9(L) 26.0 - 32.0 pg LAB HEMATOLOGY METHOD 07/27/2024 7:46 PM EDT [facility] MCHC 32.6 30.7 - 35.5 g/dL LAB HEMATOLOGY METHOD 07/27/2024 7:46 PM EDT [facility] RDW 15.7(H) 11.5 - 14.5 % LAB HEMATOLOGY METHOD 07/27/2024 7:46 PM EDT [facility] MPV 9.8 8.8 - 12.5 fL LAB HEMATOLOGY METHOD 07/27/2024 7:46 PM EDT [facility] nRBC 0.0 <=0.0 per 100 WBCs LAB HEMATOLOGY METHOD 07/27/2024 7:46 PM EDT [facility] Differential Type Automated LAB HEMATOLOGY METHOD 07/27/2024 7:46 PM EDT [facility] Neutrophils % 77 % LAB HEMATOLOGY METHOD 07/27/2024 7:46 PM EDT [facility] Lymphocytes % 11 % LAB HEMATOLOGY METHOD 07/27/2024 7:46 PM EDT [facility] Monocytes % 10 % LAB HEMATOLOGY METHOD 07/27/2024 7:46 PM EDT [facility] Eosinophils % 1 % LAB HEMATOLOGY METHOD 07/27/2024 7:46 PM EDT [facility] Basophils % 0 % LAB HEMATOLOGY METHOD 07/27/2024 7:46 PM EDT [facility] Immature Granulocytes % 1 % LAB HEMATOLOGY METHOD 07/27/2024 7:46 PM EDT [facility] Neutrophils Absolute 7.63(H) 1.60 - 6.10 10*3/uL LAB HEMATOLOGY METHOD 07/27/2024 7:46 PM EDT [facility] Lymphocytes Absolute 1.11(L) 1.20 - 3.90 10*3/uL LAB HEMATOLOGY METHOD 07/27/2024 7:46 PM EDT [facility] Monocytes Absolute 1.02(H) 0.30 - 0.90 10*3/uL LAB HEMATOLOGY METHOD 07/27/2024 7:46 PM EDT [facility] Eosinophils Absolute 0.06 0.00 - 0.50 10*3/uL LAB HEMATOLOGY METHOD 07/27/2024 7:46 PM EDT [facility] Basophils Absolute 0.03 0.00 - 0.10 10*3/uL LAB HEMATOLOGY METHOD 07/27/2024 7:46 PM EDT [facility] Immature Granulocytes Absolute 0.08(H) 0.00 - 0.06 10*3/uL LAB HEMATOLOGY METHOD 07/27/2024 7:46 PM EDT [facility] Blood Venous blood specimen / Unknown Venipuncture / Unknown 07/27/2024 6:50 PM EDT 07/27/2024 7:04 PM EDT Narrative [facility] - 07/27/2024 7:46 PM EDT Therapeutic decision making should be based on absolute values, rather than percentages. Jin Clark MD LAB BLOOD ORDERABLES Fi nal Result [facility] [address] [place] [address] documented in this encounter Visit Diagnoses Diagnosis Hydronephrosis- Primary Hydronephrosis with renal and ureteral calculus obstruction Hydronephrosis, unspecified hydronephrosis type Hydronephrosis with renal and ureteral calculus obstruction documented in this encounter Admitting Diagnoses Diagnosis [...] Given 07/27/2024 9:07 PM EDT 100 mL iohexol (OMNIPaque) 300 MG/ML injection As needed, Starting on Fri07/28/24 at 1200, Until Fri07/28/24 at 1348, Routine, Intraprocedure Given 07/28/2024 1:22 PM EDT 6 mL lactated Ringer's bolus 1,614 mL 1,614 [...] Mcmahon)0800 (Given - Provider: Marilee Quiroga, RN)1037 (MAY Hold - Provider: Automatic Transfer Provider - Reason: Patient in procedure)1744 (MAY Unhold - Provider: Automatic Discharge Provider) enoxaparin (Lovenox) syringe 40 mg 40 mg, Subcutaneous, Every 24 hours scheduled, First dose on Fri07/28/24 at 0900, Until Discontinued, Routine 0800 (Not Given - Provider: Marilee Quiroga, GIN - Reason: Patient/family refused)1037 (MAY Hold - Provider: Automatic Transfer Provider - Reason: Patient in procedure)1744 (MAY Unhold - Provider: Automatic Discharge Provider) HYDROmorphone (Dilaudid) injection 0.5 mg (COMPLETED) 0.5 mg, Intravenous, Once, 1 dose, On Fri07/27/24 at 2125, Routine 2124 (Given - Provider: Indiana Rascon, GIN) iohexol (OMNIPaque) 300 MG/ML injection 100 mL [...] Routine 0800 (Given - Provid er: Marilee Quiroga, GIN)1037 ([facility] Hold - Provider: Automatic Transfer Provider - Reason: Patient in procedure)1744 ([facility] Unhold - Provider: Automatic Discharge Provider) piperacillin-tazobactam [...] parameters not met - Comment: fluids infusing)1037 ([facility] Hold - Provider: Automatic Transfer Provider - Reason: Patient in procedure)1205 (Dose Auto Held - Provider: Automatic Transfer Provider)1744 ([facility] Unhold - Provider: Automatic Discharge Provider) [...] 0137 (Given - Provid er: Re Mcmahon)1037 ([facility] Hold - Provider: Automatic Transfer Provider - Reason: Patient in procedure)1744 ([facility] Unhold - Provider: Automatic Discharge Provider) Continuous Medication Order 07/26/2024 07/27/2024 07/28/2024 lactated Ringer's infusion 75 mL/hr, Intravenous, Continuous, Starting on Fri07/28/24 at 0005, Until Fri07/28/24 at 1744, Routine 0142 (New Bag - Prov ider: Re Mcmahon)0746 (Paused - Provider: Marilee Quiroga RN)0942 (Restarted - Provider: Marilee Quiroga RN)1253 (Paused - Provider: Miriam Mayfield CRNA - Comment: Switch to gravity)1254 (New Bag - Provider: Miriam Mayfield CRNA) PRN Medication Order 07/26/2024 07/27/2024 07/28/2024 acetaminophen (Tylenol) tablet 1,000 mg 1,000 mg, Oral, Once as needed, 1 dose, Starting on Fri07/28/24 at 1338, Until Fri07/28/24 at 174, Routine, Recovery (Phase I only), pain score of >1 out of 10 droperidol (Inapsine) injection 0.625 mg 0.625 mg, Intravenous, Once as needed, 1 dose, Starting on Fri07/28/24 at 1338, Until Fri07/28/24 at 174, Routine, Recovery (Phase I only), nausea, vomiting [...] (Given - Provid er: Marilee Quiroga RN)1037 ([facility] Hold - Provider: Automatic Transfer Provider - Reason: Patient in procedure)1744 ([facility] Unhold - Provider: Automatic Discharge Provider) iohexol (OMNIPaque) 300 MG/ML injection (CANCELED) As needed, Starting on Fri07/28/24 at 1200, Until Fri07/28/24 at 1348, Routine, Intraprocedure 1322 (Given - Provid er: Gloria Velasquez MD) ondansetron (Zofran) injection 4 mg 4 mg, Intravenous, Every 6 hours PRN, Starting on Fri07/28/24 at 0001, Until Fri07/28/24 at 1744, Routine, nausea, vomiting 1037 ([facility] Hold - Pro vider: Automatic Transfer Provider - Reason: Patient in procedure)1744 ([facility] Unhold - Provider: Automatic Discharge Provider) ondansetron (Zofran) injection 4 mg 4 mg, Intravenous, Once as needed, 1 dose, Starting on Fri07/28/24 at 1338, Until Fri07/28/24 at 1744, Routine, Recovery (Phase I only), nausea, vomiting oxyCODONE (Roxicodone) immediate release tablet 10 mg 10 mg, Oral, Every 6 hours PRN, Starting on Fri07/28/24 at 0656, Until Fri07/28/24 at 1744, Routine, severe pain 1037 ([facility] Hold - Pro vider: Automatic Transfer Provider - Reason: Patient in procedure)1744 ([facility] Unhold - Provider: Automatic Discharge Provider) [...] at 1744, Routine, pain, discomfort, irritation 1037 ([facility] HOSPITAL Hold - Pro vider: Automatic Transfer Provider - Reason: Patient in procedure)1744 ([facility] Unhold - Provider: Automatic Discharge Provider) sodium chloride 0.9 % flush 10 mL(Linked Group 1) 10 mL, Intravenous, As needed, Starting on Fri07/27/24 at 2359, Until Fri07/28/24 at 1744, Routine, line care 1037 ([facility] Hold - Pro vider: Automatic Transfer Provider - Reason: Patient in procedure)1744 ([facility] Unhold - Provider: Automatic Discharge Provider) [...] documented as of this encounter Care Teams Supervisor Major Appliance Assembly Relationship Specialty Start Date End Date Efren Roy DO [address] [place], [place] [phone] PCP - General 03/04/23 Efren Roy DO [address] [place] [address] Pain Medicine 01/03/23 Rosa Maria Beltran APRN [address] [place] [address] [address] [place] [phone] Nurse Practitioner Family Medicine 07/21/23 Bobby Vazquez MD 800 [facility] [address] [place] [phone] Consulting Physician Medical Oncology 09/17/23 Cally Henderson PA [address] [facility] [address] [place] [phone] Physician Volunteer Manager Urology 09/17/23 documented as of this encounter
--- OUTSIDE RECORDS SUMMARY | 2024-07-28 12:54 | XMS_ITS | Encounter Summary ---
Author Organization Healthcare Address [address] [place] [address] Care Team Providers Care Auto Mechanic Name Role Phone Efren Roy DO Unavailable [phone] Efren Roy DO Primary Care Provider [phone] Rosa Maria Beltran APRN Unavailable [phone] Bobby Vazquez MD Unavailable Cally Henderson Unavailable [phone] Reason for Visit * Auth/Cert (Routine) Specialty Diagnoses / Procedures Referred By Ric t Referred To Contact Diagnoses Hydronephrosis Hydronephrosis with renal and ureteral calculus obstruction Hydronephrosis, unspecified hydronephrosis type Adal Franklin MD [address] [facility] [address] [place] [address] Phone: tel: fax: [facility] [address] [place] [address] Phone: tel: Referral ID Status Reason Start Date Expiration Date Visits Re quested Visits Authorized [id number] 1 1 Encounter Details Date Type Department Care Team (Late st Contact Info) Description 07/28/2024 12:54 PM EDT Anesthesia Event [facility] [address] [place] [address] Juvenal Royal MD [address] [place] [address] Fariha Kwon PA [address] [place] [address] Anesthesia Record Procedure Summary Procedure Name Responsible Anesthesiologist Anesthesia Start Time Anesthesia Stop Time CYSTOSCOPY, WITH URETERAL STENT INSERTION (Right: Bladder) Juvenal Royal MD 07/28/24 1254 07/28/24 1351 Events Date Time Event Comment 07/28/2024 1218 1254 In Room 1254 An Start The patient was reevaluated immediately before sedation and remains eligible for anesthesia plan. 1254 An Start Data 1301 An Induction The patient was reevaluated immediately before moderate or deep sedation use and before anesthesia induction. 1302 An Intubation 1304 Anesthesia Ready 1322 Proc Start 1334 Proc Fin 1337 An Extubation 1338 an stop data 1340 Out of Room 1351 Handoff to Receiving I compl eted my handoff to the receiving clinician during which we: 1. Identified the patient 2. Identified the responsible provider 3. Reviewed the pertinent medical history 4. Discussed the surgical course 5. Reviewed intra-op anesthesia management and issues during anesthesia 6. Set expectations for post-procedure period 7. Allowed opportunity for questions and acknowledgement of understanding. 1351 An Stop Meds Name Total fentaNYL (Sublimaze) injection 50 mcg/mL 75 mcg lidocaine PF (Xylocaine-MPF) 2% 100 mg propofol (Diprivan) injection 10 mg/mL 1 50 mg rocuronium (ZeMuron) injection 10 mg/mL 50 mg dexamethasone (Decadron) injection 4 mg/ mL 4 mg phenylephrine (Rod-Synephrine) prefilled syringe 1 mg/10 mL 100 mcg ondansetron (Zofran) injection 2 mg/mL 4 mg sugammadex (Bridion) injection 100 mg/mL 400 mg ampicillin-sulbactam (Unasyn) vial 3 g 3 g lactated Ringer's infusion 0 mL * Agents Name O2 Sevoflurane * Blood No blood administrations on file. Lines, Drains, and Airways Type Details Placement Removal Single Lumen Implantable Port Yes; Right; Chest 06/11/24 0928 by Peripheral IV Catheter Size: 20 G; Orientation: Distal, Posterior, Right; Location: Forearm; Technique: Anatomical landmarks; Patient Tolerance: Tolerated well; Removal Date: 07/28/24; Removal Time: 1458; Removal Reason: Discharge 07/27/24 1855 by 07/28/24 1458 by Odessa De La Torre RN ETT Placement Date: 07/28/24; Placement Time: 1302 (created via procedure documentation); Mask Ventilation: 1; Technique: Direct laryngoscopy; Type: ETT - single; Single Lumen Tube Size: 7 mm; Cuffed: Yes; Laryngoscope: Ramos; Blade Size: 2; Location: Oral; Grade View: Grade I; Insertion Attempts: 1; Placement Verification: Auscultation, Capnometry; Airway Comments: Bilateral Breath Sounds, (+) ETCO2, Atraumatic, No change to dentition. ; Placed by: RUKHSANA; Removal Date: 07/28/24; Removal Time: 1338 07/28/24 1302 by Miriam Mayfield CRNA 07/28/24 1338 by Miriam Mayfield CRNA documented in this encounter Social History Tobacco [...] any time in the past 12 [address] [place], were you homeless or living in a [...] drink first t tianna in the morning (EYE-SOCKET WELDER HELPER) to steady your nerves or to get rid of a hangover? 0 02/27/2023 CAGE Questionnaire Score 0 023 Utilities Answer Date Recorded In the past 12 months has th [place] Dentist electric, gas, oil, or water company threatened [...] as of this encounter Functional Status * Calculated C-SSRS [...] Burden RN documented as of this encounter Miscellaneous Notes * Anesthesia Postprocedure Evaluation - Miriam Mayfield CRNA - 07/28/2024 1:51 PM EDT Patient: Adrián Goode Anesthesia Type: general Vitals Value Taken Time BP 102/85 07/28/24 13:50 Temp 36.7 ??C (98.1 ??F) 07/28/24 13:44 Pulse 89 07/28/24 13:50 Resp 13 07/28/24 13:50 SpO2 99 % 07/28/24 13:50 Vitals shown include unfiled device data. Anesthesia Post Evaluation Patient location during evaluation: PACU Patient participation: complete - patient participated Level of consciousness: awake Pain management: adequate (pain score 0-3) Airway patency: natural airway Cardiovascular status: acceptable Respiratory status: acceptable, spontaneous ventilation, unassisted, nonlabored ventilation and nasal cannula Hydration status: acceptable No notable events documented. * Anesthesia Procedure Notes - Miriam Mayfield CRNA - 07/28/2024 1:14 PM EDT Associated Order(s): Airway Airway Date/Time: 07/28/2024 1:02 PM Reason: elective Airway not difficult General Information and Staff Patient location during procedure: OR EVENT SPECIALIST: Miriam Mayfield CRNA Performed: EVENT SPECIALIST Patient Condition Indications for airway management: anesthesia Patient position: sniffing Final Airway Details Final airway type: endotracheal airway Successful airway: ETT Cuffed: yes Successful intubation technique: direct laryngoscopy Adjuncts used in placement: intubating stylet Endotracheal tube insertion site: oral Blade: Ramos Blade size: #2 ETT size (mm): 7.0 Cormack-Lehane Classification: grade I - full view of glottis Placement verified by: chest auscultation and capnometry Measured from: teeth ETT to teeth (cm): 21 Additional Comments Bilateral Breath Sounds, (+) ETCO2, Atraumatic, No change to dentition. * Anesthesia Preprocedure Evaluation - Juvenal Royal MD - 07/28/2024 10:44 AM EDT Images from the original note were not included. Patient: Adrián Goode Procedure Information Date/Time: 07/28/24 1200 Procedure: CYSTOSCOPY, WITH URETERAL STENT INSERTION (Right) Location: [facility] OR Surgeons: Adal Franklin MD HPI Adrián Goode is a 59 y.o. 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 currently on systemic therapy that presents with Hydronephrosis Date Difficult Airway Blade Size ETT Size C-L Class Final Type Intubation Method 02/20/24 No 4 7.5 grade I - full view of glottis endotracheal airway video laryngoscopy 11/07/23 No LMA 08/14/23 No 2 7.0 grade I - full view of glottis endotracheal airway direct laryngoscopy 05/02/23 No 3 7.5 grade I - full view of glottis endotracheal airway video laryngoscopy NPO STATUS: since MN Activity Level/METS: <4 Relevant Problems Cardio (+) Essential (primary) hypertension (+) Occlusion and stenosis of unspecified carotid artery Endo (+) Hypothyroidism, unspecified (+) Postprocedural hypothyroidism (+) Thyroid malignant neoplasm (CMS/HCC) GI (+) Gastro-esophageal reflux disease without esophagitis (+) Weight loss /Renal (+) Hydronephrosis (+) Hydronephrosis with ureteral stricture, not elsewhere classified (+) Hypertensive chronic kidney disease with stage 1 through stage 4 chronic kidney disease, or unspecified chronic kidney disease Neuro/Psych (+) Status post administration of cardiotoxic chemotherapy Pulmonary (+) Non-seasonal allergic rhinitis Genitourinary (+) Malignant neoplasm of urinary bladder (CMS/HCC) (+) Malignant tumor of right ureter (CMS/HCC) SOCIAL HX Tobacco Use History[1] Social History Substance and Sexual Activity Alcohol Use Not Currently Comment: Alcoholic Drinks/day: History of alcohol use Social History Substance and Sexual Activity Drug Use Not Currently Comment: Drug use: History of drug use SURGICAL HX Surgical History[2] ALLERGIES Allergies[3] MEDICATIONS Scheduled acetaminophen, 650 mg, Oral, q6h ERASTO ampicillin-sulbactam, 3 g, Intravenous, q6h docusate sodium, 100 mg, Oral, BID enoxaparin, 40 mg, Subcutaneous, q24h ERASTO morphine CR, 15 mg, Oral, BID Insert peripheral IV, , , Once AND Saline lock IV, , , Once AND sodium chloride, 10 mL, Intravenous, q12h AND sodium chloride, 10 mL, Intravenous, PRN tamsulosin, 0.4 mg, Oral, Nightly LABS Labs in last 18 hours CBC WBC 9.93 Hb 10.5 (L) Plt 249 Hct 32.2 (L) ANC 7.63 (H) INR ??, PTT ??, Anti-Xa ?? BMP Na 131 (L) Cl 95 (L) BUN 11 Glu 100 (H) K 4.1 Co2 23 Cr 1.16 Ca 9.2 iCa ?? Mg ??, Phos ?? Lactate ?? LFT AST 48 AlkPhos 109 T Prot 7.0 ALK 37 Bili 0.2 Alb ?? D.Bili ?? EKG, ECHO, Cath, Imaging, PFTs EKG ECHO No echocardiogram results found for the past [address] chest/abd/pelvis 07/14 IMPRESSION: Chest: Interval increase in size of [...] as described above, concerning for metastatic lymphadenopathy. PFTs Pulmonary Functions Testing Results: No results found for: ALF8AOH , JPJ2XSIP , LHC3WRH , FVCPRED Body mass index is 25.54 kg/m??. Vitals: 07/28/24 0621 BP: 104/79 Pulse: 108 Resp: 17 Temp: 36.9 ??C (98.5 ??F) SpO2: 100% ROS Anesthesia: Date of last anesthetic: 02/2024 history of previous anesthesia and history of anesthetic complications (Aspiration event with colonoscopy many years ago). Does not have obstructive sleep apnea and PONV. Cardiovascular: hyperlipidemia. Does not have CAD, CHF, dysrhythmias, pacemaker or past OR. hypertension: Respiratory: no asthma: no COPD: Respiratory ROS additional comments: Former smoker HEENT: missing teeth.Does not have loose teeth. Neurological: no seizures: Did not have a cerebrovascular accident.Does not have TIA. Musculoskeletal: Does not have cervical spine limited mobility. [facility] additional comments: cervical DDD with limited mobility and chronic pain Gastrointestinal: GERD (PPI): well controlled.Does not have cirrhosis or hepatitis. Genitourinary: chronic renal disease: CRI Hematological/Lymphatic: Does not have anemia. History of no DVT. History of no pulmonary embolism. Endocrine/Metabolic: does not have diabetes mellitus. thyroid disorder (thyroid ca s/p resection). Physical Exam Airway Mallampati: I Mouth opening: normal TM distance: >3 FB Cardiovascular Rhythm: regular Rate: normal Dental (+) edentulous Pulmonary Breath sounds clear to auscultation Neurological Oriented: normal to time, normal to place and normal to person and oriented to person, place and time Skin Skin: warm and dry Musculoskeletal - normal exam Extremities -normal exam Anesthesia Plan ASA 3 Plan was reviewed with: EVENT SPECIALIST and attending Anesthesia technique(s) discussed with the patient/family: general Anesthesia plan agreed upon was: general Anesthetic plan and risks discussed with patient. Use of blood products discussed with patient who consented to blood products. Additional Equipment Requests [1] Social History Tobacco Use Smoking Status Never Passive exposure: Yes Smokeless Tobacco Current Types: Snuff Tobacco Comments 10 x daily [2] Past Surgical History: Procedure Laterality Date COLONOSCOPY PORTACATH PLACEMENT Right RI CYSTO/URETERO/PYELOSCOPY, DX Right 12/20/2022 Procedure: DIAGNOSTIC URETEROSCOPY; Surgeon: Sunday Lopez MD; Location: [facility]; Service: Urology THYROID SURGERY N/A Thyroid Surgery from [facility] UPPER GASTROINTESTINAL ENDOSCOPY [3] Allergies Allergen Reactions Enfortumab Vedotin Other - please document in the comment field Back pain documented in this encounter Plan of Treatment Upcoming Encounters Date Type Department Care Team (Late st Contact Info) Description 08/20/2024 9:30 AM EDT Office Visit [facility] [address] [place] [id number] Sara Tesfaye APRN [address] [facility] [address] [address] 08/27/2024 1:00 PM EDT Office Visit [facility] [address] [place] [phone] Bobby Vazquez MD [address] [facility] [address] [facility] [address] [place] [address] 08/27/2024 1:00 PM EDT Clinical Support [facility] [address] [place] [phone] 08/27/2024 2:30 PM EDT Appointment [facility] [address] [place] [address] 09/17/2024 2:30 PM EDT Appointment [facility] [address] [place] [address] 10/08/2024 2:30 PM EDT Appointment [facility] [address] [place] [address] 10/19/2024 11:30 AM EDT Office Visit [facility] Clinic [address] [place] [phone] Kym Romero, COUNSELING CENTER DIRECTOR [address] [facility] [address] [place] [phone] 11/24/2024 11:00 AM EDT Office Visit [facility] Clinic [address] [place] [phone] Adal Franklin MD [address] [facility] [address] [place] [phone] 12/15/2024 1:00 PM EDT Office Visit [facility] [address] [facility] [place] [address] Efren Fallon MD [address] [facility] [address] [place] [address] 12/29/2024 9:30 AM EDT Clinical Support [facility] [address] [facility] [place] [address] 12/29/2024 10:00 AM EDT Office Visit [facility] [address] [facility] [place] [address] Carlito Mccartney MD [address] [place] [address] 03/23/2025 10:40 AM EST Office Visit [facility] [address] [facility] [place] [address] Arabella Romero, COUNSELING CENTER DIRECTOR [address] [place] [address] documented as of this encounter Procedures Procedure Name Priority Date/Time Associated Diagnosis Comments PB ANESTHESIA PLACEHOLDER Routine 07/28/2024 1:02 PM EDT RI AN ELECTIVE ENDOTRACHEAL AIRWAY Routine 07/28/2024 1:02 PM EDT documented in this encounter Results * RI AN ELECTIVE ENDOTRACHEAL AIRWAY, PB ANESTHESIA PLACEHOLDER (07/28/2024 1:02 PM EDT) Narrative Miriam Mayfield CRNA - 07/28/2024 1:02 PM EDT Miriam Mayfield CRNA 07/28/2024 1:14 PM Airway Date/Time: 07/28/2024 1:02 PM Reason: elective Airway not difficult General Information and Staff Patient location during procedure: OR EVENT SPECIALIST: Miriam Mayfield CRNA Performed: EVENT SPECIALIST Patient Condition Indications for airway management: anesthesia Patient position: sniffing Final Airway Details Final airway type: endotracheal airway Successful airway: ETT Cuffed: yes Successful intubation technique: direct laryngoscopy Adjuncts used in placement: intubating stylet Endotracheal tube insertion site: oral Blade: Ramos Blade size: #2 ETT size (mm): 7.0 Cormack-Lehane Classification: grade I - full view of glottis Placement verified by: chest auscultation and capnometry Measured from: teeth ETT to teeth (cm): 21 Additional Comments Bilateral Breath Sounds, (+) ETCO2, Atraumatic, No change to dentition. us Juvenal Royal MD ANESTHESIA ORDERABLES Final Res ult documented in this encounter Visit Diagnoses Not on filedocumented in this encounter Administered Medications Inactive Administered Medications - up to 3 most recent administrations Medication Order MAR Action Action Date Dose Rate Site ampicillin-sulbactam (Unasyn) injection Intravenous, As needed, Starting on Fri07/28/24 at 1309, Until Fri07/28/24 at 1351, Routine, Anesthesia Intraprocedure Given 07/28/2024 1:09 PM EDT 3 g dexamethasone (Decadron) injection Intravenous, As needed, Starting on Fri07/28/24 at 1311, Until Fri07/28/24 at 1351, Routine, Anesthesia Intraprocedure Given 07/28/2024 1:11 PM EDT 4 mg fentaNYL (Sublimaze) injection Intravenous, As needed, Starting on Fri07/28/24 at 1301, Until Fri07/28/24 at 1351, Routine, Anesthesia Intraprocedure Given 07/28/2024 1:01 PM EDT 75 mcg lactated Ringer's infusion 75 mL/hr, Intravenous, Continuous, Starting on Fri07/28/24 at 0005, Until Fri07/28/24 at 1744, Routine New Bag 07/28/2024 12:54 PM EDT Restarted 07/28/2024 9:42 AM EDT 75 mL/hr 75 mL/hr New Bag 07/28/2024 1:42 AM EDT 75 mL/hr 75 mL/hr lidocaine PF (Xylocaine) 2 % injection Intravenous, As needed, Starting on Fri07/28/24 at 1301, Until Fri07/28/24 at 1351, Routine, Anesthesia Intraprocedure Given 07/28/2024 1:01 PM EDT 100 mg ondansetron (Zofran) injection Intravenous, As needed, Starting on Fri07/28/24 at 1328, Until Fri07/28/24 at 1351, Routine, Anesthesia Intraprocedure Given 07/28/2024 1:28 PM EDT 4 mg phenylephrine in NS (Rod-Synephrine) 100 mcg/mL prefilled syringe Intravenous, As needed, Starting on Fri07/28/24 at 1315, Until Fri07/28/24 at 1351, Routine, Anesthesia Intraprocedure Given 07/28/2024 1:15 PM EDT 100 mcg propofol (Diprivan) injection Intravenous, As needed, Starting on Fri07/28/24 at 1301, Until Fri07/28/24 at 1351, Routine, Anesthesia Intraprocedure Given 07/28/2024 1:01 PM EDT 150 mg rocuronium (ZeMuron) injection Intravenous, As needed, Starting on Fri07/28/24 at 1301, Until Fri07/28/24 at 1351, Routine, Anesthesia Intraprocedure Given 07/28/2024 1:01 PM EDT 50 mg sugammadex (Bridion) 100 MG/ML injection Intravenous, As needed, Starting on Fri07/28/24 at 1333, Until Fri07/28/24 at 1351, Routine, Anesthesia Intraprocedure Given 07/28/2024 1:36 PM EDT 200 mg Given 07/28/2024 1:33 PM EDT 200 mg documented in this encounter Additional Health Concerns Assessment Noted Time PHQ-9 Depression Total Score: 0 07/15/19 12:22 PM EDT A fall risk assessment has been complete d for the patient 07/14/2024 12:22 PM EDT A Body Mass Index follow-up plan has been documented for the patient 05/27/2024 1:13 PM EDT documented as of this encounter Care Teams Auto Mechanic Relationship Specialty Start Date End Date Efren Roy DO [address] [place] [address] [id number] PCP - General 03/04/23 Efren Roy DO [address] [place] [id number] Pain Medicine 01/03/23 Rosa Maria Beltran APRN [address] [facility] [address] [place] [phone] Nurse Practitioner Family Medicine 07/21/23 Bobby Vazquez MD [address] [facility] [address] [place] [address] Consulting Physician Medical Oncology 09/17/23 Cally Henderson PA [id number] [place] [phone] Physician Topographical Drafter Urology 09/17/23 documented as of this encounter
--- OUTSIDE RECORDS SUMMARY | 2024-08-02 09:30 | XMS_ITS | Encounter Summary ---
Author Organization [facility] Address [address] [place] [address] Care Team Providers Care Bellhop Service Captain Name Role Phone Efren Roy DO Unavailable [phone] Efren Roy DO Primary Care Provider [phone] Rosa Maria Beltran APRN Unavailable [phone] Bobby Vazquez MD Unavailable Cally Henderson Unavailable [phone] Reason for Visit * Reason Comments Labs PORT labs Encounter Details Date Type Department Care Team (Latest Contact Info) Description 08/02/2024 9:30 AM EDT Clinical Support [facility] [address] [place] [address] Post-surgical hypothyroidism Social History Tobacco Use Types Packs/Day Years [...] to sleep or slept in a senior living (including now)? No 02/28/2023 PHQ-9 Answer Date [...] you homeless or living in a senior living (including now)? No 05/27/2024 CAGE ASSESSMENT Answer [...] drink first t tianna in the morning (EYE-PATIENT SCHEDULER) to steady your nerves or to get [...] on file documented as of this encounter Plan of Treatment Upcoming Encounters Date Type Department Care Team (Late st Contact Info) Description 08/20/2024 9:30 AM EDT Office Visit [facility] Multidisciplinary Oncology Clinic [address] [place] [address] Sara Tesfaye, JYOTSNA 800 [facility] Shantel [address] [address] 08/27/2024 1:00 PM EDT Office Visit [facility] Multidisciplinary Oncology Clinic [address] [place] [address] Bobby Vazquez MD 800 [facility] [address] [address] 08/27/2024 1:00 PM EDT Clinical Support [facility] Multidisciplinary Oncology Clinic [address] [place] [address] 08/27/2024 2:30 PM EDT Appointment [facility] Infusion Clinic 2 [address] [place] [address] 09/17/2024 2:30 PM EDT Appointment [facility] 2 [address] [place] [address] 10/08/2024 2:30 PM EDT Appointment [facility]fusion [facility] 2 [address] [place] [address] 10/19/2024 11:30 AM EDT Office Visit [facility] [address] [place] [address] Kym Romero, CLINICAL EXERCISE SPECIALIST [address] [facility] Sh[address] [place] [address] 11/24/2024 11:00 AM EDT Office Visit [facility] [address] [place] [address] Adal Franklin MD [address] [place] [address] 12/15/2024 1:00 PM EDT Office Visit [facility] [address] [facility] [place] [address] Efren Fallon MD [address] [facility] [address] [place] [address] 12/29/2024 9:30 AM EDT Clinical Support [facility] [address] [facility] [place] [address] 12/29/2024 10:00 AM EDT Office Visit [facility] [address] [facility] [place] [address] Carlito Mccartney MD [address] [facility] [address] [place] [address] 03/23/2025 10:40 AM EST Office Visit [facility] [address] [facility], [address] [place] [address] Arabella Romero, CLINICAL EXERCISE SPECIALIST [address] [place] [address] documented as of this encounter Procedures Procedure Name Priority Date/Time Associated Diagnosis Comments TSH Routine 08/02/2024 9:30 AM EDT Post-surgical hypothyroidism FREE T4, PLASMA Routine 08/02/2024 9:30 AM EDT Post-surgical hypothyroidism documented in this encounter Results * T4, free (08/02/2024 9:30 AM EDT) Free T4, Plasma 1.6 0.8 - 1.7 ng/dL 08/02/2024 10:13 AM EDT [facility] Blood Blood sample taken from central line / Unknown (Port) Long-term Catheter / Unknown 08/02/2024 9:30 AM EDT 08/02/2024 9:36 AM EDT us Carlito Mccartney MD LAB BLOOD ORDERABLES Final Resu lt [facility] [address] [place] [address] * (ABNORMAL) TSH (08/02/2024 9:30 AM EDT) Thyroid Stimulating Hormone, Plasma 6.39(H) 0.40 - 4.20 uIU/mL 08/02/2024 10:13 AM EDT [facility] Blood Blood sample taken from central line / Unknown (Port) Long-term Catheter / Unknown 08/02/2024 9:30 AM EDT 08/02/2024 9:36 AM EDT us Carlito Mccartney MD LAB BLOOD ORDERABLES Final Resu lt [facility] [address] [place] [address] documented in this encounter Visit Diagnoses Diagnosis Post-surgical hypothyroidism Postsurgical hypothyroidism documented in this encounter Additional Health Concerns Assessment Noted Time PHQ-9 Depression Total Score: 0 07/15/19 25 12:22 PM EDT A fall risk assessment has been complete d for the patient 08/02/2024 8:51 AM EDT A Body Mass Index follow-up plan has been documented for the patient 05/27/2024 1:13 PM EDT documented as of this encounter Care Teams Bellhop Service Captain Relationship Specialty Start Date End Date Efren Roy DO [address] [place] [address] PCP - General 03/04/23 Efren Roy DO [address] [place] [address] Pain Medicine 01/03/23 Rosa Maria Beltran APRN [address] [facility] [address] [place] [address] Nurse Practitioner Family Medicine 07/21/23 Bobby Vazquez MD 800 [facility] [address] [place] [address] Consulting Physician Medical Oncology 09/17/23 Cally Henderson PA [address] [facility] [address] [place] [address] Physician Appraisal Analyst Urology 09/17/23 documented as of this encounter
--- OUTSIDE RECORDS SUMMARY | 2024-08-02 10:00 | XMS_ITS | Encounter Summary ---
Author Organization [facility] Address [address] [place] [address] Care Team Providers Care Tip Fixer Name Role Phone Efren Roy DO Unavailable [phone] Efren Roy DO Primary Care Provider Rosa Maria Beltran APRN Unavailable [phone] Bobby Vazquez MD Unavailable Cally Henderson Unavailable Reason for Visit * Reason Comments Follow-up Encounter Details Date Type Department Care Team (Late st Contact Info) Description 08/02/2024 10:00 AM EDT Office Visit [facility] Res[facility] 800 [facility], 2nd [place] [address] Carlito Mccartney MD [address] [place] [address] Post-surgical hypothyroidism (Primary Dx); H/O malignant neoplasm [...] place to sleep or slept in a custodial (including now)? No 02/28/2023 PHQ-9 Answer Date [...] any time in the past 12 m [facility], were you homeless or living in a custodial (including now)? No 05/27/2024 CAGE ASSESSMENT Answer [...] drink first t tianna in the morning (EYE-PLATFORM WORKER) to steady your nerves or to get rid of a hangover? 0 02/27/2023 CAGE Questionnaire Score 0 023 Utilities Answer Date Recorded In the past 12 months has th e [employer], gas, oil, or water company threatened to [...] months. Electronically signed by: Carlito Mccartney MD [facility] [place]. [address] PHONE [phone] FAX: [phone] documented in this encounter Plan of Treatment Upcoming Encounters Date Type Department Care Team (Late st Contact Info) Description 08/20/2024 9:30 AM EDT Office Visit [facility] [address] [place] [address] Sara Tesfaye APRN 800 [facility] [address] Kenneth [facility] [address] [place] [address] 08/27/2024 1:00 PM EDT Office Visit [facility] Multidisciplinary Oncology Clinic [address] [place] [address] Bobby Vazquez MD [address] [facility] [address] Cooper [facility] 134 [place] [address] 08/27/2024 1:00 PM EDT Clinical Support [facility] [address] [place] [address] 08/27/2024 2:30 PM EDT Appointment [facility] 2 [address] [place] [address] 09/17/2024 2:30 PM EDT Appointment [facility] Infusion Clinic 2 [address] [place] [address] 10/08/2024 2:30 PM EDT Appointment [facility] Infusion Clinic 2 [address] [place] [address] 10/19/2024 11:30 AM EDT Office Visit [facility] Multidisciplinary Oncology Clinic [address] [place] [address] Kym Romero, PERFECT BIND MACHINE OPERATOR 800 [facility] Kenneth [facility] [address] [place] [address] 11/24/2024 11:00 AM EDT Office Visit [facility] Multidisciplinary Oncology Clinic [address] [place] [address] Adal Franklin MD [address] [place] [address] 12/15/2024 1:00 PM EDT Office Visit [facility] [address] [place] [address] Efren Fallon MD [address] [facility] [address] [place] [address] 12/29/2024 9:30 AM EDT Clinical Support [facility] Res[facility] 800 [facility], [address]nd [place] [address] 12/29/2024 10:00 AM EDT Office Visit [facility] Res[facility] [address] [facility], [address] [place] [address] Carlito Mccartney MD [address] [facility] [address] [place] [address] 03/23/2025 10:40 AM EST Office Visit [facility] Respiratory [address] [facility], [address] [place] [address] Arabella Romero, PERFECT BIND MACHINE OPERATOR [address] [place] [address] Scheduled Orders Name Type Priority Associated Diagnoses [...] documented as of this encounter Care Teams Tip Fixer Relationship Specialty Start Date End Date Efren Roy DO [address] [place] [address] PCP - General 03/04/23 Efren Roy DO [address] [place] [address] Pain Medicine 01/03/23 Rosa Maria Beltran APRN [address] [place] [address] Nurse Practitioner Family Medicine 07/21/23 Bobby Vazquez MD 800 [facility] [address] [place] [address] Consulting Physician Medical Oncology 09/17/23 Cally Henderson PA [address] [facility] [address] [place] [address] Physician Fabrication Department Supervisor Urology 09/17/23 documented as of this encounter
--- OUTSIDE RECORDS SUMMARY | 2024-08-06 11:30 | XMS_ITS | Encounter Summary ---
Author Organization [facility] Address [address] [place] [address] Care Team Providers Care Weatherization Administrator Name Role Phone Efren Roy DO Unavailable [phone] Efren Roy DO Primary Care Provider [phone] Rosa Maria Beltran APRN Unavailable [phone] Bobby Vazquez MD Unavailable Cally Henderson Unavailable [phone] Encounter Details Date Type Department Care Team (Latest Contact Info) Description 08/06/2024 11:30 AM EDT Clinical Support [facility] Multidisciplinary Oncology Clinic [address] [place] [address] Social History Tobacco Use Types Packs/Day Years [...] in the past 12 m [facility], were you homeless or living in [...] drink first t tianna in the morning (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 0 02/27/2023 CAGE Questionnaire Score 0 023 Utilities Answer Date Recorded In the past 12 months has e [employer], gas, oil, or water [employer] threatened to shut off services in your [...] at all 08/06/2024 11:03 AM EDT Gretchen eWi documented as of this encounter Miscellaneous Notes [...] Description 08/20/2024 9:30 AM EDT Office Visit [facility] Multidisciplinary Oncology Clinic [address] [place] [phone] Sara Tesfaye, ACTUARIAL ASSOCIATE [address] [facility] Shantel Cooper [address] [address] 08/27/2024 1:00 PM EDT Office Visit [facility] Multidisciplinary Oncology Clinic [address] [place] [phone] Bobby Vazquez MD 800 [facility] Kenneth [address] [address] 08/27/2024 1:00 PM EDT Clinical Support [facility] Multidisciplinary Oncology Clinic [address] [place] [address] 08/27/2024 2:30 PM EDT Appointment [facility] Infusion Clinic [address] [place] [address] 09/17/2024 2:30 PM EDT Appointment [facility] Infusion Clinic [address] [place] [phone] 10/08/2024 2:30 PM EDT Appointment [facility] Infusion [facility] [address] [place] [phone] 10/19/2024 11:30 AM EDT Office Visit [facility] Multidisciplinary Oncology Clinic [address] [place] [address] Kym Romero, ACTUARIAL ASSOCIATE [address] [facility] Kenneth [facility] [address] [place] [address] 11/24/2024 11:00 AM EDT Office Visit [facility] Multidisciplinary Oncology Clinic [address] [place] [address] Adal Franklin MD [address] [place] [address] 12/15/2024 1:00 PM EDT Office Visit [facility] [address] [facility] [place] [address] Efren Fallon MD [address] [facility] [address] [place] [address] 12/29/2024 9:30 AM EDT Clinical Support [facility] [address] [facility] [place] [address] 12/29/2024 10:00 AM EDT Office Visit [facility] [address] [facility] [place] [address] Carlito Mccartney MD [address] [facility] [address] [place] [address] 03/23/2025 10:40 AM EST Office Visit [facility] [address] [facility] [place] [address] Arabella Romero, ACTUARIAL ASSOCIATE [address] [place] [address] documented as of this encounter [...] documented as of this encounter Care Teams Weatherization Administrator Relationship Specialty Start Date End Date Efren Roy DO [address] [place] [address] PCP - General 03/04/23 Efren Roy DO [address] [place] [address] Pain Medicine 01/03/23 Rosa Maria Beltran APRN [address] [facility] [address] [place] [address] Nurse Practitioner Family Medicine 07/21/23 Bobby Vazquez MD [address] [facility] [address] [place] [address] Consulting Physician Medical Oncology 09/17/23 Cally Henderson PA [address] [facility] [address] [place] [address] Physician [employer] Urology 09/17/23 documented as of this encounter
--- OUTSIDE RECORDS SUMMARY | 2024-08-06 11:30 | XMS_ITS | Encounter Summary ---
Author Organization [facility] Address [address] 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 0 02/27/2023 CAGE Questionnaire Score 0 023 Utilities Answer Date Recorded In the past 12 months has th e [facility], gas, oil, or water [employer] threatened to shut off services in your [...] unfortunately, he is not a candidate for [id number] due to the size of his regional [...] (08/27/2023) 11/28/2023 - 04/16/2024 Research Study Participant [id number]: Arm 1: Sacituzumab govitecan weekly x 2 Every 21 Days Plan Provider: Bobby Vazquez MD Treatment goal: [No plan goal] Line of treatment: [No plan line of treatment] Associated studies: [facility] RESEARCH PATIENT 07/23/2024 - Chemotherapy DOCEtaxel (Taxotere) [...] Total DLP (Dose-Length Product): 993.50 mGy.cm (accession [id number]), 993.50 mGy.cm (accession [id number]). Please note: The reported value represents the [...] unfortunately, he is not a candidate for [id number] due to the size of his regional [...] pembro + EV - Currrently enrolled on [id number]: A Phase III Randomized Trial of Eribulin (NSC #[id number]) with or Without Gemcitabine Versus Standard of [...] - Will cont to monitor, followed by Hospital Sales Representative #Hyperphosphatemia - Phosphorus level 5.5 on 06/16/2024, [...] APRN [facility] 1st floor [facility], . * Progress Notes - Rocky [...] 01/10/23: Will plan to start potentially neoadjuvant Wilder/Cis. Creatinine is just below 60 ml/min today [...] and if positive will likely refer to [facility]. Will continue EV + Pembro for now. 07/30/23: Lung bx was aborted due to resolution of the lesion. Will continue current treatment. 11/28/23: Patient begins treatment on [id number]: Arm 1: Sacituzumab govitecan weekly x2 every [...] which NICOLE is enrolling him in the [employer] portal for future treatment. Labs otherwise ok [...] 1: 08/06/24 Rx information Rx sent to: [facility] Refills will be due: June 2024 Prior Treatment History: Wilder/Cis Cycle 1: 01/10/23 Cycle 2: 01/31/23 Cycle 3: 02/21/23 EV + Pembro Cycle 1: 03/26, 04/02/23 Cycle 2: 04/16, 04/23/23 Cycle 3: 05/06, 05/14/23 Cycle 4: 05/27, 06/04/23 Cycle 5: 06/17, 06/25/23 Cycle 6: 07/08, 07/16/23 Cycle 7: 07/29, 08/06/23 Cycle 8: 08/19, 08/27/23 Sacituzumab govitecan ([id number]: Arm 1) Cycle 1: 11/28/23, 12/05/23 Cycle [...] Visit [facility] [address] [place] [address] Sara Tesfaye APRN [address] [address] 08/27/2024 1:00 PM EDT Office Visit [facility] [address] [place] [address] Bobby Vazquez MD [address] [address] 08/27/2024 1:00 PM EDT Clinical Support [facility] [address] [place] [address] 08/27/2024 2:30 PM EDT Appointment [facility] 2 [address] [place] [address] 09/17/2024 2:30 PM EDT Appointment [facility] 2 [address] [place] [address] 10/08/2024 2:30 PM EDT Appointment [facility] 2 [address] [place] [address] 10/19/2024 11:30 AM EDT Office Visit [facility] [address] [place] [address] Kym Romero, PRESS ROOM SUPERVISOR 800 [facility] [address] [place] [address] 11/24/2024 11:00 AM EDT Office Visit [facility] [address] [place] [phone] Adal Franklin MD [address] [facility] [address] [place] [address] 12/15/2024 1:00 PM EDT Office Visit [facility] [address] [place] [address] Efren Fallon MD 110 [facility] [address] [place] [address] 12/29/2024 9:30 AM EDT Clinical Support [facility] 800 [facility], 2nd [place] [address] 12/29/2024 10:00 AM EDT Office Visit [facility] 800 [facility], [address] [place] [address] Carlito Mccartney MD [address] [facility] [address] [place] [address] 03/23/2025 10:40 AM EST Office Visit [facility] 800 [facility], [address] [place] [address] Arabella Romero, PRESS ROOM SUPERVISOR [address] [place] [address] documented as of this encounter [...] - 99 mg/dL 08/06/2024 12:16 PM EDT [facility] BUN, Plasma 21 8 - 23 mg/dL 08/06/2024 12:16 PM EDT [facility] Creatinine, Plasma 1.05 0.70 - 1.20 mg/dL 08/06/2024 12:16 PM EDT [facility] BUN/Creatinine Ratio 20 08/06/2024 12:16 PM EDT [facility] Sodium, Plasma 133(L) 136 - 145 mmol/L 08/06/2024 12:16 PM EDT [facility] Potassium, Plasma 4.5 3.6 - 4.9 mmol/L 08/06/2024 12:16 PM EDT [facility] Chloride, Plasma 97 97 - 107 mmol/L 08/06/2024 12:16 PM EDT [facility] CO2, Plasma 23 22 - 29 mmol/L 08/06/2024 12:16 PM EDT [facility] Anion Gap 13 6 - 16 mmol/L 08/06/2024 12:16 PM EDT [facility] Total Calcium, Plasma 9.9 8.9 - 10.2 mg/dL 08/06/2024 12:16 PM EDT [facility] Total Protein 7.8 6.3 - 7.9 g/dL 08/06/2024 12:16 PM EDT [facility] Albumin, Plasma 4.3 3.5 - 5.2 g/dL 08/06/2024 12:16 PM EDT [facility] AST, Plasma 43 10 - 50 U/L 08/06/2024 12:16 PM EDT [facility] ALT, Plasma 30 10 - 50 U/L 08/06/2024 12:16 PM EDT [facility] Alkaline Phosphatase, Plasma 117(H) 40 - 115 U/L 08/06/2024 12:16 PM EDT [facility] Total Bilirubin, Plasma 0.2 0.2 - 1.1 mg/dL 08/06/2024 12:16 PM EDT [facility] eGFRcr 81.3 mL/min/1.7 3m*2 08/06/2024 12:16 PM EDT [facility] Comment:Reported eGFRcr in m L/min/1.73m2 is based the CKD-EPI 2020 equation that does not use a race coefficient. Blood Venous blood specimen / Unknown 08/06/2024 11:45 AM EDT us Bobby Vazquez MD LAB BLOOD ORDERABLES Final Resul t [facility] [address] [place] [address] * (ABNORMAL) CBC and Differential (08/06/2024 11:26 AM EDT) WBC Count 22.24(H) 3.70 - 10.30 10*3/uL LAB HEMATOLOGY METHOD 08/06/2024 12:23 PM EDT [facility] RBC Count 4.38(L) 4.60 - 6.10 10*6/uL LAB HEMATOLOGY METHOD 08/06/2024 12:23 PM EDT [facility] HGB 11.2(L) 13.7 - 17.5 g/dL LAB HEMATOLOGY METHOD 08/06/2024 12:23 PM EDT [facility] HCT 34.8(L) 40.0 - 51.0 % LAB HEMATOLOGY METHOD 08/06/2024 12:23 PM EDT [facility] Platelet Count 313 155 - 369 10*3/uL LAB HEMATOLOGY METHOD 08/06/2024 12:23 PM EDT [facility] MCV 80 79 - 98 fL LAB HEMATOLOGY METHOD 08/06/2024 12:23 PM EDT [facility] MCH 25.6(L) 26.0 - 32.0 pg LAB HEMATOLOGY METHOD 08/06/2024 12:23 PM EDT [facility] MCHC 32.2 30.7 - 35.5 g/dL LAB HEMATOLOGY METHOD 08/06/2024 12:23 PM EDT [facility] RDW 17.2(H) 11.5 - 14.5 % LAB HEMATOLOGY METHOD 08/06/2024 12:23 PM EDT [facility] MPV 9.4 8.8 - 12.5 fL LAB HEMATOLOGY METHOD 08/06/2024 12:23 PM EDT [facility] nRBC 0.0 <=0.0 per 100 WBCs LAB HEMATOLOGY METHOD 08/06/2024 12:23 PM EDT [facility] Differential Type Automated LAB HEMATOLOGY METHOD 08/06/2024 12:23 PM EDT [facility] Neutrophils % 86 % LAB HEMATOLOGY METHOD 08/06/2024 12:23 PM EDT [facility] Lymphocytes % 7 % LAB HEMATOLOGY METHOD 08/06/2024 12:23 PM EDT [facility] Monocytes % 5 % LAB HEMATOLOGY METHOD 08/06/2024 12:23 PM EDT [facility] Eosinophils % 0 % LAB HEMATOLOGY METHOD 08/06/2024 12:23 PM EDT [facility] Basophils % 0 % LAB HEMATOLOGY METHOD 08/06/2024 12:23 PM EDT [facility] Immature Granulocytes % 2 % LAB HEMATOLOGY METHOD 08/06/2024 12:23 PM EDT [facility] Neutrophils Absolute 19.25(H) 1.60 - 6.10 10*3/uL LAB HEMATOLOGY METHOD 08/06/2024 12:23 PM EDT [facility] Lymphocytes Absolute 1.45 1.20 - 3.90 10*3/uL LAB HEMATOLOGY METHOD 08/06/2024 12:23 PM EDT [facility] Monocytes Absolute 1.14(H) 0.30 - 0.90 10*3/uL LAB HEMATOLOGY METHOD 08/06/2024 12:23 PM EDT [facility] Eosinophils Absolute 0.01 0.00 - 0.50 10*3/uL LAB HEMATOLOGY METHOD 08/06/2024 12:23 PM EDT [facility] Basophils Absolute 0.04 0.00 - 0.10 10*3/uL LAB HEMATOLOGY METHOD 08/06/2024 12:23 PM EDT [facility] Immature Granulocytes Absolute 0.35(H) 0.00 - 0.06 10*3/uL LAB HEMATOLOGY METHOD 08/06/2024 12:23 PM EDT [facility] Blood Venous blood specimen / Unknown (Central Line) Existing Catheter / Unknown 08/06/2024 11:26 AM EDT 08/06/2024 12:20 PM EDT Narrative [facility] - 08/06/2024 12:23 PM EDT Therapeutic decision making should be based on absolute values, rather than percentages. Bobby Vazquez MD LAB BLOOD ORDERABLES Final Resul t [facility] [address] [place] [phone] documented in this encounter Visit Diagnoses Diagnosis [...] documented as of this encounter Care Teams Volleyball Player Relationship Specialty Start Date End Date Efren Roy DO [address] [place] [phone] PCP - General 03/04/23 Efren Roy DO [address] [place] [phone] Pain Medicine 01/03/23 Rosa Maria Beltran APRN [address] [place] [address] [address] [place] [address] Nurse Practitioner Family Medicine 07/21/23 Bobby Vazquez MD 800 [facility] [address] [place] [address] Consulting Physician Medical Oncology 09/17/23 Cally Henderson PA [address] [facility] [address] [place] [address] Physician Plumbing Engineer Urology 09/17/23 documented as of this encounter
--- OUTSIDE RECORDS SUMMARY | 2024-08-06 12:29 | XMS_ITS | Encounter Summary ---
Author Organization [facility] Address [address] [place] [address] Care Team Providers Care Enrollment Representative Name Role Phone Efren Roy DO Unavailable [phone] Efren Roy DO Primary Care Provider [phone] Rosa Maria Beltran APRN Unavailable [phone] Bobby Vazquez MD Unavailable Cally Henderson Unavailable [phone] Reason for Visit * Episode Based Medications (Routine) - Authorized Specialty Diagnoses / Procedures Referred By Contmartha t Referred To Contact Diagnoses Malignant tumor of right ureter (CMS/HCC) Procedures DOCEtaxel Every 21 Days Bobby Vazquez MD [address] [address] Phone: tel: fax: Bobby Vazquez MD [address] [address] Phone: tel: fax: Referral ID Status Reason Start Date Expiration Date V isits Requested Visits Authorized [id number] Authorized 07/21/2024 01/20/2026 1 3 Encounter Details Date Type Department Care Team (Latest Contact Info) Description 08/06/2024 12:29 PM EDT - 08/06/2024 11:59 PM EDT Hospital Encounter [facility] 1 [address] [place] [address] 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 No 02/28/2023 PHQ-9 Answer Date [...] were you homeless or living in a mcfp (including now)? No 05/27/2024 CAGE ASSESSMENT Answer [...] drink first t tianna in the morning (EYE-FIRE SPRINKLER INSTALLER) to steady your nerves or to get rid of a hangover? 0 02/27/2023 CAGE Questionnaire Score 0 023 Utilities Answer Date Recorded In the past 12 months has e [employer], gas, oil, or water [employer] threatened to shut off services in your [...] Sign Reading Time Taken Comments Blood Pressure 96/46 08/06/2024 4:23 PM EDT Pulse 84 08/06/2024 4:23 PM EDT Temperature 37 C (98.6 F) 08/06/2024 12:32 PM EDT Respiratory Rate 17 08/06/2024 12:32 PM EDT Oxygen Saturation 98% 08/06/2024 12:32 PM EDT Inhaled Oxygen Concentration - - Weight 76.3 kg (168 lb 3.4 oz) 08/06/2024 12:32 PM EDT Height 177.8 cm (5' 10 ) 08/06/2024 12:32 PM EDT Body Mass Index 24.14 08/06/2024 12:32 PM EDT documented in this encounter Functional [...] all 08/06/2024 11:03 AM EDT Gretchen Wei documented as of this encounter Medications at [...] 3 (three) times a day. hydrOXYzine pamoate (Vistaril) 25 MG capsule Take 1 capsule by mouth 3 times a day as needed for anxiety. 30 capsule 07/29/2024 lactulose (Chronulac) 10 GM/15ML oral solution Take 15 mL by mouth 2 times a day as needed (For constipation. Hold for diarrhea). 946 mL 1 08/06/2024 5 loperamide (Imodium A-D) 2 MG tabletIndications:D ehydration,Malignan [...] for mouth sores). 237 mL 3 04/30/2024 morphine CR (MS Contin) 15 MG 12 hr tablet TAKE 1 TABLET 2 TIMES EACH DAY DO NOT CRUSH, CHEW OR SPLIT. 60 tablet 05/05/2023 mupirocin (Bactroban) 2 % ointment Put muprocin in bilateral nares twice daily for 7 days 1 g 12/26/2023 Nutritional Supplements (nepro/carb steady) Take 237 mL by mouth 2 (two) times a day. [address]267 mL 5 06/16/2024 5 OLANZapine (ZyPREXA) 5 MG tablet Take 1 tablet by mouth nightly. Please send to infusion chair WH1 30 tablet 2 08/06/2024 ondansetron ODT (Zofran-ODT) 4 MG disintegrating tablet [...] Take 17 g by mouth daily. prochlorperazine (Compazine) 10 MG tabletIndications:D ehydration,Malignan t tumor of right ureter (CMS/HCC) Take 1 tablet by mouth every 6 hours as needed for nausea or vomiting. 30 tablet 5 08/06/2024 senna-docusate sodium (Senokot-S) 8.6-50 MG tablet Take 1 tablet by mouth 1 (one) time each day. 30 tablet 3 05/28/2023 tamsulosin (Flomax) 0.4 MG 24 hr capsule TAKE 1 CAPSULE BY MOUTH ONCE A DAY WITH DINNER 30 capsule 02/17/2023 Tirosint 125 MCG capsule Take 1 capsule by mouth daily before breakfast. 90 capsule 1 08/02/2024 tiZANidine (Zanaflex) 2 MG tablet Take 1 [...] Take 1 tablet by mouth nightly. 5 documented as of this encounter Plan of Treatment Upcoming Encounters Date Type Department Care Team (Late st Contact Info) Description 08/20/2024 9:30 AM EDT Office Visit [facility] Multidisciplinary Oncology Clinic [address] [place] [address] Sara Tesfaye APRN 800 [facility] [address] [place] [address] 08/27/2024 1:00 PM EDT Office Visit [facility] Mult[facility] Oncology Clinic [address] [place] [address] Bobby Vazquez MD 800 [facility] [address] [place] [address] 08/27/2024 1:00 PM EDT Clinical Support [facility] [address] [place] [address] 08/27/2024 2:30 PM EDT Appointment [facility] 2 [address] [place] [address] 09/17/2024 2:30 PM EDT Appointment [facility] 2 [address] [place] [address] 10/08/2024 2:30 PM EDT Appointment [facility] 2 [address] [place] [address] 10/19/2024 11:30 AM EDT Office Visit [facility] Multidisciplinary Oncology Clinic [address] [place] [address] Kym Romero, PROJECT MANAGER/TEAM COACH 800 [facility] [address] [place] [address] 11/24/2024 11:00 AM EDT Office Visit [facility] Mult[facility]isciplinary Oncology Clinic [address] [place] [address] Adal Franklin [facility] [address] [facility] [address] [place] [address] 12/15/2024 1:00 PM EDT Office Visit [facility] [address] [place] [address] Efren Fallon MD [address] [facility] [address] [place] [address] 12/29/2024 9:30 AM EDT Clinical Support [facility] 800 [facility], [address] [place] [address] 12/29/2024 10:00 AM EDT Office Visit [facility] 800 [facility] [address] [place] [address] Carlito Mccartney MD [address] [place] [address] 03/23/2025 10:40 AM EST Office Visit [facility] 800 [facility], [address]nd [place] [address] Arabella Romero, PROJECT MANAGER/TEAM COACH [address] [place] [address] documented as of this encounter Visit Diagnoses Diagnosis 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 Malignant neoplasm of urinary bladder, unspecified site (CMS/HCC) Dysuria documented in this encounter Administered Medications Inactive Administered Medications - up to 3 most recent administrations Medication Order MAR Action Action Date Dose Rate Site cetirizine (ZyrTEC) tablet 10 mg 10 mg, Oral, Once, 1 dose, On Fri08/06/24 at 1430, RoutineIndications:Malignant tumor of right ureter (CMS/HCC) Given 08/06/2024 2:19 PM EDT 10 mg DOCEtaxel (Taxotere) 150 mg in sodium chloride 0.9 % 250 mL IVPB 150 mg (rounded from 148.5 mg = 75 mg/m2 1.98 m2 Treatment Plan BSA from Recorded weight), Intravenous, at 310 mL/hr, Administer over 60 Minutes, Once, Hazardous Drug-Tier 1 Precautions. Dispose in BLACK Hazardous Waste Container. Chemotherapy: refer to [id number]., On Fri08/06/24 at 1500, For 1 doseIndications:Malignant tumor of right ureter (CMS/HCC) New Bag 08/06/2024 3:23 PM EDT 150 mg 310 mL/hr documented in this encounter Additional Health Concerns Assessment Noted Time PHQ-9 Depression Total Score: 0 07/15/19 12:22 PM EDT A fall risk assessment has been complete d for the patient 08/06/2024 12:31 PM EDT A Body Mass Index follow-up plan has been documented for the patient 05/27/2024 1:13 PM EDT documented as of this encounter Care Teams Enrollment Representative Relationship Specialty Start Date End Date Efren Roy DO [address] [place], [place] [phone] PCP - General 03/04/23 Efren Roy DO [address] [place], [place] [phone] Pain Medicine 01/03/23 Rosa Maria Beltran APRN [address] [place] [address] [address] [place] [address] Nurse Practitioner Family Medicine 07/21/23 Bobby Vazquez MD 800 [facility] [address] [place] [address] Consulting Physician Medical Oncology 09/17/23 Cally Henderson PA [address] [facility] [address] [place] [address] Physician Cattle Feeder Urology 09/17/23 documented as of this encounter
--- OUTSIDE RECORDS SUMMARY | 2024-08-19 12:05 | XMS_ITS | Encounter Summary ---
Author Organization [facility] Address [address] [place] [address] Care Team Providers Care Steamer Tender Name Role Phone Efren Roy DO Unavailable [phone] Efren Roy DO Primary Care Provider [phone] Rosa Maria Beltran APRN Unavailable [phone] Bobby Vazquez MD Unavailable Cally Henderson Unavailable [phone] Encounter Details Date Type Department Care Team (Late st Contact Info) Description 07/19/2024 [facility] [address] [place] [address] Rosa Maria Eckert MD [address] [address] Social History Tobacco Use Types [...] any time in the past 12 m [facility], were you homeless or [...] drink first t tianna in the morning (EYE-COMMUNITY RESOURCE OFFICER) to steady your nerves or to [...] Office Visit [facility] [address] [place] [phone] Sara Tesfaye, ADMINISTRATION PROFESSIONAL [address] [facility] [address] [address] 08/27/2024 1:00 PM EDT Office Visit [facility] [address] [place] [address] Bobby Vazquez MD [address] [facility] [place] [address] 08/27/2024 1:00 PM EDT Clinical Support [facility] [address] [place] [address] 08/27/2024 2:30 PM EDT Appointment [facility] [address] [place] [phone] 09/17/2024 2:30 PM EDT Appointment [facility] [address] [place] [phone] 10/08/2024 2:30 PM EDT Appointment [facility] [address] [place] [address] 10/19/2024 11:30 AM EDT Office Visit [facility] [address] [place] [phone] Kym Romero, ADMINISTRATION PROFESSIONAL [address] [facility] [address] [place] [address] 11/24/2024 11:00 AM EDT Office Visit [facility] [address] [place] [phone] Adal Franklin MD [address] [place] [address] 12/15/2024 1:00 PM EDT Office Visit [facility] [address] [place] [address] Efren Fallon MD [address] [facility] [address] [place] [address] 12/29/2024 9:30 AM EDT Clinical Support [facility] [address] [facility] [place] [address] 12/29/2024 10:00 AM EDT Office Visit [facility] [address] [facility] [place] [address] Carlito Mccartney MD [address] [facility] [address] [place] [address] 03/23/2025 10:40 AM EST Office Visit [facility] [address] [facility] [place] [address] Arabella Romero, ADMINISTRATION PROFESSIONAL [address] [place] [address] documented as of this encounter [...] documented as of this encounter Care Teams Steamer Tender Relationship Specialty Start Date End Date Efren Roy DO [address] [place] [address] PCP - General 03/04/23 Efren Roy DO [address] [place] [address] Pain Medicine 01/03/23 Rosa Maria Beltran, JYOTSNA [address] [facility] [address] [place] [address] Nurse Practitioner Family Medicine 07/21/23 Bobby Vazquez MD [address] [facility] [address] [place] [phone] Consulting Physician Medical Oncology 09/17/23 Cally Henderson PA [address] [address] Physician Loading Supervisor Urology 09/17/23 documented as of this encounter
--- OUTSIDE RECORDS SUMMARY | 2024-08-19 12:05 | XMS_ITS | Encounter Summary ---
Author Organization [facility] Address [address] [place] [address] Care Team Providers Care Computer Field Technician Name Role Phone Efren Roy DO Unavailable [phone] Efren Roy DO Primary Care Provider [phone] Rosa Maria Beltran APRN Unavailable [phone] Bobby Vazquez MD Unavailable Cally Henderson Unavailable [phone] Encounter Details Date Type Department Care Team [...] any time in the past 12 m [facility], were you homeless or living in [...] drink first t tianna in the morning (EYE-CONSUMER AFFAIRS SPECIALIST) to steady your nerves or to get rid of a hangover? 0 02/27/2023 CAGE Questionnaire Score 0 023 Utilities Answer Date Recorded In the past 12 months has th [employer], gas, oil, or water company threatened to [...] Description 08/20/2024 9:30 AM EDT Office Visit [facility] Multidisciplinary Oncology Clinic [address] [place] [address] Sara Tesfaye, JYOTSNA [address] [address] 08/27/2024 1:00 PM EDT Office Visit [facility] Multidisciplinary Oncology Clinic [address] [place] [address] Bobby Vazquez MD [address] [address] 08/27/2024 1:00 PM EDT Clinical Support [facility] Multidisciplinary Oncology Clinic [address] [place] [address] 08/27/2024 2:30 PM EDT Appointment [facility] Infusion Clinic 2 [address] [place] [address] 09/17/2024 2:30 PM EDT Appointment [facility] Infusion Clinic 2 [address] [place] [address] 10/08/2024 2:30 PM EDT Appointment [facility] 2 [address] [place] [address] 10/19/2024 11:30 AM EDT Office Visit [facility] [address] [place] [address] Kym Romero, STOCKROOM WORKER 800 [facility] Shantel [address] Saurav [address] [place] [address] 11/24/2024 11:00 AM EDT Office Visit [facility] [address] [place] [address] Adal Franklin MD [address] [facility] [address] [place] [address] 12/15/2024 1:00 PM EDT Office Visit [facility] [address] [facility] [place] [address] Efren Fallon MD 110 [address] [facility] [address] [place] [address] 12/29/2024 9:30 AM EDT Clinical Support [facility] 800 [facility], 2nd [place] [address] 12/29/2024 10:00 AM EDT Office Visit [facility] 800 [facility] 2nd [place] [address] Carlito Mccartney MD 2195 [facility] [address] [place] [address] 03/23/2025 10:40 AM EST Office Visit [facility] 800 [facility], [address]nd [place] [address] Arabella Romero, STOCKROOM WORKER [address] [place] [address] documented as of this encounter Visit Diagnoses [...] documented as of this encounter Care Teams Computer Field Technician Relationship Specialty Start Date End Date Efren Roy DO [address] [place] [address] [id number] PCP - General 03/04/23 Efren Roy DO [address] [place] [address] [id number] Pain Medicine 01/03/23 Rosa Maria Beltran APRN [address] [place] [address] [address] [place] [address] Nurse Practitioner Family Medicine 07/21/23 Bobby Vazquez MD 800 [facility] Saurav [address] [place] [address] Consulting Physician Medical Oncology 09/17/23 Cally Henderson PA [address] [facility] [address] [place] [address] Physician Thermoplastic Technician Urology 09/17/23 documented as of this encounter
--- OUTSIDE RECORDS SUMMARY | 2024-08-19 12:05 | XMS_ITS | Encounter Summary ---
Author Organization [facility] Address [address] [place] [address] Care Team Providers Care Dispute Coordinator Name Role Phone Efren Roy DO Unavailable [phone] Efren Roy DO Primary Care Provider [phone] Rosa Maria Beltran APRN Unavailable Bobby Vazquez MD Unavailable Cally Henderson Unavailable Encounter Details Date Type Department Care Team (Late st Contact Info) Description 03/31/2023 Orders Only [facility]isciplinary Oncology [facility] 800 [place] [address] Bobby Vazquez MD [address] [address] Social History Tobacco Use Types [...] place to sleep or slept in a long term (including now)? No 02/28/2023 CAGE ASSESSMENT Answer [...] drink first t tianna in the morning (EYE-DIRECTOR LIFE SALES) to steady your nerves or to [...] Description 08/20/2024 9:30 AM EDT Office Visit [facility] Multidisciplinary Oncology Clinic 800 [place] [address] Sara Tesfaye, RUBBER GOODS TESTER WATER 800 [facility] Shantel Cooper [facility] 134 [place] [address] 08/27/2024 1:00 PM EDT Office Visit [facility] Multidisciplinary Oncology Clinic [address] [place] [address] Bobby Vazquez MD [address] [facility] Kenneth [facility] 134 [place] [address] 08/27/2024 1:00 PM EDT Clinical Support [facility] Multidisciplinary Oncology Clinic 800 [place] [address] 08/27/2024 2:30 PM EDT Appointment [facility] Infusion Clinic 2 [address] [place] [address] 09/17/2024 2:30 PM EDT Appointment [facility] Infusion Clinic 2 [address] [place] [address] 10/08/2024 2:30 PM EDT Appointment [facility] Infusion Clinic 2 4 [place] [address] 10/19/2024 11:30 AM EDT Office Visit [facility] Multidisciplinary Oncology Clinic 800 [place] [address] Kym Romero, RUBBER GOODS TESTER WATER 800 [facility] Shantel Cooper [facility] 134 [place] [address] 11/24/2024 11:00 AM EDT Office Visit [facility] Multidisciplinary Oncology Clinic [address] [place] [address] Adal Franklin MD [address] [place] [address] 12/15/2024 1:00 PM EDT Office Visit [facility] [address] [place] [address] Efren Fallon MD 110 [address] [facility] [address] [place] [address] 12/29/2024 9:30 AM EDT Clinical Support [facility] 800 [facility], 2nd [place] [address] 12/29/2024 10:00 AM EDT Office Visit [facility] 800 [facility], [address]nd [place] [address] Carlito Mccartney MD [address] [place] [address] 125 [place] [address] 03/23/2025 10:40 AM EST Office Visit [facility] 800 [facility], [address]nd [place] [address] Arabella Romero, RUBBER GOODS TESTER WATER 800 [place] [address] documented as of this encounter [...] documented as of this encounter Care Teams Dispute Coordinator Relationship Specialty Start Date End Date Efren Roy DO [address] [place] [address] PCP - General 03/04/23 Efren Roy DO [address] [place] [address] Pain Medicine 01/03/23 Rosa Maria Beltran APRN [address] [place] [address] 125 [place] [address] Nurse Practitioner Family Medicine 07/21/23 Bobby Vazquez MD 800 [facility] Saurav 134 [place] [address] Consulting Physician Medical Oncology 09/17/23 Cally Henderson PA 740 [address] [facility] [address] [place] [address] Physician Child And Adolescent Therapist Urology 09/17/23 documented as of this encounter
--- OUTSIDE RECORDS SUMMARY | 2024-08-19 12:05 | XMS_ITS | Encounter Summary ---
Author Organization [facility] Address [address] [place] [address] Care Team Providers Care Black Ash Worker Name Role Phone Efren Roy DO Unavailable [phone] Efren Roy DO Primary Care Provider [phone] Rosa Maria Beltran APRN Unavailable [phone] Bobby Vazquez MD Unavailable Cally Henderson Unavailable [phone] Encounter Details Date Type Department Care Team (Late st Contact Info) Description 06/23/2024 Telephone [facility] [address] [place] [address] Radha Ramos [address] [address] Social History Tobacco Use Types Packs/Day Years [...] drink first t tianna in the morning (EYE-PARIMUTUEL TICKET SELLER) to steady your nerves or to get rid of a hangover? 0 02/27/2023 CAGE Questionnaire Score 0 023 Utilities Answer Date Recorded In the past 12 months has th e [employer], gas, oil, or water [employer] threatened to shut off services in your [...] do Nepro for pt; [facility] which is similar to Nepro and [...] mouth 2 (two) times a day., Disp: 53002uC, Rfl: 5 OLANZapine (ZyPREXA) 10 MG tablet, [...] Description 08/20/2024 9:30 AM EDT Office Visit [facility] Multidisciplinary Oncology Clinic [address] [place] [address] Sara Tesfaye, BASEBOARD HEATING INSTALLER 800 [facility] Shantel Kenneth [facility] 134 [place] [address] 08/27/2024 1:00 PM EDT Office Visit [facility] Multidisciplinary Oncology Clinic 800 [place] [address] Bobby Vazquez MD 800 [facility] Shantel Cooper [facility] Saurav [address] [place] [address] 08/27/2024 1:00 PM EDT Clinical Support [facility]cology [facility] [address] [place] [address] 08/27/2024 2:30 PM EDT Appointment [facility] Infusion [facility] 2 [address] [place] [address] 09/17/2024 2:30 PM EDT Appointment [facility] 2 [address] [place] [address] 10/08/2024 2:30 PM EDT Appointment [facility] 2 [address] [place] [address] 10/19/2024 11:30 AM EDT Office Visit [facility] Multidisciplinary Oncology Clinic [address] [place] [address] Kym Romero, BASEBOARD HEATING INSTALLER 800 [facility] 134 [place] [address] 11/24/2024 11:00 AM EDT Office Visit [facility] Multidisciplinary Oncology Clinic [address] [place] [address] Adal Franklin MD [address] [facility] [address] [place] [address] 12/15/2024 1:00 PM EDT Office Visit [facility] 110 [place] [address] Efren Fallon MD 110 [facility] 550 [place] [address] 12/29/2024 9:30 AM EDT Clinical Support [facility] 800 [facility], 2nd [place] [address] 12/29/2024 10:00 AM EDT Office Visit [facility] 800 [facility], 2nd [place] [address] Carlito Mccartney MD 2195 [facility] 125 [place] [address] 03/23/2025 10:40 AM EST Office Visit [facility] 800 [facility], 2nd [place] [address] Arabella Romero, BASEBOARD HEATING INSTALLER 800 [place] [address] documented as of this encounter [...] documented as of this encounter Care Teams Black Ash Worker Relationship Specialty Start Date End Date Efren Roy DO [address] [place] [address] PCP - General 03/04/23 Efren Roy DO [address] [place] [address] Pain Medicine 01/03/23 Rosa Maria Beltran APRN 5 [facility] 125 [place] [address] Nurse Practitioner Family Medicine 07/21/23 Bobby Vazquez MD 800 [facility] Shantel Cooper [facility] Saurav 134 [place] [address] Consulting Physician Medical Oncology 09/17/23 Cally Henderson PA [address] 9211600 [place] [address] Physician Oracle Consultant Urology 09/17/23 documented as of this encounter
--- OUTSIDE RECORDS SUMMARY | 2024-08-19 12:05 | XMS_ITS | Encounter Summary ---
Author Organization [facility] Address [address] [place] [address] Care Team Providers Care Coil Assembler Name Role Phone Efren Roy DO Unavailable [phone] Efren Roy DO Primary Care Provider [phone] Rosa Maria Beltran APRN Unavailable [phone] Bobby Vazquez MD Unavailable Cally Henderson Unavailable [phone] Encounter Details Date Type Department Care Team [...] drink first t tianna in the morning (EYE-BOAT DESIGNER) to steady your nerves or to get [...] 9:30 AM EDT Office Visit [facility] Multidisciplinary Oncology Clinic 800 [place] [address] Sara Tesfaye APRN [address] [address] 08/27/2024 1:00 PM EDT Office Visit [facility] Multidisciplinary Oncology Clinic [address] [place] [address] Bobby Vazquez MD [address] [address] 08/27/2024 1:00 PM EDT Clinical Support [facility] Multidisciplinary Oncology Clinic 800 [place] [address] 08/27/2024 2:30 PM EDT Appointment [facility] Infusion Clinic 2 [address] [place] [address] 09/17/2024 2:30 PM EDT Appointment [facility] Infusion Clinic 2 [address] [place] [address] 10/08/2024 2:30 PM EDT Appointment [facility] 2 [address] [place] [address] 10/19/2024 11:30 AM EDT Office Visit [facility] Oncology [facility] 800 [place] [address] Kym Romero, JEWELRY TECHNICIAN 800 [facility] Shantel Kenneth [address] Saurav [address] [place] [address] 11/24/2024 11:00 AM EDT Office Visit [facility] 800 [place] [address] Adal Franklin MD [address] [facility] [address] [place] [address] 12/15/2024 1:00 PM EDT Office Visit [facility] [address] [facility] [place] [address] Efren Fallon MD 110 [address] [facility] 550 [place] [address] 12/29/2024 9:30 AM EDT Clinical Support [facility] 800 [facility] 2nd [place] [address] 12/29/2024 10:00 AM EDT Office Visit [facility] 800 [facility] [address]nd [place] [address] Carlito Mccartney MD 2195 [facility] 125 [place] [address] 03/23/2025 10:40 AM EST Office Visit [facility] [address] [address] Arabella Romero, JEWELRY TECHNICIAN 800 [place] [address] documented as of this encounter Visit Diagnoses [...] documented as of this encounter Care Teams Coil Assembler Relationship Specialty Start Date End Date Efren Roy DO [address] [place] [address] [id number] PCP - General 03/04/23 Efren Roy DO [address] [place] [address] Pain Medicine 01/03/23 Rosa Maria Beltran APRN 2195 [facility] Saurav 125 [place] [address] Nurse Practitioner Family Medicine 07/21/23 Bobby Vazquez MD 800 [facility] Saurav 134 [place] [address] Consulting Physician Medical Oncology 09/17/23 Cally Henderson PA 740 [address] [facility] [address] [place] [address] Physician Paint Tester Urology 09/17/23 documented as of this encounter
--- OUTSIDE RECORDS SUMMARY | 2024-08-19 12:05 | XMS_ITS | Encounter Summary ---
Author Organization [facility] Address [address] [place] [address] Care Team Providers Care Naval Aircrewman Operator Name Role Phone Efren Roy DO Unavailable [phone] Efren Roy DO Primary Care Provider [phone] Rosa Maria Beltran APRN Unavailable [phone] Bobby Vazquez MD Unavailable Cally Henderson Unavailable [phone] Reason for Visit * Reason Onset Date Comments Distress Screen Follow-up 07/06/2024 Encounter Details Date Type Department Care Team (Late st Contact Info) Description 07/06/2024 Telephone [facility] 800 [place] [address] Tarsha Rider Distress Screen Follow-up Social History [...] drink first t tianna in the morning (EYE-TEAM CDL DRIVER) to steady your nerves or to get [...] Call Disease Status: Established Patient Clinic Location: [facility] Disease Type: Urinary Bladder Intervention Level: 2 Units (1 unit = 15 minutes): 1 Narrative: latex foam worker contacted patient as a follow up to recent distress screen score. SW introduced self, explained non-urgent nature of the call, and inquired about patient's well-being. Patient endorses doing well overall. He is hopeful his Boost will be delivered today by [facility]. SW reiterated ongoing availability of Psych-Onc services to which the patient denied any immediate needs. SW encouraged patient to reach out should any questions or needs arise. Patient expressed understandingand appreciation for the call. Tarsha Rider, MANUFACTURING DIRECTOR, APN [facility] Psych-Oncology Services [phone] documented in this encounter Plan of Treatment Upcoming Encounters Date Type Department Care Team (Late st Contact Info) Description 08/20/2024 9:30 AM EDT Office Visit [facility] Multidisciplinary Oncology Clinic [address] [place] [address] Sara Tesfaye, JYOTSNA 800 [facility] Shantel Cooper [facility] [address] [place] [address] 08/27/2024 1:00 PM EDT Office Visit [facility] [address] [place] [address] Bobby Vazquez MD 800 [facility] Kenneth [facility] [address] [place] [address] 08/27/2024 1:00 PM EDT Clinical Support [facility] Multidisciplinary Oncology Clinic [address] [place] [address] 08/27/2024 2:30 PM EDT Appointment [facility] Infusion [facility] 2 [address] [place] [address] 09/17/2024 2:30 PM EDT Appointment [facility] Infusion Clinic 2 [address] [place] [address] 10/08/2024 2:30 PM EDT Appointment [facility] Infusion Clinic 2 [address] [place] [address] 10/19/2024 11:30 AM EDT Office Visit [facility] Multidisciplinary Oncology Clinic [address] [place] [address] Kym Romero, INTERPERSONAL COMMUNICATIONS PROFESSOR 800 [facility] Shantel Cooper [facility] [address] [place] [address] 11/24/2024 11:00 AM EDT Office Visit [facility] Multidisciplinary Oncology Clinic [address] [place] [address] Adal Franklin MD [address] [place] [address] 12/15/2024 1:00 PM EDT Office Visit [facility] [address] [facility] [place] [address] Efren Fallon MD 110 [address] [facility] 550 [place] [address] 12/29/2024 9:30 AM EDT Clinical Support [facility] 800 [facility], 2nd [place] [address] 12/29/2024 10:00 AM EDT Office Visit [facility] 800 [facility], [address] [place] [address] Carlito Mccartney MD [facility] 125 [place] [address] 03/23/2025 10:40 AM EST Office Visit [facility] 800 [facility], [address] [place] [address] Arabella Romero, INTERPERSONAL COMMUNICATIONS PROFESSOR 800 [place] [address] documented as of this encounter [...] documented as of this encounter Care Teams Naval Aircrewman Operator Relationship Specialty Start Date End Date Efren Roy DO [address] [place] [address] PCP - General 03/04/23 Efren Roy DO [address] [place] [address] Pain Medicine 01/03/23 Rosa Maria Beltran APRN [address] [facility] Saurav [address] [place] [address] Nurse Practitioner Family Medicine 07/21/23 Bobby Vazquez MD 800 [facility]el [facility] [address] [place] [address] Consulting Physician Medical Oncology 09/17/23 Cally Henderson PA [address] [place] [address] Physician River Tester Urology 09/17/23 documented as of this encounter
--- OUTSIDE RECORDS SUMMARY | 2024-08-19 12:05 | XMS_ITS | Encounter Summary ---
Author Organization [facility] Address [address] [place] [address] Care Team Providers Care Steamer Blocker Name Role Phone Efren Roy DO Unavailable [phone] Efren Roy DO Primary Care Provider Rosa Maria Beltran APRN Unavailable [phone] Bobby Vazquez MD Unavailable Cally Henderson Unavailable [phone] Encounter Details Date Type Department Care Team (Late st Contact Info) Description 07/13/2024 Refill [facility] 800 [place] [address] Bobby Vazquez MD [address] [address] Social History Tobacco Use Types [...] first t tianna in the morning (EYE-OVEN PRESS TENDER) to steady your nerves or to get rid of a hangover? 0 02/27/2023 CAGE Questionnaire Score 0 023 Utilities Answer Date Recorded In the past 12 months has e [employer], gas, oil, or water company threatened to [...] 9:30 AM EDT Office Visit [facility] Multidisciplinary Oncology Clinic [address] [place] [address] Sara Tesfaye APRN 800 [facility] [address] [address] 08/27/2024 1:00 PM EDT Office Visit [facility] Multidisciplinary Oncology Clinic 800 [place] [address] Bobby Vazquez MD 800 [facility] [address] [address] 08/27/2024 1:00 PM EDT Clinical Support [facility] Multidisciplinary Oncology Clinic 800 [place] [address] 08/27/2024 2:30 PM EDT Appointment [facility] Infusion [facility] 2 744 [place] [address] 09/17/2024 2:30 PM EDT Appointment [facility] 2 744 [place] [address] 10/08/2024 2:30 PM EDT Appointment [facility] 2 7[address] [place] [address] 10/19/2024 11:30 AM EDT Office Visit [facility] 800 [place] [address] Kym Romero R, SURGICAL ELASTIC KNITTER HAND FRAME 800 [facility] [address] [place] [address] 11/24/2024 11:00 AM EDT Office Visit [facility] Multidisciplinary Oncology Clinic 800 [place] [address] Adal Franklin MD [address] [place] [address] 12/15/2024 1:00 PM EDT Office Visit [facility] [address] [facility] [place] [address] Efren Fallon MD [address] [facility] S[address] [place] [address] 12/29/2024 9:30 AM EDT Clinical Support [facility] 800 [facility], [address]nd [place] [address] 12/29/2024 10:00 AM EDT Office Visit [facility] 800 [facility], [address]nd [place] [address] Carlito Mccartney MD [address] [facility] [address] [place] [address] 03/23/2025 10:40 AM EST Office Visit [facility] 800 [facility], [address]nd [place] [address] Arabella Romero APRN 800 [place] [address] documented as of this encounter Visit Diagnoses [...] as of this encounter Care Teams Steamer Blocker Relationship Specialty Start Date End Date Efren Roy DO [address] [place] [address] [id number] PCP - General 03/04/23 Efren Roy DO 439 [place] [address] Pain Medicine 01/03/23 Rosa Maria Beltran APRN 2195 [facility] 125 [place] [address] Nurse Practitioner Family Medicine 07/21/23 Bobby Vazquez MD 800 [facility] Shantel Kenneth [facility] Saurav [address] [place] [address] Consulting Physician Medical Oncology 09/17/23 Cally Henderson PA [address] [facility] [address] [place] [address] Physician Project Management Specialist Urology 09/17/23 documented as of this encounter
--- OUTSIDE RECORDS SUMMARY | 2024-08-19 12:05 | XMS_ITS | Encounter Summary ---
Author Organization [facility] Address [address] [place] [address] Care Team Providers Care Central Melt Specialist Name Role Phone Efren Roy DO Unavailable [phone] Efren Roy DO Primary Care Provider [phone] Rosa Maria Beltran APRN Unavailable [phone] Bobby Vazquez MD Unavailable Cally Henderson Unavailable [phone] Encounter Details Date Type Department Care Team [...] place to sleep or slept in a fdc (including now)? No 02/28/2023 PHQ-9 Answer Date [...] any time in the past 12 m [facility], were you homeless or living in a fdc (including now)? No 05/27/2024 CAGE ASSESSMENT Answer [...] drink first t tianna in the morning (EYE-MIX HOUSE TENDER) to steady your nerves or to [...] Description 08/20/2024 9:30 AM EDT Office Visit [facility] Multidisciplinary Oncology Clinic [address] [place] [address] Sara Tesfaye APRN [address] [address] 08/27/2024 1:00 PM EDT Office Visit [facility] Multidisciplinary Oncology Clinic [address] [place] [address] Bobby Vazquez MD [address] [address] 08/27/2024 1:00 PM EDT Clinical Support [facility] Multidisciplinary Oncology Clinic [address] [place] [address] 08/27/2024 2:30 PM EDT Appointment [facility] Infusion Clinic 2 [address] [place] [address] 09/17/2024 2:30 PM EDT Appointment [facility] Infusion Clinic 2 [address] [place] [address] 10/08/2024 2:30 PM EDT Appointment [facility] 2 [address] [place] [address] 10/19/2024 11:30 AM EDT Office Visit [facility] [address] [place] [address] Kym Romero, GROUND INSTRUCTOR BASIC 800 [facility] [address] [place] [address] 11/24/2024 11:00 AM EDT Office Visit [facility] [address] [place] [address] Adal Franklin MD [address] [facility] [address] [place] [address] 12/15/2024 1:00 PM EDT Office Visit [facility] [address] [facility] [place] [address] Efren Fallon MD [address] [facility] 550 [place] [address] 12/29/2024 9:30 AM EDT Clinical Support [facility] 800 [facility] 2nd [place] [address] 12/29/2024 10:00 AM EDT Office Visit [facility] 800 [facility] 2nd [place] [address] Carlito Mccartney MD 2195 [facility] 125 [place] [address] 03/23/2025 10:40 AM EST Office Visit [facility] [address] [address] Arabella Romero, GROUND INSTRUCTOR BASIC 800 [place] [address] documented as of this encounter Visit Diagnoses [...] documented as of this encounter Care Teams Central Melt Specialist Relationship Specialty Start Date End Date Efren Roy DO [address] [place] [address] PCP - General 03/04/23 Efren Roy DO [address] [place] [address] Pain Medicine 01/03/23 Rosa Maria Beltran APRN 2195 [facility] S[address] 125 [place] [address] Nurse Practitioner Family Medicine 07/21/23 Bobby Vazquez MD 800 [facility] Saur[address] [place] [address] Consulting Physician Medical Oncology 09/17/23 Cally Henderson PA 740 [address] [facility] [address] [place] [address] Physician Coal Or Ore Controller Urology 09/17/23 documented as of this encounter
--- OUTSIDE RECORDS SUMMARY | 2024-08-19 12:05 | XMS_ITS | Encounter Summary ---
Author Organization [facility] Address [address] [place] [address] Care Team Providers Care City Alderman Name Role Phone Efren Roy DO Unavailable [phone] Efren Roy DO Primary Care Provider [phone] Rosa Maria Beltran APRN Unavailable Bobby Vazquez MD Unavailable Cally Henderson Unavailable Encounter Details Date Type Department Care Team (Late st Contact Info) Description 03/19/2023 Lab Requisition [facility] H Lab [address] [place] [address] Ryan Hewitt MD 800 [place] [address] Malignant neoplasm of right ureter (CMS/HCC) Social [...] a care home (including now)? No 02/28/2023 CAGE ASSESSMENT Answer [...] drink first t tianna in the morning (EYE-SCROLL MACHINE OPERATOR) to steady your nerves or [...] [facility] Multidisciplinary Oncology Clinic [address] [place] [address] Sara Tesfaye, ADJUDICATION SPECIALIST 800 [facility] Shantel Cooper [facility] 134 [place] [address] 08/27/2024 1:00 PM EDT Office Visit [facility] [address] [place] [address] Bobby Vazquez MD 800 [facility] Kenneth [facility] 134 [place] [address] 08/27/2024 1:00 PM EDT Clinical Support [facility] Multidisciplinary Oncology Clinic [address] [place] [address] 08/27/2024 2:30 PM EDT Appointment [facility] Infusion [facility] 2 [address] [place] [address] 09/17/2024 2:30 PM EDT Appointment [facility] 2 [address] [place] [address] 10/08/2024 2:30 PM EDT Appointment [facility] Infusion Clinic 2 4 [place] [address] 10/19/2024 11:30 AM EDT Office Visit [facility] Multidisciplinary Oncology Clinic [address] [place] [address] Kym Romero, ADJUDICATION SPECIALIST 800 [facility] Shantel Cooper [facility] 134 [place] [address] 11/24/2024 11:00 AM EDT Office Visit [facility] Multidisciplinary Oncology Clinic [address] [place] [address] Adal Franklin MD [address] [facility] [address] [place] [address] 12/15/2024 1:00 PM EDT Office Visit [facility] [address] [place] [address] Efren Fallon MD [address] [place] [address] 12/29/2024 9:30 AM EDT Clinical Support [facility] 800 [facility], 2nd [place] [address] 12/29/2024 10:00 AM EDT Office Visit [facility] [address] [facility], 2nd [place] [address] Carlito Mccartney MD [facility] 125 [place] [address] 03/23/2025 10:40 AM EST Office Visit [facility] [address] [facility], [address]nd [place] [address] Arabella Romero, ADJUDICATION SPECIALIST 800 [place] [address] documented as of this encounter Procedures Procedure Name Priority Date/Time Associated Diagnosis Comments AP MISCELLANEOUS LAB TEST (SO) Routine 03/19/2023 12:00 AM EST Malignant neoplasm of right ureter (CMS/HCC) documented in this encounter Results * - AP Miscellaneous Test (03/19/2023 12:00 AM EST) Test name [place] Profile-Ca ris 04/07/2023 3:42 PM EST [facility] Comment:[id number] Test Result See Scan 04/07/2023 3:42 PM EST [facility] See Scanned Result 04/07/2023 3:42 PM EST [facility] Tissue 03/19/2023 03/19/2023 3:5 1 PM EST us Ryan Hewitt MD LAB REF LAB BLOOD AND FLUID O RD Final Result [facility] 800 [place] [address] documented in this encounter Visit Diagnoses Diagnosis [...] documented as of this encounter Care Teams City Alderman Relationship Specialty Start Date End Date Efren Roy DO [address] [place] [address] PCP - General 03/04/23 Efren Roy DO [address] [place] [address] Pain Medicine 01/03/23 Rosa Maria Beltran APRN [address] [place] [address] Nurse Practitioner Family Medicine 07/21/23 Bobby Vazquez MD 800 [facility] S[facility]av [address] [place] [address] Consulting Physician Medical Oncology 09/17/23 Cally Henderson PA [address] [place] [address] Physician Hat And Cap Opener Urology 09/17/23 documented as of this encounter
--- OUTSIDE RECORDS SUMMARY | 2024-08-19 12:05 | XMS_ITS | Encounter Summary ---
Author Organization [facility] Address [address] [place] [address] Care Team Providers Care Credit Processor Name Role Phone Kirill Efren Jaqueline HOWELL Unavailable [phone] Efren Roy DO Primary Care Provider Rosa Maria Beltran APRN Unavailable Bobby Vazquez MD Unavailable Cally Henderson Unavailable Encounter Details Date Type Department Care Team (Late st Contact Info) Description 07/15/2024 Orders Only [facility] Multidisciplinary Oncology Clinic 800 [place] [address] Bobby Vazquez MD [address] [address] Malignant tumor of right ureter [...] any time in the past 12 m [facility], were you homeless or living in [...] drink first t tianna in the morning (EYE-HISTOPATHOLOGY TECHNICIAN) to steady your nerves or to [...] 9:30 AM EDT Office Visit [facility] Multidisciplinary Oncology Clinic 800 [place] [address] Sara Tesfaye, FINANCIAL COORDINATOR [address] [address] 08/27/2024 1:00 PM EDT Office Visit [facility] Multidisciplinary Oncology Clinic [address] [place] [address] Bobby Vazquez MD [address] [address] 08/27/2024 1:00 PM EDT Clinical Support [facility] Multidisciplinary Oncology Clinic 800 [place] [address] 08/27/2024 2:30 PM EDT Appointment [facility] Infusion [facility] 2 [address] [place] [address] 09/17/2024 2:30 PM EDT Appointment [facility] 2 [address] [place] [address] 10/08/2024 2:30 PM EDT Appointment [facility] 2 [address] [place] [address] 10/19/2024 11:30 AM EDT Office Visit [facility] Multidisciplinary Oncology Clinic [address] [place] [address] Kym Romero, FINANCIAL COORDINATOR 800 [facility] Kenneth dg Saurav [address] [place] [address] 11/24/2024 11:00 AM EDT Office Visit [facility] Multidisciplinary Oncology Clinic 800 [place] [address] Adal Franklin MD [address] [facility] [address] [place] [address] 12/15/2024 1:00 PM EDT Office Visit [facility] [address] [facility] [place] [address] Efren Fallon MD [address] [facility] 550 [place] [address] 12/29/2024 9:30 AM EDT Clinical Support [facility] 800 [facility], 2nd [place] [address] 12/29/2024 10:00 AM EDT Office Visit [facility] 800 [facility], 2nd [place] [address] Carlito Mccartney MD 2195 [facility] [address] 125 [place] [address] 03/23/2025 10:40 AM EST Office Visit [facility] 800 [facility], 2nd [place] [address] Arabella Romero APRN 800 [place] [address] Scheduled Orders Name Type Priority Associated Diagnoses [...] documented as of this encounter Care Teams Credit Processor Relationship Specialty Start Date End Date Efren Roy DO [address] [place], [place] [address] PCP - General 03/04/23 Efren Roy DO [address] [place] [address] Pain Medicine 01/03/23 Rosa Maria Beltran APRN [address] [place] [address] Nurse Practitioner Family Medicine 07/21/23 Bobby Vazquez MD 800 [facility] Sh[address] S[address] [place] [address] Consulting Physician Medical Oncology 09/17/23 Cally Henderson PA [address] [address] Physician Cylinder Worker Urology 09/17/23 documented as of this encounter
--- OUTSIDE RECORDS SUMMARY | 2024-08-19 12:05 | XMS_ITS | Encounter Summary ---
Author Organization [facility] Address [address] [place] [address] Care Team Providers Care Advanced Manager Name Role Phone Efren Roy DO Unavailable [phone] Efren Roy DO Primary Care Provider [phone] Rosa Maria Beltran APRN Unavailable [phone] Bobby Vazquez MD Unavailable Cally Henderson Unavailable [phone] Encounter Details Date Type Department Care Team (Late st Contact Info) Description 05/31/2024 Refill [facility] 800 [place] [address] Bobby Vazquez MD [address] [address] Social History Tobacco Use Types [...] drink first t tianna in the morning (EYE-ANTIQUE JEWELRY REPAIRER) to steady your nerves or to get rid of a hangover? 0 02/27/2023 CAGE Questionnaire Score 0 023 Utilities Answer Date Recorded In the past 12 months has th [employer], gas, oil, or water [employer] threatened to shut off services in your [...] of the initial request. Best contact number: [phone] Optimal time of day to reach caller: [...] will receive notification of the communication/outcome via Minglyt. * Telephone Encounter - Zaria Randall - 05/31/2024 10:32 AM EDT Patient Phone Message Reason for Call: Mr. Goode was recently discharged and was told to come in sooner than scheduledappointment for labs. They are not sure if any orders are in place. Best contact number and optimal time of day to reach caller: [phone] Note: Please do not reply to this [...] 9:30 AM EDT Office Visit [facility] Multidisciplinary Oncology Clinic 800 [place] [address] Sara Tesfaye APRN [address] [address] 08/27/2024 1:00 PM EDT Office Visit [facility] Multidisciplinary Oncology Clinic 800 [place] [address] Bobby Vazquez MD 800 [facility] [address] [address] 08/27/2024 1:00 PM EDT Clinical Support [facility] Multidisciplinary Oncology Clinic 800 [place] [address] 08/27/2024 2:30 PM EDT Appointment [facility] Infusion Clinic 2 [address] [place] [address] 09/17/2024 2:30 PM EDT Appointment [facility] Infusion Clinic 2 [address] [place] [address] 10/08/2024 2:30 PM EDT Appointment [facility] Infusion Clinic 2 [address] [place] [address] 10/19/2024 11:30 AM EDT Office Visit [facility] 800 [place] [address] Kym Romero, CROP PULLER 800 [facility] Shantel Kenneth [address] [place] [address] 11/24/2024 11:00 AM EDT Office Visit [facility] 800 [place] [address] Adal Franklin MD [address] [place] [address] 12/15/2024 1:00 PM EDT Office Visit [facility] 110 [facility] [place] [address] Efren Fallon MD 110 [facility] 550 [place] [address] 12/29/2024 9:30 AM EDT Clinical Support [facility] 800 [facility], 2nd [place] [address] 12/29/2024 10:00 AM EDT Office Visit [facility] 800 [facility], 2nd [place] [address] Carlito Mccartney MD 2195 [facility] 125 [place] [address] 03/23/2025 10:40 AM EST Office Visit [facility] 800 [facility], [address]nd [place] [address] Arabella Romero, CROP PULLER 800 [place] [address] documented as of this encounter Visit Diagnoses [...] documented as of this encounter Care Teams Advanced Manager Relationship Specialty Start Date End Date Efren Roy DO [address] [place], [place] [phone] PCP - General 03/04/23 Efren Roy DO [address] [place], [place] [phone] Pain Medicine 01/03/23 Rosa Maria Beltran APRN 2195 [facility] S[address] 125 [place] [address] Nurse Practitioner Family Medicine 07/21/23 Bobby Vazquez MD 800 [facility] [address] [place] [address] Consulting Physician Medical Oncology 09/17/23 Cally Henderson PA [address] [place] [address] Physician Phlebotomy Specialist Urology 09/17/23 documented as of this encounter
--- OUTSIDE RECORDS SUMMARY | 2024-08-19 12:06 | XMS_ITS | Encounter Summary ---
Author Organization [facility] Address [address] [place] [address] Care Team Providers Care Tube Former Operator Name Role Phone Efren Roy DO Unavailable [phone] Efren Roy DO Primary Care Provider [phone] Rosa Maria Beltran APRN Unavailable [phone] Bobby Vazquez MD Unavailable Cally Henderson Unavailable [phone] Encounter Details Date Type Department Care Team [...] any time in the past 12 m [facility], were you homeless or living [...] drink first t tianna in the morning (EYE-PHOTOENGRAVING PROOFER) to steady your nerves or to get [...] 1 Month) No 025 10:43 AM EDT Makyala Burden, RN 2. Non-Specific Active Suici katie Thoughts (Past 1 Month) No 07/28/2024 10:43 AM EDT Miguel Burden, RN 6. Suicidal Behavior (Lifetime) No 10:43 AM EDT Makayla Burden, RN documented as of this encounter Plan of Treatment Upcoming Encounters Date Type Department Care Team (Late st Contact Info) Description 08/20/2024 9:30 AM EDT Office Visit [facility] Multidisciplinary Oncology Clinic [address] [place] [address] Sara Tesfaye APRN 800 [facility] Kenneth [address] [address] 08/27/2024 1:00 PM EDT Office Visit [facility] Multidisciplinary Oncology Clinic [address] [place] [address] Bobby Vazquez MD 800 [facility] [address] [phone] 08/27/2024 1:00 PM EDT Clinical Support [facility] [address] [place] [address] 08/27/2024 2:30 PM EDT Appointment [facility] 2 [address] [place] [address] 09/17/2024 2:30 PM EDT Appointment [facility] 2 [address] [place] [address] 10/08/2024 2:30 PM EDT Appointment [facility] 2 [address] [place] [address] 10/19/2024 11:30 AM EDT Office Visit [facility] Multidisciplinary Oncology Clinic [address] [place] [address] Kym Romero, HVAC TECHNICIAN RESIDENTIAL 800 [facility] Shanetl Cooper [facility] 134 [place] [address] 11/24/2024 11:00 AM EDT Office Visit [facility] Multidisciplinary Oncology Clinic [address] [place] [address] Adal Franklin MD [address] [facility] [address] [place] [address] 12/15/2024 1:00 PM EDT Office Visit [facility] [address] [place] [address] Efren Fallon MD 110 [facility] 550 [place] [address] 12/29/2024 9:30 AM EDT Clinical Support [facility] 800 [facility], 2nd [place] [address] 12/29/2024 10:00 AM EDT Office Visit [facility] 800 [facility], 2nd [place] [address] Carlito Mccartney MD [address] [facility] Saurav [address] [place] [address] 03/23/2025 10:40 AM EST Office Visit [facility] 800 [facility], 2nd [place] [address] Arabella Romero, HVAC TECHNICIAN RESIDENTIAL [address] [place] [address] documented as of this encounter [...] documented as of this encounter Care Teams Tube Former Operator Relationship Specialty Start Date End Date Efren Roy DO [address] [place] [address] PCP - General 03/04/23 Efren Roy DO [address] [place] [address] Pain Medicine 01/03/23 Rosa Maria Beltran APRN 219 [facility] 125 [place] [address] Nurse Practitioner Family Medicine 07/21/23 Bobby Vazquez MD 800 [facility] Shantel Cooper [facility] Saurav [address] [place] [address] Consulting Physician Medical Oncology 09/17/23 Cally Henderson PA [address] [facility] [address] [place] [address] Physician Vocational Psychologist Urology 09/17/23 documented as of this encounter
--- OUTSIDE RECORDS SUMMARY | 2024-08-19 12:06 | XMS_ITS | Encounter Summary ---
Author Organization [facility] Address [address] [place] [address] Care Team Providers Care Mandrel Press Hand Name Role Phone Efren Roy DO Unavailable [phone] Efren Roy DO Primary Care Provider [phone] Rosa Maria Beltran APRN Unavailable [phone] Bobby Vazquez MD Unavailable Cally Henderson Unavailable [phone] Encounter Details Date Type Department Care Team [...] drink first t tianna in the morning (EYE-RETAINING ROOM CUTTER) to steady your nerves or to get [...] 9:30 AM EDT Office Visit [facility] Multidisciplinary Oncology Clinic [address] [place] [address] Sara Tesfaye APRN [address] [address] 08/27/2024 1:00 PM EDT Office Visit [facility] Multidisciplinary Oncology Clinic [address] [place] [address] Bobby Vazquez MD [address] [address] 08/27/2024 1:00 PM EDT Clinical Support [facility] Multidisciplinary Oncology Clinic [address] [place] [address] 08/27/2024 2:30 PM EDT Appointment [facility] Infusion Clinic 2 [address] [place] [address] 09/17/2024 2:30 PM EDT Appointment [facility] Infusion Clinic 2 [address] [place] [address] 10/08/2024 2:30 PM EDT Appointment [facility] 2 [address] [place] [address] 10/19/2024 11:30 AM EDT Office Visit [facility] [address] [place] [address] Kym Romero, ENVIRONMENTAL PROGRAMS SPECIALIST 800 [facility] Shantel [address] S[address] [place] [address] 11/24/2024 11:00 AM EDT Office Visit [facility] [address] [place] [address] Adal Franklin MD [address] [facility] [address] [place] [address] 12/15/2024 1:00 PM EDT Office Visit [facility] [address] [place] [address] Efren Fallon MD [address] [facility] [address] [place] [address] 12/29/2024 9:30 AM EDT Clinical Support [facility] 800 [facility] 2nd [place] [address] 12/29/2024 10:00 AM EDT Office Visit [facility] 800 [facility] 2nd [place] [address] Carlito Mccartney MD 2195 [facility] 125 [place] [address] 03/23/2025 10:40 AM EST Office Visit [facility] [address] [address] Arabella Romero, ENVIRONMENTAL PROGRAMS SPECIALIST 800 [place] [address] documented as of this encounter Visit Diagnoses [...] documented as of this encounter Care Teams Mandrel Press Hand Relationship Specialty Start Date End Date Efren Roy DO [address] [place] [address] PCP - General 03/04/23 Efren Roy DO [address] [place] [address] Pain Medicine 01/03/23 Rosa Maria Beltran APRN 2195 [facility] Saur[address] [place] [address] Nurse Practitioner Family Medicine 07/21/23 Bobby Vazquez MD 800 [facility] Saurav [address] [place] [address] Consulting Physician Medical Oncology 09/17/23 Cally Henderson PA 740 [facility] [address] [place] [address] Physician Traveling Construction Superintendent Urology 09/17/23 documented as of this encounter
--- OUTSIDE RECORDS SUMMARY | 2024-08-19 12:06 | XMS_ITS | Encounter Summary ---
Author Organization [facility] Address [address] [place] [address] Care Team Providers Care Customer Orders Clerk Name Role Phone Efren Roy DO Unavailable [phone] Efren Roy DO Primary Care Provider Rosa Maria Beltran APRN Unavailable [phone] Bobby Vazquez MD Unavailable Cally Henderson Unavailable Encounter Details Date Type Department Care Team (Late st Contact Info) Description 08/02/2024 Results Follow-Up [facility] [address] , 2nd [place] [address] Carlito Mccartney MD 0066 [facility] Saurav [address] [place] [address] Social History Tobacco Use Types [...] drink first t tianna in the morning (EYE-CHILDREN'S LUNCHROOM SUPERVISOR) to steady your nerves or to get rid of a hangover? 0 02/27/2023 CAGE Questionnaire Score 0 023 Utilities Answer Date Recorded In the past 12 months has e [employer], gas, oil, or water company threatened to [...] 9:30 AM EDT Office Visit [facility] Multidisciplinary Oncology Clinic [address] [place] [address] Sara Tesfaye APRN 800 [facility] [address] [address] 08/27/2024 1:00 PM EDT Office Visit [facility] Multidisciplinary Oncology Clinic [address] [place] [address] Bobby Vazquez MD 800 [facility] [address] [address] 08/27/2024 1:00 PM EDT Clinical Support [facility] Multidisciplinary Oncology Clinic [address] [place] [address] 08/27/2024 2:30 PM EDT Appointment [facility] 2 [address] [place] [address] 09/17/2024 2:30 PM EDT Appointment [facility] 2 [address] [place] [address] 10/08/2024 2:30 PM EDT Appointment [facility] 2 [address] [place] [address] 10/19/2024 11:30 AM EDT Office Visit [facility] Multidisciplinary Oncology Clinic [address] [place] [address] Kym Romero, GLASS TECHNICIAN/INSTALLER 800 [facility] Shant[address] Saurav [address] [place] [address] 11/24/2024 11:00 AM EDT Office Visit [facility] Multidisciplinary Oncology Clinic [address] [place] [address] Adal Franklin MD [address] [place] [address] 12/15/2024 1:00 PM EDT Office Visit [facility] [address] [facility] [place] [address] Efren Fallon MD [address] [facility] Saurav [address] [place] [address] 12/29/2024 9:30 AM EDT Clinical Support [facility] 800 [facility], 2nd [place] [address] 12/29/2024 10:00 AM EDT Office Visit [facility] 800 [facility], 2nd [place] [address] Carlito Mccartney MD 2195 [facility] Saurav [address] [place] [address] 03/23/2025 10:40 AM EST Office Visit [facility] 800 [facility], 2nd [place] [address] Arabella Romero, GLASS TECHNICIAN/INSTALLER 800 [place] [address] documented as of this encounter Visit Diagnoses [...] documented as of this encounter Care Teams Customer Orders Clerk Relationship Specialty Start Date End Date Efren Roy DO [address] [place] [address] PCP - General 03/04/23 Efren Roy DO [address] [place] [address] Pain Medicine 01/03/23 Rosa Maria Beltran, JYOTSNA 2195 [facility] Saurav [address] [place] [address] Nurse Practitioner Family Medicine 07/21/23 Bobby Vazquez MD 800 [facility] Shant[address] Saurav [address] [place] [address] Consulting Physician Medical Oncology 09/17/23 Calyl Henderson PA [address] [place] [address] Physician Retirement Specialist Urology 09/17/23 documented as of this encounter
--- OUTSIDE RECORDS SUMMARY | 2024-08-19 12:06 | XMS_ITS | Encounter Summary ---
Author Organization [facility] Address [address] [place] [address] Care Team Providers Care Product Picker Name Role Phone Efren Roy DO Unavailable [phone] Efren Roy DO Primary Care Provider [phone] Rosa Maria Beltran APRN Unavailable [phone] Bobby Vazquez MD Unavailable Cally Henderson Unavailable [phone] Encounter Details Date Type Department Care Team [...] 0 07/14/2024 Housing Stability Vital Sign Answer Pei e Recorded In the last 12 months, was t here a time when you were not able to pay the mortgage or rent on time? No 05/27/2024 In the past 12 months, how m any times have you moved where you were living? 0 05/27/2024 At any time in the past 12 m [facility], were you homeless or [...] drink first t tianna in the morning (EYE-LENS POLISHER) to steady your nerves or to get rid of a hangover? 0 02/27/2023 CAGE Questionnaire Score 0 023 Utilities Answer Date Recorded In the past 12 months has [employer], gas, oil, or water company threatened [...] Description 08/20/2024 9:30 AM EDT Office Visit [facility] Multidisciplinary Oncology Clinic [address] [place] [address] Sara Tesfaye, MOTOR COACH BUS DRIVER 800 [facility] [address] [address] 08/27/2024 1:00 PM EDT Office Visit [facility] Multidisciplinary Oncology Clinic [address] [place] [address] Bobby Vazquez MD 800 [facility] Shantel Cooper [facility] Saurav [address] [place] [address] 08/27/2024 1:00 PM EDT Clinical Support [facility] Oncology Clinic [address] [place] [address] 08/27/2024 2:30 PM EDT Appointment [facility] 2 [address] [place] [address] 09/17/2024 2:30 PM EDT Appointment [facility] 2 [address] [place] [address] 10/08/2024 2:30 PM EDT Appointment [facility] 2 [address] [place] [address] 10/19/2024 11:30 AM EDT Office Visit [facility] Multidisciplinary Oncology Clinic [address] [place] [address] Kym Romero, MOTOR COACH BUS DRIVER 800 [facility] Kenneth [facility] Saurav [address] [place] [address] 11/24/2024 11:00 AM EDT Office Visit [facility] Multidisciplinary Oncology Clinic [address] [place] [address] Adal Franklin MD [address] [place] [address] 12/15/2024 1:00 PM EDT Office Visit [facility] 110 [place] [address] Efren Fallon MD 110 [facility] 550 [place] [address] 12/29/2024 9:30 AM EDT Clinical Support [facility] 800 [facility], 2nd [place] [address] 12/29/2024 10:00 AM EDT Office Visit [facility] 800 [facility], 2nd [place] [address] Carlito Mccartney MD 5 [facility] 125 [place] [address] 03/23/2025 10:40 AM EST Office Visit [facility] 800 [facility], 2nd [place] [address] Arabella Romero, MOTOR COACH BUS DRIVER [address] [place] [address] documented as of this [...] documented as of this encounter Care Teams Product Picker Relationship Specialty Start Date End Date Efren Roy DO [address] [place] [address] PCP - General 03/04/23 Efren Roy DO [address] [place] [address] Pain Medicine 01/03/23 Rosa Maria Beltran APRN 2194 [facility] 125 [place] [address] Nurse Practitioner Family Medicine 07/21/23 Bobby Vazquez MD 800 [facility] Shantel Cooper [facility] Saurav [address] [place] [address] Consulting Physician Medical Oncology 09/17/23 Cally Henderson PA [address] [address] Physician Fitness Coach Urology 09/17/23 documented as of this encounter
--- OUTSIDE RECORDS SUMMARY | 2024-08-19 12:06 | XMS_ITS | Encounter Summary ---
Author Organization [facility] Address [address] [place] [address] Care Team Providers Care Incident Handler Name Role Phone Kirill Efren Parsons Unavailable [phone] Efren Roy DO Primary Care Provider [phone] Rosa Maria Beltran APRN Unavailable Bobby Vazquez MD Unavailable Cally Henderson Unavailable Reason for Visit * Reason Onset Date Comments Med Refill 07/29/2024 Encounter Details Date Type Department Care Team (Late st Contact Info) Description 07/29/2024 Refill [facility] 800 [place] [address] Bobby Vazquez MD [address] [address] Social History Tobacco Use Types Packs/Day Years [...] any time in the past 12 m [facility], were you homeless or [...] drink first t tianna in the morning (EYE-FARM ADVISOR) to steady your nerves or to get [...] Description 08/20/2024 9:30 AM EDT Office Visit [facility] Multidisciplinary Oncology Clinic [address] [place] [address] Sara Tesfaye, COSTUME CUTTER [address] [address] 08/27/2024 1:00 PM EDT Office Visit [facility] Multidisciplinary Oncology Clinic [address] [place] [address] Bobby Vazquez MD 800 [facility] [address] [address] 08/27/2024 1:00 PM EDT Clinical Support [facility] Multidisciplinary Oncology Clinic 800 [place] [address] 08/27/2024 2:30 PM EDT Appointment [facility] Infusion Clinic 2 [address] [place] [address] 09/17/2024 2:30 PM EDT Appointment [facility] 2 [address] [place] [address] 10/08/2024 2:30 PM EDT Appointment [facility] 2 [address] [place] [address] 10/19/2024 11:30 AM EDT Office Visit [facility] Multidisciplinary Oncology Clinic [address] [place] [address] Kym Romero, COSTUME CUTTER 800 [facility] [address] Saurav [address] [place] [address] 11/24/2024 11:00 AM EDT Office Visit [facility] Multidisciplinary Oncology Clinic [address] [place] [address] Adal Franklin MD [address] [place] [address] 12/15/2024 1:00 PM EDT Office Visit [facility] [address] [facility] [place] [address] Efren Fallon MD [address] [facility] Saurav [address] [place] [address] 12/29/2024 9:30 AM EDT Clinical Support [facility] Res[facility] 800 [facility], 2nd [place] [address] 12/29/2024 10:00 AM EDT Office Visit [facility] Res[facility] 800 [facility], 2nd [place] [address] Carlito Mccartney MD 2195 [facility] S[address] [place] [address] 03/23/2025 10:40 AM EST Office Visit [facility] Res[facility] 800 [facility], 2nd [place] [address] Arabella Romero, COSTUME CUTTER 800 [place] [address] documented as of this encounter Visit Diagnoses [...] documented as of this encounter Care Teams Incident Handler Relationship Specialty Start Date End Date Efren Roy DO [address] [place], [place] [id number] PCP - General 03/04/23 Efren Roy DO [address] [place], [place] [phone] Pain Medicine 01/03/23 Rosa Maria Beltran APRN 2195 [facility] [address] [place] [address] Nurse Practitioner Family Medicine 07/21/23 Bobby Vazquez MD 800 [facility] Shantel [address] Saurav [address] [place] [address] Consulting Physician Medical Oncology 09/17/23 Cally Henderson PA [address] [place] [address] Physician Car Wash Attendant Urology 09/17/23 documented as of this encounter
--- OUTSIDE RECORDS SUMMARY | 2024-08-19 12:06 | XMS_ITS | Encounter Summary ---
Author Organization [facility] Address [address] 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) Bobby Vazquez MD 800 [facility] Shantel Cooper [address] [address] Phone: tel: fax: [facility] Hematology/BMT and Cellular Therapy Program [address] [place] [address] Phone: tel: fax: Referral ID Status Reason Start Date Expiration Date Visits Requested Visits Authorized [id number] Authorized Consult and Treat 08/10/2024 02/09/2026 1 1 Encounter Details Date Type Department Care Team (Late st Contact Info) Description 08/10/2024 Telephone [facility] 800 [place] [address] Bobby Vazquez MD [address] [place] [address] Social History Tobacco Use Types [...] place to sleep or slept in a correction (including now)? No 02/28/2023 PHQ-9 Answer Date [...] any time in the [facility], were you [facility] or living in a correction (including now)? No 05/27/2024 CAGE ASSESSMENT Answer [...] drink first t tianna in the morning (EYE-PRE SALES ARCHITECT) to steady your nerves or to get [...] optimal time of day to reach caller: [phone] Note: Please do not reply to this message. Follow-up communication and further actions as a result of this message need to be communicated with the patient directly, if the patient is not active onMyChart. If the patient is active on MyChart, they will receive notification of the communication/outcome via [email or web address]. documented in this encounter Plan of Treatment Upcoming Encounters Date Type Department Care Team (Late st Contact Info) Description 08/20/2024 9:30 AM EDT Office Visit [facility] Multidisciplinary Oncology Clinic 800 [place] [address] Sara Tesfaye, JYOTSNA 800 [facility] [address] [address] 08/27/2024 1:00 PM EDT Office Visit [facility] Mult[facility] Oncology Clinic 800 [place] [address] Bobby Vazquez MD [address] [facility] [address] [address] 08/27/2024 1:00 PM EDT Clinical Support [facility] Multidisciplinary Oncology Clinic [address] [place] [address] 08/27/2024 2:30 PM EDT Appointment [facility] Infusion Clinic 2 [address] [place] [address] 09/17/2024 2:30 PM EDT Appointment [facility] 2 7[address] [place] [address] 10/08/2024 2:30 PM EDT Appointment [facility] 2 7[address] [place] [address] 10/19/2024 11:30 AM EDT Office Visit [facility] Multidisciplinary Oncology Clinic [address] [place] [address] Kym Romero, GRADER PATROL 800 [facility] [address] [place] [address] 11/24/2024 11:00 AM EDT Office Visit [facility] Multidisciplinary Oncology Clinic [address] [place] [address] Adal Franklin MD [address] [place] [address] 12/15/2024 1:00 PM EDT Office Visit [facility] [address] [facility] [place] [place] [address] Efren Fallon MD 110 [facility] [address] [place] [address] 12/29/2024 9:30 AM EDT Clinical Support [facility] 800 [facility], 2nd [place] [address] 12/29/2024 10:00 AM EDT Office Visit [facility] 800 [facility], 2nd [place] [address] Carlito Mccartney MD 2[address] [facility] [address] [place] [address] 03/23/2025 10:40 AM EST Office Visit [facility] 800 [facility], 2nd [place] [address] Arabella Romero APRN 800 [place] [address] Scheduled Referrals Name Type Priority Associated Diagnoses [...] documented as of this encounter Care Teams Agriculture Extension Specialist Relationship Specialty Start Date End Date Efren Roy DO [address] [place] [address] PCP - General 03/04/23 Efren Roy DO [address] [place] [address] Pain Medicine 01/03/23 Rosa Maria Beltran APRN [address] [facility] 125 [place] [address] Nurse Practitioner Family Medicine 07/21/23 Bobby Vazquez MD 800 [facility] Shantel Cooper [facility] [address] [place] [address] Consulting Physician Medical Oncology 09/17/23 Cally Henderson PA [address] [facility] [address] [place] [address] Physician Exchange Floor Manager Urology 09/17/23 documented as of this encounter
--- OUTSIDE RECORDS SUMMARY | 2024-08-19 12:06 | XMS_ITS | Encounter Summary ---
Author Organization [facility] Address [address] [place] [address] Care Team Providers Care X Ray Developer Name Role Phone Efren Roy DO Unavailable [phone] Efren Roy DO Primary Care Provider [phone] Rosa Maria Beltran APRN Unavailable [phone] Bobby Vazquez MD Unavailable Cally Henderson Unavailable [phone] Encounter Details Date Type Department Care Team [...] drink first t tianna in the morning (EYE-TOW MOTOR MECHANIC) to steady your nerves or to [...] Description 08/20/2024 9:30 AM EDT Office Visit [facility] Multidisciplinary Oncology Clinic 800 [place] [address] Sara Tesfaye APRN 800 [facility] 134 [place] [address] 08/27/2024 1:00 PM EDT Office Visit [facility] Multidisciplinary Oncology Clinic [address] [place] [address] Bobby Vazquez MD 800 [facility] Shantel Cooper [facility] 134 [place] [address] 08/27/2024 1:00 PM EDT Clinical Support [facility] [address] [place] [address] 08/27/2024 2:30 PM EDT Appointment [facility] 2 [address] [place] [address] 09/17/2024 2:30 PM EDT Appointment [facility] 2 [address] [place] [address] 10/08/2024 2:30 PM EDT Appointment [facility] 2 [address] [place] [address] 10/19/2024 11:30 AM EDT Office Visit [facility] Multidisciplinary Oncology Clinic [address] [place] [address] Kym Romero, HOTEL OR MOTEL ROOM SERVICE SUPERVISOR 800 [facility] [address] [place] [address] 11/24/2024 11:00 AM EDT Office Visit [facility] Multidisciplinary Oncology Clinic [address] [place] [address] Adal Franklin MD [address] [place] [address] 12/15/2024 1:00 PM EDT Office Visit [facility] 110 [place] [address] Efren Fallon MD 110 [facility] 550 [place] [address] 12/29/2024 9:30 AM EDT Clinical Support [facility] 800 [facility], 2nd [place] [address] 12/29/2024 10:00 AM EDT Office Visit [facility] [address] [place] [address] Carlito Mccartney MD 2194 [facility] [address] [place] [address] 03/23/2025 10:40 AM EST Office Visit [facility] 800 [facility], 2nd [place] [address] Arabella Romero, HOTEL OR MOTEL ROOM SERVICE SUPERVISOR [address] [place] [address] documented as of this encounter Visit Diagnoses [...] documented as of this encounter Care Teams X Ray Developer Relationship Specialty Start Date End Date Efren Roy DO [address] [place] [address] PCP - General 03/04/23 Efren Roy DO [address] [place] [address] Pain Medicine 01/03/23 Rosa Maria Beltran APRN [address] [place] [address] Nurse Practitioner Family Medicine 07/21/23 Bobby Vazquez MD 800 [facility] Sh[address] [place] [address] Consulting Physician Medical Oncology 09/17/23 Cally Henderson PA [address] [facility] [address] [place] [address] Physician Registered Nurses Urology 09/17/23 documented as of this encounter
--- OUTSIDE RECORDS SUMMARY | 2024-08-19 12:06 | XMS_ITS | Encounter Summary ---
Author Organization [facility] Address [address] [place] [address] Care Team Providers Care Enrollment Representative Name Role Phone Efren Roy DO Unavailable [phone] Efren Roy DO Primary Care Provider [phone] Rosa Maria Beltran APRN Unavailable Bobby Vazquez MD Unavailable Cally Henderson Unavailable [phone] Encounter Details Date Type Department Care Team (Late st Contact Info) Description 07/27/2024 Telephone [facility] 800 [place] [address] Bobby Vazquez MD [address] [address] Social History Tobacco Use Types [...] any time in the past 12 m [facility], were you homeless or living [...] first t tianna in the morning (EYE-SUPERVISOR MONEY ROOM) to steady your nerves or to get rid of a hangover? 0 02/27/2023 CAGE Questionnaire Score 0 023 Utilities Answer Date Recorded In the past 12 months has th e [employer], gas, oil, or water company threatened to [...] constipation. * Telephone Encounter - Alma Longoria Sergo - 07/27/2024 2:21 PM EDT Patient Phone Message Reason for Call: Pt sisters calling about him being constipated for about 5 days now. Can you call in anything? Best contact number and optimal time of day to reach caller: [phone] Note: Please do not reply to this message. Follow-up communication and further actions as a result of this message need to be communicated with the patient directly, if the patient is not active onMyChart. If the patient is active on MyChart, they will receive notification of the communication/outcome via [employer]. documented in this encounter Plan of Treatment Upcoming Encounters Date Type Department Care Team (Late st Contact Info) Description 08/20/2024 9:30 AM EDT Office Visit [facility] Multidisciplinary Oncology Clinic [address] [place] [address] Sara Tesfaye APRN [address] [address] 08/27/2024 1:00 PM EDT Office Visit [facility] Multidisciplinary Oncology Clinic [address] [place] [address] Bobby Vazquez MD [address] [address] 08/27/2024 1:00 PM EDT Clinical Support [facility] Multidisciplinary Oncology Clinic [address] [place] [address] 08/27/2024 2:30 PM EDT Appointment [facility] Infusion Clinic 2 [address] [place] [address] 09/17/2024 2:30 PM EDT Appointment [facility] Infusion Clinic 2 [address] [place] [address] 10/08/2024 2:30 PM EDT Appointment [facility] 2 [address] [place] [address] 10/19/2024 11:30 AM EDT Office Visit [facility] [address] [place] [address] Kym Romero, BUNG REMOVER 800 [facility] [address] [place] [address] 11/24/2024 11:00 AM EDT Office Visit [facility] [address] [place] [address] Adal Franklin MD [address] [place] [address] 12/15/2024 1:00 PM EDT Office Visit [facility] Advanced [facility] [address] [facility] [place] [address] Efren Fallon MD [address] [facility] 550 [place] [address] 12/29/2024 9:30 AM EDT Clinical Support [facility] 800 [facility] 2nd [place] [address] 12/29/2024 10:00 AM EDT Office Visit [facility] [address] [address] Carlito Mccartney MD 2195 [facility] 125 [place] [address] 03/23/2025 10:40 AM EST Office Visit [facility] [address] [address] Arabella Romero, BUNG REMOVER [address] [place] [address] documented as of this encounter [...] Date End Date Efren Roy DO [address] [place] [address] PCP - General 03/04/23 Efren Roy DO [address] [place], [place] [address] Pain Medicine 01/03/23 Rosa Maria Beltran APRN [address] [place] [address] [address] [place] [address] Nurse Practitioner Family Medicine 07/21/23 Bobby Vazquez MD 800 [facility] [address] [place] [address] Consulting Physician Medical Oncology 09/17/23 Cally Henderson PA [address] [place] [address] Physician Oxidation Operator Urology 09/17/23 documented as of this encounter
--- OUTSIDE RECORDS SUMMARY | 2024-08-19 12:06 | XMS_ITS | Encounter Summary ---
Author Organization [facility] Address [address] [address] Care Team Providers Care Scrap Bunch Maker Name Role Phone Efren Roy DO Unavailable [phone] Efren Roy DO Primary Care Provider [phone] Rosa Maria Beltran APRN Unavailable Bobby Vazquez MD Unavailable Cally Henderson Unavailable [phone] Encounter Details Date Type Department Care Team (Late st Contact Info) Description 07/27/2024 Orders Only [facility] 800 [place] [address] Bobby Vazquez MD [address] [address] Social History Tobacco Use Types [...] time in the past 12 m [facility], were you homeless or living in [...] drink first t tianna in the morning (EYE-ACADEMIC SUPPORT SPECIALIST) to steady your nerves or to get rid of a hangover? 0 02/27/2023 CAGE Questionnaire Score 0 023 Utilities Answer Date Recorded In the past 12 months has e [employer], gas, oil, or water company threatened to [...] 08/20/2024 9:30 AM EDT Office Visit [facility] Multidisciplinary Oncology Clinic [address] [place] [address] Sara Tesfaye APRN 800 [facility] [address] [address] 08/27/2024 1:00 PM EDT Office Visit [facility] Multidisciplinary Oncology Clinic 800 [place] [address] Bobby Vazquez MD 800 [facility] [address] [address] 08/27/2024 1:00 PM EDT Clinical Support [facility] Multidisciplinary Oncology Clinic 800 [place] [address] 08/27/2024 2:30 PM EDT Appointment [facility] 2 [address] [place] [address] 09/17/2024 2:30 PM EDT Appointment [facility] 2 [address] [place] [address] 10/08/2024 2:30 PM EDT Appointment [facility] 2 [address] [place] [address] 10/19/2024 11:30 AM EDT Office Visit [facility] [address] [place] [address] Kym Romero R, NUTRITION TECHNICIAN 800 [facility] [address] [place] [address] 11/24/2024 11:00 AM EDT Office Visit [facility] Multidisciplinary Oncology Clinic [address] [place] [address] Adal Franklin MD [address] [place] [address] 12/15/2024 1:00 PM EDT Office Visit [facility] [address] [facility] [place] [address] Efren Fallon MD [address] [facility] [address] [place] [address] 12/29/2024 9:30 AM EDT Clinical Support [facility] 800 [facility], 2nd [place] [address] 12/29/2024 10:00 AM EDT Office Visit [facility] 800 [facility], 2nd [place] [address] Carlito Mccartney MD 2195 [facility] [address] [place] [address] 03/23/2025 10:40 AM EST Office Visit [facility] 800 [facility], 2nd [place] [address] Arabella Romero, JYOTSNA 800 [place] [address] documented as of this encounter [...] documented as of this encounter Care Teams Scrap Bunch Maker Relationship Specialty Start Date End Date Efren Roy DO 439 [place] [address] PCP - General 03/04/23 Efren Roy DO 439 [place] [address] Pain Medicine 01/03/23 Rosa Maria Beltran APRN 2195 [facility] 125 [place] [address] Nurse Practitioner Family Medicine 07/21/23 Bobby Vazquez MD 800 [facility] Shantel Cooper [facility] [address] [place] [address] Consulting Physician Medical Oncology 09/17/23 Cally Henderson PA [address] [facility] [address] [place] [address] Physician Pinking Sewing Machine Operator Urology 09/17/23 documented as of this encounter
--- OUTSIDE RECORDS SUMMARY | 2024-08-19 12:06 | XMS_ITS | Encounter Summary ---
Author Organization [facility] Address [address] [place] [address] Care Team Providers Care Power Bender Operator Name Role Phone Efren Roy DO Unavailable [phone] Efren Roy DO Primary Care Provider [phone] Rosa Maria Beltran APRN Unavailable [phone] Bobby Vazquez MD Unavailable Cally Henderson Unavailable [phone] Encounter Details Date Type Department Care Team [...] any time in the past 12 m [facility], were you homeless or living in [...] drink first t tianna in the morning (EYE-CLINICAL LABORATORY DIRECTOR) to steady your nerves or to [...] Description 08/20/2024 9:30 AM EDT Office Visit [facility] Multidisciplinary Oncology Clinic 800 [place] [address] Sara Tesfaye APRN 800 [facility] 134 [place] [address] 08/27/2024 1:00 PM EDT Office Visit [facility] Multidisciplinary Oncology Clinic [address] [place] [address] Bobby Vazquez MD [address] Shantel Cooper [facility] [address] [place] [address] 08/27/2024 1:00 PM EDT Clinical Support [facility] [address] [place] [address] 08/27/2024 2:30 PM EDT Appointment [facility] 2 [address] [place] [address] 09/17/2024 2:30 PM EDT Appointment [facility] 2 [address] [place] [address] 10/08/2024 2:30 PM EDT Appointment [facility] 2 [address] [place] [address] 10/19/2024 11:30 AM EDT Office Visit [facility] Multidisciplinary Oncology Clinic [address] [place] [address] Kym Romero, FLORICULTURE TEACHER 800 [facility] Shantel Cooper [facility] 134 [place] [address] 11/24/2024 11:00 AM EDT Office Visit [facility] Multidisciplinary Oncology Clinic [address] [place] [address] Adal Franklin MD [address] [place] [address] 12/15/2024 1:00 PM EDT Office Visit [facility] 110 [place] [address] Efren Fallon MD 110 [facility] 550 [place] [address] 12/29/2024 9:30 AM EDT Clinical Support [facility] 800 [facility], 2nd [place] [address] 12/29/2024 10:00 AM EDT Office Visit [facility] [address], 2nd [place] [address] Carlito Mccartney MD 219 [facility] [address] [place] [address] 03/23/2025 10:40 AM EST Office Visit [facility] 800 [facility], 2nd [place] [address] Arabella Romero, FLORICULTURE TEACHER 800 [place] [address] documented as of this encounter Visit Diagnoses [...] documented as of this encounter Care Teams Power Bender Operator Relationship Specialty Start Date End Date Efren Roy DO [address] [place] [address] PCP - General 03/04/23 Efren Roy DO [address] [place] [address] Pain Medicine 01/03/23 Rosa Maria Beltran APRN 5 [facility] [address] [place] [address] Nurse Practitioner Family Medicine 07/21/23 Bobby Vazquez MD 800 [facility] Shantel [address] [place] [address] Consulting Physician Medical Oncology 09/17/23 Cally Henderson PA [address] [facility] [address] [place] [address] Physician Maple Products Supervisor Urology 09/17/23 documented as of this encounter
--- OUTSIDE RECORDS SUMMARY | 2024-08-19 12:06 | XMS_ITS | Encounter Summary ---
Author Organization [facility] Address [address] [place] [address] Care Team Providers Care News Producer Name Role Phone Efren Roy DO Unavailable [phone] Efren Roy DO Primary Care Provider [phone] Rosa Maria Beltran APRN Unavailable Bobby Vazquez MD Unavailable Cally Henderson Unavailable [phone] Encounter Details Date Type Department Care Team (Late st Contact Info) Description 07/27/2024 Telephone [facility] [address] [place] [address] Bobby Vazquez MD [address] [address] Social History Tobacco Use Types [...] any time in the past 12 m [facility], were you homeless or living in [...] drink first t tianna in the morning (EYE-WELL SERVICE FLOOR WORKER) to steady your nerves or to get rid of a hangover? 0 02/27/2023 CAGE Questionnaire Score 0 023 Utilities Answer Date Recorded In the past 12 months has th e [employer], gas, oil, or water company threatened to [...] Description 08/20/2024 9:30 AM EDT Office Visit [facility] Multidisciplinary Oncology Clinic [address] [place] [address] Sara Tesfaye, HARNESS REPAIRER 800 [facility] Shantel Cooper [address] [address] 08/27/2024 1:00 PM EDT Office Visit [facility] Multidisciplinary Oncology Clinic [address] [place] [address] Bobby Vazquez MD 800 [facility] Shantel Cooper [facility] 134 [place] [address] 08/27/2024 1:00 PM EDT Clinical Support [facility] Multidisciplinary Oncology Clinic [address] [place] [address] 08/27/2024 2:30 PM EDT Appointment [facility] Infusion [facility] 2 [address] [place] [address] 09/17/2024 2:30 PM EDT Appointment [facility] Infusion Clinic 2 [address] [place] [address] 10/08/2024 2:30 PM EDT Appointment [facility] Infusion Clinic 2 [address] [place] [address] 10/19/2024 11:30 AM EDT Office Visit [facility] Multidisciplinary Oncology [facility] [address] [place] [address] Kym Romero, HARNESS REPAIRER 800 [facility] Kenneth [facility] 134 [place] [address] 11/24/2024 11:00 AM EDT Office Visit [facility] Multidisciplinary Oncology Clinic [address] [place] [address] Adal Franklin MD [address] [place] [address] 12/15/2024 1:00 PM EDT Office Visit [facility] [address] [place] [address] Efren Fallon MD 110 [facility] 550 [place] [address] 12/29/2024 9:30 AM EDT Clinical Support [facility] 800 [facility], 2nd [place] [address] 12/29/2024 10:00 AM EDT Office Visit [facility] 800 [facility], [address] [place] [address] Carlito Mccartney MD 2194 [facility] 125 [place] [address] 03/23/2025 10:40 AM EST Office Visit [facility] 800 [facility], [address] [place] [address] Arabella Roemro, JYOTSNA [address] [place] [address] documented as of this encounter Visit Diagnoses [...] documented as of this encounter Care Teams News Producer Relationship Specialty Start Date End Date Efren Roy DO [address] [place] [address] PCP - General 03/04/23 Efren Roy DO [address] [place] [address] Pain Medicine 01/03/23 Rosa Maria Beltran APRN [address] [place] [address] Nurse Practitioner Family Medicine 07/21/23 Bobby Vazquez MD [address] Shantel Cooper [facility] Saurav [address] [place] [address] Consulting Physician Medical Oncology 09/17/23 Cally Henderson PA 7[address] [facility] [address] [place] [address] Physician Filament Coil Winder Urology 09/17/23 documented as of this encounter
--- OUTSIDE RECORDS SUMMARY | 2024-08-19 12:07 | XMS_ITS | Encounter Summary ---
Author Organization [facility] Address [address] [place] [address] Care Team Providers Care Dispensing Optician Apprentice Name Role Phone Efren Roy DO Unavailable [phone] Efren Roy DO Primary Care Provider [phone] Rosa Maria Beltran APRN Unavailable Bobby Vazquez MD Unavailable Cally Henderson Unavailable [phone] Encounter Details Date Type Department Care Team (Late st Contact Info) Description 07/27/2024 Telephone [facility] 800 [place] [address] Bobby Vazquez MD [address] [address] Social History Tobacco Use Types [...] drink first t tianna in the morning (EYE-MACHINING TECHNICIAN) to steady your nerves or to get rid of a hangover? 0 02/27/2023 CAGE Questionnaire Score 0 023 Utilities Answer Date Recorded In the past 12 months has th e [employer], gas, oil, or water company threatened to [...] optimal time of day to reach caller: [phone] Note: Please do not reply to this [...] Description 08/20/2024 9:30 AM EDT Office Visit [facility] Multidisciplinary Oncology Clinic 800 [place] [address] Sara Tesfaye, RAILROAD CARMAN 800 [facility] [address] [address] 08/27/2024 1:00 PM EDT Office Visit [facility] Multidisciplinary Oncology [facility] 800 [place] [address] Bobby Vazquez MD 800 [facility] [address] [address] 08/27/2024 1:00 PM EDT Clinical Support [facility] Multidisciplinary Oncology Clinic 800 [place] [address] 08/27/2024 2:30 PM EDT Appointment [facility] Infusion Clinic 2 [address] [place] [address] 09/17/2024 2:30 PM EDT Appointment [facility] Infusion Clinic 2 4 [place] [address] 10/08/2024 2:30 PM EDT Appointment [facility] Infusion Clinic 2 [address] [place] [address] 10/19/2024 11:30 AM EDT Office Visit [facility] Multidisciplinary Oncology Clinic [address] [place] [address] Kym Romero, RAILROAD CARMAN 800 [facility] [address] [address] 11/24/2024 11:00 AM EDT Office Visit [facility] Multidisciplinary Oncology Clinic 800 [place] [address] Adal Franklin MD 740 [address] [facility] [address] [place] [address] 12/15/2024 1:00 PM EDT Office Visit [facility] [address] [place] [address] Efren Fallon MD [address] [facility] Saurav [address] [place] [address] 12/29/2024 9:30 AM EDT Clinical Support [facility] 800 [facility], 2nd [place] [address] 12/29/2024 10:00 AM EDT Office Visit [facility] 800 [facility], 2nd [place] [address] Carlito Mccartney MD 2195 [facility] 125 [place] [address] 03/23/2025 10:40 AM EST Office Visit [facility] 800 [facility], 2nd [place] [address] Arabella Romero, RAILROAD CARMAN 800 [place] [address] documented as of this encounter Visit Diagnoses [...] documented as of this encounter Care Teams Dispensing Optician Apprentice Relationship Specialty Start Date End Date Efren Roy DO [address] [place] [address] PCP - General 03/04/23 Efren Roy DO 439 [place] [address] Pain Medicine 01/03/23 Rosa Maria Beltran APRN 2195 [facility] Saurav [address] [place] [address] Nurse Practitioner Family Medicine 07/21/23 Bobby Vazquez MD 800 [facility]av [address] [place] [address] Consulting Physician Medical Oncology 09/17/23 Cally Henderson PA [address] [place] [address] Physician Pigment Weigher Urology 09/17/23 documented as of this encounter
--- OUTSIDE RECORDS SUMMARY | 2024-08-19 12:07 | XMS_ITS | Encounter Summary ---
Author Organization [facility] Address [address] [place] [address] Care Team Providers Care Client Service Consultant Name Role Phone Efren Roy DO Unavailable [phone] Efren Roy DO Primary Care Provider [phone] Rosa Maria Beltran APRN Unavailable [phone] Bobby Vazquez MD Unavailable Cally Henderson Unavailable [phone] Encounter Details Date Type Department Care Team (Late st Contact Info) Description 07/27/2024 Results Follow-Up [facility] A Emergency Department [address] [place] [address] Alma Garvey, PharmD [address] [place] [address] Social History Tobacco Use Types [...] any time in the past 12 m [facility], were you homeless or living [...] drink first t tianna in the morning (EYE-INFORMATION RECEPTIONIST) to steady your nerves or to get [...] Suicidal Behavior (Lifetime) No 10:43 AM EDT Maakyla Burden RN documented as of this encounter Miscellaneous Notes * Result Encounter Note - Alma Garvey, PharmD - 07/27/2024 9:26 AM EDT 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 He was discharged with prescription for cefadroxil. Antibiotic may not adequately cover the organism resulted. Contacted patient to relay results and discuss therapy change. New [facility] Am[facility] Patient expressed understanding and all questions answered. documented in this encounter Plan of Treatment Upcoming Encounters Date Type Department Care Team (Late st Contact Info) Description 08/20/2024 9:30 AM EDT Office Visit [facility] Multidisciplinary Oncology Clinic [address] [place] [address] Sara Tesfaye APRN 800 [facility] Shantel Cooper [address] [address] 08/27/2024 1:00 PM EDT Office Visit [facility] Multidisciplinary Oncology Clinic [address] [place] [address] Bobby Vazquez MD 800 [facility] [address] [address] 08/27/2024 1:00 PM EDT Clinical Support [facility] Multidisciplinary Oncology Clinic [address] [place] [address] 08/27/2024 2:30 PM EDT Appointment [facility] Infusion Clinic 2 4 [place] [address] 09/17/2024 2:30 PM EDT Appointment [facility] Infusion Clinic 2 4 [place] [address] 10/08/2024 2:30 PM EDT Appointment [facility] Infusion Clinic 2 [address] [place] [address] 10/19/2024 11:30 AM EDT Office Visit [facility] Multidisciplinary Oncology Clinic [address] [place] [address] Kym Romero, POULTRY FARMER 800 [facility] Kenneth [address] [address] 11/24/2024 11:00 AM EDT Office Visit [facility] Multidisciplinary Oncology Clinic [address] [place] [address] Adal Franklin MD [address] [facility] [address] [place] [address] 12/15/2024 1:00 PM EDT Office Visit [facility] [address] [place] [address] Efren Fallon MD [address] [place] [address] 12/29/2024 9:30 AM EDT Clinical Support [facility] 800 [facility], 2nd [place] [address] 12/29/2024 10:00 AM EDT Office Visit [facility] 800 [facility], 2nd [place] [address] Carlito Mccartney MD 2[address] [facility] Saurav [address] [place] [address] 03/23/2025 10:40 AM EST Office Visit [facility] 800 [facility], [address]nd [place] [address] Arabella Romero, POULTRY FARMER [address] [place] [address] documented as of this encounter [...] documented as of this encounter Care Teams Client Service Consultant Relationship Specialty Start Date End Date Efren Roy DO [address] [place] [address] PCP - General 03/04/23 Efren Roy DO [address] [place] [address] Pain Medicine 01/03/23 Rosa Maria Beltran APRN [address] [facility] Saur[address] 125 [place] [address] Nurse Practitioner Family Medicine 07/21/23 Bobby Vazquez MD 800 [facility] Saurav [address] [place] [address] Consulting Physician Medical Oncology 09/17/23 Cally Henderson PA [address] [place] [address] Physician Perinatal Specialist Urology 09/17/23 documented as of this encounter
--- OUTSIDE RECORDS SUMMARY | 2024-08-19 12:07 | XMS_ITS | Encounter Summary ---
Author Organization [facility] Address [address] [place] [address] Care Team Providers Care Trust Operations Assistant Name Role Phone Pastor Michel MD Primary Care Provider [phone] Pastor Michel MD Primary Care Provider + [phone] Efren Roy DO Unavailable [phone] Efren Roy DO Primary Care Provider [phone] Rosa Maria Beltran APRN Unavailable [phone] Bobby Vazquez MD Unavailable Cally Henderson Unavailable [phone] Encounter Details Date Type Department Care Team (Late st Contact Info) Description 11/01/2022 Orders Only External Location [address] [place] [address] Provider, External Social History Tobacco Use Types [...] Office Visit [facility] [address] [place] [address] Sara Tesfaye, JYOTSNA 800 [facility] Shantel Cooper [facility] [address] [place] [address] 08/27/2024 1:00 PM EDT Office Visit [facility] [address] [place] [address] Bobby Vazquez MD 800 [facility] Shantel Cooper [facility] [address] [place] [address] 08/27/2024 1:00 PM EDT Clinical Support [facility] Multidisciplinary Oncology Clinic [address] [place] [address] 08/27/2024 2:30 PM EDT Appointment [facility] Infusion [facility] 2 [address] [place] [address] 09/17/2024 2:30 PM EDT Appointment [facility] 2 [address] [place] [address] 10/08/2024 2:30 PM EDT Appointment [facility] Infusion Clinic 2 [address] [place] [address] 10/19/2024 11:30 AM EDT Office Visit [facility] Multidisciplinary Oncology Clinic [address] [place] [address] Kym Romero, BRAND MANAGER 800 [facility] Kenneth [facility] [address] [place] [address] 11/24/2024 11:00 AM EDT Office Visit [facility] Multidisciplinary Oncology Clinic [address] [place] [address] Adal Franklin MD [address] [place] [address] 12/15/2024 1:00 PM EDT Office Visit [facility] [address] [place] [address] Efren Fallon MD [address] [place] [address] 12/29/2024 9:30 AM EDT Clinical Support [facility] 800 [facility], [address] [place] [address] 12/29/2024 10:00 AM EDT Office Visit [facility] 800 [facility], [address] [place] [address] Carlito Mccartney MD [facility]5 [facility] [address] [place] [address] 03/23/2025 10:40 AM EST Office Visit [facility] 800 [facility], [address] [place] [address] Arabella Romero, BRAND MANAGER [address] [place] [address] documented as of this encounter Procedures Procedure Name Priority Date/Time Associated Diagnosis Comments CT OUTSIDE IMAGES 11/01/2022 10:21 AM EDT documented in this encounter Results * CT OUTSIDE IMAGES (11/01/2022 10:21 AM EDT) Anatomical Region Laterality Modality Computed Tomogra phy 11/01/2022 10:2 1 AM EDT us External Provider IMG CT PROCEDURES Final Result documented in this encounter Visit Diagnoses Not on filedocumented in this encounter Additional Health Concerns Infection Onset Date Last Indicated Resolved Time COVID-19 Rule-Out 03/14/2023 03/14/2023 03/14/2023 3:07 PM EST COVID-19 Rule-Out 12/29/2023 12/29/2023 12/29/2023 1:16 PM EDT COVID-19 Rule-Out 05/24/2024 05/24/202405/24/2024 8:55 PM EDT Respiratory Rule-Out 05/24/2024 05/24/2024 1:33 AM EDT documented as of this encounter Care Teams Trust Operations Assistant Relationship Specialty Start Date End Date Pastor Michel MD [address] [place], [place] [phone] PCP - General 07/14/20 01/02/23 Pastor Michel MD [address] [place], [place] [phone] PCP - General 01/03/23 03/03/23 Efren Roy DO [address] [place] [id number] PCP - General 03/04/23 Efren Roy DO [address] [place] [id number] Pain Medicine 01/03/23 Rosa Maria Beltran APRN [facility] 125 [place] [address] Nurse Practitioner Family Medicine 07/21/23 Bobby Vazquez MD 800 [facility] Saurav [address] [place] [address] Consulting Physician Medical Oncology 09/17/23 Cally Henderson PA [address] [facility] [address] [place] [address] Physician Skate Maker Urology 09/17/23 documented as of this encounter
--- OUTSIDE RECORDS SUMMARY | 2024-08-19 12:07 | XMS_ITS | Data Portability ---
Author Organization [facility] Medicine and [facility] [place] Address [address] [place] [phone] Assessment No assessment recorded. Plan of Treatment Reminders Order Date Submit Date Provider Last Modified By Organization Details Last Modified Time Details Appointments None record ed. Lab None record ed. Referral None record ed. Procedures None record ed. Surgeries None record ed. Imaging None record ed. Medication Orders None record ed. Patient TargetsNo targets recorded. Patient InstructionsNo instructions recorded. Reason for Referral None Reported. Results Created Date Observation Date Name Description Value Unit Range Abnormal Flag Note LastModifiedBy Organization Detail LastModifiedTime 11/06/1911/01/2022 CT, abdom en + pelvi s, w/o contr ast No observ ation record ed. [email or web address] [facility] [address], [place], [address], 12/09/2022 08:01:39 Result Notes None recorded. Medical Equipment None Reported. Allergies No known drug allergies Medications Name Sig Start Date Stop Date Status Note LastModified by Organization Details LastModified Time pravastatin 40 mg tablet TAKE 1 TABLET 1 TIME EACH DAY AT BEDTIME FOR CHOLESTER OL active Not Available Not Available No t Available hydrocodone 10 mg-acetamin ophen 325 mg tablet TAKE 1 TABLET 3 TIMES EACH DAY NEEDED FOR PAIN active Not Available Not Available No t Available tramadol 50 mg tablet TAKE 1 TABLET EVERY 6 HOURS NEEDED FOR BREAKTHRO UGH BACK PAIN 11/21 completed Not Available Not Available Not Available ketorolac 10 mg tablet 11/21 completed Not Available Not Available Not Available tamsulosin 0.4 mg capsule TAKE 1 CAPSULE BY MOUTH ONCE DAILY 11/21 completed Not Available Not Available Not Available gabapentin 800 mg tablet TAKE 1 TABLET 3 TIMES EACH DAY active Not Available Not Available No t Available baclofen 10 mg tablet TAKE 1 TABLET EVERY 8 HOURS NEEDED FOR MUSCLE SPASMS OR PAIN active Not Available Not Available No t Available pantoprazol e 40 mg tablet,rena yed release TAKE 1 TABLET 1 TIME EACH DAY 11/21 completed Not Available Not Available Not Available levothyroxi ne 125 mcg tablet TAKE 1 TABLET 1 TIME EACH DAY IN THE MORNING ON AN EMPTY STOMACH FOR THYROID active Not Available Not Available No t Available lisinopril 10 mg tablet TAKE 1 TABLET 1 TIME EACH DAY FOR BLOOD PRESSURE active Not Available Not Available No t Available montelukast 10 mg tablet TAKE 1 TABLET 1 TIME EACH DAY IN THE EVENING FOR BREATHING PROBLEMS 11/21 completed Not Available Not Available Not Available polyethylen e glycol 3350 17 gram/dose oral powder MIX 17 GRAMS IN 8 OUNCES OF WATER AND DRINK ONCE A DAY. active Not Available Not Available No t Available levofloxaci n 500 mg tablet 11/21 completed Not Available Not Available Not Available fluticasone propionate 50 mcg/actuati on nasal spray,suspe nsion SPRAY 1 TIME IN EACH NOSTRIL 1 TIME EACH DAY 11/21 completed Not Available Not Available Not Available aspirin active Not Available Not Avail able Not Available Flonase active Not Available Not Avail able Not Available Singulair active Not Available Not Ayesha ilable Not Available Centrum Silver active Not Available Not Available Not Available Protonix active Not Available Not Avai lable Not Available naloxone 4 mg/actuatio n nasal spray SPRAY 1 DOSE INTO 1 NOSTRIL IN CASE OF OVERDOSE. IF PERSON DOES NOT RESPOND IN 2-3 MINUTES, SPRAY OTHER DOSE INTO OTHER NOSTRIL. 11/21 completed Not Available Not Available Not Available Vitals Date Recorded Body height Body mass index (BMI) Body weight Body temperature Provider Name and Address Organization Details Last Updated DateTime 11/21/2022 177.8 cm 27.8 kg/m2 92271.92 g 98 [degF] [facility] [place] 11/21/2022 10:39:40 Social History None recorded. Functional Status Question Answer Note LastModified by Organization D etails LastModified Time What is your level of alcohol consumption? None [email or web address] Information not available 11/21/2022 Mental Status None recorded. Family History Nothing Reported Notes:mother cancer father heart failure brother cancer sister cancer Medical History Condition Response Kidney Stones Y Past Encounters Encounter ID Performer Location Encounter Start Date Encounter Closed Date Diagnosis/Indication Diagnosis SNOMED-CT Code Diagnosis ICD10 Code Diagnosis Note [id number] Hua King Jr, MD [facility]3] Urology [address] [facility] [place] [address] 11/21/2022 10:16:49 11/21/2022 11:06:08 Disorder of kidney and/or ureter 982293465 N28.9 57-year-ol d white male with recent right-side d flank pain of [address] scan reveals a mid ureteral mass with associated hydronephr osis and adenopathy adjacent to the mass. His discomfort is currently controlled with tramadol. 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 Further evaluation with cystoscopy , retrograde , ureterosco py and biopsy is recommende d. 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 For that I would refer him to Urology. Think he would benefit from the initial evaluation there as well to prevent any redundancy procedures . I asked him to seed cone picker the CT scan disc from [facility] to his appointmen t with him. Health Concerns Section Related Observation LastModified by Organization Detai ls LastModified Time None Recorded Concern Status LastModified by Organization Details LastModified Time None Recorded Advance Directives Directive None Recorded Payers Insurance Date Sequence Insurance Name Policy Number Policy Breen Covered Member ID Breen Member ID Guarantor Name 11/21/2022 1 [employer] [facility] (MEDICAID HMO) Germán Goode [id number] Germán Goode Notes Date Note Type Note Provider Name and Address Organization Details Recorded Time 11/21/2022 text/html Patient is a 57-year-old white male referred for right ureteral mass. Patient states that three-week history of some right-sided flank and right lower quadrant pain. He denies any associated nausea, vomiting or gross hematuria. He presented to his primary care physician who ordered a CT scan on November 01. CT shows marked right hydronephrosis and proximal hydroureter. There was an abnormal soft tissue density associated with the mid right ureter. There was no apparent soft tissue mass in the mid right ureter and associated adenopathy adjacent to the ureteral mass. The largest node measures 2.8 cm. Patient states he continues to have some discomfort in the right flank which is controlled with tramadol. He does not have a disc with the images today. Hua King Jr, MD [address] [place] [address], [address], [place], [address], [facility] [place] 11/21/2022 11:15:37
--- OUTSIDE RECORDS SUMMARY | 2024-08-19 12:07 | XMS_ITS | Encounter Summary ---
Author Organization Healthcare Address [address] [place] [address] Care Team Providers Care Underground Heavy Equipment Operator Name Role Phone Pastor Michel MD Primary Care Provider [phone] Pastor Michel MD Primary Care Provider [phone] Efren Roy DO Unavailable [phone] Efren Roy DO Primary Care Provider [phone] Rosa Maria Beltran EMPLOYMENT CLERK Unavailable [phone] Bobby Vaqzuez MD Unavailable Cally Henderson Unavailable [phone] Encounter Details Date Type Department Care Team (Late st Contact Info) Description 12/29/2021 Orders Only External Location [address] [place] [address] Pastor Michel MD [address] [place] [address] Social History Tobacco Use Types [...] Description 08/20/2024 9:30 AM EDT Office Visit [facility] Multidisciplinary Oncology Clinic [address] [place] [phone] Sara Tesfaye, EMPLOYMENT CLERK [address] [facility] Shantel Cooper [facility] [address] [place] [address] 08/27/2024 1:00 PM EDT Office Visit [facility] Multidisciplinary Oncology Clinic [address] [place] [address] Bobby Vazquez MD [address] [facility] [address] [address] 08/27/2024 1:00 PM EDT Clinical Support [facility] Mult[facility]isciplinary Oncology Clinic [address] [place] [address] 08/27/2024 2:30 PM EDT Appointment [facility] Infusion Clinic [address] [place] [address] 09/17/2024 2:30 PM EDT Appointment [facility] Infusion [facility] 2 [address] [place] [address] 10/08/2024 2:30 PM EDT Appointment [facility] Infusion [facility] 2 [address] [place] [address] 10/19/2024 11:30 AM EDT Office Visit [facility] Multidisciplinary Oncology Clinic [address] [place] [address] Kym Romero, EMPLOYMENT CLERK [address] [facility] [address] [place] [address] 11/24/2024 11:00 AM EDT Office Visit [facility] Mult[facility]isciplinary Oncology Clinic [address] [place] [address] Adal Franklin MD [address] [facility] [address] [place] [address] 12/15/2024 1:00 PM EDT Office Visit [facility] [address] [place] [address] Efren Fallon MD [address] [facility] S[address] [place] [address] 12/29/2024 9:30 AM EDT Clinical Support [facility] [address] [facility], [address] [place] [address] 12/29/2024 10:00 AM EDT Office Visit [facility] [address] [facility] [place] [address] Carlito Mccartney MD [address] [facility] [address] [place] [address] 03/23/2025 10:40 AM EST Office Visit [facility] [address] [facility] [place] [address] Arabella Romero, EMPLOYMENT CLERK [address] [place] [address] documented as of this encounter Procedures Procedure [...] as of this encounter Care Teams Underground Heavy Equipment Operator Relationship Specialty Start Date End Date Pastor Michel MD [address] [place] [address] PCP - General 07/14/20 01/02/23 Pastor Michel MD [address] [place] [address] PCP - General 01/03/23 03/03/23 Efren Roy DO [address] [place] [address] PCP - General 03/04/23 Efren Roy DO [address] [place] [address] Pain Medicine 01/03/23 Rosa Maria Beltran APRN [address] [facility] [address] [place] [address] Nurse Practitioner Family Medicine 07/21/23 Bobby Vazquez MD [address] [facility] [address] [place] [address] Consulting Physician Medical Oncology 09/17/23 Cally Henderson PA [address] [facility] [address] [place] [address] Physician [employer] Football Coach Urology 09/17/23 documented as of this encounter
--- OUTSIDE RECORDS SUMMARY | 2024-08-19 12:07 | XMS_ITS ---
Author Organization [facility] Address [address] [place] [address] Care Team Providers Care Bottle Line Worker Name Role Phone Efren Roy DO Unavailable [phone] Efren Roy DO Primary Care Provider Rosa Maria Beltran APRN Unavailable [phone] Bobby Vazquez MD Unavailable Cally Henderson Unavailable [phone] Active Problems Problem Noted Date Diagnosed Date [...] Treatment Medications Discontinue Reason Plan Provider Cycles [id number]: Arm 1: Sacituzumab govitecan weekly x 2 [...]
--- OUTSIDE RECORDS SUMMARY | 2024-08-19 12:07 | XMS_ITS | Encounter Summary ---
Author Organization [facility] Address [address] [place] [address] Care Team Providers Care Scarfer Name Role Phone Efren Roy DO Unavailable [phone] Efren Roy DO Primary Care Provider [phone] Rosa Maria Beltran APRN Unavailable [phone] Bobby Vazquez MD Unavailable Cally Henderson Unavailable [phone] Encounter Details Date Type Department Care Team (Late st Contact Info) Description 07/23/2024 Telephone [facility] [address] [place] [phone] Humberto Larios, PharmD Social History Tobacco Use [...] drink first t tianna in the morning (EYE-JEWELRY CASTING MODEL MAKER APPRENTICE) to steady your nerves or to get rid of a hangover? 0 02/27/2023 CAGE Questionnaire Score 0 023 Utilities Answer Date Recorded In the past 12 months has th e [employer], gas, oil, or water [employer] threatened to shut off services in your [...] Larios PharmD - 07/23/2024 9:29 AM EDT [facility] Discharge of Clinical Services Specialty Medications and [...] Description 08/20/2024 9:30 AM EDT Office Visit [facility] Multidisciplinary Oncology Clinic [address] [place] [address] Sara Tesfaye, SENIOR MANAGING DIRECTOR [address] [facility] Shantel Cooper [facility] Saurav [address] [place] [address] 08/27/2024 1:00 PM EDT Office Visit [facility] Multidisciplinary Oncology Clinic [address] [place] [address] Bobby Vazquez MD [address] [facility] Shantel Cooper [facility] [address] [place] [address] 08/27/2024 1:00 PM EDT Clinical Support [facility] Multidisciplinary Oncology Clinic [address] [place] [phone] 08/27/2024 2:30 PM EDT Appointment [facility] 2 [address] [place] [address] 09/17/2024 2:30 PM EDT Appointment [facility] Infusion Clinic 2 [address] [place] [address] 10/08/2024 2:30 PM EDT Appointment [facility] Infusion Clinic 2 [address] [place] [address] 10/19/2024 11:30 AM EDT Office Visit [facility] Multidisciplinary Oncology [facility] [address] [place] [address] Kym Romero, SENIOR MANAGING DIRECTOR [address] [facility] [address] [place] [address] 11/24/2024 11:00 AM EDT Office Visit [facility] Multidisciplinary Oncology Clinic [address] [place] [phone] Adal Franklin MD [address] [facility] [address] [place] [address] 12/15/2024 1:00 PM EDT Office Visit [facility] [address] [place] [address] Efren Fallon MD 110 [facility] [address] [place] [address] 12/29/2024 9:30 AM EDT Clinical Support [facility] [address] [facility] [place] [address] 12/29/2024 10:00 AM EDT Office Visit [facility] [address] [facility], [address] [place] [address] Carlito Mccartney MD [address] [address] 03/23/2025 10:40 AM EST Office Visit [facility] [address] [facility], [address] [place] [address] Arabella Romero APRN [address] [place] [address] documented as of this encounter Visit Diagnoses [...] documented as of this encounter Care Teams Scarfer Relationship Specialty Start Date End Date Efren Roy DO [address] [place] [phone] PCP - General 03/04/23 Efren Roy DO [address] [place] [address] Pain Medicine 01/03/23 Rosa Maria Beltran APRN [address] [phone] Nurse Practitioner Family Medicine 07/21/23 Bobby Vazquez MD [address] [place] [address] [facility] S[address] [place] [address] Consulting Physician Medical Oncology 09/17/23 Cally Henderson PA [address] [facility] [address] [place] [address] Physician Construction Accountant Urology 09/17/23 documented as of this encounter
--- OUTSIDE RECORDS SUMMARY | 2024-08-19 12:07 | XMS_ITS | Clinical Summary ---
Author Organization [facility] Address [address] [place] [address] Care Team Providers Care Mortar Mixer Operator Name Role Phone Efren Roy DO Unavailable [phone] Efren Roy DO Primary Care Provider Rosa Maria Beltran APRN Unavailable Bobby Vazquez MD Unavailable Cally Henderson Unavailable Allergies Active Allergy Reactions Criticality Noted Date [...] by mouth 2 (two) times a day. 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); Malignant neoplasm of urinary bladder, unspecified site (CMS/HCC); Dysuria Discharge Disposition: Home or Self Care 08/06/2024 11:30 AM EDT Clinical Support [facility] [address] [place] [phone] 08/06/2024 11:30 AM EDT Office Visit [facility] [address] [place] [phone] Sara Tesfaye APRN Malignant neoplasm of urinary bladder, unspecified site (CMS/HCC) (Primary Dx); Dysuria; Dehydration; Malignant tumor of right ureter (CMS/HCC) 08/06/2024 Travel 08/02/2024 10:00 AM EDT Office Visit [facility] [address] [phone] Carlito Mccartney MD Post-surgical hypothyroidism (Primary Dx); H/O malignant neoplasm of thyroid; Sinus tachycardia; Fatigue, unspecified type 08/02/2024 9:30 AM EDT Clinical Support [facility] [address] [phone] Post-surgical hypothyroidism 08/02/2024 Results Follow-Up [facility] [address] [address] Carlito Mccartney MD 08/02/2024 Travel 07/29/2024 Refill [facility] [address] [place] [address] Bobby Vazquez MD 07/28/2024 12:54 PM EDT Anesthesia Event [facility] [address] [place] [address] Juvenal Royal MD Rock, Holly R, PA 07/28/2024 9:45 AM EDT - 07/28/2024 11:05 AM EDT Surgery [facility] [address] [place] [address] Gloria Velasquez MD CYSTOSCOPY, WITH URETERAL STENT INSERTION [[id number] (CPT )] 07/28/2024 Travel 07/27/2024 6:26 PM EDT - 07/28/2024 3:44 PM EDT Hospital Encounter [facility] [address] [place] [address] Jin Clark MD Micciche, Andrew F, MD Hensley, Patrick J, MD Hydronephrosis with renal and ureteral calculus obstruction (Primary Dx); Hydronephrosis, unspecified hydronephrosis type Discharge Disposition: Home or Self Care 07/27/2024 Travel 07/27/2024 Telephone [facility] [address] [place] [address] Bobby Vazquez MD 07/27/2024 Orders Only [facility] [address] [place] [address] Bobby Vazquez MD 07/27/2024 Telephone [facility] [address] [place] [phone] Bobby Vazquez MD 07/27/2024 Results Follow-Up [facility] Emergency Department [address] [place] [address] Alma Garvey, PharmD 07/27/2024 Telephone [facility] [address] [place] [address] Bobby Vazquez MD 07/23/2024 11:29 AM EDT - 07/24/2024 9:27 AM EDT Hospital Encounter [facility] [address] [place] [phone] Holli Ledezma MD Trott, Terren R, MD Carter, Craig T, DO Wells, Kimberly J, MD Acute cystitis without hematuria (Primary Dx); Nausea and vomiting, unspecified vomiting type; Hyponatremia; Malignant neoplasm of urinary bladder, unspecified site (CMS/HCC) Discharge Disposition: Home or Self Care 07/23/2024 Travel 07/23/2024 Telephone [facility] [address] [place] [address] Humberto Larios, PharmD 07/22/2024 Travel 07/19/2024 Telephone [facility] [address] [place] [address] Rosa Maria Eckert MD 07/15/2024 Orders Only [facility] [address] [place] [phone] Bobby Vazquez MD 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 [place] [address] Malignant tumor of right ureter (CMS/HCC) Discharge Disposition: Home or Self Care 07/14/2024 Travel 07/13/2024 Travel 07/13/2024 Refill [facility] [address] [place] [phone] Bobby Vazquez MD 07/06/2024 Telephone [facility] [address] [place] [address] aTrsha Rider Distress Screen Follow-up 06/23/2024 Telephone [facility] [address] [place] [address] Radha Ramos 06/16/2024 11:00 AM EDT Clinical Support [facility] Treatment [facility] 800 [facility] 2nd [place] [address] Dehydration (Primary Dx); Malignant neoplasm of urinary bladder, unspecified site (CMS/HCC) 06/16/2024 10:30 AM EDT Office Visit [facility] [address] [place] [address] Sara Tesfaye APRN 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) 06/16/2024 10:00 AM EDT Clinical Support [facility] [address] [place] [address] Malignant tumor of right ureter (CMS/HCC) 06/16/2024 Telephone [facility] Oncology [facility] [address] [place] [address] Bobby Vazquez MD 06/16/2024 Travel 06/15/2024 Clinical Support [facility] [address] [place] [address] Rocky Martinez, PharmD Malignant neoplasm of urinary bladder, unspecified site (CMS/HCC) (Primary Dx) 06/14/2024 1:00 PM EDT Clinical Support [facility] 800 [facility] [address]nd [place] [address] Dehydration (Primary Dx) 06/14/2024 Travel 06/13/2024 Travel 06/11/2024 10:00 AM EDT Office Visit [facility] [address] [place] [address] Kym Romero, JYOTSNA 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) 06/11/2024 9:30 AM EDT Clinical Support [facility] [address] [place] [address] Malignant tumor of right ureter (CMS/HCC) 06/11/2024 Nutrition [facility] [address] [place] [address] RamosRadha Abrahan 06/11/2024 Travel 06/10/2024 Travel 06/02/2024 Telephone [facility] [address] [place] [phone] Madisyn Gaspar, PharmD 05/31/2024 Refill [facility] [address] [place] [address] Bobby Vazquez MD 05/25/2024 Travel 05/24/2024 6:29 PM EDT - 05/27/2024 2:16 PM EDT Hospital Encounter [facility] Inpatient [address] [place] [address] Lincoln Arnold MD Prabhu, MD Emmett Randolph, MD Félix Yost, Rosendo Hauser MD Pneumonia of right lower lobe due to infectious organism (Primary Dx); Weakness Discharge Disposition: Home or Self Care 05/24/2024 Travel 05/24/2024 Telephone [facility] [address] [place] [phone] Sara Tesfaye APRN 05/19/2024 11:30 AM EDT Office Visit [facility] [address] [place] [phone] Kym Romero, PRODUCTION BORING MACHINE OPERATOR 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) 05/19/2024 11:00 AM EDT Clinical Support [facility] [address] [place] [address] Malignant tumor of right ureter (CMS/HCC) 05/19/2024 Travel from Last 3 Months Immunizations Immunization Administration Dates Next Due Influenza, injectable, quadrivalent 11/29/2016 Influenza, injectable, quadrivalent, preservativ e free 02/12/2022 Influenza, seasonal, injectable 11/29/2016 Family History Medical History Relation Name Comments Colon cancer Brother Cardiac disorder Father Elaine Russel Hypertension Father Elainedavdi Goode Other cancer Mother Other cancer Sister [...] drink first t tianna in the morning (EYE-PULMONOLOGIST/INTENSIVIST) to steady your nerves or to get [...] Description 08/20/2024 9:30 AM EDT Office Visit [facility] [address] [place] [address] Sara Tesfaye, PRODUCTION BORING MACHINE OPERATOR 800 [facility] [address] [place] [address] 08/27/2024 1:00 PM EDT Office Visit [facility] [address] [place] [address] Bobby Vazquez MD 800 [facility] [address] [address] 08/27/2024 1:00 PM EDT Clinical Support [facility] [address] [place] [address] 08/27/2024 2:30 PM EDT Appointment [facility] 2 [address] [place] [address] 09/17/2024 2:30 PM EDT Appointment [facility] 2 [address] [place] [address] 10/08/2024 2:30 PM EDT Appointment [facility] 2 [address] [place] [address] 10/19/2024 11:30 AM EDT Office Visit [facility] [address] [place] [address] Kym Romero, PRODUCTION BORING MACHINE OPERATOR 800 [facility] [address] [address] 11/24/2024 11:00 AM EDT Office Visit [facility] [address] [place] [phone] Adal Franklin MD [address] [facility] [address] [place] [phone] 12/15/2024 1:00 PM EDT Office Visit [facility] [address] [place] [address] Efren Fallon MD [address] [place] [address] 12/29/2024 9:30 AM EDT Clinical Support [facility] [address] [facility], 2nd [place] [phone] 12/29/2024 10:00 AM EDT Office Visit [facility] [address] [facility], [address] [place] [phone] Carlito Mccartney MD [facility]5 [facility] [address] [place] [phone] 03/23/2025 10:40 AM EST Office Visit [facility] [address] [facility], [address]nd [place] [phone] Arabella Romero, PRODUCTION BORING MACHINE OPERATOR [address] [place] [phone] Health Maintenance Due Date Last Done Comments [facility]-/Child/Adol SDOH Screenings 1965 [id number] Vaccine (#1) 02/10/1970 [facility]-Pneumococcal Vaccine: 50 + [...] this topic Medical Devices Implanted Type Area Bods Developer Device Identifier Shelf Expiration Date Model / Serial / Lot Stent Ureteral Double Pigtail Pos 6fr 26cm - [id number] - [id number] Implanted:Qty: 1 on 02/20/2024 by Adal Franklin MD at [facility] [id number] 11/30/2025 [id number] 0 / [id number] 0 / [id number] Stent Ureteral [employer] Monofil[employer] 7f/26cm - [id number] Implanted:Qty: 1 on 07/28/2024 by Gloria Velasquez MD at [facility] Stent Right: Ureter [id number] 02/07/2027 [id number] / / [id number] Stent Ureteral Double Pigtail Pos 6fr 26cm - [id number] Implanted:Qty: 1 on 12/20/2022 by Sunday Lopez MD at [facility] Right: Ureter [employer]-[id number] 07/14/2024 [id number] / / [id number] Port [employer] 8fr - [id number] Implanted:Qty: 1 on 01/30/2023 by Lincoln Patel MD at [facility] [employer]-[id number] / / Stent Ureteral Double Pigtail Pos 6fr 26cm - Sna - [id number] Implanted:Qty: 1 on 05/02/2023 by Adal Franklin MD at [facility] Right: Ureter [employer]-[id number] 12/08/2024 [id number] 0 / NA / [id number] Stent Ureteral Double Pigtail Pos 6fr 26cm - [id number] Implanted:Qty: 1 on 11/07/2023 by Adal Franklin MD at [facility] Right: Ureter [employer]-[id number] 08/20/2025 [id number] / / [id number] Procedures Procedure Name Priority Date/Time Associated Diagnosis [...] ANESTHESIA PLACEHOLDER Routine 07/28/2024 1:02 PM EDT LA AN ELECTIVE ENDOTRACHEAL AIRWAY Routine 07/28/2024 1:02 PM EDT LA CYSTOSCOPY,INSERT URETERAL STENT 07/28/2024 12:39 PM EDT [...] - 99 mg/dL 08/06/2024 12:16 PM EDT [facility] BUN, Plasma 21 8 - 23 mg/dL 08/06/2024 12:16 PM EDT [facility] Creatinine, Plasma 1.05 0.70 - 1.20 mg/dL 08/06/2024 12:16 PM EDT [facility] BUN/Creatinine Ratio 20 08/06/2024 12:16 PM EDT [facility] Sodium, Plasma 133(L) 136 - 145 mmol/L 08/06/2024 12:16 PM EDT [facility] Potassium, Plasma 4.5 3.6 - 4.9 mmol/L 08/06/2024 12:16 PM EDT [facility] Chloride, Plasma 97 97 - 107 mmol/L 08/06/2024 12:16 PM EDT [facility] CO2, Plasma 23 22 - 29 mmol/L 08/06/2024 12:16 PM EDT [facility] Anion Gap 13 6 - 16 mmol/L 08/06/2024 12:16 PM EDT [facility] Total Calcium, Plasma 9.9 8.9 - 10.2 mg/dL 08/06/2024 12:16 PM EDT [facility] Total Protein 7.8 6.3 - 7.9 g/dL 08/06/2024 12:16 PM EDT [facility] Albumin, Plasma 4.3 3.5 - 5.2 g/dL 08/06/2024 12:16 PM EDT [facility] AST, Plasma 43 10 - 50 U/L 08/06/2024 12:16 PM EDT [facility] ALT, Plasma 30 10 - 50 U/L 08/06/2024 12:16 PM EDT [facility] Alkaline Phosphatase, Plasma 117(H) 40 - 115 U/L 08/06/2024 12:16 PM EDT [facility] Total Bilirubin, Plasma 0.2 0.2 - 1.1 mg/dL 08/06/2024 12:16 PM EDT [facility] eGFRcr 81.3 mL/min/1.7 3m*2 08/06/2024 12:16 PM EDT [facility] Comment:Reported eGFRcr in m L/min/1.73m2 is based the CKD-EPI 2020 equation that does not use a race coefficient. Blood Venous blood specimen / Unknown 08/06/2024 11:45 AM EDT us Bobby Vazquez MD LAB BLOOD ORDERABLES Final Resul t [facility] [address] [place] [address] * (ABNORMAL) CBC and Differential (08/06/2024 11:26 AM EDT) Only the most recent of10 resultswithin the time period is included. WBC Count 22.24(H) 3.70 - 10.30 10*3/uL LAB HEMATOLOGY METHOD 08/06/2024 12:23 PM EDT [facility] RBC Count 4.38(L) 4.60 - 6.10 10*6/uL LAB HEMATOLOGY METHOD 08/06/2024 12:23 PM EDT [facility] HGB 11.2(L) 13.7 - 17.5 g/dL LAB HEMATOLOGY METHOD 08/06/2024 12:23 PM EDT [facility] HCT 34.8(L) 40.0 - 51.0 % LAB HEMATOLOGY METHOD 08/06/2024 12:23 PM EDT [facility] Platelet Count 313 155 - 369 10*3/uL LAB HEMATOLOGY METHOD 08/06/2024 12:23 PM EDT [facility] MCV 80 79 - 98 fL LAB HEMATOLOGY METHOD 08/06/2024 12:23 PM EDT [facility] MCH 25.6(L) 26.0 - 32.0 pg LAB HEMATOLOGY METHOD 08/06/2024 12:23 PM EDT [facility] MCHC 32.2 30.7 - 35.5 g/dL LAB HEMATOLOGY METHOD 08/06/2024 12:23 PM EDT [facility] RDW 17.2(H) 11.5 - 14.5 % LAB HEMATOLOGY METHOD 08/06/2024 12:23 PM EDT [facility] MPV 9.4 8.8 - 12.5 fL LAB HEMATOLOGY METHOD 08/06/2024 12:23 PM EDT [facility] nRBC 0.0 <=0.0 per 100 WBCs LAB HEMATOLOGY METHOD 08/06/2024 12:23 PM EDT [facility] Differential Type Automated LAB HEMATOLOGY METHOD 08/06/2024 12:23 PM EDT [facility] Neutrophils % 86 % LAB HEMATOLOGY METHOD 08/06/2024 12:23 PM EDT [facility] Lymphocytes % 7 % LAB HEMATOLOGY METHOD 08/06/2024 12:23 PM EDT [facility] Monocytes % 5 % LAB HEMATOLOGY METHOD 08/06/2024 12:23 PM EDT [facility] Eosinophils % 0 % LAB HEMATOLOGY METHOD 08/06/2024 12:23 PM EDT [facility] Basophils % 0 % LAB HEMATOLOGY METHOD 08/06/2024 12:23 PM EDT [facility] Immature Granulocytes % 2 % LAB HEMATOLOGY METHOD 08/06/2024 12:23 PM EDT [facility] Neutrophils Absolute 19.25(H) 1.60 - 6.10 10*3/uL LAB HEMATOLOGY METHOD 08/06/2024 12:23 PM EDT [facility] Lymphocytes Absolute 1.45 1.20 - 3.90 10*3/uL LAB HEMATOLOGY METHOD 08/06/2024 12:23 PM EDT [facility] Monocytes Absolute 1.14(H) 0.30 - 0.90 10*3/uL LAB HEMATOLOGY METHOD 08/06/2024 12:23 PM EDT [facility] Eosinophils Absolute 0.01 0.00 - 0.50 10*3/uL LAB HEMATOLOGY METHOD 08/06/2024 12:23 PM EDT [facility] Basophils Absolute 0.04 0.00 - 0.10 10*3/uL LAB HEMATOLOGY METHOD 08/06/2024 12:23 PM EDT [facility] Immature Granulocytes Absolute 0.35(H) 0.00 - 0.06 10*3/uL LAB HEMATOLOGY METHOD 08/06/2024 12:23 PM EDT [facility] Blood Venous blood specimen / Unknown (Central Line) Existing Catheter / Unknown 08/06/2024 11:26 AM EDT 08/06/2024 12:20 PM EDT Narrative [facility] - 08/06/2024 12:23 PM EDT Therapeutic decision making should be based on absolute values, rather than percentages. us Bobby Vazquez MD LAB BLOOD ORDERABLES Final Resul t Performing Organization Address [facility] de Phone Number [facility] [address] [place] [address] * (ABNORMAL) TSH (08/02/2024 9:30 AM EDT) Only the most recent of2 resultswithin the time period is included. Thyroid Stimulating Hormone, Plasma 6.39(H) 0.40 - 4.20 uIU/mL 08/02/2024 10:13 AM EDT [facility] Blood Blood sample taken from central line / Unknown (Port) Long-term Catheter / Unknown 08/02/2024 9:30 AM EDT 08/02/2024 9:36 AM EDT us Carlito Mccartney MD LAB BLOOD ORDERABLES Final Resu lt Performing Organization Address [facility] [place] [address] * T4, free (08/02/2024 9:30 AM EDT) Only the most recent of3 resultswithin the time period is included. Free T4, Plasma 1.6 0.8 - 1.7 ng/dL 08/02/2024 10:13 AM EDT [facility] Blood Blood sample taken from central line / Unknown (Port) Long-term Catheter / Unknown 08/02/2024 9:30 AM EDT 08/02/2024 9:36 AM EDT us Carlito Mccartney MD LAB BLOOD ORDERABLES Final Resu lt Performing Organization Address [facility] de Phone Number [address] [place] [address] * [place] Less than 1 Hour Intraoperative (07/28/2024 1:42 PM EDT) Narrative IMAGING - 07/28/2024 1:42 PM EDT Images were obtained for surgical purposes. See Gloria Velasquez's surgical note in the patient's chart for the findings. Gloria Velasquez MD IMG FLUOROSCOPY PROCEDURES F inal Result Performing Organization Address [facility] Co de Phone Number IMAGING * Urine Culture (07/28/2024 1:32 PM EDT) Only the most recent of2 resultswithin the time period is included. Culture No growth at day 1 07/29/2024 11:09 AM EDT [facility] Urine Right kidney structure / Unknown 07/28/2024 1:32 PM EDT 07/28/2024 2:03 PM EDT Comment:Pre-op diagnosis: Hydronephrosis with renal and ureteral calculus obstruction [N13.2] Gloria Velasquez MD LAB MICROBIOLOGY - GENERAL O RDERABLES Final Result Performing Organization Address [facility] [place] [address] * LA AN ELECTIVE ENDOTRACHEAL AIRWAY, PB ANESTHESIA PLACEHOLDER (07/28/2024 1:02 PM EDT) Narrative Miriam Mayfield CRNA - 07/28/2024 1:02 PM EDT Miriam Mayfield CRNA 07/28/2024 1:14 PM Airway Date/Time: 07/28/2024 1:02 PM Reason: elective Airway not difficult General Information and Staff Patient location during procedure: OR SAFETY GLASS INSTALLER: Miriam Mayfield CRNA Performed: RUKHSANA Patient Condition Indications for airway management: anesthesia [...] culture not indicated 07/27/2024 10:01 PM EDT [facility] Urine Urine specimen obtained by clean catch procedure / Unknown Non-blood Collection / Unknown 07/27/2024 7:51 PM EDT 07/27/2024 8:04 PM EDT Jin Clark MD LAB URINE ORDERABLES Fi nal Result Performing Organization Address [facility]/ZIP Co de Phone Number [facility] [address] [place] [address] * Urinalysis Microscopic Examination (07/27/2024 7:51 PM EDT) Only the most recent of3 resultswithin the time period is included. Urine Urine specimen obtained by clean catch procedure / Unknown Non-blood Collection / Unknown 07/27/2024 7:51 PM EDT 07/27/2024 7:54 PM EDT Jin Clark MD LAB URINE ORDERABLES Fi nal Result Performing Organization Address [facility] Phone Number [facility] [address] [place] [address] * (ABNORMAL) Urinalysis with reflex microscopic (Culture NOT Included) (07/27/2024 7:51 PM EDT) Only the most recent of3 resultswithin the time period is included. Color, Urine Dark Yellow LAB URINALYSIS - AUTOMATED METHOD 07/27/2024 9:44 PM EDT [facility] Clarity, Urine Clear LAB URINALYSIS - AUTOMATED METHOD 07/27/2024 9:44 PM EDT [facility] Spec Spivey, Urine 1.008 1.005 - 1.030 LAB URINALYSIS - AUTOMATED METHOD 07/27/2024 9:44 PM EDT [facility] pH, Urine 7.0 5.0 - 8.0 LAB URINALYSIS - AUTOMATED METHOD 07/27/2024 9:44 PM EDT [facility] Protein, Urine 100(A) Negative mg/dL LAB URINALYSIS - AUTOMATED METHOD 07/27/2024 9:44 PM EDT [facility] Glucose, Urine Negative Negative mg/dL LAB URINALYSIS - AUTOMATED METHOD 07/27/2024 9:44 PM EDT [facility] Ketones, Urine Negative Negative mg/dL LAB URINALYSIS - AUTOMATED METHOD 07/27/2024 9:44 PM EDT [facility] Blood, Urine Large(A) Negative LAB URINALYSIS - AUTOMATED METHOD 07/27/2024 9:44 PM EDT [facility] Bilirubin, Urine Negative Negative LAB URINALYSIS - AUTOMATED METHOD 07/27/2024 9:44 PM EDT [facility] Urobilinogen, Urine 1.0 0.2 to 1.0 mg/dL LAB URINALYSIS - AUTOMATED METHOD 07/27/2024 9:44 PM EDT [facility] Leukocytes, Urine Small(A) Negative LAB URINALYSIS - AUTOMATED METHOD 07/27/2024 9:44 PM EDT [facility] Nitrite, Urine Positive(A) Negative LAB URINALYSIS - AUTOMATED METHOD 07/27/2024 9:44 PM EDT [facility] RBC, Urine 3 0 to 3 /HPF LAB URINALYSIS - AUTOMATED METHOD 07/27/2024 9:44 PM EDT [facility] Comment: Confirmed This result was previously suppressed from the chart. WBC, Urine 0 - 5 0 to 5 /HPF LAB URINALYSIS - AUTOMATED METHOD 07/27/2024 9:44 PM EDT [facility] Comment:This result was prev iously suppressed from the chart. Squamous Epithelial Cells 0 - 2 0 to 5 /HPF LAB URINALYSIS - AUTOMATED METHOD 07/27/2024 9:44 PM EDT [facility] Comment:This result was prev iously suppressed from the chart. Hyaline Casts 0 - 2 0 to 5 /LPF LAB URINALYSIS - AUTOMATED METHOD 07/27/2024 9:44 PM EDT [facility] Comment:This result was prev iously suppressed from the chart. Bacteria, Urine Present Negative LAB URINALYSIS - AUTOMATED METHOD 07/27/2024 9:44 PM EDT [facility] Comment:This result was prev iously suppressed from the chart. Urine Urine specimen obtained by clean catch procedure / Unknown Non-blood Collection / Unknown 07/27/2024 7:51 PM EDT 07/27/2024 7:54 PM EDT Narrative [facility] - 07/27/2024 9:44 PM EDT Performed by manual method Jin Clark MD LAB URINE ORDERABLES Fi nal Result Performing Organization Address [facility] [place] [address] * Lactic acid, venous (07/27/2024 6:50 PM EDT) Only the most recent of3 resultswithin the time period is included. Lactate, Venous, Whole Blood 1.9 0.5 - 2.2 mmol/L LAB HEMATOLOGY METHOD 07/27/2024 7:14 PM EDT [facility] Blood Venous blood specimen / Unknown Venipuncture / Unknown 07/27/2024 6:50 PM EDT 07/27/2024 7:09 PM EDT Jin Clark MD LAB BLOOD ORDERABLES Fi nal Result Performing Organization Address [facility] [place] [address] * Procalcitonin (07/27/2024 6:50 PM EDT) Procalcitonin, Plasma 0.07 <0.09 ng/mL 07/27/2024 7:45 PM EDT [facility] Blood Venous blood specimen / Unknown Venipuncture / Unknown 07/27/2024 6:50 PM EDT 07/27/2024 7:04 PM EDT Narrative [facility] - 07/27/2024 7:45 PM EDT [...] predict 28 day mortality risk. Please consult www.etsrlp-oho-vyojrdytpw.com for more information. Test performed at [facility], Core Laboratory. Jin Clark MD LAB BLOOD ORDERABLES Fi nal Result Performing Organization Address City/[facility] [place] [address] * Lipase (07/27/2024 6:50 PM EDT) [facility] Lipase, Plasma 25 19 - 63 U/L 07/27/2024 7:45 PM EDT [facility] Blood Venous blood specimen / Unknown Venipuncture / Unknown 07/27/2024 6:50 PM EDT 07/27/2024 7:04 PM EDT Jin Clark MD LAB BLOOD ORDERABLES Fi nal Result Performing Organization Address [facility] [place] [address] * Phosphorus, Plasma (07/24/2024 4:06 AM EDT) Only the most recent of8 resultswithin the time period is included. [facility] Phosphorus, Plasma 3.3 2.5 - 4.5 mg/dL 07/24/2024 4:50 AM EDT [facility] Blood Venous blood specimen / Unknown Venipuncture / Unknown 07/24/2024 4:06 AM EDT 07/24/2024 4:19 AM EDT Elliot Frankel MD LAB BLOOD ORDERABLES Final Res ult Performing Organization Address [facility] [place] [address] * Magnesium, Plasma (07/24/2024 4:06 AM EDT) Only the most recent of6 resultswithin the time period is included. [facility] Magnesium, Plasma 2.0 1.9 - 2.4 mg/dL 07/24/2024 4:50 AM EDT [facility] Blood Venous blood specimen / Unknown Venipuncture / Unknown 07/24/2024 4:06 AM EDT 07/24/2024 4:19 AM EDT us Elliot Frankel MD LAB BLOOD ORDERABLES Final Res ult Performing Organization Address [facility]/[place] [address] * Sodium, urine, random (07/23/2024 10:59 PM EDT) Sodium, Urine 22 mmol/L 07/23/2024 11:46 PM EDT [facility] Urine Urine specimen obtained by clean catch procedure / Unknown Non-blood Collection / Unknown 07/23/2024 10:59 PM EDT 07/23/2024 11:14 PM EDT us Tomasz Pedraza DO LAB URINE ORDERABLES Final Res ult Performing Organization Address [facility] [place] [address] * Creatinine, urine, random (07/23/2024 10:59 PM EDT) Creatinine, Urine 16 mg/dL 07/23/2024 11:46 PM EDT [facility] Urine Urine specimen obtained by clean catch procedure / Unknown Non-blood Collection / Unknown 07/23/2024 10:59 PM EDT 07/23/2024 11:14 PM EDT us Tomasz Pedraza DO LAB URINE ORDERABLES Final Res ult Performing Organization Address [facility] [place] [address] * CT Chest w IV Contrast (07/14/2024 [...] Total DLP (Dose-Length Product): 993.50 mGy.cm (accession [id number]), 993.50 mGy.cm (accession [id number]). Please note: The reported value represents the [...] Total DLP (Dose-Length Product): 993.50 mGy.cm (accession [id number]),993.50 mGy.cm (accession [id number]). Please note: The reported valuerepresents the total [...] - 4.20 uIU/mL 06/16/2024 11:04 AM EDT [facility] Blood Venous blood specimen / Unknown (Central Line) Existing Catheter / Unknown 06/16/2024 9:54 AM EDT 06/16/2024 10:21 AM EDT us Bobby Vazquez MD LAB BLOOD ORDERABLES Final Resul t [facility] [address] [place] [address] * (ABNORMAL) Basic metabolic panel (05/27/2024 5:03 AM EDT) Only the most recent of2 resultswithin the time period is included. Glucose, Plasma 103(H) 74 - 99 mg/dL 05/27/2024 5:49 AM EDT [facility] BUN, Plasma 7(L) 8 - 23 mg/dL 05/27/2024 5:49 AM EDT [facility] Creatinine, Plasma 1.08 0.70 - 1.20 mg/dL 05/27/2024 5:49 AM EDT [facility] BUN/Creatinine Ratio 6 05/27/2024 5:49 AM EDT [facility] Sodium, Plasma 140 136 - 145 mmol/L 05/27/2024 5:49 AM EDT [facility] Potassium, Plasma 4.1 3.6 - 4.9 mmol/L 05/27/2024 5:49 AM EDT [facility] Chloride, Plasma 103 97 - 107 mmol/L 05/27/2024 5:49 AM EDT [facility] CO2, Plasma 25 22 - 29 mmol/L 05/27/2024 5:49 AM EDT [facility] Anion Gap 12 6 - 16 mmol/L 05/27/2024 5:49 AM EDT [facility] Total Calcium, Plasma 9.6 8.9 - 10.2 mg/dL 05/27/2024 5:49 AM EDT [facility] eGFRcr 78.6 mL/min/1.7 3m*2 05/27/2024 5:49 AM EDT [facility] Comment:Reported eGFRcr in m L/min/1.73m2 is based the CKD-EPI 2021 equation that does not use a race coefficient. Blood Venous blood specimen / Unknown Venipuncture / Unknown 05/27/2024 5:03 AM EDT 05/27/2024 5:17 AM EDT Rosendo Heard MD LAB BLOOD ORDERABLES Final Res ult Performing Organization Address [facility] [place] [address] * Methicillin Resistant Staphylococcus aureus (MRSA) by PCR (05/25/2024 9:30 AM EDT) Methicillin Resistant Staphylococcus aureus (MRSA) by PCR Not Detected Not Detected 05/25/2024 11:54 AM EDT [facility] Swab Both anterior nares / Unknown Non-blood Collection / Unknown 05/25/2024 9:30 AM EDT 05/25/2024 9:57 AM EDT Narrative [facility] - 05/25/2024 11:54 AM EDT This [...] ORD ERABLES Final Result Performing Organization Address [facility] [place] [address] * Blood Culture (Aerobic/Anaerobet Set) (05/25/2024 4:28 AM EDT) Culture No growth at day 5 05/30/2024 7:01 AM EDT [facility] Blood Structure of part of left upper limb / Unknown Venipuncture / Unknown 05/25/2024 4:28 AM EDT 05/25/2024 5:58 AM EDT Narrative [facility] - 05/30/2024 7:01 AM EDT Low blood volume submitted, results may be compromised Elsa Mohamud APRN LAB MICROBIOLOGY - GENERAL ORDERABLES Final Result Performing Organization Address City/[facility]/ZIP Co de Phone Number [facility] [address] [place] [address] * Prothrombin Time/INR (05/25/2024 4:28 AM EDT) Prothrombin Time 13.9 12.0 - 14.3 sec 05/25/2024 5:16 AM EDT [facility] INR 1.1 0.9 - 1.1 05/25/2024 5:16 AM EDT [facility] Blood Venous blood specimen / Unknown Venipuncture / Unknown 05/25/2024 4:28 AM EDT 05/25/2024 5:02 AM EDT Narrative [facility] - 05/25/2024 5:16 AM EDT OPTIMAL INR RANGES FOR PATIENT ON ORAL ANTICOAGULANT THERAPY Prevention of venous thromboembolism INR 2.0 to 3.0 In patients with heart disease: Atrial fibrillation INR 2.0 to 3.0 Valvular heart disease INR 2.0 to 3.0 Tissue heart valves INR 2.0 to 3.0 Mechanical prosthetic valves INR 2.5 to 3.5 Prevention of recurrent VT INR 2.5 to 3.5 Elsa Mohamud APRN LAB BLOOD ORDERABLES Final Result Performing Organization Address City/[facility]/ZIP Co de Phone Number [facility] [address] [place] [address] * (ABNORMAL) CBC (05/25/2024 4:28 AM EDT) WBC Count 8.29 3.70 - 10.30 10*3/uL LAB HEMATOLOGY METHOD 05/25/2024 5:05 AM EDT [facility] RBC Count 3.64(L) 4.60 - 6.10 10*6/uL LAB HEMATOLOGY METHOD 05/25/2024 5:05 AM EDT [facility] HGB 9.8(L) 13.7 - 17.5 g/dL LAB HEMATOLOGY METHOD 05/25/2024 5:05 AM EDT [facility] HCT 30.6(L) 40.0 - 51.0 % LAB HEMATOLOGY METHOD 05/25/2024 5:05 AM EDT [facility] Platelet Count 233 155 - 369 10*3/uL LAB HEMATOLOGY METHOD 05/25/2024 5:05 AM EDT [facility] MCV 84 79 - 98 fL LAB HEMATOLOGY METHOD 05/25/2024 5:05 AM EDT [facility] MCH 26.9 26.0 - 32.0 pg LAB HEMATOLOGY METHOD 05/25/2024 5:05 AM EDT [facility] MCHC 32.0 30.7 - 35.5 g/dL LAB HEMATOLOGY METHOD 05/25/2024 5:05 AM EDT [facility] RDW 15.6(H) 11.5 - 14.5 % LAB HEMATOLOGY METHOD 05/25/2024 5:05 AM EDT [facility] MPV 9.6 8.8 - 12.5 fL LAB HEMATOLOGY METHOD 05/25/2024 5:05 AM EDT [facility] nRBC 0.0 <=0.0 per 100 WBCs LAB HEMATOLOGY METHOD 05/25/2024 5:05 AM EDT [facility] Blood Venous blood specimen / Unknown Venipuncture / Unknown 05/25/2024 4:28 AM EDT 05/25/2024 5:02 AM EDT Elsa Mohamud APRN LAB BLOOD ORDERABLES Final Result [facility] [address] [place] [address] * (ABNORMAL) Renal function panel (05/25/2024 4:28 AM EDT) Pathologist [facility] Glucose, Plasma 116(H) 74 - 99 mg/dL 05/25/2024 5:51 AM EDT [facility] BUN, Plasma 13 8 - 23 mg/dL 05/25/2024 5:51 AM EDT [facility] Creatinine, Plasma 1.23(H) 0.70 - 1.20 mg/dL 05/25/2024 5:51 AM EDT [facility] BUN/Creatinine Ratio 11 05/25/2024 5:51 AM EDT [facility] Sodium, Plasma 141 136 - 145 mmol/L 05/25/2024 5:51 AM EDT [facility] Potassium, Plasma 4.3 3.6 - 4.9 mmol/L 05/25/2024 5:51 AM EDT [facility] Chloride, Plasma 102 97 - 107 mmol/L 05/25/2024 5:51 AM EDT [facility] CO2, Plasma 27 22 - 29 mmol/L 05/25/2024 5:51 AM EDT [facility] Anion Gap 12 6 - 16 mmol/L 05/25/2024 5:51 AM EDT [facility] Total Calcium, Plasma 9.6 8.9 - 10.2 mg/dL 05/25/2024 5:51 AM EDT [facility] Phosphorus, Plasma 5.5(H) 2.5 - 4.5 mg/dL 05/25/2024 5:51 AM EDT [facility] Albumin, Plasma 3.7 3.5 - 5.2 g/dL 05/25/2024 5:51 AM EDT [facility] eGFRcr 67.2 mL/min/1.7 3m*2 05/25/2024 5:51 AM EDT [facility] Comment:Reported eGFRcr in m L/min/1.73m2 is based the CKD-EPI 2020 equation that does not use a race coefficient. Blood Venous blood specimen / Unknown Venipuncture / Unknown 05/25/2024 4:28 AM EDT 05/25/2024 5:11 AM EDT Elsa Mohamud APRN LAB BLOOD ORDERABLES Final Result [facility] [address] [place] [address] * Streptococcus pneumoniae and Legionella Urinary Antigen (05/25/2024 12:40 AM EDT) Legionella pneumophila serogroup 1 Antigen Result (Urine) Negative Negative 05/25/2024 8:02 AM EDT [facility] Streptococcus pneumoniae Antigen Result (Urine) Negative Negative 05/25/2024 8:02 AM EDT [facility] Urine Urine specimen obtained by clean catch procedure / Unknown Non-blood Collection / Unknown 05/25/2024 12:40 AM EDT 05/25/2024 12:42 AM EDT Elsa Gauthier Cade GOYAL LAB MICROBIOLOGY - GENERAL ORDERABLES Final Result Performing Organization Address [facility] de Phone Number [facility] [address] [place] [address] * (ABNORMAL) Troponin T, High Sensitivity, 2 Hour, Plasma (05/24/2024 9:37 PM EDT) [facility] Troponin T, High Sensitivity, 2 Hour 31(H) <19 ng/L 05/24/2024 10:00 PM EDT [facility] Troponin Delta 7 <10 ng/L 05/24/2024 10:00 PM EDT [facility] Troponin Delta Interpretation Not Significant 05/24/2024 10:00 PM EDT [facility] Comment:Not Significant. No acute change in troponin observed between the baseline and 2 hour samples. Blood Venous blood specimen / Unknown Venipuncture / Unknown 05/24/2024 9:37 PM EDT 05/24/2024 9:40 PM EDT Lincoln Arnold MD LAB BLOOD ORDERABLES Final Result Performing Organization Address [facility] de Phone Number [facility] [address] [place] [address] * CT Angio Pulmonary Embolism (05/24/2024 9:27 [...] RSV - Rapid (05/24/2024 7:26 PM EDT) SARS CoV-2/COVID-19 RNA PCR Result Not Detected Not Detected 05/24/2024 8:55 PM EDT [facility] Influenza A Virus PCR Result Not Detected Not Detected 05/24/2024 8:55 PM EDT [facility] Influenza B Virus PCR Result Not Detected Not Detected 05/24/2024 8:55 PM EDT [facility] Respiratory Syncytial Virus (RSV) PCR Result Not Detected Not Detected 05/24/2024 8:55 PM EDT [facility] Swab Nasopharyngeal structure / Unknown Non-blood Collection / Unknown 05/24/2024 7:26 PM EDT 05/24/2024 7:54 PM EDT Narrative [facility] - 05/24/2024 8:55 PM EDT This [...] testing. This test was performed on the Voxel (Internap) Xpress SARS CoV-2 Plus assay test, a [...] LAB MICROBIOLOGY - GENERAL ORDERABLES Final Result Performing Organization Address [facility]/ZIP Co de Phone Number [facility] [address] [place] [address] * (ABNORMAL) Troponin now and 120 min (05/24/2024 7:26 PM EDT) [facility] Troponin T, High Sensitivity, 0 Hour 38(H) <19 ng/L 05/24/2024 7:51 PM EDT [facility] Blood Venous blood specimen / Unknown Venipuncture / Unknown 05/24/2024 7:26 PM EDT 05/24/2024 7:28 PM EDT Lincoln Arnold MD LAB BLOOD ORDERABLES Final Result Performing Organization Address [facility] Co de Phone Number [facility] [address] [place] [address] * Nasopharyngeal Respiratory Panel (05/24/2024 7:26 PM EDT) [facility] Nasopharyngeal Respiratory PCR Interpretation Not Detected for all analytes Not Detected for all analytes 05/25/2024 1:33 AM EDT [facility] Swab Nasopharyngeal structure / Unknown Non-blood Collection / Unknown 05/24/2024 7:26 PM EDT 05/24/2024 7:54 PM EDT Narrative [facility] - 05/25/2024 1:33 AM EDT This [...] Respiratory PCR Panel is performed using the [employer] ePlex instrument. This test is FDA approved for use with Nasopharyngeal swabs only. This test is used for clinical purposes. It should not be regarded as investigational or for research. The [facility] Clinical Microbiology Laboratory is certified under the Clinical Laboratory Improvement Amendments of 1988 (CLIA-88) as qualified to perform high complexity clinical laboratory testing. Elsa Mohamud JYOTSNA LAB MICROBIOLOGY - GENERAL ORDERABLES Final Result [facility] [address] [place] [address] * XR Chest 2 Views (05/24/2024 7:06 [...] 1/2 Differentiation (05/24/2024 6:47 PM EDT) Pathologist [facility] HIV 1 & 2 Antibody/Antigen Screen Non Reactive Non Reactive 05/24/2024 7:38 PM EDT [facility] Comment:Screening for HIV 1 & 2 antibodies, and P24 antigen is NONREACTIVE. No confirmatory testing is required. Blood Venous blood specimen / Unknown Venipuncture / Unknown 05/24/2024 6:47 PM EDT 05/24/2024 6:58 PM EDT Lincoln Arnold MD LAB BLOOD ORDERABLES Final Result [facility] [address] [place] [address] * Hepatitis C Antibody - ED (05/24/2024 6:47 PM EDT) Hepatitis C Antibody Negative Negative 05/24/2024 7:38 PM EDT [facility] Blood Venous blood specimen / Unknown Venipuncture / Unknown 05/24/2024 6:47 PM EDT 05/24/2024 6:59 PM EDT us Lincoln Arnold MD LAB BLOOD ORDERABLES Final Result [facility] [address] [place] [address] * EKG now - STAT (adult) (05/24/2024 5:31 PM EDT) EKG DIAGNOSIS CLASS Borderline Normal MUSE ECG Ventricular Rate 119 BPM MUSE ECG Atrial Rate 119 BPM MUSE ECG LA Interval 150 ms MUSE ECG QRSD Interval 64 ms MUSE ECG QT Interval 280 ms MUSE ECG QTC Interval 393 ms MUSE ECG P Acra 55 degrees MUSE ECG R Acra 13 degrees MUSE ECG T Wave Acra 36 degrees MUSE ECG Diagnosis Poor data quality, interpretation may be adversely affected MUSE ECG Diagnosis Sinus tachycardia MUSE ECG Diagnosis Otherwise normal ECG MUSE ECG Diagnosis MUSE ECG Diagnosis Confirmed by Soledad Orta ([id number]) on 05/25/2024 10:57:28 AM MUSE ECG 05/24/2024 5:31 PM EDT 05/25/2024 10:57 AM EDT us Lincoln Arnold MD ECG ORDERABLES Final Resul t Performing Organization Address City/[facility] Co de Phone Number MUSE ECG from Last 3 Months Insurance [employer] [facility] MEDICAID Advance Directives * Full Code (Latest [...] Patient has decision-making capacity? 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 Relationship Specialty Start Date End Date Efren Roy DO [address] [place] [address] PCP - General 03/04/23 Efren Roy DO [address] [place] [address] Pain Medicine 01/03/23 Rosa Maria Beltran APRN [address] [facility] [address] [place] [address] Nurse Practitioner Family Medicine 07/21/23 Bobby Vazquez MD [address] [facility] [address] [place] [phone] Consulting Physician Medical Oncology 09/17/23 Cally Henderson PA [address] [place] [address] Physician Blood Bank Laboratory Technician Urology 09/17/23
--- OUTSIDE RECORDS SUMMARY | 2024-08-19 12:07 | XMS_ITS | Encounter Summary ---
Author Organization [facility] Address [address] 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 0 02/27/2023 CAGE Questionnaire Score 0 023 Utilities Answer Date Recorded In the past 12 months has th e [employer], gas, oil, or water company threatened to [...] encounter Miscellaneous Notes * Telephone Encounter - Karoline Petersen - 08/17/2024 10:22 AM EDT Patient Phone Message Reason for Call: Patient is in really bad and having to take more pain medicine. Really needs to get in sooner than 08/27 Best contact number and optimal time of day to reach caller: Sister Minerva [phone] Note: Please do not reply to this message. Follow-up communication and further actions as a result of this message need to be communicated with the patient directly, if the patient is not active onMyChart. If the patient is active on MyChart, they will receive notification of the communication/outcome via iApp[employer]Met. documented in this encounter Plan of Treatment Upcoming Encounters Date Type Department Care Team (Late st Contact Info) Description 08/20/2024 9:30 AM EDT Office Visit [facility] [address] [place] [phone] Sara Tesfaye, COMPONENT TECHNICIAN 800 [facility] [address] [place] [address] 08/27/2024 1:00 PM EDT Office Visit [facility] [address] [place] [phone] Bobby Vazquez MD 800 [facility] [address] [place] [address] 08/27/2024 1:00 PM EDT Clinical Support [facility] [address] [place] [address] 08/27/2024 2:30 PM EDT Appointment [facility] [address] [place] [phone] 09/17/2024 2:30 PM EDT Appointment [facility] [address] [place] [phone] 10/08/2024 2:30 PM EDT Appointment [facility] [address] [place] [phone] 10/19/2024 11:30 AM EDT Office Visit [facility] [address] [place] [address] Kym Romero, COMPONENT TECHNICIAN 800 [facility] [address] [place] [address] 11/24/2024 11:00 AM EDT Office Visit [facility] [address] [place] [phone] Adal Franklin MD [address] [place] [phone] 12/15/2024 1:00 PM EDT Office Visit [facility] [address] [place] [address] Efren Fallon MD [address] [place] [address] 12/29/2024 9:30 AM EDT Clinical Support [facility] [address] [facility], [address] [place] [address] 12/29/2024 10:00 AM EDT Office Visit [facility] [address] [facility] [place] [address] Carlito Mccartney MD [address] [place] [address] 03/23/2025 10:40 AM EST Office Visit [facility] [address] [facility] [place] [address] Arabella Romero, JYOTSNA [address] [place] [address] documented as of this encounter [...] documented as of this encounter Care Teams Automatic Hemmer Relationship Specialty Start Date End Date Efren Ryo DO [address] [place] [address] PCP - General 03/04/23 Efren Roy DO [address] [place] [address] Pain Medicine 01/03/23 Rosa Maria Beltran APRN [address] [place] [address] Nurse Practitioner Family Medicine 07/21/23 Bobby Vazquez MD 800 [facility] [address] [place] [phone] Consulting Physician Medical Oncology 09/17/23 Cally Henderson PA [address] [facility] [address] [place] [phone] Physician Heel Edge Inker Machine Urology 09/17/23 documented as of this encounter
--- OUTSIDE RECORDS SUMMARY | 2024-08-19 12:07 | XMS_ITS | Clinical Summary ---
Author Organization [facility] Address [address] [place] [address] Phone Care Team Providers Care Motorcycle Mechanic Name Role Phone Unavailable Primary Care Provider [...]
[2024-08-19 12:14] VITALS: BP 116/78; PULSE 106; RESP 18; O2SAT 95
[2024-08-19] MEDS: 0.9 % SODIUM CHLORIDE 1000ML 1,000 ML 999 ML IV (12:14)
[2024-08-19] MEDS: SODIUM CHLORIDE 0.9% 10ML FLUSH SYRINGE 10 ML IV (13:16)
[2024-08-19 13:20] VITALS: BP 133/72; PULSE 95; RESP 18; O2SAT 95
== END 2024-08-19 13:20 | disposition home or self-care (01) ==
LOC: INF 12:03
PROVIDERS: PCP Family Medicine; Visit Provider Internal Medicine Hematology & Oncology
DX: C67.9 Malignant neoplasm of bladder, unspecified (principal)
CPT/HCPCS: 96360; J1642; J7030